=== PATIENT | male | born 1965 | race Two or more races ===

== ENCOUNTER 2020-06-10 21:41 | Inpatient (IN) | payer OTHER, SELFPAY ==
[2020-06-10 22:02] VITALS: BP 129/71; PULSE 99; RESP 18; TEMP 36.8; O2SAT 96; BMI 55.9
--- NOTE | 2020-06-10 22:12 | ECG_ITS ---
Test Reason : MEDICALLY CLEARED Blood Pressure : / mmHG Vent. Rate : 070 BPM Atrial Rate : 072 BPM P-R Int : 162 ms QRS Dur : 084 ms QT Int : 386 ms P-R-T Axes : 069 072 049 degrees QTc Int : 419 ms Normal sinus rhythm Normal ECG No previous ECGs available Referred By: Alexia Saez Electronically Signed By: SELWYN LARIOS MD MTDElizabeth
[2020-06-10] MEDS: LORazepam 0.5 MG TABLET PO (22:49)
--- NOTE | 2020-06-10 23:10 | PC.NURSE ---
[facility] faxed/pending confirmation, patient swabbed for Covid/sent to lab pending result. will continue to monitor.
[2020-06-10 23:37] VITALS: BP 111/72; PULSE 78; RESP 17; TEMP 37.1; O2SAT 97
--- NOTE | 2020-06-10 23:40 | MHC.MBSS ---
Patient compliant with lab draw order, N called/spoke with Dian/confirmed receipt of referral. Patient received Ativan 0.5 mg as ordered/with + effect. Patient reported he is currently not on any medication. Will continue to monitor.
[2020-06-11 00:04] LABS: Basophils Percent Auto 0.5 % (0-2); Eosinophils Absolute Auto 0.2 X10*3/uL (0.0-0.4); Eosinophils Percent Auto 2.9 % (0-4); Hematocrit 40.7 % (42-52); Hemoglobin 13.4 g/dl (14.0-18.0); Imm Gran Abs Auto 0.02 X10*3/uL (0.00-0.03); Imm Gran Pct Auto 0.3 % (0.0-0.4); Lymphocytes Absolute Auto 1.9 X10*3/uL (1.2-4.9); Lymphocytes Percent Auto 24.9 % (20-40); Mean Corpuscular HGB Conc 32.9 g/dl (31.0-36.0); Mean Corpuscular Hemoglobin 30.7 pg (27.0-33.0); Mean Corpuscular Volume 93.3 fL (80-98); Monocytes Absolute Auto 0.6 X10*3/uL (0.1-1.2); Monocytes Percent Auto 8.1 % (2-11); Neutrophils Absolute Auto 4.8 X10*3/uL (2.0-8.3); Neutrophils Percent Auto 63.3 % (45-73); Platelet Count 188 X10*3/uL (160-400); Red Blood Count 4.36 X10*6/uL (4.60-5.80); Red Cell Distribution Width 13.1 % (11.0-16.0); White Blood Count 7.6 X10*3/uL (4.8-10.8)
[2020-06-11 00:06] LABS: MANUAL DIFF FLAG NO
[2020-06-11 00:08] LABS: SARS COV2 PCR INHOUSE NEGATIVE (Negative)
[2020-06-11 00:10] LABS: INTERNATIONAL NORM RATIO 0.9 (0.9-1.1); Prothrombin Time 11.1 SEC (10.8-13.0)
[2020-06-11 00:32] LABS: Ethanol < 10 mg/dL
--- NOTE | 2020-06-11 00:33 | ED_ITS ---
HPI - Psych General Chief Complaint: Psychiatric Symptoms Stated Complaint: crisis Time Seen by Provider: 06/10/20 22:12 Source: patient and EMS Mode of arrival: EMS Limitations: no limitations History of Present Illness HPI Narrative: 55yoM c PMHx of substance dependent of heroin and ETOH presenting to the ED c c/o increased anxiety, depression c auditory hallucinations telling him to kill himself and SI plan to either hang himself, shot himself or jump from a building. Reports he last did heroin a few days ago and he sniffs the heroin. Reports he drank alcohol today a few hours ago drank a few beers. Repo rts he drinks daily approximately three 24 oz of beers. Reports he is currently homeless. Denies visual hallucinations. Denies any other injuries complaints or concerns at this time. Related Data Allergies Allergy/AdvReac Type Severity Reaction Status Date / Time No Known Allergies Allergy Unverified 04/21/20 15:03 [No Known Allergies*] Review of Systems Review of Systems: Constitutional : No Fever, No Chills ENT/Mouth : No Ear Pain, No Nasal Congestion, No sore throat Eyes: No Eye Pain, No Swelling, No Redness Cardiovascular : No Chest Pain, No SOB Respiratory : No Cough, No Sputum, No Dyspnea Gastrointestinal : No ingestions, No Nausea, No Vomiting, No Diarrhea, No Hematochezia, No Melena Genitourinary : No Dysuria, No Urinary Frequency, No Hematuria Musculoskeletal : No Myalgias Skin : No Skin Lesions, No rash Neuro : No Weakness, No Numbness, No Paresthesias, No Dizziness, No Headache Psych : + Anxiety, + Depression, + SI, + auditory hallucinations, No thoughts of self injury, No HI, No AVH, Heme/Lymph: No Lymphadenopathy Endocrine : No Polyuria, No Polydipsia Yes all other systems are reviewed and are negative FOR[facility]LY [facility], [facility] Past Medical History Attestation statement: The following information was validated with the patient. Social History Social History Advance Directives: No Advance Directives Information Provided: No Physical Exam Vital Signs: Vital Signs: Last Vital Signs Temp 98.8 F 06/10/20 23:37 Pulse 78 06/10/20 23:37 Resp 17 06/10/20 23:37 BP 111/72 06/10/20 23:37 Pulse Ox 97 06/10/20 23:37 Body Mass Index 55.9 vital signs have been reviewed as normal and appeared to be correct. Blood pressure normal. Heart rate normal. Respiration rate normal. Temperature normal. Oxygen saturation normal. Appearance: Alert. Oriented X3. No acute distress. Head: Normal external exam. Normocephalic. Atraumatic. No Sarah signs noted. No raccoon eyes noted Eyes: PERRLA. EOMI. Conjunctiva and sclera normal. Eyelids normal. ENT: EAC normal. TM's Normal. Pharynx normal. Uvula midline. Moist mucous membranes. Neck: Normal inspection. Neck supple. FROM. No adenopathy. Thyroid Normal. No meningeal signs. No neck mass noted. CVS: Normal heart rate and rhythm. Heart sound normal. No murmurs noted. Pulses normal throughout. Respiratory: No respiratory distress. Painless inspiration. Breath sounds normal. No wheezes/rales/rhonchi noted. Chest nontender. No accessory muscle usage noted or decreased air movement noted. Abdomen: Soft and nontender. Bowel sounds normal in all 4 quadrants. No distention noted. No organomegaly noted. No visible injury noted. Back: No CVA tenderness. Full range of motion noted. Skin: Skin warm and dry. Normal skin color. Normal skin turgor. No rashes/lesions/lacerations noted. Extremities: No lower extremity edema. Extremities exhibit normal range of motion. Extremities nontender. Neuro: Oriented X 3. No motor deficit. No sensory deficit. Reflexes normal. Psych: Appearance grossly normal, well-kept, mental status normal, speech and movement normal, speech clear, patient appears very sad and anxious along with depressed. Is cooperative. Does not have Normal thought process he has a plan to throw himself him a building, shot self or hang self. No good thought conten t. No good insight. No Judgment good. Course Course Course Narrative: 22:12PM - 55yoM c PMHx of substance dependent of heroin and ETOH presenting to the ED c c/o increased anxiety, depression c auditory hallucinations telling him to kill himself and SI plan to either hang himself, shot himself or jump from a building. - Plan: Labs, EKG, COVID swab, drug screen, etoh level and then once medically cleared [facility] evaluation. Reevaluation(s) Reevaluation #1: - BUN at 27. Otherwise all other labs WNL. COVID swab negative. Patient is able to tolerate p.o. fluids therefore will instruct patient to drink fluids. Pt + for opiates, cocaine. All other negative for drugs. ETOH negative. Patient medically cleared at this time. Being evaluated by N at this time. Time: 01:11 MDM - Psych Restraints Face to Face Assessment: Face to Face Assessment: Current Situation: After assessment of the patient, a review of the pertinent medical record and a discussion with nursing staff, I feel the patient requires a restrain intervention. Reaction To: [] Medical Condition: [] Behavioral State: [] Continued Need: [] Medical Records Attestation: I reviewed the patient's medical records. Lab Data Attestation: I reviewed the patient's lab results. Result diagrams: 06/10/20 23:56 06/10/20 23:56 Labs: Lab Results 06/10/20 06/10/20 06/10/20 Range/Units 22:57 23:56 23:56 WBC 7.6 (4.8-10.8) X10*3/uL RBC 4.36 L (4.60-5.80) X10*6/uL Hgb 13.4 L (14.0-18.0) g/dl Hct 40.7 L (42-52) % MCV 93.3 (80-98) fL MCH 30.7 (27.0-33.0) pg MCHC 32.9 (31.0-36.0) g/dl RDW 13.1 (11.0-16.0) % Plt Count 188 (160-400) X10*3/uL MPV 10.0 (9.4-12.4) fL Immature Gran % (Auto) 0.3 (0.0-0.4) % Neut % (Auto) 63.3 (45-73) % Lymph % (Auto) 24.9 (20-40) % [place] % (Auto) 8.1 (2-11) % Eos % (Auto) 2.9 (0-4) % Baso % (Auto) 0.5 (0-2) % Lymph # (Auto) 1.9 (1.2-4.9) X10*3/uL [place] # (Auto) 0.6 (0.1-1.2) X10*3/uL Eos # (Auto) 0.2 (0.0-0.4) X10*3/uL Baso # (Auto) 0.0 (0.0-0.2) X10*3/uL Abs Immat Gran (auto) 0.02 (0.00-0.03) X10*3/uL Absolute Neuts (auto) 4.8 (2.0-8.3) X10*3/uL Absolute Nucleated RBC 0.000 (0.0-0.012) X10*3/uL Nucleated RBC % (auto) 0.0 (0.0-0.2) /100WBC PT 11.1 (10.8-13.0) SEC INR 0.9 (0.9-1.1) Sodium (135-145) mmol/L Potassium (3.3-5.1) mmol/l Chloride (96-108) mmol/L Carbon Dioxide (22-29) mmol/L Anion Gap (12-20) BUN (9-16) mg/dL Creatinine (0.5-1.4) mg/dL Estim Creat Clear Calc Estimated GFR Random Glucose (60-115) mg/dL Calcium (8.4-10.2) mg/dL Magnesium (1.6-2.6) mg/dL Total Bilirubin (0.0-1.0) mg/dL Direct Bilirubin (0.0-0.5) mg/dL AST (5-37) U/L ALT (0-40) U/L Alkaline Phosphatase (39-117) U/L Total Protein (6.5-8.0) g/dL Albumin (3.5-5.0) g/dL Urine Opiates Screen (Not Detect) Ur Barbiturates Screen (Not Detect) Ur Phencyclidine Scrn (Not Detect) Ur Amphetamines Screen (Not Detect) U Benzodiazepines Scrn (Not Detect) Urine Cocaine Screen (Not Detect) U Marijuana (THC) Screen (Not Detect) Ethyl Alcohol mg/dL Coronavirus (PCR) NEGATIVE (Negative) 06/10/20 06/10/20 06/11/20 Range/Units 23:56 23:56 00:25 WBC (4.8-10.8) X10*3/uL RBC (4.60-5.80) X10*6/uL Hgb (14.0-18.0) g/dl Hct (42-52) % MCV (80-98) fL MCH (27.0-33.0) pg MCHC (31.0-36.0) g/dl RDW (11.0-16.0) % Plt Count (160-400) X10*3/uL MPV (9.4-12.4) fL Immature Gran % (Auto) (0.0-0.4) % Neut % (Auto) (45-73) % Lymph % (Auto) (20-40) % [place] % (Auto) (2-11) % Eos % (Auto) (0-4) % Baso % (Auto) (0-2) % Lymph # (Auto) (1.2-4.9) X10*3/uL [place] # (Auto) (0.1-1.2) X10*3/uL Eos # (Auto) (0.0-0.4) X10*3/uL Baso # (Auto) (0.0-0.2) X10*3/uL Abs Immat Gran (auto) (0.00-0.03) X10*3/uL Absolute Neuts (auto) (2.0-8.3) X10*3/uL Absolute Nucleated RBC (0.0-0.012) X10*3/uL Nucleated RBC % (auto) (0.0-0.2) /100WBC PT (10.8-13.0) SEC INR (0.9-1.1) Sodium 146 H (135-145) mmol/L Potassium 4.4 (3.3-5.1) mmol/l Chloride 109 H (96-108) mmol/L Carbon Dioxide 29 (22-29) mmol/L Anion Gap 12 (12-20) BUN 27 H (9-16) mg/dL Creatinine 1.23 (0.5-1.4) mg/dL Estim Creat Clear Calc 102.6 Estimated GFR > 60 Random Glucose 117 H (60-115) mg/dL Calcium 8.8 (8.4-10.2) mg/dL Magnesium 2.2 (1.6-2.6) mg/dL Total Bilirubin 0.3 (0.0-1.0) mg/dL Direct Bilirubin 0.2 (0.0-0.5) mg/dL AST 15 (5-37) U/L ALT 14 (0-40) U/L Alkaline Phosphatase 67 (39-117) U/L Total Protein 6.6 (6.5-8.0) g/dL Albumin 3.8 (3.5-5.0) g/dL Urine Opiates Screen POSITIVE H (Not Detect) Ur Barbiturates Screen Not Detected (Not Detect) Ur Phencyclidine Scrn Not Detected (Not Detect) Ur Amphetamines Screen Not Detected (Not Detect) U Benzodiazepines Scrn Not Detected (Not Detect) Urine Cocaine Screen POSITIVE H (Not Detect) U Marijuana (THC) Screen Not Detected (Not Detect) Ethyl Alcohol < 10 mg/dL Coronavirus (PCR) (Negative) Discharge Plan Discharge Clinical Impression: Acute anxiety, Suicidal ideations, Acute post-traumatic stress disorder Depression Qualifiers: Depression Type: unspecified Qualified Code(s): F32.9 - Major depressive disorder, single episode, unspecified
[2020-06-11 00:36] LABS: Alanine Aminotransferase 14 U/L (0-40); Albumin Level 3.8 g/dL (3.5-5.0); Alkaline Phosphatase 67 U/L (39-117); Anion Gap 12 (12-20); Aspartate Amino Transferase 15 U/L (5-37); Bilirubin Direct 0.2 mg/dL (0.0-0.5); Bilirubin Total 0.3 mg/dL (0.0-1.0); Blood Urea Nitrogen 27 mg/dL (9-16); Calcium 8.8 mg/dL (8.4-10.2); Carbon Dioxide 29 mmol/L (22-29); Chloride 109 mmol/L (96-108); Creatinine Clr Calc Pharmacy 102.6; Estimated Glomerular Filt Rate > 60; Glucose Random 117 mg/dL (60-115); Magnesium 2.2 mg/dL (1.6-2.6); Potassium 4.4 mmol/l (3.3-5.1); Sodium 146 mmol/L (135-145); Total Protein 6.6 g/dL (6.5-8.0)
[2020-06-11 01:02] LABS: Amphetamine Screen Urine Not Detected (Not Detect); Barbiturates, Urine Not Detected (Not Detect); Benzodiazepines Screen Urine Not Detected (Not Detect); Cannabinoid Screen Urine Not Detected (Not Detect); Cocaine Screen Urine POSITIVE (Not Detect); Opiate Screen Urine POSITIVE (Not Detect); Phencyclidine Screen Urine Not Detected (Not Detect)
[2020-06-11] MEDS: Ibuprofen 600 MG TABLET PO (01:20)
--- NOTE | 2020-06-11 01:24 | PC.NURSE ---
Patient complains of groin & leg pain 12/12, Ibuprofen 600 mg administered as ordered/pending effect/response. Compliant with EKG, will continue to monitor.
--- NOTE | 2020-06-11 02:35 | PC.NURSE ---
Patient in his room, speaking with [facility], seems enagaged, will continue to monitor.
--- NOTE | 2020-06-11 03:46 | PC.NURSE ---
MAYAN finished assessing the patient, disposition updated, patient is in patient bed search, patient currently in bed appears sleeping, no distress observed/reported, will continue to monitor.
--- NOTE | 2020-06-11 06:03 | PC.NURSE ---
Patient in bed appears sleeping comfortably, no distress observed/reported, respiration +/=/non-labored bilaterally, will continue to monitor.
--- NOTE | 2020-06-11 07:44 | PC.NURSE ---
Report received from ATIYA Castillo. Pt resting, resp unlabored.
[2020-06-11 12:00] VITALS: BP 143/78; PULSE 61; RESP 20; TEMP 37.1; O2SAT 98
[2020-06-11 16:22] VITALS: BP 156/85; PULSE 69; RESP 16; TEMP 37.2; O2SAT 97
--- NOTE | 2020-06-11 18:07 | PC.NURSE ---
Pt resting, resp unlabored. Pt awake earlier, went to bathroom- answers only briefly when asked questions. No concerns reported.
--- NOTE | 2020-06-11 19:20 | PC.NURSE ---
Patient in bed appears sleeping, per report patient has been mostly isolative in his room, eating and hydrating well, elimination intact, no distress reported, patient received no medication through out the day, will continue to monitor.
[2020-06-11 21:48] VITALS: BP 142/84; PULSE 67; RESP 18; TEMP 37.1; O2SAT 100
[2020-06-11] MEDS: LORazepam 0.5 MG TABLET PO (23:43)
--- NOTE | 2020-06-12 00:11 | PC.NURSE ---
Patient seems restless, prn Ativan 0.5 mg administered/pending effect, compliant with medication/Vital Signs assessment. No distress reported. Will continue to monitor.
[2020-06-12 00:24] VITALS: BP 158/79; PULSE 63; RESP 17; TEMP 36.9; O2SAT 99
[2020-06-12] MEDS: LORazepam 0.5 MG TABLET PO ×2 (04:15→21:12)
--- NOTE | 2020-06-12 04:22 | PC.NURSE ---
Patient tremulous while in bed lying, sneezed few times, appears restless, possible detoxing, provider notified/ordered Ativan 0.5 mg/administered as ordered/covered with warm blanket. Will continue to monitor.
--- NOTE | 2020-06-12 06:35 | PC.NURSE ---
Patient in bed appears sleeping restlessly, no distress observed/reported, respiration +/=/non-labored bilaterally, will continue to monitor.
--- NOTE | 2020-06-12 07:28 | PC.NURSE ---
Report received from ATIYA Castillo. Pt resting, resp unlabored.
[2020-06-12 10:51] VITALS: BP 141/89; PULSE 68; RESP 15; TEMP 36.9; O2SAT 99
[2020-06-12 16:06] VITALS: BP 166/93; PULSE 64; RESP 18; TEMP 37.2; O2SAT 99
--- NOTE | 2020-06-12 17:58 | PC.NURSE ---
Pt awake, vomiting, reports he is withdrawing, last used 2 days ago. Pt states he would like to start suboxone. N March aware.
[2020-06-12 18:00] VITALS: PULSE 64
--- NOTE | 2020-06-12 18:44 | PC.NURSE ---
no further vomiting at this time. pt offered ativan x2 but declined.
--- NOTE | 2020-06-12 20:36 | PC.NURSE ---
Patient observed sneezing few times, restless, over 50 hours last use heroin, patient was on Suboxone 03/06 film BID stopped taking it since 04/26/20, patient is going through mild detox at this time but refused to take Suboxone 11/03 at this time stating it will his feeling worse patient educated/continued refusing suboxone. Will continue to monitor and assess for COWS.
[2020-06-12 23:55] VITALS: RESP 17
[2020-06-13] VITALS (8 sets, daily range): BP systolic 109–161; BP diastolic 63–86; PULSE 60–102; RESP 17–18; TEMP 36.5–37.9; O2SAT 96–99
--- NOTE | 2020-06-13 00:52 | PC.NURSE ---
Patient in bed appears sleeping, no distress observed/reported, respiration +/=/non-labored bilaterally, will continue to monitor for withdrawal and provide comfort.
--- NOTE | 2020-06-13 02:57 | PC.NURSE ---
Patient in bed appears sleeping, no distress observed/reported, respiration +/=/non-labored bilaterally, will continue to monitor.
--- NOTE | 2020-06-13 03:24 | PC.NURSE ---
Patient got reevaluated by [facility] disposition unchanged inpatient bed search. Will continue to monitor.
--- NOTE | 2020-06-13 05:03 | PC.NURSE ---
Patient in bed appears sleeping, patient was up earlier briefly for bathroom use and back, no distress reported, respiration +/=/non-labored bilaterally, will continue to monitor.
[2020-06-13] MEDS: LORazepam 0.5 MG TABLET PO (06:15)
--- NOTE | 2020-06-13 06:22 | PC.NURSE ---
Patient in bed resting quietly, denied distress, temp was 100.2 patient not hydrating well, encouraged fluid intake, COWS assessed scored 3, PRN Atian 05 mg administered as ordered, provider notified/no new order this time, will monitor temperature.
--- NOTE | 2020-06-13 06:59 | PC.NURSE ---
Report recieved. Pt currently resting, in no apparent distress. Pt is inpatient bedsearch. Breakfast at bedside.
[2020-06-13] MEDS: Acetaminophen 325 MG TABLET 650 MG PO (09:36)
[2020-06-13] MEDS: Buprenorphine/Naloxone 4/1 mg FILM 1 FILM SUBLINGUAL ×2 (09:36→21:13)
--- NOTE | 2020-06-13 20:59 | PC.NURSE ---
Pt 3 day signed on 06/13, up on 06/16
[2020-06-13] MEDS: Divalproex Sodium ER 500 MG TAB.ER.24H PO (21:12)
[2020-06-13] MEDS: QUEtiapine Fumarate 100 MG TABLET PO (21:12)
[2020-06-13] MEDS: Prazosin HCL 1 MG CAPSULE PO (21:14)
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
[2020-06-14 06:20] VITALS: BP 117/58; PULSE 63; RESP 16; TEMP 36.5; O2SAT 100
[2020-06-14] MEDS: Nicotine 21 MG PATCH.TD24 TRANSDERMA (08:39)
[2020-06-14] MEDS: QUEtiapine Fumarate 100 MG TABLET PO ×2 (08:39→20:38)
[2020-06-14] MEDS: LORazepam 0.5 MG TABLET PO (08:41)
[2020-06-14 08:53] LABS: Alanine Aminotransferase 13 U/L (0-40); Albumin Level 3.9 g/dL (3.5-5.0); Alkaline Phosphatase 60 U/L (39-117); Anion Gap 12 (12-20); Aspartate Amino Transferase 11 U/L (5-37); Bilirubin Total 0.8 mg/dL (0.0-1.0); Blood Urea Nitrogen 28 mg/dL (9-16); Calcium 9.3 mg/dL (8.4-10.2); Carbon Dioxide 30 mmol/L (22-29); Chloride 100 mmol/L (96-108); Cholesterol 150 mg/dL; Creatinine Clr Calc Pharmacy 115.8; Estimated Glomerular Filt Rate > 60; Glucose Fasting 94 mg/dL (60-99); HDL Cholesterol 51 mg/dL; LDL Cholesterol Calculated 89 mg/dl; Potassium 4.6 mmol/l (3.3-5.1); Sodium 137 mmol/L (135-145); Triglycerides 53 mg/dL
[2020-06-14 09:14] LABS: Thyroid Stimulating Hormone 1.95 uIU/mL (0.32-4.0)
[2020-06-14 09:26] LABS: Folate 15.9 ng/mL (> or = 4.0); Vitamin B12 227 pg/mL (200-900)
[2020-06-14 10:44] VITALS: BP 117/58; PULSE 63; TEMP 36.5
[2020-06-14 18:00] VITALS: BP 112/63; PULSE 95; TEMP 36.2
[2020-06-14 20:39] VITALS: BP 112/63; PULSE 92
[2020-06-14] MEDS: Prazosin HCL 1 MG CAPSULE PO (20:39)
[2020-06-14] MEDS: Buprenorphine/Naloxone 4/1 mg FILM 1 FILM SUBLINGUAL (20:39)
[2020-06-14] MEDS: Divalproex Sodium ER 500 MG TAB.ER.24H PO (20:39)
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
[2020-06-15 06:00] VITALS: BP 115/72; PULSE 79; TEMP 36.5; O2SAT 100
[2020-06-15] MEDS: Nicotine 21 MG PATCH.TD24 TRANSDERMA (08:55)
[2020-06-15] MEDS: QUEtiapine Fumarate 100 MG TABLET PO ×2 (08:55→20:50)
[2020-06-15] MEDS: Buprenorphine/Naloxone 4/1 mg FILM 1 FILM SUBLINGUAL ×2 (08:56→14:59)
[2020-06-15 18:00] VITALS: BP 109/72; PULSE 82; TEMP 36.6
[2020-06-15 20:51] VITALS: BP 109/72; PULSE 82
[2020-06-15] MEDS: Divalproex Sodium ER 500 MG TAB.ER.24H PO (20:51)
[2020-06-15] MEDS: Prazosin HCL 1 MG CAPSULE PO (20:51)
--- NOTE | 2020-06-15 23:17 | HO.PSYCHPN ---
Subjective Subjective Reason For Visit: depression hallucinations si Subjective Notes: Conditional Voluntary and 3 Day Interim History: pt doing better with dep and seroquel no frankel future oriented Medication Compliance: Yes Mental Status Exam Mental Status Exam Patient Appearance: Appropriate Patient Orientation: Person, Place and Time Level of Consciousness: Awake Patient Behavior: Appropriate, Cooperative and Passive Mood Description: Calm and Appropriate Affect Description: Calm, Appropriate and Anxious Memory Description: Intact Hallucinations: None Delusions: Not Present Thought Process: Intact Thought Content: positive for Intact, negative for Suicidal Ideation and negative for Homicidal Ideation Diagnostics Vital Signs (24Hr): Vital Signs - 24 hr 06/15/20 06:00 06/15/20 18:00 06/15/20 20:51 Temperature 97.7 F 98 F Pulse Rate 79 82 82 Blood Pressure 115/72 109/72 109/72 Pulse Oximetry 100 Body Mass Index 55.9 Labs Results: 06/10/20 23:56 06/14/20 07:59 Labs: Laboratory Results - last 48 hr 06/14/20 06/14/20 07:59 07:59 Sodium 137 Potassium 4.6 Chloride 100 Carbon Dioxide 30 H Anion Gap 12 BUN 28 H Creatinine 1.09 Estim Creat Clear Calc 115.8 Estimated GFR > 60 Fasting Glucose 94 Calcium 9.3 Total Bilirubin 0.8 AST 11 ALT 13 Alkaline Phosphatase 60 Total Protein 7.0 Albumin 3.9 Triglycerides 53 Cholesterol 150 LDL Cholesterol, Calc 89 HDL Cholesterol 51 Vitamin B12 227 Folate 15.9 TSH 1.95 Medications Medications Current Medications Generic Name Dose Route Start Last Admin Trade Name Freq PRN Reason Stop Dose Admin Acetaminophen 650 mg 06/13/20 20:07 Acetaminophen 325 Mg Tablet PO Q6H PRN Headache/Pain Mild Scale (1-3) Al Hydroxide/Mg Hydroxide 30 ml 06/13/20 20:07 Magnesium Hydrox/Alum Hydrox 30 Ml Oral.Susp PO Q6H PRN Heartburn/Nausea Buprenorphine/Naloxone 1 tab 06/16/20 09:00 Buprenorphine/Naloxone 8/2 Mg Tab.Subl SUBLINGUAL DAILY RAS Divalproex Sodium 500 mg 06/13/20 21:00 06/15/20 20:51 Divalproex Sodium Er 500 Mg Tab.Er.24h PO 500 mg BEDTIME RAS Administration Hydroxyzine HCl 25 mg 06/13/20 20:07 Hydroxyzine Hcl 25 Mg Tablet PO BEDTIME PRN Anxiety Lorazepam 0.5 mg 06/15/20 22:22 Lorazepam 0.5 Mg Tablet PO Q6H PRN anxiety Magnesium Hydroxide 30 ml 06/13/20 20:07 Milk Of Magnesia 30 Ml Oral.Susp PO DAILY PRN Constipation Nicotine 21 mg 06/14/20 09:00 06/15/20 08:55 Nicotine 21 Mg Patch.Td24 TRANSDERMA 21 mg DAILY RAS Administration Nicotine Polacrilex 2 mg 06/13/20 20:07 Nicotine Polacrilex 2 Mg Gum BUCCAL Q2H PRN Nicotine Cravings Prazosin HCl 1 mg 06/13/20 21:00 06/15/20 20:51 Prazosin Hcl 1 Mg Capsule PO 1 mg BEDTIME RAS Administration Protocol Quetiapine Fumarate 50 mg 06/13/20 20:07 Quetiapine Fumarate 50 Mg Tablet PO Q4H PRN Anxiety Quetiapine Fumarate 100 mg 06/13/20 21:00 06/15/20 20:50 Quetiapine Fumarate 100 Mg Tablet PO 100 mg BID RAS Administration Trazodone HCl 50 mg 06/13/20 20:07 Trazodone Hcl 50 Mg Tablet PO BEDTIME PRN Insomnia Allergies Allergies Allergy/AdvReac Type Severity Reaction Status Date / Time No Known Allergies Allergy Unverified 06/14/20 08:31 [No Known Allergies*] Assessment & Plan Assessment & Plan (1) Suicidal ideations: Status: Acute Code(s): R45.851 - Suicidal ideations (2) Depression: Qualifiers: Depression Type: unspecified Qualified Code(s): F32.9 - Major depressive disorder, single episode, unspecified Status: Acute Code(s): F32.9 - Major depressive disorder, single episode, unspecified (3) Cocaine use disorder: Status: Acute Code(s): F14.10 - Cocaine abuse, uncomplicated (4) Chronic post-traumatic stress disorder (PTSD): Status: Acute Code(s): F43.12 - Post-traumatic stress disorder, chronic Assessment and Plan: restart Seroquel on Depakote patient much more stable continue Suboxone referral for outpatient treatment Greater than 50% of the session was spent on counseling and/or coordination of care Patient educated on: diagnosis, medication risk/benefits and substance abuse Reason for contiued inpatient stay Substantial Risk for: harm to self and rapid decompensation
[2020-06-16 06:12] VITALS: BP 123/73; PULSE 73; RESP 16; TEMP 36.7; O2SAT 99
[2020-06-16 07:00] VITALS: BMI 27.6
[2020-06-16] MEDS: Nicotine 21 MG PATCH.TD24 TRANSDERMA (09:22)
[2020-06-16] MEDS: QUEtiapine Fumarate 100 MG TABLET PO ×2 (09:22→21:17)
[2020-06-16] MEDS: Buprenorphine/Naloxone 8/2 mg TAB.SUBL 1 TAB SUBLINGUAL (09:23)
[2020-06-16 18:00] VITALS: BP 134/75; PULSE 87; TEMP 36.4
[2020-06-16 21:17] VITALS: BP 131/75; PULSE 87
[2020-06-16] MEDS: Divalproex Sodium ER 500 MG TAB.ER.24H PO (21:17)
[2020-06-16] MEDS: Prazosin HCL 1 MG CAPSULE PO (21:17)
--- NOTE | 2020-06-16 23:31 | HO.PSYCHPN ---
Subjective Subjective Reason For Visit: depression hallucinations si Diagnostics Vital Signs (24Hr): Vital Signs - 24 hr 06/16/20 06:12 06/16/20 18:00 06/16/20 21:17 Temperature 98.1 F 97.6 F Pulse Rate 73 87 87 Respiratory Rate 16 Blood Pressure 123/73 134/75 131/75 Pulse Oximetry 99 Body Mass Index 27.6 Labs Results: 06/10/20 23:56 06/14/20 07:59 Medications Medications Current Medications Generic Name Dose Route Start Last Admin Trade Name Freq PRN Reason Stop Dose Admin Acetaminophen 650 mg 06/13/20 20:07 Acetaminophen 325 Mg Tablet PO Q6H PRN Headache/Pain Mild Scale (1-3) Al Hydroxide/Mg Hydroxide 30 ml 06/13/20 20:07 Magnesium Hydrox/Alum Hydrox 30 Ml Oral.Susp PO Q6H PRN Heartburn/Nausea Buprenorphine/Naloxone 1 tab 06/16/20 09:00 06/16/20 09:23 Buprenorphine/Naloxone 8/2 Mg Tab.Subl SUBLINGUAL 1 tab DAILY RAS Administration Divalproex Sodium 500 mg 06/13/20 21:00 06/16/20 21:17 Divalproex Sodium Er 500 Mg Tab.Er.24h PO 500 mg BEDTIME RAS Administration Hydroxyzine HCl 25 mg 06/13/20 20:07 Hydroxyzine Hcl 25 Mg Tablet PO BEDTIME PRN Anxiety Lorazepam 0.5 mg 06/15/20 22:22 Lorazepam 0.5 Mg Tablet PO Q6H PRN anxiety Magnesium Hydroxide 30 ml 06/13/20 20:07 Milk Of Magnesia 30 Ml Oral.Susp PO DAILY PRN Constipation Nicotine 21 mg 06/14/20 09:00 06/16/20 09:22 Nicotine 21 Mg Patch.Td24 TRANSDERMA 21 mg DAILY RAS Administration Nicotine Polacrilex 2 mg 06/13/20 20:07 Nicotine Polacrilex 2 Mg Gum BUCCAL Q2H PRN Nicotine Cravings Prazosin HCl 1 mg 06/13/20 21:00 06/16/20 21:17 Prazosin Hcl 1 Mg Capsule PO 1 mg BEDTIME RAS Administration Protocol Quetiapine Fumarate 50 mg 06/13/20 20:07 Quetiapine Fumarate 50 Mg Tablet PO Q4H PRN Anxiety Quetiapine Fumarate 100 mg 06/13/20 21:00 06/16/20 21:17 Quetiapine Fumarate 100 Mg Tablet PO 100 mg BID RAS Administration Trazodone HCl 50 mg 06/13/20 20:07 Trazodone Hcl 50 Mg Tablet PO BEDTIME PRN Insomnia Allergies Allergies Allergy/AdvReac Type Severity Reaction Status Date / Time No Known Allergies Allergy Unverified 06/14/20 08:31 [No Known Allergies*] Assessment & Plan Assessment & Plan (1) Chronic post-traumatic stress disorder (PTSD): Status: Acute Code(s): F43.12 - Post-traumatic stress disorder, chronic (2) Atypical bipolar disorder: Status: Acute Code(s): F31.89 - Other bipolar disorder (3) Opioid use disorder, moderate, in early remission, on maintenance therapy, dependence: Status: Acute Code(s): F11.21 - Opioid dependence, in remission Greater than 50% of the session was spent on counseling and/or coordination of care
[2020-06-17 06:15] VITALS: BP 121/68; PULSE 80; RESP 18; TEMP 36.6; O2SAT 99
[2020-06-17] MEDS: Buprenorphine/Naloxone 8/2 mg TAB.SUBL 1 TAB SUBLINGUAL (09:19)
[2020-06-17] MEDS: QUEtiapine Fumarate 100 MG TABLET PO (09:19)
[2020-06-17] MEDS: Nicotine 21 MG PATCH.TD24 TRANSDERMA (09:20)
[2020-06-17] MEDS: Naloxone HCl Nasal TAKE HOME 4 MG SPRAY NOSTRILALT (11:51)
[2020-06-17] MEDS: Cyanocobalamin (Vitamin B-12) 1,000 MCG/ML VIAL 1000 MCG IM (12:01)
[2020-06-17 13:33] LABS: Valproate < 2.0 mcg/mL (50.0-100.0)
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
== END 2020-06-17 14:11 | disposition home or self-care (01) | DRG 753 ==
LOC: HO.ED 06-11 00:42 → HO.PM5 06-13 13:02
PROVIDERS: Physician Assistant Medical; Admitting Provider Psychiatry & Neurology Psychiatry; Emergency Provider Internal Medicine; Visit Provider Psychiatry & Neurology Psychiatry
DX: F31.89 Other bipolar disorder (principal); R45.851 Suicidal ideations; F11.20 Opioid dependence, uncomplicated; F43.10 Post-traumatic stress disorder, unspecified; F17.210 Nicotine dependence, cigarettes, uncomplicated; Z71.6 Tobacco abuse counseling; Z20.828 Contact with and (suspected) exposure to other viral communicable diseases; Z79.899 Other long term (current) drug therapy
CPT/HCPCS: 36415; 80048; 80053; 80061; 80076; 80164; 80307; 80320; 82607; 82746; 83735; 84443; 85025; 85610; 90792; 93005; 99232; 99239; 99285; J0573; J0574; U0003

== ENCOUNTER → 2020-06-20 14:08 | Outpatient (BNVA) | payer MEDICAID, SELFPAY | PROVIDERS: Visit Provider Internal Medicine | DX: F11.20 Opioid dependence, uncomplicated (principal); F14.10 Cocaine abuse, uncomplicated; F31.89 Other bipolar disorder | CPT/HCPCS: 80305; 99211; 99212 ==

== ENCOUNTER → 2020-07-18 11:06 | Outpatient (BNVA) | payer OTHER, SELFPAY | PROVIDERS: Visit Provider Internal Medicine | DX: Z76.89 Persons encountering health services in other specified circumstances (principal) ==

== ENCOUNTER → 2020-08-01 15:20 | Outpatient (BNVA) | payer OTHER, SELFPAY | PROVIDERS: Visit Provider Internal Medicine | DX: Z76.89 Persons encountering health services in other specified circumstances (principal) ==

== ENCOUNTER → 2020-08-15 09:11 | Outpatient (BNVA) | payer MEDICAID, OTHER, SELFPAY | PROVIDERS: Visit Provider Internal Medicine | DX: Z76.89 Persons encountering health services in other specified circumstances (principal) ==

== ENCOUNTER → 2020-08-22 13:25 | Outpatient (BNVA) | payer MEDICAID, OTHER, SELFPAY | PROVIDERS: PCP Internal Medicine; Visit Provider Internal Medicine ==

== ENCOUNTER → 2020-08-29 10:59 | Outpatient (BNVA) | payer MEDICAID, OTHER, SELFPAY | PROVIDERS: Visit Provider Internal Medicine ==

== ENCOUNTER → 2020-09-06 10:46 | Outpatient (BNVA) | payer MEDICAID, OTHER, SELFPAY | PROVIDERS: Visit Provider Internal Medicine ==

== ENCOUNTER → 2020-09-13 10:37 | Outpatient (BNVA) | payer MEDICAID, OTHER, SELFPAY | PROVIDERS: Visit Provider Internal Medicine ==

== ENCOUNTER 2020-09-14 08:31 | Emergency (ER) | payer MEDICAID, SELFPAY ==
[2020-09-14 09:03] VITALS: BP 151/93; PULSE 78; RESP 12; TEMP 36.8; O2SAT 100; BMI 26.3
[2020-09-14 10:13] LABS: MANUAL DIFF FLAG NO
--- NOTE | 2020-09-14 10:13 | ED.PSYCH ---
HPI - Psych General Chief Complaint: Psychiatric Symptoms Stated Complaint: CRISIS Source: patient Mode of arrival: ambulatory Limitations: no limitations History of Present Illness HPI Narrative: Patient presents to ED for suicide ideation with no plan. Patient states he lost medication, is homeless, and feels depressed. Once again patient has no actual plan on how to kill himself Related Data Home Medications Medication Instructions Recorded Confirmed prazosin 1 mg capsule 3 mg PO BEDTIME cap 07/15/20 09/06/20 quetiapine 100 mg tablet 100 mg PO BID PRN tab 07/15/20 09/06/20 quetiapine 50 mg tablet 400 mg PO BEDTIME tab 07/15/20 09/06/20 Previous Rx's Medication Instructions Recorded divalproex 750 mg PO BEDTIME 30 Days #90 tab 06/17/20 nicotine 21 mg TRANSDERMAL DAILY #21 ea 06/17/20 buprenorphine 8 mg-naloxone 2 mg 2 film SUBLINGUAL DAILY 7 Days #14 09/13/20 sublingual film ea Allergies Allergy/AdvReac Type Severity Reaction Status Date / Time No Known Allergies Allergy Verified 07/15/20 13:35 [No Known Allergies*] Review of Systems Review of Systems: Yes all other systems are reviewed and are negative Constitutional: Constitutional: Reports as per HPI and Reports no additional constitutional complaints Eyes: Eyes: Reports as per HPI and Reports no additional eye complaints ENT: Reports system reviewed and no additional complaints, except as documented and Reports as per HPI Cardiovascular: Cardiovascular: Reports as per HPI and Reports no additional cardiovascular complaints Respiratory: Respiratory: Reports as per HPI and Reports no additional respiratory complaints Gastrointestinal: Gastrointestinal: Reports as per HPI and Reports no additional gastrointestinal complaints Genitourinary: Genitourinary: Reports no additional male genitourinary complaints and Reports as per HPI Musculoskeletal: Musculoskeletal: Reports no additional musculoskeletal complaints and Reports as per HPI Integumentary/Breasts: Skin/Breast: Reports system reviewed and no additional complaints, except as docu and Reports as per HPI Neurologic: Reports system reviewed and no additional complaints, except as documented and Reports as per HPI Psychiatric: Psychiatric: Reports no additional psychiatric complaints, Reports as per HPI and Reports depression [facility] Past Medical History Medical History Atypical bipolar disorder Chronic post-traumatic stress disorder (PTSD) Cocaine use disorder Opioid use disorder, moderate, in early remission, on maintenance therapy, dependence Social History Social History (System 06/14/20 @ 08:31 by Briana Horton) Household Members: None Housing: Homeless Alcohol intake: unknown Smoking Status: Current every day smoker Tobacco Type: Cigarette Packs Per Day: 2 Cigarettes Per Day: 40.0 Years Smoked: 10 years Second Hand Smoke Exposure: No Substance Use Type: Crack/Cocaine Advance Directives: No Advance Directives Information Provided: No service: No Sexual orientation: Straight/Heterosexual Physical Exam Vital Signs: Vital Signs: Last Vital Signs Temp 98.2 F 09/14/20 09:03 Pulse 78 09/14/20 09:03 Resp 12 09/14/20 09:03 BP 151/93 H 09/14/20 09:03 Pulse Ox 100 09/14/20 09:03 Body Mass Index 26.3 Const: General: cooperative, healthy appearing, comfortable, no acute distress, well developed, alert, awake and Physically active Orientation/consciousness: patient oriented x3 HENMT: Head: Yes normal to inspection, Yes No palpable skull fracture present, Yes normocephalic and Yes atraumatic Eyes: General: appearance normal, both eyes and all related structures Neck: Neck: Yes normal visual inspection, Yes full ROM, Yes no lymphadenopathy, Yes no meningeal signs, Yes trachea midline and Yes supple Chest: Chest palpation & inspection: normal inspection of the chest and normal palpation of entire chest wall Resp: Effort & Inspection: normal respiratory effort and able to speak in complete sentences Auscultation: clear to auscultation bilaterally Cardio: Jugular venous distension: no JVD Heart sounds: S1 normal heart sound present and S2 normal heart sound present GI: Inspection: Yes normal to inspection and No abdominal wall ecchymosis Palpation (GI): Soft to palpation, not firm, nontender, no guarding and not rigid : General: No CVA tenderness and Yes no CVA tenderness Back/Spine/Pelvis: Back: no CVA tenderness and No CVA tenderness Skin: General skin exam: no rashes or lesions noted and elasticity normal Neuro: General: patient oriented x3, no meningeal signs and CN's II-XI intact bilaterally Cranial nerves: Yes CN's II-XII intact bilaterally Extrem: General: Yes normal to inspection and Yes full ROM Psych: Appearance: grossly normal, well kempt and not disheveled Mental Status: mental status grossly normal Speech and movement: Normal speech and movement present Affect: normal affect Attitude: cooperative Thought process: Normal thought process present Thought content: Suicidality present Insight: Good insight present (Psych) Course Course Course Narrative: Patient had basic labs and if medically cleared will have crisis evaluation. Patient not in distress Reevaluation(s) Reevaluation #1: Pataient is medically cleared and awating [facility] evaluation. Case signed out MIRIAM Wilson Time: 17:57 Discharge Plan Discharge Prescriptions: No Action buprenorphine-naloxone [Suboxone] 8-2 mg film 2 film sublingual DAILY 7 Days Qty: 14 RF: 0 nicotine 21 mg/24 hr Patch 24 Hour 21 mg transdermal DAILY Qty: 21 RF: 0 divalproex 250 mg tablet extended release 24 hr 750 mg PO BEDTIME 30 Days Qty: 90 RF: 0 prazosin 1 mg capsule 3 mg PO BEDTIME RF: 0 quetiapine 50 mg tablet 400 mg PO BEDTIME RF: 0 quetiapine 100 mg tablet 100 mg PO BID PRNRF: 0
[2020-09-14 10:27] LABS: Basophils Percent Auto 0.6 % (0-2); Eosinophils Absolute Auto 0.1 X10*3/uL (0.0-0.4); Eosinophils Percent Auto 1.9 % (0-4); Hematocrit 43.2 % (42-52); Hemoglobin 14.3 g/dl (14.0-18.0); Imm Gran Abs Auto 0.02 X10*3/uL (0.00-0.03); Imm Gran Pct Auto 0.3 % (0.0-0.4); Lymphocytes Absolute Auto 1.2 X10*3/uL (1.2-4.9); Lymphocytes Percent Auto 16.8 % (20-40); Mean Corpuscular HGB Conc 33.1 g/dl (31.0-36.0); Mean Corpuscular Hemoglobin 30.6 pg (27.0-33.0); Mean Corpuscular Volume 92.3 fL (80-98); Mean Platelet Volume 10.2 fL (9.4-12.4); Monocytes Absolute Auto 0.6 X10*3/uL (0.1-1.2); Monocytes Percent Auto 8.1 % (2-11); Neutrophils Percent Auto 72.3 % (45-73); Platelet Count 222 X10*3/uL (160-400); Red Blood Count 4.68 X10*6/uL (4.60-5.80); Red Cell Distribution Width 13.4 % (11.0-16.0); White Blood Count 6.9 X10*3/uL (4.8-10.8)
[2020-09-14 10:54] LABS: Ethanol < 10 mg/dL
[2020-09-14 10:56] LABS: Alanine Aminotransferase 22 U/L (0-40); Albumin Level 3.8 g/dL (3.5-5.0); Alkaline Phosphatase 61 U/L (39-117); Anion Gap 13 (12-20); Aspartate Amino Transferase 21 U/L (5-37); Bilirubin Direct 0.3 mg/dL (0.0-0.5); Bilirubin Total 0.7 mg/dL (0.0-1.0); Blood Urea Nitrogen 19 mg/dL (9-16); Calcium 8.8 mg/dL (8.4-10.2); Carbon Dioxide 26 mmol/L (22-29); Chloride 105 mmol/L (96-108); Creatinine Clr Calc Pharmacy 105.9; Estimated Glomerular Filt Rate > 60; Glucose Random 102 mg/dL (60-115); Potassium 3.7 mmol/L (3.3-5.1); Sodium 140 mmol/L (135-145); Total Protein 6.6 g/dL (6.5-8.0)
--- NOTE | 2020-09-14 11:40 | PC.NURSE ---
faxed and called to [facility]
[2020-09-14 16:55] LABS: Amphetamine Screen Urine Not Detected (Not Detect); Barbiturates, Urine Not Detected (Not Detect); Benzodiazepines Screen Urine Not Detected (Not Detect); Cannabinoid Screen Urine Not Detected (Not Detect); Cocaine Screen Urine POSITIVE (Not Detect); Opiate Screen Urine Not Detected (Not Detect); Phencyclidine Screen Urine Not Detected (Not Detect)
--- NOTE | 2020-09-14 20:17 | PC.NURSE ---
Patient in bed resting quietly, was up briefly for bathroom use and back, no distress reported at this time, will continue to monitor.
[2020-09-14 21:27] LABS: COVID-19 Test Negative (Negative); IDNOW Serial# 9DD0AD1C
[2020-09-14 21:52] VITALS: BP 171/58; PULSE 64; RESP 20; TEMP 36.8; O2SAT 98
[2020-09-14 21:54] VITALS: BP 155/95; PULSE 99; RESP 20; TEMP 36.6; O2SAT 98
[2020-09-15 06:00] VITALS: BP 146/77; PULSE 69; RESP 16; TEMP 37.1; O2SAT 96
--- NOTE | 2020-09-15 06:56 | PC.NURSE ---
Report received. Pt currently sleeping, respirations even and unlabored, in no apparent distress. Pt to be re-evaluated this morning.
[2020-09-15 09:04] VITALS: BP 132/64; PULSE 51; RESP 15; TEMP 37; O2SAT 96
--- NOTE | 2020-09-15 13:51 | PC.NURSE ---
PT heard moaning in his room, sounds to be in pain, pt heard sneezing frequently, pt states he is detoxing from heroin, reports nausea, body aches and chills, requesting medication, provider notified.
[2020-09-15 14:00] VITALS: PULSE 77
[2020-09-15 14:08] VITALS: BP 149/96; PULSE 77; RESP 19; TEMP 37.1; O2SAT 99
[2020-09-15] MEDS: Buprenorphine/Naloxone 8/2 mg FILM 1 FILM SUBLINGUAL (14:47)
--- NOTE | 2020-09-15 15:24 | MHC.RECOVRN ---
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 Pt subsequently seen by Eve and is currently voluntary inpatient bedsearch.? T/w saw pt in ED [facility] to discuss substance use. Pt is connected to the [facility] and is currently prescribed Suboxone 8mg/2mg, 2 films daily. Last fill was 09/13/20 for a 7 day supply. Pt reports I haven't had any since last weekend when I lost my backpack. Pt would like to continue with [facility] and receive Suboxone at this time.? Pt reports IN heroin use, 2 bags daily, last use 09/14/20 prior to presentation to ED.? Pt currently reports chills, restlessness, body aches, n/v, anxiety, irritability. No tremor observed, prominent piloerection.? Case was discussed with RN as well as DISPLAY ASSOCIATE who will order Suboxone 8mg/2mg, one film now. Will continue to monitor.?
--- NOTE | 2020-09-15 18:57 | PC.NURSE ---
Report received. PT is sleeping in bed. Respirations are even and unlabored. PT is inpatient bed search.
[2020-09-15 20:37] VITALS: BP 160/92; PULSE 67; RESP 18; TEMP 36.6; O2SAT 97
--- NOTE | 2020-09-16 06:55 | PC.NURSE ---
Report received. PT currently sleeping, respirations even and unlabored, in no apparent distress, pt is inpatient bedsearch.
[2020-09-16 06:59] VITALS: BP 119/65; PULSE 65; RESP 17; TEMP 37.3; O2SAT 98
[2020-09-16 10:00] VITALS: BP 132/75; PULSE 63; RESP 16; TEMP 36.7; O2SAT 98
[2020-09-16] MEDS: Buprenorphine/Naloxone 8/2 mg FILM 1 FILM SUBLINGUAL (12:29)
--- NOTE | 2020-09-16 12:31 | PC.NURSE ---
[facility] at bedside
--- NOTE | 2020-09-16 13:50 | MHC.RECOVRN ---
Recovery Support Note: T/w met with pt to discuss dc plans after being made aware pt would like to dc today. Pt would like to obtain Sublocade but is unable to today at the [facility]. Pt will receive bridge script of Suboxone from Alix Mckeon CNP, to get pt through until appointment at [facility] on Saturday. Pt instructed to follow up with [facility] to continue care.
== END 2020-09-16 14:21 | disposition home or self-care (01) ==
PROVIDERS: Physician Assistant; Emergency Provider Emergency Medicine; PCP Family Medicine
DX: F11.20 Opioid dependence, uncomplicated (principal); F14.10 Cocaine abuse, uncomplicated; F32.9 Major depressive disorder, single episode, unspecified; R45.851 Suicidal ideations; Z59.0 Homelessness; F17.210 Nicotine dependence, cigarettes, uncomplicated; F43.12 Post-traumatic stress disorder, chronic; Z20.822 Contact with and (suspected) exposure to COVID-19
CPT/HCPCS: 36415; 80053; 80076; 80307; 80320; 82248; 85025; 87635; 99285

== ENCOUNTER → 2020-09-20 15:47 | Outpatient (BNVA) | payer MEDICAID, SELFPAY | PROVIDERS: Visit Provider Internal Medicine | DX: Z51.81 Encounter for therapeutic drug level monitoring (principal) | CPT/HCPCS: 80305; 99211 ==

== ENCOUNTER → 2020-10-07 14:46 | Outpatient (BNVA) | payer MEDICAID, SELFPAY | PROVIDERS: Visit Provider Internal Medicine | DX: F11.99 Opioid use, unspecified with unspecified opioid-induced disorder (principal); Z79.899 Other long term (current) drug therapy | CPT/HCPCS: 80305; 99211 ==

== ENCOUNTER 2021-04-25 22:05 | Emergency (ER) | payer MEDICAID, SELFPAY ==
[2021-04-25 22:11] VITALS: BP 128/76; PULSE 97; RESP 16; TEMP 36.9; O2SAT 96; BMI 26.6
[2021-04-25] MEDS: LORazepam 1 MG TABLET 2 MG PO (23:00)
--- NOTE | 2021-04-25 23:03 | ED.PSYCH ---
HPI - Psych General Chief Complaint: Psychiatric Symptoms Stated Complaint: psych eval Time Seen by Provider: 04/25/21 22:55 Source: patient Mode of arrival: ambulatory Limitations: no limitations History of Present Illness HPI Narrative: Patient history of bipolar disorder history of heroin abuse which he been using for longtime not taking his medication for last 1 year having racing thoughts with suicidal ideation often asking for somehow wants to quit heroin. Related Data Home Medications Medication Instructions Recorded Confirmed prazosin 1 mg capsule 3 mg PO BEDTIME cap 07/15/20 10/07/20 quetiapine 100 mg tablet 100 mg PO BID PRN tab 07/15/20 10/07/20 quetiapine 50 mg tablet 400 mg PO BEDTIME tab 07/15/20 10/07/20 Previous Rx's Medication Instructions Recorded divalproex 250 mg tablet,extended 750 mg PO BEDTIME 30 Days #90 tab 06/17/20 release 24 hr nicotine 21 mg/24 hr daily 21 mg TRANSDERMAL DAILY #21 ea 06/17/20 transdermal patch buprenorphine 8 mg-naloxone 2 mg 2 film SUBLINGUAL DAILY 3 Days #6 10/07/20 sublingual film (Suboxone) ea Allergies Allergy/AdvReac Type Severity Reaction Status Date / Time No Known Allergies Allergy Verified 10/07/20 15:28 [No Known Allergies*] Review of Systems Review of Systems: Constitutional : No Fever, No Chills ENT/Mouth : No Ear Pain, No Nasal Congestion, No sore throat Eyes: No Eye Pain, No Swelling, No Redness Cardiovascular : No Chest Pain, No SOB Respiratory : No Cough, No Sputum, No Dyspnea Gastrointestinal : No Nausea, No Vomiting, No Diarrhea, No Hematochezia, No Melena Genitourinary : No Dysuria, No Urinary Frequency, No Hematuria Musculoskeletal : No Myalgias Skin : No Skin Lesions, No rash Neuro : No Weakness, No Numbness, No Paresthesias, No Dizziness, No Headache Psych : positive Anxiety, positive Depression, positive SI Heme/Lymph: No Lymphadenopathy Endocrine : No Polyuria, No Polydipsia PMFSH Past Medical History Medical History Atypical bipolar disorder Chronic post-traumatic stress disorder (PTSD) Cocaine use disorder Opioid use disorder, moderate, in early remission, on maintenance therapy, dependence Social History Social History Household Members: None Housing: Homeless Housing Other:: pt plans on living with his sister after D/C Do you presently have visiting nurse or other home services: No Alcohol intake: unknown Cigarette Packs Per Day: 2 Cigarettes Per Day: 40.0 Years Smoked: 10 years Second Hand Smoke Exposure: No Substance Use Type: Crack/Cocaine Advance Directives: No Advance Directives Information Provided: Yes service: No Sexual orientation: Straight/Heterosexual Physical Exam Vital Signs: Vital Signs: Last Vital Signs Temp 98.4 F 04/25/21 22:11 Pulse 72 04/26/21 01:10 Resp 16 04/26/21 01:10 BP 138/89 04/26/21 01:10 Pulse Ox 97 04/26/21 01:10 Body Mass Index 26.6 Appearance: Alert. Oriented X3. No acute distress. Eyes: PERRLA, No Nystagmus ENT: Pharynx normal. Oral Mucosa moist Neck: Normal inspection. Neck supple. CVS: Normal heart rate and rhythm. Pulses normal. Respiratory: No respiratory distress. Equal air entry bilateral, no wheezing/rales/rhonchi Abdomen: Soft and nontender. Bowel sounds are present, no mass palpable, no CVA tenderness Skin: Skin warm and dry. Normal skin color. Normal skin turgor. Extremities: No lower extremity edema. No calf tenderness Psych: Mood stable this time no hallucination or delusions thought process no there is any suicidal ideation or homicidal ideation Neuro: Oriented X 3. No motor deficit. No sensory deficit.No cerebellar signs , cranial nerves II-XII intact MDM - Psych MDM Narrative Medical decision making narrative: Patient's heroin abuse with bipolar disorder will be seen by crisis disposition according to their decision Differential Diagnosis Differential diagnosis: Likely bipolar disorder Medical Records Attestation: I reviewed the patient's medical records. Lab Data Result diagrams: 04/26/21 00:38 04/26/21 00:38 Labs: Lab Results 04/25/21 04/25/21 04/25/21 Range/Units 22:42 22:42 22:42 WBC (4.8-10.8) X10*3/uL RBC (4.60-5.80) X10*6/uL Hgb (14.0-18.0) g/dl Hct (42-52) % MCV (80-98) fL MCH (27.0-33.0) pg MCHC (31.0-36.0) g/dl RDW (11.0-16.0) % Plt Count (160-400) X10*3/uL MPV (9.4-12.4) fL Immature Gran % (Auto) (0.0-0.4) % Neut % (Auto) (45-73) % Lymph % (Auto) (20-40) % [place] % (Auto) (2-11) % Eos % (Auto) (0-4) % Baso % (Auto) (0-2) % Lymph # (Auto) (1.2-4.9) X10*3/uL [place] # (Auto) (0.1-1.2) X10*3/uL Eos # (Auto) (0.0-0.4) X10*3/uL Baso # (Auto) (0.0-0.2) X10*3/uL Abs Immat Gran (auto) (0.00-0.03) X10*3/uL Absolute Neuts (auto) (2.0-8.3) X10*3/uL Absolute Nucleated RBC (0.0-0.012) X10*3/uL Nucleated RBC % (auto) (0.0-0.2) /100WBC Sodium (135-145) mmol/L Potassium (3.3-5.1) mmol/L Chloride (96-108) mmol/L Carbon Dioxide (22-29) mmol/L Anion Gap (12-20) BUN (9-16) mg/dL Creatinine (0.5-1.4) mg/dL Estim Creat Clear Calc Estimated GFR Random Glucose (60-115) mg/dL Calcium (8.4-10.2) mg/dL Total Bilirubin (0.0-1.0) mg/dL Direct Bilirubin (0.0-0.5) mg/dL AST (5-37) U/L ALT (0-40) U/L Alkaline Phosphatase (39-117) U/L Total Protein (6.5-8.0) g/dL Albumin (3.5-5.0) g/dL Urine Color YELLOW Urine Appearance CLEAR Urine pH 6.0 (5.0-8.0) Ur Specific [place] >= 1.030 H (1.005-1.025) Urine Protein NEG (NEG-TRACE) MG/DL Urine Glucose (UA) NEG (NEG) MG/DL Urine Ketones 5 (NEG) MG/DL Urine Blood 2+ H (NEG) Urine Nitrite NEG (NEG) Ur Leukocyte Esterase NEG (NEG) Urine RBC 15-29 H (0) /HPF Urine WBC 1-4 (0-4) /HPF Ur Squamous Epith Cells 1+ /LPF Calcium Oxalate Crystal 1+ /LPF Urine Bacteria 1+ /LPF Urine Opiates Screen POSITIVE H (Not Detect) Urine Fentanyl Screen POSITIVE H (Not Detect) Ur Barbiturates Screen Not Detected (Not Detect) Valproic Acid (50.0-100.0) mcg/mL Ur Phencyclidine Scrn Not Detected (Not Detect) Ur Amphetamines Screen Not Detected (Not Detect) U Benzodiazepines Scrn Not Detected (Not Detect) Urine Cocaine Screen POSITIVE H (Not Detect) U Marijuana (THC) Screen Not Detected (Not Detect) Ethyl Alcohol mg/dL COVID-19 ([place]) Negative (Negative) COVID-19 Clin Com See Note 04/26/21 04/26/21 04/26/21 Range/Units 00:38 00:38 00:38 WBC (4.8-10.8) X10*3/uL RBC (4.60-5.80) X10*6/uL Hgb (14.0-18.0) g/dl Hct (42-52) % MCV (80-98) fL MCH (27.0-33.0) pg MCHC (31.0-36.0) g/dl RDW (11.0-16.0) % Plt Count (160-400) X10*3/uL MPV (9.4-12.4) fL Immature Gran % (Auto) (0.0-0.4) % Neut % (Auto) (45-73) % Lymph % (Auto) (20-40) % [place] % (Auto) (2-11) % Eos % (Auto) (0-4) % Baso % (Auto) (0-2) % Lymph # (Auto) (1.2-4.9) X10*3/uL [place] # (Auto) (0.1-1.2) X10*3/uL Eos # (Auto) (0.0-0.4) X10*3/uL Baso # (Auto) (0.0-0.2) X10*3/uL Abs Immat Gran (auto) (0.00-0.03) X10*3/uL Absolute Neuts (auto) (2.0-8.3) X10*3/uL Absolute Nucleated RBC (0.0-0.012) X10*3/uL Nucleated RBC % (auto) (0.0-0.2) /100WBC Sodium (135-145) mmol/L Potassium (3.3-5.1) mmol/L Chloride (96-108) mmol/L Carbon Dioxide (22-29) mmol/L Anion Gap (12-20) BUN (9-16) mg/dL Creatinine (0.5-1.4) mg/dL Estim Creat Clear Calc Estimated GFR Random Glucose (60-115) mg/dL Calcium (8.4-10.2) mg/dL Total Bilirubin (0.0-1.0) mg/dL Direct Bilirubin (0.0-0.5) mg/dL AST (5-37) U/L ALT (0-40) U/L Alkaline Phosphatase (39-117) U/L Total Protein (6.5-8.0) g/dL Albumin (3.5-5.0) g/dL Urine Color Urine Appearance Urine pH (5.0-8.0) Ur Specific [place] (1.005-1.025) Urine Protein (NEG-TRACE) MG/DL Urine Glucose (UA) (NEG) MG/DL Urine Ketones (NEG) MG/DL Urine Blood (NEG) Urine Nitrite (NEG) Ur Leukocyte Esterase (NEG) Urine RBC (0) /HPF Urine WBC (0-4) /HPF Ur Squamous Epith Cells /LPF Calcium Oxalate Crystal /LPF Urine Bacteria /LPF Urine Opiates Screen (Not Detect) Urine Fentanyl Screen (Not Detect) Ur Barbiturates Screen (Not Detect) Valproic Acid (50.0-100.0) mcg/mL Ur Phencyclidine Scrn (Not Detect) Ur Amphetamines Screen (Not Detect) U Benzodiazepines Scrn (Not Detect) Urine Cocaine Screen (Not Detect) U Marijuana (THC) Screen (Not Detect) Ethyl Alcohol mg/dL COVID-19 ([place]) (Negative) COVID-19 Clin Com 04/26/21 Range/Units 00:38 WBC (4.8-10.8) X10*3/uL RBC (4.60-5.80) X10*6/uL Hgb (14.0-18.0) g/dl Hct (42-52) % MCV (80-98) fL MCH (27.0-33.0) pg MCHC (31.0-36.0) g/dl RDW (11.0-16.0) % Plt Count (160-400) X10*3/uL MPV (9.4-12.4) fL Immature Gran % (Auto) (0.0-0.4) % Neut % (Auto) (45-73) % Lymph % (Auto) (20-40) % [place] % (Auto) (2-11) % Eos % (Auto) (0-4) % Baso % (Auto) (0-2) % Lymph # (Auto) (1.2-4.9) X10*3/uL [place] # (Auto) (0.1-1.2) X10*3/uL Eos # (Auto) (0.0-0.4) X10*3/uL Baso # (Auto) (0.0-0.2) X10*3/uL Abs Immat Gran (auto) (0.00-0.03) X10*3/uL Absolute Neuts (auto) (2.0-8.3) X10*3/uL Absolute Nucleated RBC (0.0-0.012) X10*3/uL Nucleated RBC % (auto) (0.0-0.2) /100WBC Sodium (135-145) mmol/L Potassium (3.3-5.1) mmol/L Chloride (96-108) mmol/L Carbon Dioxide (22-29) mmol/L Anion Gap (12-20) BUN (9-16) mg/dL Creatinine (0.5-1.4) mg/dL Estim Creat Clear Calc Estimated GFR Random Glucose (60-115) mg/dL Calcium (8.4-10.2) mg/dL Total Bilirubin (0.0-1.0) mg/dL Direct Bilirubin (0.0-0.5) mg/dL AST (5-37) U/L ALT (0-40) U/L Alkaline Phosphatase (39-117) U/L Total Protein (6.5-8.0) g/dL Albumin (3.5-5.0) g/dL Urine Color Urine Appearance Urine pH (5.0-8.0) Ur Specific [place] (1.005-1.025) Urine Protein (NEG-TRACE) MG/DL Urine Glucose (UA) (NEG) MG/DL Urine Ketones (NEG) MG/DL Urine Blood (NEG) Urine Nitrite (NEG) Ur Leukocyte Esterase (NEG) Urine RBC (0) /HPF Urine WBC (0-4) /HPF Ur Squamous Epith Cells /LPF Calcium Oxalate Crystal /LPF Urine Bacteria /LPF Urine Opiates Screen (Not Detect) Urine Fentanyl Screen (Not Detect) Ur Barbiturates Screen (Not Detect) Valproic Acid (50.0-100.0) mcg/mL Ur Phencyclidine Scrn (Not Detect) Ur Amphetamines Screen (Not Detect) U Benzodiazepines Scrn (Not Detect) Urine Cocaine Screen (Not Detect) U Marijuana (THC) Screen (Not Detect) Ethyl Alcohol mg/dL COVID-19 ([place]) (Negative) COVID-19 Clin Com Discharge Plan Discharge Clinical Impression: Opiate abuse, continuous Bipolar disorder Qualifiers: Active/Remission status: currently active Current bipolar episode type: manic Current episode severity: severe Psychotic features: without psychotic features Qualified Code(s): F31.13 - Bipolar disorder, current episode manic without psychotic features, severe Prescriptions: No Action buprenorphine-naloxone [Suboxone] 8-2 mg film 2 film sublingual DAILY 3 Days Qty: 6 RF: 0 nicotine 21 mg/24 hr Patch 24 Hour 21 mg transdermal DAILY Qty: 21 RF: 0 divalproex 250 mg tablet extended release 24 hr 750 mg PO BEDTIME 30 Days Qty: 90 RF: 0 prazosin 1 mg capsule 3 mg PO BEDTIME RF: 0 quetiapine 50 mg tablet 400 mg PO BEDTIME RF: 0 quetiapine 100 mg tablet 100 mg PO BID PRNRF: 0
[2021-04-25 23:17] LABS: Appearance Urine CLEAR; Color Urine YELLOW; Glucose Urine UA NEG (NEG); Leukocyte Esterase Urine NEG (NEG); Nitrite Urine NEG (NEG); Specific Gravity - Urine >= 1.030 (1.005-1.025); UACC Culture Trigger NO; Urine Blood 2+ (NEG); Urine Ketones 5 MG/DL (NEG); Urine Protein NEG (NEG-TRACE)
[2021-04-25 23:27] LABS: Bacteria Urine 1+ /LPF; Squamous Epithelial Cell Urine 1+ /LPF
[2021-04-25 23:28] LABS: Calcium Oxalate Crystals Urine 1+ /LPF
[2021-04-25 23:31] LABS: COVID-19 Test Negative (Negative)
[2021-04-25 23:43] LABS: Amphetamine Screen Urine Not Detected (Not Detect); Barbiturates, Urine Not Detected (Not Detect); Benzodiazepines Screen Urine Not Detected (Not Detect); Cannabinoid Screen Urine Not Detected (Not Detect); Cocaine Screen Urine POSITIVE (Not Detect); Fentanyl, urine POSITIVE (Not Detect); Opiate Screen Urine POSITIVE (Not Detect); Phencyclidine Screen Urine Not Detected (Not Detect)
[2021-04-26 01:10] VITALS: BP 138/89; PULSE 72; RESP 16; O2SAT 97
--- NOTE | 2021-04-26 06:10 | PC.NURSE ---
Patient slept through the night, no distress observed/reported, lab redraw unsuccessful patient not compliant, [facility] referral completed/confirmed patient will be evaluated in the morning, patient is not on any medication currently, behavior non concerning at this time, VSS, will continue to monitor
[2021-04-26 08:22] VITALS: RESP 20
[2021-04-26 14:00] VITALS: RESP 18; O2SAT 100
--- NOTE | 2021-04-26 14:35 | MHC.RECOVRN ---
T/w met with pt in [facility] after CARE Team spoke with pt and decided ATS was an appropriate level of care. Upon entering pts room, pt sitting up, eating lunch. Pt reports using heroin, IN, 2 bundles daily; cocaine, INH, not much, and alcohol, approx 12 beers, daily. Pt reports last use of all substances was last night. T/w will conduct ATS bedsearch. CARE Team aware.
[2021-04-26 15:04] LABS: Hematocrit 44.8 % (42-52); Hemoglobin 14.9 g/dl (14.0-18.0); Mean Corpuscular HGB Conc 33.3 g/dl (31.0-36.0); Mean Corpuscular Hemoglobin 29.7 pg (27.0-33.0); Mean Corpuscular Volume 89.2 fL (80-98); Platelet Count 229 X10*3/uL (160-400); Red Blood Count 5.02 X10*6/uL (4.60-5.80); Red Cell Distribution Width 12.2 % (11.0-16.0); White Blood Count 5.9 X10*3/uL (4.8-10.8)
[2021-04-26 15:18] LABS: Ethanol < 10 mg/dL
[2021-04-26 15:22] LABS: Alanine Aminotransferase 18 U/L (0-40); Albumin Level 3.8 g/dL (3.5-5.0); Alkaline Phosphatase 66 U/L (39-117); Anion Gap 10 (12-20); Aspartate Amino Transferase 14 U/L (5-37); Bilirubin Direct 0.3 mg/dL (0.0-0.5); Bilirubin Total 0.7 mg/dL (0.0-1.0); Blood Urea Nitrogen 16 mg/dL (9-16); Calcium 9.7 mg/dL (8.4-10.2); Carbon Dioxide 27 mmol/L (22-29); Chloride 106 mmol/L (96-108); Creatinine Clr Calc Pharmacy 91.8; Estimated Glomerular Filt Rate > 60; Glucose Fasting 119 mg/dL (60-99); Potassium 4.2 mmol/L (3.3-5.1); Sodium 139 mmol/L (135-145); Total Protein 6.6 g/dL (6.5-8.0)
[2021-04-26 15:25] LABS: Valproate < 2.0 mcg/mL (50.0-100.0)
--- NOTE | 2021-04-26 15:38 | MHC.RECOVRN ---
Bedsearch exhausted, unable to secure an ATS bed. CARE Team aware.
[2021-04-26 20:40] VITALS: PULSE 61
[2021-04-26] MEDS: LORazepam 1 MG TABLET 2 MG PO (20:51)
[2021-04-27 06:04] VITALS: BP 158/84; PULSE 61; RESP 18; TEMP 36.7; O2SAT 98
[2021-04-27 06:05] VITALS: PULSE 61
--- NOTE | 2021-04-27 06:38 | PC.NURSE ---
Patient is symptomatic of withdrawal, scored 10 on COW at this time, provider notified, pending order, patient's disposition section 12 EATS bed search per care team, behavior appropriate mostly isolate himself in his room, VSS, will continue to monitor.
[2021-04-27] MEDS: LORazepam 1 MG TABLET 2 MG PO (06:56)
--- NOTE | 2021-04-27 07:10 | PC.NURSE ---
patient appears to remain asleep at present, respirations even and unlabored, patient appears in no distress.
--- NOTE | 2021-04-27 09:47 | MHC.RECOVSUP ---
Recovery Support note: This conventional mortgage underwriter continued the [facility] bedsearch that was initiated on 04/26. A male bed was located at [facility] in [place]. Patient declined the bed, indicating that he does not want to go far for treatment. This conventional mortgage underwriter explained that a local bed may not be available and that he cannot remain in the emergency room waiting on one. Patient acknowledged. Patient information is currently being reviewed by [facility] staff for a possible admission to [facility] or [facility].
[2021-04-27] MEDS: Buprenorphine/Naloxone 2/0.5mg FILM 1 FILM SUBLINGUAL (13:46)
== END 2021-04-27 14:09 ==
PROVIDERS: Emergency Provider Internal Medicine
DX: F31.13 Bipolar disorder, current episode manic without psychotic features, severe (principal); F11.13 Opioid abuse with withdrawal; Z71.51 Drug abuse counseling and surveillance of drug abuser; Z20.822 Contact with and (suspected) exposure to COVID-19; F17.210 Nicotine dependence, cigarettes, uncomplicated; Z71.6 Tobacco abuse counseling; Z79.899 Other long term (current) drug therapy
CPT/HCPCS: 36415; 80048; 80076; 80164; 80307; 81001; 82077; 85025; 85027; 87635; 99284; 99285

== ENCOUNTER 2021-07-28 01:35 | Emergency (ER) | payer MEDICAID, SELFPAY ==
--- NOTE | ~2021-07-28 | XR_ITS ---
EXAMINATION: XR KNEE, RIGHT CLINICAL INFORMATION: Pain COMPARISON: None TECHNIQUE: Four views of the right knee. FINDINGS: No fracture or subluxation. Compartmental joint spaces are maintained. There is a small joint effusion. Small enthesophytes of the patella. The soft tissues are otherwise unremarkable. XR/XR knee RT 4V IMPRESSION: Small joint effusion. No significant arthritic change.
--- NOTE | ~2021-07-28 | XR_ITS ---
EXAMINATION: XR FOOT, LEFT CLINICAL INFORMATION: Pain and swelling COMPARISON: None TECHNIQUE: AP, lateral, and oblique views of the left foot. FINDINGS: No fracture or dislocation. Alignment is anatomic. Mild degenerative change of the first metatarsophalangeal joint with osteophyte formation. Mild soft tissue swelling of the forefoot. XR/XR foot LT min 3V IMPRESSION: Mild soft tissue swelling without acute osseous abnormality. Mild degenerative change of the first metatarsophalangeal joint.
[2021-07-28 01:49] VITALS: BP 129/75; BP 148/84; PULSE 89; PULSE 95; RESP 18; TEMP 37.2; O2SAT 98; BMI 25.7
[2021-07-28 03:45] VITALS: BP 144/79; PULSE 78; RESP 16; TEMP 36.7; O2SAT 100
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
[2021-07-28] MEDS: Ibuprofen 400 MG TABLET PO (05:42)
[2021-07-28] MEDS: Acetaminophen 325 MG TABLET 975 MG PO (05:42)
[2021-07-28 07:12] VITALS: RESP 12
== END 2021-07-28 08:12 | disposition home or self-care (01) ==
PROVIDERS: Emergency Provider Student in an Organized Health Care Education/Training Program
DX: M25.561 Pain in right knee (principal); M79.672 Pain in left foot; F11.21 Opioid dependence, in remission; F14.10 Cocaine abuse, uncomplicated; F43.12 Post-traumatic stress disorder, chronic
CPT/HCPCS: 73564; 73630; 99283; 99284

== ENCOUNTER 2021-08-27 00:43 | Inpatient (IN) | payer MEDICAID, SELFPAY ==
[2021-08-27] VITALS (8 sets, daily range): BP systolic 106–160; BP diastolic 70–95; PULSE 88–110; RESP 14–18; TEMP 36.7–37.1; O2SAT 96–99; BMI 26.1
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
[2021-08-27 02:38] LABS: COVID-19 Test Negative (Negative); IDNOW Serial# 9DD0AD1C
[2021-08-27] MEDS: LORazepam 1 MG TABLET 2 MG PO (02:46)
[2021-08-27 03:19] LABS: Amphetamine Screen Urine Not Detected (Not Detect); Barbiturates, Urine Not Detected (Not Detect); Benzodiazepines Screen Urine Not Detected (Not Detect); Cannabinoid Screen Urine Not Detected (Not Detect); Cocaine Screen Urine POSITIVE (Not Detect); Fentanyl, urine POSITIVE (Not Detect); Opiate Screen Urine POSITIVE (Not Detect); Phencyclidine Screen Urine Not Detected (Not Detect)
--- NOTE | 2021-08-27 08:58 | PC.NURSE ---
bhn at bedside, pt aware of plan of care.
--- NOTE | 2021-08-27 10:19 | PHA.MEDREC ---
Pharmacy Consult ? Medication Reconciliation Pharmacy has completed the medication reconciliation. Spoke with patient in ED. Pt has not taken his medications in a few days. Pt fills all medications at [facility]
--- NOTE | 2021-08-27 11:55 | MHC.CARE ---
Spoke with Gabbie Edwards LCSW. She reported that she sent the assessment over to [facility], and they felt that pt. needed a higher level of care. Gabbie stated that someone will be out to see patient for a 24 Hour Reevalaition
--- NOTE | 2021-08-27 19:15 | MHC.RECOVSUP ---
? Reason for consult Recovery Support.. o Current location: ED13 o Identified substance use concern: Heroin <del>-</del> <del>Overdose</del> <del>-</del> <del>Withdrawal</del> - Seeking ATS (detox) - Support ? Intervention: <del>o</del> <del>ATS</del> <del>bed</del> <del>search</del> <del>started/completed/in</del> <del>process</del> o <del>MAT</del> <del>started</del> <del>or</del> <del>to</del> <del>be</del> <del>started</del> o Community resources provided o Harm reduction discussion ? Plan: <del>o</del> <del>Referral</del> <del>to</del> <del>[facility]</del> <del>o</del> <del>Bed</del> <del>search</del> <del>in</del> <del>progress</del> <del>to</del> o Follow up tomorrow o Patient awaiting crisis evaluation o Patient to follow up with [facility] after discharge ? Additional information: Patient stated that he needs help for his mental and his using.. Patient stated that he would like to first get his mental right and then go to a long-term program outside of [facility]. Patient is waiting on a Crisis eval.
--- NOTE | 2021-08-28 | ECG_ITS ---
Test Reason : medclearance Blood Pressure : / mmHG Vent. Rate : 102 BPM Atrial Rate : 102 BPM P-R Int : 136 ms QRS Dur : 082 ms QT Int : 342 ms P-R-T Axes : 077 075 052 degrees QTc Int : 445 ms Sinus tachycardia Otherwise normal ECG When compared with ECG of 11-JUN-2020 01:09, No significant change was found Referred By: Rodrigo Thompson Electronically Signed By:MADELIEN GARCIA MD
--- NOTE | 2021-08-28 02:28 | PC.NURSE ---
Patient has slept all day got here at 3pm. Patient has eaten and has sitter at bedside for SI. Will continue to monitor.
[2021-08-28 02:29] VITALS: BP 130/88; PULSE 82; RESP 16; TEMP 36.6; O2SAT 98
[2021-08-28 08:02] VITALS: BP 124/66; PULSE 100; RESP 18; O2SAT 97
[2021-08-28] MEDS: Nicotine 21 MG PATCH.TD24 TRANSDERMA (08:06)
[2021-08-28] MEDS: Buprenorphine/Naloxone 8/2 mg FILM 1 FILM SUBLINGUAL (08:06)
--- NOTE | 2021-08-28 08:10 | PC.NURSE ---
pt alert and oriented, skin appropriate for ethnicity, respirations even and unlabored, pt reports right knee pain that is chronic pain 03/14. pt is calm and cooperative, states that he would hurt himself he had to go back out to the streets, that the drugs would kill him pt is awaiting [facility] re-evaluation
--- NOTE | 2021-08-28 10:37 | PC.NURSE ---
bhn at bedside
[2021-08-28 11:07] VITALS: BP 120/70; PULSE 97; RESP 18; TEMP 36.9; O2SAT 97
[2021-08-28] MEDS: Acetaminophen 325 MG TABLET 650 MG PO ×2 (11:46→22:23)
--- NOTE | 2021-08-28 11:47 | PC.NURSE ---
pt medicated with Tylenol for his knee pain plan for pt to go to [facility] at some point today sitter in place
[2021-08-28 14:34] VITALS: BP 121/81; PULSE 95; RESP 18; O2SAT 99
--- NOTE | 2021-08-28 14:35 | PC.NURSE ---
pt reports feeling a little better after the tylenol pain at 5/10
[2021-08-28] MEDS: Buprenorphine/Naloxone 2/0.5mg FILM 1 FILM SUBLINGUAL (17:25)
[2021-08-28 18:34] LABS: MANUAL DIFF FLAG NO
[2021-08-28 18:36] LABS: Basophils Percent Auto 0.3 % (0-2); Eosinophils Absolute Auto 0.3 X10*3/uL (0.0-0.4); Eosinophils Percent Auto 2.6 % (0-4); Hematocrit 42.7 % (42.0-52.0); Hemoglobin 13.8 g/dl (14.0-18.0); Imm Gran Abs Auto 0.03 X10*3/uL (0.00-0.03); Imm Gran Pct Auto 0.3 % (0.0-0.4); Lymphocytes Absolute Auto 1.9 X10*3/uL (1.2-4.9); Lymphocytes Percent Auto 19.6 % (20-40); Mean Corpuscular HGB Conc 32.3 g/dl (31.0-36.0); Mean Corpuscular Hemoglobin 29.9 pg (27.0-33.0); Mean Corpuscular Volume 92.4 fL (80.0-98.0); Mean Platelet Volume 9.6 fL (9.4-12.4); Monocytes Percent Auto 9.8 % (2-11); Neutrophils Absolute Auto 6.5 x10*3/uL (2.0-8.3); Neutrophils Percent Auto 67.4 % (45-73); Platelet Count 269 X10*3/uL (160-400); Red Blood Count 4.62 X10*6/uL (4.60-5.80); Red Cell Distribution Width 13.1 % (11.0-16.0); White Blood Count 9.7 X10*3/uL (4.8-10.8)
[2021-08-28 18:50] LABS: Alanine Aminotransferase 21 U/L (0-40); Albumin Level 3.6 g/dL (3.5-5.0); Alkaline Phosphatase 76 U/L (39-117); Anion Gap 13 (12-20); Aspartate Amino Transferase 14 U/L (5-37); Bilirubin Total 0.3 mg/dL (0.0-1.0); Blood Urea Nitrogen 23 mg/dL (9-16); Calcium 9.4 mg/dL (8.4-10.2); Carbon Dioxide 28 mmol/L (22-29); Chloride 105 mmol/L (96-108); Creatinine Clr Calc Pharmacy 73.6; Estimated Glomerular Filt Rate > 60; Glucose Random 118 mg/dL (60-115); Potassium 4.2 mmol/L (3.3-5.1); Sodium 142 mmol/L (135-145); Total Protein 6.8 g/dL (6.5-8.0)
[2021-08-28] MEDS: hydrOXYzine HCL 50 MG TABLET PO (22:23)
[2021-08-28] MEDS: OLANZapine 10 MG TABLET PO (22:23)
[2021-08-28] MEDS: traZODone HCL 50 MG TABLET PO (22:23)
[2021-08-28] MEDS: Prazosin HCL 1 MG CAPSULE 4 MG PO (22:24)
--- NOTE | 2021-08-29 01:33 | PC.NURSE ---
Cornell is a 56 year old male, being admitted for SI ideation, PTSD, and substance abuse. Pt is alert and oriented x4. Cornell is on CV and 15 min checks. Mood and affect appropriate for situation. Cornell states that he has not been taking his medications, and that he has been using recreational drugs, which has made him feel hopeless. Cornell has a history of childhood trauma which he will not talk about with this nurse. Cornell is hoping to find placement at a rehab center to combat his drug addiction which makes him feel helpless.
[2021-08-29 08:00] VITALS: BP 128/70; PULSE 90; RESP 16; TEMP 36.6; O2SAT 99
[2021-08-29 08:08] LABS: Cholesterol 166 mg/dL; HDL Cholesterol 48 mg/dL; LDL Cholesterol Calculated 107 mg/dl; Magnesium 2.1 mg/dL (1.6-2.6); Triglycerides 59 mg/dL
[2021-08-29 08:32] LABS: Free T4 (Free Thyroxine) 1.01 ng/dL (0.71-1.85)
[2021-08-29 08:45] LABS: Estimated Average Glucose 105 mg/dL; Hemoglobin A1c % 5.3 %
[2021-08-29] MEDS: Buprenorphine/Naloxone 8/2 mg FILM 1 FILM SUBLINGUAL (09:01)
[2021-08-29] MEDS: Nicotine 21 MG PATCH.TD24 TRANSDERMA (09:01)
[2021-08-29 09:10] LABS: Folate 17.3 ng/mL (> or = 4.0); Vitamin B12 180 pg/mL (200-900)
[2021-08-29] MEDS: Acetaminophen 325 MG TABLET 650 MG PO ×2 (10:55→17:28)
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
[2021-08-29] MEDS: LORazepam 1 MG TABLET PO (14:08)
[2021-08-29] MEDS: Folic Acid 1 MG TABLET PO (14:08)
[2021-08-29] MEDS: Cyanocobalamin (Vitamin B-12) 1,000 MCG TABLET 1000 MCG PO (14:08)
[2021-08-29] MEDS: Multivitamin TABLET 1 TAB PO (14:08)
[2021-08-29] MEDS: Buprenorphine/Naloxone 2/0.5mg FILM 1 FILM SUBLINGUAL ×2 (17:28→17:29)
[2021-08-29 18:00] VITALS: BP 116/76; PULSE 92; RESP 14; TEMP 36.7; O2SAT 97
[2021-08-29] MEDS: OLANZapine 10 MG TABLET PO (21:08)
[2021-08-29] MEDS: Prazosin HCL 1 MG CAPSULE 4 MG PO (21:08)
[2021-08-30] MEDS: Buprenorphine/Naloxone 8/2 mg FILM 1 FILM SUBLINGUAL (08:22)
[2021-08-30] MEDS: hydrOXYzine HCL 50 MG TABLET PO (08:22)
[2021-08-30] MEDS: Folic Acid 1 MG TABLET PO (08:22)
[2021-08-30] MEDS: Nicotine 21 MG PATCH.TD24 TRANSDERMA (08:22)
[2021-08-30] MEDS: Multivitamin TABLET 1 TAB PO (08:22)
[2021-08-30] MEDS: Cyanocobalamin (Vitamin B-12) 1,000 MCG TABLET 1000 MCG PO (08:22)
[2021-08-30] MEDS: Acetaminophen 325 MG TABLET 650 MG PO ×2 (08:25→21:50)
[2021-08-30 08:27] VITALS: BP 119/73; PULSE 84; RESP 16; TEMP 36.8; O2SAT 98
--- NOTE | 2021-08-30 13:31 | P.PNPSI_ITS ---
Subjective Subjective Date of Service: 08/30/21 Reason For Visit: Crisis Interim History: pt reports having cold sweats and not sleeping well. he believes he is in relative withdrawal due to his suboxone dosing's having been messed up at [facility]. he has only been getting 8 in the morning and 2 in the evening and states he had actually been prescribed 12 in the morning and 8 in the evening prior to entering the hospital. meds adjusted accordingly. states his mood is so-so and that the SI occurs here and there. agreeable to increase prazosin to 5 mg at bedtime for nightmares. per staff, received a cane from PT. pharmacy contacted later in the day ([facility] [address], last picked up week's supply 08/25) and informed MD pt is actually prescribed suboxone 8 mg in the morning and 4 mg in the evening. meds adjusted accordingly. per staff, c/o AH and SI yesterday. eves c/o AH, anxiety, denied SI. slept well. awaiting placement at [facility]. Mental Status Exam Mental Status Exam Narrative: dressed in hospital attire, adequately groomed. cooperative. general PMR. speech soft, decr amount. nml rate and latency. flattened prosody. thoughts linear and logical. affect constricted. mood so-so. SI here and there. no HI/AVH expressed. Diagnostics Vital Signs (24Hr): Vital Signs - 24 hr 08/29/21 18:00 08/30/21 08:27 Temperature 98.0 F 98.2 F Pulse Rate 92 84 Respiratory Rate 14 16 Blood Pressure 116/76 119/73 Pulse Oximetry 97 98 BMI result Verdana 4 Body Mass Index Verdana 4 26.1 Verdana 4 Verdana 4 Labs Results: 08/28/21 18:29 08/28/21 18:29 Labs: Laboratory Results - last 48 hr 08/28/21 08/28/21 08/29/21 18:29 18:29 07:30 WBC 9.7 RBC 4.62 Hgb 13.8 L Hct 42.7 MCV 92.4 MCH 29.9 MCHC 32.3 RDW 13.1 Plt Count 269 MPV 9.6 Immature Gran % (Auto) 0.3 Neut % (Auto) 67.4 Lymph % (Auto) 19.6 L [place] % (Auto) 9.8 Eos % (Auto) 2.6 Baso % (Auto) 0.3 Lymph # (Auto) 1.9 [place] # (Auto) 1.0 Eos # (Auto) 0.3 Baso # (Auto) 0.0 Abs Immat Gran (auto) 0.03 Absolute Neuts (auto) 6.5 Absolute Nucleated RBC 0.000 Nucleated RBC % (auto) 0.0 Sodium 142 Potassium 4.2 Chloride 105 Carbon Dioxide 28 Anion Gap 13 BUN 23 H Creatinine 1.11 Estim Creat Clear Calc 73.6 Estimated GFR > 60 Random Glucose 118 H Estimat Average Glucose 105 Hemoglobin A1c % 5.3 Calcium 9.4 Magnesium Total Bilirubin 0.3 AST 14 ALT 21 Alkaline Phosphatase 76 Total Protein 6.8 Albumin 3.6 Triglycerides Cholesterol LDL Cholesterol, Calc HDL Cholesterol Vitamin B12 Folate TSH Free T4 08/29/21 08/29/21 07:30 07:30 WBC RBC Hgb Hct MCV MCH MCHC RDW Plt Count MPV Immature Gran % (Auto) Neut % (Auto) Lymph % (Auto) [place] % (Auto) Eos % (Auto) Baso % (Auto) Lymph # (Auto) [place] # (Auto) Eos # (Auto) Baso # (Auto) Abs Immat Gran (auto) Absolute Neuts (auto) Absolute Nucleated RBC Nucleated RBC % (auto) Sodium Potassium Chloride Carbon Dioxide Anion Gap BUN Creatinine Estim Creat Clear Calc Estimated GFR Random Glucose Estimat Average Glucose Hemoglobin A1c % Calcium Magnesium 2.1 Total Bilirubin AST ALT Alkaline Phosphatase Total Protein Albumin Triglycerides 59 Cholesterol 166 LDL Cholesterol, Calc 107 HDL Cholesterol 48 Vitamin B12 180 L Folate 17.3 TSH 1.60 Free T4 1.01 Medications Medications Current Medications Acetaminophen (Acetaminophen 325 Mg Tablet) 650 mg PO Q6H PRN PRN Reason: Headache/Pain Mild Scale (1-3) Last Admin: 08/30/21 08:25 Dose: 650 mg Documented by: Al Hydroxide/Mg Hydroxide (Magnesium Hydrox/Alum Hydrox 30 Ml Oral.Susp) 30 ml PO Q6H PRN PRN Reason: Heartburn/Nausea Buprenorphine/Naloxone (Buprenorphine/Naloxone 8/2 Mg Film) 1 film SUBLINGUAL DAILY@1800 [facility] Buprenorphine/Naloxone (Buprenorphine/Naloxone 12/3 Mg Film) 1 film SUBLINGUAL DAILY@0800 [facility] Cyanocobalamin (Cyanocobalamin (Vitamin B-12) 1,000 Mcg Tablet) 1,000 mcg PO DAILY [facility] Stop: 02/01/22 13:29 Last Admin: 08/30/21 08:22 Dose: 1,000 mcg Documented by: Folic Acid (Folic Acid 1 Mg Tablet) 1 mg PO DAILY [facility] Last Admin: 08/30/21 08:22 Dose: 1 mg Documented by: Hydroxyzine HCl (Hydroxyzine Hcl 50 Mg Tablet) 50 mg PO TID PRN PRN Reason: anxiety Last Admin: 08/30/21 08:22 Dose: 50 mg Documented by: Hydroxyzine HCl (Hydroxyzine Hcl 25 Mg Tablet) 25 mg PO Q6H PRN PRN Reason: Anxiety Lorazepam (Lorazepam 1 Mg Tablet) 1 mg PO Q2H PRN PRN Reason: CIWA > 7 and less than 12 Lorazepam (Lorazepam 1 Mg Tablet) 2 mg PO Q2H PRN PRN Reason: CIWA > 11 and less than 16 Lorazepam (Lorazepam 1 Mg Tablet) 3 mg PO Q2H PRN PRN Reason: CIWA > 15; call MD Magnesium Hydroxide (Milk Of Magnesia 30 Ml Oral.Susp) 30 ml PO DAILY PRN PRN Reason: Constipation Multivitamins/Vitamin C (Multivitamin Tablet) 1 tab PO DAILY [facility] Last Admin: 08/30/21 08:22 Dose: 1 tab Documented by: Nicotine (Nicotine 21 Mg Patch.Td24) 21 mg TRANSDERMA DAILY [facility] Last Admin: 08/30/21 08:22 Dose: 21 mg Documented by: Nicotine Polacrilex (Nicotine Polacrilex 2 Mg Gum) 2 mg BUCCAL Q2H PRN PRN Reason: Nicotine Cravings Olanzapine (Olanzapine 10 Mg Tablet) 10 mg PO BEDTIME [facility] Last Admin: 08/29/21 21:08 Dose: 10 mg Documented by: Prazosin HCl (Prazosin Hcl 1 Mg Capsule) 5 mg PO BEDTIME [facility]; Protocol Trazodone HCl (Trazodone Hcl 50 Mg Tablet) 50 mg PO BEDTIME PRN PRN Reason: Insomnia Last Admin: 08/28/21 22:23 Dose: 50 mg Documented by: Allergies Allergies Allergy/AdvReac Type Severity Reaction Status Date / Time No Known Allergies Allergy Verified 08/27/21 00:53 [No Known Allergies*] Assessment & Plan Assessment & Plan (1) Opioid use disorder, moderate, in early remission, on maintenance therapy, dependence: Status: Acute Code(s): F11.21 - Opioid dependence, in remission Assessment and Plan: on suboxone maintenance; restarted at arrival in ED. referral to rehab. suboxone dosing verified from clinic at 8 mg in the morning and 4 mg after dinner ([facility] at [address] [place] [address]). pt picked up week's supply last 08/25. (2) Chronic post-traumatic stress disorder (PTSD): Status: Acute Code(s): F43.12 - Post-traumatic stress disorder, chronic Assessment and Plan: prazosin for nightmares and insomnia. dosing increased from 4 mg QHS to 5 mg QHS as of 08/30. (3) Cocaine use disorder: Status: Acute Code(s): F14.10 - Cocaine abuse, uncomplicated Assessment and Plan: abstinence. referral to rehab. (4) Alcohol use disorder, moderate, dependence: Status: Acute Code(s): F10.20 - Alcohol dependence, uncomplicated Assessment and Plan: ativan per CIWA. refer for rehab. T/C antabuse. (5) B12 deficiency: Status: Acute Code(s): E53.8 - Deficiency of other specified B group vitamins Assessment and Plan: supplementation Plan as above I spent minutes with the patient and/or on the patient floor today, greater than?50% of which was spent counseling/coordinating care. Reason for contiued inpatient stay Substantial Risk for: inability to function and rapid decompensation
--- NOTE | 2021-08-30 13:54 | MHC.CLN ---
NUTRITION CONSULT FOR ENSURE SUPPLEMENT SINCE PATIENT REQUESTING ENSURE. ADDING ENSURE TID TO PROVIDE 1050 KCAL, 60 G PROTEIN. LIKELY HX OF POOR NUTRITION DUE TO HOMELESSNESS AND SUBSTANCE USE.
[2021-08-30] MEDS: Buprenorphine/Naloxone 4/1 mg FILM 1 FILM SUBLINGUAL (18:27)
[2021-08-30 21:47] VITALS: BP 131/75; PULSE 95; TEMP 36.7; O2SAT 98
[2021-08-30] MEDS: OLANZapine 10 MG TABLET PO (21:49)
[2021-08-30] MEDS: Prazosin HCL 5 MG CAPSULE PO (22:01)
[2021-08-31 07:00] VITALS: BMI 28.8
[2021-08-31] MEDS: Buprenorphine/Naloxone 8/2 mg FILM 1 FILM SUBLINGUAL (08:58)
[2021-08-31] MEDS: Acetaminophen 325 MG TABLET 650 MG PO ×2 (08:58→22:36)
[2021-08-31] MEDS: hydrOXYzine HCL 50 MG TABLET PO (08:58)
[2021-08-31] MEDS: Folic Acid 1 MG TABLET PO (08:59)
[2021-08-31] MEDS: Multivitamin TABLET 1 TAB PO (08:59)
[2021-08-31] MEDS: Cyanocobalamin (Vitamin B-12) 1,000 MCG TABLET 1000 MCG PO (09:00)
[2021-08-31] MEDS: Nicotine 21 MG PATCH.TD24 TRANSDERMA (09:05)
[2021-08-31 09:07] VITALS: BP 149/82; PULSE 92; RESP 16; TEMP 36.8; O2SAT 99
[2021-08-31] MEDS: Buprenorphine/Naloxone 4/1 mg FILM 1 FILM SUBLINGUAL ×2 (11:52→18:46)
--- NOTE | 2021-08-31 14:55 | P.PNPSI_ITS ---
Subjective Subjective Date of Service: 08/31/21 Reason For Visit: Crisis Interim History: suboxone dosing discussed. pt reports he had been prescribed 12 and 8 by [facility] and then the regimen had been changed elsewhere and called into the pharmacy at [facility], so that is why that is the most recent dose the pharmacy there has. informed pt he would call [facility] and get info from clinic/prescriber. otherwise c/o knee pain, amenable to try capsaicin cream. states his mood is pretty good yet also endorses SI. states he's trying to make the best of it. reports cold sweats and cramps today. per staff, irritable edge. c/o suboxone dosing's being too low. tylenol not effective. diarrhea 1 yesterday. CIWA 1. 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 Mental Status Exam Mental Status Exam Narrative: dressed in mixed hospital attire, adequately groomed. cooperative. general PMR. speech soft, decr amount. nml rate and latency. flattened prosody. thoughts linear and logical. affect constricted. mood pretty good. SI sti ll there. no HI/AVH expressed. Diagnostics Vital Signs (24Hr): Vital Signs - 24 hr 08/30/21 21:47 08/31/21 09:07 Temperature 98.0 F 98.3 F Pulse Rate 95 92 Respiratory Rate 16 Blood Pressure 131/75 149/82 H Pulse Oximetry 98 99 BMI result Verdana 4 Body Mass Index Verd[place] 4 26.1 Verdana 4 Verdana 4 Labs Results: 08/28/21 18:29 08/28/21 18:29 Medications Medications Current Medications Acetaminophen (Acetaminophen 325 Mg Tablet) 650 mg PO Q6H PRN PRN Reason: Headache/Pain Mild Scale (1-3) Last Admin: 08/31/21 08:58 Dose: 650 mg Documented by: Al Hydroxide/Mg Hydroxide (Magnesium Hydrox/Alum Hydrox 30 Ml Oral.Susp) 30 ml PO Q6H PRN PRN Reason: Heartburn/Nausea Buprenorphine/Naloxone (Buprenorphine/Naloxone 8/2 Mg Film) 1 film SUBLINGUAL DAILY [facility] Last Admin: 08/31/21 08:58 Dose: 1 film Documented by: Buprenorphine/Naloxone (Buprenorphine/Naloxone 4/1 Mg Film) 1 film SUBLINGUAL DAILY@1800 [facility] Last Admin: 08/30/21 18:27 Dose: 1 film Documented by: Capsaicin (Capsaicin 0.025% Cream 60 Gm Tube) 1 appl TOPICAL QID PRN; Protocol PRN Reason: knee pain Cyanocobalamin (Cyanocobalamin (Vitamin B-12) 1,000 Mcg Tablet) 1,000 mcg PO DAILY [facility] Stop: 09/05/21 13:29 Last Admin: 08/31/21 09:00 Dose: 1,000 mcg Documented by: Folic Acid (Folic Acid 1 Mg Tablet) 1 mg PO DAILY [facility] Last Admin: 08/31/21 08:59 Dose: 1 mg Documented by: Hydroxyzine HCl (Hydroxyzine Hcl 50 Mg Tablet) 50 mg PO TID PRN PRN Reason: anxiety Last Admin: 08/31/21 08:58 Dose: 50 mg Documented by: Hydroxyzine HCl (Hydroxyzine Hcl 25 Mg Tablet) 25 mg PO Q6H PRN PRN Reason: Anxiety Lorazepam (Lorazepam 1 Mg Tablet) 1 mg PO Q2H PRN PRN Reason: CIWA > 7 and less than 12 Lorazepam (Lorazepam 1 Mg Tablet) 2 mg PO Q2H PRN PRN Reason: CIWA > 11 and less than 16 Lorazepam (Lorazepam 1 Mg Tablet) 3 mg PO Q2H PRN PRN Reason: CIWA > 15; call Magnesium Hydroxide (Milk Of Magnesia 30 Ml Oral.Susp) 30 ml PO DAILY PRN PRN Reason: Constipation Multivitamins/Vitamin C (Multivitamin Tablet) 1 tab PO DAILY [facility] Last Admin: 08/31/21 08:59 Dose: 1 tab Documented by: Nicotine (Nicotine 21 Mg Patch.Td24) 21 mg TRANSDERMA DAILY [facility] Last Admin: 08/31/21 09:05 Dose: 21 mg Documented by: Nicotine Polacrilex (Nicotine Polacrilex 2 Mg Gum) 2 mg BUCCAL Q2H PRN PRN Reason: Nicotine Cravings Olanzapine (Olanzapine 10 Mg Tablet) 10 mg PO BEDTIME [facility] Last Admin: 08/30/21 21:49 Dose: 10 mg Documented by: Prazosin HCl (Prazosin Hcl 5 Mg Capsule) 5 mg PO BEDTIME [facility]; Protocol Last Admin: 08/30/21 22:01 Dose: 5 mg Documented by: Trazodone HCl (Trazodone Hcl 50 Mg Tablet) 50 mg PO BEDTIME PRN PRN Reason: Insomnia Last Admin: 08/28/21 22:23 Dose: 50 mg Documented by: Allergies Allergies Allergy/AdvReac Type Severity Reaction Status Date / Time No Known Allergies Allergy Verified 08/27/21 00:53 [No Known Allergies*] Assessment & Plan Assessment & Plan (1) Opioid use disorder, moderate, in early remission, on maintenance therapy, dependence: Status: Acute Code(s): F11.21 - Opioid dependence, in remission Assessment and Plan: on suboxone maintenance; restarted at arrival in ED. referral to rehab. suboxone dosing verified from clinic at 8 mg in the morning and 4 mg after dinner ([facility] at [address] pt picked up week's supply last 08/25. (2) Chronic post-traumatic stress disorder (PTSD): Status: Acute Code(s): F43.12 - Post-traumatic stress disorder, chronic Assessment and Plan: prazosin for nightmares and insomnia. dosing increased from 4 mg QHS to 5 mg QHS as of 08/30. (3) Cocaine use disorder: Status: Acute Code(s): F14.10 - Cocaine abuse, uncomplicated Assessment and Plan: abstinence. referral to rehab. (4) Alcohol use disorder, moderate, dependence: Status: Acute Code(s): F10.20 - Alcohol dependence, uncomplicated Assessment and Plan: ativan per MILLYWA. refer for rehab. T/C antabuse. (5) B12 deficiency: Status: Acute Code(s): E53.8 - Deficiency of other specified B group vitamins Assessment and Plan: supplementation Plan as above I spent minutes with the patient and/or on the patient floor today, greater than?50% of which was spent counseling/coordinating care. Reason for contiued inpatient stay Substantial Risk for: inability to function and rapid decompensation
[2021-08-31 22:34] VITALS: BP 136/81; PULSE 99; TEMP 36.5; O2SAT 98
[2021-08-31] MEDS: Prazosin HCL 5 MG CAPSULE PO (22:36)
[2021-08-31] MEDS: OLANZapine 10 MG TABLET PO (22:36)
[2021-09-01 08:00] VITALS: BP 131/65; PULSE 84; RESP 16; TEMP 36.6; O2SAT 97
[2021-09-01] MEDS: Capsaicin 0.025% Cream 60 GM TUBE 1 APPL TOPICAL (08:32)
[2021-09-01] MEDS: Nicotine 21 MG PATCH.TD24 TRANSDERMA (08:36)
[2021-09-01] MEDS: Buprenorphine/Naloxone 8/2 mg FILM 1 FILM SUBLINGUAL ×2 (08:36→18:55)
[2021-09-01] MEDS: Folic Acid 1 MG TABLET PO (08:37)
[2021-09-01] MEDS: Multivitamin TABLET 1 TAB PO (08:37)
[2021-09-01] MEDS: Cyanocobalamin (Vitamin B-12) 1,000 MCG TABLET 1000 MCG PO (08:37)
[2021-09-01] MEDS: Buprenorphine/Naloxone 4/1 mg FILM 1 FILM SUBLINGUAL (11:25)
--- NOTE | 2021-09-01 12:44 | P.PNPSI_ITS ---
Subjective Subjective Date of Service: 09/01/21 Reason For Visit: Crisis Interim History: pt's only complaint today is awakening in the night in a cold sweat. agrees to increase prazosin to 6 mg at bedtime. informed a call had been placed by this technical publications writer to [facility] for verification of suboxone dosing Hx but no call-back had yet been received. MD prescribes an additional 4 mg suboxone once again today. per staff, c/o poor sleep. no AH. pleasant, visible. attending groups. DC to streets-dependent SI. capsaicin working well for him. appeared to have slept well. not in alcohol withdrawal per CIWA scores. Mental Status Exam Mental Status Exam Narrative: dressed in [facility] hospital attire, adequately groomed. cooperative. general PMR. speech soft, decr amount. nml rate and latency. flattened prosody. thoughts linear and logical. affect constricted. no SI/HI/AVH expressed. Diagnostics Vital Signs (24Hr): Vital Signs - 24 hr 08/31/21 22:34 09/01/21 08:00 Temperature 97.7 F 97.9 F Pulse Rate 99 84 Respiratory Rate 16 Blood Pressure 136/81 131/65 Pulse Oximetry 98 97 BMI result [place] 4 Body Mass Index [place] 4 28.8 Verdana 4 Verdana 4 Labs Results: 08/28/21 18:29 08/28/21 18:29 Medications Medications Current Medications Acetaminophen (Acetaminophen 325 Mg Tablet) 650 mg PO Q6H PRN PRN Reason: Headache/Pain Mild Scale (1-3) Last Admin: 08/31/21 22:36 Dose: 650 mg Documented by: Al Hydroxide/Mg Hydroxide (Magnesium Hydrox/Alum Hydrox 30 Ml Oral.Susp) 30 ml PO Q6H PRN PRN Reason: Heartburn/Nausea Buprenorphine/Naloxone (Buprenorphine/Naloxone 8/2 Mg Film) 1 film SUBLINGUAL DAILY [facility] Last Admin: 09/01/21 08:36 Dose: 1 film Documented by: Buprenorphine/Naloxone (Buprenorphine/Naloxone 4/1 Mg Film) 1 film SUBLINGUAL DAILY@1800 [facility] Last Admin: 08/31/21 18:46 Dose: 1 film Documented by: Capsaicin (Capsaicin 0.025% Cream 60 Gm Tube) 1 appl TOPICAL QID PRN; Protocol PRN Reason: knee pain Last Admin: 09/01/21 08:32 Dose: 1 appl Documented by: Cyanocobalamin (Cyanocobalamin (Vitamin B-12) 1,000 Mcg Tablet) 1,000 mcg PO DAILY [facility] Stop: 09/05/21 13:29 Last Admin: 09/01/21 08:37 Dose: 1,000 mcg Documented by: Folic Acid (Folic Acid 1 Mg Tablet) 1 mg PO DAILY [facility] Last Admin: 09/01/21 08:37 Dose: 1 mg Documented by: Hydroxyzine HCl (Hydroxyzine Hcl 50 Mg Tablet) 50 mg PO TID PRN PRN Reason: anxiety Last Admin: 08/31/21 08:58 Dose: 50 mg Documented by: Hydroxyzine HCl (Hydroxyzine Hcl 25 Mg Tablet) 25 mg PO Q6H PRN PRN Reason: Anxiety Magnesium Hydroxide (Milk Of Magnesia 30 Ml Oral.Susp) 30 ml PO DAILY PRN PRN Reason: Constipation Multivitamins/Vitamin C (Multivitamin Tablet) 1 tab PO DAILY [facility] Last Admin: 09/01/21 08:37 Dose: 1 tab Documented by: Nicotine (Nicotine 21 Mg Patch.Td24) 21 mg TRANSDERMA DAILY [facility] Last Admin: 09/01/21 08:36 Dose: 21 mg Documented by: Nicotine Polacrilex (Nicotine Polacrilex 2 Mg Gum) 2 mg BUCCAL Q2H PRN PRN Reason: Nicotine Cravings Olanzapine (Olanzapine 10 Mg Tablet) 10 mg PO BEDTIME [facility] Last Admin: 08/31/21 22:36 Dose: 10 mg Documented by: Prazosin HCl (Prazosin Hcl 1 Mg Capsule) 6 mg PO BEDTIME [facility]; Protocol Trazodone HCl (Trazodone Hcl 50 Mg Tablet) 50 mg PO BEDTIME PRN PRN Reason: Insomnia Last Admin: 08/28/21 22:23 Dose: 50 mg Documented by: Allergies Allergies Allergy/AdvReac Type Severity Reaction Status Date / Time No Known Allergies Allergy Verified 08/27/21 00:53 [No Known Allergies*] Assessment & Plan Assessment & Plan (1) Opioid use disorder, moderate, in early remission, on maintenance therapy, dependence: Status: Acute Code(s): F11.21 - Opioid dependence, in remission Assessment and Plan: on suboxone maintenance; restarted at arrival in ED. referral to rehab. sub oxone most recent dosing verified from pharmacy at 8 mg in the morning and 4 mg after dinner ([facility] at [address] [place] [address]). pt picked up week's supply last 08/25. attempting to get prescription Hx from clinic rather than pharmacy as pt claims that until recently he had been on a higher dose which worked better for him and his dose was changed not by his clinic but by [facility] staff. [facility] called x2, awaiting call-back. (2) Chronic post-traumatic stress disorder (PTSD): Status: Acute Code(s): F43.12 - Post-traumatic stress disorder, chronic Assessment and Plan: prazosin for nightmares and insomnia. dosing increased from 4 mg QHS to 5 mg QHS as of 08/30, to 6 mg QHS as of 09/01. (3) Cocaine use disorder: Status: Acute Code(s): F14.10 - Cocaine abuse, uncomplicated Assessment and Plan: abstinence. referral to rehab. (4) Alcohol use disorder, moderate, dependence: Status: Acute Code(s): F10.20 - Alcohol dependence, uncomplicated Assessment and Plan: DCed ativan per CIWA 08/12 as pt not scoring more than 1 or 2 on CIWA since a dmission. refer for rehab. T/C antabuse. (5) B12 deficiency: Status: Acute Code(s): E53.8 - Deficiency of other specified B group vitamins Assessment and Plan: supplementation Plan as above I spent minutes with the patient and/or on the patient floor today, greater than?50% of which was spent counseling/coordinating care. Reason for contiued inpatient stay Substantial Risk for: inability to function and rapid decompensation
--- NOTE | 2021-09-01 14:41 | PC.NURSE ---
Called [facility] Suboxone clinic ([phone]), spoke with a nurse who stated the last time this pt was at their facility he was taking Suboxone 16mg daily, but he never returned back to the program. Pt states the dosing should be 12mg AM and 8mg PM.
[2021-09-01] MEDS: hydrOXYzine HCL 50 MG TABLET PO (15:24)
[2021-09-01 21:41] VITALS: BP 138/72; PULSE 100; RESP 18; TEMP 36.7; O2SAT 98
[2021-09-01] MEDS: OLANZapine 10 MG TABLET PO (21:47)
[2021-09-01] MEDS: Prazosin HCL 1 MG CAPSULE 6 MG PO (21:47)
[2021-09-02] MEDS: Folic Acid 1 MG TABLET PO (09:24)
[2021-09-02] MEDS: Cyanocobalamin (Vitamin B-12) 1,000 MCG TABLET 1000 MCG PO (09:24)
[2021-09-02] MEDS: Buprenorphine/Naloxone 8/2 mg FILM 1 FILM SUBLINGUAL ×2 (09:24→18:20)
[2021-09-02] MEDS: Multivitamin TABLET 1 TAB PO (09:24)
[2021-09-02] MEDS: Nicotine 21 MG PATCH.TD24 TRANSDERMA (09:25)
[2021-09-02 09:30] VITALS: BP 128/68; PULSE 98; RESP 16; TEMP 36.7; O2SAT 96
[2021-09-02] MEDS: Capsaicin 0.025% Cream 60 GM TUBE 1 APPL TOPICAL ×2 (10:27→22:27)
--- NOTE | 2021-09-02 12:54 | HO.PSYCHPN ---
Subjective Subjective Date of Service: 09/02/21 Reason For Visit: Crisis Interim History: The nursing staff reported that he slept poorly, he has attended groups and he denies /, able to contract for safety. On interview, he reported feeling fine, new symptoms, able to contract for safety. Mental Status Exam Mental Status Exam Patient Appearance: Appropriate Patient Orientation: Person and Situation Level of Consciousness: Awake Patient Behavior: Cooperative Mood Description: Constricted Affect Description: Constricted Patient Cognition Impaired: No Ability to Follow Directions: Good Speech Pattern: Appropriate Hallucinations: None Delusions: Not Present Thought Process: Linear Thought Content: positive for Intact Judgement: Fair Diagnostics Vital Signs (24Hr): Vital Signs - 24 hr 09/01/21 21:41 09/02/21 09:30 Temperature 98.1 F 98.0 F Pulse Rate 100 98 Respiratory Rate 18 16 Blood Pressure 138/72 128/68 Pulse Oximetry 98 96 BMI result Body Mass Index 28.8 Labs Results: 08/28/21 18:29 08/28/21 18:29 Medications Medications Current Medications Acetaminophen (Acetaminophen 325 Mg Tablet) 650 mg PO Q6H PRN PRN Reason: Headache/Pain Mild Scale (1-3) Last Admin: 08/31/21 22:36 Dose: 650 mg Documented by: Al Hydroxide/Mg Hydroxide (Magnesium Hydrox/Alum Hydrox 30 Ml Oral.Susp) 30 ml PO Q6H PRN PRN Reason: Heartburn/Nausea Buprenorphine/Naloxone (Buprenorphine/Naloxone 8/2 Mg Film) 1 film SUBLINGUAL DAILY [facility] Last Admin: 09/02/21 09:24 Dose: 1 film Documented by: Buprenorphine/Naloxone (Buprenorphine/Naloxone 8/2 Mg Film) 1 film SUBLINGUAL DAILY@1800 [facility] Last Admin: 09/01/21 18:55 Dose: 1 film Documented by: Capsaicin (Capsaicin 0.025% Cream 60 Gm Tube) 1 appl TOPICAL QID PRN; Protocol PRN Reason: knee pain Last Admin: 09/02/21 10:27 Dose: 1 appl Documented by: Cyanocobalamin (Cyanocobalamin (Vitamin B-12) 1,000 Mcg Tablet) 1,000 mcg PO DAILY [facility] Stop: 09/05/21 13:29 Last Admin: 09/02/21 09:24 Dose: 1,000 mcg Documented by: Folic Acid (Folic Acid 1 Mg Tablet) 1 mg PO DAILY [facility] Last Admin: 09/02/21 09:24 Dose: 1 mg Documented by: Hydroxyzine HCl (Hydroxyzine Hcl 50 Mg Tablet) 50 mg PO TID PRN PRN Reason: anxiety Last Admin: 09/01/21 15:24 Dose: 50 mg Documented by: Hydroxyzine HCl (Hydroxyzine Hcl 25 Mg Tablet) 25 mg PO Q6H PRN PRN Reason: Anxiety Magnesium Hydroxide (Milk Of Magnesia 30 Ml Oral.Susp) 30 ml PO DAILY PRN PRN Reason: Constipation Multivitamins/Vitamin C (Multivitamin Tablet) 1 tab PO DAILY [facility] Last Admin: 09/02/21 09:24 Dose: 1 tab Documented by: Nicotine (Nicotine 21 Mg Patch.Td24) 21 mg TRANSDERMA DAILY [facility] Last Admin: 09/02/21 09:25 Dose: 21 mg Documented by: Nicotine Polacrilex (Nicotine Polacrilex 2 Mg Gum) 2 mg BUCCAL Q2H PRN PRN Reason: Nicotine Cravings Olanzapine (Olanzapine 10 Mg Tablet) 10 mg PO BEDTIME [facility] Last Admin: 09/01/21 21:47 Dose: 10 mg Documented by: Prazosin HCl (Prazosin Hcl 1 Mg Capsule) 6 mg PO BEDTIME [facility]; Protocol Last Admin: 09/01/21 21:47 Dose: 6 mg Documented by: Trazodone HCl (Trazodone Hcl 50 Mg Tablet) 50 mg PO BEDTIME PRN PRN Reason: Insomnia Last Admin: 08/28/21 22:23 Dose: 50 mg Documented by: Allergies Allergies Allergy/AdvReac Type Severity Reaction Status Date / Time No Known Allergies Allergy Verified 08/27/21 00:53 [No Known Allergies*] Assessment & Plan Assessment & Plan (1) Opioid use disorder, moderate, in early remission, on maintenance therapy, dependence: Status: Acute Code(s): F11.21 - Opioid dependence, in remission Assessment and Plan: on suboxone maintenance; restarted at arrival in ED. referral to rehab. suboxone most recent dosing verified from pharmacy at 8 mg in the morning and 4 mg after dinner ([facility] at [address] [place] [address]). pt picked up week's supply last 08/25. MD attempting to get prescription Hx from clinic rather than pharmacy as pt claims that until recently he had been on a higher dose which worked better for him and his dose was changed not by his clinic but by [facility] staff. [facility] called x2, awaiting call-back. Currently stable in the unit, compliant with treatment. (2) Chronic post-traumatic stress disorder (PTSD): Status: Acute Code(s): F43.12 - Post-traumatic stress disorder, chronic Assessment and Plan: prazosin for nightmares and insomnia. dosing increased from 4 mg QHS to 5 mg QHS as of 08/30, to 6 mg QHS as of 09/01. (3) Cocaine use disorder: Status: Acute Code(s): F14.10 - Cocaine abuse, uncomplicated Assessment and Plan: abstinence. referral to rehab. (4) Alcohol use disorder, moderate, dependence: Status: Acute Code(s): F10.20 - Alcohol dependence, uncomplicated Assessment and Plan: DCed ativan per CIWA 08/12 as pt not scoring more than 1 or 2 on CIWA since admission. refer for rehab. T/C antabuse. (5) B12 deficiency: Status: Acute Code(s): E53.8 - Deficiency of other specified B group vitamins Assessment and Plan: supplementation Plan as above I spent minutes with the patient and/or on the patient floor today, greater than?50% of which was spent counseling/coordinating care. Reason for contiued inpatient stay Substantial Risk for: inability to function, rapid decompensation and med/psych decompensation
[2021-09-02] MEDS: hydrOXYzine HCL 50 MG TABLET PO (18:20)
[2021-09-02] MEDS: Prazosin HCL 5 MG CAPSULE PO (22:26)
[2021-09-02] MEDS: OLANZapine 10 MG TABLET PO (22:26)
[2021-09-02] MEDS: Prazosin HCL 1 MG CAPSULE PO (22:26)
[2021-09-02 22:35] VITALS: BP 151/80; PULSE 95; RESP 16; TEMP 36.6; O2SAT 94
[2021-09-03] MEDS: Magnesium Hydrox/Alum Hydrox 30 ML ORAL.SUSP PO (06:19)
[2021-09-03 08:30] VITALS: BP 138/78; PULSE 92; RESP 18; TEMP 36.7; O2SAT 98
[2021-09-03] MEDS: Nicotine 21 MG PATCH.TD24 TRANSDERMA (09:37)
[2021-09-03] MEDS: Buprenorphine/Naloxone 8/2 mg FILM 1 FILM SUBLINGUAL ×2 (09:37→18:46)
[2021-09-03] MEDS: Folic Acid 1 MG TABLET PO (09:37)
[2021-09-03] MEDS: Multivitamin TABLET 1 TAB PO (09:37)
[2021-09-03] MEDS: Cyanocobalamin (Vitamin B-12) 1,000 MCG TABLET 1000 MCG PO (09:37)
--- NOTE | 2021-09-03 13:06 | P.PNPSI_ITS ---
Subjective Subjective Date of Service: 09/03/21 Reason For Visit: Crisis Interim History: The nursing staff reported that the patient complained of anxiety and depression. He had some withdrawal symptoms even thought that he is on Suboxone. On interview, he was able to contract for safety. He complained of leg pain. Mental Status Exam Mental Status Exam Patient Appearance: Well Grooomed Patient Orientation: Person Level of Consciousness: Awake Patient Behavior: Cooperative Mood Description: Depressed Affect Description: Constricted Patient Cognition Impaired: No Speech Pattern: Clear Memory Description: Intact Hallucinations: None Delusions: Not Present Thought Process: Linear Thought Content: positive for Circumstantial Judgement: Fair Diagnostics Vital Signs (24Hr): Vital Signs - 24 hr 09/02/21 22:35 09/03/21 08:30 Temperature 97.8 F 98.0 F Pulse Rate 95 92 Respiratory Rate 16 18 Blood Pressure 151/80 H 138/78 Pulse Oximetry 94 98 BMI result Verdana 4 Body Mass Index Verdana 4 28.8 Verdana 4 Verdana 4 Labs Results: 08/28/21 18:29 08/28/21 18:29 Medications Medications Current Medications Acetaminophen (Acetaminophen 325 Mg Tablet) 650 mg PO Q6H PRN PRN Reason: Headache/Pain Mild Scale (1-3) Last Admin: 08/31/21 22:36 Dose: 650 mg Documented by: Al Hydroxide/Mg Hydroxide (Magnesium Hydrox/Alum Hydrox 30 Ml Oral.Susp) 30 ml PO Q6H PRN PRN Reason: Heartburn/Nausea Last Admin: 09/03/21 06:19 Dose: 30 ml Documented by: Buprenorphine/Naloxone (Buprenorphine/Naloxone 8/2 Mg Film) 1 film SUBLINGUAL DAILY [facility] Last Admin: 09/03/21 09:37 Dose: 1 film Documented by: Buprenorphine/Naloxone (Buprenorphine/Naloxone 8/2 Mg Film) 1 film SUBLINGUAL DAILY@1800 [facility] Last Admin: 09/02/21 18:20 Dose: 1 film Documented by: Capsaicin (Capsaicin 0.025% Cream 60 Gm Tube) 1 appl TOPICAL QID PRN; Protocol PRN Reason: knee pain Last Admin: 09/02/21 22:27 Dose: 1 appl Documented by: Cyanocobalamin (Cyanocobalamin (Vitamin B-12) 1,000 Mcg Tablet) 1,000 mcg PO DAILY [facility] Stop: 09/05/21 13:29 Last Admin: 09/03/21 09:37 Dose: 1,000 mcg Documented by: Folic Acid (Folic Acid 1 Mg Tablet) 1 mg PO DAILY [facility] Last Admin: 09/03/21 09:37 Dose: 1 mg Documented by: Hydroxyzine HCl (Hydroxyzine Hcl 50 Mg Tablet) 50 mg PO TID PRN PRN Reason: anxiety Last Admin: 09/02/21 18:20 Dose: 50 mg Documented by: Hydroxyzine HCl (Hydroxyzine Hcl 25 Mg Tablet) 25 mg PO Q6H PRN PRN Reason: Anxiety Magnesium Hydroxide (Milk Of Magnesia 30 Ml Oral.Susp) 30 ml PO DAILY PRN PRN Reason: Constipation Multivitamins/Vitamin C (Multivitamin Tablet) 1 tab PO DAILY [facility] Last Admin: 09/03/21 09:37 Dose: 1 tab Documented by: Nicotine (Nicotine 21 Mg Patch.Td24) 21 mg TRANSDERMA DAILY [facility] Last Admin: 09/03/21 09:37 Dose: 21 mg Documented by: Nicotine Polacrilex (Nicotine Polacrilex 2 Mg Gum) 2 mg BUCCAL Q2H PRN PRN Reason: Nicotine Cravings Olanzapine (Olanzapine 10 Mg Tablet) 10 mg PO BEDTIME [facility] Last Admin: 09/02/21 22:26 Dose: 10 mg Documented by: Prazosin HCl (Prazosin Hcl 5 Mg Capsule) 5 mg PO BEDTIME [facility] Last Admin: 09/02/21 22:26 Dose: 5 mg Documented by: Prazosin HCl (Prazosin Hcl 1 Mg Capsule) 1 mg PO BEDTIME [facility] Last Admin: 09/02/21 22:26 Dose: 1 mg Documented by: Trazodone HCl (Trazodone Hcl 50 Mg Tablet) 50 mg PO BEDTIME PRN PRN Reason: Insomnia Last Admin: 08/28/21 22:23 Dose: 50 mg Documented by: Allergies Allergies Allergy/AdvReac Type Severity Reaction Status Date / Time No Known Allergies Allergy Verified 08/27/21 00:53 [No Known Allergies*] Assessment & Plan Assessment & Plan (1) Opioid use disorder, moderate, in early remission, on maintenance therapy, dependence: Status: Acute Code(s): F11.21 - Opioid dependence, in remission Assessment and Plan: on suboxone maintenance; restarted at arrival in ED. referral to rehab. suboxone most recent dosing verified from pharmacy at 8 mg in the morning and 4 mg after dinner ([facility] at [address] [place] [address]). pt picked up week's supply last 08/25. MD attempting to get prescription Hx from clinic rather than pharmacy as pt claims that until recently he had been on a higher dose which wor ked better for him and his dose was changed not by his clinic but by [facility] staff. [facility] called x2, awaiting call-back. Currently stable in the unit, compliant with treatment. Today we added Naproxen for pain. (2) Chronic post-traumatic stress disorder (PTSD): Status: Acute Code(s): F43.12 - Post-traumatic stress disorder, chronic Assessment and Plan: prazosin for nightmares and insomnia. dosing increased from 4 mg QHS to 5 mg QHS as of 08/30, to 6 mg QHS as of 09/01. (3) Cocaine use disorder: Status: Acute Code(s): F14.10 - Cocaine abuse, uncomplicated Assessment and Plan: abstinence. referral to rehab. (4) Alcohol use disorder, moderate, dependence: Status: Acute Code(s): F10.20 - Alcohol dependence, uncomplicated Assessment and Plan: DCed ativan per CIWA 08/12 as pt not scoring more than 1 or 2 on CIWA since admission. refer for rehab. T/C antabuse. (5) B12 deficiency: Status: Acute Code(s): E53.8 - Deficiency of other specified B group vitamins Assessment and Plan: supplementation Plan as above I spent minutes with the patient and/or on the patient floor today, greater than?50% of which was spent counseling/coordinating care. Reason for contiued inpatient stay Substantial Risk for: inability to function, rapid decompensation and med/psych decompensation
[2021-09-03] MEDS: NaPROXEN 500 MG TABLET PO ×2 (14:09→22:41)
[2021-09-03 22:37] VITALS: BP 133/82; PULSE 82; TEMP 36.2; O2SAT 97
[2021-09-03] MEDS: Prazosin HCL 1 MG CAPSULE PO (22:41)
[2021-09-03] MEDS: Prazosin HCL 5 MG CAPSULE PO (22:41)
[2021-09-03] MEDS: OLANZapine 10 MG TABLET PO (22:41)
[2021-09-03] MEDS: Capsaicin 0.025% Cream 60 GM TUBE 1 APPL TOPICAL (22:42)
[2021-09-04 06:00] VITALS: BP 118/71; PULSE 92; RESP 16; TEMP 36.7; O2SAT 98
[2021-09-04] MEDS: Nicotine 21 MG PATCH.TD24 TRANSDERMA (08:36)
[2021-09-04] MEDS: Folic Acid 1 MG TABLET PO (08:36)
[2021-09-04] MEDS: Multivitamin TABLET 1 TAB PO (08:36)
[2021-09-04] MEDS: Cyanocobalamin (Vitamin B-12) 1,000 MCG TABLET 1000 MCG PO (08:36)
[2021-09-04] MEDS: Buprenorphine/Naloxone 8/2 mg FILM 1 FILM SUBLINGUAL ×2 (08:41→18:15)
[2021-09-04] MEDS: NaPROXEN 500 MG TABLET PO ×2 (12:27→23:10)
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
[2021-09-04] MEDS: Prazosin HCL 5 MG CAPSULE PO (23:10)
[2021-09-04] MEDS: OLANZapine 10 MG TABLET PO (23:10)
[2021-09-04] MEDS: Prazosin HCL 1 MG CAPSULE 3 MG PO (23:10)
[2021-09-04 23:12] VITALS: BP 137/88; PULSE 94; TEMP 36.3; O2SAT 98
[2021-09-05] MEDS: Buprenorphine/Naloxone 8/2 mg FILM 1 FILM SUBLINGUAL ×2 (08:53→17:02)
[2021-09-05] MEDS: Cyanocobalamin (Vitamin B-12) 1,000 MCG TABLET 1000 MCG PO (08:53)
[2021-09-05] MEDS: Folic Acid 1 MG TABLET PO (08:53)
[2021-09-05] MEDS: Nicotine 21 MG PATCH.TD24 TRANSDERMA (08:54)
[2021-09-05] MEDS: Multivitamin TABLET 1 TAB PO (08:54)
[2021-09-05] MEDS: Capsaicin 0.025% Cream 60 GM TUBE 1 APPL TOPICAL (09:00)
[2021-09-05] MEDS: NaPROXEN 500 MG TABLET PO ×2 (12:10→21:31)
--- NOTE | 2021-09-05 12:56 | P.PNPSI_ITS ---
Subjective Subjective Date of Service: 09/05/21 Reason For Visit: Crisis Interim History: pt reports no change in his clinical state. very concerned about discharge to [facility], feeling there are too many drugs there and he will relapse and he doesn't want to go back to the start like that. says he's trying to get OFF of drugs, not restart. looking into options in [place]. c/o nightmares and difficulty sleeping, agreeable to increase prazosin to 10 mg QHS. contacted hospitalist re swollen knee. per staff, pt upset re plan to discharge him to long-term if a [facility] does not accept him in the near future. Mental Status Exam Mental Status Exam Narrative: dressed in street clothes, adequately groomed. cooperative. general PMR. speech nml amount, rate, loudness, latency. flattened prosody. thoughts linear and logical. affect constricted. no SI/HI/AVH expressed. Diagnostics Vital Signs (24Hr): Vital Signs - 24 hr 09/04/21 23:12 Temperature 97.3 F Pulse Rate 94 Blood Pressure 137/88 Pulse Oximetry 98 BMI result Verdana 4 Body Mass Index Verdana 4 28.8 Verdana 4 Verdana 4 Labs Results: 08/28/21 18:29 08/28/21 18:29 Medications Medications Current Medications Acetaminophen (Acetaminophen 325 Mg Tablet) 650 mg PO Q6H PRN PRN Reason: Headache/Pain Mild Scale (1-3) Last Admin: 08/31/21 22:36 Dose: 650 mg Documented by: Al Hydroxide/Mg Hydroxide (Magnesium Hydrox/Alum Hydrox 30 Ml Oral.Susp) 30 ml PO Q6H PRN PRN Reason: Heartburn/Nausea Last Admin: 09/03/21 06:19 Dose: 30 ml Documented by: Buprenorphine/Naloxone (Buprenorphine/Naloxone 8/2 Mg Film) 1 film SUBLINGUAL DAILY [facility] Last Admin: 09/05/21 08:53 Dose: 1 film Documented by: Buprenorphine/Naloxone (Buprenorphine/Naloxone 8/2 Mg Film) 1 film SUBLINGUAL DAILY@1800 [facility] Last Admin: 09/04/21 18:15 Dose: 1 film Documented by: Capsaicin (Capsaicin 0.025% Cream 60 Gm Tube) 1 appl TOPICAL QID PRN; Protocol PRN Reason: knee pain Last Admin: 09/05/21 09:00 Dose: 1 appl Documented by: Cyanocobalamin (Cyanocobalamin (Vitamin B-12) 1,000 Mcg Tablet) 1,000 mcg PO DAILY [facility] Stop: 09/05/21 13:29 Last Admin: 09/05/21 08:53 Dose: 1,000 mcg Documented by: Folic Acid (Folic Acid 1 Mg Tablet) 1 mg PO DAILY [facility] Last Admin: 09/05/21 08:53 Dose: 1 mg Documented by: Hydroxyzine HCl (Hydroxyzine Hcl 50 Mg Tablet) 50 mg PO TID PRN PRN Reason: anxiety Last Admin: 09/02/21 18:20 Dose: 50 mg Documented by: Hydroxyzine HCl (Hydroxyzine Hcl 25 Mg Tablet) 25 mg PO Q6H PRN PRN Reason: Anxiety Magnesium Hydroxide (Milk Of Magnesia 30 Ml Oral.Susp) 30 ml PO DAILY PRN PRN Reason: Constipation Multivitamins/Vitamin C (Multivitamin Tablet) 1 tab PO DAILY [facility] Last Admin: 09/05/21 08:54 Dose: 1 tab Documented by: Naproxen (Naproxen 500 Mg Tablet) 500 mg PO Q12H [facility] Last Admin: 09/05/21 12:10 Dose: 500 mg Documented by: Nicotine (Nicotine 21 Mg Patch.Td24) 21 mg TRANSDERMA DAILY [facility] Last Admin: 09/05/21 08:54 Dose: 21 mg Documented by: Nicotine Polacrilex (Nicotine Polacrilex 2 Mg Gum) 2 mg BUCCAL Q2H PRN PRN Reason: Nicotine Cravings Olanzapine (Olanzapine 10 Mg Tablet) 10 mg PO BEDTIME [facility] Last Admin: 09/04/21 23:10 Dose: 10 mg Documented by: Prazosin HCl (Prazosin Hcl 5 Mg Capsule) 10 mg PO BEDTIME [facility] Trazodone HCl (Trazodone Hcl 50 Mg Tablet) 50 mg PO BEDTIME PRN PRN Reason: Insomnia Last Admin: 08/28/21 22:23 Dose: 50 mg Documented by: Allergies Allergies Allergy/AdvReac Type Severity Reaction Status Date / Time No Known Allergies Allergy Verified 08/27/21 00:53 [No Known Allergies*] Assessment & Plan Assessment & Plan (1) Opioid use disorder, moderate, in early remission, on maintenance therapy, dependence: Status: Acute Code(s): F11.21 - Opioid dependence, in remission Assessment and Plan: on suboxone maintenance; restarted at arrival in ED. referral to rehab. suboxone most recent dosing verified from pharmacy at 8 mg in the morning and 4 mg after dinner ([facility] at [address] [place] [address]). pt picked up week's supply last 08/25. attempting to get prescription Hx from clinic rather than pharmacy as pt claims that until recently he had been on a higher dose which worked better for him and his dose was changed not by his clinic but by [facility] staff. per [facility], pt's previous suboxone dose was 8 mg BID, which he has been prescribed here. Currently stable in the unit, compliant with treatment. Naproxen for pain. referral to rehabs. (2) Chronic post-traumatic stress disorder (PTSD): Status: Acute Code(s): F43.12 - Post-traumatic stress disorder, chronic Assessment and Plan: prazosin for nightmares and insomnia. dosing increased from 4 mg QHS to 5 mg QHS as of 08/30, to 6 mg QHS as of 09/01, 8 mg as of 09/04, 10 mg as of 09/05. (3) Cocaine use disorder: Status: Acute Code(s): F14.10 - Cocaine abuse, uncomplicated Assessment and Plan: abstinence. referral to rehab. (4) Alcohol use disorder, moderate, dependence: Status: Acute Code(s): F10.20 - Alcohol dependence, uncomplicated Assessment and Plan: DCed ativan per CIWA 08/12 as pt not scoring more than 1 or 2 on CIWA since admission. refer for rehab. T/C antabuse. (5) B12 deficiency: Status: Acute Code(s): E53.8 - Deficiency of other specified B group vitamins Assessment and Plan: supplementation Plan as above I spent minutes with the patient and/or on the patient floor today, great er than?50% of which was spent counseling/coordinating care. Reason for contiued inpatient stay Substantial Risk for: inability to function and rapid decompensation
[2021-09-05 21:25] VITALS: BP 135/85; PULSE 100; RESP 18; TEMP 36.5; O2SAT 96
[2021-09-05] MEDS: Prazosin HCL 5 MG CAPSULE 10 MG PO (21:31)
[2021-09-05] MEDS: OLANZapine 10 MG TABLET PO (21:31)
[2021-09-06 07:47] VITALS: BP 118/61; PULSE 74; RESP 16; TEMP 36.7; O2SAT 99
[2021-09-06] MEDS: Nicotine 21 MG PATCH.TD24 TRANSDERMA (07:50)
[2021-09-06] MEDS: Folic Acid 1 MG TABLET PO (07:50)
[2021-09-06] MEDS: Buprenorphine/Naloxone 8/2 mg FILM 1 FILM SUBLINGUAL ×2 (07:50→18:09)
[2021-09-06] MEDS: Multivitamin TABLET 1 TAB PO (07:50)
[2021-09-06] MEDS: Capsaicin 0.025% Cream 60 GM TUBE 1 APPL TOPICAL (07:51)
[2021-09-06] MEDS: NaPROXEN 500 MG TABLET PO ×2 (11:10→21:29)
--- NOTE | 2021-09-06 15:10 | P.PNPSI_ITS ---
Subjective Subjective Date of Service: 09/06/21 Reason For Visit: Crisis Interim History: pt appears a bit downtrodden. states he is doing OK. options weighed, decides to opt for having his sister bring him to the [facility] to have him section 35'ed. will discharge tomorrow at 10. no other complaints or requests. per staff, anxious re being discharged to a long-term. c/o poor sleep. tends to sleep in his room for an hour and then be in the day room sleeping alternating with doing puzzles. went back into his own room at 0400. Mental Status Exam Mental Status Exam Narrative: dressed in street clothes, adequately groomed. cooperative. general PMR. speech nml amount, rate, loudness, latency. flattened prosody. thoughts linear and logical. affect constricted. no SI/HI/AVH expressed. Diagnostics Vital Signs (24Hr): Vital Signs - 24 hr 09/05/21 21:25 09/06/21 07:47 Temperature 97.7 F 98.1 F Pulse Rate 100 74 Respiratory Rate 18 16 Blood Pressure 135/85 118/61 Pulse Oximetry 96 99 BMI result Verdana 4 Body Mass Index Verdana 4 28.8 Verdana 4 Verdana 4 Labs Results: 08/28/21 18:29 08/28/21 18:29 Medications Medications Current Medications Acetaminophen (Acetaminophen 325 Mg Tablet) 650 mg PO Q6H PRN PRN Reason: Headache/Pain Mild Scale (1-3) Last Admin: 08/31/21 22:36 Dose: 650 mg Documented by: Al Hydroxide/Mg Hydroxide (Magnesium Hydrox/Alum Hydrox 30 Ml Oral.Susp) 30 ml PO Q6H PRN PRN Reason: Heartburn/Nausea Last Admin: 09/03/21 06:19 Dose: 30 ml Documented by: Buprenorphine/Naloxone (Buprenorphine/Naloxone 8/2 Mg Film) 1 film SUBLINGUAL DAILY RAS Last Admin: 09/06/21 07:50 Dose: 1 film Documented by: Buprenorphine/Naloxone (Buprenorphine/Naloxone 8/2 Mg Film) 1 film SUBLINGUAL DAILY@1800 RAS Last Admin: 09/05/21 17:02 Dose: 1 film Documented by: Capsaicin (Capsaicin 0.025% Cream 60 Gm Tube) 1 appl TOPICAL QID PRN; Protocol PRN Reason: knee pain Last Admin: 09/06/21 07:51 Dose: 1 appl Documented by: Folic Acid (Folic Acid 1 Mg Tablet) 1 mg PO DAILY [facility] Last Admin: 09/06/21 07:50 Dose: 1 mg Documented by: Hydroxyzine HCl (Hydroxyzine Hcl 50 Mg Tablet) 50 mg PO TID PRN PRN Reason: anxiety Last Admin: 09/02/21 18:20 Dose: 50 mg Documented by: Hydroxyzine HCl (Hydroxyzine Hcl 25 Mg Tablet) 25 mg PO Q6H PRN PRN Reason: Anxiety Magnesium Hydroxide (Milk Of Magnesia 30 Ml Oral.Susp) 30 ml PO DAILY PRN PRN Reason: Constipation Multivitamins/Vitamin C (Multivitamin Tablet) 1 tab PO DAILY [facility] Last Admin: 09/06/21 07:50 Dose: 1 tab Documented by: Naproxen (Naproxen 500 Mg Tablet) 500 mg PO Q12H [facility] Last Admin: 09/06/21 11:10 Dose: 500 mg Documented by: Nicotine (Nicotine 21 Mg Patch.Td24) 21 mg TRANSDERMA DAILY [facility] Last Admin: 09/06/21 07:50 Dose: 21 mg Documented by: Nicotine Polacrilex (Nicotine Polacrilex 2 Mg Gum) 2 mg BUCCAL Q2H PRN PRN Reason: Nicotine Cravings Olanzapine (Olanzapine 10 Mg Tablet) 10 mg PO BEDTIME [facility] Last Admin: 09/05/21 21:31 Dose: 10 mg Documented by: Prazosin HCl (Prazosin Hcl 1 Mg Capsule) 6 mg PO BEDTIME RAS Trazodone HCl (Trazodone Hcl 50 Mg Tablet) 50 mg PO BEDTIME PRN PRN Reason: Insomnia Last Admin: 08/28/21 22:23 Dose: 50 mg Documented by: Allergies Allergies Allergy/AdvReac Type Severity Reaction Status Date / Time No Known Allergies Allergy Verified 08/27/21 00:53 [No Known Allergies*] Assessment & Plan Assessment & Plan (1) Opioid use disorder, moderate, in early remission, on maintenance therapy, dependence: Status: Acute Code(s): F11.21 - Opioid dependence, in remission Assessment and Plan: on suboxone maintenance; restarted at arrival in ED. referral to rehab. suboxone most recent dosing verified from pharmacy at 8 mg in the morning and 4 mg after dinner ([facility] at [address] [place] [address]). pt picked up week's supply last 08/25. MD attempting to get prescription Hx from clinic rather than pharmacy as pt claims that until recently he had been on a higher dose which worked better for him and his dose was changed not by his clinic but by [facility] staff. per [facility], pt's previous suboxone dose was 8 mg BID, which he has been prescribed here. Currently stable in the unit, compliant with treatment. Naproxen for pain. discharge 09/07, family to section 35 pt. (2) Chronic post-traumatic stress disorder (PTSD): Status: Acute Code(s): F43.12 - Post-traumatic stress disorder, chronic Assessment and Plan: prazosin for nightmares and insomnia. dosing increased from 4 mg QHS to 5 mg QHS as of 08/30, to 6 mg QHS as of 09/01, 8 mg as of 09/04, 10 mg as of 09/05. due to substantial edema noted 09/06, prazosin dosing cut to 6 mg QHS as of 09/06. (3) Cocaine use disorder: Status: Acute Code(s): F14.10 - Cocaine abuse, uncomplicated Assessment and Plan: abstinence. referral to rehab. (4) Alcohol use disorder, moderate, dependence: Status: Acute Code(s): F10.20 - Alcohol dependence, uncomplicated Assessment and Plan: DCed ativan per CIWA 08/12 as pt not scoring more than 1 or 2 on CIWA since admission. refer for rehab. discharge 09/07, family to section 35 pt. (5) B12 deficiency: Status: Acute Code(s): E53.8 - Deficiency of other specified B group vitamins Assessment and Plan: supplementation Plan as above I spent minutes with the patient and/or on the patient floor today, greater than?50% of which was spent counseling/coordinating care. Reason for contiued inpatient stay Substantial Risk for: inability to function and rapid decompensation
[2021-09-06 21:15] VITALS: BP 130/80; PULSE 98; TEMP 36.6; O2SAT 96
[2021-09-06] MEDS: Prazosin HCL 1 MG CAPSULE 6 MG PO (21:29)
[2021-09-06] MEDS: OLANZapine 10 MG TABLET PO (21:30)
[2021-09-07 07:55] VITALS: BP 127/77; PULSE 89; RESP 17; TEMP 36.8; O2SAT 98
[2021-09-07] MEDS: Nicotine 21 MG PATCH.TD24 TRANSDERMA (08:06)
[2021-09-07] MEDS: Buprenorphine/Naloxone 8/2 mg FILM 1 FILM SUBLINGUAL (08:07)
[2021-09-07] MEDS: Multivitamin TABLET 1 TAB PO (08:07)
[2021-09-07] MEDS: Folic Acid 1 MG TABLET PO (08:07)
[2021-09-07] MEDS: Capsaicin 0.025% Cream 60 GM TUBE 1 APPL TOPICAL (08:07)
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
--- NOTE | 2021-09-07 11:20 | PC.NURSE ---
Patient is pleasant and cooperative upon approach. Patient reports that sleep and appetite are good. Patient reported feeling ready for discharge stating I am ready to get out of here. I feel good . Patient denies SI/HI/AH/VH. Patient denies complaints at this time.
== END 2021-09-07 11:15 | disposition home or self-care (01) | DRG 755 ==
LOC: HO.ED 08-28 16:08 → HO.PADLT16 08-28 20:42
PROVIDERS: Registered Nurse; Admitting Provider Psychiatry & Neurology Psychiatry; Emergency Provider Emergency Medicine Emergency Medical Services; Visit Provider Psychiatry & Neurology Psychiatry
DX: F43.12 Post-traumatic stress disorder, chronic (principal); R45.851 Suicidal ideations; E53.8 Deficiency of other specified B group vitamins; F10.20 Alcohol dependence, uncomplicated; F11.20 Opioid dependence, uncomplicated; Z59.02 Unsheltered homelessness; F14.10 Cocaine abuse, uncomplicated; F17.210 Nicotine dependence, cigarettes, uncomplicated; Z71.6 Tobacco abuse counseling; Z20.822 Contact with and (suspected) exposure to COVID-19; Z79.1 Long term (current) use of non-steroidal anti-inflammatories (NSAID); Z79.899 Other long term (current) drug therapy
CPT/HCPCS: 36415; 80053; 80061; 80307; 82607; 82746; 83036; 83735; 84439; 84443; 85025; 87635; 93005; 97161; 99285

== ENCOUNTER 2021-09-18 16:20 | Inpatient (IN) | payer OTHER, MEDICAID, SELFPAY ==
[2021-09-18 16:35] VITALS: BP 166/95; PULSE 92; RESP 18; TEMP 36.7; O2SAT 99; BMI 26.1
[2021-09-18 19:23] LABS: COVID-19 Test Negative (Negative)
[2021-09-18 19:52] LABS: Amphetamine Screen Urine Not Detected (Not Detect); Barbiturates, Urine Not Detected (Not Detect); Benzodiazepines Screen Urine Not Detected (Not Detect); Cannabinoid Screen Urine Not Detected (Not Detect); Cocaine Screen Urine POSITIVE (Not Detect); Fentanyl, urine POSITIVE (Not Detect); Opiate Screen Urine POSITIVE (Not Detect); Phencyclidine Screen Urine Not Detected (Not Detect)
--- NOTE | 2021-09-18 19:54 | ED.PSYCH ---
HPI - Psych General Chief Complaint: Psychiatric Symptoms Stated Complaint: suicidal Time Seen by Provider: 09/18/21 18:49 Source: patient and EMS Mode of arrival: EMS Limitations: no limitations History of Present Illness HPI Narrative: Patient comes to the emergency room complaining of suicidal ideation. Patient states that he is ?tired of living?. Patient states that he has access to a gun and would shoot himself. Patient accepts that he has issues with alcohol abuse. Patient was discharged on September 07 from with a diagnosis of PTSD, chronic opiate disorder, alcohol disorder Related Data Previous Rx's Medication Instructions Recorded buprenorphine 8 mg-naloxone 2 mg 1 film SUBLINGUAL BID 15 Days #30 09/07/21 sublingual film (Suboxone) ea capsaicin 0.025 % topical cream 1 appl TOPICAL QID PRN 30 Days #50 09/07/21 g cyanocobalamin (vitamin B-12) 1,000 mcg PO DAILY 30 Days #30 tab 09/07/21 1,000 mcg tablet (Vitamin B-12) folic acid 1 mg tablet 1 mg PO DAILY 30 Days #30 tab 09/07/21 hydroxyzine HCl 50 mg tablet 50 mg PO BID PRN 30 Days #60 tab 09/07/21 multivitamin (Daily-Ty) 1 tab PO DAILY 30 Days #30 tab 09/07/21 naproxen 500 mg tablet 500 mg PO Q12H 30 Days #60 tab 09/07/21 nicotine (polacrilex) 2 mg gum 2 mg BUCCAL Q2H PRN 30 Days #100 ea 09/07/21 nicotine 21 mg/24 hr daily 21 mg TRANSDERMAL DAILY 28 Days 09/07/21 transdermal patch #28 ea olanzapine 10 mg tablet 10 mg PO BEDTIME 30 Days #30 tab 09/07/21 prazosin 1 mg capsule 3 mg PO BEDTIME 30 Days #90 cap 09/07/21 Allergies Allergy/AdvReac Type Severity Reaction Status Date / Time No Known Allergies Allergy Verified 08/27/21 00:53 [No Known Allergies*] Review of Systems Review of Systems: Constitutional : No Weight loss, No Fever, No Chills, No Night Sweats, No Fatigue, No Malaise ENT/Mouth : No Hearing loss, No Ear Pain, No Nasal Congestion, No Sinus Pain, No Hoarseness, No sore throat, No Rhinorrhea, No Swallowing Difficulty Eyes: No Eye Pain, No Swelling, No Redness, No Foreign Body, No Discharge, No Vision Changes Cardiovascular : No Chest Pain, No SOB, No Dyspnea on Exertion, No Orthopnea, No Edema, No Palpitations Respiratory : No Cough, No Sputum, No Wheezing, No Smoke Exposure, No Dyspnea Gastrointestinal : No Nausea, No Vomiting, No Diarrhea, No Constipation, No abdominal Pain, No Hematochezia, No Melena Genitourinary : no irregular bleeding, No Dysuria, No Urinary Frequency, No Hematuria, No Urinary Incontinence, No Urgency, No Flank Pain, No Urinary Flow Changes, No Hesitancy Musculoskeletal : No joint pain, No Myalgias, No Joint Swelling Skin : No Skin Lesions, No rash Neuro : No Weakness, No Numbness, No Paresthesias, No Loss of Consciousness, No Dizziness, No Headache Psych : Depression, suicidal ideation Heme/Lymph: No Bruising, No Bleeding,No Lymphadenopathy Endocrine : No Polyuria, No Polydipsia, No Temperature Intolerance PMFSH Past Medical History Medical History Atypical bipolar disorder Chronic post-traumatic stress disorder (PTSD) Cocaine use disorder Heroin use Opioid use disorder, moderate, in early remission, on maintenance therapy, dependence Social History Social History Household Members: None Housing: Homeless Housing Other:: pt plans on living with his sister after D/C Do you presently have visiting nurse or other home services: No Alcohol intake: never Patient Tobacco Use Status: Current everyday Tobacco user Tobacco use type: Cigarette Cigarette Packs Per Day: 2 Cigarettes Per Day: 10 Years Smoked: 10 years e-Cigarette/Vaping Use: Never Used Second Hand Smoke Exposure: Yes Substance Use Type: Crack/Cocaine and Opiates Advance Directives: No Advance Directives Information Provided: Yes service: No Sexual orientation: Don't Know Physical Exam Vital Signs: Vital Signs: Last Vital Signs Temp 98.0 F 09/18/21 16:35 Pulse 92 09/18/21 16:35 Resp 18 09/18/21 16:35 BP 166/95 H 09/18/21 16:35 Pulse Ox 99 09/18/21 16:35 BMI result Body Mass Index 26.1 Const: Other: Appearance: Alert. Oriented X3. No acute distress. Eyes: Pupils equal, round and reactive to light. ENT: Pharynx normal. Neck: Normal inspection. Neck supple. No lymph nodes noted. No crepitus CVS: Normal heart rate and rhythm. Pulses normal. Normal S1 and S2 Respiratory: No respiratory distress. Breath sounds normal. No Wheezing. No rales Abdomen: Soft and nontender. No rigidity. No distention. good BS x4 Skin: Skin warm and dry. Normal skin color. Normal skin turgor. Extremities: No lower extremity edema. No Lacerations. No Rash Neuro: Oriented X 3. No motor deficit. No sensory deficit. Moving all extermities. No slurred speech. Cranial nerves 2-12 grossly intact Psych: Somnolent, easily arousable, answering in short sentences Course Course Course Narrative: Patient waiting cc by [facility]. Vital stable. Physician after patient started at 20:02 Patient's urinalysis test positive for opiates, fentanyl, cocaine MDM - Psych Lab Data Labs: Lab Results 09/18/21 09/18/21 Range/Units 19:00 19:29 Urine Opiates Screen POSITIVE H (Not Detect) Urine Fentanyl Screen POSITIVE H (Not Detect) Ur Barbiturates Screen Not Detected (Not Detect) Ur Phencyclidine Scrn Not Detected (Not Detect) Ur Amphetamines Screen Not Detected (Not Detect) U Benzodiazepines Scrn Not Detected (Not Detect) Urine Cocaine Screen POSITIVE H (Not Detect) U Marijuana (THC) Screen Not Detected (Not Detect) COVID-19 ([place]) Negative (Negative) COVID-19 Clin Com See Note Discharge Plan Discharge Clinical Impression: Suicidal ideation Patient Disposition: Still a Patient Prescriptions: No Action nicotine (polacrilex) 2 mg Gum 2 mg buccal Q2H PRN (Reason: Nicotine Cravings) 30 Days Qty: 100 0RF prazosin 1 mg Capsule 3 mg PO BEDTIME 30 Days Qty: 90 0RF olanzapine 10 mg Tablet 10 mg PO BEDTIME 30 Days Qty: 30 0RF nicotine 21 mg/24 hr Patch 24 Hour 21 mg transdermal DAILY 28 Days Qty: 28 0RF multivitamin [Daily-Ty] Tablet 1 tab PO DAILY 30 Days Qty: 30 0RF hydroxyzine HCl 50 mg Tablet 50 mg PO BID PRN (Reason: anxiety) 30 Days Qty: 60 0RF folic acid 1 mg Tablet 1 mg PO DAILY 30 Days Qty: 30 0RF capsaicin 0.025 % Cream 1 appl topical QID PRN (Reason: knee pain) 30 Days Qty: 50 0RF Protocol: Apply to: Apply to: right knee naproxen 500 mg Tablet 500 mg PO Q12H 30 Days Qty: 60 0RF buprenorphine-naloxone [Suboxone] 8-2 mg Film 1 film sublingual BID 15 Days Qty: 30 0RF cyanocobalamin (vitamin B-12) [Vitamin B-12] 1,000 mcg tablet 1,000 mcg PO DAILY 30 Days Qty: 30 0RF
[2021-09-19 05:10] VITALS: PULSE 67
[2021-09-19 05:12] VITALS: BP 157/83; PULSE 67; RESP 17; O2SAT 97
[2021-09-19] MEDS: LORazepam 1 MG TABLET 2 MG PO (06:21)
--- NOTE | 2021-09-19 06:23 | PC.NURSE ---
Patient scored 9 on COW provider notified/ordered ativan 2 mg PO, administered as ordered/pending effect, patient slept most part of the night, patient was assessed by care team, pending disposition, med rec completed/approved/MAR updated, behavior non concerning at this time, VSS, will continue to monitor.
--- NOTE | 2021-09-19 07:16 | PC.NURSE ---
patient appears to remain asleep at present respirations are even and unlabored patient appears in no distress
[2021-09-19] MEDS: hydrOXYzine HCL 50 MG TABLET PO (10:02)
[2021-09-19] MEDS: Buprenorphine/Naloxone 8/2 mg FILM 1 FILM SUBLINGUAL ×2 (10:02→20:48)
[2021-09-19 15:25] VITALS: BP 148/78; PULSE 91; RESP 18; TEMP 36.6; O2SAT 98
[2021-09-19 20:48] VITALS: BP 159/87; PULSE 79; RESP 18; TEMP 36.7; O2SAT 99
[2021-09-19] MEDS: OLANZapine 10 MG TABLET PO (20:48)
[2021-09-19] MEDS: Prazosin HCL 1 MG CAPSULE 3 MG PO (20:48)
[2021-09-19] MEDS: NaPROXEN 500 MG TABLET PO (20:50)
--- NOTE | 2021-09-20 | ECG_ITS ---
Test Reason : MED CLEARANCE Blood Pressure : / mmHG Vent. Rate : 065 BPM Atrial Rate : 065 BPM P-R Int : 158 ms QRS Dur : 084 ms QT Int : 396 ms P-R-T Axes : 056 054 023 degrees QTc Int : 411 ms Normal sinus rhythm Normal ECG When compared with ECG of 28-AUG-2021 16:38, Vent. rate has decreased BY 37 BPM Referred By: Rodrigo Thompson Electronically Signed By:MADELINE GARCIA MD
[2021-09-20 03:25] VITALS: BP 145/81; PULSE 67; RESP 17; TEMP 36.7; O2SAT 100
--- NOTE | 2021-09-20 06:32 | PC.NURSE ---
Patient slept through the night, patient was assessed by care team, pending disposition, patient will be revaluated by care team AM, medication compliant, behavior non concerning at this time, VSS, will continue to monitor.
--- NOTE | 2021-09-20 07:27 | PC.NURSE ---
patient appears to remain asleep at present respirations are even and unlabored, patient appears in no distress
[2021-09-20] MEDS: Multivitamin TABLET 1 TAB PO (08:22)
[2021-09-20] MEDS: Folic Acid 1 MG TABLET PO (08:22)
[2021-09-20] MEDS: Cyanocobalamin (Vitamin B-12) 1,000 MCG TABLET 1000 MCG PO (08:22)
[2021-09-20] MEDS: Nicotine 21 MG PATCH.TD24 TRANSDERMA (08:22)
[2021-09-20] MEDS: NaPROXEN 500 MG TABLET PO ×2 (08:23→20:08)
[2021-09-20] MEDS: Buprenorphine/Naloxone 8/2 mg FILM 1 FILM SUBLINGUAL ×2 (08:23→20:08)
[2021-09-20 15:43] VITALS: BP 105/53; PULSE 82; TEMP 37.1; O2SAT 96
[2021-09-20] MEDS: Nicotine Polacrilex 2 MG GUM BUCCAL (18:47)
[2021-09-20 20:08] VITALS: BP 146/91; PULSE 94; O2SAT 98
[2021-09-20] MEDS: Prazosin HCL 1 MG CAPSULE 3 MG PO (20:08)
[2021-09-20] MEDS: OLANZapine 10 MG TABLET PO (20:08)
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
[2021-09-21 06:00] VITALS: BP 155/84; PULSE 78; RESP 18; TEMP 36.6; O2SAT 98
[2021-09-21] MEDS: NaPROXEN 500 MG TABLET PO ×2 (08:06→21:26)
[2021-09-21] MEDS: Buprenorphine/Naloxone 8/2 mg FILM 1 FILM SUBLINGUAL ×2 (08:06→17:57)
[2021-09-21] MEDS: Nicotine 21 MG PATCH.TD24 TRANSDERMA (08:06)
[2021-09-21] MEDS: Multivitamin TABLET 1 TAB PO (08:06)
[2021-09-21] MEDS: Folic Acid 1 MG TABLET PO (08:06)
[2021-09-21] MEDS: Cyanocobalamin (Vitamin B-12) 1,000 MCG TABLET 1000 MCG PO (10:35)
[2021-09-21 10:36] VITALS: BMI 29.6
[2021-09-21 12:57] LABS: MANUAL DIFF FLAG NO
[2021-09-21 13:10] LABS: Basophils Percent Auto 0.5 % (0-2); Eosinophils Absolute Auto 0.2 X10*3/uL (0.0-0.4); Eosinophils Percent Auto 3.3 % (0-4); Hematocrit 39.4 % (42.0-52.0); Hemoglobin 12.7 g/dl (14.0-18.0); Imm Gran Abs Auto 0.01 X10*3/uL (0.00-0.03); Imm Gran Pct Auto 0.2 % (0.0-0.4); Lymphocytes Absolute Auto 2.1 X10*3/uL (1.2-4.9); Lymphocytes Percent Auto 37.2 % (20-40); Mean Corpuscular HGB Conc 32.2 g/dl (31.0-36.0); Mean Corpuscular Hemoglobin 29.3 pg (27.0-33.0); Mean Platelet Volume 9.8 fL (9.4-12.4); Monocytes Absolute Auto 0.6 X10*3/uL (0.1-1.2); Monocytes Percent Auto 11.2 % (2-11); Neutrophils Absolute Auto 2.7 x10*3/uL (2.0-8.3); Neutrophils Percent Auto 47.6 % (45-73); Platelet Count 213 X10*3/uL (160-400); Red Blood Count 4.33 X10*6/uL (4.60-5.80); White Blood Count 5.7 X10*3/uL (4.8-10.8)
[2021-09-21 13:26] LABS: Alanine Aminotransferase 10 U/L (0-40); Albumin Level 3.5 g/dL (3.5-5.0); Alkaline Phosphatase 59 U/L (39-117); Anion Gap 8 (12-20); Aspartate Amino Transferase 9 U/L (5-37); Bilirubin Direct < 0.2 mg/dL (0.0-0.5); Bilirubin Total 0.2 mg/dL (0.0-1.0); Blood Urea Nitrogen 19 mg/dL (9-16); Carbon Dioxide 33 mmol/L (22-29); Chloride 107 mmol/L (96-108); Creatinine Clr Calc Pharmacy 92.1; Estimated Glomerular Filt Rate > 60; Potassium 3.9 mmol/L (3.3-5.1); Sodium 144 mmol/L (135-145); Total Protein 6.4 g/dL (6.5-8.0)
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
[2021-09-21] MEDS: Prazosin HCL 1 MG CAPSULE 4 MG PO (21:26)
[2021-09-21] MEDS: OLANZapine 10 MG TABLET PO (21:26)
[2021-09-21 21:29] VITALS: BP 140/89; PULSE 83; RESP 18
[2021-09-22 06:00] VITALS: BP 159/89; PULSE 69; TEMP 36.5; O2SAT 99
[2021-09-22] MEDS: Nicotine 21 MG PATCH.TD24 TRANSDERMA (07:59)
[2021-09-22] MEDS: Folic Acid 1 MG TABLET PO (07:59)
[2021-09-22] MEDS: NaPROXEN 500 MG TABLET PO ×2 (07:59→19:45)
[2021-09-22] MEDS: Cyanocobalamin (Vitamin B-12) 1,000 MCG TABLET 1000 MCG PO (07:59)
[2021-09-22] MEDS: Multivitamin TABLET 1 TAB PO (07:59)
[2021-09-22] MEDS: Buprenorphine/Naloxone 8/2 mg FILM 1 FILM SUBLINGUAL ×2 (08:01→17:18)
[2021-09-22 18:00] VITALS: BP 132/76; PULSE 82; RESP 16; TEMP 36.2; O2SAT 98
--- NOTE | 2021-09-22 18:20 | HO.PSYCHPN ---
Subjective Subjective Date of Service: 09/22/21 Reason For Visit: SI Interim History: pt reports mood is better; no SI/HI and no AVH. Sleeping well. Pt says he'd like to try Prozac to see if it could help with ptsd symptoms. Sanitation Worker Cleaning Machinery reviewed risks/side-effects including risk of triggering manic episodes. Pt understands and would like trial. Sanitation Worker Cleaning Machinery reviewed hx and denies any manic type episodes or behaviors; he said he got dx years ago on inpt unit. While sitting in chair during day pt will someting rock w/ eyes closed; he says he's been doing this since childhood as way to self-soothe. Mental Status Exam Mental Status Exam Narrative: Pt is alert and oriented; behavior is cooperative, friendly and calm; patient is not in distress; dressed in casual t-shirt and pants with adequate hygiene; mood is described as ok and affect congruent; eye contact appropriate; Speech is normal rate, volume and prosody and not pressured; no psychomotor agitation/retardation present; thought process is organized and goal directed; Thought content is on tx; otherwise pertinent to relevant topics and without any delusional content, paranoid ideations or grandiosity; denies any SI/HI. There is no evidence of perceptual disturbance. Denies AVH which he says comes and goes. ?Patients insight and judgment appear intact. Diagnostics Vital Signs (24Hr): Vital Signs - 24 hr 09/21/21 21:29 09/22/21 06:00 Temperature 97.7 F Pulse Rate 83 69 Respiratory Rate 18 Blood Pressure 140/89 H 159/89 H Pulse Oximetry 99 BMI result Body Mass Index 29.6 Labs Results: 09/21/21 12:52 09/21/21 12:52 Labs: Laboratory Results - last 48 hr 09/21/21 09/21/21 12:52 12:52 WBC 5.7 RBC 4.33 L Hgb 12.7 L Hct 39.4 L MCV 91.0 MCH 29.3 MCHC 32.2 RDW 13.0 Plt Count 213 MPV 9.8 Immature Gran % (Auto) 0.2 Neut % (Auto) 47.6 Lymph % (Auto) 37.2 [place] % (Auto) 11.2 H Eos % (Auto) 3.3 Baso % (Auto) 0.5 Lymph # (Auto) 2.1 [place] # (Auto) 0.6 Eos # (Auto) 0.2 Baso # (Auto) 0.0 Abs Immat Gran (auto) 0.01 Absolute Neuts (auto) 2.7 Absolute Nucleated RBC 0.000 Nucleated RBC % (auto) 0.0 Sodium 144 Potassium 3.9 Chloride 107 Carbon Dioxide 33 H Anion Gap 8 L BUN 19 H Creatinine 0.99 Estim Creat Clear Calc 92.1 Estimated GFR > 60 Total Bilirubin 0.2 Direct Bilirubin < 0.2 AST 9 ALT 10 Alkaline Phosphatase 59 D Total Protein 6.4 L Albumin 3.5 Medications Medications Current Medications Acetaminophen (Acetaminophen 325 Mg Tablet) 650 mg PO Q6H PRN PRN Reason: Headache/Pain Mild Scale (1-3) Al Hydroxide/Mg Hydroxide (Magnesium Hydrox/Alum Hydrox 30 Ml Oral.Susp) 30 ml PO Q6H PRN PRN Reason: Heartburn/Nausea Buprenorphine/Naloxone (Buprenorphine/Naloxone 8/2 Mg Film) 1 film SUBLINGUAL BID@0800,1800 [facility] Last Admin: 09/22/21 08:01 Dose: 1 film Documented by: Capsaicin (Capsaicin 0.025% Cream 60 Gm Tube) 1 appl TOPICAL QID PRN; Protocol PRN Reason: knee pain Cyanocobalamin (Cyanocobalamin (Vitamin B-12) 1,000 Mcg Tablet) 1,000 mcg PO DAILY [facility] Last Admin: 09/22/21 07:59 Dose: 1,000 mcg Documented by: Folic Acid (Folic Acid 1 Mg Tablet) 1 mg PO DAILY [facility] Last Admin: 09/22/21 07:59 Dose: 1 mg Documented by: Hydroxyzine HCl (Hydroxyzine Hcl 50 Mg Tablet) 50 mg PO BID PRN PRN Reason: anxiety Last Admin: 09/19/21 10:02 Dose: 50 mg Documented by: Hydroxyzine HCl (Hydroxyzine Hcl 25 Mg Tablet) 25 mg PO BEDTIME PRN PRN Reason: Anxiety Magnesium Hydroxide (Milk Of Magnesia 30 Ml Oral.Susp) 30 ml PO DAILY PRN PRN Reason: Constipation Multivitamins/Vitamin C (Multivitamin Tablet) 1 tab PO DAILY [facility] Last Admin: 09/22/21 07:59 Dose: 1 tab Documented by: Naproxen (Naproxen 500 Mg Tablet) 500 mg PO Q12H [facility] Last Admin: 09/22/21 07:59 Dose: 500 mg Documented by: Nicotine (Nicotine 21 Mg Patch.Td24) 21 mg TRANSDERMA DAILY [facility] Last Admin: 09/22/21 07:59 Dose: 21 mg Documented by: Nicotine Polacrilex (Nicotine Polacrilex 2 Mg Gum) 2 mg BUCCAL Q2H PRN PRN Reason: Nicotine Cravings Last Admin: 09/20/21 18:47 Dose: 2 mg Documented by: Nicotine Polacrilex (Nicotine Polacrilex 2 Mg Gum) 4 mg BUCCAL Q2H PRN PRN Reason: Nicotine Cravings Olanzapine (Olanzapine 10 Mg Tablet) 10 mg PO BEDTIME [facility] Last Admin: 09/21/21 21:26 Dose: 10 mg Documented by: Prazosin HCl (Prazosin Hcl 1 Mg Capsule) 4 mg PO BEDTIME [facility]; Protocol Last Admin: 09/21/21 21:26 Dose: 4 mg Documented by: Trazodone HCl (Trazodone Hcl 50 Mg Tablet) 50 mg PO BEDTIME PRN PRN Reason: Insomnia Allergies Allergies Allergy/AdvReac Type Severity Reaction Status Date / Time No Known Allergies Allergy Verified 08/27/21 00:53 [No Known Allergies*] Assessment & Plan Assessment & Plan (1) Chronic post-traumatic stress disorder (PTSD): Status: Acute Code(s): F43.12 - Post-traumatic stress disorder, chronic (2) Opioid use disorder, moderate, in early remission, on maintenance therapy, dependence: Status: Acute Code(s): F11.21 - Opioid dependence, in remission (3) Depressive disorder: Status: Acute Code(s): F32.A - Depression, unspecified Plan Patient is a 56-year-old male with history of PTSD, depression and chronic substance abuse who presents about 2 weeks after recent discharge for resurgence of SI in the face of losing his medication. Patient self presented wanting to make sure his SI did not get out of control and turned into intention for self-harm. Patient restarted on his medication on admission. SI And AH now resolved. Patient to remain on the unit to further stabilize. As patient demonstrates continued stability and good behavioral and impulse control, will discuss dispo options -patient has significant trauma history And PTSD symptoms however is not on an SSRI; patient says he has never tried an SSRI or SNRI. There is some discussion in prior notes whether not patient has a bipolar disorder. However if Zyprexa is mood stabilizing enough, patient may benefit from a trial of SSRI/SNRI. Sanitation Worker Cleaning Machinery discussed this with patient who said he will consider /18 mood improved; no SI/HI or AVH. agrees to trial of prozac to see if can help with PTSD symptoms (understands and accepts risks/side-effexts). Denies hx of manic type behaviors or episodes Plan: CV Q 15 minute checks sTART Prozac 10mg daily for ptsd symptoms Continue Zyprexa 10 mg q.h.s. Continue Suboxone 8/2 mg b.i.d. Will increase prazosin to 4 mg for continued nightmares at patient's request if blood pressure can tolerate Continue other home medications Dispo planning with social Work I spent minutes with the patient and/or on the patient floor today, greater than?50% of which was spent counseling/coordinating care. Reason for contiued inpatient stay Substantial Risk for: med/psych decompensation
[2021-09-22] MEDS: OLANZapine 10 MG TABLET PO (19:45)
[2021-09-22] MEDS: Prazosin HCL 1 MG CAPSULE 4 MG PO (19:46)
[2021-09-22] MEDS: Mineral Oil/Petrolatum,White 106 GM Tube 1 APPL TOPICAL (22:41)
[2021-09-23 06:00] VITALS: BP 135/79; PULSE 77; RESP 18; TEMP 36.3; O2SAT 98
[2021-09-23] MEDS: Multivitamin TABLET 1 TAB PO (08:17)
[2021-09-23] MEDS: Cyanocobalamin (Vitamin B-12) 1,000 MCG TABLET 1000 MCG PO (08:18)
[2021-09-23] MEDS: NaPROXEN 500 MG TABLET PO ×2 (08:18→20:55)
[2021-09-23] MEDS: FLUoxetine HCl 10 MG CAPSULE PO (08:18)
[2021-09-23] MEDS: Buprenorphine/Naloxone 8/2 mg FILM 1 FILM SUBLINGUAL ×2 (08:18→17:03)
[2021-09-23] MEDS: Folic Acid 1 MG TABLET PO (08:18)
[2021-09-23] MEDS: Mineral Oil/Petrolatum,White 106 GM Tube 1 APPL TOPICAL ×2 (08:20→20:58)
[2021-09-23] MEDS: Nicotine 21 MG PATCH.TD24 TRANSDERMA (08:23)
[2021-09-23 08:25] VITALS: BP 147/80; PULSE 70
--- NOTE | 2021-09-23 17:12 | P.PNPSI_ITS ---
Subjective Subjective Date of Service: 09/23/21 Reason For Visit: SI Subjective Notes: Conditional Voluntary Medical Problems Affecting Mental Status: No Interim History: met with patient and discussed with Nursing. Non to assembly instructions writer from prior hospital stays. Reports he was feeling down and depressed and suicidal. Reported feeling ashamed around homelessness and his family finding out. Reports wanting to moved [place] to live with his daughter whom he reports is very supportive. Looks forward to seeing his new grandson. Thankful that he has started Prozac and hopes this will help with his depression and anxiety. 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 Denies current SI. No psychosis. No medication concerns. Feeling well cared for. Sleep okay. Medication Compliance: Yes Side effects from medications: No Attending Groups: Yes Review of Systems Acute medical concerns: No Mental Status Exam Mental Status Exam Narrative: Seen in day room. Rocking at times. Pleasant and engaged. Fair self-care. Endorses feeling anxious and depressed and affect consistent with same. Denies SI. No HI. No agitation. No psychosis. Insight judgment okay Diagnostics Vital Signs (24Hr): Vital Signs - 24 hr 09/22/21 18:00 09/23/21 06:00 09/23/21 08:25 Temperature 97.2 F 97.4 F Pulse Rate 82 77 70 Respiratory Rate 16 18 Blood Pressure 132/76 135/79 147/80 H Pulse Oximetry 98 98 BMI result Body Mass Index 29.6 Labs Results: 09/21/21 12:52 09/21/21 12:52 Medications Medications Current Medications Acetaminophen (Acetaminophen 325 Mg Tablet) 650 mg PO Q6H PRN PRN Reason: Headache/Pain Mild Scale (1-3) Al Hydroxide/Mg Hydroxide (Magnesium Hydrox/Alum Hydrox 30 Ml Oral.Susp) 30 ml PO Q6H PRN PRN Reason: Heartburn/Nausea Buprenorphine/Naloxone (Buprenorphine/Naloxone 8/2 Mg Film) 1 film SUBLINGUAL BID@0800,1800 [facility] Last Admin: 09/23/21 17:03 Dose: 1 film Documented by: Capsaicin (Capsaicin 0.025% Cream 60 Gm Tube) 1 appl TOPICAL QID PRN; Protocol PRN Reason: knee pain Cyanocobalamin (Cyanocobalamin (Vitamin B-12) 1,000 Mcg Tablet) 1,000 mcg PO DAILY [facility] Last Admin: 09/23/21 08:18 Dose: 1,000 mcg Documented by: Fluoxetine HCl (Fluoxetine Hcl 10 Mg Capsule) 10 mg PO DAILY [facility] Last Admin: 09/23/21 08:18 Dose: 10 mg Documented by: Folic Acid (Folic Acid 1 Mg Tablet) 1 mg PO DAILY [facility] Last Admin: 09/23/21 08:18 Dose: 1 mg Documented by: Hydroxyzine HCl (Hydroxyzine Hcl 50 Mg Tablet) 50 mg PO BID PRN PRN Reason: anxiety Last Admin: 09/19/21 10:02 Dose: 50 mg Documented by: Hydroxyzine HCl (Hydroxyzine Hcl 25 Mg Tablet) 25 mg PO BEDTIME PRN PRN Reason: Anxiety Magnesium Hydroxide (Milk Of Magnesia 30 Ml Oral.Susp) 30 ml PO DAILY PRN PRN Reason: Constipation Multi-Ingred Cream/Lotion/Oil/Oint (Mineral Oil/Petrolatum,White 106 Gm Tube) 1 appl TOPICAL BID [facility]; Protocol Last Admin: 09/23/21 08:20 Dose: 1 appl Documented by: Multivitamins/Vitamin C (Multivitamin Tablet) 1 tab PO DAILY [facility] Last Admin: 09/23/21 08:17 Dose: 1 tab Documented by: Naproxen (Naproxen 500 Mg Tablet) 500 mg PO Q12H [facility] Last Admin: 09/23/21 08:18 Dose: 500 mg Documented by: Nicotine (Nicotine 21 Mg Patch.Td24) 21 mg TRANSDERMA DAILY [facility] Last Admin: 09/23/21 08:23 Dose: 21 mg Documented by: Nicotine Polacrilex (Nicotine Polacrilex 2 Mg Gum) 2 mg BUCCAL Q2H PRN PRN Reason: Nicotine Cravings Last Admin: 09/20/21 18:47 Dose: 2 mg Documented by: Nicotine Polacrilex (Nicotine Polacrilex 2 Mg Gum) 4 mg BUCCAL Q2H PRN PRN Reason: Nicotine Cravings Olanzapine (Olanzapine 10 Mg Tablet) 10 mg PO BEDTIME [facility] Last Admin: 09/22/21 19:45 Dose: 10 mg Documented by: Prazosin HCl (Prazosin Hcl 1 Mg Capsule) 4 mg PO BEDTIME [facility]; Protocol Last Admin: 09/22/21 19:46 Dose: 4 mg Documented by: Trazodone HCl (Trazodone Hcl 50 Mg Tablet) 50 mg PO BEDTIME PRN PRN Reason: Insomnia Allergies Allergies Allergy/AdvReac Type Severity Reaction Status Date / Time No Known Allergies Allergy Verified 08/27/21 00:53 [No Known Allergies*] Assessment & Plan Assessment & Plan (1) Chronic post-traumatic stress disorder (PTSD): Status: Acute Code(s): F43.12 - Post-traumatic stress disorder, chronic (2) Opioid use disorder, moderate, in early remission, on maintenance therapy, dependence: Status: Acute Code(s): F11.21 - Opioid dependence, in remission (3) Depressive disorder: Status: Acute Code(s): F32.A - Depression, unspecified Plan Patient is a 56-year-old male with history of PTSD, depression and chronic substance abuse who presents about 2 weeks after recent discharge for resurgence of SI in the face of losing his medication. Patient self presented wanting to make sure his SI did not get out of control and turned into intention for self- harm. Patient restarted on his medication on admission. SI And AH now resolved. Patient to remain on the unit to further stabilize. As patient demonstrates continued stability and good behavioral and impulse control, will discuss dispo options -patient has significant trauma history And PTSD symptoms however is not on an SSRI; patient says he has never tried an SSRI or SNRI. There is some discussion in prior notes whether not patient has a bipolar disorder. However if Zyprexa is mood stabilizing enough, patient may benefit from a trial of SSRI/SNRI. Fulfillment Specialist discussed this with patient who said he will consider 09/22 mood improved; no SI/HI or AVH. agrees to trial of prozac to see if can help with PTSD symptoms (understands and accepts risks/side-effexts). Denies hx of manic type behaviors or episodes Plan: CV Q 15 minute checks sTART Prozac 10mg daily for ptsd symptoms Continue Zyprexa 10 mg q.h.s. Continue Suboxone 8/2 mg b.i.d. Will increase prazosin to 4 mg for continued nightmares at patient's request if blood pressure can tolerate Continue other home medications Dispo planning with social Work 09/23- no changes to primary team treatment plan. Just started Prozac I spent minutes with the patient and/or on the patient floor today, greater than?50% of which was spent counseling/coordinating care. Reason for contiued inpatient stay Substantial Risk for: harm to self
[2021-09-23 20:55] VITALS: BP 150/71; PULSE 87; TEMP 36.8
[2021-09-23] MEDS: Prazosin HCL 1 MG CAPSULE 4 MG PO (20:56)
[2021-09-23] MEDS: OLANZapine 10 MG TABLET PO (20:56)
[2021-09-24 05:06] VITALS: BP 128/70; PULSE 74; RESP 18; TEMP 36.6; O2SAT 97
[2021-09-24] MEDS: Folic Acid 1 MG TABLET PO (08:47)
[2021-09-24] MEDS: FLUoxetine HCl 10 MG CAPSULE PO (08:47)
[2021-09-24] MEDS: Multivitamin TABLET 1 TAB PO (08:47)
[2021-09-24] MEDS: Cyanocobalamin (Vitamin B-12) 1,000 MCG TABLET 1000 MCG PO (08:47)
[2021-09-24] MEDS: Buprenorphine/Naloxone 8/2 mg FILM 1 FILM SUBLINGUAL ×2 (08:47→17:05)
[2021-09-24] MEDS: NaPROXEN 500 MG TABLET PO ×2 (08:47→21:34)
[2021-09-24] MEDS: Nicotine 21 MG PATCH.TD24 TRANSDERMA (08:48)
[2021-09-24] MEDS: Mineral Oil/Petrolatum,White 106 GM Tube 1 APPL TOPICAL (08:49)
--- NOTE | 2021-09-24 12:36 | HO.PSYCHPN ---
Subjective Subjective Date of Service: 09/24/21 Reason For Visit: SI Subjective Notes: Conditional Voluntary Medical Problems Affecting Mental Status: No Interim History: Does report feeling less down and depressed. Still has anxiety. Denies side effects from Prozac we discussed dosing 20 mg. Discussed sleep and how he is symptoms of sleep apnea and should have this evaluated outside of the hospital. Reports feeling positive around same and brought up logistics of doing this in [place] versus [place]. Continues to feel supported by family and still plans on going to [place] to stay with his daughter and get his old job back at [employer]. Denies current SI. No psychosis. Feeling well cared for. Medication Compliance: Yes Side effects from medications: No Attending Groups: Yes Review of Systems Acute medical concerns: No Review of Systems Review of Systems ?Sleep apnea Mental Status Exam Mental Status Exam Narrative: Seen in treatment room. Rocking at times. Pleasant and engaged. Fair self-care. Endorses feeling anxious and depressed and affect consistent with same. Denies SI. No HI. No agitation. No psychosis. Insight judgment okay Diagnostics Vital Signs (24Hr): Vital Signs - 24 hr 09/23/21 20:55 09/24/21 05:06 Temperature 98.2 F 97.9 F Pulse Rate 87 74 Respiratory Rate 18 Blood Pressure 150/71 H 128/70 Pulse Oximetry 97 BMI result Body Mass Index 29.6 Labs Results: 09/21/21 12:52 09/21/21 12:52 Medications Medications Current Medications Acetaminophen (Acetaminophen 325 Mg Tablet) 650 mg PO Q6H PRN PRN Reason: Headache/Pain Mild Scale (1-3) Al Hydroxide/Mg Hydroxide (Magnesium Hydrox/Alum Hydrox 30 Ml Oral.Susp) 30 ml PO Q6H PRN PRN Reason: Heartburn/Nausea Buprenorphine/Naloxone (Buprenorphine/Naloxone 8/2 Mg Film) 1 film SUBLINGUAL BID@0800,1800 [facility] Last Admin: 09/24/21 08:47 Dose: 1 film Documented by: Capsaicin (Capsaicin 0.025% Cream 60 Gm Tube) 1 appl TOPICAL QID PRN; Protocol PRN Reason: knee pain Cyanocobalamin (Cyanocobalamin (Vitamin B-12) 1,000 Mcg Tablet) 1,000 mcg PO DAILY [facility] Last Admin: 09/24/21 08:47 Dose: 1,000 mcg Documented by: Fluoxetine HCl (Fluoxetine Hcl 10 Mg Capsule) 10 mg PO DAILY [facility] Last Admin: 09/24/21 08:47 Dose: 10 mg Documented by: Folic Acid (Folic Acid 1 Mg Tablet) 1 mg PO DAILY [facility] Last Admin: 09/24/21 08:47 Dose: 1 mg Documented by: Hydroxyzine HCl (Hydroxyzine Hcl 50 Mg Tablet) 50 mg PO BID PRN PRN Reason: anxiety Last Admin: 09/19/21 10:02 Dose: 50 mg Documented by: Hydroxyzine HCl (Hydroxyzine Hcl 25 Mg Tablet) 25 mg PO BEDTIME PRN PRN Reason: Anxiety Magnesium Hydroxide (Milk Of Magnesia 30 Ml Oral.Susp) 30 ml PO DAILY PRN PRN Reason: Constipation Multi-Ingred Cream/Lotion/Oil/Oint (Mineral Oil/Petrolatum,White 106 Gm Tube) 1 appl TOPICAL BID [facility]; Protocol Last Admin: 09/24/21 08:49 Dose: 1 appl Documented by: Multivitamins/Vitamin C (Multivitamin Tablet) 1 tab PO DAILY [facility] Last Admin: 09/24/21 08:47 Dose: 1 tab Documented by: Naproxen (Naproxen 500 Mg Tablet) 500 mg PO Q12H [facility] Last Admin: 09/24/21 08:47 Dose: 500 mg Documented by: Nicotine (Nicotine 21 Mg Patch.Td24) 21 mg TRANSDERMA DAILY [facility] Last Admin: 09/24/21 08:48 Dose: 21 mg Documented by: Nicotine Polacrilex (Nicotine Polacrilex 2 Mg Gum) 2 mg BUCCAL Q2H PRN PRN Reason: Nicotine Cravings Last Admin: 09/20/21 18:47 Dose: 2 mg Documented by: Nicotine Polacrilex (Nicotine Polacrilex 2 Mg Gum) 4 mg BUCCAL Q2H PRN PRN Reason: Nicotine Cravings Olanzapine (Olanzapine 10 Mg Tablet) 10 mg PO BEDTIME [facility] Last Admin: 09/23/21 20:56 Dose: 10 mg Documented by: Prazosin HCl (Prazosin Hcl 1 Mg Capsule) 4 mg PO BEDTIME [facility]; Protocol Last Admin: 09/23/21 20:56 Dose: 4 mg Documented by: Trazodone HCl (Trazodone Hcl 50 Mg Tablet) 50 mg PO BEDTIME PRN PRN Reason: Insomnia Allergies Allergies Allergy/AdvReac Type Severity Reaction Status Date / Time No Known Allergies Allergy Verified 08/27/21 00:53 [No Known Allergies*] Assessment & Plan Assessment & Plan (1) Chronic post-traumatic stress disorder (PTSD): Status: Acute Code(s): F43.12 - Post-traumatic stress disorder, chronic (2) Opioid use disorder, moderate, in early remission, on maintenance therapy, dependence: Status: Acute Code(s): F11.21 - Opioid dependence, in remission (3) Depressive disorder: Status: Acute Code(s): F32.A - Depression, unspecified Plan Patient is a 56-year-old male with history of PTSD, depression and chronic substance abuse who presents about 2 weeks after recent discharge for resurgence of SI in the face of losing his medication. Patient self presented wanting to make sure his SI did not get out of control and turned into intention for self-harm. Patient restarted on his medication on admission. SI And AH now resolved. Patient to remain on the unit to further stabilize. As patient demonstrates continued stability and good behavioral and impulse control, will discuss dispo options -patient has significant trauma history And PTSD symptoms however is not on an SSRI; patient says he has never tried an SSRI or SNRI. There is some discussion in prior notes whether not patient has a bipolar disorder. However if Zyprexa is mood stabilizing enough, patient may benefit from a trial of SSRI/SNRI. [employer] discussed this with patient who said he will consider 2/18 mood improved; no SI/HI or AVH. agrees to trial of prozac to see if can help with PTSD symptoms (understands and accepts risks/side-effexts). Denies hx of manic type behaviors or episodes Plan: CV Q 15 minute checks sTART Prozac 10mg daily for ptsd symptoms Continue Zyprexa 10 mg q.h.s. Continue Suboxone 8/2 mg b.i.d. Will increase prazosin to 4 mg for continued nightmares at patient's request if blood pressure can tolerate Continue other home medications Dispo planning with social Work 09/24/2021: Will adjust Prozac 20 mg. I spent minutes with the patient and/or on the patient floor today, greater than?50% of which was spent counseling/coordinating care. Patient educated on: medication risk/benefits Informed Consent: understands Reason for contiued inpatient stay Substantial Risk for: harm to self
[2021-09-24 20:35] VITALS: BP 140/65; PULSE 89; TEMP 36.1
[2021-09-24] MEDS: OLANZapine 10 MG TABLET PO (21:34)
[2021-09-24] MEDS: Prazosin HCL 1 MG CAPSULE 4 MG PO (21:35)
[2021-09-25 06:00] VITALS: BP 142/72; PULSE 78; RESP 18; TEMP 36.4; O2SAT 98
[2021-09-25] MEDS: NaPROXEN 500 MG TABLET PO ×2 (07:40→21:00)
[2021-09-25] MEDS: Folic Acid 1 MG TABLET PO (07:40)
[2021-09-25] MEDS: Cyanocobalamin (Vitamin B-12) 1,000 MCG TABLET 1000 MCG PO (07:40)
[2021-09-25] MEDS: FLUoxetine HCl 20 MG CAPSULE PO (07:41)
[2021-09-25] MEDS: Multivitamin TABLET 1 TAB PO (07:41)
[2021-09-25] MEDS: Buprenorphine/Naloxone 8/2 mg FILM 1 FILM SUBLINGUAL ×2 (07:41→17:16)
[2021-09-25] MEDS: Nicotine 21 MG PATCH.TD24 TRANSDERMA (07:42)
[2021-09-25] MEDS: Mineral Oil/Petrolatum,White 106 GM Tube 1 APPL TOPICAL (07:42)
--- NOTE | 2021-09-25 09:29 | HO.PSYCHPN ---
Subjective Subjective Date of Service: 09/25/21 Reason For Visit: SI Subjective Notes: Conditional Voluntary Interim History: Patient was seen and discussed in rounds today. Records were reviewed. He states that he is feeling better, less depressed and anxious. He is visible. He does report some auditory hallucinations which are at times command in nature. He denies any active suicidal ideations or plans. No complaints or side effects. Medications were reviewed. No changes were made today Medication Compliance: Yes Side effects from medications: No Review of Systems Review of Systems Possible sleep apnea Yes all other systems are reviewed and are negative Mental Status Exam Mental Status Exam Narrative: In today's visit he is alert, oriented and pleasant. Normal speech. Good eye contact. Affect is appropriate and subdued. No SI. Some reports of auditory hallucinations, command in nature at times. No overt delusions. Cognitively intact. Judgment and Diagnostics Vital Signs (24Hr): Vital Signs - 24 hr 09/24/21 20:35 09/25/21 06:00 Temperature 97.0 F 97.6 F Pulse Rate 89 78 Respiratory Rate 18 Blood Pressure 140/65 H 142/72 H Pulse Oximetry 98 BMI result Body Mass Index 29.6 Labs Results: 09/21/21 12:52 09/21/21 12:52 Medications Medications Current Medications Acetaminophen (Acetaminophen 325 Mg Tablet) 650 mg PO Q6H PRN PRN Reason: Headache/Pain Mild Scale (1-3) Al Hydroxide/Mg Hydroxide (Magnesium Hydrox/Alum Hydrox 30 Ml Oral.Susp) 30 ml PO Q6H PRN PRN Reason: Heartburn/Nausea Buprenorphine/Naloxone (Buprenorphine/Naloxone 8/2 Mg Film) 1 film SUBLINGUAL BID@0800,1800 [facility] Last Admin: 09/25/21 07:41 Dose: 1 film Documented by: Capsaicin (Capsaicin 0.025% Cream 60 Gm Tube) 1 appl TOPICAL QID PRN; Protocol PRN Reason: knee pain Cyanocobalamin (Cyanocobalamin (Vitamin B-12) 1,000 Mcg Tablet) 1,000 mcg PO DAILY [facility] Last Admin: 09/25/21 07:40 Dose: 1,000 mcg Documented by: Fluoxetine HCl (Fluoxetine Hcl 20 Mg Capsule) 20 mg PO DAILY [facility] Last Admin: 09/25/21 07:41 Dose: 20 mg Documented by: Folic Acid (Folic Acid 1 Mg Tablet) 1 mg PO DAILY [facility] Last Admin: 09/25/21 07:40 Dose: 1 mg Documented by: Hydroxyzine HCl (Hydroxyzine Hcl 50 Mg Tablet) 50 mg PO BID PRN PRN Reason: anxiety Last Admin: 09/19/21 10:02 Dose: 50 mg Documented by: Hydroxyzine HCl (Hydroxyzine Hcl 25 Mg Tablet) 25 mg PO BEDTIME PRN PRN Reason: Anxiety Magnesium Hydroxide (Milk Of Magnesia 30 Ml Oral.Susp) 30 ml PO DAILY PRN PRN Reason: Constipation Multi-Ingred Cream/Lotion/Oil/Oint (Mineral Oil/Petrolatum,White 106 Gm Tube) 1 appl TOPICAL BID [facility]; Protocol Last Admin: 09/25/21 07:42 Dose: 1 appl Documented by: Multivitamins/Vitamin C (Multivitamin Tablet) 1 tab PO DAILY [facility] Last Admin: 09/25/21 07:41 Dose: 1 tab Documented by: Naproxen (Naproxen 500 Mg Tablet) 500 mg PO Q12H [facility] Last Admin: 09/25/21 07:40 Dose: 500 mg Documented by: Nicotine (Nicotine 21 Mg Patch.Td24) 21 mg TRANSDERMA DAILY [facility] Last Admin: 09/25/21 07:42 Dose: 21 mg Documented by: Nicotine Polacrilex (Nicotine Polacrilex 2 Mg Gum) 2 mg BUCCAL Q2H PRN PRN Reason: Nicotine Cravings Last Admin: 09/20/21 18:47 Dose: 2 mg Documented by: Nicotine Polacrilex (Nicotine Polacrilex 2 Mg Gum) 4 mg BUCCAL Q2H PRN PRN Reason: Nicotine Cravings Olanzapine (Olanzapine 10 Mg Tablet) 10 mg PO BEDTIME [facility] Last Admin: 09/24/21 21:34 Dose: 10 mg Documented by: Prazosin HCl (Prazosin Hcl 1 Mg Capsule) 4 mg PO BEDTIME [facility]; Protocol Last Admin: 09/24/21 21:35 Dose: 4 mg Documented by: Trazodone HCl (Trazodone Hcl 50 Mg Tablet) 50 mg PO BEDTIME PRN PRN Reason: Insomnia Allergies Allergies Allergy/AdvReac Type Severity Reaction Status Date / Time No Known Allergies Allergy Verified 08/27/21 00:53 [No Known Allergies*] Assessment & Plan Assessment & Plan (1) Chronic post-traumatic stress disorder (PTSD): Status: Acute Code(s): F43.12 - Post-traumatic stress disorder, chronic (2) Opioid use disorder, moderate, in early remission, on maintenance therapy, dependence: Status: Acute Code(s): F11.21 - Opioid dependence, in remission (3) Depressive disorder: Status: Acute Code(s): F32.A - Depression, unspecified Plan 09/25/2021: Continue current regimen and plans with no changes today I spent minutes with the patient and/or on the patient floor today, greater than?50% of which was spent counseling/coordinating care. Reason for contiued inpatient stay Substantial Risk for: other
[2021-09-25 16:35] VITALS: BP 137/72; PULSE 91; TEMP 36.4; O2SAT 97
[2021-09-25] MEDS: OLANZapine 10 MG TABLET PO (21:00)
[2021-09-25] MEDS: Prazosin HCL 1 MG CAPSULE 4 MG PO (21:01)
[2021-09-26 06:00] VITALS: BP 125/74; PULSE 67; RESP 18; TEMP 36.7; O2SAT 99
[2021-09-26] MEDS: Nicotine 21 MG PATCH.TD24 TRANSDERMA (08:37)
[2021-09-26] MEDS: NaPROXEN 500 MG TABLET PO ×2 (08:38→21:01)
[2021-09-26] MEDS: Buprenorphine/Naloxone 8/2 mg FILM 1 FILM SUBLINGUAL ×2 (08:38→17:16)
[2021-09-26] MEDS: Multivitamin TABLET 1 TAB PO (08:39)
[2021-09-26] MEDS: Folic Acid 1 MG TABLET PO (08:39)
[2021-09-26] MEDS: FLUoxetine HCl 20 MG CAPSULE PO (08:39)
[2021-09-26] MEDS: Cyanocobalamin (Vitamin B-12) 1,000 MCG TABLET 1000 MCG PO (08:39)
[2021-09-26] MEDS: Mineral Oil/Petrolatum,White 106 GM Tube 1 APPL TOPICAL ×2 (08:41→21:03)
--- NOTE | 2021-09-26 17:36 | HO.PSYCHPN ---
Subjective Subjective Date of Service: 09/26/21 Reason For Visit: SI Interim History: Patient reports that his mood is good he denies any SI. He said that some auditory hallucinations did intermittently come back over the weekend but he says they were at a very low level and not bothersome; they have not returned since weekend. He also had a few flashbacks which chronically come and go, but again said that they are less frequent/intense. Patient has had trouble sleeping however designer/writer reviewed medications and patient does not want any medication change. He overall feels stable but would like to get into a aftercare program for substance abuse. Mental Status Exam Mental Status Exam Narrative: Pt is alert and oriented; behavior is cooperative, friendly and calm; patient is not in distress; dressed in casual t-shirt and pants with adequate hygiene; mood is described as good and affect congruent; eye contact appropriate; Speech is normal rate, volume and prosody and not pressured; no psychomotor agitation/retardation present; thought process is organized and goal directed; Thought content is on tx; otherwise pertinent to relevant topics and without any delusional content, paranoid ideations or grandiosity; denies any SI/HI. There is no evidence of perceptual disturbance. Denies AVH ?Patients insight and judgment appear intact. Diagnostics Vital Signs (24Hr): Vital Signs - 24 hr 09/26/21 06:00 Temperature 98.0 F Pulse Rate 67 Respiratory Rate 18 Blood Pressure 125/74 Pulse Oximetry 99 BMI result Body Mass Index 29.6 Labs Results: 09/21/21 12:52 09/21/21 12:52 Medications Medications Current Medications Acetaminophen (Acetaminophen 325 Mg Tablet) 650 mg PO Q6H PRN PRN Reason: Headache/Pain Mild Scale (1-3) Al Hydroxide/Mg Hydroxide (Magnesium Hydrox/Alum Hydrox 30 Ml Oral.Susp) 30 ml PO Q6H PRN PRN Reason: Heartburn/Nausea Buprenorphine/Naloxone (Buprenorphine/Naloxone 8/2 Mg Film) 1 film SUBLINGUAL BID@0800,1800 [facility] Last Admin: 09/26/21 17:16 Dose: 1 film Documented by: Capsaicin (Capsaicin 0.025% Cream 60 Gm Tube) 1 appl TOPICAL QID PRN; Protocol PRN Reason: knee pain Cyanocobalamin (Cyanocobalamin (Vitamin B-12) 1,000 Mcg Tablet) 1,000 mcg PO DAILY [facility] Last Admin: 09/26/21 08:39 Dose: 1,000 mcg Documented by: Fluoxetine HCl (Fluoxetine Hcl 20 Mg Capsule) 20 mg PO DAILY [facility] Last Admin: 09/26/21 08:39 Dose: 20 mg Documented by: Folic Acid (Folic Acid 1 Mg Tablet) 1 mg PO DAILY [facility] Last Admin: 09/26/21 08:39 Dose: 1 mg Documented by: Hydroxyzine HCl (Hydroxyzine Hcl 50 Mg Tablet) 50 mg PO BID PRN PRN Reason: anxiety Last Admin: 09/19/21 10:02 Dose: 50 mg Documented by: Hydroxyzine HCl (Hydroxyzine Hcl 25 Mg Tablet) 25 mg PO BEDTIME PRN PRN Reason: Anxiety Magnesium Hydroxide (Milk Of Magnesia 30 Ml Oral.Susp) 30 ml PO DAILY PRN PRN Reason: Constipation Multi-Ingred Cream/Lotion/Oil/Oint (Mineral Oil/Petrolatum,White 106 Gm Tube) 1 appl TOPICAL BID [facility]; Protocol Last Admin: 09/26/21 08:41 Dose: 1 appl Documented by: Multivitamins/Vitamin C (Multivitamin Tablet) 1 tab PO DAILY [facility] Last Admin: 09/26/21 08:39 Dose: 1 tab Documented by: Naproxen (Naproxen 500 Mg Tablet) 500 mg PO Q12H [facility] Last Admin: 09/26/21 08:38 Dose: 500 mg Documented by: Nicotine (Nicotine 21 Mg Patch.Td24) 21 mg TRANSDERMA DAILY [facility] Last Admin: 09/26/21 08:37 Dose: 21 mg Documented by: Nicotine Polacrilex (Nicotine Polacrilex 2 Mg Gum) 2 mg BUCCAL Q2H PRN PRN Reason: Nicotine Cravings Last Admin: 09/20/21 18:47 Dose: 2 mg Documented by: Nicotine Polacrilex (Nicotine Polacrilex 2 Mg Gum) 4 mg BUCCAL Q2H PRN PRN Reason: Nicotine Cravings Olanzapine (Olanzapine 10 Mg Tablet) 10 mg PO BEDTIME [facility] Last Admin: 09/25/21 21:00 Dose: 10 mg Documented by: Prazosin HCl (Prazosin Hcl 1 Mg Capsule) 4 mg PO BEDTIME [facility]; Protocol Last Admin: 09/25/21 21:01 Dose: 4 mg Documented by: Trazodone HCl (Trazodone Hcl 50 Mg Tablet) 50 mg PO BEDTIME PRN PRN Reason: Insomnia Allergies Allergies Allergy/AdvReac Type Severity Reaction Status Date / Time No Known Allergies Allergy Verified 08/27/21 00:53 [No Known Allergies*] Assessment & Plan Assessment & Plan (1) Chronic post-traumatic stress disorder (PTSD): Status: Acute Code(s): F43.12 - Post-traumatic stress disorder, chronic (2) Opioid use disorder, moderate, in early remission, on maintenance therapy, dependence: Status: Acute Code(s): F11.21 - Opioid dependence, in remission (3) Depressive disorder: Status: Acute Code(s): F32.A - Depression, unspecified Plan Patient is a 56-year-old male with history of PTSD, depression and chronic substance abuse who presents about 2 weeks after recent discharge for resurgence of SI in the face of losing his medication. Patient self presented wanting to make sure his SI did not get out of control and turned into intention for self-harm.? Patient restarted on his medication on admission.? SI And AH now resolved. Patient to remain on the unit to further stabilize.? As patient demonstrates continued stability and good behavioral and impulse control, will discuss dispo options -patient has significant trauma history And PTSD symptoms however is not on an SSRI; patient says he has never tried an SSRI or SNRI.? There is some discussion in prior notes whether not patient has a bipolar disorder.? However if Zyprexa is mood stabilizing enough, patient may benefit from a trial of SSRI/SNRI.? Parts Consultant discussed this with patient who said he will consider 09/22 mood improved; no SI/HI or AVH. agrees to trial of prozac to see if can help with PTSD symptoms (understands and accepts risks/side-effexts). Denies hx of manic type behaviors or episodes 09/24/2021: Will adjust Prozac 20 mg. 09/26 patient reports mood is overall good and denies any SI; patient had some auditory hallucinations over the weekend but says they have since resolved and they have not been at a bothersome level. He overall feels stable but would like to discharge to a substance abuse program. Patient does not feel the need to have any medications changed at this time Plan: CV? Q 15 minute checks continue Prozac 20mg daily for ptsd symptoms Continue Zyprexa 10 mg q.h.s. Continue Suboxone 2 mg b.i.d. Will increase prazosin to 4 mg for continued nightmares at patient's request if blood pressure can tolerate Continue other home medications Dispo planning with social Work I spent minutes with the patient and/or on the patient floor today, greater than?50% of which was spent counseling/coordinating care. Reason for contiued inpatient stay Substantial Risk for: stable for discharge
[2021-09-26 18:00] VITALS: BP 132/81; PULSE 98; RESP 18; TEMP 37; O2SAT 97
[2021-09-26] MEDS: Magnesium Hydrox/Alum Hydrox 30 ML ORAL.SUSP PO (19:24)
[2021-09-26] MEDS: Prazosin HCL 1 MG CAPSULE 4 MG PO (21:01)
[2021-09-26] MEDS: OLANZapine 10 MG TABLET PO (21:01)
[2021-09-26] MEDS: Capsaicin 0.025% Cream 60 GM TUBE 1 APPL TOPICAL (21:03)
[2021-09-27 06:00] VITALS: BP 146/74; PULSE 69; RESP 16; TEMP 36.1; O2SAT 99
[2021-09-27] MEDS: Buprenorphine/Naloxone 8/2 mg FILM 1 FILM SUBLINGUAL ×2 (07:46→19:06)
[2021-09-27] MEDS: FLUoxetine HCl 20 MG CAPSULE PO (08:48)
[2021-09-27] MEDS: Nicotine 21 MG PATCH.TD24 TRANSDERMA (08:48)
[2021-09-27] MEDS: Folic Acid 1 MG TABLET PO (08:48)
[2021-09-27] MEDS: NaPROXEN 500 MG TABLET PO ×2 (08:48→22:09)
[2021-09-27] MEDS: Multivitamin TABLET 1 TAB PO (08:48)
[2021-09-27] MEDS: Cyanocobalamin (Vitamin B-12) 1,000 MCG TABLET 1000 MCG PO (08:48)
[2021-09-27] MEDS: Mineral Oil/Petrolatum,White 106 GM Tube 1 APPL TOPICAL (08:49)
[2021-09-27] MEDS: Buprenorphine/Naloxone 4/1 mg FILM 1 FILM SUBLINGUAL (17:08)
[2021-09-27 22:00] VITALS: BP 135/73; PULSE 85; TEMP 35.8
[2021-09-27] MEDS: Prazosin HCL 1 MG CAPSULE 4 MG PO (22:08)
[2021-09-27] MEDS: OLANZapine 10 MG TABLET PO (22:09)
[2021-09-27] MEDS: Capsaicin 0.025% Cream 60 GM TUBE 1 APPL TOPICAL (22:15)
--- NOTE | 2021-09-27 23:09 | HO.PSYCHPN ---
Subjective Subjective Date of Service: 09/27/21 Reason For Visit: SI Interim History: Patient reports that his mood is overall good and denies any SI. He still has intermittent AH but says it is tolerable and Able to be ignored. Patient does say that he has continued cravings to use and that he has had some dreams about using. He asked if there is a chance he could get more Suboxone during the day to mitigate this craving and says he has been on higher dose in the past. Enamel Applier discussed medication risks/side effects and patient said if it helps him be sober it is worth the increased dosing. He feels that increasing his morning dose above 8 mg is too much for him and prefers it broken up throughout the day. Patient agrees to getting 8/2 mg in the morning, 4/1 mg after lunch and then another 8/2 mg at bedtime. Enamel Applier also agrees that the benefit of reducing cravings and potentially improving patient's chance to remain sober far outweigh risks of increased dose. Otherwise patient says he feels medications are working and he is ready to discharge to an aftercare program. Mental Status Exam Mental Status Exam Narrative: Pt is alert and oriented; behavior is cooperative, friendly and calm; patient is not in distress; dressed in casual t-shirt and pants with adequate hygiene; mood is described as good and affect congruent; eye contact appropriate; Speech is normal rate, volume and prosody and not pressured; no psychomotor agitation/retardation present; thought process is organized and goal directed; Thought content is on tx; otherwise pertinent to relevant topics and without any delusional content, paranoid ideations or grandiosity; denies any SI/HI. There is no evidence of perceptual disturbance. Intermittent but tolerable AH which patient says is chronic. ?Patients insight and judgment appear intact. Diagnostics Vital Signs (24Hr): Vital Signs - 24 hr 09/27/21 06:00 09/27/21 22:00 Temperature 96.9 F 96.5 F L Pulse Rate 69 85 Respiratory Rate 16 Blood Pressure 146/74 H 135/73 Pulse Oximetry 99 BMI result Body Mass Index 29.6 Labs Results: 09/21/21 12:52 09/21/21 12:52 Medications Medications Current Medications Acetaminophen (Acetaminophen 325 Mg Tablet) 650 mg PO Q6H PRN PRN Reason: Headache/Pain Mild Scale (1-3) Al Hydroxide/Mg Hydroxide (Magnesium Hydrox/Alum Hydrox 30 Ml Oral.Susp) 30 ml PO Q6H PRN PRN Reason: Heartburn/Nausea Last Admin: 09/26/21 19:24 Dose: 30 ml Documented by: Buprenorphine/Naloxone (Buprenorphine/Naloxone 4/1 Mg Film) 1 film SUBLINGUAL DAILY@1300 [facility] Buprenorphine/Naloxone (Buprenorphine/Naloxone 8/2 Mg Film) 1 film SUBLINGUAL BID@0800,1700 [facility] Last Admin: 09/27/21 19:06 Dose: 1 film Documented by: Capsaicin (Capsaicin 0.025% Cream 60 Gm Tube) 1 appl TOPICAL QID PRN; Protocol PRN Reason: knee pain Last Admin: 09/27/21 22:15 Dose: 1 appl Documented by: Cyanocobalamin (Cyanocobalamin (Vitamin B-12) 1,000 Mcg Tablet) 1,000 mcg PO DAILY [facility] Last Admin: 09/27/21 08:48 Dose: 1,000 mcg Documented by: Fluoxetine HCl (Fluoxetine Hcl 20 Mg Capsule) 20 mg PO DAILY [facility] Last Admin: 09/27/21 08:48 Dose: 20 mg Documented by: Folic Acid (Folic Acid 1 Mg Tablet) 1 mg PO DAILY [facility] Last Admin: 09/27/21 08:48 Dose: 1 mg Documented by: Hydroxyzine HCl (Hydroxyzine Hcl 50 Mg Tablet) 50 mg PO BID PRN PRN Reason: anxiety Last Admin: 09/19/21 10:02 Dose: 50 mg Documented by: Hydroxyzine HCl (Hydroxyzine Hcl 25 Mg Tablet) 25 mg PO BEDTIME PRN PRN Reason: Anxiety Magnesium Hydroxide (Milk Of Magnesia 30 Ml Oral.Susp) 30 ml PO DAILY PRN PRN Reason: Constipation Multi-Ingred Cream/Lotion/Oil/Oint (Mineral Oil/Petrolatum,White 106 Gm Tube) 1 appl TOPICAL BID [facility]; Protocol Last Admin: 09/27/21 22:14 Dose: Not Given Documented by: Multivitamins/Vitamin C (Multivitamin Tablet) 1 tab PO DAILY [facility] Last Admin: 09/27/21 08:48 Dose: 1 tab Documented by: Naproxen (Naproxen 500 Mg Tablet) 500 mg PO Q12H [facility] Last Admin: 09/27/21 22:09 Dose: 500 mg Documented by: Nicotine (Nicotine 21 Mg Patch.Td24) 21 mg TRANSDERMA DAILY [facility] Last Admin: 09/27/21 08:48 Dose: 21 mg Documented by: Nicotine Polacrilex (Nicotine Polacrilex 2 Mg Gum) 2 mg BUCCAL Q2H PRN PRN Reason: Nicotine Cravings Last Admin: 09/20/21 18:47 Dose: 2 mg Documented by: Nicotine Polacrilex (Nicotine Polacrilex 2 Mg Gum) 4 mg BUCCAL Q2H PRN PRN Reason: Nicotine Cravings Olanzapine (Olanzapine 10 Mg Tablet) 10 mg PO BEDTIME [facility] Last Admin: 09/27/21 22:09 Dose: 10 mg Documented by: Prazosin HCl (Prazosin Hcl 1 Mg Capsule) 4 mg PO BEDTIME [facility]; Protocol Last Admin: 09/27/21 22:08 Dose: 4 mg Documented by: Trazodone HCl (Trazodone Hcl 50 Mg Tablet) 50 mg PO BEDTIME PRN PRN Reason: Insomnia Allergies Allergies Allergy/AdvReac Type Severity Reaction Status Date / Time No Known Allergies Allergy Verified 08/27/21 00:53 [No Known Allergies*] Assessment & Plan Assessment & Plan (1) Chronic post-traumatic stress disorder (PTSD): Status: Acute Code(s): F43.12 - Post-traumatic stress disorder, chronic (2) Opioid use disorder, moderate, in early remission, on maintenance therapy, dependence: Status: Acute Code(s): F11.21 - Opioid dependence, in remission (3) Depressive disorder: Status: Acute Code(s): F32.A - Depression, unspecified Plan Patient is a 56-year-old male with history of PTSD, depression and chronic substance abuse who presents about 2 weeks after recent discharge for resurgence of SI in the face of losing his medication. Patient self presented wanting to make sure his SI did not get out of control and turned into intention for self-harm.? Patient restarted on his medication on admission.? SI And AH now resolved. Patient to remain on the unit to further stabilize.? As patient demonstrates continued stability and good behavioral and impulse control, will discuss dispo options -patient has significant trauma history And PTSD symptoms however is not on an SSRI; patient says he has never tried an SSRI or SNRI.? There is some discussion in prior notes whether not patient has a bipolar disorder.? However if Zyprexa is mood stabilizing enough, patient may benefit from a trial of SSRI/SNRI.? Enamel Applier discussed this with patient who said he will consider 09/22 mood improved; no SI/HI or AVH. agrees to trial of prozac to see if can help with PTSD symptoms (understands and accepts risks/side-effexts). Denies hx of manic type behaviors or episodes 09/24/2021: Will adjust Prozac 20 mg. 09/26 patient reports mood is overall good and denies any SI; patient had some auditory hallucinations over the weekend but says they have since resolved and they have not been at a bothersome level. He overall feels stable but would like to discharge to a substance abuse program. Patient does not feel the need to have any medications changed at this time 09/27 Patient remains stable, good mood, no SI and low level auditory hallucinations that he says he can ignore and are not bothersome. Patient does say that he has continued cravings to use and that he has had some dreams about using. He asked if there is a chance he could get more Suboxone during the day to mitigate this craving and says he has been on higher dose in the past. Enamel Applier discussed medication risks/side effects and patient said if it helps him be sober it is worth the increased dosing. He feels that increasing his morning dose above 8 mg is too much for him and prefers it broken up throughout the day. Patient agrees to getting 8/2 mg in the morning, 4/1 mg after lunch and then another 8/2 mg at bedtime. Enamel Applier also agrees that the benefit of reducing cravings and potentially improving patient's chance to remain sober far outweigh risks of increased dose -patient remains stable. He is not in imminent risk for harm to self or others and is appropriate for discharge. Given patient's history of substance abuse and risk of relapse junior technical writer agrees that it is in patient's best interest to remain on the unit to see if he can get into a substance abuse program post discharge. Plan: CV? Q 15 minute checks continue Prozac 20mg daily for ptsd symptoms Continue Zyprexa 10 mg q.h.s. Suboxone 8/2 mg b.i.d.\ ADDING Suboxone 4/1mg afternoon for cravings (is junior technical writer's opinion that potential benefit far outweighs risk of increased dosing; patient fully agrees) Will increase prazosin to 4 mg for continued nightmares at patient's request if blood pressure can tolerate Continue other home medications Dispo planning with social Work I spent minutes with the patient and/or on the patient floor today, greater than?50% of which was spent counseling/coordinating care. Reason for contiued inpatient stay Substantial Risk for: stable for discharge
[2021-09-28 07:50] VITALS: BP 137/75; PULSE 83; RESP 16; TEMP 36.7; O2SAT 97
[2021-09-28] MEDS: FLUoxetine HCl 20 MG CAPSULE PO (08:27)
[2021-09-28] MEDS: Cyanocobalamin (Vitamin B-12) 1,000 MCG TABLET 1000 MCG PO (08:27)
[2021-09-28] MEDS: Folic Acid 1 MG TABLET PO (08:27)
[2021-09-28] MEDS: Multivitamin TABLET 1 TAB PO (08:27)
[2021-09-28] MEDS: Buprenorphine/Naloxone 8/2 mg FILM 1 FILM SUBLINGUAL ×2 (08:27→18:33)
[2021-09-28] MEDS: NaPROXEN 500 MG TABLET PO ×2 (08:27→20:37)
[2021-09-28] MEDS: Nicotine 21 MG PATCH.TD24 TRANSDERMA (08:28)
[2021-09-28 09:49] VITALS: BMI 29.0
[2021-09-28] MEDS: Buprenorphine/Naloxone 4/1 mg FILM 1 FILM SUBLINGUAL (13:31)
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
[2021-09-28 18:00] VITALS: BP 125/73; PULSE 82
[2021-09-28] MEDS: Prazosin HCL 1 MG CAPSULE 4 MG PO (20:37)
[2021-09-28] MEDS: OLANZapine 10 MG TABLET PO (20:37)
[2021-09-28] MEDS: Nicotine Polacrilex 2 MG GUM 4 MG BUCCAL (20:41)
[2021-09-28 20:42] VITALS: BP 137/82; PULSE 94
[2021-09-29 06:00] VITALS: BP 141/84; PULSE 94; TEMP 36.6; O2SAT 99
[2021-09-29] MEDS: Buprenorphine/Naloxone 8/2 mg FILM 1 FILM SUBLINGUAL ×2 (08:48→18:20)
[2021-09-29] MEDS: Multivitamin TABLET 1 TAB PO (08:48)
[2021-09-29] MEDS: Cyanocobalamin (Vitamin B-12) 1,000 MCG TABLET 1000 MCG PO (08:48)
[2021-09-29] MEDS: Folic Acid 1 MG TABLET PO (08:48)
[2021-09-29] MEDS: NaPROXEN 500 MG TABLET PO ×2 (08:48→21:52)
[2021-09-29] MEDS: FLUoxetine HCl 20 MG CAPSULE PO (08:48)
[2021-09-29] MEDS: Nicotine 21 MG PATCH.TD24 TRANSDERMA (08:50)
[2021-09-29] MEDS: Mineral Oil/Petrolatum,White 106 GM Tube 1 APPL TOPICAL (08:55)
--- NOTE | 2021-09-29 10:26 | HO.PSYCHPN ---
Subjective Subjective Date of Service: 09/29/21 Reason For Visit: SI Interim History: pt appreciates increased Prozac; feels good. no complaints, no requests. Feels ready to discharge saturday. No SI/HI; minimal AH Mental Status Exam Mental Status Exam Narrative: Pt is alert and oriented; behavior is cooperative, friendly and calm; patient is not in distress; dressed in casual t-shirt and pants with adequate hygiene; mood is described as good and affect congruent; eye contact appropriate; Speech is normal rate, volume and prosody and not pressured; no psychomotor agitation/retardation present; thought process is organized and goal directed; Thought content is on tx; otherwise pertinent to relevant topics and without any delusional content, paranoid ideations or grandiosity; denies any SI/HI. There is no evidence of perceptual disturbance. Intermittent but tolerable AH which patient says is chronic. ?Patients insight and judgment appear intact. Diagnostics Vital Signs (24Hr): Vital Signs - 24 hr 09/28/21 18:00 09/28/21 20:42 09/29/21 06:00 Temperature 97.9 F Pulse Rate 82 94 94 Blood Pressure 125/73 137/82 141/84 H Pulse Oximetry 99 BMI result Body Mass Index 29.0 Labs Results: 09/21/21 12:52 09/21/21 12:52 Medications Medications Current Medications Acetaminophen (Acetaminophen 325 Mg Tablet) 650 mg PO Q6H PRN PRN Reason: Headache/Pain Mild Scale (1-3) Al Hydroxide/Mg Hydroxide (Magnesium Hydrox/Alum Hydrox 30 Ml Oral.Susp) 30 ml PO Q6H PRN PRN Reason: Heartburn/Nausea Last Admin: 09/26/21 19:24 Dose: 30 ml Documented by: Buprenorphine/Naloxone (Buprenorphine/Naloxone 4/1 Mg Film) 1 film SUBLINGUAL DAILY@1300 RAS Last Admin: 09/28/21 13:31 Dose: 1 film Documented by: Buprenorphine/Naloxone (Buprenorphine/Naloxone 8/2 Mg Film) 1 film SUBLINGUAL BID@0800,1700 RAS Last Admin: 09/29/21 08:48 Dose: 1 film Documented by: Capsaicin (Capsaicin 0.025% Cream 60 Gm Tube) 1 appl TOPICAL QID PRN; Protocol PRN Reason: knee pain Last Admin: 09/27/21 22:15 Dose: 1 appl Documented by: Cyanocobalamin (Cyanocobalamin (Vitamin B-12) 1,000 Mcg Tablet) 1,000 mcg PO DAILY [facility] Last Admin: 09/29/21 08:48 Dose: 1,000 mcg Documented by: Fluoxetine HCl (Fluoxetine Hcl 10 Mg Capsule) 30 mg PO DAILY [facility] Folic Acid (Folic Acid 1 Mg Tablet) 1 mg PO DAILY [facility] Last Admin: 09/29/21 08:48 Dose: 1 mg Documented by: Hydroxyzine HCl (Hydroxyzine Hcl 50 Mg Tablet) 50 mg PO BID PRN PRN Reason: anxiety Last Admin: 09/19/21 10:02 Dose: 50 mg Documented by: Hydroxyzine HCl (Hydroxyzine Hcl 25 Mg Tablet) 25 mg PO BEDTIME PRN PRN Reason: Anxiety Magnesium Hydroxide (Milk Of Magnesia 30 Ml Oral.Susp) 30 ml PO DAILY PRN PRN Reason: Constipation Multi-Ingred Cream/Lotion/Oil/Oint (Mineral Oil/Petrolatum,White 106 Gm Tube) 1 appl TOPICAL BID [facility]; Protocol Last Admin: 09/29/21 08:55 Dose: 1 appl Documented by: Multivitamins/Vitamin C (Multivitamin Tablet) 1 tab PO DAILY [facility] Last Admin: 09/29/21 08:48 Dose: 1 tab Documented by: Naproxen (Naproxen 500 Mg Tablet) 500 mg PO Q12H [facility] Last Admin: 09/29/21 08:48 Dose: 500 mg Documented by: Nicotine (Nicotine 21 Mg Patch.Td24) 21 mg TRANSDERMA DAILY [facility] Last Admin: 09/29/21 08:50 Dose: 21 mg Documented by: Nicotine Polacrilex (Nicotine Polacrilex 2 Mg Gum) 2 mg BUCCAL Q2H PRN PRN Reason: Nicotine Cravings Last Admin: 09/20/21 18:47 Dose: 2 mg Documented by: Nicotine Polacrilex (Nicotine Polacrilex 2 Mg Gum) 4 mg BUCCAL Q2H PRN PRN Reason: Nicotine Cravings Last Admin: 09/28/21 20:41 Dose: 4 mg Documented by: Olanzapine (Olanzapine 10 Mg Tablet) 10 mg PO BEDTIME [facility] Last Admin: 09/28/21 20:37 Dose: 10 mg Documented by: Prazosin HCl (Prazosin Hcl 1 Mg Capsule) 4 mg PO BEDTIME [facility]; Protocol Last Admin: 09/28/21 20:37 Dose: 4 mg Documented by: Trazodone HCl (Trazodone Hcl 50 Mg Tablet) 50 mg PO BEDTIME PRN PRN Reason: Insomnia Allergies Allergies Allergy/AdvReac Type Severity Reaction Status Date / Time No Known Allergies Allergy Verified 08/27/21 00:53 [No Known Allergies*] Assessment & Plan Assessment & Plan (1) Chronic post-traumatic stress disorder (PTSD): Status: Acute Code(s): F43.12 - Post-traumatic stress disorder, chronic (2) Opioid use disorder, moderate, in early remission, on maintenance therapy, dependence: Status: Acute Code(s): F11.21 - Opioid dependence, in remission (3) Depressive disorder: Status: Acute Code(s): F32.A - Depression, unspecified Plan Patient is a 56-year-old male with history of PTSD, depression and chronic substance abuse who presents about 2 weeks after recent discharge for resurgence of SI in the face of losing his medication. Patient self presented wanting to make sure his SI did not get out of control and turned into intention for self-harm.? Patient restarted on his medication on admission.? SI And AH now resolved. Patient to remain on the unit to further stabilize.? As patient demonstrates continued stability and good behavioral and impulse control, will discuss dispo options -patient has significant trauma history And PTSD symptoms however is not on an SSRI; patient says he has never tried an SSRI or SNRI.? There is some discussion in prior notes whether not patient has a bipolar disorder.? However if Zyprexa is mood stabilizing enough, patient may benefit from a trial of SSRI/SNRI.? Senior Pricing Analyst discussed this with patient who said he will consider 09/22 mood improved; no SI/HI or AVH. agrees to trial of prozac to see if can help with PTSD symptoms (understands and accepts risks/side-effexts). Denies hx of manic type behaviors or episodes 09/24/2021: Will adjust Prozac 20 mg. 09/26 patient reports mood is overall good and denies any SI; patient had some auditory hallucinations over the weekend but says they have since resolved and they have not been at a bothersome level. He overall feels stable but would like to discharge to a substance abuse program. Patient does not feel the need to have any medications changed at this time 09/27 Patient remains stable, good mood, no SI and low level auditory hallucinations that he says he can ignore and are not bothersome. Patient does say that he has continued cravings to use and that he has had some dreams about using. He asked if there is a chance he could get more Suboxone during the day to mitigate this craving and says he has been on higher dose in the past. Senior Pricing Analyst discussed medication risks/side effects and patient said if it helps him be sober it is worth the increased dosing. He feels that increasing his morning dose above 8 mg is too much for him and prefers it broken up throughout the day. Patient agrees to getting 8/2 mg in the morning, 4/1 mg after lunch and then another 8/2 mg at bedtime. Senior Pricing Analyst also agrees that the benefit of reducing cravings and potentially improving patient's chance to remain sober far outweigh risks of increased dose -patient remains stable. He is not in imminent risk for harm to self or others and is appropriate for discharge. Given patient's history of substance abuse and risk of relapse insurance underwriter sales agrees that it is in patient's best interest to remain on the unit to see if he can get into a substance abuse program post discharge. Plan: CV? Q 15 minute checks INCREASEd to Prozac 30mg daily for ptsd symptoms Continue Zyprexa 10 mg q.h.s. Suboxone 8/2 mg b.i.d.\ Suboxone 4/1mg afternoon for cravings (is insurance underwriter sales's opinion that potential benefit far outweighs risk of increased dosing; patient fully agrees) prazosin to 4 mg for continued nightmares at patient's request if blood pressure can tolerate Continue other home medications Dispo planning with social Work I spent minutes with the patient and/or on the patient floor today, greater than?50% of which was spent counseling/coordinating care. Patient educated on: medication risk/benefits Informed Consent: understands Reason for contiued inpatient stay Substantial Risk for: stable for discharge
[2021-09-29] MEDS: FLUoxetine HCl 10 MG CAPSULE PO (11:14)
[2021-09-29] MEDS: Buprenorphine/Naloxone 4/1 mg FILM 1 FILM SUBLINGUAL (13:41)
[2021-09-29 21:40] VITALS: BP 113/59; PULSE 82; TEMP 36.7
[2021-09-29] MEDS: Prazosin HCL 1 MG CAPSULE 4 MG PO (21:52)
[2021-09-29] MEDS: OLANZapine 10 MG TABLET PO (21:52)
[2021-09-30 06:00] VITALS: BP 119/77; PULSE 75; RESP 18; TEMP 36.3; O2SAT 99
[2021-09-30] MEDS: Multivitamin TABLET 1 TAB PO (08:22)
[2021-09-30] MEDS: FLUoxetine HCl 10 MG CAPSULE 30 MG PO (08:22)
[2021-09-30] MEDS: Cyanocobalamin (Vitamin B-12) 1,000 MCG TABLET 1000 MCG PO (08:22)
[2021-09-30] MEDS: NaPROXEN 500 MG TABLET PO ×2 (08:22→21:44)
[2021-09-30] MEDS: Buprenorphine/Naloxone 8/2 mg FILM 1 FILM SUBLINGUAL ×2 (08:23→18:40)
[2021-09-30] MEDS: Nicotine 21 MG PATCH.TD24 TRANSDERMA (08:23)
[2021-09-30] MEDS: Folic Acid 1 MG TABLET PO (08:23)
[2021-09-30] MEDS: Mineral Oil/Petrolatum,White 106 GM Tube 1 APPL TOPICAL (08:27)
--- NOTE | 2021-09-30 11:41 | HO.PSYCHPN ---
Subjective Subjective Date of Service: 09/30/21 Reason For Visit: SI Subjective Notes: Conditional Voluntary Interim History: Patient states he is feeling better his somewhat flat dysphoric mildly irritable has been social on the unit her feel safe for discharge to his daughters in a couple of days feels Suboxone is helpful Mental Status Exam Mental Status Exam Narrative: Pt is alert and oriented; behavior is cooperative, friendly and calm; patient is not in distress; dressed in casual t-shirt and pants with adequate hygiene; mood is described as good and affect congruent; eye contact appropriate; Speech is normal rate, volume and prosody and not pressured; no psychomotor agitation/retardation present; thought process is organized and goal directed; Thought content is on tx; otherwise pertinent to relevant topics and without any delusional content, paranoid ideations or grandiosity; denies any SI/HI. There is no evidence of perceptual disturbance. Intermittent but tolerable AH which patient says is chronic. ?Patients insight and judgment appear intact. Diagnostics Vital Signs (24Hr): Vital Signs - 24 hr 09/29/21 21:40 09/30/21 06:00 Temperature 98.0 F 97.4 F Pulse Rate 82 75 Respiratory Rate 18 Blood Pressure 113/59 L 119/77 Pulse Oximetry 99 BMI result Body Mass Index 29.0 Labs Results: 09/21/21 12:52 09/21/21 12:52 Medications Medications Current Medications Acetaminophen (Acetaminophen 325 Mg Tablet) 650 mg PO Q6H PRN PRN Reason: Headache/Pain Mild Scale (1-3) Al Hydroxide/Mg Hydroxide (Magnesium Hydrox/Alum Hydrox 30 Ml Oral.Susp) 30 ml PO Q6H PRN PRN Reason: Heartburn/Nausea Last Admin: 09/26/21 19:24 Dose: 30 ml Documented by: Buprenorphine/Naloxone (Buprenorphine/Naloxone 4/1 Mg Film) 1 film SUBLINGUAL DAILY@1300 RAS Last Admin: 09/29/21 13:41 Dose: 1 film Documented by: Buprenorphine/Naloxone (Buprenorphine/Naloxone 8/2 Mg Film) 1 film SUBLINGUAL BID@0800,1700 RAS Last Admin: 09/30/21 08:23 Dose: 1 film Documented by: Capsaicin (Capsaicin 0.025% Cream 60 Gm Tube) 1 appl TOPICAL QID PRN; Protocol PRN Reason: knee pain Last Admin: 09/27/21 22:15 Dose: 1 appl Documented by: Cyanocobalamin (Cyanocobalamin (Vitamin B-12) 1,000 Mcg Tablet) 1,000 mcg PO DAILY [facility] Last Admin: 09/30/21 08:22 Dose: 1,000 mcg Documented by: Fluoxetine HCl (Fluoxetine Hcl 10 Mg Capsule) 30 mg PO DAILY [facility] Last Admin: 09/30/21 08:22 Dose: 30 mg Documented by: Folic Acid (Folic Acid 1 Mg Tablet) 1 mg PO DAILY [facility] Last Admin: 09/30/21 08:23 Dose: 1 mg Documented by: Hydroxyzine HCl (Hydroxyzine Hcl 50 Mg Tablet) 50 mg PO BID PRN PRN Reason: anxiety Last Admin: 09/19/21 10:02 Dose: 50 mg Documented by: Hydroxyzine HCl (Hydroxyzine Hcl 25 Mg Tablet) 25 mg PO BEDTIME PRN PRN Reason: Anxiety Magnesium Hydroxide (Milk Of Magnesia 30 Ml Oral.Susp) 30 ml PO DAILY PRN PRN Reason: Constipation Multi-Ingred Cream/Lotion/Oil/Oint (Mineral Oil/Petrolatum,White 106 Gm Tube) 1 appl TOPICAL BID [facility]; Protocol Last Admin: 09/30/21 08:27 Dose: 1 appl Documented by: Multivitamins/Vitamin C (Multivitamin Tablet) 1 tab PO DAILY [facility] Last Admin: 09/30/21 08:22 Dose: 1 tab Documented by: Naproxen (Naproxen 500 Mg Tablet) 500 mg PO Q12H [facility] Last Admin: 09/30/21 08:22 Dose: 500 mg Documented by: Nicotine (Nicotine 21 Mg Patch.Td24) 21 mg TRANSDERMA DAILY [facility] Last Admin: 09/30/21 08:23 Dose: 21 mg Documented by: Nicotine Polacrilex (Nicotine Polacrilex 2 Mg Gum) 2 mg BUCCAL Q2H PRN PRN Reason: Nicotine Cravings Last Admin: 09/20/21 18:47 Dose: 2 mg Documented by: Nicotine Polacrilex (Nicotine Polacrilex 2 Mg Gum) 4 mg BUCCAL Q2H PRN PRN Reason: Nicotine Cravings Last Admin: 09/28/21 20:41 Dose: 4 mg Documented by: Olanzapine (Olanzapine 10 Mg Tablet) 10 mg PO BEDTIME [facility] Last Admin: 09/29/21 21:52 Dose: 10 mg Documented by: Prazosin HCl (Prazosin Hcl 1 Mg Capsule) 4 mg PO BEDTIME [facility]; Protocol Last Admin: 09/29/21 21:52 Dose: 4 mg Documented by: Trazodone HCl (Trazodone Hcl 50 Mg Tablet) 50 mg PO BEDTIME PRN PRN Reason: Insomnia Allergies Allergies Allergy/AdvReac Type Severity Reaction Status Date / Time No Known Allergies Allergy Verified 08/27/21 00:53 [No Known Allergies*] Assessment & Plan Assessment & Plan (1) Chronic post-traumatic stress disorder (PTSD): Status: Acute Code(s): F43.12 - Post-traumatic stress disorder, chronic (2) Opioid use disorder, moderate, in early remission, on maintenance therapy, dependence: Status: Acute Code(s): F11.21 - Opioid dependence, in remission (3) Depressive disorder: Status: Acute Code(s): F32.A - Depression, unspecified Plan Patient is a 56-year-old male with history of PTSD, depression and chronic substance abuse who presents about 2 weeks after recent discharge for resurgence of SI in the face of losing his medication. Patient self presented wanting to make sure his SI did not get out of control and turned into intention for self-harm.? Patient restarted on his medication on admission.? SI And AH now resolved. Patient to remain on the unit to further stabilize.? As patient demonstrates continued stability and good behavioral and impulse control, will discuss dispo options -patient has significant trauma history And PTSD symptoms however is not on an SSRI; patient says he has never tried an SSRI or SNRI.? There is some discussion in prior notes whether not patient has a bipolar disorder.? However if Zyprexa is mood stabilizing enough, patient may benefit from a trial of SSRI/SNRI.? Kosher Dietary Service Manager discussed this with patient who said he will consider 09/22 mood improved; no SI/HI or AVH. agrees to trial of prozac to see if can help with PTSD symptoms (understands and accepts risks/side-effexts). Denies hx of manic type behaviors or episodes 09/24/2021: Will adjust Prozac 20 mg. 09/26 patient reports mood is overall good and denies any SI; patient had some auditory hallucinations over the weekend but says they have since resolved and they have not been at a bothersome level. He overall feels stable but would like to discharge to a substance abuse program. Patient does not feel the need to have any medications changed at this time 09/27 Patient remains stable, good mood, no SI and low level auditory hallucinations that he says he can ignore and are not bothersome. Patient does say that he has continued cravings to use and that he has had some dreams about using. He asked if there is a chance he could get more Suboxone during the day to mitigate this craving and says he has been on higher dose in the past. Kosher Dietary Service Manager discussed medication risks/side effects and patient said if it helps him be sober it is worth the increased dosing. He feels that increasing his morning dose above 8 mg is too much for him and prefers it broken up throughout the day. Patient agrees to getting 8/2 mg in the morning, 4/1 mg after lunch and then another 8/2 mg at bedtime. Kosher Dietary Service Manager also agrees that the benefit of reducing cravings and potentially improving patient's chance to remain sober far outweigh risks of increased dose -patient remains stable. He is not in imminent risk for harm to self or others and is appropriate for discharge. Given patient's history of substance abuse and risk of relapse job specification writer agrees that it is in patient's best interest to remain on the unit to see if he can get into a substance abuse program post discharge. Plan: CV? Q 15 minute checks INCREASEd to Prozac 30mg daily for ptsd symptoms Continue Zyprexa 10 mg q.h.s. Suboxone 8/2 mg b.i.d.\ Suboxone 4/1mg afternoon for cravings (is job specification writer's opinion that potential benefit far outweighs risk of increased dosing; patient fully agrees) prazosin to 4 mg for continued nightmares at patient's request if blood pressure can tolerate Continue other home medications Dispo planning with social Work Assessment and plan to 01/22/2022 Patient seen chart reviewed case reviewed with nursing staff patient mildly irritable future oriented states he feels more stable and looking forward to potential discharge to his daughter's [facility]. Feels Suboxone is helpful I spent minutes with the patient and/or on the patient floor today, greater than?50% of which was spent counseling/coordinating care. Reason for contiued inpatient stay Substantial Risk for: harm to self and rapid decompensation
[2021-09-30] MEDS: Buprenorphine/Naloxone 4/1 mg FILM 1 FILM SUBLINGUAL (13:17)
[2021-09-30 18:00] VITALS: BP 124/75; PULSE 75; RESP 16; TEMP 36.2
[2021-09-30] MEDS: OLANZapine 10 MG TABLET PO (21:44)
[2021-09-30] MEDS: Prazosin HCL 1 MG CAPSULE 4 MG PO (21:44)
[2021-10-01 06:10] VITALS: BP 112/64; PULSE 87; RESP 16; TEMP 36.9; O2SAT 97
[2021-10-01] MEDS: NaPROXEN 500 MG TABLET PO ×2 (09:28→22:49)
[2021-10-01] MEDS: Mineral Oil/Petrolatum,White 106 GM Tube 1 APPL TOPICAL ×2 (09:28→22:53)
[2021-10-01] MEDS: Cyanocobalamin (Vitamin B-12) 1,000 MCG TABLET 1000 MCG PO (09:28)
[2021-10-01] MEDS: Nicotine 21 MG PATCH.TD24 TRANSDERMA (09:28)
[2021-10-01] MEDS: Buprenorphine/Naloxone 8/2 mg FILM 1 FILM SUBLINGUAL ×2 (09:28→18:22)
[2021-10-01] MEDS: FLUoxetine HCl 10 MG CAPSULE 30 MG PO (09:28)
[2021-10-01] MEDS: Multivitamin TABLET 1 TAB PO (09:29)
[2021-10-01] MEDS: Folic Acid 1 MG TABLET PO (09:29)
[2021-10-01] MEDS: Capsaicin 0.025% Cream 60 GM TUBE 1 APPL TOPICAL (09:34)
--- NOTE | 2021-10-01 13:12 | P.PNPSI_ITS ---
Subjective Subjective Date of Service: 10/01/21 Reason For Visit: SI Subjective Notes: Conditional Voluntary Guardianship: No Interim History: Patient come social in the milieu not overly agitated or combative. He is future oriented looking forward to spending time with his daughter he feels Suboxone quite helpful Mental Status Exam Mental Status Exam Narrative: Pt is alert and oriented; behavior is cooperative, friendly and calm; patient is not in distress; dressed in hospital garb mood is described as good and affect congruent; eye contact appropriate; Speech is normal rate, volume and prosody and not pressured; no psychomotor agitation/retardation present; thought process is organized and goal directed; Thought content is on tx; otherwise pertinent to relevant topics and without any delusional content, paranoid ideations or grandiosity; denies any SI/HI. There is no evidence of perceptual disturbance. Intermittent but tolerable AH which patient says is chronic. ?Patients insight and judgment appear intact. Diagnostics Vital Signs (24Hr): Vital Signs - 24 hr 09/30/21 18:00 10/01/21 06:10 Temperature 97.2 F 98.4 F Pulse Rate 75 87 Respiratory Rate 16 16 Blood Pressure 124/75 112/64 Pulse Oximetry 97 BMI result Body Mass Index 29.0 Labs Results: 09/21/21 12:52 09/21/21 12:52 Medications Medications Current Medications Acetaminophen (Acetaminophen 325 Mg Tablet) 650 mg PO Q6H PRN PRN Reason: Headache/Pain Mild Scale (1-3) Al Hydroxide/Mg Hydroxide (Magnesium Hydrox/Alum Hydrox 30 Ml Oral.Susp) 30 ml PO Q6H PRN PRN Reason: Heartburn/Nausea Last Admin: 09/26/21 19:24 Dose: 30 ml Documented by: Buprenorphine/Naloxone (Buprenorphine/Naloxone 4/1 Mg Film) 1 film SUBLINGUAL DAILY@1300 RAS Last Admin: 09/30/21 13:17 Dose: 1 film Documented by: Buprenorphine/Naloxone (Buprenorphine/Naloxone 8/2 Mg Film) 1 film SUBLINGUAL BID@0800,1700 RAS Last Admin: 10/01/21 09:28 Dose: 1 film Documented by: Capsaicin (Capsaicin 0.025% Cream 60 Gm Tube) 1 appl TOPICAL QID PRN; Protocol PRN Reason: knee pain Last Admin: 10/01/21 09:34 Dose: 1 appl Documented by: Cyanocobalamin (Cyanocobalamin (Vitamin B-12) 1,000 Mcg Tablet) 1,000 mcg PO DAILY [facility] Last Admin: 10/01/21 09:28 Dose: 1,000 mcg Documented by: Fluoxetine HCl (Fluoxetine Hcl 10 Mg Capsule) 30 mg PO DAILY [facility] Last Admin: 10/01/21 09:28 Dose: 30 mg Documented by: Folic Acid (Folic Acid 1 Mg Tablet) 1 mg PO DAILY [facility] Last Admin: 10/01/21 09:29 Dose: 1 mg Documented by: Hydroxyzine HCl (Hydroxyzine Hcl 50 Mg Tablet) 50 mg PO BID PRN PRN Reason: anxiety Last Admin: 09/19/21 10:02 Dose: 50 mg Documented by: Hydroxyzine HCl (Hydroxyzine Hcl 25 Mg Tablet) 25 mg PO BEDTIME PRN PRN Reason: Anxiety Magnesium Hydroxide (Milk Of Magnesia 30 Ml Oral.Susp) 30 ml PO DAILY PRN PRN Reason: Constipation Multi-Ingred Cream/Lotion/Oil/Oint (Mineral Oil/Petrolatum,White 106 Gm Tube) 1 appl TOPICAL BID [facility]; Protocol Last Admin: 10/01/21 09:28 Dose: 1 appl Documented by: Multivitamins/Vitamin C (Multivitamin Tablet) 1 tab PO DAILY [facility] Last Admin: 10/01/21 09:29 Dose: 1 tab Documented by: Naproxen (Naproxen 500 Mg Tablet) 500 mg PO Q12H [facility] Last Admin: 10/01/21 09:28 Dose: 500 mg Documented by: Nicotine (Nicotine 21 Mg Patch.Td24) 21 mg TRANSDERMA DAILY [facility] Last Admin: 10/01/21 09:28 Dose: 21 mg Documented by: Nicotine Polacrilex (Nicotine Polacrilex 2 Mg Gum) 2 mg BUCCAL Q2H PRN PRN Reason: Nicotine Cravings Last Admin: 09/20/21 18:47 Dose: 2 mg Documented by: Nicotine Polacrilex (Nicotine Polacrilex 2 Mg Gum) 4 mg BUCCAL Q2H PRN PRN Reason: Nicotine Cravings Last Admin: 09/28/21 20:41 Dose: 4 mg Documented by: Olanzapine (Olanzapine 10 Mg Tablet) 10 mg PO BEDTIME [facility] Last Admin: 09/30/21 21:44 Dose: 10 mg Documented by: Prazosin HCl (Prazosin Hcl 1 Mg Capsule) 4 mg PO BEDTIME [facility]; Protocol Last Admin: 09/30/21 21:44 Dose: 4 mg Documented by: Trazodone HCl (Trazodone Hcl 50 Mg Tablet) 50 mg PO BEDTIME PRN PRN Reason: Insomnia Allergies Allergies Allergy/AdvReac Type Severity Reaction Status Date / Time No Known Allergies Allergy Verified 08/27/21 00:53 [No Known Allergies*] Assessment & Plan Assessment & Plan (1) Chronic post-traumatic stress disorder (PTSD): Status: Acute Code(s): F43.12 - Post-traumatic stress disorder, chronic (2) Opioid use disorder, moderate, in early remission, on maintenance therapy, dependence: Status: Acute Code(s): F11.21 - Opioid dependence, in remission (3) Depressive disorder: Status: Acute Code(s): F32.A - Depression, unspecified Plan Patient is a 56-year-old male with history of PTSD, depression and chronic substance abuse who presents about 2 weeks after recent discharge for resurgence of SI in the face of losing his medication. Patient self presented wanting to make sure his SI did not get out of control and turned into intention for self- harm.? Patient restarted on his medication on admission.? SI And AH now resolved. Patient to remain on the unit to further stabilize.? As patient demonstrates continued stability and good behavioral and impulse control, will discuss dispo options -patient has significant trauma history And PTSD symptoms however is not on an SSRI; patient says he has never tried an SSRI or SNRI.? There is some discussion in prior notes whether not patient has a bipolar disorder.? However if Zyprexa is mood stabilizing enough, patient may benefit from a trial of SSRI/SNRI.? Foundry Patternmaker discussed this with patient who said he will consider 09/22 mood improved; no SI/HI or AVH. agrees to trial of prozac to see if can help with PTSD symptoms (understands and accepts risks/side-effexts). Denies hx of manic type behaviors or episodes 09/24/2021: Will adjust Prozac 20 mg. 09/26 patient reports mood is overall good and denies any SI; patient had some auditory hallucinations over the weekend but says they have since resolved and they have not been at a bothersome level. He overall feels stable but would like to discharge to a substance abuse program. Patient does not feel the need to have any medications changed at this time 09/27 Patient remains stable, good mood, no SI and low level auditory hallucinations that he says he can ignore and are not bothersome. Patient does say that he has continued cravings to use and that he has had some dreams about using. He asked if there is a chance he could get more Suboxone during the day to mitigate this craving and says he has been on higher dose in the past. Foundry Patternmaker discussed medication risks/side effects and patient said if it helps him be sober it is worth the increased dosing. He feels that increasing his morning dose above 8 mg is too much for him and prefers it broken up throughout the day. Patient agrees to getting 8/2 mg in the morning, 4/1 mg after lunch and then another 8/2 mg at bedtime. Foundry Patternmaker also agrees that the benefit of reducing cravings and potentially improving patient's chance to remain sober far outweigh risks of increased dose -patient remains stable. He is not in imminent risk for harm to self or others and is appropriate for discharge. Given patient's history of substance abuse and risk of relapse telegraphic typewriter mechanic agrees that it is in patient's best interest to remain on the unit to see if he can get into a substance abuse program post discharge. Plan: CV? Q 15 minute checks INCREASEd to Prozac 30mg daily for ptsd symptoms Continue Zyprexa 10 mg q.h.s. Suboxone 8/2 mg b.i.d.\ Suboxone 4/1mg afternoon for cravings (is telegraphic typewriter mechanic's opinion that potential benefit far outweighs risk of increased dosing; patient fully agrees) prazosin to 4 mg for continued nightmares at patient's request if blood pressure can tolerate Continue other home medications Dispo planning with social Work Assessment and plan to 09/30/2021 Patient seen chart reviewed case reviewed with nursing staff patient mildly irritable future oriented states he feels more stable and looking forward to potential discharge to his daughter's [facility]. Feels Suboxone is helpful 10/01/21 Patient remains essentially stable somewhat flat he feels safe for discharge and again will be living with his daughter feels current treatment helpful no SI I spent minutes with the patient and/or on the patient floor today, greater than?50% of which was spent counseling/coordinating care. Patient educated on: substance abuse Informed Consent: understands Reason for contiued inpatient stay Substantial Risk for: rapid decompensation
[2021-10-01] MEDS: Buprenorphine/Naloxone 4/1 mg FILM 1 FILM SUBLINGUAL (14:07)
[2021-10-01 18:00] VITALS: BP 123/65; PULSE 81; TEMP 36.7; O2SAT 96
[2021-10-01] MEDS: OLANZapine 10 MG TABLET PO (22:49)
[2021-10-01] MEDS: Prazosin HCL 1 MG CAPSULE 4 MG PO (22:49)
[2021-10-02 06:00] VITALS: BP 116/72; PULSE 86; RESP 18; TEMP 36.6; O2SAT 98
[2021-10-02] MEDS: FLUoxetine HCl 10 MG CAPSULE 30 MG PO (08:52)
[2021-10-02] MEDS: Folic Acid 1 MG TABLET PO (08:52)
[2021-10-02] MEDS: Multivitamin TABLET 1 TAB PO (08:52)
[2021-10-02] MEDS: Nicotine 21 MG PATCH.TD24 TRANSDERMA (08:52)
[2021-10-02] MEDS: NaPROXEN 500 MG TABLET PO (08:52)
[2021-10-02] MEDS: Cyanocobalamin (Vitamin B-12) 1,000 MCG TABLET 1000 MCG PO (08:52)
[2021-10-02] MEDS: Buprenorphine/Naloxone 8/2 mg FILM 1 FILM SUBLINGUAL (08:52)
--- NOTE | 2021-10-02 09:43 | PM.PSYDC ---
DS: Providers Provider Date of Service: 10/02/21 Date of admission: 09/20/21 22:53 Date of discharge: 10/02/21 Primary care physician: [facility] Attending physician on admission: Lito Haile Attending physician on discharge: Lito Haile DS: Diagnosis Discharge Diagnosis (1) Chronic post-traumatic stress disorder (PTSD): Status: Acute (2) Opioid use disorder, moderate, in early remission, on maintenance therapy, dependence: Status: Acute (3) Depressive disorder: Status: Acute DS: Medications Discharge Medications Home Medications: Previous Rx's Medication Instructions Recorded buprenorphine 4 mg-naloxone 1 mg 1 film SUBLINGUAL DAILY@1300 19 10/02/21 sublingual film (Suboxone) Days #19 ea buprenorphine 8 mg-naloxone 2 mg 1 film SUBLINGUAL BID 19 Days #28 10/02/21 sublingual film (Suboxone) ea capsaicin 0.025 % topical cream 1 appl TOPICAL QID PRN 30 Days #50 10/02/21 g cyanocobalamin (vitamin B-12) 1,000 mcg PO DAILY 30 Days #30 tab 10/02/21 1,000 mcg tablet (Vitamin B-12) fluoxetine 10 mg capsule 30 mg PO DAILY 30 Days #90 cap 10/02/21 folic acid 1 mg tablet 1 mg PO DAILY 30 Days #30 tab 10/02/21 multivitamin (Daily-Ty) 1 tab PO DAILY 30 Days #30 tab 10/02/21 naproxen 500 mg tablet 500 mg PO Q12H PRN 30 Days #60 tab 10/02/21 nicotine (polacrilex) 2 mg gum 2 mg BUCCAL Q2H PRN 30 Days #100 ea 10/02/21 nicotine 21 mg/24 hr daily 21 mg TRANSDERMAL DAILY 28 Days 10/02/21 transdermal patch #28 ea olanzapine 10 mg tablet 10 mg PO BEDTIME 30 Days #30 tab 10/02/21 prazosin 2 mg capsule 4 mg PO BEDTIME 30 Days #60 cap 10/02/21 Mental Status Exam Mental Status Exam Narrative: Pt is alert and oriented; behavior is cooperative, friendly and calm; patient is not in distress; dressed in casual cloths, adequately groomed; mood is described as good and affect congruent; eye contact appropriate; Speech is normal rate, volume and prosody and not pressured; no psychomotor agitation/retardation present; thought process is organized and goal directed; Thought content is on tx and discharge; otherwise pertinent to relevant topics and without any delusional content, paranoid ideations or grandiosity; denies any SI/HI. There is no evidence of perceptual disturbance. Intermittent but tolerable AH which patient says is chronic. ?Patients insight and judgment are intact. DS: Summary Hospital Course Hospital Course: Patient is a 56-year-old male with history of PTSD, depression and chronic substance abuse who presents about 2 weeks after recent discharge for resurgence of SI in the face of losing his medication. Patient self presented wanting to make sure his SI did not get out of control and turned into intention for self-harm.? Patient restarted on his medication on admission.? SI And AH now resolved. Patient to remain on the unit to further stabilize.? As patient demonstrates continued stability and good behavioral and impulse control, will discuss dispo options -patient has significant trauma history And PTSD symptoms however is not on an SSRI; patient says he has never tried an SSRI or SNRI.? There is some discussion in prior notes whether not patient has a bipolar disorder.? However if Zyprexa is mood stabilizing enough, patient may benefit from a trial of SSRI/SNRI.? Specialty Development Consultant discussed this with patient who said he will consider On admission and with med adjustments, his mood significantly improved and all active SI full resolved. Pt had agreed to trial of prozac to see if can help with PTSD symptoms (understands and accepts risks/side-effexts). Denies hx of manic type behaviors or episodes; Prozac titrated to good effect. And patient continued to report that his mood is overall good; patient denied SI which would intermittently pop up in a passive way but was ephemoral and able to be ignored. Auditory hallucinations also mostly resolved; though they to would intermittently pop up when stressed they became short-lived and not bothersome. Patient was engaged in treatment, attending groups and forthcoming during sessions. He was appropriate with peers and staff demonstrated good behavioral impulse control throughout his stay on the unit. Patient intermittently had cravings and some dreams about using and asked if he can get increase of Suboxone as he had been on a higher dose in the past. Specialty Development Consultant discussed medication risks/side effects and patient said if it helps him be sober it is worth the increased dosing.? He feels that increasing his morning dose above 8 mg is too much for him and prefers it broken up throughout the day.? Patient agrees to getting 8/2 mg in the morning, 4/1 mg after lunch and then another 8/2 mg at bedtime. Specialty Development Consultant also agrees that the benefit of reducing cravings and potentially improving patient's chance to remain sober far outweigh risks of increased dose. Patient felt stable and safe for discharge wanting to go to either a substance abuse program or to his daughters house in [place].? He was tolerating his medications well, was in overall good mood, without SI and was not in imminent risk for harm to self or others. Patient's request for discharge was honored Time spent discussing smoking cessation with patient: 3 to 10 minutes Status at Discharge Functional status at discharge: independent ambulation Overall status at discharge: patient is back to baseline Time Spent with Patient Time attestation: Total time spent providing and/or coordinating discharge services: Time spent: Greater than 30 minutes Discharge Plan Discharge Patient Disposition: Xfer Other Discharge Diagnosis: MDD, recurrent, severe with psychotic features (r/o schizoaffective) Referrals: Suboxone: Chayo Alex ([facility]) [Other] - 10/20/21 11:30 am Therapy Intake: Odalys Carter ([facility]) [Other] - 10/02/21 2:30 pm (*Telehealth*) Psych Prescriber: Chayo Zhang ([facility]) [Other] - 10/27/21 11:30 am (*Telehealth- you will be emailed instructions to download an chago they use for sessions. You will then get an email with a link to join your appointment. ) Psych Prescriber: Chayo Zhang ([facility]) [Other] - 11/24/21 10:30 am (*Telehealth- you will be emailed a link to join the appointment ) Marie Celaya MD [Physician] - 10/09/21 9:00 am (IN OFFICE) Discharge Medications: New prazosin 2 mg capsule 4 mg PO BEDTIME 30 Days Qty: 60 0RF buprenorphine-naloxone [Suboxone] 4-1 mg Film 1 film sublingual DAILY@1300 19 Days Qty: 19 0RF fluoxetine 10 mg Capsule 30 mg PO DAILY 30 Days Qty: 90 0RF Continued multivitamin [Daily-Ty] Tablet 1 tab PO DAILY 30 Days Qty: 30 0RF nicotine (polacrilex) 2 mg Gum 2 mg buccal Q2H PRN (Reason: Nicotine Cravings) 30 Days Qty: 100 0RF cyanocobalamin (vitamin B-12) [Vitamin B-12] 1,000 mcg tablet 1,000 mcg PO DAILY 30 Days Qty: 30 0RF olanzapine 10 mg Tablet 10 mg PO BEDTIME 30 Days Qty: 30 0RF nicotine 21 mg/24 hr Patch 24 Hour 21 mg transdermal DAILY 28 Days Qty: 28 0RF folic acid 1 mg Tablet 1 mg PO DAILY 30 Days Qty: 30 0RF capsaicin 0.025 % Cream 1 appl topical QID PRN (Reason: knee pain) 30 Days Qty: 50 0RF Protocol: Apply to: Apply to: right knee buprenorphine-naloxone [Suboxone] 8-2 mg Film 1 film sublingual BID 19 Days Qty: 28 0RF Changed naproxen 500 mg Tablet 500 mg PO Q12H PRN (Reason: pain) 30 Days Qty: 60 0RF Discontinued prazosin 1 mg Capsule 3 mg PO BEDTIME 30 Days Qty: 90 0RF hydroxyzine HCl 50 mg Tablet 50 mg PO BID PRN (Reason: anxiety) 30 Days Qty: 60 0RF Discharge Orders: Discharge Order (Routine); Ordered 10/02/21 Ordered By: Lito Haile Diet: regular diet Activity on Discharge: As tolerated Stand Alone Forms: Patient Portal Discharge page Care Plan Goals: Maintain mood and safe behaviors Take medications as prescribed Continue to pursue sobriety Practice coping skills Continue with outpatient providers and reach out to them as needed Health Concerns: Maintain mood and safe behaviors sobriety Chronic Right leg pain Plan of Treatment: Follow up with your PCP, psychiatric provider and other outpatient providers regarding above concerns Take medications as prescribed Assessment: Risk assessment at time of discharge:? Patient was interviewed prior to discharge and found to be fully oriented and without any SI or HI. Patient has insight and demonstrates good judgment in terms of wanting to pursue treatment. Patient is not in imminent risk of harm to self or others and has a safety plan that includes presenting to the closest ER or calling 911 if feeling unsafe.? Patient has been observed closely by nursing and unit staff throughout admission; patient has not engaged in any behaviors that suggest dangerousness to self or others and has demonstrated appropriate behaviors and impulse control Discharge Date/Time: 10/02/21 13:50
[2021-10-02] MEDS: Buprenorphine/Naloxone 4/1 mg FILM 1 FILM SUBLINGUAL (13:44)
== END 2021-10-02 13:50 | disposition other institution (70) | DRG 754 ==
LOC: HO.ED 09-20 14:49 → HO.PM5 09-20 23:01
PROVIDERS: Admitting Provider Psychiatry & Neurology Psychiatry; Emergency Provider Emergency Medicine; Visit Provider Psychiatry & Neurology Psychiatry
DX: F32.A Depression, unspecified (principal); R45.851 Suicidal ideations; F11.20 Opioid dependence, uncomplicated; F43.12 Post-traumatic stress disorder, chronic; Z20.822 Contact with and (suspected) exposure to COVID-19; Z79.899 Other long term (current) drug therapy
CPT/HCPCS: 36415; 80051; 80076; 80307; 82565; 84520; 85025; 87635; 93005; 99285

== ENCOUNTER 2021-10-22 16:03 | Emergency (ER) | payer MEDICAID, SELFPAY ==
--- NOTE | ~2021-10-22 | CT_ITS ---
EXAMINATION: HEAD CT WITHOUT CONTRAST CERVICAL SPINE CT WITHOUT CONTRAST CLINICAL INFORMATION: Fall COMPARISON: None. TECHNIQUE: Contiguous axial imaging of the head was performed without the administration of IV contrast. Axial multidetector volumetric images were also performed through the cervical spine without contrast. Multiplanar reconstructed images in coronal and sagittal orientations were submitted. DOSE: 1452 mGy-cm FINDINGS: HEAD: There is no evidence of acute intracranial hemorrhage or territorial infarction. No abnormal mass-effect or midline shift. No extra-axial fluid collections. Fernandes to white matter differentiation is well preserved. The ventricles are normal in size and configuration. . The soft tissues and osseous structures are normal. Partial opacification left sphenoid sinus. The other sinuses and mastoid air cells are clear. CERVICAL SPINE: Straightening of cervical curvature. Posterior alignment is maintained. Craniocervical and atlantoaxial articulation is maintained.. Moderate C5-C6 disc degeneration. Curvilinear calcification posterior to the C5-C6 disc space, suspected to be chronic. Bony spurring anteriorly, disc height loss, endplate irregularity. There is spondylosis otherwise in the cervical spine. Developmental unfused posterior arch of C1. No visible acute fracture. There is ankylosis of the right C2-C3 facet joint, partial ankylosis on the left side. No significant paravertebral soft tissue swelling. No suspicious thyroid findings. Patchy pleural-based opacities in bilateral lung apices, could reflect atelectasis. CT/CT cervical spine wo con IMPRESSION: 1. No CT evidence of acute intracranial pathology. 2. No CT evidence acute fracture or malalignment in the cervical spine. 3. Cervical spondylosis. Moderate C5-C6 disc degeneration. Additional findings and details as above.
--- NOTE | ~2021-10-22 | CT_ITS ---
EXAMINATION: HEAD CT WITHOUT CONTRAST CERVICAL SPINE CT WITHOUT CONTRAST CLINICAL INFORMATION: Fall COMPARISON: None. TECHNIQUE: Contiguous axial imaging of the head was performed without the administration of IV contrast. Axial multidetector volumetric images were also performed through the cervical spine without contrast. Multiplanar reconstructed images in coronal and sagittal orientations were submitted. DOSE: 1452 mGy-cm FINDINGS: HEAD: There is no evidence of acute intracranial hemorrhage or territorial infarction. No abnormal mass-effect or midline shift. No extra-axial fluid collections. Fernandes to white matter differentiation is well preserved. The ventricles are normal in size and configuration. . The soft tissues and osseous structures are normal. Partial opacification left sphenoid sinus. The other sinuses and mastoid air cells are clear. CERVICAL SPINE: Straightening of cervical curvature. Posterior alignment is maintained. Craniocervical and atlantoaxial articulation is maintained.. Moderate C5-C6 disc degeneration. Curvilinear calcification posterior to the C5-C6 disc space, suspected to be chronic. Bony spurring anteriorly, disc height loss, endplate irregularity. There is spondylosis otherwise in the cervical spine. Developmental unfused posterior arch of C1. No visible acute fracture. There is ankylosis of the right C2-C3 facet joint, partial ankylosis on the left side. No significant paravertebral soft tissue swelling. No suspicious thyroid findings. Patchy pleural-based opacities in bilateral lung apices, could reflect atelectasis. CT/CT head/brain wo con IMPRESSION: 1. No CT evidence of acute intracranial pathology. 2. No CT evidence acute fracture or malalignment in the cervical spine. 3. Cervical spondylosis. Moderate C5-C6 disc degeneration. Additional findings and details as above.
[2021-10-22 16:10] VITALS: BP 150/87; PULSE 88; RESP 12; TEMP 36.5; O2SAT 97; BMI 28.8
--- NOTE | 2021-10-22 16:11 | ED_ITS ---
HPI - Overdose General Chief Complaint: Overdose Stated Complaint: OVERDOSE Time Seen by Provider: 10/22/21 16:09 Source: patient Mode of arrival: EMS Limitations: no limitations History of Present Illness HPI Narrative: snorted 1 bag of heroin after the parade fell while walking and overdosed with apnea - bystanders administered 8mg IN narcan put in recovery position patient awake with EMS and did well, has abrasion to R forehead. Awake on arrival to ED, denies SI, agrees with SUDE evaluation. complaint: accidental overdose Onset (ago): minute(s) Timing confirmed by: family member Context: Accidental Overdose: wanted to get high Associated symptoms: nausea/vomiting Treatments Prior to Arrival: narcan (8mg IN narcan by bystanders, c collar by EMS) Related Data Previous Rx's Medication Instructions Recorded buprenorphine 4 mg-naloxone 1 mg 1 film SUBLINGUAL DAILY@1300 19 10/02/21 sublingual film (Suboxone) Days #19 ea buprenorphine 8 mg-naloxone 2 mg 1 film SUBLINGUAL BID 19 Days #28 10/02/21 sublingual film (Suboxone) ea capsaicin 0.025 % topical cream 1 appl TOPICAL QID PRN 30 Days #50 10/02/21 g cyanocobalamin (vitamin B-12) 1,000 mcg PO DAILY 30 Days #30 tab 10/02/21 1,000 mcg tablet (Vitamin B-12) fluoxetine 10 mg capsule 30 mg PO DAILY 30 Days #90 cap 10/02/21 folic acid 1 mg tablet 1 mg PO DAILY 30 Days #30 tab 10/02/21 multivitamin (Daily-Ty) 1 tab PO DAILY 30 Days #30 tab 10/02/21 naproxen 500 mg tablet 500 mg PO Q12H PRN 30 Days #60 tab 10/02/21 nicotine (polacrilex) 2 mg gum 2 mg BUCCAL Q2H PRN 30 Days #100 ea 10/02/21 nicotine 21 mg/24 hr daily 21 mg TRANSDERMAL DAILY 28 Days 10/02/21 transdermal patch #28 ea olanzapine 10 mg tablet 10 mg PO BEDTIME 30 Days #30 tab 10/02/21 prazosin 2 mg capsule 4 mg PO BEDTIME 30 Days #60 cap 10/02/21 Allergies Allergy/AdvReac Type Severity Reaction Status Date / Time No Known Allergies Allergy Verified 08/27/21 00:53 [No Known Allergies*] Review of Systems Review of Systems: Constitutional : No Fever, No Chills ENT/Mouth : No Ear Pain, No Nasal Congestion, No sore throat Eyes: No Eye Pain, No Swelling, No Redness Cardiovascular : No Chest Pain, No SOB Respiratory : No Cough, No Sputum, No Dyspnea Gastrointestinal : No Nausea, No Vomiting, No Diarrhea, No Hematochezia, No Melena Genitourinary : No Dysuria, No Urinary Frequency, No Hematuria Musculoskeletal : No Myalgias Skin : No Skin Lesions, No rash, pos abrasion Neuro : No Weakness, No Numbness, No Paresthesias, No Dizziness, No Headache Psych : no Anxiety, no Depression, no SI/HI Heme/Lymph: No Lymphadenopathy Endocrine : No Polyuria, No Polydipsia All other systems reviewed and are negative COUNTS INCLUDE 234 BEDS AT THE [facility] Past Medical History Attestation statement: The following information was validated with the patient. Medical History Atypical bipolar disorder Chronic post-traumatic stress disorder (PTSD) Cocaine use disorder Heroin use Opioid use disorder, moderate, in early remission, on maintenance therapy, dependence Social History Social History Household Members: Friend(s) Housing: Apartment Housing Other:: pt plans on living with his sister after D/C Do you presently have visiting nurse or other home services: No Alcohol intake: never Patient Tobacco Use Status: Current everyday Tobacco user Tobacco use type: Cigarette Cigarette Packs Per Day: 2 Cigarettes Per Day: 10 Years Smoked: 10 years e-Cigarette/Vaping Use: Never Used Second Hand Smoke Exposure: No Substance Use Type: Crack/Cocaine and Heroin Advance Directives: No Advance Directives Information Provided: No service: No Sexual orientation: Did not discuss Physical Exam Vital Signs: Vital Signs: Last Vital Signs Temp 98.3 F 10/22/21 17:01 Pulse 87 10/22/21 18:14 Resp 16 10/22/21 18:14 BP 138/80 10/22/21 17:01 Pulse Ox 97 10/22/21 18:14 BMI result Body Mass Index 28.8 Appearance: Alert. Oriented X3. No acute distress. Eyes: Pupils equal, round and reactive to light. 3mm ENT: Pharynx normal. Abrasions on top of R parietal scalp Neck: Normal inspection. Neck supple. in cervical collar CVS: Normal heart rate and rhythm. Pulses normal. Respiratory: No respiratory distress. Breath sounds normal. Abdomen: Soft and non-tender. Skin: Skin warm and dry. Normal skin color. Normal skin turgor. Extremities: No lower extremity edema. Neuro: Oriented X 3. No motor deficit. No sensory deficit. Course Course Course Narrative: looking for detox bed aware that we might not be able to get into one - told the customer care team coach and RN witnessed if I don't get a bed, I will do something to get myself committed here. He has denied SI to us and this now seems very manipulative and dishonest from his presentation. no beds available tonight per recovery team Physician observation started at 583pm Patient placed in physician observation because the patient needed more time for recovery coaches to assist in detox placement. At the time observation was started the patient's vitals were stable, patient is alert and oriented, Neuro: nonfocal, CV RRR, Lungs clear MDM - Overdose MDM Narrative Medical decision making narrative: 56 yo male with hx of ETOH abuse, opiate use disorder, bipolar disorder who went to the parade today and snorted 1 bag of heroin he then overdosed and fell to the ground in front of family - bystanders gave him 8mg IN narcan with good effect. At this time he is awake and doing well denies SI. I offered SUDE evaluation CARE team consult placed. CT head/cspine for trauma. narcan to take home ordered. Lab Data Result diagrams: 10/22/21 19:03 10/22/21 19:03 Labs: Lab Results 10/22/21 10/22/21 10/22/21 Range/Units 19:03 19:03 19:03 WBC 6.4 (4.8-10.8) X10*3/uL RBC 4.78 (4.60-5.80) X10*6/uL Hgb 14.1 (14.0-18.0) g/dl Hct 42.1 (42.0-52.0) % MCV 88.1 (80.0-98.0) fL MCH 29.5 (27.0-33.0) pg MCHC 33.5 (31.0-36.0) g/dl RDW 13.0 (11.0-16.0) % Plt Count 220 (160-400) X10*3/uL MPV 10.2 (9.4-12.4) fL Absolute Nucleated RBC 0.000 (0.0-0.012) X10*3/uL Nucleated RBC % (auto) 0.0 (0.0-0.2) /100WBC Sodium 147 H (135-145) mmol/L Potassium 3.8 (3.3-5.1) mmol/L Chloride 112 H (96-108) mmol/L Carbon Dioxide 24 (22-29) mmol/L Anion Gap 15 (12-20) BUN 15 (9-16) mg/dL Creatinine 0.98 (0.5-1.4) mg/dL Estim Creat Clear Calc 92.0 Estimated GFR > 60 Random Glucose 107 (60-115) mg/dL Calcium 9.8 (8.4-10.2) mg/dL Total Bilirubin 0.6 (0.0-1.0) mg/dL Direct Bilirubin 0.2 (0.0-0.5) mg/dL AST 15 D (5-37) U/L ALT 14 (0-40) U/L Alkaline Phosphatase 59 (39-117) U/L Total Protein 7.2 (6.5-8.0) g/dL Albumin 4.0 (3.5-5.0) g/dL Ethyl Alcohol mg/dL COVID-19 ([facility]) Negative (Negative) COVID-19 Clin Com See Note 10/22/21 Range/Units 19:03 WBC (4.8-10.8) X10*3/uL RBC (4.60-5.80) X10*6/uL Hgb (14.0-18.0) g/dl Hct (42.0-52.0) % MCV (80.0-98.0) fL MCH (27.0-33.0) pg MCHC (31.0-36.0) g/dl RDW (11.0-16.0) % Plt Count (160-400) X10*3/uL MPV (9.4-12.4) fL Absolute Nucleated RBC (0.0-0.012) X10*3/uL Nucleated RBC % (auto) (0.0-0.2) /100WBC Sodium (135-145) mmol/L Potassium (3.3-5.1) mmol/L Chloride (96-108) mmol/L Carbon Dioxide (22-29) mmol/L Anion Gap (12-20) BUN (9-16) mg/dL Creatinine (0.5-1.4) mg/dL Estim Creat Clear Calc Estimated GFR Random Glucose (60-115) mg/dL Calcium (8.4-10.2) mg/dL Total Bilirubin (0.0-1.0) mg/dL Direct Bilirubin (0.0-0.5) mg/dL AST (5-37) U/L ALT (0-40) U/L Alkaline Phosphatase (39-117) U/L Total Protein (6.5-8.0) g/dL Albumin (3.5-5.0) g/dL Ethyl Alcohol 66 mg/dL COVID-19 ([facility]) (Negative) COVID-19 Clin Com Discharge Plan Discharge Clinical Impression: Accidental heroin overdose, Abrasion of scalp Patient Disposition: Still a Patient Instructions: Abrasion (ED), Opioid Use Disorder (ED) Additional Instructions: return to ED for any worsening symptoms or concerns Prescriptions: No Action prazosin 2 mg capsule 4 mg PO BEDTIME 30 Days Qty: 60 0RF buprenorphine-naloxone [Suboxone] 4-1 mg Film 1 film sublingual DAILY@1300 19 Days Qty: 19 0RF fluoxetine 10 mg Capsule 30 mg PO DAILY 30 Days Qty: 90 0RF multivitamin [Daily-Ty] Tablet 1 tab PO DAILY 30 Days Qty: 30 0RF nicotine (polacrilex) 2 mg Gum 2 mg buccal Q2H PRN (Reason: Nicotine Cravings) 30 Days Qty: 100 0RF cyanocobalamin (vitamin B-12) [Vitamin B-12] 1,000 mcg tablet 1,000 mcg PO DAILY 30 Days Qty: 30 0RF olanzapine 10 mg Tablet 10 mg PO BEDTIME 30 Days Qty: 30 0RF nicotine 21 mg/24 hr Patch 24 Hour 21 mg transdermal DAILY 28 Days Qty: 28 0RF folic acid 1 mg Tablet 1 mg PO DAILY 30 Days Qty: 30 0RF capsaicin 0.025 % Cream 1 appl topical QID PRN (Reason: knee pain) 30 Days Qty: 50 0RF Protocol: Apply to: Apply to: right knee naproxen 500 mg Tablet 500 mg PO Q12H PRN (Reason: pain) 30 Days Qty: 60 0RF buprenorphine-naloxone [Suboxone] 8-2 mg Film 1 film sublingual BID 19 Days Qty: 28 0RF
[2021-10-22 17:01] VITALS: BP 138/80; PULSE 74; RESP 18; TEMP 36.8; O2SAT 94
--- NOTE | 2021-10-22 17:04 | HO.SUDE ---
SUDE Patient is a 56 year old Azerbaijani speaking male who presented to [facility] via EMS after an accidental overdose in the community. Patient reports this is the second time he has overdosed, with the first occurring two years ago. Patient reported to this lyric writer that he had been sober for two months and relapsed today. Discussed hard reduction and provided education on tolerance and risk of overdose after periods of sobriety. A review of the medical record shows that patient tested positive for opiates, fentanyl and cocaine on 08/27/21 and 09/18/21. Patient reports he uses intranasally. Patient is currently on Suboxone, however states he ran out of films due to a misunderstanding with the Suboxone clinic. Patient reports he had papers indicating his appointment was on 10/20 however when he showed up they told him it was on 10/17 and that they couldn't see him until Saturday. Patient currently has an appointment at the [facility] for 10/23. Discussed restarting Suboxone and precipitated withdrawal. Discussed presenting to the emergency room for Suboxone if he is ever in a similar situation. Patient reports he has never been to detox however reports he has been psychiatrically admitted multiple times with the most recent admission occurring in September. Patient reports he has been diagnosed with depression and PTSD. Patient reports he first started using heroin at age 30. Patient initially declined SI to this lyric writer when discussing mental health diagnoses, however after SUDE patient stated I wanna go to the 5th floor, I'm suicidal. RN and ED physician aware. Discussed case with CARE Team.
--- NOTE | 2021-10-22 18:11 | PC.NURSE ---
pt resting comfortably in bed, requesting food, and requesting for the collar to be removed. pt denies SI/HI at this time. awake and alert
[2021-10-22 18:14] VITALS: PULSE 87; RESP 16; O2SAT 97
--- NOTE | 2021-10-22 18:49 | PC.NURSE ---
pt reported thoughts of SI to sustainability coach, denies to t/w and MD Preciado previously. pt reported if he does not get a detox bed he will do something to get himself commited . pt then reported to t/w that he already tried to harm himself today . pt was unwilling to elaborate when or how. pt then changed over into behavioral thorne and moved to [facility] with security.
[2021-10-22 19:23] LABS: Ethanol 66 mg/dL; Hematocrit 42.1 % (42.0-52.0); Hemoglobin 14.1 g/dl (14.0-18.0); Mean Corpuscular HGB Conc 33.5 g/dl (31.0-36.0); Mean Corpuscular Hemoglobin 29.5 pg (27.0-33.0); Mean Corpuscular Volume 88.1 fL (80.0-98.0); Mean Platelet Volume 10.2 fL (9.4-12.4); Platelet Count 220 X10*3/uL (160-400); Red Blood Count 4.78 X10*6/uL (4.60-5.80); White Blood Count 6.4 X10*3/uL (4.8-10.8)
[2021-10-22 19:26] LABS: COVID-19 Test Negative (Negative); IDNOW Serial# 16C4AD1C
[2021-10-22 19:27] LABS: Alanine Aminotransferase 14 U/L (0-40); Alkaline Phosphatase 59 U/L (39-117); Anion Gap 15 (12-20); Aspartate Amino Transferase 15 U/L (5-37); Bilirubin Direct 0.2 mg/dL (0.0-0.5); Bilirubin Total 0.6 mg/dL (0.0-1.0); Blood Urea Nitrogen 15 mg/dL (9-16); Calcium 9.8 mg/dL (8.4-10.2); Carbon Dioxide 24 mmol/L (22-29); Chloride 112 mmol/L (96-108); Estimated Glomerular Filt Rate > 60; Glucose Random 107 mg/dL (60-115); Potassium 3.8 mmol/L (3.3-5.1); Sodium 147 mmol/L (135-145); Total Protein 7.2 g/dL (6.5-8.0)
--- NOTE | 2021-10-22 19:40 | MHC.RECOVSUP ---
? Reason for consult Recovery Support o Current location: [facility] o Identified substance use concern: Heroin - Overdose - Withdrawal - Seeking ATS (detox) - Support ? Intervention: o ATS bed search started 5pm/[id number] o Community resources provided o Harm reduction discussion ? Plan: <del>o</del> <del>Referral</del> <del>to</del> <del>[facility]</del> <del>o</del> <del>Bed</del> <del>search</del> <del>in</del> <del>progress</del> <del>to</del> <del>o</del> <del>Follow</del> <del>up</del> <del>tomorrow</del> <del>o</del> <del>Patient</del> <del>awaiting</del> <del>crisis</del> <del>evaluation</del> o Patient to follow up with HF after discharge ? Additional information: Patient is seeking detox.. No Bed at the moment.. Could not do an intake at [facility] computer was down... Patient was sent to the pod for future assistance in the morning..
[2021-10-22 23:25] LABS: Amphetamine Screen Urine Not Detected (Not Detect); Barbiturates, Urine Not Detected (Not Detect); Benzodiazepines Screen Urine Not Detected (Not Detect); Cannabinoid Screen Urine Not Detected (Not Detect); Cocaine Screen Urine POSITIVE (Not Detect); Fentanyl, urine POSITIVE (Not Detect); Opiate Screen Urine POSITIVE (Not Detect); Phencyclidine Screen Urine Not Detected (Not Detect)
[2021-10-23 01:28] VITALS: BP 127/72; PULSE 86; RESP 17; TEMP 36.9; O2SAT 95
--- NOTE | 2021-10-23 05:24 | PC.NURSE ---
Patient slept intermittently, no distress observed/reported, snacking intermittently, behavior non concerning, currently not on any medication, care team and transition coach coordinating detox bed search, will continue to monitor.
--- NOTE | 2021-10-23 07:13 | PC.NURSE ---
patient appears to remain asleep at present respirations are even and unlabored patient appears in no distress
[2021-10-23 08:29] VITALS: BP 153/85; PULSE 70; RESP 13; O2SAT 100
[2021-10-23] MEDS: Buprenorphine/Naloxone 2/0.5mg FILM 1 FILM SUBLINGUAL (08:59)
[2021-10-23 09:00] VITALS: BP 155/73; PULSE 80; RESP 16; O2SAT 98
--- NOTE | 2021-10-23 09:01 | PC.NURSE ---
Andry, recovery advocate to bedside with pt explaining [facility] accepts pt, will do intake over phone
--- NOTE | 2021-10-23 09:43 | MHC.RECOVSUP ---
Recovery Support note: Patient referred to [facility] and accepted for admission. Phone intake complete. ED aware. Patient to be transported via [facility] or [facility].
== END 2021-10-23 10:15 | disposition other institution (70) ==
PROVIDERS: Emergency Provider Emergency Medicine
DX: T40.1X1A Poisoning by heroin, accidental (unintentional), initial encounter (principal); F10.129 Alcohol abuse with intoxication, unspecified; Y90.3 Blood alcohol level of 60-79 mg/100 ml; S00.01XA Abrasion of scalp, initial encounter; F14.10 Cocaine abuse, uncomplicated; M54.2 Cervicalgia; W01.0XXA Fall on same level from slipping, tripping and stumbling without subsequent striking against object, initial encounter; Y93.9 Activity, unspecified; Y92.9 Unspecified place or not applicable; Y99.9 Unspecified external cause status; F17.210 Nicotine dependence, cigarettes, uncomplicated; Z71.6 Tobacco abuse counseling; Z20.822 Contact with and (suspected) exposure to COVID-19; Z79.899 Other long term (current) drug therapy
CPT/HCPCS: 70450; 72125; 80048; 80076; 80307; 82077; 85027; 87635; 99285

== ENCOUNTER 2021-11-30 03:03 | Inpatient (IN) | payer OTHER, SELFPAY ==
--- NOTE | ~2021-11-30 | US_ITS ---
EXAMINATION: US VENOUS ULTRASOUND WITH DOPPLER LOWER EXTREMITY, BILATERAL CLINICAL INFORMATION: Swelling lower extremity COMPARISON: None TECHNIQUE: Ultrasound of the deep veins is performed from the hip to the calf with compression sonography and color and pulse Doppler assessment. Spectral analysis with color-flow imaging is performed. FINDINGS: RIGHT: There is normal venous compression and respiratory variation and augmented flow. The visualized common femoral vein, superficial femoral vein, profunda femoral vein, popliteal vein, and the trifurcation region shows no evidence of deep venous thrombosis. There is no significant popliteal fossa cyst. Visualized calf veins appear patent. LEFT: There is normal venous compression and respiratory variation and augmented flow. The visualized common femoral vein, superficial femoral vein, profunda femoral vein, popliteal vein, and the trifurcation region shows no evidence of deep venous thrombosis. There is no significant popliteal fossa cyst. Visualized calf veins appear patent. If the patient's symptoms persist, followup ultrasound in 5 days 7 days might be of value to exclude proximal propagation from a non-visualized calf vein. US/US venous duplex LE BI IMPRESSION: No DVT demonstrated in the bilateral lower extremity.
[2021-11-30 03:09] VITALS: BP 130/88; PULSE 96; RESP 20; TEMP 36.4; O2SAT 98; BMI 30.7
[2021-11-30 03:36] LABS: COVID-19 Test Negative (Negative)
--- NOTE | 2021-11-30 03:44 | ED_ITS ---
HPI - Psych General Chief Complaint: Psychiatric Symptoms Stated Complaint: med refill, crisis Time Seen by Provider: 11/30/21 03:43 Source: patient Mode of arrival: ambulatory Limitations: no limitations History of Present Illness HPI Narrative: Patient history of depression, schizophrenic feels suicidal and depressed no plan patient noncompliant to his medication has not taken his medicine for last 2 weeks coherent as such Related Data Home Medications Medication Instructions Recorded Confirmed buprenorphine 8 mg-naloxone 2 mg 2 strip SUBLINGUAL DAILY 11/30/21 11/30/21 sublingual film (Suboxone) Previous Rx's Medication Instructions Recorded fluoxetine 10 mg capsule 30 mg PO DAILY 30 Days #90 cap 10/02/21 folic acid 1 mg tablet 1 mg PO DAILY 30 Days #30 tab 10/02/21 naproxen 500 mg tablet 500 mg PO Q12H PRN 30 Days #60 tab 10/02/21 nicotine (polacrilex) 2 mg gum 2 mg BUCCAL Q2H PRN 30 Days #100 ea 10/02/21 nicotine 21 mg/24 hr daily 21 mg TRANSDERMAL DAILY 28 Days 10/02/21 transdermal patch #28 ea olanzapine 10 mg tablet 10 mg PO BEDTIME 30 Days #30 tab 10/02/21 prazosin 2 mg capsule 4 mg PO BEDTIME 30 Days #60 cap 10/02/21 Allergies Allergy/AdvReac Type Severity Reaction Status Date / Time No Known Allergies Allergy Verified 08/27/21 00:53 [No Known Allergies*] Review of Systems Review of Systems: Yes all other systems are reviewed and are negative PMFSH Past Medical History Medical History Atypical bipolar disorder Chronic post-traumatic stress disorder (PTSD) Cocaine use disorder Heroin use Opioid use disorder, moderate, in early remission, on maintenance therapy, dependence Social History Social History Household Members: Friend(s) Housing: Apartment Housing Other:: pt plans on living with his sister after D/C Do you presently have visiting nurse or other home services: No Alcohol intake: current Alcohol intake frequency: a few times a week Patient Tobacco Use Status: Current everyday Tobacco user Tobacco use type: Cigarette Cigarette Packs Per Day: 2 Cigarettes Per Day: 10 Years Smoked: 10 years e-Cigarette/Vaping Use: Never Used Second Hand Smoke Exposure: No Substance Use Type: Crack/Cocaine and Heroin Advance Directives: No Advance Directives Information Provided: Yes service: No Sexual orientation: Did not discuss Physical Exam Vital Signs: Vital Signs: Last Vital Signs Temp 97.5 F 11/30/21 03:09 Pulse 96 11/30/21 03:09 Resp 20 11/30/21 03:09 BP 130/88 11/30/21 03:09 Pulse Ox 98 11/30/21 03:09 BMI result Body Mass Index 30.7 Appearance: Alert. Oriented X3. No acute distress. Eyes: PERRLA, No Nystagmus ENT: Pharynx normal. Oral Mucosa moist Neck: Normal inspection. Neck supple. CVS: Normal heart rate and rhythm. Pulses normal. Respiratory: No respiratory distress. Equal air entry bilateral, no wheezing/rales/rhonchi Abdomen: Soft and nontender. Bowel sounds are present, no mass palpable, no CVA tenderness Skin: Skin warm and dry. Normal skin color. Normal skin turgor. Extremities: No lower extremity edema. No calf tenderness psych: Feel depressed no hallucination delusion at this time no suicidal plan Neuro: Oriented X 3. No motor deficit. No sensory deficit.No cerebellar signs , cranial nerves II-XII intact MDM - Psych MDM Narrative Medical decision making narrative: Will get N consult for further evaluation Lab Data Attestation: I reviewed the patient's lab results. Labs: Lab Results 11/30/21 11/30/21 11/30/21 Range/Units 03:15 03:35 06:01 Urine Color Urine Appearance Urine pH (5.0-8.0) Ur Specific Castine (1.005-1.025) Urine Protein (NEG-TRACE) MG/DL Urine Glucose (UA) (NEG) MG/DL Urine Ketones (NEG) MG/DL Urine Blood (NEG) Urine Nitrite (NEG) Ur Leukocyte Esterase (NEG) Urine Opiates Screen POSITIVE H (Not Detect) Urine Fentanyl Screen POSITIVE H (Not Detect) Ur Barbiturates Screen Not Detected (Not Detect) Ur Phencyclidine Scrn Not Detected (Not Detect) Ur Amphetamines Screen Not Detected (Not Detect) U Benzodiazepines Scrn Not Detected (Not Detect) Urine Cocaine Screen POSITIVE H (Not Detect) U Marijuana (THC) Screen Not Detected (Not Detect) Ethyl Alcohol < 10 mg/dL COVID-19 ([place]) Negative (Negative) COVID-19 Clin Com See Note 11/30/21 Range/Units 06:01 Urine Color YELLOW Urine Appearance HAZY Urine pH 6.0 (5.0-8.0) Ur Specific Castine >= 1.030 H (1.005-1.025) Urine Protein NEG (NEG-TRACE) MG/DL Urine Glucose (UA) NEG (NEG) MG/DL Urine Ketones 15 (NEG) MG/DL Urine Blood NEG (NEG) Urine Nitrite NEG (NEG) Ur Leukocyte Esterase NEG (NEG) Urine Opiates Screen (Not Detect) Urine Fentanyl Screen (Not Detect) Ur Barbiturates Screen (Not Detect) Ur Phencyclidine Scrn (Not Detect) Ur Amphetamines Screen (Not Detect) U Benzodiazepines Scrn (Not Detect) Urine Cocaine Screen (Not Detect) U Marijuana (THC) Screen (Not Detect) Ethyl Alcohol mg/dL COVID-19 ([place]) (Negative) COVID-19 Clin Com Discharge Plan Discharge Clinical Impression: Chronic schizophrenia, Depressive disorder, Suicidal ideation Patient Disposition: Still a Patient Prescriptions: No Action prazosin 2 mg capsule 4 mg PO BEDTIME 30 Days Qty: 60 0RF fluoxetine 10 mg Capsule 30 mg PO DAILY 30 Days Qty: 90 0RF nicotine (polacrilex) 2 mg Gum 2 mg buccal Q2H PRN (Reason: Nicotine Cravings) 30 Days Qty: 100 0RF olanzapine 10 mg Tablet 10 mg PO BEDTIME 30 Days Qty: 30 0RF nicotine 21 mg/24 hr Patch 24 Hour 21 mg transdermal DAILY 28 Days Qty: 28 0RF folic acid 1 mg Tablet 1 mg PO DAILY 30 Days Qty: 30 0RF naproxen 500 mg Tablet 500 mg PO Q12H PRN (Reason: pain) 30 Days Qty: 60 0RF buprenorphine-naloxone [Suboxone] 8-2 mg film 2 strip sublingual DAILY 0RF
[2021-11-30 03:57] LABS: Ethanol < 10 mg/dL
--- NOTE | 2021-11-30 05:43 | PC.NURSE ---
Patient slept through the night, behavior non concerning at this time, med rec completed/MAR updated, [facility] referral completed/confirmed/pending ETA, urine pending for Utox screen, VSS, will continue to monitor.
[2021-11-30 06:08] LABS: Appearance Urine HAZY; Color Urine YELLOW; Glucose Urine UA NEG (NEG); Leukocyte Esterase Urine NEG (NEG); Nitrite Urine NEG (NEG); Specific Gravity - Urine >= 1.030 (1.005-1.025); Urine Blood NEG (NEG); Urine Ketones 15 MG/DL (NEG); Urine Protein NEG (NEG-TRACE)
[2021-11-30 06:21] LABS: Amphetamine Screen Urine Not Detected (Not Detect); Barbiturates, Urine Not Detected (Not Detect); Benzodiazepines Screen Urine Not Detected (Not Detect); Cannabinoid Screen Urine Not Detected (Not Detect); Cocaine Screen Urine POSITIVE (Not Detect); Fentanyl, urine POSITIVE (Not Detect); Opiate Screen Urine POSITIVE (Not Detect); Phencyclidine Screen Urine Not Detected (Not Detect)
[2021-11-30] MEDS: Buprenorphine/Naloxone 8/2 mg FILM 2 FILM SUBLINGUAL (09:07)
[2021-11-30] MEDS: FLUoxetine HCl 10 MG CAPSULE 30 MG PO (09:07)
[2021-11-30] MEDS: Folic Acid 1 MG TABLET PO (09:07)
--- NOTE | 2021-11-30 09:40 | PC.NURSE ---
pt seen by VIVIAN. pleasant, accepted breakfast, med compliant. denies SI/HI. no behavioral issues reported/observed. will continue to monitor.
--- NOTE | 2021-11-30 10:21 | ECG_ITS ---
Test Reason : med clearance Blood Pressure : / mmHG Vent. Rate : 061 BPM Atrial Rate : 061 BPM P-R Int : 158 ms QRS Dur : 088 ms QT Int : 430 ms P-R-T Axes : 058 070 048 degrees QTc Int : 432 ms Normal sinus rhythm Normal ECG When compared with ECG of 20-SEP-2021 22:12, No significant changes seen Referred By: Dayday Taylor Electronically Signed By:YOVANI PICKERING
--- NOTE | 2021-11-30 15:50 | PHA.MEDREC ---
Pharmacy Consult ? Medication Reconciliation Pharmacy has completed the medication reconciliation.
[2021-11-30 15:59] VITALS: BP 152/78; PULSE 57; RESP 16; TEMP 36.8; O2SAT 95
[2021-11-30 16:54] LABS: MANUAL DIFF FLAG NO
[2021-11-30 17:01] LABS: Basophils Percent Auto 0.5 % (0-2); Eosinophils Absolute Auto 0.2 X10*3/uL (0.0-0.4); Eosinophils Percent Auto 3.1 % (0-4); Hematocrit 40.1 % (42.0-52.0); Hemoglobin 13.8 g/dl (14.0-18.0); Imm Gran Abs Auto 0.01 X10*3/uL (0.00-0.03); Imm Gran Pct Auto 0.1 % (0.0-0.4); Lymphocytes Absolute Auto 2.4 X10*3/uL (1.2-4.9); Lymphocytes Percent Auto 31.6 % (20-40); Mean Corpuscular HGB Conc 34.4 g/dl (31.0-36.0); Mean Corpuscular Hemoglobin 29.6 pg (27.0-33.0); Mean Corpuscular Volume 86.1 fL (80.0-98.0); Monocytes Absolute Auto 0.8 X10*3/uL (0.1-1.2); Neutrophils Absolute Auto 4.1 x10*3/uL (2.0-8.3); Neutrophils Percent Auto 53.7 % (45-73); Platelet Count 202 X10*3/uL (160-400); Red Blood Count 4.66 X10*6/uL (4.60-5.80); Red Cell Distribution Width 13.2 % (11.0-16.0); White Blood Count 7.7 X10*3/uL (4.8-10.8)
[2021-11-30 17:29] LABS: Alanine Aminotransferase 27 U/L (0-40); Albumin Level 3.8 g/dL (3.5-5.0); Alkaline Phosphatase 74 U/L (39-117); Anion Gap 10 (12-20); Aspartate Amino Transferase 27 U/L (5-37); Bilirubin Total 1.2 mg/dL (0.0-1.0); Blood Urea Nitrogen 35 mg/dL (9-16); Calcium 9.7 mg/dL (8.4-10.2); Carbon Dioxide 29 mmol/L (22-29); Chloride 105 mmol/L (96-108); Creatinine Clr Calc Pharmacy 65.3; Estimated Glomerular Filt Rate 52; Glucose Random 116 mg/dL (60-115); Potassium 4.1 mmol/L (3.3-5.1); Sodium 140 mmol/L (135-145); Total Protein 6.7 g/dL (6.5-8.0)
[2021-11-30] MEDS: 0.9 % Sodium Chloride 1,000 ML 999 ML IVCONT ×2 (18:58→19:09)
[2021-11-30] MEDS: OLANZapine 10 MG TABLET PO (21:27)
[2021-11-30] MEDS: Prazosin HCL 1 MG CAPSULE 4 MG PO (21:28)
[2021-11-30] MEDS: Buprenorphine/Naloxone 8/2 mg FILM 1 FILM SUBLINGUAL (21:28)
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
[2021-11-30 21:39] VITALS: BP 119/74; PULSE 63; RESP 18; O2SAT 97
[2021-11-30 21:51] LABS: Anion Gap 7 (12-20); Blood Urea Nitrogen 34 mg/dL (9-16); Calcium 9.1 mg/dL (8.4-10.2); Carbon Dioxide 32 mmol/L (22-29); Chloride 106 mmol/L (96-108); Creatinine Clr Calc Pharmacy 65.3; Estimated Glomerular Filt Rate 52; Glucose Random 83 mg/dL (60-115); Potassium 4.3 mmol/L (3.3-5.1); Sodium 141 mmol/L (135-145)
--- NOTE | 2021-11-30 23:06 | PC.NURSE ---
patient calm and quiet, complaint with medication, elimination intact, snacking anf hydrating adequately, pending admission to , VSS, will continue yo monitor.
[2021-11-30 23:20] VITALS: BP 117/64; PULSE 62; RESP 20; TEMP 36.3; O2SAT 95
[2021-12-01 00:05] VITALS: BMI 30.3
--- NOTE | 2021-12-01 00:35 | PC.ADMIT ---
56 Year old male admitted from ER Pod 11/30 @ 2317. Conditional Voluntary signed and filed in chart. Referred to [facility] from [facility] Crisis d/t increase SI and CAH telling patient to hang himself. Patient reports being off his meds for a week or two, lost my meds when I moved...and this is what happens when I don't have my meds. Upon admission onto the unit, patient calm, guarded, poor eye contact, soft mumbled speech. Patient is known to the unit, recently admitted to [facility] August 2021, with prior hx several inpatient psychiatric and substance abuse treatment admissions. Patient reports having a psychiatrist at [facility], and works with a therapist, Phani, at [facility]. Legals signed. Upon admission, patient denies SI/HI/AVH, does not appear to be responding to any internal stimuli. Tox Screen (+) for opiates, fentanyl, cocaine. Placed on 15 minute safety checks.
[2021-12-01] MEDS: FLUoxetine HCl 10 MG CAPSULE 30 MG PO (09:05)
[2021-12-01] MEDS: Folic Acid 1 MG TABLET PO (09:05)
[2021-12-01] MEDS: Buprenorphine/Naloxone 8/2 mg FILM 1 FILM SUBLINGUAL ×2 (09:05→18:12)
[2021-12-01 09:07] VITALS: BP 107/62; PULSE 51; RESP 17; TEMP 36.6; O2SAT 97
[2021-12-01 09:36] LABS: Estimated Average Glucose 103 mg/dL; Hemoglobin A1c % 5.2 %
[2021-12-01 09:38] LABS: Alanine Aminotransferase 22 U/L (0-40); Albumin Level 3.5 g/dL (3.5-5.0); Alkaline Phosphatase 67 U/L (39-117); Anion Gap 6 (12-20); Aspartate Amino Transferase 19 U/L (5-37); Bilirubin Total 0.3 mg/dL (0.0-1.0); Blood Urea Nitrogen 31 mg/dL (9-16); Calcium 9.3 mg/dL (8.4-10.2); Carbon Dioxide 29 mmol/L (22-29); Chloride 109 mmol/L (96-108); Cholesterol 136 mg/dL; Estimated Glomerular Filt Rate > 60; Glucose Fasting 94 mg/dL (60-99); HDL Cholesterol 40 mg/dL; LDL Cholesterol Calculated 69 mg/dl; Magnesium 1.9 mg/dL (1.6-2.6); Potassium 4.4 mmol/L (3.3-5.1); Sodium 140 mmol/L (135-145); Total Protein 6.1 g/dL (6.5-8.0); Triglycerides 136 mg/dL
[2021-12-01 09:41] LABS: Free T4 (Free Thyroxine) 1.01 ng/dL (0.71-1.85); Thyroid Stimulating Hormone 1.03 uIU/mL (0.32-4.0)
[2021-12-01 09:58] LABS: Vitamin B12 548 pg/mL (200-900)
[2021-12-01] MEDS: Buprenorphine/Naloxone 4/1 mg FILM 1 FILM SUBLINGUAL (12:48)
--- NOTE | 2021-12-01 14:07 | P.PNPSI_ITS ---
Subjective Subjective Date of Service: 12/01/21 Reason For Visit: Depression, SI, Substance Abuse Interim History: found lying in bed resting late morning. easily rousable, receptive but d eclines to get out of bed. seen with SW. pt reports leg pain. denies SI, denies CAH. mood here and there. not very talkative, no requests. happy to have meds as they are, detox, and meet with MD on saturday. per staff, utox fentanyl, cocaine, opiates positive. no notable events since admission. not been taking meds past two weeks, meds restarted last night. Mental Status Exam Mental Status Exam Narrative: A&O. Laying down under blanket, adequate grooming. fair eye contact, attentive. No Tics or Tremors. No abnormal involuntary movements. Calm, mostly guarded and did not want to engage in long conversation. Non-pressured speech, spontaneous with regular rate and rhythm, normal volume and prosody. No prolonged speech latency or dysarthria. Mood is ?here and there,? affect is blunted. Denies SI upon inquiry. Denies A/VH or delusional thought content. Thoughts are concrete, goal oriented. No known cognitive or memory impairment. Insight/ Judgment limited due to chronic substance use. Diagnostics Vital Signs (24Hr): Vital Signs - 24 hr 11/30/21 15:59 11/30/21 21:39 11/30/21 23:20 Temperature 98.3 F 97.4 F Pulse Rate 57 63 62 Respiratory Rate 16 18 20 Blood Pressure 152/78 H 119/74 117/64 Pulse Oximetry 95 97 95 12/01/21 09:07 Temperature 97.8 F Pulse Rate 51 Respiratory Rate 17 Blood Pressure 107/62 Pulse Oximetry 97 BMI result Body Mass Index 30.3 Labs Results: 11/30/21 16:48 12/01/21 08:35 Labs: Laboratory Results - last 48 hr 11/30/21 11/30/21 11/30/21 03:15 03:35 06:01 WBC RBC Hgb Hct MCV MCH MCHC RDW Plt Count MPV Immature Gran % (Auto) Neut % (Auto) Lymph % (Auto) [place] % (Auto) Eos % (Auto) Baso % (Auto) Lymph # (Auto) [place] # (Auto) Eos # (Auto) Baso # (Auto) Abs Immat Gran (auto) Absolute Neuts (auto) Absolute Nucleated RBC Nucleated RBC % (auto) Sodium Potassium Chloride Carbon Dioxide Anion Gap BUN Creatinine Estim Creat Clear Calc Estimated GFR Random Glucose Fasting Glucose Estimat Average Glucose Hemoglobin A1c % Calcium Magnesium Total Bilirubin AST ALT Alkaline Phosphatase Total Protein Albumin Triglycerides Cholesterol LDL Cholesterol, Calc HDL Cholesterol Vitamin B12 Folate TSH Free T4 Urine Color Urine Appearance Urine pH Ur Specific [place] Urine Protein Urine Glucose (UA) Urine Ketones Urine Blood Urine Nitrite Ur Leukocyte Esterase Urine Opiates Screen POSITIVE H Urine Fentanyl Screen POSITIVE H Ur Barbiturates Screen Not Detected Ur Phencyclidine Scrn Not Detected Ur Amphetamines Screen Not Detected U Benzodiazepines Scrn Not Detected Urine Cocaine Screen POSITIVE H U Marijuana (THC) Screen Not Detected Ethyl Alcohol < 10 COVID-19 ([place]) Negative COVID-19 Clin Com See Note 11/30/21 11/30/21 11/30/21 06:01 16:48 16:48 WBC 7.7 RBC 4.66 Hgb 13.8 L Hct 40.1 L MCV 86.1 MCH 29.6 MCHC 34.4 RDW 13.2 Plt Count 202 MPV 10.0 Immature Gran % (Auto) 0.1 Neut % (Auto) 53.7 Lymph % (Auto) 31.6 [place] % (Auto) 11.0 Eos % (Auto) 3.1 Baso % (Auto) 0.5 Lymph # (Auto) 2.4 [place] # (Auto) 0.8 Eos # (Auto) 0.2 Baso # (Auto) 0.0 Abs Immat Gran (auto) 0.01 Absolute Neuts (auto) 4.1 Absolute Nucleated RBC 0.000 Nucleated RBC % (auto) 0.0 Sodium 140 Potassium 4.1 Chloride 105 Carbon Dioxide 29 Anion Gap 10 L BUN 35 H D Creatinine 1.42 H Estim Creat Clear Calc 65.3 Estimated GFR 52 Random Glucose 116 H Fasting Glucose Estimat Average Glucose Hemoglobin A1c % Calcium 9.7 Magnesium Total Bilirubin 1.2 H AST 27 D ALT 27 Alkaline Phosphatase 74 D Total Protein 6.7 Albumin 3.8 Triglycerides Cholesterol LDL Cholesterol, Calc HDL Cholesterol Vitamin B12 Folate TSH Free T4 Urine Color YELLOW Urine Appearance HAZY Urine pH 6.0 Ur Specific [place] >= 1.030 H Urine Protein NEG Urine Glucose (UA) NEG Urine Ketones 15 Urine Blood NEG Urine Nitrite NEG Ur Leukocyte Esterase NEG Urine Opiates Screen Urine Fentanyl Screen Ur Barbiturates Screen Ur Phencyclidine Scrn Ur Amphetamines Screen U Benzodiazepines Scrn Urine Cocaine Screen U Marijuana (THC) Screen Ethyl Alcohol COVID-19 ([place]) COVID-19 [employer] Com 11/30/21 12/01/21 12/01/21 21:29 08:35 08:35 WBC RBC Hgb Hct MCV MCH MCHC RDW Plt Count MPV Immature Gran % (Auto) Neut % (Auto) Lymph % (Auto) [place] % (Auto) Eos % (Auto) Baso % (Auto) Lymph # (Auto) [place] # (Auto) Eos # (Auto) Baso # (Auto) Abs Immat Gran (auto) Absolute Neuts (auto) Absolute Nucleated RBC Nucleated RBC % (auto) Sodium 141 140 Potassium 4.3 4.4 Chloride 106 109 H Carbon Dioxide 32 H 29 Anion Gap 7 L 6 L BUN 34 H 31 H Creatinine 1.42 H 1.06 Estim Creat Clear Calc 65.3 87.0 Estimated GFR 52 > 60 Random Glucose 83 Fasting Glucose 94 Estimat Average Glucose 103 Hemoglobin A1c % 5.2 Calcium 9.1 D 9.3 Magnesium 1.9 Total Bilirubin 0.3 AST 19 ALT 22 Alkaline Phosphatase 67 Total Protein 6.1 L Albumin 3.5 Triglycerides 136 Cholesterol 136 LDL Cholesterol, Calc 69 HDL Cholesterol 40 Vitamin B12 Folate TSH 1.03 Free T4 1.01 Urine Color Urine Appearance Urine pH Ur Specific [place] Urine Protein Urine Glucose (UA) Urine Ketones Urine Blood Urine Nitrite Ur Leukocyte Esterase Urine Opiates Screen Urine Fentanyl Screen Ur Barbiturates Screen Ur Phencyclidine Scrn Ur Amphetamines Screen U Benzodiazepines Scrn Urine Cocaine Screen U Marijuana (THC) Screen Ethyl Alcohol COVID-19 ([place]) COVID-19 [employer] Com 12/01/21 08:35 WBC RBC Hgb Hct MCV MCH MCHC RDW Plt Count MPV Immature Gran % (Auto) Neut % (Auto) Lymph % (Auto) [place] % (Auto) Eos % (Auto) Baso % (Auto) Lymph # (Auto) [place] # (Auto) Eos # (Auto) Baso # (Auto) Abs Immat Gran (auto) Absolute Neuts (auto) Absolute Nucleated RBC Nucleated RBC % (auto) Sodium Potassium Chloride Carbon Dioxide Anion Gap BUN Creatinine Estim Creat Clear Calc Estimated GFR Random Glucose Fasting Glucose Estimat Average Glucose Hemoglobin A1c % Calcium Magnesium Total Bilirubin AST ALT Alkaline Phosphatase Total Protein Albumin Triglycerides Cholesterol LDL Cholesterol, Calc HDL Cholesterol Vitamin B12 548 Folate 16.0 TSH Free T4 Urine Color Urine Appearance Urine pH Ur Specific [place] Urine Protein Urine Glucose (UA) Urine Ketones Urine Blood Urine Nitrite Ur Leukocyte Esterase Urine Opiates Screen Urine Fentanyl Screen Ur Barbiturates Screen Ur Phencyclidine Scrn Ur Amphetamines Screen U Benzodiazepines Scrn Urine Cocaine Screen U Marijuana (THC) Screen Ethyl Alcohol COVID-19 ([place]) COVID-19 Clin Com Medications Medications Current Medications Acetaminophen (Acetaminophen 325 Mg Tablet) 650 mg PO Q6H PRN PRN Reason: Headache/Pain Mild Scale (1-3) Al Hydroxide/Mg Hydroxide (Magnesium Hydrox/Alum Hydrox 30 Ml Oral.Susp) 30 ml PO Q6H PRN PRN Reason: Heartburn/Nausea Buprenorphine/Naloxone (Buprenorphine/Naloxone 8/2 Mg Film) 1 film SUBLINGUAL BID@0800,1800 [facility] Last Admin: 12/01/21 09:05 Dose: 1 film Documented by: Buprenorphine/Naloxone (Buprenorphine/Naloxone 4/1 Mg Film) 1 film SUBLINGUAL DAILY@1200 [facility] Last Admin: 12/01/21 12:48 Dose: 1 film Documented by: Fluoxetine HCl (Fluoxetine Hcl 10 Mg Capsule) 30 mg PO DAILY [facility] Last Admin: 12/01/21 09:05 Dose: 30 mg Documented by: Folic Acid (Folic Acid 1 Mg Tablet) 1 mg PO DAILY [facility] Last Admin: 12/01/21 09:05 Dose: 1 mg Documented by: Hydroxyzine HCl (Hydroxyzine Hcl 25 Mg Tablet) 25 mg PO Q6H PRN PRN Reason: Anxiety Magnesium Hydroxide (Milk Of Magnesia 30 Ml Oral.Susp) 30 ml PO DAILY PRN PRN Reason: Constipation Naproxen (Naproxen 500 Mg Tablet) 500 mg PO Q12H PRN PRN Reason: mod-severe pain Nicotine (Nicotine 21 Mg Patch.Td24) 21 mg TRANSDERMA DAILY PRN PRN Reason: nicotine withdrawal Nicotine Polacrilex (Nicotine Polacrilex 2 Mg Gum) 2 mg BUCCAL Q2H PRN PRN Reason: Nicotine Cravings Nicotine Polacrilex (Nicotine Polacrilex 2 Mg Gum) 4 mg BUCCAL Q2H PRN PRN Reason: nicotine withdrawal Olanzapine (Olanzapine 10 Mg Tablet) 10 mg PO BEDTIME [facility] Last Admin: 11/30/21 21:27 Dose: 10 mg Documented by: Prazosin HCl (Prazosin Hcl 1 Mg Capsule) 4 mg PO BEDTIME RAS; Protocol Last Admin: 11/30/21 21:28 Dose: 4 mg Documented by: Trazodone HCl (Trazodone Hcl 50 Mg Tablet) 50 mg PO BEDTIME PRN PRN Reason: Insomnia Allergies Allergies Allergy/AdvReac Type Severity Reaction Status Date / Time No Known Allergies Allergy Verified 08/27/21 00:53 [No Known Allergies*] Assessment & Plan Assessment & Plan (1) Alcohol use disorder, moderate, dependence: Status: Acute Code(s): F10.20 - Alcohol dependence, uncomplicated (2) Opioid use disorder, moderate, in early remission, on maintenance therapy, dependence: Status: Acute Code(s): F11.21 - Opioid dependence, in remission (3) Chronic post-traumatic stress disorder (PTSD): Status: Acute Code(s): F43.12 - Post-traumatic stress disorder, chronic Plan Plan: Pt does not want medication changes at this time, says he has been non- adherent with medication for a couple days prior to admission. Utox positive for opioids, fentanyl, and cocaine. Last used half a bag of heroin on 11/29/21, re- started on suboxone in the ED. allow several days for detox and then reassess mood and meds. I spent ___25___ minutes with the patient and/or on the patient floor today, g reater than?50% of which was spent counseling/coordinating care. Reason for contiued inpatient stay Substantial Risk for: harm to self, inability to function and rapid decompensation
[2021-12-01 22:02] VITALS: BP 129/77; PULSE 79; RESP 18; TEMP 36.5
[2021-12-01] MEDS: Prazosin HCL 1 MG CAPSULE 4 MG PO (22:05)
[2021-12-01] MEDS: NaPROXEN 500 MG TABLET PO (22:05)
[2021-12-01] MEDS: OLANZapine 10 MG TABLET PO (22:05)
[2021-12-02 06:00] VITALS: BP 133/64; PULSE 62; RESP 16; TEMP 36.6; O2SAT 96
[2021-12-02] MEDS: Folic Acid 1 MG TABLET PO (09:43)
[2021-12-02] MEDS: FLUoxetine HCl 10 MG CAPSULE 30 MG PO (09:43)
[2021-12-02] MEDS: Buprenorphine/Naloxone 8/2 mg FILM 1 FILM SUBLINGUAL ×2 (09:43→18:19)
[2021-12-02] MEDS: Buprenorphine/Naloxone 4/1 mg FILM 1 FILM SUBLINGUAL (13:19)
--- NOTE | 2021-12-02 15:03 | HO.PSYCHPN ---
Subjective Subjective Date of Service: 12/02/21 Reason For Visit: Depression, SI, Substance Abuse Subjective Notes: Conditional Voluntary Interim History: met with patient. Discussed with Nursing. 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 Reports feeling safe and supported on the unit. Does endorse feeling depressed with intermittent suicidal thoughts. No plans or intent. No aggression. Still having command hallucinations but reports they are slightly less intense with more time off cocaine and restarting medications such as Zyprexa. Sleep has been poor but has also been reluctant to take p.r.n. medications. Intermittent group attendance. Appetite okay. Asking for Ensure. Medication Compliance: Yes Side effects from medications: No Attending Groups: Intermittent Review of Systems Acute medical concerns: No Review of Systems Review of Systems Unremarkable Mental Status Exam Mental Status Exam Narrative: hospital clothing. Engaged. Fair hygiene. Organized. Depressed. Intermittent SI but no plans or intent. No HI. No agitation. Endorses auditory hallucinations that he should kill himself. No overt delusions. Insight and judgment okay Diagnostics Vital Signs (24Hr): Vital Signs - 24 hr 12/01/21 22:02 12/02/21 06:00 Temperature 97.7 F 97.9 F Pulse Rate 79 62 Respiratory Rate 18 16 Blood Pressure 129/77 133/64 Pulse Oximetry 96 BMI result Body Mass Index 30.3 Labs Results: 11/30/21 16:48 12/01/21 08:35 Labs: Laboratory Results - last 48 hr 11/30/21 11/30/21 11/30/21 16:48 16:48 21:29 WBC 7.7 RBC 4.66 Hgb 13.8 L Hct 40.1 L MCV 86.1 MCH 29.6 MCHC 34.4 RDW 13.2 Plt Count 202 MPV 10.0 Immature Gran % (Auto) 0.1 Neut % (Auto) 53.7 Lymph % (Auto) 31.6 [place] % (Auto) 11.0 Eos % (Auto) 3.1 Baso % (Auto) 0.5 Lymph # (Auto) 2.4 [place] # (Auto) 0.8 Eos # (Auto) 0.2 Baso # (Auto) 0.0 Abs Immat Gran (auto) 0.01 Absolute Neuts (auto) 4.1 Absolute Nucleated RBC 0.000 Nucleated RBC % (auto) 0.0 Sodium 140 141 Potassium 4.1 4.3 Chloride 105 106 Carbon Dioxide 29 32 H Anion Gap 10 L 7 L BUN 35 H D 34 H Creatinine 1.42 H 1.42 H Estim Creat Clear Calc 65.3 65.3 Estimated GFR 52 52 Random Glucose 116 H 83 Fasting Glucose Estimat Average Glucose Hemoglobin A1c % Calcium 9.7 9.1 D Magnesium Total Bilirubin 1.2 H AST 27 D ALT 27 Alkaline Phosphatase 74 D Total Protein 6.7 Albumin 3.8 Triglycerides Cholesterol LDL Cholesterol, Calc HDL Cholesterol Vitamin B12 Folate TSH Free T4 12/01/21 12/01/21 12/01/21 08:35 08:35 08:35 WBC RBC Hgb Hct MCV MCH MCHC RDW Plt Count MPV Immature Gran % (Auto) Neut % (Auto) Lymph % (Auto) [place] % (Auto) Eos % (Auto) Baso % (Auto) Lymph # (Auto) [place] # (Auto) Eos # (Auto) Baso # (Auto) Abs Immat Gran (auto) Absolute Neuts (auto) Absolute Nucleated RBC Nucleated RBC % (auto) Sodium 140 Potassium 4.4 Chloride 109 H Carbon Dioxide 29 Anion Gap 6 L BUN 31 H Creatinine 1.06 Estim Creat Clear Calc 87.0 Estimated GFR > 60 Random Glucose Fasting Glucose 94 Estimat Average Glucose 103 Hemoglobin A1c % 5.2 Calcium 9.3 Magnesium 1.9 Total Bilirubin 0.3 AST 19 ALT 22 Alkaline Phosphatase 67 Total Protein 6.1 L Albumin 3.5 Triglycerides 136 Cholesterol 136 LDL Cholesterol, Calc 69 HDL Cholesterol 40 Vitamin B12 548 Folate 16.0 TSH 1.03 Free T4 1.01 Medications Medications Current Medications Acetaminophen (Acetaminophen 325 Mg Tablet) 650 mg PO Q6H PRN PRN Reason: Headache/Pain Mild Scale (1-3) Al Hydroxide/Mg Hydroxide (Magnesium Hydrox/Alum Hydrox 30 Ml Oral.Susp) 30 ml PO Q6H PRN PRN Reason: Heartburn/Nausea Buprenorphine/Naloxone (Buprenorphine/Naloxone 8/2 Mg Film) 1 film SUBLINGUAL BID@0800,1800 [facility] Last Admin: 12/02/21 09:43 Dose: 1 film Documented by: Buprenorphine/Naloxone (Buprenorphine/Naloxone 4/1 Mg Film) 1 film SUBLINGUAL DAILY@1200 [facility] Last Admin: 12/02/21 13:19 Dose: 1 film Documented by: Fluoxetine HCl (Fluoxetine Hcl 10 Mg Capsule) 30 mg PO DAILY [facility] Last Admin: 12/02/21 09:43 Dose: 30 mg Documented by: Folic Acid (Folic Acid 1 Mg Tablet) 1 mg PO DAILY [facility] Last Admin: 12/02/21 09:43 Dose: 1 mg Documented by: Hydroxyzine HCl (Hydroxyzine Hcl 25 Mg Tablet) 25 mg PO Q6H PRN PRN Reason: Anxiety Magnesium Hydroxide (Milk Of Magnesia 30 Ml Oral.Susp) 30 ml PO DAILY PRN PRN Reason: Constipation Naproxen (Naproxen 500 Mg Tablet) 500 mg PO Q12H PRN PRN Reason: mod-severe pain Last Admin: 12/01/21 22:05 Dose: 500 mg Documented by: Nicotine (Nicotine 21 Mg Patch.Td24) 21 mg TRANSDERMA DAILY PRN PRN Reason: nicotine withdrawal Nicotine Polacrilex (Nicotine Polacrilex 2 Mg Gum) 2 mg BUCCAL Q2H PRN PRN Reason: Nicotine Cravings Nicotine Polacrilex (Nicotine Polacrilex 2 Mg Gum) 4 mg BUCCAL Q2H PRN PRN Reason: nicotine withdrawal Olanzapine (Olanzapine 10 Mg Tablet) 10 mg PO BEDTIME [facility] Last Admin: 12/01/21 22:05 Dose: 10 mg Documented by: Prazosin HCl (Prazosin Hcl 1 Mg Capsule) 4 mg PO BEDTIME [facility]; Protocol Last Admin: 12/01/21 22:05 Dose: 4 mg Documented by: Trazodone HCl (Trazodone Hcl 50 Mg Tablet) 50 mg PO BEDTIME PRN PRN Reason: Insomnia Allergies Allergies Allergy/AdvReac Type Severity Reaction Status Date / Time No Known Allergies Allergy Verified 08/27/21 00:53 [No Known Allergies*] Assessment & Plan Assessment & Plan (1) Alcohol use disorder, moderate, dependence: Status: Acute Code(s): F10.20 - Alcohol dependence, uncomplicated (2) Opioid use disorder, moderate, in early remission, on maintenance therapy, dependence: Status: Acute Code(s): F11.21 - Opioid dependence, in remission (3) Chronic post-traumatic stress disorder (PTSD): Status: Acute Code(s): F43.12 - Post-traumatic stress disorder, chronic Plan Cornell is a 56 y.o. male who carries a dx of PTSD, depression and chronic substance abuse. Hx of previous admissions to [facility] for depression, SI.?Pt presented to [facility] on 11/30/21 reporting SI without plan or intent, depression. Pt reports poor adherence with medication, has not taken meds x 1 week. Plan: Pt does not want medication changes at this time, says he has been non-adherent with medication for a couple days prior to admission. Utox positive for opioids, fentanyl, and cocaine. Last used half a bag of heroin on 11/29/21, re-started on suboxone and home meds in the ED setting. Denies withdrawal sx. Q15 min safety checks, CV Monitor response to medications. Monitor for safety in the milieu. Discharge on stabilization. Patient seen. Chart reviewed. Discussed with team. Obtain collateral contact info?as needed 12/02/2021: No changes to current treatment plan as just restarted medications 2 days ago. Will continue to review if there are ongoing issues especially around sleep. I spent minutes with the patient and/or on the patient floor today, greater than?50% of which was spent counseling/coordinating care. Reason for contiued inpatient stay Substantial Risk for: harm to self
[2021-12-02 21:18] VITALS: BP 127/75; PULSE 68; RESP 18; TEMP 37; O2SAT 95
[2021-12-02] MEDS: OLANZapine 10 MG TABLET PO (21:20)
[2021-12-02] MEDS: NaPROXEN 500 MG TABLET PO (21:20)
[2021-12-02] MEDS: Prazosin HCL 1 MG CAPSULE 4 MG PO (21:20)
[2021-12-03 06:00] VITALS: BP 138/80; PULSE 70; RESP 18; TEMP 37.1; O2SAT 96
[2021-12-03] MEDS: Folic Acid 1 MG TABLET PO (10:13)
[2021-12-03] MEDS: Buprenorphine/Naloxone 8/2 mg FILM 1 FILM SUBLINGUAL ×2 (10:13→18:44)
[2021-12-03] MEDS: FLUoxetine HCl 10 MG CAPSULE 30 MG PO (10:13)
[2021-12-03] MEDS: NaPROXEN 500 MG TABLET PO (10:16)
[2021-12-03] MEDS: Buprenorphine/Naloxone 4/1 mg FILM 1 FILM SUBLINGUAL (12:30)
--- NOTE | 2021-12-03 12:36 | P.PNPSI_ITS ---
Subjective Subjective Date of Service: 12/03/21 Reason For Visit: Depression, SI, Substance Abuse Subjective Notes: Conditional Voluntary Interim History: met with patient. Discussed with Nursing. Sleep poor- attributes same to environment and AH. Reports feeling safe and supported on the unit. Does endorse feeling depressed with intermittent suicidal thoughts. No plans or intent. No aggression. Intermittent group attendance. Appetite okay. Agrees to higher olanzapine dose. Medication Compliance: Yes Side effects from medications: No Attending Groups: No Review of Systems Review of Systems Unremarkable Mental Status Exam Mental Status Exam Narrative: hospital clothing. Engaged. Fair hygiene. Organized. Depressed. Intermittent SI but no plans or intent. No HI. No agitation. Endorses andrews tory hallucinations that he should kill himself. No overt delusions. Insight and judgment okay Diagnostics Vital Signs (24Hr): Vital Signs - 24 hr 12/02/21 21:18 Temperature 98.6 F Pulse Rate 68 Respiratory Rate 18 Blood Pressure 127/75 Pulse Oximetry 95 BMI result Body Mass Index 30.3 Labs Results: 11/30/21 16:48 12/01/21 08:35 Medications Medications Current Medications Acetaminophen (Acetaminophen 325 Mg Tablet) 650 mg PO Q6H PRN PRN Reason: Headache/Pain Mild Scale (1-3) Al Hydroxide/Mg Hydroxide (Magnesium Hydrox/Alum Hydrox 30 Ml Oral.Susp) 30 ml PO Q6H PRN PRN Reason: Heartburn/Nausea Buprenorphine/Naloxone (Buprenorphine/Naloxone 8/2 Mg Film) 1 film SUBLINGUAL BID@0800,1800 [facility] Last Admin: 12/03/21 10:13 Dose: 1 film Documented by: Buprenorphine/Naloxone (Buprenorphine/Naloxone 4/1 Mg Film) 1 film SUBLINGUAL DAILY@1200 [facility] Last Admin: 12/03/21 12:30 Dose: 1 film Documented by: Fluoxetine HCl (Fluoxetine Hcl 10 Mg Capsule) 30 mg PO DAILY [facility] Last Admin: 12/03/21 10:13 Dose: 30 mg Documented by: Folic Acid (Folic Acid 1 Mg Tablet) 1 mg PO DAILY [facility] Last Admin: 12/03/21 10:13 Dose: 1 mg Documented by: Hydroxyzine HCl (Hydroxyzine Hcl 25 Mg Tablet) 25 mg PO Q6H PRN PRN Reason: Anxiety Magnesium Hydroxide (Milk Of Magnesia 30 Ml Oral.Susp) 30 ml PO DAILY PRN PRN Reason: Constipation Naproxen (Naproxen 500 Mg Tablet) 500 mg PO Q12H PRN PRN Reason: mod-severe pain Last Admin: 12/03/21 10:16 Dose: 500 mg Documented by: Nicotine (Nicotine 21 Mg Patch.Td24) 21 mg TRANSDERMA DAILY PRN PRN Reason: nicotine withdrawal Nicotine Polacrilex (Nicotine Polacrilex 2 Mg Gum) 2 mg BUCCAL Q2H PRN PRN Reason: Nicotine Cravings Nicotine Polacrilex (Nicotine Polacrilex 2 Mg Gum) 4 mg BUCCAL Q2H PRN PRN Reason: nicotine withdrawal Olanzapine (Olanzapine 10 Mg Tablet) 10 mg PO BEDTIME [facility] Last Admin: 12/02/21 21:20 Dose: 10 mg Documented by: Prazosin HCl (Prazosin Hcl 1 Mg Capsule) 4 mg PO BEDTIME [facility]; Protocol Last Admin: 12/02/21 21:20 Dose: 4 mg Documented by: Trazodone HCl (Trazodone Hcl 50 Mg Tablet) 50 mg PO BEDTIME PRN PRN Reason: Insomnia Allergies Allergies Allergy/AdvReac Type Severity Reaction Status Date / Time No Known Allergies Allergy Verified 08/27/21 00:53 [No Known Allergies*] Assessment & Plan Assessment & Plan (1) Alcohol use disorder, moderate, dependence: Status: Acute Code(s): F10.20 - Alcohol dependence, uncomplicated (2) Opioid use disorder, moderate, in early remission, on maintenance therapy, dependence: Status: Acute Code(s): F11.21 - Opioid dependence, in remission (3) Chronic post-traumatic stress disorder (PTSD): Status: Acute Code(s): F43.12 - Post-traumatic stress disorder, chronic Plan Cornell is a 56 y.o. male who carries a dx of PTSD, depression and chronic substance abuse. Hx of previous admissions to [facility] for [place], SI.?Pt presented to [facility] on 11/30/21 reporting SI without plan or intent, depression. Pt reports poor adherence with medication, has not taken meds x 1 week. Plan: Pt does not want medication changes at this time, says he has been non- adherent with medication for a couple days prior to admission. Utox positive for opioids, fentanyl, and cocaine. Last used half a bag of heroin on 11/29/21, re- started on suboxone and home meds in the ED setting. Denies withdrawal sx. Q15 min safety checks, CV Monitor response to medications. Monitor for safety in the milieu. Discharge on stabilization. Patient seen. Chart reviewed. Discussed with team. Obtain collateral contact info?as needed 12/03/2021: Increase olanzapine to 15mg at bedtime I spent minutes with the patient and/or on the patient floor today, greater than?50% of which was spent counseling/coordinating care. Reason for contiued inpatient stay Substantial Risk for: harm to self
[2021-12-03 22:05] VITALS: BP 131/68; PULSE 81; RESP 18; TEMP 36.4; O2SAT 95
[2021-12-03] MEDS: OLANZapine 7.5 MG TABLET 15 MG PO (22:07)
[2021-12-03] MEDS: Prazosin HCL 1 MG CAPSULE 4 MG PO (22:08)
[2021-12-04] MEDS: Folic Acid 1 MG TABLET PO (09:36)
[2021-12-04] MEDS: Buprenorphine/Naloxone 8/2 mg FILM 1 FILM SUBLINGUAL ×2 (09:36→18:43)
[2021-12-04] MEDS: FLUoxetine HCl 10 MG CAPSULE 30 MG PO (09:36)
[2021-12-04 09:43] VITALS: BP 128/66; PULSE 68; RESP 17; TEMP 36.8; O2SAT 95
[2021-12-04] MEDS: Buprenorphine/Naloxone 4/1 mg FILM 1 FILM SUBLINGUAL (12:24)
--- NOTE | 2021-12-04 13:24 | P.PNPSI_ITS ---
Subjective Subjective Date of Service: 12/04/21 Reason For Visit: Depression, SI, Substance Abuse Interim History: pt reports he continues to hear CAH to harm himself. he describes his mood as here and there. nervous. he reports he slept, but not great. agreeable to apercreme and capsaicin Rx for his knee pain. VS reviewed, WNL/elevated. agreeable to increase prazosin at HS to 5 mg. per staff, poor sleep saturday. c/o CAH to harm self. denied SI/HI. 03/14 dep and 12/12 anx. isolative, med- compliant. eating well. HS zyprexa increased. c/o right knee pain. Mental Status Exam Mental Status Exam Narrative: A&O. seated at table in milieu, adequate grooming. fair eye contact, attentive. No Tics or Tremors. No abnormal involuntary movements. Calm, cooperative. Non-pressured speech, spontaneous with regular rate and rhythm, normal volume and prosody. No prolonged speech latency or dysarthria. Mood is ?here and there. nervous. affect is constricted. no SI/HI expressed. endorses CAH. Thoughts are concrete, goal oriented. No known cognitive or memory impairment. Insight/ Judgment limited due to chronic substance use. Diagnostics Vital Signs (24Hr): Vital Signs - 24 hr 12/03/21 22:05 12/04/21 09:43 Temperature 97.5 F 98.3 F Pulse Rate 81 68 Respiratory Rate 18 17 Blood Pressure 131/68 128/66 Pulse Oximetry 95 95 BMI result Body Mass Index 30.3 Labs Results: 11/30/21 16:48 12/01/21 08:35 Medications Medications Current Medications Acetaminophen (Acetaminophen 325 Mg Tablet) 650 mg PO Q6H PRN PRN Reason: Headache/Pain Mild Scale (1-3) Al Hydroxide/Mg Hydroxide (Magnesium Hydrox/Alum Hydrox 30 Ml Oral.Susp) 30 ml PO Q6H PRN PRN Reason: Heartburn/Nausea Buprenorphine/Naloxone (Buprenorphine/Naloxone 8/2 Mg Film) 1 film SUBLINGUAL BID@0800,1800 [facility] Last Admin: 12/04/21 09:36 Dose: 1 film Documented by: Buprenorphine/Naloxone (Buprenorphine/Naloxone 4/1 Mg Film) 1 film SUBLINGUAL DAILY@1200 [facility] Last Admin: 12/04/21 12:24 Dose: 1 film Documented by: Capsaicin (Capsaicin 0.025% Cream 60 Gm Tube) 1 appl TOPICAL QID PRN; Protocol PRN Reason: knee pain Fluoxetine HCl (Fluoxetine Hcl 10 Mg Capsule) 30 mg PO DAILY [facility] Last Admin: 12/04/21 09:36 Dose: 30 mg Documented by: Folic Acid (Folic Acid 1 Mg Tablet) 1 mg PO DAILY [facility] Last Admin: 12/04/21 09:36 Dose: 1 mg Documented by: Hydroxyzine HCl (Hydroxyzine Hcl 25 Mg Tablet) 25 mg PO Q6H PRN PRN Reason: Anxiety Magnesium Hydroxide (Milk Of Magnesia 30 Ml Oral.Susp) 30 ml PO DAILY PRN PRN Reason: Constipation Naproxen (Naproxen 500 Mg Tablet) 500 mg PO Q12H PRN PRN Reason: mod-severe pain Last Admin: 12/03/21 10:16 Dose: 500 mg Documented by: Nicotine (Nicotine 21 Mg Patch.Td24) 21 mg TRANSDERMA DAILY PRN PRN Reason: nicotine withdrawal Nicotine Polacrilex (Nicotine Polacrilex 2 Mg Gum) 2 mg BUCCAL Q2H PRN PRN Reason: Nicotine Cravings Nicotine Polacrilex (Nicotine Polacrilex 2 Mg Gum) 4 mg BUCCAL Q2H PRN PRN Reason: nicotine withdrawal Olanzapine (Olanzapine 7.5 Mg Tablet) 15 mg PO BEDTIME [facility] Last Admin: 12/03/21 22:07 Dose: 15 mg Documented by: Prazosin HCl (Prazosin Hcl 5 Mg Capsule) 5 mg PO BEDTIME [facility]; Protocol Trazodone HCl (Trazodone Hcl 50 Mg Tablet) 50 mg PO BEDTIME PRN PRN Reason: Insomnia Trolamine Salicylate/Aloe Vera (Trolamine Salicylate 10%/Aloe Cream 35.4 Gm) 1 appl TOPICAL QID PRN PRN Reason: knee pain Allergies Allergies Allergy/AdvReac Type Severity Reaction Status Date / Time No Known Allergies Allergy Verified 08/27/21 00:53 [No Known Allergies*] Assessment & Plan Assessment & Plan (1) Alcohol use disorder, moderate, dependence: Status: Acute Code(s): F10.20 - Alcohol dependence, uncomplicated (2) Opioid use disorder, moderate, in early remission, on maintenance therapy, dependence: Status: Acute Code(s): F11.21 - Opioid dependence, in remission (3) Chronic post-traumatic stress disorder (PTSD): Status: Acute Code(s): F43.12 - Post-traumatic stress disorder, chronic Plan Cornell is a 56 y.o. male who carries a dx of PTSD, depression and chronic substance abuse. Hx of previous admissions to [facility] for [place], SI.?Pt presented to [facility] on 11/30/21 reporting SI without plan or intent, depression. Pt reports poor adherence with medication, has not taken meds x 1 week. Plan: Pt does not want medication changes at this time, says he has been non- adherent with medication for a couple days prior to admission. Utox positive for opioids, fentanyl, and cocaine. Last used half a bag of heroin on 11/29/21, re- started on suboxone and home meds in the ED setting. Denies withdrawal sx. Q15 min safety checks, CV Monitor response to medications. Monitor for safety in the milieu. Discharge on stabilization. Patient seen. Chart reviewed. Discussed with team. Obtain collateral contact info?as needed 12/03/2021: Increased olanzapine to 15mg at bedtime 12/04: increased prazosin to 5 mg QHS. I spent __20____ minutes with the patient and/or on the patient floor today, greater than?50% of which was spent counseling/coordinating care. Reason for contiued inpatient stay Substantial Risk for: harm to self, inability to function and rapid decompensation
[2021-12-04 22:10] VITALS: BP 135/74; PULSE 90; RESP 18; TEMP 36.8; O2SAT 96
[2021-12-04] MEDS: OLANZapine 7.5 MG TABLET 15 MG PO (22:10)
[2021-12-04] MEDS: Prazosin HCL 5 MG CAPSULE PO (22:10)
[2021-12-04] MEDS: NaPROXEN 500 MG TABLET PO (22:10)
[2021-12-05 08:45] VITALS: BP 129/77; PULSE 66; RESP 18; TEMP 36.6; O2SAT 95
[2021-12-05] MEDS: Buprenorphine/Naloxone 8/2 mg FILM 1 FILM SUBLINGUAL ×2 (09:19→18:34)
[2021-12-05] MEDS: Folic Acid 1 MG TABLET PO (09:19)
[2021-12-05] MEDS: FLUoxetine HCl 10 MG CAPSULE 30 MG PO (09:19)
[2021-12-05] MEDS: Acetaminophen 325 MG TABLET 650 MG PO (09:19)
[2021-12-05] MEDS: Capsaicin 0.025% Cream 60 GM TUBE 1 APPL TOPICAL (09:20)
[2021-12-05] MEDS: NaPROXEN 500 MG TABLET PO ×2 (12:17→21:15)
[2021-12-05] MEDS: Buprenorphine/Naloxone 4/1 mg FILM 1 FILM SUBLINGUAL (12:17)
--- NOTE | 2021-12-05 14:25 | P.PNPSI_ITS ---
Subjective Subjective Date of Service: 12/05/21 Reason For Visit: Depression, SI, Substance Abuse Interim History: pt calm ands cooperative, subdued, constricted. states he continues improved from previous. CAH continue but he has no intent or plan to harm himself. agreeable to increase prozac to 40 mg daily. c/o MNA and agrees to increase prazosin to 6 mg at bedtime. asking for ensure, which he states he was taking outside that hospital as at last admission it had been recommended for him by dietary; consult placed for dietitian consult. pt met with SW today and discussed aftercare planning. thinking of DC late this week or early next week. per staff, CAH to harm self continue, no intent. isolative, taking meds, eating meals. visible in the milieu, social. slept well overnight. Mental Status Exam Mental Status Exam Narrative: A&O. seated at table in milieu, adequate grooming. fair eye contact, attentive. No Tics or Tremors. No abnormal involuntary movements. Calm, cooperative. Non- pressured speech, spontaneous with regular rate and rhythm, normal volume and prosody. No prolonged speech latency or dysarthria. affect is constricted. no SI/HI expressed. endorses CAH. Thoughts are concrete, goal oriented. No known cognitive or memory impairment. Insight/ Judgment limited due to chronic substance use. Diagnostics Vital Signs (24Hr): Vital Signs - 24 hr 12/04/21 22:10 12/05/21 08:45 Temperature 98.2 F 97.9 F Pulse Rate 90 66 Respiratory Rate 18 18 Blood Pressure 135/74 129/77 Pulse Oximetry 96 95 BMI result Body Mass Index 30.3 Labs Results: 11/30/21 16:48 12/01/21 08:35 Medications Medications Current Medications Acetaminophen (Acetaminophen 325 Mg Tablet) 650 mg PO Q6H PRN PRN Reason: Headache/Pain Mild Scale (1-3) Last Admin: 12/05/21 09:19 Dose: 650 mg Documented by: Al Hydroxide/Mg Hydroxide (Magnesium Hydrox/Alum Hydrox 30 Ml Oral.Susp) 30 ml PO Q6H PRN PRN Reason: Heartburn/Nausea Buprenorphine/Naloxone (Buprenorphine/Naloxone 8/2 Mg Film) 1 film SUBLINGUAL BID@0800,1800 [facility] Last Admin: 12/05/21 09:19 Dose: 1 film Documented by: Buprenorphine/Naloxone (Buprenorphine/Naloxone 4/1 Mg Film) 1 film SUBLINGUAL DAILY@1200 [facility] Last Admin: 12/05/21 12:17 Dose: 1 film Documented by: Capsaicin (Capsaicin 0.025% Cream 60 Gm Tube) 1 appl TOPICAL QID PRN; Protocol PRN Reason: knee pain Last Admin: 12/05/21 09:20 Dose: 1 appl Documented by: Cyanocobalamin (Cyanocobalamin (Vitamin B-12) 100 Mcg Tablet) 100 mcg PO DAILY [facility] Fluoxetine HCl (Fluoxetine Hcl 20 Mg Capsule) 40 mg PO DAILY [facility] Folic Acid (Folic Acid 1 Mg Tablet) 1 mg PO DAILY [facility] Last Admin: 12/05/21 09:19 Dose: 1 mg Documented by: Hydroxyzine HCl (Hydroxyzine Hcl 25 Mg Tablet) 25 mg PO Q6H PRN PRN Reason: Anxiety Magnesium Hydroxide (Milk Of Magnesia 30 Ml Oral.Susp) 30 ml PO DAILY PRN PRN Reason: Constipation Multivitamins/Vitamin C (Multivitamin Tablet) 1 tab PO DAILY [facility] Naproxen (Naproxen 500 Mg Tablet) 500 mg PO Q12H PRN PRN Reason: mod-severe pain Last Admin: 12/05/21 12:17 Dose: 500 mg Documented by: Nicotine (Nicotine 21 Mg Patch.Td24) 21 mg TRANSDERMA DAILY PRN PRN Reason: nicotine withdrawal Nicotine Polacrilex (Nicotine Polacrilex 2 Mg Gum) 2 mg BUCCAL Q2H PRN PRN Reason: Nicotine Cravings Nicotine Polacrilex (Nicotine Polacrilex 2 Mg Gum) 4 mg BUCCAL Q2H PRN PRN Reason: nicotine withdrawal Olanzapine (Olanzapine 7.5 Mg Tablet) 15 mg PO BEDTIME [facility] Last Admin: 12/04/21 22:10 Dose: 15 mg Documented by: Prazosin HCl (Prazosin Hcl 1 Mg Capsule) 6 mg PO BEDTIME [facility]; Protocol Trazodone HCl (Trazodone Hcl 50 Mg Tablet) 50 mg PO BEDTIME PRN PRN Reason: Insomnia Trolamine Salicylate/Aloe Vera (Trolamine Salicylate 10%/Aloe Cream 35.4 Gm) 1 appl TOPICAL QID PRN PRN Reason: knee pain Last Admin: 12/05/21 09:21 Dose: 1 appl Documented by: Allergies Allergies Allergy/AdvReac Type Severity Reaction Status Date / Time No Known Allergies Allergy Verified 08/27/21 00:53 [No Known Allergies*] Assessment & Plan Assessment & Plan (1) Alcohol use disorder, moderate, dependence: Status: Acute Code(s): F10.20 - Alcohol dependence, uncomplicated (2) Opioid use disorder, moderate, in early remission, on maintenance therapy, dependence: Status: Acute Code(s): F11.21 - Opioid dependence, in remission (3) Chronic post-traumatic stress disorder (PTSD): Status: Acute Code(s): F43.12 - Post-traumatic stress disorder, chronic Plan Cornell is a 56 y.o. male who carries a dx of PTSD, depression and chronic substance abuse. Hx of previous admissions to [facility] [place] for depression, SI.?Pt presented to [facility] on 11/30/21 reporting SI without plan or intent, depression. Pt reports poor adherence with medication, has not taken meds x 1 week. Plan: Pt does not want medication changes at this time, says he has been non- adherent with medication for a couple days prior to admission. Utox positive for opioids, fentanyl, and cocaine. Last used half a bag of heroin on 11/29/21, re- started on suboxone and home meds in the ED setting. Denies withdrawal sx. Q15 min safety checks, CV Monitor response to medications. Monitor for safety in the milieu. Discharge on stabilization. Patient seen. Chart reviewed. Discussed with team. Obtain collateral contact info?as needed 12/03/2021: Increased olanzapine to 15mg at bedtime 12/04: increased prazosin to 5 mg QHS. 12/05: increased prazosin to 6 mg QHS. increased prozac to 40 mg daily. I spent ___25___ minutes with the patient and/or on the patient floor today, greater than?50% of which was spent counseling/coordinating care. Reason for contiued inpatient stay Substantial Risk for: harm to self, inability to function and rapid decompensation
[2021-12-05] MEDS: Cyanocobalamin (Vitamin B-12) 100 MCG TABLET PO (15:18)
[2021-12-05] MEDS: Multivitamin TABLET 1 TAB PO (15:18)
[2021-12-05 21:02] VITALS: BP 129/66; PULSE 81; TEMP 36.2; O2SAT 95
[2021-12-05] MEDS: Prazosin HCL 1 MG CAPSULE 6 MG PO (21:14)
[2021-12-05] MEDS: OLANZapine 7.5 MG TABLET 15 MG PO (21:15)
[2021-12-06] MEDS: Cyanocobalamin (Vitamin B-12) 100 MCG TABLET PO (08:21)
[2021-12-06] MEDS: Acetaminophen 325 MG TABLET 650 MG PO (08:21)
[2021-12-06] MEDS: FLUoxetine HCl 20 MG CAPSULE 40 MG PO (08:21)
[2021-12-06] MEDS: Buprenorphine/Naloxone 8/2 mg FILM 1 FILM SUBLINGUAL ×2 (08:21→18:44)
[2021-12-06] MEDS: Multivitamin TABLET 1 TAB PO (08:21)
[2021-12-06] MEDS: Folic Acid 1 MG TABLET PO (08:21)
[2021-12-06 08:57] VITALS: BP 119/69; PULSE 80; RESP 20; TEMP 36.5; O2SAT 96
--- NOTE | 2021-12-06 10:26 | MHC.CLN ---
NUTRITION CONSULT FOR ENSURE SUPPLEMENT, PATIENT REQUESTING ENSURE SUPPLEMENT. ASKED PATIENT ABOUT SUPPLEMENT AND WOULD LIKE TID. ADDED TO ORDERS. DIET=REGULAR, ENSURE TID (1050 KCALS, 60 G PROTEIN).
[2021-12-06] MEDS: Buprenorphine/Naloxone 4/1 mg FILM 1 FILM SUBLINGUAL (12:39)
--- NOTE | 2021-12-06 13:40 | P.PNPSI_ITS ---
Subjective Subjective Date of Service: 12/06/21 Reason For Visit: Depression, SI, Substance Abuse Interim History: pt found seated in milieu. limping to interview room. states he is doing OK. discussing aftercare with SW: going home, taking meds, doing AA. does endorse nightmare last night for unknown reason. amenable to increase prazosin to 7 mg at HS. per staff, c/o anxiety 7.5/10. nightmares terrible last night. safe, c/o insomnia. dep 5/10. denies SI/HI. 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 Mental Status Exam Mental Status Exam Narrative: A&O. seated at table in milieu, adequate grooming. fair eye contact, attentive. No Tics or Tremors. No abnormal involuntary movements. Calm, cooperative. Non- pressured speech, spontaneous with regular rate and rhythm, normal volume and prosody. No prolonged speech latency or dysarthria. affect is constricted. no SI/HI expressed. no CAH expressed. Thoughts are concrete, goal oriented. No known cognitive or memory impairment. Insight/ Judgment limited due to chronic substance use. Diagnostics Vital Signs (24Hr): Vital Signs - 24 hr 12/05/21 21:02 12/06/21 08:57 Temperature 97.1 F 97.7 F Pulse Rate 81 80 Respiratory Rate 20 Blood Pressure 129/66 119/69 Pulse Oximetry 95 96 BMI result Body Mass Index 30.3 Labs Results: 11/30/21 16:48 12/01/21 08:35 Medications Medications Current Medications Acetaminophen (Acetaminophen 325 Mg Tablet) 650 mg PO Q6H PRN PRN Reason: Headache/Pain Mild Scale (1-3) Last Admin: 12/06/21 08:21 Dose: 650 mg Documented by: Al Hydroxide/Mg Hydroxide (Magnesium Hydrox/Alum Hydrox 30 Ml Oral.Susp) 30 ml PO Q6H PRN PRN Reason: Heartburn/Nausea Buprenorphine/Naloxone (Buprenorphine/Naloxone 8/2 Mg Film) 1 film SUBLINGUAL BID@0800,1800 RAS Last Admin: 12/06/21 08:21 Dose: 1 film Documented by: Buprenorphine/Naloxone (Buprenorphine/Naloxone 4/1 Mg Film) 1 film SUBLINGUAL DAILY@1200 RAS Last Admin: 12/06/21 12:39 Dose: 1 film Documented by: Capsaicin (Capsaicin 0.025% Cream 60 Gm Tube) 1 appl TOPICAL QID PRN; Protocol PRN Reason: knee pain Last Admin: 12/05/21 09:20 Dose: 1 appl Documented by: Cyanocobalamin (Cyanocobalamin (Vitamin B-12) 100 Mcg Tablet) 100 mcg PO DAILY [facility] Last Admin: 12/06/21 08:21 Dose: 100 mcg Documented by: Fluoxetine HCl (Fluoxetine Hcl 20 Mg Capsule) 40 mg PO DAILY [facility] Last Admin: 12/06/21 08:21 Dose: 40 mg Documented by: Folic Acid (Folic Acid 1 Mg Tablet) 1 mg PO DAILY [facility] Last Admin: 12/06/21 08:21 Dose: 1 mg Documented by: Hydroxyzine HCl (Hydroxyzine Hcl 25 Mg Tablet) 25 mg PO Q6H PRN PRN Reason: Anxiety Magnesium Hydroxide (Milk Of Magnesia 30 Ml Oral.Susp) 30 ml PO DAILY PRN PRN Reason: Constipation Multivitamins/Vitamin C (Multivitamin Tablet) 1 tab PO DAILY [facility] Last Admin: 12/06/21 08:21 Dose: 1 tab Documented by: Naproxen (Naproxen 500 Mg Tablet) 500 mg PO Q12H PRN PRN Reason: mod-severe pain Last Admin: 12/05/21 21:15 Dose: 500 mg Documented by: Nicotine (Nicotine 21 Mg Patch.Td24) 21 mg TRANSDERMA DAILY PRN PRN Reason: nicotine withdrawal Nicotine Polacrilex (Nicotine Polacrilex 2 Mg Gum) 2 mg BUCCAL Q2H PRN PRN Reason: Nicotine Cravings Nicotine Polacrilex (Nicotine Polacrilex 2 Mg Gum) 4 mg BUCCAL Q2H PRN PRN Reason: nicotine withdrawal Olanzapine (Olanzapine 7.5 Mg Tablet) 15 mg PO BEDTIME [facility] Last Admin: 12/05/21 21:15 Dose: 15 mg Documented by: Prazosin HCl (Prazosin Hcl 1 Mg Capsule) 7 mg PO BEDTIME [facility]; Protocol Trazodone HCl (Trazodone Hcl 50 Mg Tablet) 50 mg PO BEDTIME PRN PRN Reason: Insomnia Trolamine Salicylate/Aloe Vera (Trolamine Salicylate 10%/Aloe Cream 35.4 Gm) 1 appl TOPICAL QID PRN PRN Reason: knee pain Last Admin: 12/05/21 09:21 Dose: 1 appl Documented by: Allergies Allergies Allergy/AdvReac Type Severity Reaction Status Date / Time No Known Allergies Allergy Verified 08/27/21 00:53 [No Known Allergies*] Assessment & Plan Assessment & Plan (1) Alcohol use disorder, moderate, dependence: Status: Acute Code(s): F10.20 - Alcohol dependence, uncomplicated (2) Opioid use disorder, moderate, in early remission, on maintenance therapy, dependence: Status: Acute Code(s): F11.21 - Opioid dependence, in remission (3) Chronic post-traumatic stress disorder (PTSD): Status: Acute Code(s): F43.12 - Post-traumatic stress disorder, chronic Plan Cornell is a 56 y.o. male who carries a dx of PTSD, depression and chronic substance abuse. Hx of previous admissions to [facility] [place] for depression, SI.?Pt presented to [facility] [place] on 11/30/21 reporting SI without plan or intent, depression. Pt reports poor adherence with medication, has not taken meds x 1 week. Plan: Pt does not want medication changes at this time, says he has been non- adherent with medication for a couple days prior to admission. Utox positive for opioids, fentanyl, and cocaine. Last used half a bag of heroin on 11/29/21, re- started on suboxone and home meds in the ED setting. Denies withdrawal sx. Q15 min safety checks, CV Monitor response to medications. Monitor for safety in the milieu. Discharge on stabilization. Patient seen. Chart reviewed. Discussed with team. Obtain collateral contact info?as needed 12/03/2021: Increased olanzapine to 15mg at bedtime 12/04: increased prazosin to 5 mg QHS. 12/05: increased prazosin to 6 mg QHS. increased prozac to 40 mg daily. 12/06: increased prazosin to 7 mg QHS. nightmare last night, poor sleep. I spent ___25___ minutes with the patient and/or on the patient floor today, greater than?50% of which was spent counseling/coordinating care. Reason for contiued inpatient stay Substantial Risk for: harm to self, inability to function and rapid decompensation
[2021-12-06 22:30] VITALS: BP 122/86; PULSE 95; RESP 18; TEMP 36.8; O2SAT 94
[2021-12-06] MEDS: OLANZapine 7.5 MG TABLET 15 MG PO (22:56)
[2021-12-06] MEDS: Prazosin HCL 1 MG CAPSULE 7 MG PO (22:57)
[2021-12-07 07:00] VITALS: BMI 32.4
[2021-12-07 09:00] VITALS: BP 129/86; PULSE 73; RESP 20; TEMP 36.3; O2SAT 95
[2021-12-07] MEDS: FLUoxetine HCl 20 MG CAPSULE 40 MG PO (09:07)
[2021-12-07] MEDS: Cyanocobalamin (Vitamin B-12) 100 MCG TABLET PO (09:08)
[2021-12-07] MEDS: Folic Acid 1 MG TABLET PO (09:08)
[2021-12-07] MEDS: Multivitamin TABLET 1 TAB PO (09:08)
[2021-12-07] MEDS: Buprenorphine/Naloxone 8/2 mg FILM 1 FILM SUBLINGUAL ×2 (09:09→17:20)
[2021-12-07] MEDS: NaPROXEN 500 MG TABLET PO (09:47)
[2021-12-07] MEDS: Capsaicin 0.025% Cream 60 GM TUBE 1 APPL TOPICAL (09:47)
[2021-12-07] MEDS: Buprenorphine/Naloxone 4/1 mg FILM 1 FILM SUBLINGUAL (12:40)
--- NOTE | 2021-12-07 13:53 | P.PNPSI_ITS ---
Subjective Subjective Date of Service: 12/07/21 Reason For Visit: Depression, SI, Substance Abuse Interim History: pt found sleeping in his chair in group. he informs he was demonstrating meditation technique to a peer. states he is feeling OK, does c/o poor sleep and agrees to increase prazosin once again. discharge activities discussed, including pt's plan to go back to [place] for two weeks and then have his position at [employer] transferred back to [place]. planning for saturday discharge. per staff, attending groups. c/o poor sleep. sleeping in shifts btwn his room and the milieu. dep 01/12. spending time working on [employer]. Mental Status Exam Mental Status Exam Narrative: seated at table in group room, asleep, easily roused. adequate grooming. fair eye contact, attentive. No Tics or Tremors. No abnormal involuntary movements. Calm, cooperative. Non-pressured speech, spontaneous with regular rate and rhythm, normal volume and prosody. No prolonged speech latency or dysarthria. affect is constricted. no SI/HI expressed. no CAH expressed. Thoughts are concrete, goal oriented. No known cognitive or memory impairment. Insight/ Judgment limited due to chronic substance use. Diagnostics Vital Signs (24Hr): Vital Signs - 24 hr 12/06/21 22:30 12/07/21 09:00 Temperature 98.3 F 97.3 F Pulse Rate 95 73 Respiratory Rate 18 20 Blood Pressure 122/86 129/86 Pulse Oximetry 94 95 BMI result Body Mass Index 30.3 Labs Results: 11/30/21 16:48 12/01/21 08:35 Medications Medications Current Medications Acetaminophen (Acetaminophen 325 Mg Tablet) 650 mg PO Q6H PRN PRN Reason: Headache/Pain Mild Scale (1-3) Last Admin: 12/06/21 08:21 Dose: 650 mg Documented by: Al Hydroxide/Mg Hydroxide (Magnesium Hydrox/Alum Hydrox 30 Ml Oral.Susp) 30 ml PO Q6H PRN PRN Reason: Heartburn/Nausea Buprenorphine/Naloxone (Buprenorphine/Naloxone 8/2 Mg Film) 1 film SUBLINGUAL BID@0800,1800 RAS Last Admin: 12/07/21 09:09 Dose: 1 film Documented by: Buprenorphine/Naloxone (Buprenorphine/Naloxone 4/1 Mg Film) 1 film SUBLINGUAL DAILY@1200 RAS Last Admin: 12/07/21 12:40 Dose: 1 film Documented by: Capsaicin (Capsaicin 0.025% Cream 60 Gm Tube) 1 appl TOPICAL QID PRN; Protocol PRN Reason: knee pain Last Admin: 12/07/21 09:47 Dose: 1 appl Documented by: Cyanocobalamin (Cyanocobalamin (Vitamin B-12) 100 Mcg Tablet) 100 mcg PO DAILY [facility] Last Admin: 12/07/21 09:08 Dose: 100 mcg Documented by: Fluoxetine HCl (Fluoxetine Hcl 20 Mg Capsule) 40 mg PO DAILY [facility] Last Admin: 12/07/21 09:07 Dose: 40 mg Documented by: Folic Acid (Folic Acid 1 Mg Tablet) 1 mg PO DAILY [facility] Last Admin: 12/07/21 09:08 Dose: 1 mg Documented by: Hydroxyzine HCl (Hydroxyzine Hcl 25 Mg Tablet) 25 mg PO Q6H PRN PRN Reason: Anxiety Magnesium Hydroxide (Milk Of Magnesia 30 Ml Oral.Susp) 30 ml PO DAILY PRN PRN Reason: Constipation Multivitamins/Vitamin C (Multivitamin Tablet) 1 tab PO DAILY [facility] Last Admin: 12/07/21 09:08 Dose: 1 tab Documented by: Naproxen (Naproxen 500 Mg Tablet) 500 mg PO Q12H PRN PRN Reason: mod-severe pain Last Admin: 12/07/21 09:47 Dose: 500 mg Documented by: Nicotine (Nicotine 21 Mg Patch.Td24) 21 mg TRANSDERMA DAILY PRN PRN Reason: nicotine withdrawal Nicotine Polacrilex (Nicotine Polacrilex 2 Mg Gum) 2 mg BUCCAL Q2H PRN PRN Reason: Nicotine Cravings Nicotine Polacrilex (Nicotine Polacrilex 2 Mg Gum) 4 mg BUCCAL Q2H PRN PRN Reason: nicotine withdrawal Olanzapine (Olanzapine 7.5 Mg Tablet) 15 mg PO BEDTIME [facility] Last Admin: 12/06/21 22:56 Dose: 15 mg Documented by: Prazosin HCl (Prazosin Hcl 1 Mg Capsule) 8 mg PO BEDTIME [facility]; Protocol Trazodone HCl (Trazodone Hcl 50 Mg Tablet) 50 mg PO BEDTIME PRN PRN Reason: Insomnia Trolamine Salicylate/Aloe Vera (Trolamine Salicylate 10%/Aloe Cream 35.4 Gm) 1 appl TOPICAL QID PRN PRN Reason: knee pain Last Admin: 12/05/21 09:21 Dose: 1 appl Documented by: Allergies Allergies Allergy/AdvReac Type Severity Reaction Status Date / Time No Known Allergies Allergy Verified 08/27/21 00:53 [No Known Allergies*] Assessment & Plan Assessment & Plan (1) Alcohol use disorder, moderate, dependence: Status: Acute Code(s): F10.20 - Alcohol dependence, uncomplicated (2) Opioid use disorder, moderate, in early remission, on maintenance therapy, dependence: Status: Acute Code(s): F11.21 - Opioid dependence, in remission (3) Chronic post-traumatic stress disorder (PTSD): Status: Acute Code(s): F43.12 - Post-traumatic stress disorder, chronic Plan Cornell is a 56 y.o. male who carries a dx of PTSD, depression and chronic substance abuse. Hx of previous admissions to [facility] [place] [place] for depression, SI.?Pt present ed to [facility] [place] [place] on 11/30/21 reporting SI without plan or intent, depression. Pt reports poor adherence with medication, has not taken meds x 1 week. Plan: Pt does not want medication changes at this time, says he has been non- adherent with medication for a couple days prior to admission. Utox positive for opioids, fentanyl, and cocaine. Last used half a bag of heroin on 11/29/21, re- started on suboxone and home meds in the ED setting. Denies withdrawal sx. Q15 min safety checks, CV Monitor response to medications. Monitor for safety in the milieu. Discharge on stabilization. Patient seen. Chart reviewed. Discussed with team. Obtain collateral contact info?as needed 12/03/2021: Increased olanzapine to 15mg at bedtime 12/04: increased prazosin to 5 mg QHS. 12/05: increased prazosin to 6 mg QHS. increased prozac to 40 mg daily. 12/06: increased prazosin to 7 mg QHS. nightmare last night, poor sleep. 12/07: increased prazosin to 8 mg QHS. fractured, poor sleep last NOC. I spent __25____ minutes with the patient and/or on the patient floor today, greater than?50% of which was spent counseling/coordinating care. Reason for contiued inpatient stay Substantial Risk for: inability to function and rapid decompensation
[2021-12-07 22:12] VITALS: BP 157/85; PULSE 90; RESP 16; TEMP 36.3; O2SAT 98
[2021-12-07] MEDS: OLANZapine 7.5 MG TABLET 15 MG PO (22:16)
[2021-12-07] MEDS: Prazosin HCL 1 MG CAPSULE 3 MG PO (22:17)
[2021-12-07] MEDS: Prazosin HCL 5 MG CAPSULE PO (22:17)
[2021-12-08] MEDS: Folic Acid 1 MG TABLET PO (08:23)
[2021-12-08] MEDS: FLUoxetine HCl 20 MG CAPSULE 40 MG PO (08:23)
[2021-12-08] MEDS: Cyanocobalamin (Vitamin B-12) 100 MCG TABLET PO (08:23)
[2021-12-08] MEDS: Multivitamin TABLET 1 TAB PO (08:24)
[2021-12-08] MEDS: Buprenorphine/Naloxone 8/2 mg FILM 1 FILM SUBLINGUAL ×2 (08:25→17:03)
[2021-12-08 09:31] VITALS: BP 131/76; PULSE 92; RESP 20; TEMP 36.4; O2SAT 96
--- NOTE | 2021-12-08 11:56 | P.PNPSI_ITS ---
Subjective Subjective Date of Service: 12/08/21 Reason For Visit: Depression, SI, Substance Abuse Interim History: pt reports he is feeling OK, planning for saturday discharge. states he called suboxone clinic and got appointment. sleeping remains somewhat difficult, but improved. agrees to increae prazosin to 9 mg tonight and 10 mg tomorrow. no other complaints or requests. per staff, visible, attending groups. eating well. says not sleeping but observed by staff to be snoring much of the night. Mental Status Exam Mental Status Exam Narrative: seated at table in milieu. adequate grooming. fair eye contact, attentive. No Tics or Tremors. No abnormal involuntary movements. Calm, cooperative. Non- pressured speech, spontaneous with regular rate and rhythm, normal volume and p rosody. No prolonged speech latency or dysarthria. affect is constricted. no SI/HI expressed. no CAH expressed. Thoughts are concrete, goal oriented. No known cognitive or memory impairment. Insight/ Judgment limited due to chronic substance use. Diagnostics Vital Signs (24Hr): Vital Signs - 24 hr 12/07/21 22:12 12/08/21 09:31 Temperature 97.3 F 97.6 F Pulse Rate 90 92 Respiratory Rate 16 20 Blood Pressure 157/85 H 131/76 Pulse Oximetry 98 96 BMI result Body Mass Index 32.4 Labs Results: 11/30/21 16:48 12/01/21 08:35 Medications Medications Current Medications Acetaminophen (Acetaminophen 325 Mg Tablet) 650 mg PO Q6H PRN PRN Reason: Headache/Pain Mild Scale (1-3) Last Admin: 12/06/21 08:21 Dose: 650 mg Documented by: Al Hydroxide/Mg Hydroxide (Magnesium Hydrox/Alum Hydrox 30 Ml Oral.Susp) 30 ml PO Q6H PRN PRN Reason: Heartburn/Nausea Buprenorphine/Naloxone (Buprenorphine/Naloxone 8/2 Mg Film) 1 film SUBLINGUAL BID@0800,1800 RAS Last Admin: 12/08/21 08:25 Dose: 1 film Documented by: Buprenorphine/Naloxone (Buprenorphine/Naloxone 4/1 Mg Film) 1 film SUBLINGUAL DAILY@1200 RAS Last Admin: 12/07/21 12:40 Dose: 1 film Documented by: Capsaicin (Capsaicin 0.025% Cream 60 Gm Tube) 1 appl TOPICAL QID PRN; Protocol PRN Reason: knee pain Last Admin: 12/07/21 09:47 Dose: 1 appl Documented by: Cyanocobalamin (Cyanocobalamin (Vitamin B-12) 100 Mcg Tablet) 100 mcg PO DAILY [facility] Last Admin: 12/08/21 08:23 Dose: 100 mcg Documented by: Fluoxetine HCl (Fluoxetine Hcl 20 Mg Capsule) 40 mg PO DAILY [facility] Last Admin: 12/08/21 08:23 Dose: 40 mg Documented by: Folic Acid (Folic Acid 1 Mg Tablet) 1 mg PO DAILY [facility] Last Admin: 12/08/21 08:23 Dose: 1 mg Documented by: Hydroxyzine HCl (Hydroxyzine Hcl 25 Mg Tablet) 25 mg PO Q6H PRN PRN Reason: Anxiety Magnesium Hydroxide (Milk Of Magnesia 30 Ml Oral.Susp) 30 ml PO DAILY PRN PRN Reason: Constipation Multivitamins/Vitamin C (Multivitamin Tablet) 1 tab PO DAILY [facility] Last Admin: 12/08/21 08:24 Dose: 1 tab Documented by: Naproxen (Naproxen 500 Mg Tablet) 500 mg PO Q12H PRN PRN Reason: mod-severe pain Last Admin: 12/07/21 09:47 Dose: 500 mg Documented by: Nicotine (Nicotine 21 Mg Patch.Td24) 21 mg TRANSDERMA DAILY PRN PRN Reason: nicotine withdrawal Nicotine Polacrilex (Nicotine Polacrilex 2 Mg Gum) 2 mg BUCCAL Q2H PRN PRN Reason: Nicotine Cravings Nicotine Polacrilex (Nicotine Polacrilex 2 Mg Gum) 4 mg BUCCAL Q2H PRN PRN Reason: nicotine withdrawal Olanzapine (Olanzapine 7.5 Mg Tablet) 15 mg PO BEDTIME [facility] Last Admin: 12/07/21 22:16 Dose: 15 mg Documented by: Prazosin HCl (Prazosin Hcl 5 Mg Capsule) 5 mg PO BEDTIME [facility] Stop: 12/09/21 09:00 Last Admin: 12/07/21 22:17 Dose: 5 mg Documented by: Prazosin HCl (Prazosin Hcl 1 Mg Capsule) 4 mg PO BEDTIME [facility] Stop: 12/09/21 09:00 Prazosin HCl (Prazosin Hcl 5 Mg Capsule) 10 mg PO BEDTIME [facility]; Protocol Trazodone HCl (Trazodone Hcl 50 Mg Tablet) 50 mg PO BEDTIME PRN PRN Reason: Insomnia Trolamine Salicylate/Aloe Vera (Trolamine Salicylate 10%/Aloe Cream 35.4 Gm) 1 appl TOPICAL QID PRN PRN Reason: knee pain Last Admin: 12/05/21 09:21 Dose: 1 appl Documented by: Allergies Allergies Allergy/AdvReac Type Severity Reaction Status Date / Time No Known Allergies Allergy Verified 08/27/21 00:53 [No Known Allergies*] Assessment & Plan Assessment & Plan (1) Alcohol use disorder, moderate, dependence: Status: Acute Code(s): F10.20 - Alcohol dependence, uncomplicated (2) Opioid use disorder, moderate, in early remission, on maintenance therapy, dependence: Status: Acute Code(s): F11.21 - Opioid dependence, in remission (3) Chronic post-traumatic stress disorder (PTSD): Status: Acute Code(s): F43.12 - Post-traumatic stress disorder, chronic Plan Cornell is a 56 y.o. male who carries a dx of PTSD, depression and chronic substance abuse. [place] [facility] [place] [facility] [place], [place]Pt [place] [facility] [place] reporting SI without plan or intent, depression. Pt reports poor adherence with medication, has not taken meds x 1 week. Plan: Pt does not want medication changes at this time, says he has been non- adherent with medication for a couple days prior to admission. Utox positive for opioids, fentanyl, and cocaine. Last used half a bag of heroin on 11/29/21, re- started on suboxone and home meds in the ED setting. Denies withdrawal sx. Q15 min safety checks, CV Monitor response to medications. Monitor for safety in the milieu. Discharge on stabilization. Patient seen. Chart reviewed. Discussed with team. Obtain collateral contact info?as needed 12/03/2021: Increased olanzapine to 15mg at bedtime 12/04: increased prazosin to 5 mg QHS. 12/05: increased prazosin to 6 mg QHS. increased prozac to 40 mg daily. 12/06: increased prazosin to 7 mg QHS. nightmare last night, poor sleep. 12/07: increased prazosin to 8 mg QHS. fractured, poor sleep last NOC. 12/08: increased prazosin to 9 mg QHS for tonight and to 10 mg QHS for tomorrow. sleep gradually improving. DC saturday. I spent ___25___ minutes with the patient and/or on the patient floor today, greater than?50% of which was spent counseling/coordinating care. Reason for contiued inpatient stay Substantial Risk for: inability to function and rapid decompensation
[2021-12-08] MEDS: Buprenorphine/Naloxone 4/1 mg FILM 1 FILM SUBLINGUAL (13:12)
[2021-12-08 22:10] VITALS: BP 153/81; PULSE 87; RESP 18; TEMP 36.8; O2SAT 94
[2021-12-08] MEDS: Prazosin HCL 5 MG CAPSULE PO (22:16)
[2021-12-08] MEDS: Prazosin HCL 1 MG CAPSULE 4 MG PO (22:16)
[2021-12-08] MEDS: OLANZapine 7.5 MG TABLET 15 MG PO (22:16)
[2021-12-09] MEDS: FLUoxetine HCl 20 MG CAPSULE 40 MG PO (09:21)
[2021-12-09] MEDS: Buprenorphine/Naloxone 8/2 mg FILM 1 FILM SUBLINGUAL ×2 (09:21→18:43)
[2021-12-09] MEDS: Folic Acid 1 MG TABLET PO (09:22)
[2021-12-09] MEDS: Multivitamin TABLET 1 TAB PO (09:22)
[2021-12-09] MEDS: Cyanocobalamin (Vitamin B-12) 100 MCG TABLET PO (09:22)
[2021-12-09 09:25] VITALS: BP 148/79; PULSE 99; RESP 16; TEMP 36.7; O2SAT 96
[2021-12-09] MEDS: Buprenorphine/Naloxone 4/1 mg FILM 1 FILM SUBLINGUAL (11:58)
[2021-12-09 18:00] VITALS: BP 158/78; PULSE 95; RESP 16; TEMP 36.6; O2SAT 97
--- NOTE | 2021-12-09 20:42 | HO.PSYCHPN ---
Subjective Subjective Date of Service: 12/09/21 Reason For Visit: Depression, SI, Substance Abuse Interim History: Patient complaining his feet have swollen since he was given higher dose of Prazosin. He says he didn't have this before. He denies pain. He has no calf pain or tenderness. No redness. He continues to look forward to [place]. 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 He reports he has improved since being here. He is requesting Prazosin be decreased to previous levels. No other complaints or requests. per staff, visible, attending groups. eating well. Review of Systems Review of Systems Unremarkable Yes all other systems are reviewed and are negative Mental Status Exam Mental Status Exam Narrative: seated at table in milieu. adequate grooming. fair eye contact, attentive. No Tics or Tremors. No abnormal involuntary movements. Calm, cooperative. Non-pressured speech, spontaneous with regular rate and rhythm, normal volume and prosody. No prolonged speech latency or dysarthria. affect is constricted. no SI/HI expressed. no CAH expressed. Thoughts are concrete, goal oriented. No known cognitive or memory impairment. Insight/ Judgment limited due to chronic substance use. Diagnostics Vital Signs (24Hr): Vital Signs - 24 hr 12/08/21 22:10 12/09/21 09:25 Temperature 98.3 F 98.1 F Pulse Rate 87 99 Respiratory Rate 18 16 Blood Pressure 153/81 H 148/79 H Pulse Oximetry 94 96 BMI result Body Mass Index 32.4 Labs Results: 11/30/21 16:48 12/01/21 08:35 Medications Medications Current Medications Acetaminophen (Acetaminophen 325 Mg Tablet) 650 mg PO Q6H PRN PRN Reason: Headache/Pain Mild Scale (1-3) Last Admin: 12/06/21 08:21 Dose: 650 mg Documented by: Al Hydroxide/Mg Hydroxide (Magnesium Hydrox/Alum Hydrox 30 Ml Oral.Susp) 30 ml PO Q6H PRN PRN Reason: Heartburn/Nausea Buprenorphine/Naloxone (Buprenorphine/Naloxone 8/2 Mg Film) 1 film SUBLINGUAL BID@0800,1800 RAS Last Admin: 12/09/21 18:43 Dose: 1 film Documented by: Buprenorphine/Naloxone (Buprenorphine/Naloxone 4/1 Mg Film) 1 film SUBLINGUAL DAILY@1200 RAS Last Admin: 12/09/21 11:58 Dose: 1 film Documented by: Capsaicin (Capsaicin 0.025% Cream 60 Gm Tube) 1 appl TOPICAL QID PRN; Protocol PRN Reason: knee pain Last Admin: 12/07/21 09:47 Dose: 1 appl Documented by: Cyanocobalamin (Cyanocobalamin (Vitamin B-12) 100 Mcg Tablet) 100 mcg PO DAILY [facility] Last Admin: 12/09/21 09:22 Dose: 100 mcg Documented by: Fluoxetine HCl (Fluoxetine Hcl 20 Mg Capsule) 40 mg PO DAILY [facility] Last Admin: 12/09/21 09:21 Dose: 40 mg Documented by: Folic Acid (Folic Acid 1 Mg Tablet) 1 mg PO DAILY [facility] Last Admin: 12/09/21 09:22 Dose: 1 mg Documented by: Hydroxyzine HCl (Hydroxyzine Hcl 25 Mg Tablet) 25 mg PO Q6H PRN PRN Reason: Anxiety Magnesium Hydroxide (Milk Of Magnesia 30 Ml Oral.Susp) 30 ml PO DAILY PRN PRN Reason: Constipation Multivitamins/Vitamin C (Multivitamin Tablet) 1 tab PO DAILY [facility] Last Admin: 12/09/21 09:22 Dose: 1 tab Documented by: Naproxen (Naproxen 500 Mg Tablet) 500 mg PO Q12H PRN PRN Reason: mod-severe pain Last Admin: 12/07/21 09:47 Dose: 500 mg Documented by: Nicotine (Nicotine 21 Mg Patch.Td24) 21 mg TRANSDERMA DAILY PRN PRN Reason: nicotine withdrawal Nicotine Polacrilex (Nicotine Polacrilex 2 Mg Gum) 2 mg BUCCAL Q2H PRN PRN Reason: Nicotine Cravings Nicotine Polacrilex (Nicotine Polacrilex 2 Mg Gum) 4 mg BUCCAL Q2H PRN PRN Reason: nicotine withdrawal Olanzapine (Olanzapine 7.5 Mg Tablet) 15 mg PO BEDTIME [facility] Last Admin: 12/08/21 22:16 Dose: 15 mg Documented by: Prazosin HCl (Prazosin Hcl 1 Mg Capsule) 4 mg PO BEDTIME [facility]; Protocol Trazodone HCl (Trazodone Hcl 50 Mg Tablet) 50 mg PO BEDTIME PRN PRN Reason: Insomnia Trolamine Salicylate/Aloe Vera (Trolamine Salicylate 10%/Aloe Cream 35.4 Gm) 1 appl TOPICAL QID PRN PRN Reason: knee pain Last Admin: 12/05/21 09:21 Dose: 1 appl Documented by: Allergies Allergies Allergy/AdvReac Type Severity Reaction Status Date / Time No Known Allergies Allergy Verified 08/27/21 00:53 [No Known Allergies*] Assessment & Plan Assessment & Plan (1) Alcohol use disorder, moderate, dependence: Status: Acute Code(s): F10.20 - Alcohol dependence, uncomplicated (2) Opioid use disorder, moderate, in early remission, on maintenance therapy, dependence: Status: Acute Code(s): F11.21 - Opioid dependence, in remission (3) Chronic post-traumatic stress disorder (PTSD): Status: Acute Code(s): F43.12 - Post-traumatic stress disorder, chronic Plan Cornell is a 56 y.o. male who carries a dx of PTSD, depression and chronic substance abuse. [place] [facility] [place].?[place] [facility] [place] reporting SI without plan or intent, depression. Pt reports poor adherence with medication, has not taken meds x 1 week. Plan: Pt does not want medication changes at this time, says he has been non-adherent with medication for a couple days prior to admission. Utox positive for opioids, fentanyl, and cocaine. Last used half a bag of heroin on 11/29/21, re-started on suboxone and home meds in the ED setting. Denies withdrawal sx. Q15 min safety checks, CV Monitor response to medications. Monitor for safety in the milieu. Discharge on stabilization. Patient seen. Chart reviewed. Discussed with team. Obtain collateral contact info?as needed 12/03/2021: Increased olanzapine to 15mg at bedtime 12/04: increased prazosin to 5 mg QHS. 12/05: increased prazosin to 6 mg QHS. increased prozac to 40 mg daily. 12/06: increased prazosin to 7 mg QHS. nightmare last night, poor sleep. 12/07: increased prazosin to 8 mg QHS. fractured, poor sleep last NOC. 12/08: increased prazosin to 9 mg QHS for tonight and to 10 mg QHS for tomorrow. sleep gradually improving. DC saturday. 12/09 Lower Prazosin back to 4 mg. He reports he had no RICARDO prior to increasing Prazosin and requests decrease to previous dosing. I spent minutes with the patient and/or on the patient floor today, greater than?50% of which was spent counseling/coordinating care. Reason for contiued inpatient stay Substantial Risk for: harm to self and rapid decompensation
[2021-12-09] MEDS: OLANZapine 7.5 MG TABLET 15 MG PO (22:26)
[2021-12-09] MEDS: Prazosin HCL 1 MG CAPSULE 4 MG PO (22:26)
[2021-12-09] MEDS: guaiFENesin DM 100/10/5 ML 5 ML SYRUP PO (22:26)
[2021-12-10] MEDS: guaiFENesin DM 100/10/5 ML 5 ML SYRUP PO ×3 (06:01→18:51)
[2021-12-10] MEDS: Buprenorphine/Naloxone 8/2 mg FILM 1 FILM SUBLINGUAL ×2 (08:48→18:14)
[2021-12-10] MEDS: FLUoxetine HCl 20 MG CAPSULE 40 MG PO (08:48)
[2021-12-10] MEDS: Folic Acid 1 MG TABLET PO (08:49)
[2021-12-10] MEDS: Cyanocobalamin (Vitamin B-12) 100 MCG TABLET PO (08:49)
[2021-12-10] MEDS: Multivitamin TABLET 1 TAB PO (08:49)
[2021-12-10] MEDS: NaPROXEN 500 MG TABLET PO ×2 (08:53→22:36)
[2021-12-10 09:00] VITALS: BP 129/70; PULSE 78; RESP 16; TEMP 36.6; O2SAT 96
[2021-12-10] MEDS: Buprenorphine/Naloxone 4/1 mg FILM 1 FILM SUBLINGUAL (12:34)
--- NOTE | 2021-12-10 18:43 | HO.PSYCHPN ---
Subjective Subjective Date of Service: 12/10/21 Reason For Visit: Depression, SI, Substance Abuse Interim History: LE US negative for DVT. He is thankful for decrease in Prazosin. He slept well. He say she feels well. Denies any pain. He continues to look forward to [place]. 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 He reports he has improved since being here. No other complaints or requests. per staff, visible, attending groups. eating well. Review of Systems Review of Systems Unremarkable Yes all other systems are reviewed and are negative Mental Status Exam Mental Status Exam Narrative: seated at table in milieu. adequate grooming. fair eye contact, attentive. No Tics or Tremors. No abnormal involuntary movements. Calm, cooperative. Non-pressured speech, spontaneous with regular rate and rhythm, normal volume and prosody. No prolonged speech latency or dysarthria. affect is constricted. no SI/HI expressed. no CAH expressed. Thoughts are concrete, goal oriented. No known cognitive or memory impairment. Insight/ Judgment limited due to chronic substance use. Diagnostics Vital Signs (24Hr): Vital Signs - 24 hr 12/10/21 09:00 Temperature 97.9 F Pulse Rate 78 Respiratory Rate 16 Blood Pressure 129/70 Pulse Oximetry 96 BMI result Body Mass Index 32.4 Labs Results: 11/30/21 16:48 12/01/21 08:35 Imaging Radiology Impressions: ITS Impressions Venous Duplex 12/10/21 08:27 IMPRESSION: No DVT demonstrated in the bilateral lower extremity. Medications Medications Current Medications Acetaminophen (Acetaminophen 325 Mg Tablet) 650 mg PO Q6H PRN PRN Reason: Headache/Pain Mild Scale (1-3) Last Admin: 12/06/21 08:21 Dose: 650 mg Documented by: Al Hydroxide/Mg Hydroxide (Magnesium Hydrox/Alum Hydrox 30 Ml Oral.Susp) 30 ml PO Q6H PRN PRN Reason: Heartburn/Nausea Buprenorphine/Naloxone (Buprenorphine/Naloxone 8/2 Mg Film) 1 film SUBLINGUAL BID@0800,1800 RAS Last Admin: 12/10/21 18:14 Dose: 1 film Documented by: Buprenorphine/Naloxone (Buprenorphine/Naloxone 4/1 Mg Film) 1 film SUBLINGUAL DAILY@1200 RAS Last Admin: 12/10/21 12:34 Dose: 1 film Documented by: Capsaicin (Capsaicin 0.025% Cream 60 Gm Tube) 1 appl TOPICAL QID PRN; Protocol PRN Reason: knee pain Last Admin: 12/07/21 09:47 Dose: 1 appl Documented by: Cyanocobalamin (Cyanocobalamin (Vitamin B-12) 100 Mcg Tablet) 100 mcg PO DAILY [facility] Last Admin: 12/10/21 08:49 Dose: 100 mcg Documented by: Fluoxetine HCl (Fluoxetine Hcl 20 Mg Capsule) 40 mg PO DAILY [facility] Last Admin: 12/10/21 08:48 Dose: 40 mg Documented by: Folic Acid (Folic Acid 1 Mg Tablet) 1 mg PO DAILY [facility] Last Admin: 12/10/21 08:49 Dose: 1 mg Documented by: Guaifenesin/Dextromethorphan (Guaifenesin Dm 100/10/5 Ml 5 Ml Syrup) 5 ml PO Q6H PRN PRN Reason: cough Last Admin: 12/10/21 12:34 Dose: 5 ml Documented by: Hydroxyzine HCl (Hydroxyzine Hcl 25 Mg Tablet) 25 mg PO Q6H PRN PRN Reason: Anxiety Magnesium Hydroxide (Milk Of Magnesia 30 Ml Oral.Susp) 30 ml PO DAILY PRN PRN Reason: Constipation Multivitamins/Vitamin C (Multivitamin Tablet) 1 tab PO DAILY [facility] Last Admin: 12/10/21 08:49 Dose: 1 tab Documented by: Naproxen (Naproxen 500 Mg Tablet) 500 mg PO Q12H PRN PRN Reason: mod-severe pain Last Admin: 12/10/21 08:53 Dose: 500 mg Documented by: Nicotine (Nicotine 21 Mg Patch.Td24) 21 mg TRANSDERMA DAILY PRN PRN Reason: nicotine withdrawal Nicotine Polacrilex (Nicotine Polacrilex 2 Mg Gum) 2 mg BUCCAL Q2H PRN PRN Reason: Nicotine Cravings Nicotine Polacrilex (Nicotine Polacrilex 2 Mg Gum) 4 mg BUCCAL Q2H PRN PRN Reason: nicotine withdrawal Olanzapine (Olanzapine 7.5 Mg Tablet) 15 mg PO BEDTIME [facility] Last Admin: 12/09/21 22:26 Dose: 15 mg Documented by: Prazosin HCl (Prazosin Hcl 1 Mg Capsule) 4 mg PO BEDTIME [facility]; Protocol Last Admin: 12/09/21 22:26 Dose: 4 mg Documented by: Trazodone HCl (Trazodone Hcl 50 Mg Tablet) 50 mg PO BEDTIME PRN PRN Reason: Insomnia Trolamine Salicylate/Aloe Vera (Trolamine Salicylate 10%/Aloe Cream 35.4 Gm) 1 appl TOPICAL QID PRN PRN Reason: knee pain Last Admin: 12/05/21 09:21 Dose: 1 appl Documented by: Allergies Allergies Allergy/AdvReac Type Severity Reaction Status Date / Time No Known Allergies Allergy Verified 08/27/21 00:53 [No Known Allergies*] Assessment & Plan Assessment & Plan (1) Alcohol use disorder, moderate, dependence: Status: Acute Code(s): F10.20 - Alcohol dependence, uncomplicated (2) Opioid use disorder, moderate, in early remission, on maintenance therapy, dependence: Status: Acute Code(s): F11.21 - Opioid dependence, in remission (3) Chronic post-traumatic stress disorder (PTSD): Status: Acute Code(s): F43.12 - Post-traumatic stress disorder, chronic Plan Cornell is a 56 y.o. male who carries a dx of PTSD, depression and chronic substance abuse. [place] [facility] [place] [facility] [place] reporting SI without plan or intent, depression. Pt reports poor adherence with medication, has not taken meds x 1 week. Plan: Pt does not want medication changes at this time, says he has been non-adherent with medication for a couple days prior to admission. Utox positive for opioids, fentanyl, and cocaine. Last used half a bag of heroin on 11/29/21, re-started on suboxone and home meds in the ED setting. Denies withdrawal sx. Q15 min safety checks, CV Monitor response to medications. Monitor for safety in the milieu. Discharge on stabilization. Patient seen. Chart reviewed. Discussed with team. Obtain collateral contact info?as needed 12/03/2021: Increased olanzapine to 15mg at bedtime 12/04: increased prazosin to 5 mg QHS. 12/05: increased prazosin to 6 mg QHS. increased prozac to 40 mg daily. 12/06: increased prazosin to 7 mg QHS. nightmare last night, poor sleep. 12/07: increased prazosin to 8 mg QHS. fractured, poor sleep last NOC. 12/08: increased prazosin to 9 mg QHS for tonight and to 10 mg QHS for tomorrow. sleep gradually improving. DC saturday. 12/09 Lower Prazosin back to 4 mg. He reports he had no RICARDO prior to increasing Prazosin and requests decrease to previous dosing. 12/10 Continue tx plan. I spent minutes with the patient and/or on the patient floor today, greater than?50% of which was spent counseling/coordinating care. Reason for contiued inpatient stay Substantial Risk for: harm to self and inability to function
[2021-12-10 22:33] VITALS: BP 138/90; PULSE 92; RESP 16; TEMP 36.5; O2SAT 96
[2021-12-10] MEDS: OLANZapine 7.5 MG TABLET 15 MG PO (22:36)
[2021-12-10] MEDS: Prazosin HCL 1 MG CAPSULE 4 MG PO (22:36)
[2021-12-11] MEDS: guaiFENesin DM 100/10/5 ML 5 ML SYRUP PO ×2 (01:15→08:44)
[2021-12-11] MEDS: Folic Acid 1 MG TABLET PO (08:43)
[2021-12-11] MEDS: Cyanocobalamin (Vitamin B-12) 100 MCG TABLET PO (08:43)
[2021-12-11] MEDS: NaPROXEN 500 MG TABLET PO (08:43)
[2021-12-11] MEDS: FLUoxetine HCl 20 MG CAPSULE 40 MG PO (08:43)
[2021-12-11] MEDS: Multivitamin TABLET 1 TAB PO (08:43)
[2021-12-11] MEDS: Buprenorphine/Naloxone 8/2 mg FILM 1 FILM SUBLINGUAL (08:44)
[2021-12-11 09:36] VITALS: BP 126/67; PULSE 70; RESP 20; O2SAT 97
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
[2021-12-11] MEDS: Buprenorphine/Naloxone 4/1 mg FILM 1 FILM SUBLINGUAL (12:04)
--- NOTE | 2021-12-11 12:14 | PC.NURSE ---
Patient alert, oriented x3. States he is looking forward to discharge, hopeful that he will be able to resume work at his previous place of employment. Denies SI/HI. Denies AH/VH. Reports chronic right knee pain is alleviated with naproxen. Reviewed discharge instructions, reviewed belongings with patient- verbalized understanding, no concerns reported, questions answered as asked. Gait steady, affect bright.
== END 2021-12-11 13:28 | disposition home or self-care (01) | DRG 755 ==
LOC: HO.ED 04:55 → HO.PADLT16 23:02
PROVIDERS: Physician Assistant Medical; Registered Nurse; Admitting Provider Psychiatry & Neurology Psychiatry; Emergency Provider Internal Medicine; Visit Provider Psychiatry & Neurology Psychiatry
DX: F43.12 Post-traumatic stress disorder, chronic (principal); R45.851 Suicidal ideations; F10.20 Alcohol dependence, uncomplicated; F11.20 Opioid dependence, uncomplicated; F17.210 Nicotine dependence, cigarettes, uncomplicated; Z20.822 Contact with and (suspected) exposure to COVID-19; Z71.6 Tobacco abuse counseling; Z79.899 Other long term (current) drug therapy
CPT/HCPCS: 36415; 80048; 80053; 80061; 80307; 81003; 82077; 82607; 82746; 83036; 83735; 84439; 84443; 85025; 87635; 93005; 93970; 96360; 99285

== ENCOUNTER 2022-01-16 22:03 | Inpatient (IN) | payer OTHER, MEDICAID, SELFPAY ==
--- NOTE | ~2022-01-16 | XR_ITS ---
EXAMINATION: XR CHEST CLINICAL INFORMATION: Shortness of breath COMPARISON: None TECHNIQUE: 2 views of the chest were obtained. FINDINGS: The cardiac and mediastinal contours are normal. There is question of retrosternal bullous disease or blebs on the lateral view. The lungs are otherwise clear. There is no pleural effusion or pneumothorax. There are degenerative changes of the spine. XR/XR chest 2V IMPRESSION: Question retrosternal bullous disease or blebs. Otherwise unremarkable exam.
[2022-01-16 22:10] VITALS: BP 116/82; PULSE 92; RESP 18; TEMP 36.6; O2SAT 95; BMI 31.1
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
[2022-01-16 23:04] LABS: COVID-19 Test Negative (Negative)
--- NOTE | 2022-01-17 | ECG_ITS ---
Test Reason : med clearance Blood Pressure : / mmHG Vent. Rate : 061 BPM Atrial Rate : 061 BPM P-R Int : 170 ms QRS Dur : 096 ms QT Int : 454 ms P-R-T Axes : 065 066 049 degrees QTc Int : 457 ms Poor data quality Normal sinus rhythm Normal ECG When compared with ECG of 30-NOV-2021 14:40, No significant change was found Referred By: Katie Segovia Electronically Signed By:MADELINE GARCIA MD
[2022-01-17 00:33] LABS: Appearance Urine CLEAR; Color Urine YELLOW; Glucose Urine UA NEG (NEG); Leukocyte Esterase Urine NEG (NEG); Nitrite Urine NEG (NEG); Specific Gravity - Urine >= 1.030 (1.005-1.025); Urine Blood TRACE (NEG); Urine Ketones 15 MG/DL (NEG); Urine Protein TRACE MG/DL (NEG-TRACE)
[2022-01-17 00:41] LABS: Bacteria Urine 1+ /LPF; Mucus Urine 2+ /LPF; Squamous Epithelial Cell Urine 1+ /LPF
[2022-01-17 00:46] LABS: Amphetamine Screen Urine Not Detected (Not Detect); Barbiturates, Urine Not Detected (Not Detect); Benzodiazepines Screen Urine Not Detected (Not Detect); Cannabinoid Screen Urine Not Detected (Not Detect); Cocaine Screen Urine POSITIVE (Not Detect); Fentanyl, urine POSITIVE (Not Detect); Opiate Screen Urine Not Detected (Not Detect); Phencyclidine Screen Urine Not Detected (Not Detect)
[2022-01-17 01:10] LABS: Hematocrit 44.3 % (42.0-52.0); Hemoglobin 15.2 g/dl (14.0-18.0); Mean Corpuscular HGB Conc 34.3 g/dl (31.0-36.0); Mean Corpuscular Volume 87.4 fL (80.0-98.0); Mean Platelet Volume 9.8 fL (9.4-12.4); Platelet Count 225 X10*3/uL (160-400); Red Blood Count 5.07 X10*6/uL (4.60-5.80); Red Cell Distribution Width 13.1 % (11.0-16.0); White Blood Count 9.5 X10*3/uL (4.8-10.8)
[2022-01-17 01:14] VITALS: BP 111/64; PULSE 71; RESP 16; TEMP 36.6; O2SAT 96
[2022-01-17 01:37] LABS: Ethanol < 10 mg/dL
[2022-01-17 01:43] LABS: Anion Gap 13 (12-20); Blood Urea Nitrogen 25 mg/dL (9-16); Calcium 9.9 mg/dL (8.4-10.2); Carbon Dioxide 28 mmol/L (22-29); Chloride 105 mmol/L (96-108); Creatinine Clr Calc Pharmacy 78.5; Estimated Glomerular Filt Rate > 60; Glucose Random 126 mg/dL (60-115); Potassium 3.7 mmol/L (3.3-5.1); Sodium 142 mmol/L (135-145)
--- NOTE | 2022-01-17 02:07 | PC.NURSE ---
Patient in bed watching TV, patient engaged well with BHN, disposition section 12 inpatient bed search, no distress observed/reported, med rec completed/pending provider's approval, behavior appropriate, VSS, will continue to monitor
[2022-01-17 02:59] LABS: Acetaminophen LAB < 1 mcg/mL (<30); Salicylate < 5.0 mg/dL (15-30)
--- NOTE | 2022-01-17 04:52 | PC.NURSE ---
Patient is restless, reporting racing thought, provider notified/ordered Ativan 2 mg PO/administered as ordered/pending effect, patient does intermittent screaming as a coping to counter his racing thought, patient i currently being closely observed for behavior escalation, med rec completed/pending provider's approval, patient is apparently under ETOH influence, thought process coherent, patient reported he stopped taking his medication for his bipolar, Sertraline and Serequel for over 2 years, care team consult ordered/pending evaluation in the morning, will continue to monitor.
--- NOTE | 2022-01-17 07:13 | PC.NURSE ---
patient appears to remain asleep at present respirations are even and unlabored patient appears in no distress
--- NOTE | 2022-01-17 20:05 | PC.ADMIT ---
A , male aged 56 years was [facility] at 1500 following referral from [facility] and [facility]. Pt has previous IPLOC here on M5 and M3. Pt has history of hospitalization for substances also. Pt presented to [facility] on 01/16/22 after pt's sister drove him there after he had told her of his feeling suicidal with a plan to inject himself with rat poison. In [facility] assessment pt stated that he had been feeling suicidal for the past month. Pt stated also that on 01/16/22 pt relapsed on cocaine, also having a beer and a nip. Pt reported he has been taking medications consistently. Pt reports a trauma history from childhood. Pt says he at times has AH in form of voices, that the voices pop up . Pt said at times the voices are commanding self harm / SI. Pt reports a distant history of self harm. Pt was quiet and calm through assessment, rocking back in forth in his chair and tapping his feet. 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 Pt said he does have SI at this time without a plan. Pt said he is tired and want to . Pt says he can seek out help from staff. Pt reports anxiety and depression he rates at 9/10. Pt denies medical issues at this time. Pt reports he gets suboxone IM every 28 days through [facility] [place] at [phone]. Pt is hoping for medication management at this time. This insurance underwriter sales was unable to verify pt's suboxone b/c after hours. Wrirv-wr-Hunqs done, admission orders obtained and treatment plan done. Pt is on 15 minute checks and sitting in the kitchen at this time.
[2022-01-17 20:45] VITALS: BP 95/63; PULSE 64; TEMP 36.2
[2022-01-17] MEDS: Prazosin HCL 1 MG CAPSULE 4 MG PO (20:47)
[2022-01-17] MEDS: LORazepam 1 MG TABLET PO (20:47)
[2022-01-17] MEDS: OLANZapine 10 MG TABLET PO (20:47)
[2022-01-17] MEDS: OLANZapine 2.5 MG TABLET PO (20:47)
[2022-01-18 06:00] VITALS: BP 138/88; PULSE 89; RESP 16; TEMP 36.6; O2SAT 96
[2022-01-18] MEDS: FLUoxetine HCl 20 MG CAPSULE 40 MG PO (08:40)
[2022-01-18] MEDS: Cyanocobalamin (Vitamin B-12) 100 MCG TABLET PO (08:40)
[2022-01-18] MEDS: Folic Acid 1 MG TABLET PO (08:40)
[2022-01-18 08:55] LABS: Estimated Average Glucose 100 mg/dL; Hemoglobin A1c % 5.1 %
[2022-01-18 09:17] LABS: Alanine Aminotransferase 13 U/L (0-40); Albumin Level 4.1 g/dL (3.5-5.0); Alkaline Phosphatase 80 U/L (39-117); Aspartate Amino Transferase 14 U/L (5-37); Bilirubin Total 0.5 mg/dL (0.0-1.0); Blood Urea Nitrogen 31 mg/dL (9-16); Calcium 9.8 mg/dL (8.4-10.2); Cholesterol 142 mg/dL; Creatinine Clr Calc Pharmacy 79.1; Estimated Glomerular Filt Rate > 60; Glucose Fasting 109 mg/dL (60-99); HDL Cholesterol 43 mg/dL; LDL Cholesterol Calculated 71 mg/dl; Magnesium 2.1 mg/dL (1.6-2.6); Thyroid Stimulating Hormone 1.67 uIU/mL (0.32-4.0); Total Protein 7.2 g/dL (6.5-8.0); Triglycerides 144 mg/dL
[2022-01-18 09:49] LABS: Anion Gap 13 (12-20); Carbon Dioxide 28 mmol/L (22-29); Chloride 103 mmol/L (96-108); Potassium 4.5 mmol/L (3.3-5.1); Sodium 139 mmol/L (135-145)
[2022-01-18 10:20] LABS: Folate 13.9 ng/mL (> or = 4.0); Vitamin B12 380 pg/mL (200-900)
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
[2022-01-18 22:57] VITALS: BP 113/65; PULSE 63
[2022-01-18] MEDS: OLANZapine 10 MG TABLET PO (22:59)
[2022-01-18] MEDS: OLANZapine 2.5 MG TABLET PO (22:59)
[2022-01-18] MEDS: risperiDONE 0.5 MG TABLET PO (23:00)
[2022-01-18] MEDS: Prazosin HCL 1 MG CAPSULE 4 MG PO (23:00)
[2022-01-19 06:00] VITALS: BP 123/64; PULSE 54; RESP 14; TEMP 36.6; O2SAT 96
[2022-01-19] MEDS: FLUoxetine HCl 20 MG CAPSULE 40 MG PO (08:37)
[2022-01-19] MEDS: Nicotine 21 MG PATCH.TD24 TRANSDERMA (08:37)
[2022-01-19] MEDS: Folic Acid 1 MG TABLET PO (08:37)
[2022-01-19] MEDS: Cyanocobalamin (Vitamin B-12) 100 MCG TABLET PO (09:00)
--- NOTE | 2022-01-19 16:26 | P.PNPSI_ITS ---
Subjective Subjective Date of Service: 01/19/22 Reason For Visit: PTSD, depression, SI, opiate/cocaine use Subjective Notes: Conditional Voluntary Healthcare Proxy: No Guardianship: No Medical Problems Affecting Mental Status: No Interim History: [facility] reports sleeping has improved. He reports feeling better. Continues with SI but is attempting to connect to milieu, peers, team-Visable on the unit. Asks for no medicine changes at this [id number] doses, levels although he reports compliance [employer]. Medication Compliance: Yes Side effects from medications: No Attending Groups: Intermittent Review of Systems Acute medical concerns: No Medical Review of Systems: unchanged Review of Systems Reports behavioral changes Psychiatric: Reports anxiety, Reports behavioral changes, Reports mood swings, Reports paranoia and Reports suicidal ideation Mental Status Exam Mental Status Exam Patient Appearance: Fatigued Patient Orientation: Person, Place, Time and Situation Level of Consciousness: Alert Patient Behavior: Talkative, Suspicious and Good Eye Contact Mood Description: Suspicious and Withdrawn Affect Description: Flat Patient Cognition Impaired: No Ability to Follow Directions: Good Speech Pattern: Spontaneous Speech Memory Description: Episodic Impaired Hallucinations: None Delusions: Paranoid Ideation Thought Process: Distracted Thought Content: positive for Circumstantial and positive for Suicidal Ideation Depressive Symptoms: Diff. Making Decisions, Unhappiness and Thoughts of /Suicide Abnormal Motor Activity Signs and Symptoms: Restlessness Judgement: Fair Diagnostics Vital Signs (24Hr): Vital Signs - 24 hr 01/18/22 22:57 01/19/22 06:00 Temperature 98 F Pulse Rate 63 54 Respiratory Rate 14 Blood Pressure 113/65 123/64 Pulse Oximetry 96 Oxygen Delivery Method Room Air BMI result Body Mass Index 31.1 Labs Results: 01/17/22 01:01 01/18/22 08:10 Labs: Laboratory Results - last 48 hr 01/18/22 01/18/22 01/18/22 08:10 08:10 08:10 Sodium 139 Potassium 4.5 D Chloride 103 Carbon Dioxide 28 Anion Gap 13 BUN 31 H Creatinine 1.18 Estim Creat Clear Calc 79.1 Estimated GFR > 60 Fasting Glucose 109 H Estimat Average Glucose 100 Hemoglobin A1c % 5.1 Calcium 9.8 Magnesium 2.1 Total Bilirubin 0.5 AST 14 ALT 13 Alkaline Phosphatase 80 Total Protein 7.2 Albumin 4.1 Triglycerides 144 Cholesterol 142 LDL Cholesterol, Calc 71 HDL Cholesterol 43 Vitamin B12 380 Folate 13.9 TSH 1.67 Free T4 1.10 Medications Medications Current Medications Acetaminophen (Acetaminophen 325 Mg Tablet) 650 mg PO Q6H PRN PRN Reason: Headache/Pain Mild Scale (1-3) Al Hydroxide/Mg Hydroxide (Magnesium Hydrox/Alum Hydrox 30 Ml Oral.Susp) 30 ml PO Q6H PRN PRN Reason: Heartburn/Nausea Cyanocobalamin (Cyanocobalamin (Vitamin B-12) 100 Mcg Tablet) 100 mcg PO DAILY RAS Last Admin: 01/19/22 09:00 Dose: 100 mcg Fluoxetine HCl (Fluoxetine Hcl 20 Mg Capsule) 40 mg PO DAILY RAS Last Admin: 01/19/22 08:37 Dose: 40 mg Folic Acid (Folic Acid 1 Mg Tablet) 1 mg PO DAILY RAS Last Admin: 01/19/22 08:37 Dose: 1 mg Hydroxyzine HCl (Hydroxyzine Hcl 25 Mg Tablet) 25 mg PO BEDTIME PRN PRN Reason: Anxiety Lorazepam (Lorazepam 1 Mg Tablet) 1 mg PO Q4H PRN PRN Reason: withdrawal sx, anxiety Last Admin: 01/17/22 20:47 Dose: 1 mg Magnesium Hydroxide (Milk Of Magnesia 30 Ml Oral.Susp) 30 ml PO DAILY PRN PRN Reason: Constipation Nicotine (Nicotine 21 Mg Patch.Td24) 21 mg TRANSDERMA DAILY RAS Last Admin: 01/19/22 08:37 Dose: 21 mg Olanzapine (Olanzapine 10 Mg Tablet) 10 mg PO BEDTIME RAS Last Admin: 01/18/22 22:59 Dose: 10 mg Olanzapine (Olanzapine 2.5 Mg Tablet) 2.5 mg PO BEDTIME RAS Last Admin: 01/18/22 22:59 Dose: 2.5 mg Prazosin HCl (Prazosin Hcl 1 Mg Capsule) 4 mg PO BEDTIME RAS; Protocol Last Admin: 01/18/22 23:00 Dose: 4 mg Risperidone (Risperidone 0.5 Mg Tablet) 0.5 mg PO BEDTIME RAS Last Admin: 01/18/22 23:00 Dose: 0.5 mg Allergies Allergies Allergy/AdvReac Type Severity Reaction Status Date / Time No Known Allergies Allergy Verified 01/16/22 22:10 [No Known Allergies*] Assessment & Plan I spent minutes with the patient and/or on the patient floor today, greater than?50% of which was spent counseling/coordinating care. Patient educated on: therapeutic strategies Informed Consent: further education needed Reason for contiued inpatient stay Substantial Risk for: harm to self, inability to function and rapid decompensation
[2022-01-19 21:15] VITALS: BP 115/72; PULSE 75
[2022-01-19] MEDS: OLANZapine 2.5 MG TABLET PO (21:31)
[2022-01-19] MEDS: Prazosin HCL 1 MG CAPSULE 4 MG PO (21:31)
[2022-01-19] MEDS: risperiDONE 0.5 MG TABLET PO (21:31)
[2022-01-19] MEDS: OLANZapine 10 MG TABLET PO (21:32)
[2022-01-20 06:41] VITALS: BP 119/63; PULSE 62; RESP 16; TEMP 36.6; O2SAT 94
[2022-01-20] MEDS: FLUoxetine HCl 20 MG CAPSULE 40 MG PO (08:53)
[2022-01-20] MEDS: Nicotine 21 MG PATCH.TD24 TRANSDERMA (08:53)
[2022-01-20] MEDS: Cyanocobalamin (Vitamin B-12) 100 MCG TABLET PO (08:54)
[2022-01-20] MEDS: Folic Acid 1 MG TABLET PO (08:54)
--- NOTE | 2022-01-20 17:21 | P.PNPSI_ITS ---
Subjective Subjective Date of Service: 01/20/22 Reason For Visit: PTSD, depression, SI, opiate/cocaine use Interim History: Patient reports that he remains quite depressed. Also continues to have intermittent SI and auditory hallucinations. He says that he missed his last Subutex dose which was a few days before this admission, because he had become disorganized in his thinking. He said he is going through Suboxone withdrawal. Outbound Sales Consultant discussed with pharmacist and it was impossible to verify; Subutex was filled on 01/11, however patient says he gets this medication at [facility] who may have picked up the field medication at the pharmacy to administer it. Outbound Sales Consultant decided to go ahead and give patient Suboxone 4/1 mg b.i.d. for now Mental Status Exam Mental Status Exam Narrative: Pt is alert and oriented; behavior is cooperative; sitting by self, with eyes closed, rocking; dressed in casual unkempt attire with adequate hygiene; mood is described as depressed and affect congruent, blunted; eye contact appropriate minimal; Speech is quiet; psychomotor retardation present; thought process is goal directed; Thought content is on struggling through symptoms; otherwise pertinent to relevant topics and without any delusional content, paranoid ideations or grandiosity; +passive SI; no HI. Positive for AH; Patients insight and judgment are impaired Diagnostics Vital Signs (24Hr): Vital Signs - 24 hr 01/19/22 21:15 01/20/22 06:41 Temperature 97.9 F Pulse Rate 75 62 Respiratory Rate 16 Blood Pressure 115/72 119/63 Pulse Oximetry 94 Oxygen Delivery Method Room Air BMI result Body Mass Index 31.1 Labs Results: 01/17/22 01:01 01/18/22 08:10 Medications Medications Current Medications Acetaminophen (Acetaminophen 325 Mg Tablet) 650 mg PO Q6H PRN PRN Reason: Headache/Pain Mild Scale (1-3) Al Hydroxide/Mg Hydroxide (Magnesium Hydrox/Alum Hydrox 30 Ml Oral.Susp) 30 ml PO Q6H PRN PRN Reason: Heartburn/Nausea Cyanocobalamin (Cyanocobalamin (Vitamin B-12) 100 Mcg Tablet) 100 mcg PO DAILY [facility] Last Admin: 01/20/22 08:54 Dose: 100 mcg Fluoxetine HCl (Fluoxetine Hcl 20 Mg Capsule) 40 mg PO DAILY [facility] Last Admin: 01/20/22 08:53 Dose: 40 mg Folic Acid (Folic Acid 1 Mg Tablet) 1 mg PO DAILY [facility] Last Admin: 01/20/22 08:54 Dose: 1 mg Hydroxyzine HCl (Hydroxyzine Hcl 25 Mg Tablet) 25 mg PO BEDTIME PRN PRN Reason: Anxiety Lorazepam (Lorazepam 1 Mg Tablet) 1 mg PO Q4H PRN PRN Reason: withdrawal sx, anxiety Last Admin: 01/17/22 20:47 Dose: 1 mg Magnesium Hydroxide (Milk Of Magnesia 30 Ml Oral.Susp) 30 ml PO DAILY PRN PRN Reason: Constipation Nicotine (Nicotine 21 Mg Patch.Td24) 21 mg TRANSDERMA DAILY [facility] Last Admin: 01/20/22 08:53 Dose: 21 mg Olanzapine (Olanzapine 10 Mg Tablet) 10 mg PO BEDTIME [facility] Last Admin: 01/19/22 21:32 Dose: 10 mg Olanzapine (Olanzapine 2.5 Mg Tablet) 2.5 mg PO BEDTIME [facility] Last Admin: 01/19/22 21:31 Dose: 2.5 mg Prazosin HCl (Prazosin Hcl 1 Mg Capsule) 4 mg PO BEDTIME [facility]; Protocol Last Admin: 01/19/22 21:31 Dose: 4 mg Risperidone (Risperidone 0.5 Mg Tablet) 0.5 mg PO BEDTIME [facility] Last Admin: 01/19/22 21:31 Dose: 0.5 mg Allergies Allergies Allergy/AdvReac Type Severity Reaction Status Date / Time No Known Allergies Allergy Verified 01/16/22 22:10 [No Known Allergies*] Assessment & Plan Assessment & Plan (1) Schizoaffective disorder, bipolar type: Status: Acute Code(s): F25.0 - Schizoaffective disorder, bipolar type (2) Chronic post-traumatic stress disorder (PTSD): Status: Acute Code(s): F43.12 - Post-traumatic stress disorder, chronic (3) Opioid use disorder, moderate, in early remission, on maintenance therapy, dependence: Status: Acute Code(s): F11.21 - Opioid dependence, in remission (4) Suicidal ideation: Status: Acute Code(s): R45.851 - Suicidal ideations Plan 56 yo male, history of schizoaffective disorder, bipolar type, PTSD, opiate, cocaine, alcohol use disorder with reports of SI of the past several weeks, break in sobriety. Identifies precipitants as issues with DTA and feeling benefits will be terminated. Pt reports medicine compliance however, it appears he is inconsistent with treatment. He has stopped Suboxone and does not want to re-start at this time-he was informed he may change his mind at any time and we can reconnect him to services. Meds reviewed with pt, DTA paperwork reviewed with pt, completed and sent to DTA and treatment discussed. Discussed GARCIA which pt declines at this time. Plan: Re-establish current regime Education about treatment options for pt. 01/20 patient has become stable on similar medication regimen in the past so will continue for now. Reports missed subluxated dosing on 01/11 and feeling withdrawal; Outbound Sales Consultant discussed with pharmacist and it was impossible to verify; Subutex was filled on 01/11, however patient says he gets this medication at [facility] who may have picked up the field medication at the pharmacy to administer it. -Outbound Sales Consultant decided to go ahead and give patient Suboxone 4/1 mg b.i.d. for now I spent minutes with the patient and/or on the patient floor today, greater than?50% of which was spent counseling/coordinating care. Patient educated on: diagnosis, medication risk/benefits and substance abuse Informed Consent: understands Reason for contiued inpatient stay Substantial Risk for: rapid decompensation
[2022-01-20 17:57] VITALS: BP 126/55; PULSE 76; RESP 18; TEMP 37.1; O2SAT 96
[2022-01-20] MEDS: Buprenorphine/Naloxone 4/1 mg FILM 1 FILM SUBLINGUAL ×2 (19:16→21:45)
[2022-01-20] MEDS: OLANZapine 2.5 MG TABLET PO (21:44)
[2022-01-20] MEDS: OLANZapine 10 MG TABLET PO (21:44)
[2022-01-20] MEDS: Prazosin HCL 1 MG CAPSULE 4 MG PO (21:44)
[2022-01-20] MEDS: risperiDONE 0.5 MG TABLET PO (21:45)
[2022-01-21 06:00] VITALS: BP 149/79; PULSE 69; RESP 16; TEMP 36.7; O2SAT 95
[2022-01-21] MEDS: Nicotine 21 MG PATCH.TD24 TRANSDERMA (08:12)
[2022-01-21] MEDS: Buprenorphine/Naloxone 4/1 mg FILM 1 FILM SUBLINGUAL ×2 (08:12→16:07)
[2022-01-21] MEDS: FLUoxetine HCl 20 MG CAPSULE 40 MG PO (08:12)
[2022-01-21] MEDS: Cyanocobalamin (Vitamin B-12) 100 MCG TABLET PO (08:12)
[2022-01-21] MEDS: Folic Acid 1 MG TABLET PO (08:12)
--- NOTE | 2022-01-21 15:13 | P.PNPSI_ITS ---
Subjective Subjective Date of Service: 01/21/22 Reason For Visit: PTSD, depression, SI, opiate/cocaine use Interim History: Patient lying in bed, awake. He says auditory hallucinations remain but denies any SI. He says that Suboxone 4 mg helped a little bit but he remains feeling in withdrawal. Like the dose increased to past home dose of 8 mg b.i.d. and 4 mg in the afternoon Mental Status Exam Mental Status Exam Narrative: Pt is alert and oriented; behavior is cooperative; sitting by self, with eyes closed, rocking; dressed in casual unkempt attire with adequate hygiene; mood is described as depressed and affect congruent, blunted; eye contact appropriate minimal; Speech is quiet; psychomotor retardation present; thought process is goal directed; Thought content is on struggling through symptoms; otherwise pertinent to relevant topics and without any delusional content, paranoid ideations or grandiosity; no SI; no HI. Positive for AH; Patients insight and judgment are impaired Diagnostics Vital Signs (24Hr): Vital Signs - 24 hr 01/20/22 17:57 01/21/22 06:00 Temperature 98.8 F 98.0 F Pulse Rate 76 69 Respiratory Rate 18 16 Blood Pressure 126/55 L 149/79 H Pulse Oximetry 96 95 Oxygen Delivery Method Room Air Room Air BMI result Body Mass Index 31.1 Labs Results: 01/17/22 01:01 01/18/22 08:10 Medications Medications Current Medications Acetaminophen (Acetaminophen 325 Mg Tablet) 650 mg PO Q6H PRN PRN Reason: Headache/Pain Mild Scale (1-3) Al Hydroxide/Mg Hydroxide (Magnesium Hydrox/Alum Hydrox 30 Ml Oral.Susp) 30 ml PO Q6H PRN PRN Reason: Heartburn/Nausea Buprenorphine/Naloxone (Buprenorphine/Naloxone 4/1 Mg Film) 1 film SUBLINGUAL NOW STA Stop: 01/21/22 15:12 Cyanocobalamin (Cyanocobalamin (Vitamin B-12) 100 Mcg Tablet) 100 mcg PO DAILY [facility] Last Admin: 01/21/22 08:12 Dose: 100 mcg Fluoxetine HCl (Fluoxetine Hcl 20 Mg Capsule) 40 mg PO DAILY [facility] Last Admin: 01/21/22 08:12 Dose: 40 mg Folic Acid (Folic Acid 1 Mg Tablet) 1 mg PO DAILY [facility] Last Admin: 01/21/22 08:12 Dose: 1 mg Hydroxyzine HCl (Hydroxyzine Hcl 25 Mg Tablet) 25 mg PO BEDTIME PRN PRN Reason: Anxiety Lorazepam (Lorazepam 1 Mg Tablet) 1 mg PO Q4H PRN PRN Reason: withdrawal sx, anxiety Last Admin: 01/17/22 20:47 Dose: 1 mg Magnesium Hydroxide (Milk Of Magnesia 30 Ml Oral.Susp) 30 ml PO DAILY PRN PRN Reason: Constipation Nicotine (Nicotine 21 Mg Patch.Td24) 21 mg TRANSDERMA DAILY [facility] Last Admin: 01/21/22 08:12 Dose: 21 mg Olanzapine (Olanzapine 10 Mg Tablet) 10 mg PO BEDTIME [facility] Last Admin: 01/20/22 21:44 Dose: 10 mg Olanzapine (Olanzapine 2.5 Mg Tablet) 2.5 mg PO BEDTIME [facility] Last Admin: 01/20/22 21:44 Dose: 2.5 mg Prazosin HCl (Prazosin Hcl 1 Mg Capsule) 4 mg PO BEDTIME [facility]; Protocol Last Admin: 01/20/22 21:44 Dose: 4 mg Risperidone (Risperidone 0.5 Mg Tablet) 0.5 mg PO BEDTIME [facility] Last Admin: 01/20/22 21:45 Dose: 0.5 mg Allergies Allergies Allergy/AdvReac Type Severity Reaction Status Date / Time No Known Allergies Allergy Verified 01/16/22 22:10 [No Known Allergies*] Assessment & Plan Assessment & Plan (1) Schizoaffective disorder, bipolar type: Status: Acute Code(s): F25.0 - Schizoaffective disorder, bipolar type (2) Chronic post-traumatic stress disorder (PTSD): Status: Acute Code(s): F43.12 - Post-traumatic stress disorder, chronic (3) Opioid use disorder, moderate, in early remission, on maintenance therapy, dependence: Status: Acute Code(s): F11.21 - Opioid dependence, in remission (4) Suicidal ideation: Status: Acute Code(s): R45.851 - Suicidal ideations Plan 56 yo male, history of schizoaffective disorder, bipolar type, PTSD, opiate, cocaine, alcohol use disorder with reports of SI of the past several weeks, break in sobriety. Identifies precipitants as issues with DTA and feeling benefits will be terminated. Pt reports medicine compliance however, it appears he is inconsistent with treatment. He has stopped Suboxone and does not want to re-start at this time-he was informed he may change his mind at any time and we can reconnect him to services. Meds reviewed with pt, DTA paperwork reviewed with pt, completed and sent to DTA and treatment discussed. Discussed GARCIA which pt declines at this time. Plan: Re-establish current regime Education about treatment options for pt. 01/20 patient has become stable on similar medication regimen in the past so will continue for now.? Reports missed subluxated dosing on 01/11 and feeling withd alex; Entry Level Receptionist discussed with pharmacist and it was impossible to verify; Subutex was filled on 01/11, however patient says he gets this medication at [facility] who may have picked up the field medication at the pharmacy to administer it.? -Entry Level Receptionist decided to go ahead and give patient Suboxone 4/1 mg b.i.d. for now 01/21 change to home dose of Suboxone 8/2 mg b.i.d. and 4/1 mg in the afternoon I spent minutes with the patient and/or on the patient floor today, greater than?50% of which was spent counseling/coordinating care. Patient educated on: diagnosis, medication risk/benefits and substance abuse Informed Consent: understands Reason for contiued inpatient stay Substantial Risk for: rapid decompensation
[2022-01-21 16:00] VITALS: BP 148/71; PULSE 79; TEMP 36.7; O2SAT 95
[2022-01-21] MEDS: Buprenorphine/Naloxone 8/2 mg FILM 1 FILM SUBLINGUAL (18:50)
[2022-01-21] MEDS: OLANZapine 2.5 MG TABLET PO (22:02)
[2022-01-21] MEDS: OLANZapine 10 MG TABLET PO (22:02)
[2022-01-21] MEDS: Prazosin HCL 1 MG CAPSULE 4 MG PO (22:02)
[2022-01-21] MEDS: risperiDONE 0.5 MG TABLET PO (22:02)
[2022-01-22 06:00] VITALS: BP 127/75; PULSE 80; RESP 18; TEMP 36.7; O2SAT 96
[2022-01-22] MEDS: Cyanocobalamin (Vitamin B-12) 100 MCG TABLET PO (08:05)
[2022-01-22] MEDS: Folic Acid 1 MG TABLET PO (08:05)
[2022-01-22] MEDS: FLUoxetine HCl 20 MG CAPSULE 40 MG PO (08:05)
[2022-01-22] MEDS: Nicotine 21 MG PATCH.TD24 TRANSDERMA (08:06)
[2022-01-22] MEDS: Buprenorphine/Naloxone 8/2 mg FILM 1 FILM SUBLINGUAL ×2 (08:06→20:23)
[2022-01-22] MEDS: Acetaminophen 325 MG TABLET 650 MG PO ×2 (08:11→22:42)
[2022-01-22] MEDS: Buprenorphine/Naloxone 4/1 mg FILM 1 FILM SUBLINGUAL (13:06)
--- NOTE | 2022-01-22 17:09 | HO.PSYCHPN ---
Subjective Subjective Date of Service: 01/22/22 Reason For Visit: PTSD, depression, SI, opiate/cocaine use Subjective Notes: Conditional Voluntary Interim History: Cornell reports sleep disturbance, flashbacks, voices. Review of medications, dosages and strategies to manage current reported symptoms. Medication Compliance: Yes Side effects from medications: No Attending Groups: Intermittent Review of Systems Acute medical concerns: No Medical Review of Systems: unchanged Review of Systems Psychiatric: Reports abnormal sleep pattern, Reports anxiety, Reports depression, Reports difficulty concentrating, Reports auditory hallucinations, Reports hopelessness, Reports irritability and Reports other (flashbacks) Mental Status Exam Mental Status Exam Patient Appearance: Appropriate Patient Orientation: Person, Place, Time and Situation Level of Consciousness: Alert Patient Behavior: Talkative and Good Eye Contact Mood Description: Depressed and Anxious Affect Description: Constricted Ability to Follow Directions: Good Speech Pattern: Spontaneous Speech Memory Description: Intact Hallucinations: Auditory Delusions: Paranoid Ideation Perceptual Disturbances: Depersonalization and Derealization Thought Process: Rumination Thought Content: positive for Circumstantial Depressive Symptoms: Increased Anxiety (flashbacks) and Difficulty Sleeping Abnormal Motor Activity Signs and Symptoms: Restlessness Judgement: Fair Diagnostics Vital Signs (24Hr): Vital Signs - 24 hr 01/22/22 06:00 Temperature 98.0 F Pulse Rate 80 Respiratory Rate 18 Blood Pressure 127/75 Pulse Oximetry 96 BMI result Body Mass Index 31.1 Labs Results: 01/17/22 01:01 01/18/22 08:10 Medications Medications Current Medications Acetaminophen (Acetaminophen 325 Mg Tablet) 650 mg PO Q6H PRN PRN Reason: Headache/Pain Mild Scale (1-3) Last Admin: 01/22/22 08:11 Dose: 650 mg Al Hydroxide/Mg Hydroxide (Magnesium Hydrox/Alum Hydrox 30 Ml Oral.Susp) 30 ml PO Q6H PRN PRN Reason: Heartburn/Nausea Buprenorphine/Naloxone (Buprenorphine/Naloxone 4/1 Mg Film) 1 film SUBLINGUAL DAILY@1300 [facility] Last Admin: 01/22/22 13:06 Dose: 1 film Buprenorphine/Naloxone (Buprenorphine/Naloxone 8/2 Mg Film) 1 film SUBLINGUAL BID [facility] Last Admin: 01/22/22 08:06 Dose: 1 film Cyanocobalamin (Cyanocobalamin (Vitamin B-12) 100 Mcg Tablet) 100 mcg PO DAILY [facility] Last Admin: 01/22/22 08:05 Dose: 100 mcg Fluoxetine HCl (Fluoxetine Hcl 20 Mg Capsule) 40 mg PO DAILY [facility] Last Admin: 01/22/22 08:05 Dose: 40 mg Folic Acid (Folic Acid 1 Mg Tablet) 1 mg PO DAILY [facility] Last Admin: 01/22/22 08:05 Dose: 1 mg Hydroxyzine HCl (Hydroxyzine Hcl 25 Mg Tablet) 25 mg PO BEDTIME PRN PRN Reason: Anxiety Lorazepam (Lorazepam 1 Mg Tablet) 1 mg PO Q4H PRN PRN Reason: withdrawal sx, anxiety Last Admin: 01/17/22 20:47 Dose: 1 mg Magnesium Hydroxide (Milk Of Magnesia 30 Ml Oral.Susp) 30 ml PO DAILY PRN PRN Reason: Constipation Nicotine (Nicotine 21 Mg Patch.Td24) 21 mg TRANSDERMA DAILY [facility] Last Admin: 01/22/22 08:06 Dose: 21 mg Olanzapine (Olanzapine 10 Mg Tablet) 10 mg PO BEDTIME [facility] Last Admin: 01/21/22 22:02 Dose: 10 mg Olanzapine (Olanzapine 2.5 Mg Tablet) 2.5 mg PO BEDTIME [facility] Last Admin: 01/21/22 22:02 Dose: 2.5 mg Prazosin HCl (Prazosin Hcl 1 Mg Capsule) 4 mg PO BEDTIME [facility]; Protocol Last Admin: 01/21/22 22:02 Dose: 4 mg Risperidone (Risperidone 0.5 Mg Tablet) 0.5 mg PO BEDTIME [facility] Last Admin: 01/21/22 22:02 Dose: 0.5 mg Allergies Allergies Allergy/AdvReac Type Severity Reaction Status Date / Time No Known Allergies Allergy Verified 01/16/22 22:10 [No Known Allergies*] Assessment & Plan Assessment & Plan (1) Schizoaffective disorder, bipolar type: Status: Acute Code(s): F25.0 - Schizoaffective disorder, bipolar type (2) Chronic post-traumatic stress disorder (PTSD): Status: Acute Code(s): F43.12 - Post-traumatic stress disorder, chronic (3) Opioid use disorder, moderate, in early remission, on maintenance therapy, dependence: Status: Acute Code(s): F11.21 - Opioid dependence, in remission (4) Suicidal ideation: Status: Acute Code(s): R45.851 - Suicidal ideations Plan 56 yo male, history of schizoaffective disorder, bipolar type, PTSD, opiate, cocaine, alcohol use disorder with reports of SI of the past several weeks, break in sobriety. Identifies precipitants as issues with DTA and feeling benefits will be terminated. Pt reports medicine compliance however, it appears he is inconsistent with treatment. He has stopped Suboxone and does not want to re-start at this time-he was informed he may change his mind at any time and we can reconnect him to services. Meds reviewed with pt, DTA paperwork reviewed with pt, completed and sent to DTA and treatment discussed. Discussed GARCIA which pt declines at this time. Plan: Re-establish current regime Education about treatment options for pt. 01/20 patient has become stable on similar medication regimen in the past so will continue for now.? Reports missed subluxated dosing on 01/11 and feeling withdrawal; Quality Improvement Coordinator discussed with pharmacist and it was impossible to verify; Subutex was filled on 01/11, however patient says he gets this medication at [facility] who may have picked up the field medication at the pharmacy to administer it.? -Quality Improvement Coordinator decided to go ahead and give patient Suboxone 4/1 mg b.i.d. for now 01/21 change to home dose of Suboxone 8/2 mg b.i.d. and 4/1 mg in the afternoon 01/22/22- Reports difficulty with sleep, flashbacks, voices. -Discontinue Risperdal -Increase Olanzapine to 15 mg HS -Prazosin 1 mg hs I spent minutes with the patient and/or on the patient floor today, greater than?50% of which was spent counseling/coordinating care. Patient educated on: medication risk/benefits and therapeutic strategies Informed Consent: understands and further education needed Reason for contiued inpatient stay Substantial Risk for: rapid decompensation
[2022-01-22 20:10] VITALS: BP 118/69; PULSE 78; TEMP 36.5
[2022-01-22] MEDS: Prazosin HCL 1 MG CAPSULE 4 MG PO (22:29)
[2022-01-22] MEDS: Prazosin HCL 1 MG CAPSULE PO (22:31)
[2022-01-22] MEDS: OLANZapine 7.5 MG TABLET 15 MG PO (22:33)
[2022-01-23 06:26] VITALS: BP 131/63; PULSE 78; RESP 16; TEMP 36.3; O2SAT 95
[2022-01-23] MEDS: Nicotine 21 MG PATCH.TD24 TRANSDERMA (07:58)
[2022-01-23] MEDS: Buprenorphine/Naloxone 8/2 mg FILM 1 FILM SUBLINGUAL ×2 (07:58→21:40)
[2022-01-23] MEDS: Cyanocobalamin (Vitamin B-12) 100 MCG TABLET PO (07:59)
[2022-01-23] MEDS: FLUoxetine HCl 20 MG CAPSULE 40 MG PO (07:59)
[2022-01-23] MEDS: Folic Acid 1 MG TABLET PO (07:59)
[2022-01-23] MEDS: Buprenorphine/Naloxone 4/1 mg FILM 1 FILM SUBLINGUAL (12:54)
[2022-01-23 16:48] VITALS: BP 120/78; PULSE 80; RESP 18; TEMP 36.4; O2SAT 96
--- NOTE | 2022-01-23 19:23 | HO.PSYCHPN ---
Subjective Subjective Date of Service: 01/23/22 Reason For Visit: PTSD, depression, SI, opiate/cocaine use Subjective Notes: Conditional Voluntary Interim History: Reports some improvement in sleep, decrease in flashbacks, voices. Discussed Suboxone-reviewed SE he experienced from injectable. Asked appropriate questions regarding remaining on strips. Reports work opportunities with son in law. Considering a move to [place] with daughter. Discussed opportunities for his future and wanting to take advantage of offers presented to him. Planning for the future. Medication Compliance: Yes Side effects from medications: No Attending Groups: Intermittent Review of Systems Acute medical concerns: No Medical Review of Systems: unchanged Review of Systems Psychiatric: Reports no additional psychiatric complaints Mental Status Exam Mental Status Exam Patient Appearance: Appropriate Patient Orientation: Person, Place, Time and Situation Level of Consciousness: Alert Patient Behavior: Talkative and Good Eye Contact Mood Description: Calm Affect Description: Flat Ability to Follow Directions: Good Speech Pattern: Spontaneous Speech Memory Description: Intact Hallucinations: None Delusions: Not Present Thought Process: Intact Thought Content: positive for Intact and positive for Suicidal Ideation (denies) Judgement: Good Diagnostics Vital Signs (24Hr): Vital Signs - 24 hr 01/22/22 20:10 01/23/22 06:26 01/23/22 16:48 Temperature 97.7 F 97.4 F 97.6 F Pulse Rate 78 78 80 Respiratory Rate 16 18 Blood Pressure 118/69 131/63 120/78 Pulse Oximetry 95 96 Oxygen Delivery Method Room Air Room Air BMI result Body Mass Index 31.1 Labs Results: 01/17/22 01:01 01/18/22 08:10 Medications Medications Current Medications Acetaminophen (Acetaminophen 325 Mg Tablet) 650 mg PO Q6H PRN PRN Reason: Headache/Pain Mild Scale (1-3) Last Admin: 01/22/22 22:42 Dose: 650 mg Al Hydroxide/Mg Hydroxide (Magnesium Hydrox/Alum Hydrox 30 Ml Oral.Susp) 30 ml PO Q6H PRN PRN Reason: Heartburn/Nausea Buprenorphine/Naloxone (Buprenorphine/Naloxone 4/1 Mg Film) 1 film SUBLINGUAL DAILY@1300 [facility] Last Admin: 01/23/22 12:54 Dose: 1 film Buprenorphine/Naloxone (Buprenorphine/Naloxone 8/2 Mg Film) 1 film SUBLINGUAL BID [facility] Last Admin: 01/23/22 07:58 Dose: 1 film Cyanocobalamin (Cyanocobalamin (Vitamin B-12) 100 Mcg Tablet) 100 mcg PO DAILY [facility] Last Admin: 01/23/22 07:59 Dose: 100 mcg Fluoxetine HCl (Fluoxetine Hcl 20 Mg Capsule) 40 mg PO DAILY [facility] Last Admin: 01/23/22 07:59 Dose: 40 mg Folic Acid (Folic Acid 1 Mg Tablet) 1 mg PO DAILY [facility] Last Admin: 01/23/22 07:59 Dose: 1 mg Hydroxyzine HCl (Hydroxyzine Hcl 25 Mg Tablet) 25 mg PO BEDTIME PRN PRN Reason: Anxiety Lorazepam (Lorazepam 1 Mg Tablet) 1 mg PO Q4H PRN PRN Reason: withdrawal sx, anxiety Last Admin: 01/17/22 20:47 Dose: 1 mg Magnesium Hydroxide (Milk Of Magnesia 30 Ml Oral.Susp) 30 ml PO DAILY PRN PRN Reason: Constipation Multivitamins/Vitamin C (Multivitamin Tablet) 1 tab PO DAILY [facility] Nicotine (Nicotine 21 Mg Patch.Td24) 21 mg TRANSDERMA DAILY [facility] Last Admin: 01/23/22 07:58 Dose: 21 mg Olanzapine (Olanzapine 7.5 Mg Tablet) 15 mg PO BEDTIME [facility] Last Admin: 01/22/22 22:33 Dose: 15 mg Prazosin HCl (Prazosin Hcl 1 Mg Capsule) 4 mg PO BEDTIME [facility]; Protocol Last Admin: 01/22/22 22:29 Dose: 4 mg Prazosin HCl (Prazosin Hcl 1 Mg Capsule) 1 mg PO BEDTIME [facility]; Protocol Last Admin: 01/22/22 22:31 Dose: 1 mg Vitamin D (Cholecalciferol (Vitamin D3) 10 Mcg Tablet) 10 mcg PO DAILY [facility] Allergies Allergies Allergy/AdvReac Type Severity Reaction Status Date / Time No Known Allergies Allergy Verified 01/16/22 22:10 [No Known Allergies*] Assessment & Plan Assessment & Plan (1) Schizoaffective disorder, bipolar type: Status: Acute Code(s): F25.0 - Schizoaffective disorder, bipolar type (2) Chronic post-traumatic stress disorder (PTSD): Status: Acute Code(s): F43.12 - Post-traumatic stress disorder, chronic (3) Opioid use disorder, moderate, in early remission, on maintenance therapy, dependence: Status: Acute Code(s): F11.21 - Opioid dependence, in remission (4) Suicidal ideation: Status: Acute Code(s): R45.851 - Suicidal ideations Plan 56 yo male, history of schizoaffective disorder, bipolar type, PTSD, opiate, cocaine, alcohol use disorder with reports of SI of the past several weeks, break in sobriety. Identifies precipitants as issues with DTA and feeling benefits will be terminated. Pt reports medicine compliance however, it appears he is inconsistent with treatment. He has stopped Suboxone and does not want to re-start at this time-he was informed he may change his mind at any time and we can reconnect him to services. Meds reviewed with pt, DTA paperwork reviewed with pt, completed and sent to DTA and treatment discussed. Discussed GARCIA which pt declines at this time. Plan: Re-establish current regime Education about treatment options for pt. 01/20 patient has become stable on similar medication regimen in the past so will continue for now.? Reports missed subluxated dosing on 01/11 and feeling withdrawal; Legal Paraprofessional discussed with pharmacist and it was impossible to verify; Subutex was filled on 01/11, however patient says he gets this medication at [facility] who may have picked up the field medication at the pharmacy to administer it.? -Legal Paraprofessional decided to go ahead and give patient Suboxone 4/1 mg b.i.d. for now 01/21 change to home dose of Suboxone 8/2 mg b.i.d. and 4/1 mg in the afternoon 01/23/22 No medication changes today. Discharge planning. I spent minutes with the patient and/or on the patient floor today, greater than?50% of which was spent counseling/coordinating care. Patient educated on: medication risk/benefits and therapeutic strategies Informed Consent: understands and further education needed Reason for contiued inpatient stay Substantial Risk for: rapid decompensation
[2022-01-23] MEDS: OLANZapine 7.5 MG TABLET 15 MG PO (20:30)
[2022-01-23] MEDS: Prazosin HCL 1 MG CAPSULE PO (20:30)
[2022-01-23] MEDS: Prazosin HCL 1 MG CAPSULE 4 MG PO (20:30)
[2022-01-24 06:32] VITALS: BP 129/63; PULSE 73; RESP 17; TEMP 36.5; O2SAT 96
[2022-01-24] MEDS: Cholecalciferol (Vitamin D3) 10 MCG TABLET PO (08:07)
[2022-01-24] MEDS: Buprenorphine/Naloxone 8/2 mg FILM 1 FILM SUBLINGUAL ×2 (08:07→19:50)
[2022-01-24] MEDS: Folic Acid 1 MG TABLET PO (08:07)
[2022-01-24] MEDS: FLUoxetine HCl 20 MG CAPSULE 40 MG PO (08:07)
[2022-01-24] MEDS: Multivitamin TABLET 1 TAB PO (08:07)
[2022-01-24] MEDS: Nicotine 21 MG PATCH.TD24 TRANSDERMA (08:07)
[2022-01-24] MEDS: Cyanocobalamin (Vitamin B-12) 100 MCG TABLET PO (08:07)
[2022-01-24] MEDS: Buprenorphine/Naloxone 4/1 mg FILM 1 FILM SUBLINGUAL (13:13)
[2022-01-24 17:27] VITALS: BP 128/69; PULSE 85; RESP 16; TEMP 36.6; O2SAT 98
--- NOTE | 2022-01-24 18:02 | HO.PSYCHPN ---
Subjective Subjective Date of Service: 01/24/22 Reason For Visit: PTSD, depression, SI, opiate/cocaine use Subjective Notes: Conditional Voluntary Healthcare Proxy: No Guardianship: No Medical Problems Affecting Mental Status: No Interim History: Pt reports last evening he experienced shortness of breath when in bed. CXR completed with question of blebs or retrosternal bullous disease. Discussed with pt. Discussed referral to pulmonology for OP consult. Pt declines, states he has been told in the past he has blebs and there is no active treatment for this. Reviewed consultation referral process should he change his mind. Pt denies any symptoms since last night and believes this is a normal finding from his experience. Discussed discharge planning. Pt and partner he reports have decided to take a break from each other. Pt states he will go to [place] to live with his daughter and work with his son-in-law, re-establish his sobriety and move forward when he has some sobriety time in the bank Medication Compliance: Yes Side effects from medications: No Attending Groups: Yes Review of Systems Acute medical concerns: No Medical Review of Systems: unchanged Review of Systems Psychiatric: Reports no additional psychiatric complaints Mental Status Exam Mental Status Exam Patient Appearance: Appropriate Patient Orientation: Person, Place, Time and Situation Level of Consciousness: Alert Patient Behavior: Appropriate, Talkative, Cooperative and Good Eye Contact Mood Description: Appropriate Affect Description: Appropriate Patient Cognition Impaired: No Ability to Follow Directions: Good Speech Pattern: Spontaneous Speech Memory Description: Intact Hallucinations: None Delusions: Not Present Thought Process: Intact Thought Content: positive for Intact Judgement: Good Diagnostics Vital Signs (24Hr): Vital Signs - 24 hr 01/24/22 06:32 01/24/22 17:27 Temperature 97.7 F 97.9 F Pulse Rate 73 85 Respiratory Rate 17 16 Blood Pressure 129/63 128/69 Pulse Oximetry 96 98 Oxygen Delivery Method Room Air Room Air BMI result Body Mass Index 31.1 Labs Results: 01/17/22 01:01 01/18/22 08:10 Imaging Radiology Impressions: ITS Impressions Chest X-Ray 01/24/22 16:00 IMPRESSION: Question retrosternal bullous disease or blebs. Otherwise unremarkable exam. Medications Medications Current Medications Acetaminophen (Acetaminophen 325 Mg Tablet) 650 mg PO Q6H PRN PRN Reason: Headache/Pain Mild Scale (1-3) Last Admin: 01/22/22 22:42 Dose: 650 mg Al Hydroxide/Mg Hydroxide (Magnesium Hydrox/Alum Hydrox 30 Ml Oral.Susp) 30 ml PO Q6H PRN PRN Reason: Heartburn/Nausea Buprenorphine/Naloxone (Buprenorphine/Naloxone 4/1 Mg Film) 1 film SUBLINGUAL DAILY@1300 [facility] Last Admin: 01/24/22 13:13 Dose: 1 film Buprenorphine/Naloxone (Buprenorphine/Naloxone 8/2 Mg Film) 1 film SUBLINGUAL BID [facility] Last Admin: 01/24/22 08:07 Dose: 1 film Cyanocobalamin (Cyanocobalamin (Vitamin B-12) 100 Mcg Tablet) 100 mcg PO DAILY [facility] Last Admin: 01/24/22 08:07 Dose: 100 mcg Fluoxetine HCl (Fluoxetine Hcl 20 Mg Capsule) 40 mg PO DAILY [facility] Last Admin: 01/24/22 08:07 Dose: 40 mg Folic Acid (Folic Acid 1 Mg Tablet) 1 mg PO DAILY [facility] Last Admin: 01/24/22 08:07 Dose: 1 mg Hydroxyzine HCl (Hydroxyzine Hcl 25 Mg Tablet) 25 mg PO BEDTIME PRN PRN Reason: Anxiety Lorazepam (Lorazepam 1 Mg Tablet) 1 mg PO Q4H PRN PRN Reason: withdrawal sx, anxiety Last Admin: 01/17/22 20:47 Dose: 1 mg Magnesium Hydroxide (Milk Of Magnesia 30 Ml Oral.Susp) 30 ml PO DAILY PRN PRN Reason: Constipation Multivitamins/Vitamin C (Multivitamin Tablet) 1 tab PO DAILY [facility] Last Admin: 01/24/22 08:07 Dose: 1 tab Nicotine (Nicotine 21 Mg Patch.Td24) 21 mg TRANSDERMA DAILY [facility] Last Admin: 01/24/22 08:07 Dose: 21 mg Olanzapine (Olanzapine 7.5 Mg Tablet) 15 mg PO BEDTIME [facility] Last Admin: 01/23/22 20:30 Dose: 15 mg Prazosin HCl (Prazosin Hcl 1 Mg Capsule) 4 mg PO BEDTIME [facility]; Protocol Last Admin: 01/23/22 20:30 Dose: 4 mg Prazosin HCl (Prazosin Hcl 1 Mg Capsule) 1 mg PO BEDTIME [facility]; Protocol Last Admin: 01/23/22 20:30 Dose: 1 mg Vitamin D (Cholecalciferol (Vitamin D3) 10 Mcg Tablet) 10 mcg PO DAILY [facility] Last Admin: 01/24/22 08:07 Dose: 10 mcg Allergies Allergies Allergy/AdvReac Type Severity Reaction Status Date / Time No Known Allergies Allergy Verified 01/16/22 22:10 [No Known Allergies*] Assessment & Plan Assessment & Plan (1) Schizoaffective disorder, bipolar type: Status: Acute Code(s): F25.0 - Schizoaffective disorder, bipolar type (2) Chronic post-traumatic stress disorder (PTSD): Status: Acute Code(s): F43.12 - Post-traumatic stress disorder, chronic (3) Opioid use disorder, moderate, in early remission, on maintenance therapy, dependence: Status: Acute Code(s): F11.21 - Opioid dependence, in remission (4) Suicidal ideation: Status: Acute Code(s): R45.851 - Suicidal ideations Plan 56 yo male, history of schizoaffective disorder, bipolar type, PTSD, opiate, cocaine, alcohol use disorder with reports of SI of the past several weeks, break in sobriety. Identifies precipitants as issues with DTA and feeling benefits will be terminated. Pt reports medicine compliance however, it appears he is inconsistent with treatment. He has stopped Suboxone and does not want to re-start at this time-he was informed he may change his mind at any time and we can reconnect him to services. Meds reviewed with pt, DTA paperwork reviewed with pt, completed and sent to DTA and treatment discussed. Discussed GARCIA which pt declines at this time. Plan: Re-establish current regime Education about treatment options for pt. 01/20 patient has become stable on similar medication regimen in the past so will continue for now.? Reports missed subluxated dosing on 01/11 and feeling withdrawal; Manager Spa discussed with pharmacist and it was impossible to verify; Subutex was filled on 01/11, however patient says he gets this medication at [facility] who may have picked up the field medication at the pharmacy to administer it.? -Manager Spa decided to go ahead and give patient Suboxone 4/1 mg b.i.d. for now 01/21 change to home dose of Suboxone 8/2 mg b.i.d. and 4/1 mg in the afternoon 01/23/22 No medication changes today. Discharge planning. 01/24/22 Discharge 01/25/22. I spent minutes with the patient and/or on the patient floor today, greater than?50% of which was spent counseling/coordinating care. Patient educated on: medication risk/benefits, therapeutic strategies and medical condition Informed Consent: understands Reason for contiued inpatient stay Substantial Risk for: stable for discharge
[2022-01-24] MEDS: Prazosin HCL 1 MG CAPSULE PO (19:49)
[2022-01-24] MEDS: Prazosin HCL 1 MG CAPSULE 4 MG PO (19:49)
[2022-01-24] MEDS: OLANZapine 7.5 MG TABLET 15 MG PO (19:50)
[2022-01-25 06:45] VITALS: BP 139/69; PULSE 63; RESP 17; TEMP 35.9; O2SAT 95
[2022-01-25] MEDS: Cholecalciferol (Vitamin D3) 10 MCG TABLET PO (08:17)
[2022-01-25] MEDS: Folic Acid 1 MG TABLET PO (08:17)
[2022-01-25] MEDS: FLUoxetine HCl 20 MG CAPSULE 40 MG PO (08:17)
[2022-01-25] MEDS: Nicotine 21 MG PATCH.TD24 TRANSDERMA (08:17)
[2022-01-25] MEDS: Buprenorphine/Naloxone 8/2 mg FILM 1 FILM SUBLINGUAL (08:17)
[2022-01-25] MEDS: Cyanocobalamin (Vitamin B-12) 100 MCG TABLET PO (08:18)
[2022-01-25] MEDS: Multivitamin TABLET 1 TAB PO (08:18)
[2022-01-25] MEDS: Buprenorphine/Naloxone 4/1 mg FILM 1 FILM SUBLINGUAL (13:37)
--- NOTE | 2022-01-25 15:46 | PM.PSYDC ---
DS: Providers Provider Date of Service: 01/25/22 Date of admission: 01/17/22 14:20 Date of discharge: 01/25/22 Primary care physician: Unknown Physician Admitting clinician: Gabriela Breaux Attending physician on admission: Zoran Rice Attending physician on discharge: Zoran Rice Discharging clinician: Gabriela Breaux DS: Diagnosis Discharge Diagnosis (1) Schizoaffective disorder, bipolar type: Status: Acute (2) Chronic post-traumatic stress disorder (PTSD): Status: Acute (3) Opioid use disorder, moderate, in early remission, on maintenance therapy, dependence: Status: Acute (4) Suicidal ideation: Status: Resolved DS: Medications Discharge Medications Home Medications: Previous Rx's Medication Instructions Recorded buprenorphine 4 mg-naloxone 1 mg 1 film sublingual DAILY@1300 #0 ea 01/25/22 sublingual film (Suboxone) buprenorphine 8 mg-naloxone 2 mg 1 film buccal DAILY 1 day #1 ea 01/25/22 sublingual film (Suboxone) buprenorphine 8 mg-naloxone 2 mg 1 film sublingual BID #0 ea 01/25/22 sublingual film (Suboxone) cholecalciferol (vitamin D3) 10 10 mcg PO DAILY #30 tabs 01/25/22 mcg (400 unit) tablet (Vitamin D3) cyanocobalamin (vitamin B-12) 100 100 mcg PO DAILY 30 days #30 tabs 01/25/22 mcg tablet (Vitamin B-12) fluoxetine 20 mg capsule 40 mg PO DAILY 30 days #60 caps 01/25/22 folic acid 1 mg tablet 1 tab PO DAILY #30 tabs 01/25/22 multivitamin (Daily-Ty) 1 tab PO DAILY #30 tabs 01/25/22 naloxone 4 mg/actuation nasal 4 mg intranasal Q2M PRN opioid 01/25/22 spray (Narcan) overdose #2 ea nicotine 21 mg/24 hr daily 21 mg transdermal DAILY #30 ea 01/25/22 transdermal patch olanzapine 7.5 mg tablet 15 mg PO BEDTIME #60 tabs 01/25/22 prazosin 5 mg capsule 5 mg PO BEDTIME #30 caps 01/25/22 Mental Status Exam Mental Status Exam Patient Appearance: Appropriate Patient Orientation: Person, Place, Time and Situation Level of Consciousness: Alert Patient Behavior: Appropriate, Talkative, Cooperative and Good Eye Contact Mood Description: Appropriate Affect Description: Appropriate Patient Cognition Impaired: No Ability to Follow Directions: Good Speech Pattern: Spontaneous Speech Memory Description: Intact Hallucinations: None Delusions: Not Present Thought Process: Intact Thought Content: positive for Intact Judgement: Good Data Imaging Diagnostic Imaging Impressions Chest X-Ray 01/24/22 16:00 IMPRESSION: Question retrosternal bullous disease or blebs. Otherwise unremarkable exam. DS: Summary Hospital Course Hospital Course: Admission to adult psychiatry to address exacerbation of symptoms of schizoaffective disorder, bipolar typre, PTSD and opiate use disorder. Olanzapine and Prazosin were increased during pt's admission. Cornell identified conflict with his partner as a main issue precipitating crisis. During this hospitalization he made arrangements to move to [place] to stay with his daughter and to work with his son in law. He cited the relationship as being destructive and causing several crises in his life that were destabilizing for his health and sobriety. He reports being confronted by his daughter about making a choice between family or his partner. He reports thinking about this and as a result making his decision to move to be with family at this time. Time spent discussing smoking cessation with patient: 3 to 10 minutes Status at Discharge Functional status at discharge: independent ambulation Overall status at discharge: patient is back to baseline Time Spent with Patient Time attestation: Total time spent providing and/or coordinating discharge services: 35 Time spent: Greater than 30 minutes Discharge Plan Discharge Patient Disposition: Home, Self-Care Discharge Diagnosis: Schizoaffective Disorder, bipolar type PTSD Opiate Use Disorder, Maintenance therapy-suboxone Referrals: Suboxone: [facility] [Other] - 01/26/22 11:00 am Psych Prescriber: Chayo Zhang ([facility]) [Other] - 02/07/22 8:40 am (Telehealth ) Psych Prescriber: Chayo Zhang ([facility]) [Other] - 02/28/22 11:40 am (Telehealth ) Therapist: Odalys Carter ([facility]) [Other] - 01/31/22 10:00 am (*Call [facility] transport tomorrow to set up ride for appointment on Saturday to see her in the office) [facility] [Provider Group] - 02/02/22 9:00 am (Dr Gomez fax [phone]) Physician,Unknown J [Primary Care Provider] - 1 Week Discharge Medications: New multivitamin [Daily-Ty] Tablet 1 tab PO DAILY Qty: 30 0RF olanzapine 7.5 mg Tablet 15 mg PO BEDTIME Qty: 60 0RF cholecalciferol (vitamin D3) [Vitamin D3] 10 mcg (400 unit) Tablet 10 mcg PO DAILY Qty: 30 0RF buprenorphine-naloxone [Suboxone] 8-2 mg Film 1 film sublingual BID Qty: 0 0RF buprenorphine-naloxone [Suboxone] 4-1 mg Film 1 film sublingual DAILY@1300 Qty: 0 0RF prazosin 5 mg capsule 5 mg PO BEDTIME Qty: 30 0RF nicotine 21 mg/24 hr Patch 24 Hour 21 mg transdermal DAILY Qty: 30 0RF Continued cyanocobalamin (vitamin B-12) [Vitamin B-12] 100 mcg Tablet 100 mcg PO DAILY 30 Days Qty: 30 0RF folic acid 1 mg tablet 1 tab PO DAILY Qty: 30 0RF fluoxetine 20 mg Capsule 40 mg PO DAILY 30 Days Qty: 60 0RF Discontinued trazodone 50 mg tablet 1 tab PO BEDTIME PRN (Reason: insomnia) prazosin 1 mg capsule 4 cap PO BEDTIME olanzapine 10 mg tablet 1 tab PO BEDTIME olanzapine 2.5 mg tablet 1 tab PO BEDTIME Discharge Orders: Discharge Order (Routine); Ordered 01/25/22 Ordered By: Gabriela Breaux Activity on Discharge: As tolerated Stand Alone Forms: Patient Portal Discharge page, Community Support Care Plan Goals: Maintain mood and safe behaviors Take medications as directed Continue to work on sobriety Practice coping skills Health Concerns: Schizoaffective Disorder, Bipolar Type PTSD Opiate Use Disorder, Maintenance Therapy Plan of Treatment: Take medications as directed Attend follow up appointments Assessment: non-psychotic, non-suicidal Discharge Date/Time: 01/25/22 14:04
== END 2022-01-25 14:04 | disposition home or self-care (01) | DRG 750 ==
LOC: HO.ED 22:58 → HO.PM5 01-17 14:22
PROVIDERS: Admitting Provider Psychiatry & Neurology Psychiatry; Emergency Provider Emergency Medicine; Visit Provider Clinical Nurse Specialist Psychiatric/Mental Health, Adult
DX: F25.0 Schizoaffective disorder, bipolar type (principal); R45.851 Suicidal ideations; F11.20 Opioid dependence, uncomplicated; F17.210 Nicotine dependence, cigarettes, uncomplicated; F43.12 Post-traumatic stress disorder, chronic; Z20.822 Contact with and (suspected) exposure to COVID-19; Z71.6 Tobacco abuse counseling; Z79.899 Other long term (current) drug therapy
CPT/HCPCS: 36415; 71046; 80048; 80053; 80061; 80143; 80179; 80307; 81001; 82077; 82607; 82746; 83036; 83735; 84439; 84443; 85027; 87635; 93005; 99285

== ENCOUNTER 2022-01-31 00:16 | Inpatient (IN) | payer OTHER, MEDICAID, SELFPAY ==
--- NOTE | 2022-01-31 | ECG_ITS ---
Test Reason : cp Blood Pressure : / mmHG Vent. Rate : 061 BPM Atrial Rate : 061 BPM P-R Int : 178 ms QRS Dur : 088 ms QT Int : 412 ms P-R-T Axes : 052 060 044 degrees QTc Int : 414 ms Normal sinus rhythm Normal ECG When compared with ECG of 17-JAN-2022 09:36, No significant change was found Referred By: Kendra Mclaughlin Electronically Signed By:YOVANI PICKERING
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
--- NOTE | 2022-01-31 00:23 | ED.PSYCH ---
HPI - Psych General Chief Complaint: Psychiatric Symptoms <JOSE MARTIN Valle Last Filed: 01/31/22 00:54> Stated Complaint: crisis <JOSE MARTIN Valle Last Filed: 01/31/22 00:54> Time Seen by Provider: 01/31/22 08:13 <JOSE MARTIN Valle Last Filed: 01/31/22 00:54> Source: patient <JOSE MARTIN Valle Last Filed: 01/31/22 00:54> Mode of arrival: ambulatory <JOSE MARTIN Valle Last Filed: 01/31/22 00:54> Limitations: no limitations <Liv Singh NP - Last Filed: 01/31/22 00:54> History of Present Illness HPI Narrative: 56-year-old male presents for crisis evaluation. States that he feels suicidal and he is triggered by the of his cousin. He will not elaborate if he has a plan, but states that he is not right in the head. <Liv Singh NP - Last Filed: 01/31/22 00:54> MD complaint: suicidal ideation and feels depressed <JOSE MARTIN Valle Last Filed: 01/31/22 00:54> Duration: constant <JOSE MARTIN Valle Last Filed: 01/31/22 00:54> History of same: Yes <JOSE MARTIN Valle Last Filed: 01/31/22 00:54> Relieving factors: none <JOSE MARTIN Valle Last Filed: 01/31/22 00:54> Exacerbating factors: none <JOSE MARTIN Valle Last Filed: 01/31/22 00:54> Context: recent alcohol abuse, recent drug abuse and significant life stressor <JOSE MARTIN Valle Last Filed: 01/31/22 00:54> Associated psychiatric symptoms: depression and suicidal ideation <JOSE MARTIN Valle Last Filed: 01/31/22 00:54> Associated symptoms: denies other symptoms <JOSE MARTIN Valle Last Filed: 01/31/22 00:54> Treatments prior to arrival: none <JOSE MARTIN Valle Last Filed: 01/31/22 00:54> If self harm: admits thoughts of self harm <Liv Singh NP - Last Filed: 01/31/22 00:54> Related Data Home Medications: Previous Rx's Medication Instructions Recorded buprenorphine 4 mg-naloxone 1 mg 1 film sublingual DAILY@1300 #0 ea 01/25/22 sublingual film (Suboxone) buprenorphine 8 mg-naloxone 2 mg 1 film sublingual BID #0 ea 01/25/22 sublingual film (Suboxone) cholecalciferol (vitamin D3) 10 10 mcg PO DAILY #30 tabs 01/25/22 mcg (400 unit) tablet (Vitamin D3) cyanocobalamin (vitamin B-12) 100 100 mcg PO DAILY 30 days #30 tabs 01/25/22 mcg tablet (Vitamin B-12) fluoxetine 20 mg capsule 40 mg PO DAILY 30 days #60 caps 01/25/22 folic acid 1 mg tablet 1 tab PO DAILY #30 tabs 01/25/22 multivitamin (Daily-Ty) 1 tab PO DAILY #30 tabs 01/25/22 nicotine 21 mg/24 hr daily 21 mg transdermal DAILY #30 ea 01/25/22 transdermal patch olanzapine 7.5 mg tablet 15 mg PO BEDTIME #60 tabs 01/25/22 prazosin 5 mg capsule 5 mg PO BEDTIME #30 caps 01/25/22 <JOSE MARTIN Valle Last Filed: 01/31/22 00:54> Allergies/Adverse Reactions: Allergies Allergy/AdvReac Type Severity Reaction Status Date / Time No Known Allergies Allergy Verified 01/16/22 22:10 [No Known Allergies*] <JOSE MARTIN Valle Last Filed: 01/31/22 00:54> Review of Systems Review of Systems: Constitutional: No Fever, No Chills ENT/Mouth: No Ear Pain, No Nasal Congestion, No sore throat Eyes: No Eye Pain, No Swelling, No Redness Cardiovascular: No Chest Pain, No SOB Respiratory: No Cough, No Sputum, No Dyspnea Gastrointestinal: No Nausea, No Vomiting, No Diarrhea, No Hematochezia, No Melena Genitourinary: No Dysuria, No Urinary Frequency, No Hematuria Musculoskeletal: No Myalgias Skin: No Skin Lesions, No rash Neuro: No Weakness, No Numbness, No Paresthesias, No Dizziness, No Headache Psych: positive Anxiety, positive Depression, positive SI no HI, no auditory or visual hallucinations Heme/Lymph: No Lymphadenopathy Endocrine: No Polyuria, No Polydipsia <Liv Singh NP - Last Filed: 01/31/22 00:54> Yes all other systems are reviewed and are negative <Liv Singh NP - Last Filed: 01/31/22 00:54> [facility] Past Medical History Attestation statement: The following information was validated with the patient. <Liv Singh NP - Last Filed: 01/31/22 00:54> Source: old records reviewed <Liv Singh NP - Last Filed: 01/31/22 00:54> Medical History: Medical History Atypical bipolar disorder B12 deficiency Chronic post-traumatic stress disorder (PTSD) Chronic schizophrenia Cocaine use disorder Heroin use <Liv Singh NP - Last Filed: 01/31/22 00:54> Social History Social History: Social History Household Members: Spouse Housing: Apartment Housing Other:: pt plans on living with his sister after D/C Do you presently have visiting nurse or other home services: No Alcohol intake: current Alcohol intake frequency: a few times a week Patient Tobacco Use Status: Current someday Tobacco user Tobacco use type: Cigarette Cigarette Packs Per Day: 0.5 Cigarettes Per Day: 10.0 Years Smoked: 20+ e-Cigarette/Vaping Use: Never Used Second Hand Smoke Exposure: Yes Substance Use Type: Crack/Cocaine Advance Directives: No service: No Sexual orientation: Straight/Heterosexual <Liv Singh NP - Last Filed: 01/31/22 00:54> Physical Exam Vital Signs: Vital Signs: Last Vital Signs Temp 96.8 F 01/31/22 00:24 Pulse 95 01/31/22 00:24 Resp 16 01/31/22 00:24 BP 122/100 H 01/31/22 00:24 Pulse Ox 96 01/31/22 00:24 O2 Del Method 01/31/22 00:24 BMI result Body Mass Index 30.7 <Liv Singh NP - Last Filed: 01/31/22 00:54> Vital Signs: Last Vital Signs Temp 96.8 F 01/31/22 00:24 Pulse 95 01/31/22 00:24 Resp 16 01/31/22 00:24 BP 122/100 H 01/31/22 00:24 Pulse Ox 96 01/31/22 00:24 O2 Del Method 01/31/22 00:24 BMI result Body Mass Index 30.7 <MIRIAM Suarez - Last Filed: 01/31/22 09:43> Appearance: Alert. Oriented X3. Moderate emotional distress. Eyes: Pupils equal, round and reactive to light. ENT: Pharynx normal. Neck: Normal inspection. Neck supple. CVS: Normal heart rate and rhythm. Pulses normal. Respiratory: No respiratory distress. Breath sounds normal. Abdomen: Soft and nontender. Skin: Skin warm and dry. Normal skin color. Normal skin turgor. Extremities: No lower extremity edema. Gait well balanced well coordinated. Neuro: No motor deficit. No sensory deficit. Cranial nerves 2-12 intact. <Liv Singh NP - Last Filed: 01/31/22 00:54> Course Course Course Narrative: 56-year-old male presents for suicidal ideation. States that he is having a difficult time of his cousins test. States to be suicidal but does not have a plan. Admits using heroin and alcohol today. Has been watching his game on his phone during my entire assessment. Patient is compliant with care and has no physical complaints. Order for labs, and N consult. Patient states to be anxious, order for 2 mg of p.o. Ativan. Physician observation at this time. <Liv Singh NP - Last Filed: 01/31/22 00:54> Reevaluation(s) Reevaluation #1: Physician observation continued. Patient notably hypertensive early this morning, will repeat hand monitor. Labs reviewed. Pending evaluation by N <MIRIAM Suarez - Last Filed: 01/31/22 09:43> Time: 09:42 <MIRIAM Suarez - Last Filed: 01/31/22 09:43> MDM - Psych Differential Diagnosis Differential diagnosis: Likely acute psychosis, suicidal ideation, depression, drug-induced psychotic disorder, substance abuse and alcohol intoxication <Liv Singh NP - Last Filed: 01/31/22 00:54> Medical Records Attestation: I reviewed the patient's medical records. <Liv Singh NP - Last Filed: 01/31/22 00:54> Lab Data Attestation: I reviewed the patient's lab results. <Liv Singh NP - Last Filed: 01/31/22 00:54> Labs: Lab Results 01/31/22 01/31/22 01/31/22 Range/Units 00: 00:33 00:33 Urine Color YELLOW Urine Appearance CLEAR Urine pH 6.0 (5.0-8.0) Ur Specific [place] >= 1.030 H (1.005-1.025) Urine Protein NEG (NEG-TRACE) MG/DL Urine Glucose (UA) NEG (NEG) MG/DL Urine Ketones NEG (NEG) MG/DL Urine Blood TRACE (NEG) Urine Nitrite NEG (NEG) Ur Leukocyte Esterase NEG (NEG) Urine RBC 1-4 (0) /HPF Urine WBC 1-4 (0-4) /HPF Ur Squamous Epith Cells 1+ /LPF Urine Bacteria 1+ /LPF Urine Opiates Screen POSITIVE H (Not Detect) Urine Fentanyl Screen POSITIVE H (Not Detect) Ur Barbiturates Screen Not Detected (Not Detect) Ur Phencyclidine Scrn Not Detected (Not Detect) Ur Amphetamines Screen Not Detected (Not Detect) Urine Cocaine Screen POSITIVE H (Not Detect) U Marijuana (THC) Screen Not Detected (Not Detect) COVID-19 ([place]) Negative (Negative) COVID-19 Clin Com See Note <Liv Singh NP - Last Filed: 01/31/22 00:54> Lab Results 01/31/22 01/31/22 01/31/22 Range/Units 00: 00:33 00:33 Urine Color YELLOW Urine Appearance CLEAR Urine pH 6.0 (5.0-8.0) Ur Specific [place] >= 1.030 H (1.005-1.025) Urine Protein NEG (NEG-TRACE) MG/DL Urine Glucose (UA) NEG (NEG) MG/DL Urine Ketones NEG (NEG) MG/DL Urine Blood TRACE (NEG) Urine Nitrite NEG (NEG) Ur Leukocyte Esterase NEG (NEG) Urine RBC 1-4 (0) /HPF Urine WBC 1-4 (0-4) /HPF Ur Squamous Epith Cells 1+ /LPF Urine Bacteria 1+ /LPF Urine Opiates Screen POSITIVE H (Not Detect) Urine Fentanyl Screen POSITIVE H (Not Detect) Ur Barbiturates Screen Not Detected (Not Detect) Ur Phencyclidine Scrn Not Detected (Not Detect) Ur Amphetamines Screen Not Detected (Not Detect) Urine Cocaine Screen POSITIVE H (Not Detect) U Marijuana (THC) Screen Not Detected (Not Detect) COVID-19 ([place]) Negative (Negative) COVID-19 Clin Com See Note <MIRIAM Suarez - Last Filed: 01/31/22 09:43> Discharge Plan Discharge Clinical Impression: Depressive disorder, Suicidal ideation, Schizoaffective disorder, bipolar type, Opioid use disorder, moderate, in early remission, on maintenance therapy, dependence <Liv Singh NP - Last Filed: 01/31/22 00:54> Patient Disposition: Still a Patient <Liv Singh NP - Last Filed: 01/31/22 00:54> Prescriptions: No Action multivitamin [Daily-Ty] Tablet 1 tab PO DAILY Qty: 30 0RF olanzapine 7.5 mg Tablet 15 mg PO BEDTIME Qty: 60 0RF cholecalciferol (vitamin D3) [Vitamin D3] 10 mcg (400 unit) Tablet 10 mcg PO DAILY Qty: 30 0RF buprenorphine-naloxone [Suboxone] 8-2 mg Film 1 film sublingual BID Qty: 0 0RF buprenorphine-naloxone [Suboxone] 4-1 mg Film 1 film sublingual DAILY@1300 Qty: 0 0RF cyanocobalamin (vitamin B-12) [Vitamin B-12] 100 mcg Tablet 100 mcg PO DAILY 30 Days Qty: 30 0RF folic acid 1 mg tablet 1 tab PO DAILY Qty: 30 0RF fluoxetine 20 mg Capsule 40 mg PO DAILY 30 Days Qty: 60 0RF prazosin 5 mg capsule 5 mg PO BEDTIME Qty: 30 0RF nicotine 21 mg/24 hr Patch 24 Hour 21 mg transdermal DAILY Qty: 30 0RF <Liv Singh NP - Last Filed: 01/31/22 00:54>
[2022-01-31 00:24] VITALS: BP 122/100; PULSE 95; RESP 16; TEMP 36; O2SAT 96; BMI 30.7
[2022-01-31] MEDS: LORazepam 1 MG TABLET 2 MG PO (00:41)
[2022-01-31 00:42] LABS: Appearance Urine CLEAR; Color Urine YELLOW; Glucose Urine UA NEG (NEG); Leukocyte Esterase Urine NEG (NEG); Nitrite Urine NEG (NEG); Specific Gravity - Urine >= 1.030 (1.005-1.025); Urine Blood TRACE (NEG); Urine Ketones NEG (NEG); Urine Protein NEG (NEG-TRACE)
[2022-01-31 00:46] LABS: Bacteria Urine 1+ /LPF; Squamous Epithelial Cell Urine 1+ /LPF
[2022-01-31 00:53] LABS: Fentanyl, urine POSITIVE (Not Detect)
[2022-01-31 00:54] LABS: Amphetamine Screen Urine Not Detected (Not Detect); Barbiturates, Urine Not Detected (Not Detect); Cannabinoid Screen Urine Not Detected (Not Detect); Cocaine Screen Urine POSITIVE (Not Detect); Opiate Screen Urine POSITIVE (Not Detect); Phencyclidine Screen Urine Not Detected (Not Detect)
[2022-01-31 00:58] LABS: COVID-19 Test Negative (Negative)
--- NOTE | 2022-01-31 06:36 | PC.NURSE ---
Patient in bed appears sleeping at this time, struggle to fall sleep due to polysubstance influence, [facility] referral completed/confirmed/pending ETA, med rec completed/confirmed/pending ETA, VSS, behavior non concerning, will continue to monitor.
--- NOTE | 2022-01-31 08:09 | PC.NURSE ---
patient appears to remain asleep at present respirations are even and unlabored patient appears in no distress
[2022-01-31 09:48] VITALS: BP 109/53; PULSE 71; RESP 18; TEMP 36.7; O2SAT 97
[2022-01-31] MEDS: Multivitamin TABLET 1 TAB PO (12:26)
[2022-01-31] MEDS: Cholecalciferol (Vitamin D3) 10 MCG TABLET PO (12:26)
[2022-01-31] MEDS: Folic Acid 1 MG TABLET PO (12:26)
[2022-01-31] MEDS: FLUoxetine HCl 20 MG CAPSULE 40 MG PO (12:27)
[2022-01-31] MEDS: Cyanocobalamin (Vitamin B-12) 100 MCG TABLET PO (12:28)
[2022-01-31] MEDS: Nicotine 21 MG PATCH.TD24 TRANSDERMA (12:29)
[2022-01-31] MEDS: Buprenorphine/Naloxone 4/1 mg FILM 1 FILM SUBLINGUAL (12:29)
[2022-01-31 16:57] LABS: MANUAL DIFF FLAG NO
[2022-01-31 17:00] LABS: Basophils Percent Auto 0.8 % (0-2); Eosinophils Absolute Auto 0.2 X10*3/uL (0.0-0.4); Hematocrit 39.4 % (42.0-52.0); Hemoglobin 13.3 g/dl (14.0-18.0); Imm Gran Abs Auto 0.01 X10*3/uL (0.00-0.03); Imm Gran Pct Auto 0.2 % (0.0-0.4); Lymphocytes Percent Auto 41.7 % (20-40); Mean Corpuscular HGB Conc 33.8 g/dl (31.0-36.0); Mean Corpuscular Hemoglobin 30.5 pg (27.0-33.0); Mean Corpuscular Volume 90.4 fL (80.0-98.0); Mean Platelet Volume 10.3 fL (9.4-12.4); Monocytes Absolute Auto 0.5 X10*3/uL (0.1-1.2); Monocytes Percent Auto 10.6 % (2-11); Neutrophils Absolute Auto 2.1 x10*3/uL (2.0-8.3); Neutrophils Percent Auto 42.7 % (45-73); Platelet Count 226 X10*3/uL (160-400); Red Blood Count 4.36 X10*6/uL (4.60-5.80); Red Cell Distribution Width 13.1 % (11.0-16.0); White Blood Count 4.8 X10*3/uL (4.8-10.8)
[2022-01-31 17:19] LABS: Alanine Aminotransferase 29 U/L (0-40); Albumin Level 3.9 g/dL (3.5-5.0); Alkaline Phosphatase 74 U/L (39-117); Anion Gap 10 (12-20); Aspartate Amino Transferase 22 U/L (5-37); Bilirubin Total 0.6 mg/dL (0.0-1.0); Blood Urea Nitrogen 24 mg/dL (9-16); Calcium 9.4 mg/dL (8.4-10.2); Carbon Dioxide 30 mmol/L (22-29); Chloride 107 mmol/L (96-108); Creatinine Clr Calc Pharmacy 85.9; Estimated Glomerular Filt Rate > 60; Glucose Random 122 mg/dL (60-115); Potassium 4.4 mmol/L (3.3-5.1); Sodium 143 mmol/L (135-145); Total Protein 7.1 g/dL (6.5-8.0)
[2022-01-31 19:00] VITALS: BP 115/79; PULSE 60; RESP 17; TEMP 36.6; O2SAT 96
[2022-01-31] MEDS: Buprenorphine/Naloxone 8/2 mg FILM 1 FILM SUBLINGUAL (21:15)
[2022-01-31] MEDS: OLANZapine 7.5 MG TABLET 15 MG PO (21:15)
[2022-01-31] MEDS: Prazosin HCL 5 MG CAPSULE PO (21:15)
[2022-01-31 23:51] VITALS: BP 118/68; PULSE 60; RESP 16; TEMP 36; O2SAT 95
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
[2022-02-01 06:39] VITALS: BP 129/70; PULSE 51; RESP 16; TEMP 35.9; O2SAT 99
[2022-02-01] MEDS: Buprenorphine/Naloxone 8/2 mg FILM 1 FILM SUBLINGUAL ×2 (07:59→20:01)
[2022-02-01] MEDS: Nicotine 21 MG PATCH.TD24 TRANSDERMA (07:59)
[2022-02-01] MEDS: FLUoxetine HCl 20 MG CAPSULE 40 MG PO (08:00)
[2022-02-01] MEDS: Cholecalciferol (Vitamin D3) 10 MCG TABLET PO (08:00)
[2022-02-01] MEDS: Cyanocobalamin (Vitamin B-12) 100 MCG TABLET PO (08:00)
[2022-02-01] MEDS: Folic Acid 1 MG TABLET PO (08:00)
[2022-02-01] MEDS: Multivitamin TABLET 1 TAB PO (08:00)
[2022-02-01 10:46] LABS: Benzodiazepines Screen Urine NOT DETECTED (Not Detect)
[2022-02-01] MEDS: Buprenorphine/Naloxone 4/1 mg FILM 1 FILM SUBLINGUAL (14:02)
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
[2022-02-01] MEDS: Ferrous Sulfate 324 MG TABLET.DR PO (18:04)
[2022-02-01 23:55] VITALS: BP 123/68; PULSE 80; TEMP 36.7
[2022-02-02] MEDS: OLANZapine 7.5 MG TABLET 15 MG PO (00:22)
[2022-02-02] MEDS: Prazosin HCL 5 MG CAPSULE PO ×2 (00:23→21:29)
[2022-02-02 06:00] VITALS: BP 117/82; PULSE 78; RESP 18; TEMP 36.6; O2SAT 98
[2022-02-02] MEDS: Ferrous Sulfate 324 MG TABLET.DR PO (08:33)
[2022-02-02] MEDS: Folic Acid 1 MG TABLET PO (08:33)
[2022-02-02] MEDS: Cyanocobalamin (Vitamin B-12) 100 MCG TABLET PO (08:33)
[2022-02-02] MEDS: Buprenorphine/Naloxone 8/2 mg FILM 1 FILM SUBLINGUAL ×2 (08:33→21:29)
[2022-02-02] MEDS: FLUoxetine HCl 20 MG CAPSULE 40 MG PO (08:33)
[2022-02-02] MEDS: Multivitamin TABLET 1 TAB PO (08:33)
[2022-02-02] MEDS: Cholecalciferol (Vitamin D3) 10 MCG TABLET PO (08:33)
[2022-02-02] MEDS: Nicotine 21 MG PATCH.TD24 TRANSDERMA (08:41)
[2022-02-02 09:00] LABS: Thyroid Stimulating Hormone 0.93 uIU/mL (0.32-4.0)
[2022-02-02 09:04] LABS: Estimated Average Glucose 105 mg/dL; Hemoglobin A1c % 5.3 %
[2022-02-02 09:06] LABS: Alanine Aminotransferase 26 U/L (0-40); Albumin Level 3.8 g/dL (3.5-5.0); Alkaline Phosphatase 71 U/L (39-117); Anion Gap 11 (12-20); Aspartate Amino Transferase 18 U/L (5-37); Bilirubin Total 0.3 mg/dL (0.0-1.0); Blood Urea Nitrogen 21 mg/dL (9-16); Calcium 9.3 mg/dL (8.4-10.2); Carbon Dioxide 31 mmol/L (22-29); Chloride 105 mmol/L (96-108); Cholesterol 155 mg/dL; Creatinine Clr Calc Pharmacy 87.5; Estimated Glomerular Filt Rate > 60; Glucose Fasting 95 mg/dL (60-99); HDL Cholesterol 42 mg/dL; LDL Cholesterol Calculated 82 mg/dl; Potassium 4.7 mmol/L (3.3-5.1); Sodium 142 mmol/L (135-145); Triglycerides 156 mg/dL
[2022-02-02] MEDS: Buprenorphine/Naloxone 4/1 mg FILM 1 FILM SUBLINGUAL (14:32)
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
[2022-02-02] MEDS: Lidocaine 4 % Patch ADH..PATCH 1 PATCH TRANSDERMA (16:06)
[2022-02-02] MEDS: diphenhydrAMINE HCL 25 MG TABLET PO ×2 (16:13→21:31)
[2022-02-02] MEDS: Clotrimazole 1 % Cream 15 GM TUBE 1 APPL TOPICAL (17:15)
[2022-02-02 18:32] VITALS: BP 130/68; PULSE 65; RESP 18; TEMP 36.7; O2SAT 97
[2022-02-02 21:26] VITALS: BP 128/64; PULSE 65
[2022-02-02] MEDS: OLANZapine 10 MG TABLET PO (21:29)
[2022-02-03 06:00] VITALS: BP 119/65; PULSE 63; TEMP 36.6; O2SAT 96
[2022-02-03] MEDS: Nicotine 21 MG PATCH.TD24 TRANSDERMA (09:09)
[2022-02-03] MEDS: Lidocaine 4 % Patch ADH..PATCH 1 PATCH TRANSDERMA (09:09)
[2022-02-03] MEDS: Buprenorphine/Naloxone 8/2 mg FILM 1 FILM SUBLINGUAL ×2 (09:09→19:57)
[2022-02-03] MEDS: Folic Acid 1 MG TABLET PO (09:10)
[2022-02-03] MEDS: Multivitamin TABLET 1 TAB PO (09:10)
[2022-02-03] MEDS: Ferrous Sulfate 324 MG TABLET.DR PO (09:10)
[2022-02-03] MEDS: Cyanocobalamin (Vitamin B-12) 100 MCG TABLET PO (09:10)
[2022-02-03] MEDS: Cholecalciferol (Vitamin D3) 10 MCG TABLET PO (09:10)
[2022-02-03] MEDS: FLUoxetine HCl 20 MG CAPSULE 40 MG PO (09:10)
[2022-02-03] MEDS: Clotrimazole 1 % Cream 15 GM TUBE 1 APPL TOPICAL ×2 (09:10→19:58)
[2022-02-03] MEDS: diphenhydrAMINE HCL 25 MG TABLET PO ×2 (09:15→22:25)
[2022-02-03] MEDS: Buprenorphine/Naloxone 4/1 mg FILM 1 FILM SUBLINGUAL (13:23)
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
[2022-02-03 18:00] VITALS: BP 124/81; PULSE 82; RESP 16; TEMP 36.6; O2SAT 98
[2022-02-03] MEDS: Prazosin HCL 5 MG CAPSULE PO (19:56)
[2022-02-03] MEDS: OLANZapine 10 MG TABLET PO (19:57)
[2022-02-04 06:42] VITALS: BP 137/78; PULSE 66; RESP 14; TEMP 36.3; O2SAT 95
[2022-02-04] MEDS: Lidocaine 4 % Patch ADH..PATCH 1 PATCH TRANSDERMA (08:13)
[2022-02-04] MEDS: Nicotine 21 MG PATCH.TD24 TRANSDERMA (08:13)
[2022-02-04] MEDS: Clotrimazole 1 % Cream 15 GM TUBE 1 APPL TOPICAL ×2 (08:13→21:21)
[2022-02-04] MEDS: Multivitamin TABLET 1 TAB PO (08:13)
[2022-02-04] MEDS: Buprenorphine/Naloxone 8/2 mg FILM 1 FILM SUBLINGUAL ×2 (08:13→21:00)
[2022-02-04] MEDS: FLUoxetine HCl 20 MG CAPSULE 40 MG PO (08:13)
[2022-02-04] MEDS: Ferrous Sulfate 324 MG TABLET.DR PO (08:14)
[2022-02-04] MEDS: Cyanocobalamin (Vitamin B-12) 100 MCG TABLET PO (08:14)
[2022-02-04] MEDS: Folic Acid 1 MG TABLET PO (08:14)
[2022-02-04] MEDS: Cholecalciferol (Vitamin D3) 10 MCG TABLET PO (08:14)
[2022-02-04] MEDS: diphenhydrAMINE HCL 25 MG TABLET PO ×2 (08:14→21:21)
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
[2022-02-04] MEDS: Buprenorphine/Naloxone 4/1 mg FILM 1 FILM SUBLINGUAL (14:09)
[2022-02-04 21:10] VITALS: BP 121/82; PULSE 74; TEMP 36.3; O2SAT 97
[2022-02-04] MEDS: OLANZapine 10 MG TABLET PO (21:21)
[2022-02-04] MEDS: Prazosin HCL 5 MG CAPSULE PO (21:21)
[2022-02-05 06:00] VITALS: BP 111/62; PULSE 61; TEMP 36.5; O2SAT 96
[2022-02-05] MEDS: Buprenorphine/Naloxone 8/2 mg FILM 1 FILM SUBLINGUAL ×2 (08:14→21:14)
[2022-02-05] MEDS: Multivitamin TABLET 1 TAB PO (08:14)
[2022-02-05] MEDS: Nicotine 21 MG PATCH.TD24 TRANSDERMA (08:14)
[2022-02-05] MEDS: Cyanocobalamin (Vitamin B-12) 100 MCG TABLET PO (08:14)
[2022-02-05] MEDS: Cholecalciferol (Vitamin D3) 10 MCG TABLET PO (08:14)
[2022-02-05] MEDS: Folic Acid 1 MG TABLET PO (08:14)
[2022-02-05] MEDS: FLUoxetine HCl 20 MG CAPSULE 40 MG PO (08:14)
[2022-02-05] MEDS: Ferrous Sulfate 324 MG TABLET.DR PO (08:14)
[2022-02-05] MEDS: Lidocaine 4 % Patch ADH..PATCH 1 PATCH TRANSDERMA (08:15)
[2022-02-05] MEDS: Clotrimazole 1 % Cream 15 GM TUBE 1 APPL TOPICAL (08:41)
[2022-02-05] MEDS: Buprenorphine/Naloxone 4/1 mg FILM 1 FILM SUBLINGUAL (12:25)
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
[2022-02-05 18:00] VITALS: BP 111/66; PULSE 72; RESP 14; TEMP 36.5
[2022-02-05] MEDS: OLANZapine 10 MG TABLET PO (21:47)
[2022-02-05] MEDS: diphenhydrAMINE HCL 25 MG TABLET PO (21:47)
[2022-02-05] MEDS: Prazosin HCL 5 MG CAPSULE PO (21:47)
[2022-02-06 06:00] VITALS: BP 118/64; PULSE 76; RESP 16; TEMP 36.4; O2SAT 97
[2022-02-06 08:32] LABS: Iron 96 mcg/dL (45-160); Percent Iron Saturation 27 % (15-50); Total Iron Binding Capacity 362 mcg/dL (228-428); Unsaturated Iron Binding 266 ug/dL
[2022-02-06] MEDS: Lidocaine 4 % Patch ADH..PATCH 1 PATCH TRANSDERMA (08:41)
[2022-02-06] MEDS: Clotrimazole 1 % Cream 15 GM TUBE 1 APPL TOPICAL ×2 (08:41→21:10)
[2022-02-06] MEDS: Nicotine 21 MG PATCH.TD24 TRANSDERMA (08:41)
[2022-02-06] MEDS: Folic Acid 1 MG TABLET PO (08:42)
[2022-02-06] MEDS: Ferrous Sulfate 324 MG TABLET.DR PO (08:42)
[2022-02-06] MEDS: Buprenorphine/Naloxone 8/2 mg FILM 1 FILM SUBLINGUAL ×2 (08:42→20:30)
[2022-02-06] MEDS: FLUoxetine HCl 20 MG CAPSULE 40 MG PO (08:42)
[2022-02-06] MEDS: Cyanocobalamin (Vitamin B-12) 100 MCG TABLET PO (08:42)
[2022-02-06] MEDS: Multivitamin TABLET 1 TAB PO (08:42)
[2022-02-06] MEDS: Cholecalciferol (Vitamin D3) 10 MCG TABLET PO (08:42)
[2022-02-06] MEDS: diphenhydrAMINE HCL 25 MG TABLET PO ×2 (08:54→21:07)
[2022-02-06] MEDS: Buprenorphine/Naloxone 4/1 mg FILM 1 FILM SUBLINGUAL (13:59)
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
[2022-02-06 18:00] VITALS: BP 109/66; PULSE 63; TEMP 36.7; O2SAT 98
[2022-02-06] MEDS: Prazosin HCL 5 MG CAPSULE PO (21:06)
[2022-02-06] MEDS: OLANZapine 10 MG TABLET PO (21:06)
[2022-02-07 06:00] VITALS: BP 103/69; PULSE 66; TEMP 36.1; O2SAT 95
[2022-02-07] MEDS: Clotrimazole 1 % Cream 15 GM TUBE 1 APPL TOPICAL (09:02)
[2022-02-07] MEDS: Nicotine 21 MG PATCH.TD24 TRANSDERMA (09:02)
[2022-02-07] MEDS: Cholecalciferol (Vitamin D3) 10 MCG TABLET PO (09:03)
[2022-02-07] MEDS: Lidocaine 4 % Patch ADH..PATCH 1 PATCH TRANSDERMA (09:03)
[2022-02-07] MEDS: Ferrous Sulfate 324 MG TABLET.DR PO (09:04)
[2022-02-07] MEDS: FLUoxetine HCl 20 MG CAPSULE 40 MG PO (09:04)
[2022-02-07] MEDS: diphenhydrAMINE HCL 25 MG TABLET PO (09:04)
[2022-02-07] MEDS: Multivitamin TABLET 1 TAB PO (09:05)
[2022-02-07] MEDS: Folic Acid 1 MG TABLET PO (09:05)
[2022-02-07] MEDS: Cyanocobalamin (Vitamin B-12) 100 MCG TABLET PO (09:06)
[2022-02-07] MEDS: Buprenorphine/Naloxone 8/2 mg FILM 1 FILM SUBLINGUAL (09:06)
[2022-02-07] MEDS: Buprenorphine/Naloxone 4/1 mg FILM 1 FILM SUBLINGUAL (13:34)
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
== END 2022-02-07 14:14 | disposition home or self-care (01) | DRG 750 ==
LOC: HO.ED 01:05 → HO.PM5 02-01 00:09
PROVIDERS: Nurse Practitioner Family; Physician Assistant; Social Worker; Admitting Provider Psychiatry & Neurology Psychiatry; Emergency Provider Emergency Medicine; Visit Provider Clinical Nurse Specialist Psychiatric/Mental Health, Adult
DX: F25.0 Schizoaffective disorder, bipolar type (principal); R45.851 Suicidal ideations; F11.20 Opioid dependence, uncomplicated; F17.210 Nicotine dependence, cigarettes, uncomplicated; B35.6 Tinea cruris; M17.11 Unilateral primary osteoarthritis, right knee; F43.12 Post-traumatic stress disorder, chronic; Z71.6 Tobacco abuse counseling; Z62.810 Personal history of physical and sexual abuse in childhood; Z20.822 Contact with and (suspected) exposure to COVID-19; Z79.899 Other long term (current) drug therapy
CPT/HCPCS: 36415; 73564; 80053; 80061; 80307; 81001; 83036; 83540; 84443; 85025; 87635; 93005; 99285; Q0163

== ENCOUNTER 2022-03-04 04:06 | Inpatient (IN) | payer MEDICAID, OTHER, SELFPAY ==
--- NOTE | 2022-03-04 04:10 | ED_ITS ---
HPI - Psych General Stated Complaint: SI Time Seen by Provider: 03/04/22 04:09 Source: patient and old records reviewed Mode of arrival: ambulatory Limitations: no limitations History of Present Illness MD complaint: suicidal ideation and feels depressed Onset (ago): day(s) (2) Duration: constant History of same: Yes Relieving factors: none Exacerbating factors: drug use Context: recent drug abuse Associated psychiatric symptoms: depression and suicidal ideation Associated symptoms: denies other symptoms Treatments prior to arrival: none Related Data Home Medications Medication Instructions Recorded Confirmed olanzapine 7.5 mg tablet 2 tab PO BEDTIME 03/04/22 03/04/22 Previous Rx's Medication Instructions Recorded buprenorphine 4 mg-naloxone 1 mg 1 film sublingual DAILY@1300 #7 ea 02/06/22 sublingual film (Suboxone) buprenorphine 8 mg-naloxone 2 mg 1 film sublingual BID #14 ea 02/06/22 sublingual film (Suboxone) capsaicin 0.025 % topical cream 1 appl topical TID PRN knee pain 02/06/22 #25 grams cholecalciferol (vitamin D3) 10 10 mcg PO DAILY #30 tabs 02/06/22 mcg (400 unit) tablet (Vitamin D3) cholecalciferol (vitamin D3) 10 10 mcg PO DAILY #30 tabs 02/06/22 mcg (400 unit) tablet (Vitamin D3) clotrimazole 1 % topical cream 1 appl topical BID #1 applicator 02/06/22 cyanocobalamin (vitamin B-12) 100 100 mcg PO DAILY 30 days #30 tabs 02/06/22 mcg tablet (Vitamin B-12) ferrous sulfate 324 mg (65 mg 324 mg PO DAILY #30 tabs 02/06/22 iron) tablet,delayed release fluoxetine 20 mg capsule 40 mg PO DAILY 30 days #60 caps 02/06/22 folic acid 1 mg tablet 1 tab PO DAILY #30 tabs 02/06/22 lidocaine 4 % topical patch 1 patch transdermal DAILY #30 ea 02/06/22 (Lidocaine Pain Relief) multivitamin (Daily-Ty tablet) 1 tab PO DAILY #30 tabs 02/06/22 nicotine 21 mg/24 hr daily 21 mg transdermal DAILY #30 ea 02/06/22 transdermal patch olanzapine 10 mg tablet 10 mg PO BEDTIME #30 tabs 02/06/22 prazosin 5 mg capsule 5 mg PO BEDTIME #30 caps 02/06/22 trazodone 50 mg tablet 50 mg PO BEDTIME PRN Insomnia #30 02/06/22 tabs Allergies Allergy/AdvReac Type Severity Reaction Status Date / Time No Known Allergies Allergy Verified 01/16/22 22:10 [No Known Allergies*] Review of Systems Review of Systems: Constitutional : No Fever, No Chills ENT/Mouth : No Ear Pain, No Nasal Congestion, No sore throat Eyes: No Eye Pain, No Swelling, No Redness Cardiovascular : No Chest Pain, No SOB Respiratory : No Cough, No Sputum, No Dyspnea Gastrointestinal : No Nausea, No Vomiting, No Diarrhea, No Hematochezia, No Melena Genitourinary : No Dysuria, No Urinary Frequency, No Hematuria Musculoskeletal : No Myalgias Skin : No Skin Lesions, No rash Neuro : No Weakness, No Numbness, No Paresthesias, No Dizziness, No Headache Psych : positive Anxiety, positive Depression, positive SI no HI Heme/Lymph: No Lymphadenopathy Endocrine : No Polyuria, No Polydipsia All other systems reviewed and are negative [facility] Past Medical History Attestation statement: The following information was validated with the patient. Source: old records reviewed Medical History Atypical bipolar disorder B12 deficiency Chronic post-traumatic stress disorder (PTSD) Chronic schizophrenia Cocaine use disorder Depressive disorder Heroin use Opioid use disorder, moderate, in early remission, on maintenance therapy, dependence Social History Social History Household Members: Spouse Household Members Other:: plans to move in with sister after discharge Housing: Apartment Housing Other:: pt plans on living with his sister after D/C Do you presently have visiting nurse or other home services: No Alcohol intake: current Alcohol intake frequency: a few times a week Patient Tobacco Use Status: Current everyday Tobacco user Tobacco use type: Cigarette Cigarette Packs Per Day: 0.5 Cigarettes Per Day: 10.0 Years Smoked: 20 e-Cigarette/Vaping Use: Never Used Second Hand Smoke Exposure: Yes Substance Use Type: Crack/Cocaine, Heroin and Opiates service: No Sexual orientation: Straight/Heterosexual Physical Exam Vital Signs: Appearance: Alert. Oriented X3. No acute distress. appears depressed Eyes: Pupils equal, round and reactive to light. ENT: Pharynx normal. Neck: Normal inspection. Neck supple. CVS: Normal heart rate and rhythm. Pulses normal. Respiratory: No respiratory distress. Breath sounds normal. Abdomen: Soft and nontender. Skin: Skin warm and dry. Normal skin color. Extremities: No lower extremity edema. Neuro: Oriented X 3. No motor deficit. No sensory deficit. CN2-12 intact Course Course Course Narrative: Physician observation started at 422am Patient placed in physician observation because the patient needed more time for [facility]N to assess the need for psych admission. At the time observation was started the patient's vitals were stable, patient is alert and oriented but slightly anxious, Neuro: nonfocal, CV RRR, Lungs clear MDM - Psych MDM Narrative Medical decision making narrative: 56 yo male with hx of schizoaffective disorder, substance abuse comes in with depression/SI and substance abuse - at this time labs and N consult ordered Discharge Plan Discharge Clinical Impression: Active substance abuse, Depression Patient Disposition: Still a Patient Prescriptions: No Action lidocaine [Lidocaine Pain Relief] 4 % Adhesive Patch,Medicated 1 patch transdermal DAILY Qty: 30 0RF Protocol: Apply to: Apply to: Right Knee trazodone 50 mg Tablet 50 mg PO BEDTIME PRN (Reason: Insomnia) Qty: 30 0RF olanzapine 10 mg Tablet 10 mg PO BEDTIME Qty: 30 0RF capsaicin 0.025 % Cream 1 appl topical TID PRN (Reason: knee pain) Qty: 25 0RF Protocol: Apply to: Apply to: R knee clotrimazole 1 % Cream 1 appl topical BID Qty: 1 0RF Protocol: Apply to: Apply to: Groin cholecalciferol (vitamin D3) [Vitamin D3] 10 mcg (400 unit) Tablet 10 mcg PO DAILY Qty: 30 0RF ferrous sulfate 324 mg (65 mg iron) Tablet,Delayed Release (Dr/Ec) 324 mg PO DAILY Qty: 30 0RF multivitamin [Daily-Ty] Tablet 1 tab PO DAILY Qty: 30 0RF cyanocobalamin (vitamin B-12) [Vitamin B-12] 100 mcg Tablet 100 mcg PO DAILY 30 Days Qty: 30 0RF prazosin 5 mg capsule 5 mg PO BEDTIME Qty: 30 0RF nicotine 21 mg/24 hr Patch 24 Hour 21 mg transdermal DAILY Qty: 30 0RF folic acid 1 mg tablet 1 tab PO DAILY Qty: 30 0RF fluoxetine 20 mg Capsule 40 mg PO DAILY 30 Days Qty: 60 0RF cholecalciferol (vitamin D3) [Vitamin D3] 10 mcg (400 unit) Tablet 10 mcg PO DAILY Qty: 30 0RF naloxone [Narcan] 4 mg/actuation spray,non-aerosol 4 mg intranasal Q2M PRN (Reason: opioid overdose) Qty: 2 0RF Rx Instructions: spray 1 dose into ONE nostril; alternate nostrils w each dose until help arrives buprenorphine-naloxone [Suboxone] 8-2 mg Film 1 film sublingual BID Qty: 14 0RF buprenorphine-naloxone [Suboxone] 4-1 mg Film 1 film sublingual DAILY@1300 Qty: 7 0RF
[2022-03-04 04:12] VITALS: BP 135/84; PULSE 90; RESP 16; TEMP 36.4; O2SAT 93; BMI 29.2
[2022-03-04 04:33] LABS: MANUAL DIFF FLAG NO
[2022-03-04 04:35] LABS: Basophils Percent Auto 0.6 % (0-2); Eosinophils Absolute Auto 0.2 X10*3/uL (0.0-0.4); Eosinophils Percent Auto 2.5 % (0-4); Hematocrit 41.4 % (42.0-52.0); Hemoglobin 14.1 g/dl (14.0-18.0); Lymphocytes Absolute Auto 1.9 X10*3/uL (1.2-4.9); Lymphocytes Percent Auto 30.1 % (20-40); Mean Corpuscular HGB Conc 34.1 g/dl (31.0-36.0); Mean Corpuscular Hemoglobin 29.5 pg (27.0-33.0); Mean Corpuscular Volume 86.6 fL (80.0-98.0); Mean Platelet Volume 10.1 fL (9.4-12.4); Monocytes Absolute Auto 0.8 X10*3/uL (0.1-1.2); Monocytes Percent Auto 13.3 % (2-11); Neutrophils Absolute Auto 3.4 x10*3/uL (2.0-8.3); Neutrophils Percent Auto 53.5 % (45-73); Platelet Count 210 X10*3/uL (160-400); Red Blood Count 4.78 X10*6/uL (4.60-5.80); Red Cell Distribution Width 12.4 % (11.0-16.0); White Blood Count 6.3 X10*3/uL (4.8-10.8)
[2022-03-04 04:51] LABS: COVID-19 Test Negative (Negative)
[2022-03-04 04:51] LABS: Alanine Aminotransferase 13 U/L (0-40); Albumin Level 4.3 g/dL (3.5-5.0); Alkaline Phosphatase 77 U/L (39-117); Anion Gap 15 (12-20); Aspartate Amino Transferase 20 U/L (5-37); Bilirubin Direct 0.5 mg/dL (0.0-0.5); Blood Urea Nitrogen 19 mg/dL (9-16); Calcium 9.3 mg/dL (8.4-10.2); Carbon Dioxide 24 mmol/L (22-29); Chloride 104 mmol/L (96-108); Creatinine Clr Calc Pharmacy 76.1; Estimated Glomerular Filt Rate > 60; Ethanol < 10 mg/dL; Glucose Random 95 mg/dL (60-115); Potassium 3.5 mmol/L (3.3-5.1); Sodium 139 mmol/L (135-145); Total Protein 7.6 g/dL (6.5-8.0)
--- NOTE | 2022-03-04 06:28 | PC.NURSE ---
Patient slept through the night, no distress observed/reported, med rec completed/MAR updated, behavior non concerning, BHN referral completed/confirmed/pending ETA, VSS, will continue to monitor.
--- NOTE | 2022-03-04 07:14 | PC.NURSE ---
patient appears to remain asleep at present respirations are even and unlabored patient appears in no distress.
--- NOTE | 2022-03-04 09:00 | PC.NURSE ---
patient being screened fo risk by Eve
[2022-03-04 19:00] VITALS: BP 118/65; PULSE 60; RESP 16; TEMP 36.1; O2SAT 96
[2022-03-04] MEDS: traZODone HCL 50 MG TABLET PO (20:42)
[2022-03-04] MEDS: Prazosin HCL 5 MG CAPSULE PO (20:42)
[2022-03-04] MEDS: OLANZapine 7.5 MG TABLET 15 MG PO (20:42)
[2022-03-04] MEDS: Buprenorphine/Naloxone 4/1 mg FILM 1 FILM SUBLINGUAL (20:51)
[2022-03-04 21:18] LABS: Amphetamine Screen Urine Not Detected (Not Detect); Barbiturates, Urine Not Detected (Not Detect); Benzodiazepines Screen Urine Not Detected (Not Detect); Cannabinoid Screen Urine Not Detected (Not Detect); Cocaine Screen Urine POSITIVE (Not Detect); Fentanyl, urine POSITIVE (Not Detect); Opiate Screen Urine POSITIVE (Not Detect); Phencyclidine Screen Urine Not Detected (Not Detect)
--- NOTE | 2022-03-05 | ECG_ITS ---
Test Reason : MED CLEARANCE Blood Pressure : / mmHG Vent. Rate : 058 BPM Atrial Rate : 058 BPM P-R Int : 182 ms QRS Dur : 098 ms QT Int : 408 ms P-R-T Axes : 065 065 044 degrees QTc Int : 400 ms Sinus bradycardia Otherwise normal ECG When compared with ECG of 31-JAN-2022 13:56, No significant change was found Referred By: Jelly Preciado Electronically Signed By:MADELINE GARCIA MD
--- NOTE | 2022-03-05 05:40 | PC.NURSE ---
Patient slept through the night, no distress observed/reported, medication compliant, patient provided urine sample for UTOX, disposition per [facility] is section 12 inpatient bed search, VSS, medication compliant, behavior non concerning, will continue to monitor.
[2022-03-05] MEDS: Buprenorphine/Naloxone 8/2 mg FILM 2 FILM SUBLINGUAL (10:30)
[2022-03-05] MEDS: Cyanocobalamin (Vitamin B-12) 100 MCG TABLET PO (10:30)
[2022-03-05] MEDS: Ferrous Sulfate 324 MG TABLET.DR PO (10:31)
[2022-03-05] MEDS: Multivitamin TABLET 1 TAB PO (10:31)
[2022-03-05] MEDS: Nicotine 21 MG PATCH.TD24 TRANSDERMA (10:32)
[2022-03-05] MEDS: Folic Acid 1 MG TABLET PO (10:32)
[2022-03-05] MEDS: FLUoxetine HCl 20 MG CAPSULE 40 MG PO (10:32)
--- NOTE | 2022-03-05 10:42 | PC.NURSE ---
PHARMACHY CALLED FOR MISSING MEDICATIONS, PT IS CALM AND COOPERATIVE AT THIS TIME
--- NOTE | 2022-03-05 12:51 | PC.NURSE ---
Late entry note, pt seen on Friday 03/02 for individual OT intervention. Pt was alert, Ox4, at time of intervention presenting as depressed, irritated, and with a flat affect. Pt received coloring pages, crayons, and a stress ball in his room as a means of structuring his time and reducing agitation while he waits in the POD. Pt was pleasant and social with this sheet writer throughout the intervention.
[2022-03-05] MEDS: Buprenorphine/Naloxone 4/1 mg FILM 1 FILM SUBLINGUAL (13:33)
[2022-03-05] MEDS: Cholecalciferol (Vitamin D3) 10 MCG TABLET PO (13:33)
[2022-03-05 15:53] VITALS: BP 139/75; PULSE 57; RESP 15; TEMP 36.8; O2SAT 97
[2022-03-05 22:05] VITALS: BP 119/57; PULSE 68; RESP 18; TEMP 36.6; O2SAT 97
[2022-03-05] MEDS: OLANZapine 7.5 MG TABLET 15 MG PO (22:35)
[2022-03-05] MEDS: Prazosin HCL 5 MG CAPSULE PO (22:35)
--- NOTE | 2022-03-06 05:57 | PC.ADMIT ---
Pt is a 56 year old male admitted to the unit after referral from N at [facility]. Arrived on unit at 2109. Legal status: CV. Substance use: Pt reported daily heroin use, last use 03/03. FRANCO positive for opiates, fentanyl and cocaine. Pt was recently on M5 January 2022. Pt presented to the ED reporting SI with a plan to shoot himself, and stated that he had made arrangements with someone on the streets to purchase a gun. He also reported auditory hallucinations that tell him to hate myself and kill myself . Pt reports being compliant with medications prior to admission, denies a specific precipitant. Pt does have a trauma history and reported having an increase in nightmares and flashbacks from childhood trauma. He reports poor sleep and appetite due to depression. At time of admission pt presented with a depressed, blunted affect. He denied suicidal thoughts, no apparent evidence of psychosis noted. Med rec was completed in the ED. Provider notified of admission and orders obtained. Treatment plan initiated. Pt placed on 15 minute safety checks, contracts for unit safety. Dx: schizoaffective d/o bipolar type, PTSD, opioid use d/o.
[2022-03-06 08:00] VITALS: BP 131/75; PULSE 67; RESP 18; TEMP 36.6; O2SAT 98
[2022-03-06] MEDS: Ferrous Sulfate 324 MG TABLET.DR PO (08:57)
[2022-03-06] MEDS: FLUoxetine HCl 20 MG CAPSULE 40 MG PO (08:57)
[2022-03-06] MEDS: Multivitamin TABLET 1 TAB PO (08:57)
[2022-03-06] MEDS: Folic Acid 1 MG TABLET PO (08:58)
[2022-03-06] MEDS: Cyanocobalamin (Vitamin B-12) 100 MCG TABLET PO (08:58)
[2022-03-06] MEDS: Cholecalciferol (Vitamin D3) 10 MCG TABLET PO (08:58)
[2022-03-06] MEDS: Buprenorphine/Naloxone 8/2 mg FILM 2 FILM SUBLINGUAL (09:00)
[2022-03-06 09:21] LABS: Estimated Average Glucose 103 mg/dL; Hemoglobin A1C 123.7515 umol/L; Hemoglobin A1c % 5.2 %
[2022-03-06] MEDS: Capsaicin 0.025% Cream 60 GM TUBE 1 APPL TOPICAL (09:35)
[2022-03-06] MEDS: Clotrimazole 1 % Cream 15 GM TUBE 1 APPL TOPICAL (09:35)
[2022-03-06 10:40] LABS: Cholesterol 122 mg/dL; HDL Cholesterol 35 mg/dL; LDL Cholesterol Calculated 56 mg/dl; Magnesium 1.8 mg/dL (1.6-2.6); Triglycerides 155 mg/dL
[2022-03-06 11:32] LABS: Folate 18.4 ng/mL (> or = 4.0); Vitamin B12 400 pg/mL (200-900)
[2022-03-06] MEDS: Buprenorphine/Naloxone 4/1 mg FILM 1 FILM SUBLINGUAL (12:31)
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
[2022-03-06 22:40] VITALS: BP 160/82; PULSE 63; RESP 16; TEMP 36.8; O2SAT 99
[2022-03-06] MEDS: Buprenorphine/Naloxone 8/2 mg FILM 1 FILM SUBLINGUAL (22:44)
[2022-03-06] MEDS: Prazosin HCL 5 MG CAPSULE PO (22:44)
[2022-03-06] MEDS: OLANZapine 7.5 MG TABLET 15 MG PO (22:45)
[2022-03-07 08:00] VITALS: BP 129/74; PULSE 62; RESP 16; TEMP 36.7; O2SAT 96
[2022-03-07] MEDS: Cholecalciferol (Vitamin D3) 10 MCG TABLET PO (08:07)
[2022-03-07] MEDS: Ferrous Sulfate 324 MG TABLET.DR PO (08:07)
[2022-03-07] MEDS: FLUoxetine HCl 20 MG CAPSULE 40 MG PO (08:07)
[2022-03-07] MEDS: Cyanocobalamin (Vitamin B-12) 100 MCG TABLET PO (08:07)
[2022-03-07] MEDS: Multivitamin TABLET 1 TAB PO (08:08)
[2022-03-07] MEDS: Buprenorphine/Naloxone 8/2 mg FILM 1 FILM SUBLINGUAL ×2 (08:08→20:43)
[2022-03-07] MEDS: Folic Acid 1 MG TABLET PO (08:08)
[2022-03-07] MEDS: Nicotine 21 MG PATCH.TD24 TRANSDERMA (08:25)
[2022-03-07] MEDS: Buprenorphine/Naloxone 4/1 mg FILM 1 FILM SUBLINGUAL (12:14)
[2022-03-07] MEDS: NaPROXEN 250 MG TABLET PO ×2 (14:12→20:42)
--- NOTE | 2022-03-07 14:18 | P.PNPSI_ITS ---
Subjective Subjective Date of Service: 03/07/22 Reason For Visit: Depression,SI Interim History: pt calm and cooperative, observed ambulating without difficulty in the [place]. c/o knee pain, chronic and worse than at last hospitalization. asks for naprosyn, which is prescribed. doing good, getting a little better. informed of saturday discharge plan, seems to accept it. per staff, not attending groups, isolative, withdrawn. brief answers. little engagement. c/o knee pain. eriberto lopez CAH. Mental Status Exam Mental Status Exam Narrative: dressed in street clothes, adequately groomed. cooperative. general PMR. speech soft, decr amount. nml rate and latency. flattened prosody. thoughts linear and logical. affect constricted. mood doing good, getting a little better. no SI/HI/AVH expressed. Diagnostics Vital Signs (24Hr): Vital Signs - 24 hr 03/06/22 22:40 03/07/22 08:00 Temperature 98.2 F 98.1 F Pulse Rate 63 62 Respiratory Rate 16 16 Blood Pressure 160/82 H 129/74 Pulse Oximetry 99 96 Oxygen Delivery Method Room Air Room Air BMI result Body Mass Index 29.2 Labs Results: 03/04/22 04:29 03/04/22 04:29 Labs: Laboratory Results - last 48 hr 03/06/22 03/06/22 03/06/22 08:47 08:47 08:47 Estimat Average Glucose 103 Hemoglobin A1c % 5.2 Magnesium 1.8 Triglycerides 155 Cholesterol 122 D LDL Cholesterol, Calc 56 HDL Cholesterol 35 Vitamin B12 400 Folate 18.4 TSH 0.50 Free T4 1.00 Medications Medications Current Medications Acetaminophen (Acetaminophen 325 Mg Tablet) 650 mg PO Q6H PRN PRN Reason: Headache/Pain Mild Scale (1-3) Al Hydroxide/Mg Hydroxide (Magnesium Hydrox/Alum Hydrox 30 Ml Oral.Susp) 30 ml PO Q6H PRN PRN Reason: Heartburn/Nausea Buprenorphine/Naloxone (Buprenorphine/Naloxone 8/2 Mg Film) 1 film SUBLINGUAL BID@0800,2000 COUNT INCLUDES [facility] Last Admin: 03/07/22 08:08 Dose: 1 film Buprenorphine/Naloxone (Buprenorphine/Naloxone 4/1 Mg Film) 1 film SUBLINGUAL DAILY@1200 COUNT INCLUDES [facility] Last Admin: 03/07/22 12:14 Dose: 1 film Capsaicin (Capsaicin 0.025% Cream 60 Gm Tube) 1 appl TOPICAL TID PRN; Protocol PRN Reason: knee pain Last Admin: 03/06/22 09:35 Dose: 1 appl Clotrimazole (Clotrimazole 1 % Cream 15 Gm Tube) 1 appl TOPICAL BID COUNT INCLUDES THE [facility]; Protocol Last Admin: 03/07/22 08:29 Dose: Not Given Cyanocobalamin (Cyanocobalamin (Vitamin B-12) 100 Mcg Tablet) 100 mcg PO DAILY COUNT INCLUDES THE [facility] Last Admin: 03/07/22 08:07 Dose: 100 mcg Ferrous Sulfate (Ferrous Sulfate 324 Mg Tablet.Dr) 324 mg PO DAILY COUNT INCLUDES THE [facility] Last Admin: 03/07/22 08:07 Dose: 324 mg Fluoxetine HCl (Fluoxetine Hcl 20 Mg Capsule) 40 mg PO DAILY COUNT INCLUDES THE [facility] Last Admin: 03/07/22 08:07 Dose: 40 mg Folic Acid (Folic Acid 1 Mg Tablet) 1 mg PO DAILY COUNT INCLUDES THE [facility] Last Admin: 03/07/22 08:08 Dose: 1 mg Hydroxyzine HCl (Hydroxyzine Hcl 25 Mg Tablet) 25 mg PO Q6H PRN PRN Reason: Anxiety Magnesium Hydroxide (Milk Of Magnesia 30 Ml Oral.Susp) 30 ml PO DAILY PRN PRN Reason: Constipation Multivitamins/Vitamin C (Multivitamin Tablet) 1 tab PO DAILY COUNT INCLUDES THE [facility] Last Admin: 03/07/22 08:08 Dose: 1 tab Naproxen (Naproxen 250 Mg Tablet) 250 mg PO BIDWM COUNT INCLUDES THE [facility] Last Admin: 03/07/22 14:12 Dose: 250 mg Nicotine (Nicotine 21 Mg Patch.Td24) 21 mg TRANSDERMA DAILY COUNT INCLUDES THE [facility] Last Admin: 03/07/22 08:25 Dose: 21 mg Nicotine Polacrilex (Nicotine Polacrilex 2 Mg Gum) 2 mg BUCCAL Q1H PRN PRN Reason: Nicotine Cravings Olanzapine (Olanzapine 7.5 Mg Tablet) 15 mg PO BEDTIME COUNT INCLUDES THE [facility] Last Admin: 03/06/22 22:45 Dose: 15 mg Prazosin HCl (Prazosin Hcl 5 Mg Capsule) 5 mg PO BEDTIME COUNT INCLUDES THE [facility]; Protocol Last Admin: 03/06/22 22:44 Dose: 5 mg Trazodone HCl (Trazodone Hcl 50 Mg Tablet) 50 mg PO BEDTIME PRN PRN Reason: Insomnia Last Admin: 03/04/22 20:42 Dose: 50 mg Vitamin D (Cholecalciferol (Vitamin D3) 10 Mcg Tablet) 10 mcg PO DAILY COUNT INCLUDES THE [facility] Last Admin: 03/07/22 08:07 Dose: 10 mcg Allergies Allergies Allergy/AdvReac Type Severity Reaction Status Date / Time No Known Allergies Allergy Verified 01/16/22 22:10 [No Known Allergies*] Assessment & Plan Assessment & Plan (1) Active substance abuse: Status: Acute Code(s): F19.10 - Other psychoactive substance abuse, uncomplicated (2) Depression: Qualifiers: Depression Type: unspecified Qualified Code(s): F32.A - Depression, unspecified Status: Acute Code(s): F32.A - Depression, unspecified (3) Chronic post-traumatic stress disorder (PTSD): Status: Acute Code(s): F43.12 - Post-traumatic stress disorder, chronic Plan 03/06: opioid use disorder - continue suboxone, restabilize. cocaine use disorder - abstain. comfort meds for detox. mood disorder - continue outpt meds - prozac 40 PTSD - continue outpt meds - prazosin 5, olanzapine 15 tobaco use - NRT 03/07: improved mood, no CAH. continue current mgmt aside from adding naprosyn 250 BID. planning for 03/09 discharge. I spent ___25___ minutes with the patient and/or on the patient floor today, greater than?50% of which was spent counseling/coordinating care. Reason for contiued inpatient stay Substantial Risk for: inability to function and rapid decompensation
[2022-03-07 21:20] VITALS: BP 133/74; PULSE 70; RESP 16; TEMP 36.6; O2SAT 99
[2022-03-07] MEDS: Prazosin HCL 5 MG CAPSULE PO (21:26)
[2022-03-07] MEDS: OLANZapine 7.5 MG TABLET 15 MG PO (21:26)
[2022-03-08 07:00] VITALS: BMI 32.6
[2022-03-08 08:00] VITALS: BP 118/70; PULSE 75; RESP 16; TEMP 36.8; O2SAT 95
[2022-03-08] MEDS: Folic Acid 1 MG TABLET PO (08:00)
[2022-03-08] MEDS: NaPROXEN 250 MG TABLET PO ×2 (08:00→16:51)
[2022-03-08] MEDS: Multivitamin TABLET 1 TAB PO (08:00)
[2022-03-08] MEDS: Buprenorphine/Naloxone 8/2 mg FILM 1 FILM SUBLINGUAL ×2 (08:00→21:18)
[2022-03-08] MEDS: FLUoxetine HCl 20 MG CAPSULE 40 MG PO (08:00)
[2022-03-08] MEDS: Cholecalciferol (Vitamin D3) 10 MCG TABLET PO (08:00)
[2022-03-08] MEDS: Ferrous Sulfate 324 MG TABLET.DR PO (08:01)
[2022-03-08] MEDS: Cyanocobalamin (Vitamin B-12) 100 MCG TABLET PO (08:03)
[2022-03-08] MEDS: Nicotine 21 MG PATCH.TD24 TRANSDERMA (08:05)
--- NOTE | 2022-03-08 12:51 | P.PNPSI_ITS ---
Subjective Subjective Date of Service: 03/08/22 Reason For Visit: Depression,SI Interim History: calm, cooperative. prepared for discharge tomorrow. states he is feeling better in general, declines any changes to mgmt. awaiting referral to suboxone clinic here. per staff, expressing incr anx/dep. flat affect. visible in the milieu, rocking at the table. napping in his room. denies SI/HI/AVH. isolative. adequate appetite. anx/edp 5-6. c/o poor sleep. CAH: kill yourself expressed to some staff, not to others. Mental Status Exam Mental Status Exam Narrative: dressed in street clothes, adequately groomed. cooperative. general PMR. speech soft, decr amount. nml rate and latency. flattened prosody. thoughts linear and logical. affect constricted. mood improved. no SI/HI/AVH expressed. Diagnostics Vital Signs (24Hr): Vital Signs - 24 hr 03/07/22 21:20 Temperature 97.8 F Pulse Rate 70 Respiratory Rate 16 Blood Pressure 133/74 Pulse Oximetry 99 Oxygen Delivery Method Room Air BMI result Body Mass Index 29.2 Labs Results: 03/04/22 04:29 03/04/22 04:29 Medications Medications Current Medications Acetaminophen (Acetaminophen 325 Mg Tablet) 650 mg PO Q6H PRN PRN Reason: Headache/Pain Mild Scale (1-3) Al Hydroxide/Mg Hydroxide (Magnesium Hydrox/Alum Hydrox 30 Ml Oral.Susp) 30 ml PO Q6H PRN PRN Reason: Heartburn/Nausea Buprenorphine/Naloxone (Buprenorphine/Naloxone 8/2 Mg Film) 1 film SUBLINGUAL BID@0800,2000 [facility] Last Admin: 03/08/22 08:00 Dose: 1 film Buprenorphine/Naloxone (Buprenorphine/Naloxone 4/1 Mg Film) 1 film SUBLINGUAL DAILY@1200 [facility] Last Admin: 03/07/22 12:14 Dose: 1 film Capsaicin (Capsaicin 0.025% Cream 60 Gm Tube) 1 appl TOPICAL TID PRN; Protocol PRN Reason: knee pain Last Admin: 03/06/22 09:35 Dose: 1 appl Clotrimazole (Clotrimazole 1 % Cream 15 Gm Tube) 1 appl TOPICAL BID [facility]; Protocol Last Admin: 03/08/22 08:05 Dose: Not Given Cyanocobalamin (Cyanocobalamin (Vitamin B-12) 100 Mcg Tablet) 100 mcg PO DAILY [facility] Last Admin: 03/08/22 08:03 Dose: 100 mcg Ferrous Sulfate (Ferrous Sulfate 324 Mg Tablet.) 324 mg PO DAILY [facility] Last Admin: 03/08/22 08:01 Dose: 324 mg Fluoxetine HCl (Fluoxetine Hcl 20 Mg Capsule) 40 mg PO DAILY [facility] Last Admin: 03/08/22 08:00 Dose: 40 mg Folic Acid (Folic Acid 1 Mg Tablet) 1 mg PO DAILY [facility] Last Admin: 03/08/22 08:00 Dose: 1 mg Hydroxyzine HCl (Hydroxyzine Hcl 25 Mg Tablet) 25 mg PO Q6H PRN PRN Reason: Anxiety Magnesium Hydroxide (Milk Of Magnesia 30 Ml Oral.Susp) 30 ml PO DAILY PRN PRN Reason: Constipation Multivitamins/Vitamin C (Multivitamin Tablet) 1 tab PO DAILY [facility] Last Admin: 03/08/22 08:00 Dose: 1 tab Naproxen (Naproxen 250 Mg Tablet) 250 mg PO BIDWM [facility] Last Admin: 03/08/22 08:00 Dose: 250 mg Nicotine (Nicotine 21 Mg Patch.Td24) 21 mg TRANSDERMA DAILY [facility] Last Admin: 03/08/22 08:05 Dose: 21 mg Nicotine Polacrilex (Nicotine Polacrilex 2 Mg Gum) 2 mg BUCCAL Q1H PRN PRN Reason: Nicotine Cravings Olanzapine (Olanzapine 7.5 Mg Tablet) 15 mg PO BEDTIME [facility] Last Admin: 03/07/22 21:26 Dose: 15 mg Prazosin HCl (Prazosin Hcl 5 Mg Capsule) 5 mg PO BEDTIME [facility]; Protocol Last Admin: 03/07/22 21:26 Dose: 5 mg Trazodone HCl (Trazodone Hcl 50 Mg Tablet) 50 mg PO BEDTIME PRN PRN Reason: Insomnia Last Admin: 03/04/22 20:42 Dose: 50 mg Vitamin D (Cholecalciferol (Vitamin D3) 10 Mcg Tablet) 10 mcg PO DAILY [facility] Last Admin: 03/08/22 08:00 Dose: 10 mcg Allergies Allergies Allergy/AdvReac Type Severity Reaction Status Date / Time No Known Allergies Allergy Verified 01/16/22 22:10 [No Known Allergies*] Assessment & Plan Assessment & Plan (1) Active substance abuse: Status: Acute Code(s): F19.10 - Other psychoactive substance abuse, uncomplicated (2) Depression: Qualifiers: Depression Type: unspecified Qualified Code(s): F32.A - Depression, unspecified Status: Acute Code(s): F32.A - Depression, unspecified (3) Chronic post-traumatic stress disorder (PTSD): Status: Acute Code(s): F43.12 - Post-traumatic stress disorder, chronic Plan 03/06: opioid use disorder - continue suboxone, restabilize. cocaine use disorder - abstain. comfort meds for detox. mood disorder - continue outpt meds - prozac 40 PTSD - continue outpt meds - prazosin 5, olanzapine 15 tobaco use - NRT 03/07: improved mood, no CAH. continue current mgmt aside from adding naprosyn 250 BID. planning for 03/09 discharge. 03/08: mood remains improved, planning for discharge tomorrow. I spent ___20___ minutes with the patient and/or on the patient floor today, greater than?50% of which was spent counseling/coordinating care. Reason for contiued inpatient stay Substantial Risk for: inability to function and rapid decompensation
[2022-03-08] MEDS: Buprenorphine/Naloxone 4/1 mg FILM 1 FILM SUBLINGUAL (13:15)
[2022-03-08] MEDS: Clotrimazole 1 % Cream 15 GM TUBE 1 APPL TOPICAL (21:27)
[2022-03-08 22:40] VITALS: BP 137/75; PULSE 70; TEMP 36.6; O2SAT 96
[2022-03-08] MEDS: Prazosin HCL 5 MG CAPSULE PO (22:42)
[2022-03-08] MEDS: OLANZapine 7.5 MG TABLET 15 MG PO (22:42)
[2022-03-09] MEDS: Nicotine 21 MG PATCH.TD24 TRANSDERMA (07:54)
[2022-03-09] MEDS: Cyanocobalamin (Vitamin B-12) 100 MCG TABLET PO (07:54)
[2022-03-09] MEDS: Buprenorphine/Naloxone 8/2 mg FILM 1 FILM SUBLINGUAL (07:54)
[2022-03-09] MEDS: FLUoxetine HCl 20 MG CAPSULE 40 MG PO (07:55)
[2022-03-09] MEDS: Cholecalciferol (Vitamin D3) 10 MCG TABLET PO (07:55)
[2022-03-09] MEDS: Folic Acid 1 MG TABLET PO (07:55)
[2022-03-09] MEDS: Ferrous Sulfate 324 MG TABLET.DR PO (07:55)
[2022-03-09] MEDS: Multivitamin TABLET 1 TAB PO (07:55)
[2022-03-09] MEDS: NaPROXEN 250 MG TABLET PO (07:55)
[2022-03-09 08:09] VITALS: BP 144/76; PULSE 73; RESP 17; TEMP 36.6; O2SAT 98
[2022-03-09] MEDS: Clotrimazole 1 % Cream 15 GM TUBE 1 APPL TOPICAL (08:29)
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
[2022-03-09] MEDS: Buprenorphine/Naloxone 4/1 mg FILM 1 FILM SUBLINGUAL (11:32)
== END 2022-03-09 11:46 | disposition home or self-care (01) | DRG 754 ==
LOC: HO.ED 03-05 21:06 → HO.PADLT16 03-05 21:10
PROVIDERS: Registered Nurse; Admitting Provider Psychiatry & Neurology Psychiatry; Emergency Provider Emergency Medicine; Visit Provider Psychiatry & Neurology Psychiatry
DX: F32.9 Major depressive disorder, single episode, unspecified (principal); R45.851 Suicidal ideations; F11.20 Opioid dependence, uncomplicated; F17.210 Nicotine dependence, cigarettes, uncomplicated; Z71.6 Tobacco abuse counseling; Z20.822 Contact with and (suspected) exposure to COVID-19; F14.10 Cocaine abuse, uncomplicated; F32.A Depression, unspecified; F43.12 Post-traumatic stress disorder, chronic; Z79.899 Other long term (current) drug therapy
CPT/HCPCS: 36415; 80048; 80061; 80076; 80307; 82077; 82607; 82746; 83036; 83735; 84439; 84443; 85025; 87635; 93005; 97161; 99285

== ENCOUNTER 2022-03-10 02:54 | Emergency (ER) | payer MEDICAID, SELFPAY ==
[2022-03-10 02:58] VITALS: BP 130/89; PULSE 99; RESP 17; TEMP 36.3; O2SAT 96; BMI 34.2
[2022-03-10 03:29] LABS: COVID-19 Test Negative (Negative)
[2022-03-10 03:31] LABS: Amphetamine Screen Urine Not Detected (Not Detect); Barbiturates, Urine Not Detected (Not Detect); Benzodiazepines Screen Urine Not Detected (Not Detect); Cannabinoid Screen Urine Not Detected (Not Detect); Cocaine Screen Urine POSITIVE (Not Detect); Fentanyl, urine POSITIVE (Not Detect); Opiate Screen Urine Not Detected (Not Detect); Phencyclidine Screen Urine Not Detected (Not Detect)
--- NOTE | 2022-03-10 06:24 | ED.PSYCH ---
HPI - Psych General Chief Complaint: Psychiatric Symptoms Stated Complaint: crisis Time Seen by Provider: 03/10/22 06:21 Source: patient and EMS Mode of arrival: EMS Limitations: no limitations History of Present Illness HPI Narrative: Patient comes emergency room complaining of suicidal ideation. Patient states that he has been unable to get his medications. Patient was discharged yesterday, patient was admitted for active substance abuse, depression, and PTSD. Related Data Home Medications Medication Instructions Recorded Confirmed olanzapine 7.5 mg tablet 2 tab PO BEDTIME 03/04/22 03/10/22 Previous Rx's Medication Instructions Recorded buprenorphine 4 mg-naloxone 1 mg 1 film sublingual DAILY@1300 #7 ea 02/06/22 sublingual film (Suboxone) capsaicin 0.025 % topical cream 1 appl topical TID PRN knee pain 02/06/22 #25 grams cholecalciferol (vitamin D3) 10 10 mcg PO DAILY #30 tabs 02/06/22 mcg (400 unit) tablet (Vitamin D3) clotrimazole 1 % topical cream 1 appl topical BID #1 applicator 02/06/22 cyanocobalamin (vitamin B-12) 100 100 mcg PO DAILY 30 days #30 tabs 02/06/22 mcg tablet (Vitamin B-12) ferrous sulfate 324 mg (65 mg 324 mg PO DAILY #30 tabs 02/06/22 iron) tablet,delayed release fluoxetine 20 mg capsule 40 mg PO DAILY 30 days #60 caps 02/06/22 folic acid 1 mg tablet 1 tab PO DAILY #30 tabs 02/06/22 multivitamin (Daily-Ty tablet) 1 tab PO DAILY #30 tabs 02/06/22 nicotine 21 mg/24 hr daily 21 mg transdermal DAILY #30 ea 02/06/22 transdermal patch prazosin 5 mg capsule 5 mg PO BEDTIME #30 caps 02/06/22 trazodone 50 mg tablet 50 mg PO BEDTIME PRN Insomnia #30 02/06/22 tabs buprenorphine 8 mg-naloxone 2 mg 1 film sublingual BID@0800,2000 3 03/09/22 sublingual film (Suboxone) days #6 ea Allergies Allergy/AdvReac Type Severity Reaction Status Date / Time No Known Allergies Allergy Verified 01/16/22 22:10 [No Known Allergies*] Review of Systems Review of Systems: Constitutional : No Weight loss, No Fever, No Chills, No Night Sweats, No Fatigue, No Malaise ENT/Mouth : No Hearing loss, No Ear Pain, No Nasal Congestion, No Sinus Pain, No Hoarseness, No sore throat, No Rhinorrhea, No Swallowing Difficulty Eyes: No Eye Pain, No Swelling, No Redness, No Foreign Body, No Discharge, No Vision Changes Cardiovascular : No Chest Pain, No SOB, No Dyspnea on Exertion, No Orthopnea, No Edema, No Palpitations Respiratory : No Cough, No Sputum, No Wheezing, No Smoke Exposure, No Dyspnea Gastrointestinal : No Nausea, No Vomiting, No Diarrhea, No Constipation, No abdominal Pain, No Hematochezia, No Melena Genitourinary : no irregular bleeding, No Dysuria, No Urinary Frequency, No Hematuria, No Urinary Incontinence, No Urgency, No Flank Pain, No Urinary Flow Changes, No Hesitancy Musculoskeletal : No joint pain, No Myalgias, No Joint Swelling Skin : No Skin Lesions, No rash Neuro : No Weakness, No Numbness, No Paresthesias, No Loss of Consciousness, No Dizziness, No Headache Psych : complaining of depression, suicidal ideation, no homicidal ideation Heme/Lymph: No Bruising, No Bleeding,No Lymphadenopathy Endocrine : No Polyuria, No Polydipsia, No Temperature Intolerance PMFSH Past Medical History Medical History Atypical bipolar disorder B12 deficiency Chronic post-traumatic stress disorder (PTSD) Chronic schizophrenia Cocaine use disorder Depressive disorder Heroin use Opioid use disorder, moderate, in early remission, on maintenance therapy, dependence Social History Social History Household Members: Significant Other Household Members Other:: plans to move in with sister after discharge Housing: Unknown / Unable to assess Housing Other:: pt plans on living with his sister after D/C Do you presently have visiting nurse or other home services: No Alcohol intake: current Alcohol intake frequency: a few times a week Patient Tobacco Use Status: Current everyday Tobacco user Tobacco use type: Cigarette Cigarette Packs Per Day: 0.5 Cigarettes Per Day: 10.0 Years Smoked: 20 e-Cigarette/Vaping Use: Never Used Second Hand Smoke Exposure: Yes Substance Use Type: Heroin Advance Directives: No service: No Sexual orientation: Straight/Heterosexual Physical Exam Vital Signs: Vital Signs: Last Vital Signs Temp 97.3 F 03/10/22 02:58 Pulse 99 03/10/22 02:58 Resp 17 03/10/22 02:58 BP 130/89 03/10/22 02:58 Pulse Ox 96 03/10/22 02:58 O2 Del Method 03/10/22 02:58 BMI result Body Mass Index 34.2 Const: Other: Appearance: Alert. Oriented X3. No acute distress. Eyes: Pupils equal, round and reactive to light. ENT: Pharynx normal. Neck: Normal inspection. Neck supple. No lymph nodes noted. No crepitus CVS: Normal heart rate and rhythm. Pulses normal. Normal S1 and S2 Respiratory: No respiratory distress. Breath sounds normal. No Wheezing. No rales Abdomen: Soft and nontender. No rigidity. No distention. Skin: Skin warm and dry. Normal skin color. Normal skin turgor. Extremities: No lower extremity edema. No Lacerations. No Rash Neuro: Oriented X 3. No motor deficit. No sensory deficit. Moving all extremities. No slurred speech. CN 2 through 12 grossly intact Psych: calm, cooperative, normal affect Course Course Course Narrative: Physician observation started at 06:25 [facility] health network consult pending [facility] - Psych Lab Data Labs: Lab Results 03/10/22 03/10/22 Range/Units 03:09 03:09 Urine Opiates Screen Not Detected (Not Detect) Urine Fentanyl Screen POSITIVE H (Not Detect) Ur Barbiturates Screen Not Detected (Not Detect) Ur Phencyclidine Scrn Not Detected (Not Detect) Ur Amphetamines Screen Not Detected (Not Detect) U Benzodiazepines Scrn Not Detected (Not Detect) Urine Cocaine Screen POSITIVE H (Not Detect) U Marijuana (THC) Screen Not Detected (Not Detect) COVID-19 ([place]) Negative (Negative) COVID-19 Clin Com See Note Discharge Plan Discharge Clinical Impression: Suicidal ideations Patient Disposition: Still a Patient Prescriptions: No Action trazodone 50 mg Tablet 50 mg PO BEDTIME PRN (Reason: Insomnia) Qty: 30 0RF capsaicin 0.025 % Cream 1 appl topical TID PRN (Reason: knee pain) Qty: 25 0RF Protocol: Apply to: Apply to: R knee clotrimazole 1 % Cream 1 appl topical BID Qty: 1 0RF Protocol: Apply to: Apply to: Groin ferrous sulfate 324 mg (65 mg iron) Tablet,Delayed Release (Dr/Ec) 324 mg PO DAILY Qty: 30 0RF multivitamin [Daily-Ty] Tablet 1 tab PO DAILY Qty: 30 0RF cyanocobalamin (vitamin B-12) [Vitamin B-12] 100 mcg Tablet 100 mcg PO DAILY 30 Days Qty: 30 0RF prazosin 5 mg capsule 5 mg PO BEDTIME Qty: 30 0RF nicotine 21 mg/24 hr Patch 24 Hour 21 mg transdermal DAILY Qty: 30 0RF folic acid 1 mg tablet 1 tab PO DAILY Qty: 30 0RF fluoxetine 20 mg Capsule 40 mg PO DAILY 30 Days Qty: 60 0RF cholecalciferol (vitamin D3) [Vitamin D3] 10 mcg (400 unit) Tablet 10 mcg PO DAILY Qty: 30 0RF buprenorphine-naloxone [Suboxone] 4-1 mg Film 1 film sublingual DAILY@1300 Qty: 7 0RF olanzapine 7.5 mg tablet 2 tab PO BEDTIME buprenorphine-naloxone [Suboxone] 8-2 mg Film 1 film sublingual BID@0800,2000 3 Days Qty: 6 0RF
--- NOTE | 2022-03-10 06:31 | PC.NURSE ---
Patient in bed appears sleeping, no distress observed/reported, behavior non concerning at this time, [facility] referral completed/confirmed/pending ETA, med rec completed/pending provider's approval, will continue to monitor.
--- NOTE | 2022-03-10 07:01 | PC.NURSE ---
patient appears to remain asleep at present respirations are even and unlabored patient appears in no distress
== END 2022-03-10 11:22 | disposition home or self-care (01) ==
PROVIDERS: Emergency Provider Emergency Medicine
DX: R45.851 Suicidal ideations (principal); F19.10 Other psychoactive substance abuse, uncomplicated; F32.A Depression, unspecified; F25.0 Schizoaffective disorder, bipolar type; F43.12 Post-traumatic stress disorder, chronic; F11.20 Opioid dependence, uncomplicated; F17.210 Nicotine dependence, cigarettes, uncomplicated; Z79.899 Other long term (current) drug therapy; Z20.822 Contact with and (suspected) exposure to COVID-19
CPT/HCPCS: 80307; 87635; 99284

== ENCOUNTER 2022-03-18 17:20 | Emergency (ER) | payer MEDICAID, SELFPAY | END 2022-03-18 21:24 | disposition left against medical advice (07) | PROVIDERS: Emergency Provider Emergency Medicine | DX: L03.019 Cellulitis of unspecified finger (principal) ==

== ENCOUNTER 2022-03-24 17:29 | Emergency (ER) | payer MEDICAID, SELFPAY ==
[2022-03-24 17:33] VITALS: BP 145/74; PULSE 80; RESP 18; TEMP 37.2; O2SAT 100; BMI 30.1
--- NOTE | 2022-03-24 17:45 | ED.PSYCH ---
HPI - Psych General Chief Complaint: Psychiatric Symptoms Stated Complaint: crisis Time Seen by Provider: 03/24/22 17:45 Source: patient Mode of arrival: ambulatory Limitations: no limitations History of Present Illness HPI Narrative: This is a 56-year-old male with a history significant for substance abuse, depression, schizoaffective disorder, PTSD, opioid use disorder who presents to the emergency department for SI with plan to OD or use a firearm. He tells me he doesnt have access to a firearm. At this time he has been hearing voices in his head that of an telling him to harm himself. He tells me that he recently lost a family member and because of these recent life stressors has relapsed on heroin. Denies homicidal ideation. Denies visual or tactile hallucinations. No medical complaints at this time MD complaint: suicidal ideation Related Data Previous Rx's Medication Instructions Recorded buprenorphine 4 mg-naloxone 1 mg 1 film sublingual DAILY@1300 #7 ea 02/06/22 sublingual film (Suboxone) capsaicin 0.025 % topical cream 1 appl topical TID PRN knee pain 02/06/22 #25 grams cholecalciferol (vitamin D3) 10 10 mcg PO DAILY #30 tabs 02/06/22 mcg (400 unit) tablet (Vitamin D3) clotrimazole 1 % topical cream 1 appl topical BID #1 applicator 02/06/22 cyanocobalamin (vitamin B-12) 100 100 mcg PO DAILY 30 days #30 tabs 02/06/22 mcg tablet (Vitamin B-12) ferrous sulfate 324 mg (65 mg 324 mg PO DAILY #30 tabs 02/06/22 iron) tablet,delayed release fluoxetine 20 mg capsule 40 mg PO DAILY 30 days #60 caps 02/06/22 folic acid 1 mg tablet 1 tab PO DAILY #30 tabs 02/06/22 multivitamin (Daily-Ty tablet) 1 tab PO DAILY #30 tabs 02/06/22 nicotine 21 mg/24 hr daily 21 mg transdermal DAILY #30 ea 02/06/22 transdermal patch prazosin 5 mg capsule 5 mg PO BEDTIME #30 caps 02/06/22 trazodone 50 mg tablet 50 mg PO BEDTIME PRN Insomnia #30 02/06/22 tabs buprenorphine 8 mg-naloxone 2 mg 1 film sublingual BID@0800,2000 3 03/09/22 sublingual film (Suboxone) days #6 ea olanzapine 15 mg tablet 15 mg PO BEDTIME #30 tabs 03/10/22 Allergies Allergy/AdvReac Type Severity Reaction Status Date / Time No Known Allergies Allergy Verified 01/16/22 22:10 [No Known Allergies*] Review of Systems Review of Systems: Constitutional : No Weight loss, No Fever, No Chills, No Fatigue, No Malaise ENT/Mouth : No sore throat, No Rhinorrhea Eyes: No Eye Pain, No Swelling, No Redness Cardiovascular : No Chest Pain, No SOB, No Dyspnea on Exertion, No Orthopnea, No Edema, No Palpitations Respiratory : No Cough, No Sputum, No Wheezing Gastrointestinal : No Nausea, No Vomiting, No Diarrhea, No Constipation, No abdominal Pain, No Hematochezia, No Melena Genitourinary : No Dysuria, No Urinary Frequency, No Hematuria, Musculoskeletal : No joint pain, No Myalgias, No Joint Swelling Skin : No Skin Lesions, No rash Neuro : No Weakness, No Numbness, No Dizziness, No Headache Psych : + Anxiety/Panic, + Depression, + SI and No HI All other systems reviewed and are negative Yes all other systems are reviewed and are negative [facility] Past Medical History Attestation statement: The following information was validated with the patient. Source: old records reviewed and nursing notes reviewed Medical History Atypical bipolar disorder B12 deficiency Chronic post-traumatic stress disorder (PTSD) Chronic schizophrenia Cocaine use disorder Depressive disorder Heroin use Opioid use disorder, moderate, in early remission, on maintenance therapy, dependence Social History Social History Household Members: Significant Other Household Members Other:: plans to move in with sister after discharge Housing: Unknown / Unable to assess Housing Other:: pt plans on living with his sister after D/C Do you presently have visiting nurse or other home services: No Alcohol intake: current Alcohol intake frequency: a few times a week Patient Tobacco Use Status: Current everyday Tobacco user Tobacco use type: Cigarette Cigarette Packs Per Day: 0.5 Cigarettes Per Day: 10.0 Years Smoked: 20 e-Cigarette/Vaping Use: Never Used Second Hand Smoke Exposure: Yes Substance Use Type: Heroin Advance Directives: No Advance Directives Information Provided: No service: No Sexual orientation: Straight/Heterosexual Physical Exam Vital Signs: Vital Signs: Last Vital Signs Temp 98.2 F 03/24/22 19:49 Pulse 61 03/24/22 19:49 Resp 15 03/24/22 19:49 BP 125/78 03/24/22 19:49 Pulse Ox 94 03/24/22 19:49 O2 Del Method 03/24/22 19:49 BMI result Body Mass Index 30.1 vss Appearance: Alert.? Oriented X3.? No acute distress.? Head: Normocephalic, atraumatic, no step-offs or deformities Eyes: Pupils equal, round and reactive to light.? ENT: Pharynx normal.? Neck: Normal inspection.? Neck supple.? CVS: Normal heart rate and rhythm.? Pulses normal.? Respiratory: No respiratory distress.? Breath sounds normal.? Abdomen: Soft and nontender.? Skin: Skin warm and dry.? Normal skin color.? Normal skin turgor.? Extremities: No lower extremity edema.? No calf ttp. 5/5 strength to bilateral upper and lower extremities Back: No midline tenderness, no C-spine tenderness, full range of motion, no CVA tenderness bilaterally Neuro: Oriented X 3.? No motor deficit.? No sensory deficit. CN 2-12 intact Course Reevaluation(s) Reevaluation #1: CBC within normal limits. Chemistry with no acute electrolyte abnormalities requiring intervention. Urine toxicology pending, ethanol 18. COVID negative. [facility] spoke to this patient and he does clarify that he does not personally have firearms himself however he says anyone could get fire arms of they wanted them however at this time he is denying suicidal or homicidal ideation. He would like to go home. Discussed w/ my attending who agrees w/ plan. Patient will be discharged home with outpatient providers,. This time I feel comfortable with discharge. Time: 20:39 MDM - Psych MDM Narrative Medical decision making narrative: 147 this is a 56-year-old male who presents to the ED with SI with plan, and auditory hallucinations x1 day. history of substance abuse, depression, Xyzal affective disorder, PTSD, opioid abuse disorder. Recent life stressors of the loss of family member and relapse on heroin. Physical exam benign. Plan at this time is to medically clear the patient to be evaluated by the behavioral health team. Patient will be placed on a Section 12. 1-[address] Medical Records Attestation: I reviewed the patient's medical records. Lab Data Attestation: I reviewed the patient's lab results. Result diagrams: 03/24/22 17:42 03/24/22 17:42 Labs: Lab Results 03/24/22 03/24/22 03/24/22 Range/Units 17:38 17:42 17:42 WBC 8.2 (4.8-10.8) X10*3/uL RBC 4.67 (4.60-5.80) X10*6/uL Hgb 14.0 (14.0-18.0) g/dl Hct 41.1 L (42.0-52.0) % MCV 88.0 (80.0-98.0) fL MCH 30.0 (27.0-33.0) pg MCHC 34.1 (31.0-36.0) g/dl RDW 12.7 (11.0-16.0) % Plt Count 278 D (160-400) X10*3/uL MPV 9.5 (9.4-12.4) fL Immature Gran % (Auto) 0.2 (0.0-0.4) % Neut % (Auto) 64.0 (45-73) % Lymph % (Auto) 21.8 (20-40) % [place] % (Auto) 11.8 H (2-11) % Eos % (Auto) 1.8 (0-4) % Baso % (Auto) 0.4 (0-2) % Lymph # (Auto) 1.8 (1.2-4.9) X10*3/uL [place] # (Auto) 1.0 (0.1-1.2) X10*3/uL Eos # (Auto) 0.2 (0.0-0.4) X10*3/uL Baso # (Auto) 0.0 (0.0-0.2) X10*3/uL Abs Immat Gran (auto) 0.02 (0.00-0.03) X10*3/uL Absolute Neuts (auto) 5.3 (2.0-8.3) x10*3/uL Absolute Nucleated RBC 0.000 (0.0-0.012) X10*3/uL Nucleated RBC % (auto) 0.0 (0.0-0.2) /100WBC Sodium 141 (135-145) mmol/L Potassium 4.1 (3.3-5.1) mmol/L Chloride 103 (96-108) mmol/L Carbon Dioxide 28 (22-29) mmol/L Anion Gap 14 (12-20) BUN 19 H (9-16) mg/dL Creatinine 1.40 (0.5-1.4) mg/dL Estim Creat Clear Calc 65.6 Estimated GFR 53 Random Glucose 96 (60-115) mg/dL Calcium 9.8 (8.4-10.2) mg/dL Total Bilirubin 0.5 (0.0-1.0) mg/dL Direct Bilirubin 0.2 (0.0-0.5) mg/dL AST 27 (5-37) U/L ALT 20 (0-40) U/L Alkaline Phosphatase 81 (39-117) U/L Total Protein 7.8 (6.5-8.0) g/dL Albumin 4.2 (3.5-5.0) g/dL Ethyl Alcohol 18 mg/dL COVID-19 ([facility]) Negative (Negative) COVID-19 Clin Com See Note Critical Care Time Critical Care Time Critical Care Time: No Discharge Plan Discharge Clinical Impression: Schizoaffective disorder, bipolar type Patient Disposition: Home, Self-Care Instructions: Schizoaffective Disorder (ED) Additional Instructions: Take your medications as prescribed. If you were prescribed antibiotics today, it is important that you take your medication to their entirety, do not skip any doses, do not finish them early. Follow-up with your primary care provider this week. Return to the emergency department with new or worsening symptoms. Such as fevers, chills, chest pain, shortness of breath, nausea, vomiting, dizziness, headache, vision changes, lethargy , suicidal and homicidal ideation. In case of emergency call 911 Prescriptions: No Action trazodone 50 mg Tablet 50 mg PO BEDTIME PRN (Reason: Insomnia) Qty: 30 0RF capsaicin 0.025 % Cream 1 appl topical TID PRN (Reason: knee pain) Qty: 25 0RF Protocol: Apply to: Apply to: R knee clotrimazole 1 % Cream 1 appl topical BID Qty: 1 0RF Protocol: Apply to: Apply to: Groin ferrous sulfate 324 mg (65 mg iron) Tablet,Delayed Release (Dr/Ec) 324 mg PO DAILY Qty: 30 0RF multivitamin [Daily-Ty] Tablet 1 tab PO DAILY Qty: 30 0RF cyanocobalamin (vitamin B-12) [Vitamin B-12] 100 mcg Tablet 100 mcg PO DAILY 30 Days Qty: 30 0RF prazosin 5 mg capsule 5 mg PO BEDTIME Qty: 30 0RF nicotine 21 mg/24 hr Patch 24 Hour 21 mg transdermal DAILY Qty: 30 0RF folic acid 1 mg tablet 1 tab PO DAILY Qty: 30 0RF fluoxetine 20 mg Capsule 40 mg PO DAILY 30 Days Qty: 60 0RF cholecalciferol (vitamin D3) [Vitamin D3] 10 mcg (400 unit) Tablet 10 mcg PO DAILY Qty: 30 0RF buprenorphine-naloxone [Suboxone] 4-1 mg Film 1 film sublingual DAILY@1300 Qty: 7 0RF olanzapine 15 mg tablet 15 mg PO BEDTIME Qty: 30 0RF buprenorphine-naloxone [Suboxone] 8-2 mg Film 1 film sublingual BID@0800,2000 3 Days Qty: 6 0RF [facility] [Provider Group] - 2 days Angel Pisano MD [Primary Care Provider] - 2 days Stand Alone Forms: Work/School Release
[2022-03-24 17:47] LABS: Basophils Percent Auto 0.4 % (0-2); Eosinophils Absolute Auto 0.2 X10*3/uL (0.0-0.4); Eosinophils Percent Auto 1.8 % (0-4); Hematocrit 41.1 % (42.0-52.0); Imm Gran Abs Auto 0.02 X10*3/uL (0.00-0.03); Imm Gran Pct Auto 0.2 % (0.0-0.4); Lymphocytes Absolute Auto 1.8 X10*3/uL (1.2-4.9); Lymphocytes Percent Auto 21.8 % (20-40); MANUAL DIFF FLAG NO; Mean Corpuscular HGB Conc 34.1 g/dl (31.0-36.0); Mean Platelet Volume 9.5 fL (9.4-12.4); Monocytes Percent Auto 11.8 % (2-11); Neutrophils Absolute Auto 5.3 x10*3/uL (2.0-8.3); Platelet Count 278 X10*3/uL (160-400); Red Blood Count 4.67 X10*6/uL (4.60-5.80); Red Cell Distribution Width 12.7 % (11.0-16.0); White Blood Count 8.2 X10*3/uL (4.8-10.8)
[2022-03-24 18:03] LABS: COVID-19 Test Negative (Negative)
[2022-03-24 18:07] LABS: Alanine Aminotransferase 20 U/L (0-40); Albumin Level 4.2 g/dL (3.5-5.0); Alkaline Phosphatase 81 U/L (39-117); Anion Gap 14 (12-20); Aspartate Amino Transferase 27 U/L (5-37); Bilirubin Direct 0.2 mg/dL (0.0-0.5); Bilirubin Total 0.5 mg/dL (0.0-1.0); Blood Urea Nitrogen 19 mg/dL (9-16); Calcium 9.8 mg/dL (8.4-10.2); Carbon Dioxide 28 mmol/L (22-29); Chloride 103 mmol/L (96-108); Creatinine Clr Calc Pharmacy 65.6; Estimated Glomerular Filt Rate 53; Ethanol 18 mg/dL; Glucose Random 96 mg/dL (60-115); Potassium 4.1 mmol/L (3.3-5.1); Sodium 141 mmol/L (135-145); Total Protein 7.8 g/dL (6.5-8.0)
[2022-03-24 19:49] VITALS: BP 125/78; PULSE 61; RESP 15; TEMP 36.8; O2SAT 94
[2022-03-24 20:53] LABS: Amphetamine Screen Urine Not Detected (Not Detect); Barbiturates, Urine Not Detected (Not Detect); Benzodiazepines Screen Urine Not Detected (Not Detect); Cannabinoid Screen Urine Not Detected (Not Detect); Cocaine Screen Urine POSITIVE (Not Detect); Fentanyl, urine POSITIVE (Not Detect); Opiate Screen Urine POSITIVE (Not Detect); Phencyclidine Screen Urine Not Detected (Not Detect)
== END 2022-03-24 20:45 | disposition home or self-care (01) ==
PROVIDERS: Emergency Provider Emergency Medicine; PCP Family Medicine
DX: F25.0 Schizoaffective disorder, bipolar type (principal); R45.851 Suicidal ideations; F19.10 Other psychoactive substance abuse, uncomplicated; F43.12 Post-traumatic stress disorder, chronic; F11.20 Opioid dependence, uncomplicated; Z79.899 Other long term (current) drug therapy; F41.9 Anxiety disorder, unspecified; F17.210 Nicotine dependence, cigarettes, uncomplicated; Z20.822 Contact with and (suspected) exposure to COVID-19
CPT/HCPCS: 80053; 80307; 82077; 82248; 85025; 87635; 99283; 99284

== ENCOUNTER 2022-07-28 10:07 | Emergency (ER) | payer MEDICAID, SELFPAY ==
[2022-07-28 10:11] VITALS: BP 132/82; PULSE 91; RESP 18; TEMP 36.8; O2SAT 100; BMI 25.0
--- NOTE | 2022-07-28 10:34 | ED.GENADULT ---
HPI - General Adult General Chief complaint: Psychiatric Symptoms <MIRIAM Villanueva - Last Filed: 07/28/22 16:33> Stated complaint: crisis <MIRIAM Villanueva - Last Filed: 07/28/22 16:33> Time Seen by Provider: 07/28/22 10:34 <MIRIAM Villanueva - Last Filed: 07/28/22 16:33> Source: patient <MIRIAM Villanueva - Last Filed: 07/28/22 16:33> Mode of arrival: ambulatory <MIRIAM Villanueva - Last Filed: 07/28/22 16:33> Limitations: no limitations <MIRIAM Villanueva - Last Filed: 07/28/22 16:33> History of Present Illness HPI narrative: Patient is a 57 year old assigned male at with a history of opiate use presenting to the emergency department today with suicidal ideation. Patient states that he wants to kill himself. Patient denies any plans on how to kill himself. Patient denies any dizziness, lightheadedness, abdominal pain, nausea, vomiting, fever, chills, blurry vision, double vision, loss of vision, chest pain, difficulty breathing, shortness of breath, back pain, night sweats, pain with urination, increased urinary frequency, increased urinary urgency, blood in his urine or stool, syncope or a near syncopal episode, recent trauma or falls, bowel incontinence, bladder incontinence, bowel retention, bladder retention, or any other complaints at this time. <MIRIAM Villanueva - Last Filed: 07/28/22 16:33> Onset (ago): minute(s) <MIRIAM Villanueva - Last Filed: 07/28/22 16:33> Severity: mild <MIRIAM Villanueva - Last Filed: 07/28/22 16:33> Severity scale (1-10): 2 <MIRIAM Villanueva - Last Filed: 07/28/22 16:33> Relieving factors: none <MIRIAM Villanueva - Last Filed: 07/28/22 16:33> Exacerbating factors: none <MIRIAM Villanueva Last Filed: 07/28/22 16:33> Associated symptoms: denies other symptoms <MIRIAM Villanueva - Last Filed: 07/28/22 16:33> Treatments prior to arrival: none <MIRIAM Villanueva - Last Filed: 07/28/22 16:33> Related Data Home medications: Previous Rx's Medication Instructions Recorded buprenorphine 4 mg-naloxone 1 mg 1 film sublingual DAILY@1300 #7 ea 02/06/22 sublingual film (Suboxone) capsaicin 0.025 % topical cream 1 appl topical TID PRN knee pain 02/06/22 #25 grams cholecalciferol (vitamin D3) 10 10 mcg PO DAILY #30 tabs 02/06/22 mcg (400 unit) tablet (Vitamin D3) clotrimazole 1 % topical cream 1 appl topical BID #1 applicator 02/06/22 cyanocobalamin (vitamin B-12) 100 100 mcg PO DAILY 30 days #30 tabs 02/06/22 mcg tablet (Vitamin B-12) ferrous sulfate 324 mg (65 mg 324 mg PO DAILY #30 tabs 02/06/22 iron) tablet,delayed release fluoxetine 20 mg capsule 40 mg PO DAILY 30 days #60 caps 02/06/22 folic acid 1 mg tablet 1 tab PO DAILY #30 tabs 02/06/22 multivitamin (Daily-Ty tablet) 1 tab PO DAILY #30 tabs 02/06/22 nicotine 21 mg/24 hr daily 21 mg transdermal DAILY #30 ea 02/06/22 transdermal patch prazosin 5 mg capsule 5 mg PO BEDTIME #30 caps 02/06/22 trazodone 50 mg tablet 50 mg PO BEDTIME PRN Insomnia #30 02/06/22 tabs buprenorphine 8 mg-naloxone 2 mg 1 film sublingual BID@0800,2000 3 03/09/22 sublingual film (Suboxone) days #6 ea olanzapine 15 mg tablet 15 mg PO BEDTIME #30 tabs 03/10/22 <MIRIAM Villanueva - Last Filed: 07/28/22 16:33> Allergies/adverse reactions: Allergies Allergy/AdvReac Type Severity Reaction Status Date / Time No Known Allergies Allergy Verified 01/16/22 22:10 [No Known Allergies*] <MIRIAM Villanueva - Last Filed: 07/28/22 16:33> Review of Systems Constitutional: Constitutional: Reports no additional constitutional complaints, Denies chills, Denies fever(s) and Denies night sweats <MIRIAM Villanueva Last Filed: 07/28/22 16:33> Eyes: Eyes: Reports no additional eye complaints, Denies blurry vision, Denies change in vision, Denies diplopia, Denies eye discharge, Denies loss of vision and Denies eye pain <MIRIAM Villanueva - Last Filed: 07/28/22 16:33> ENT: Denies dizziness <MIRIAM Villanueva Last Filed: 07/28/22 16:33> Cardiovascular: Cardiovascular: Reports no additional cardiovascular complaints, Denies chest pain, Denies lightheadedness, Denies Loss of Consciousness and Denies dyspnea <MIRIAM Villanueva Last Filed: 07/28/22 16:33> Respiratory: Respiratory: Reports no additional respiratory complaints and Denies dyspnea <MIRIAM Villanueva - Last Filed: 07/28/22 16:33> Gastrointestinal: Gastrointestinal: Reports no additional gastrointestinal complaints, Denies abdominal pain, Denies melena, Denies hematochezia, Denies change in bowel habits and Denies change in stool character <MIRIAM Villanueva - Last Filed: 07/28/22 16:33> Genitourinary: Genitourinary: Reports no additional male genitourinary complaints, Denies hematuria, Denies oliguria, Denies difficulty urinating, Denies dysuria, Denies urinary frequency, Denies urinary hesitancy, Denies urinary incontinence and Denies urinary urgency <MIRIAM Villanueva Last Filed: 07/28/22 16:33> Musculoskeletal: Musculoskeletal: Reports no additional musculoskeletal complaints, Denies numbness and Denies tingling <MIRIAM Villanueva Last Filed: 07/28/22 16:33> Neurologic: Denies dizziness, Denies loss of vision, Denies numbness and Denies tingling <MIRIAM Villanueva Last Filed: 07/28/22 16:33> Psychiatric: Psychiatric: Reports no additional psychiatric complaints and Reports suicidal ideation <MIRIAM Villanueva Last Filed: 07/28/22 16:33> Endocrine: Endocrine: Reports no additional endocrine complaints <MIRIAM Villanueva Last Filed: 07/28/22 16:33> Hematologic/Lymphatic: Hematologic/Lymphatic: Reports no additional hematologic/lymphatic complaints <MIRIAM Villanueva - Last Filed: 07/28/22 16:33> Allergic/Immunologic: Allergic/Immunologic: Reports no additional allergic/immunologic complaints <MIRIAM Villanueva - Last Filed: 07/28/22 16:33> [facility] Past Medical History Attestation statement: The following information was validated with the patient. <MIRIAM Villanueva - Last Filed: 07/28/22 16:33> Source: old records reviewed and nursing notes reviewed <MIRIAM Villanueva - Last Filed: 07/28/22 16:33> Medical History: Medical History Atypical bipolar disorder B12 deficiency Chronic post-traumatic stress disorder (PTSD) Chronic schizophrenia Cocaine use disorder Depressive disorder Heroin use Opioid use disorder, moderate, in early remission, on maintenance therapy, dependence <MIRIAM Villanueva - Last Filed: 07/28/22 16:33> Social History Social History: Social History Household Members: Significant Other Household Members Other:: plans to move in with sister after discharge Housing: Unknown / Unable to assess Housing Other:: pt plans on living with his sister after D/C Do you presently have visiting nurse or other home services: No Alcohol intake: current Alcohol intake frequency: a few times a week Patient Tobacco Use Status: Current everyday Tobacco user Tobacco use type: Cigarette Cigarette Packs Per Day: 0.5 Cigarettes Per Day: 10.0 Years Smoked: 20 e-Cigarette/Vaping Use: Never Used Second Hand Smoke Exposure: Yes Substance Use Type: Heroin Advance Directives: No Advance Directives Information Provided: No service: No Sexual orientation: Straight/Heterosexual <MIRIAM Villanueva - Last Filed: 07/28/22 16:33> Physical Exam ED Vital Signs: Vital Signs - 24 hr 07/28/22 10:11 07/28/22 17:35 Temperature 98.2 F 98.5 F Pulse Rate 91 85 Respiratory Rate 18 19 Blood Pressure 132/82 168/73 H Pulse Oximetry 100 96 Oxygen Delivery Method Room Air Room Air BMI result Body Mass Index 25.0 <MIRIAM Villanueva - Last Filed: 07/28/22 16:33> Vital Signs - 24 hr 12/24/22 10:11 07/28/22 17:35 Temperature 98.2 F 98.5 F Pulse Rate 91 85 Respiratory Rate 18 19 Blood Pressure 132/82 168/73 H Pulse Oximetry 100 96 Oxygen Delivery Method Room Air Room Air BMI result Body Mass Index 25.0 <Liv Singh NP - Last Filed: 07/28/22 23:25> Const General: cooperative, no acute distress, alert and awake <MIRIAM Villanueva - Last Filed: 07/28/22 16:33> Nutritional Appearance: well nourished <MIRIAM Villanueva - Last Filed: 07/28/22 16:33> Orientation/consciousness: patient oriented x3 <MIRIAM Villanueva - Last Filed: 07/28/22 16:33> Limitations: no limitations <MIRIAM Villanueva - Last Filed: 07/28/22 16:33> HENMT Head: Yes normal to inspection and Yes atraumatic <MIRIAM Villanueva - Last Filed: 07/28/22 16:33> Ears: hearing grossly normal bilaterally and external ears normal <MIRIAM Villanueva - Last Filed: 07/28/22 16:33> General nose exam: Normal external nose present, no nasal discharge noted and no epistaxis <MIRIAM Villanueva - Last Filed: 07/28/22 16:33> Face and sinus: Yes normal facial exam, No abrasion and No laceration <MIRIAM Villanueva - Last Filed: 07/28/22 16:33> Mouth: Normal oral and palatal mucosa present, no drooling and no muffled voice <MIRIAM Villanueva - Last Filed: 07/28/22 16:33> Eyes General: appearance normal, both eyes and all related structures <MIRIAM Villanueva - Last Filed: 07/28/22 16:33> Periorbital: periorbital findings normal <MIRIAM Villanueva - Last Filed: 07/28/22 16:33> Eyelids: Yes eyelids normal <MIRIAM Villanueva - Last Filed: 07/28/22 16:33> Conjunctivae: conjunctivae normal <MIRIAM Villanueva - Last Filed: 07/28/22 16:33> Pupils: Equal, round and reactive pupils present <Kayley Villanueva PA - Last Filed: 07/28/22 16:33> EOM: EOMs intact bilaterally <Kayley Villanueva MIRIAM - Last Filed: 07/28/22 16:33> Neck Neck: Yes normal visual inspection, Yes full ROM and Yes no lymphadenopathy <Kayley Villanueva CO - Last Filed: 07/28/22 16:33> Chest Chest palpation & inspection: normal inspection of the chest <Kayley Villanueva PA - Last Filed: 07/28/22 16:33> Resp Effort & Inspection: normal respiratory effort and able to speak in complete sentences <Kayley Villanueva CO - Last Filed: 07/28/22 16:33> Auscultation: clear to auscultation bilaterally <Kayley Villanueva CO - Last Filed: 07/28/22 16:33> Cardio Rate: regular rate <Kayley Villanueva CO - Last Filed: 07/28/22 16:33> Rhythm: regular rhythm <Kayley Villanueva CO - Last Filed: 07/28/22 16:33> GI Inspection: Yes normal to inspection <Kayley Villnaueva CO - Last Filed: 07/28/22 16:33> Palpation (GI): Soft to palpation, not firm, nontender, no guarding and not rigid <Kayley Villanueva CO - Last Filed: 07/28/22 16:33> Neuro General: patient oriented x3 and moves all extremities <Kayley Villanueva CO - Last Filed: 07/28/22 16:33> Cranial nerves: Yes Equal, round and reactive pupils present <Kayley Villanueva PA - Last Filed: 07/28/22 16:33> Cognition (Neuro): normal cognition <Kayley Villanueva PA - Last Filed: 07/28/22 16:33> Motor exam (neuro): 5/5 motor strength present throughout <Kayley Villanueva PA - Last Filed: 07/28/22 16:33> Sensory Exam: Normal double simultaneous stimulation for sensation <Kayley Villanueva PA - Last Filed: 07/28/22 16:33> Coordination: [id number] test normal <Kayley Villanueva PA - Last Filed: 07/28/22 16:33> Extrem General: Yes normal to inspection, Yes full ROM and Yes capillary refill normal <MIRIAM Villanueva - Last Filed: 07/28/22 16:33> Psych Appearance: grossly normal <MIRIAM Villanueva - Last Filed: 07/28/22 16:33> Mental Status: mental status grossly normal <MIRIAM Villanueva - Last Filed: 07/28/22 16:33> Affect: normal affect <MIRIAM Villanueva - Last Filed: 07/28/22 16:33> Attitude: cooperative <MIRIAM Villanueva - Last Filed: 07/28/22 16:33> Thought process: Normal thought process present <MIRIAM Villanueva - Last Filed: 07/28/22 16:33> Thought content: Normal thought content present <MIRIAM Villanueva - Last Filed: 07/28/22 16:33> Insight: Good insight present (Psych) <MIRIAM Villanueva - Last Filed: 07/28/22 16:33> Course Course Course Narrative: 23:15 patient is withdrawing, has nausea and vomiting. Unable to tolerate p.o. fluids or medications. Plan is for IM medications for nausea, vomiting and anxiety. This is not a behavioral restraint, this patient cannot tolerate p.o. fluids and we cannot start an IV on this patient in the psychiatric unit. <Liv Singh NP - Last Filed: 07/28/22 23:25> Medications Administered Discontinued Medications Generic Name Dose Route Start Last Admin Trade Name Freq PRN Reason Stop Dose Admin Lorazepam 2 mg 07/28/22 19:51 07/28/22 20:02 Lorazepam 1 Mg Tablet PO 07/28/22 19:52 2 mg ONCE ONE Administration <MIRIAM Villanueva - Last Filed: 07/28/22 16:33> Medications Administered Discontinued Medications Generic Name Dose Route Start Last Admin Trade Name Freq PRN Reason Stop Dose Admin Lorazepam 2 mg 07/28/22 19:51 07/28/22 20:02 Lorazepam 1 Mg Tablet PO 07/28/22 19:52 2 mg ONCE ONE Administration <Liv Singh NP - Last Filed: 07/28/22 23:25> Medical Decision Making Medical Decision Making MDM Narrative: Patient is a 57 year old assigned male at with a history of opiate use presenting to the emergency department today with vague SI. Patient's physical exam was unremarkable. Patient's blood work was unremarkable. I explained my physical exam findings as well as all test results to the patient. I answered all questions asked by the patient. Patient was evaluated by the CARE team who recommended discharge however, the patient became adamant he would kill himself if he was discharged. Patient to stay in the department overnight and be re-evaluated in the morning. Patient verbalized agreement and understanding with this treatment plan and re-evaluation in the morning. <MIRIAM Villanueva - Last Filed: 07/28/22 16:33> Differential Diagnosis Differential Diagnoses: The differential diagnosis associated with the presentation includes <MIRIAM Villanueva - Last Filed: 07/28/22 16:33> SI, depression <MIRIAM Villanueva - Last Filed: 07/28/22 16:33> Lab Data MDM Lab Attestation statement: I reviewed the patient's lab results. <MIRIAM Villanueva - Last Filed: 07/28/22 16:33> Result Diagrams: : 07/28/22 17:31 07/28/22 12:13 <MIRIAM Villanueva - Last Filed: 07/28/22 16:33> Labs: Lab Results 07/28/22 07/28/22 07/28/22 Range/Units 11:02 12:13 16:50 WBC (4.8-10.8) X10*3/uL RBC (4.60-5.80) X10*6/uL Hgb (14.0-18.0) g/dl Hct (42.0-52.0) % MCV (80.0-98.0) fL MCH (27.0-33.0) pg MCHC (31.0-36.0) g/dl RDW (11.0-16.0) % Plt Count (160-400) X10*3/uL MPV (9.4-12.4) fL Immature Gran % (Auto) (0.0-0.4) % Neut % (Auto) (45-73) % Lymph % (Auto) (20-40) % [place] % (Auto) (2-11) % Eos % (Auto) (0-4) % Baso % (Auto) (0-2) % Lymph # (Auto) (1.2-4.9) X10*3/uL [place] # (Auto) (0.1-1.2) X10*3/uL Eos # (Auto) (0.0-0.4) X10*3/uL Baso # (Auto) (0.0-0.2) X10*3/uL Abs Immat Gran (auto) (0.00-0.03) X10*3/uL Absolute Neuts (auto) (2.0-8.3) x10*3/uL Absolute Nucleated RBC (0.0-0.012) X10*3/uL Nucleated RBC % (auto) (0.0-0.2) /100WBC Sodium 139 (135-145) mmol/L Potassium 4.0 (3.3-5.1) mmol/L Chloride 107 (96-108) mmol/L Carbon Dioxide 24 (22-29) mmol/L Anion Gap 12 (12-20) BUN 17 H (9-16) mg/dL Creatinine 0.84 (0.5-1.4) mg/dL Estim Creat Clear Calc 96.1 Estimated GFR > 60 Random Glucose 93 (60-115) mg/dL Calcium 9.2 D (8.4-10.2) mg/dL Total Bilirubin 1.0 (0.0-1.0) mg/dL AST 20 (5-37) U/L ALT 16 (0-40) U/L Alkaline Phosphatase 71 (39-117) U/L Total Protein 6.7 (6.5-8.0) g/dL Albumin 3.7 (3.5-5.0) g/dL Urine Color Yellow Urine Appearance Clear Urine pH 8.0 (5.0-9.0) Ur Specific [place] 1.020 (1.005-1.025) Urine Protein Negative (Neg-Trace) mg/dL Urine Glucose (UA) Negative (Negative) mg/dL Urine Ketones 15 (Negative) mg/dL Urine Blood Negative (Negative) Urine Nitrite Negative (Negative) Ur Leukocyte Esterase Negative (Negative) Salicylates < 5.0 L (15-30) mg/dL Urine Opiates Screen (Not Detect) Urine Fentanyl Screen (Not Detect) Acetaminophen < 1 (<30) mcg/mL Ur Barbiturates Screen (Not Detect) Ur Phencyclidine Scrn (Not Detect) Ur Amphetamines Screen (Not Detect) U Benzodiazepines Scrn (Not Detect) Urine Cocaine Screen (Not Detect) U Marijuana (THC) Screen (Not Detect) Ethyl Alcohol < 10 mg/dL COVID-19 ([place]) Negative (Negative) COVID-19 Clin Com See Note 07/28/22 07/28/22 Range/Units 16:50 17:31 WBC 8.6 (4.8-10.8) X10*3/uL RBC 5.23 (4.60-5.80) X10*6/uL Hgb 15.3 (14.0-18.0) g/dl Hct 44.8 (42.0-52.0) % MCV 85.7 (80.0-98.0) fL MCH 29.3 (27.0-33.0) pg MCHC 34.2 (31.0-36.0) g/dl RDW 12.5 (11.0-16.0) % Plt Count 262 (160-400) X10*3/uL MPV 10.0 (9.4-12.4) fL Immature Gran % (Auto) 0.3 (0.0-0.4) % Neut % (Auto) 69.7 (45-73) % Lymph % (Auto) 19.9 L (20-40) % [place] % (Auto) 9.0 (2-11) % Eos % (Auto) 0.8 (0-4) % Baso % (Auto) 0.3 (0-2) % Lymph # (Auto) 1.7 (1.2-4.9) X10*3/uL [place] # (Auto) 0.8 (0.1-1.2) X10*3/uL Eos # (Auto) 0.1 (0.0-0.4) X10*3/uL Baso # (Auto) 0.0 (0.0-0.2) X10*3/uL Abs Immat Gran (auto) 0.03 (0.00-0.03) X10*3/uL Absolute Neuts (auto) 6.0 (2.0-8.3) x10*3/uL Absolute Nucleated RBC 0.000 (0.0-0.012) X10*3/uL Nucleated RBC % (auto) 0.0 (0.0-0.2) /100WBC Sodium (135-145) mmol/L Potassium (3.3-5.1) mmol/L Chloride (96-108) mmol/L Carbon Dioxide (22-29) mmol/L Anion Gap (12-20) BUN (9-16) mg/dL Creatinine (0.5-1.4) mg/dL Estim Creat Clear Calc Estimated GFR Random Glucose (60-115) mg/dL Calcium (8.4-10.2) mg/dL Total Bilirubin (0.0-1.0) mg/dL AST (5-37) U/L ALT (0-40) U/L Alkaline Phosphatase (39-117) U/L Total Protein (6.5-8.0) g/dL Albumin (3.5-5.0) g/dL Urine Color Urine Appearance Urine pH (5.0-9.0) Ur Specific [place] (1.005-1.025) Urine Protein (Neg-Trace) mg/dL Urine Glucose (UA) (Negative) mg/dL Urine Ketones (Negative) mg/dL Urine Blood (Negative) Urine Nitrite (Negative) Ur Leukocyte Esterase (Negative) Salicylates (15-30) mg/dL Urine Opiates Screen POSITIVE H (Not Detect) Urine Fentanyl Screen POSITIVE H (Not Detect) Acetaminophen (<30) mcg/mL Ur Barbiturates Screen Not Detected (Not Detect) Ur Phencyclidine Scrn Not Detected (Not Detect) Ur Amphetamines Screen Not Detected (Not Detect) U Benzodiazepines Scrn Not Detected (Not Detect) Urine Cocaine Screen POSITIVE H (Not Detect) U Marijuana (THC) Screen Not Detected (Not Detect) Ethyl Alcohol mg/dL COVID-19 ([place]) (Negative) COVID-19 Clin Com <MIRIAM Villanueva - Last Filed: 07/28/22 16:33> Lab Results 07/28/22 07/28/22 07/28/22 Range/Units 11:02 12:13 16:50 WBC (4.8-10.8) X10*3/uL RBC (4.60-5.80) X10*6/uL Hgb (14.0-18.0) g/dl Hct (42.0-52.0) % MCV (80.0-98.0) fL MCH (27.0-33.0) pg MCHC (31.0-36.0) g/dl RDW (11.0-16.0) % Plt Count (160-400) X10*3/uL MPV (9.4-12.4) fL Immature Gran % (Auto) (0.0-0.4) % Neut % (Auto) (45-73) % Lymph % (Auto) (20-40) % [place] % (Auto) (2-11) % Eos % (Auto) (0-4) % Baso % (Auto) (0-2) % Lymph # (Auto) (1.2-4.9) X10*3/uL [place] # (Auto) (0.1-1.2) X10*3/uL Eos # (Auto) (0.0-0.4) X10*3/uL Baso # (Auto) (0.0-0.2) X10*3/uL Abs Immat Gran (auto) (0.00-0.03) X10*3/uL Absolute Neuts (auto) (2.0-8.3) x10*3/uL Absolute Nucleated RBC (0.0-0.012) X10*3/uL Nucleated RBC % (auto) (0.0-0.2) /100WBC Sodium 139 (135-145) mmol/L Potassium 4.0 (3.3-5.1) mmol/L Chloride 107 (96-108) mmol/L Carbon Dioxide 24 (22-29) mmol/L Anion Gap 12 (12-20) BUN 17 H (9-16) mg/dL Creatinine 0.84 (0.5-1.4) mg/dL Estim Creat Clear Calc 96.1 Estimated GFR > 60 Random Glucose 93 (60-115) mg/dL Calcium 9.2 D (8.4-10.2) mg/dL Total Bilirubin 1.0 (0.0-1.0) mg/dL AST 20 (5-37) U/L ALT 16 (0-40) U/L Alkaline Phosphatase 71 (39-117) U/L Total Protein 6.7 (6.5-8.0) g/dL Albumin 3.7 (3.5-5.0) g/dL Urine Color Yellow Urine Appearance Clear Urine pH 8.0 (5.0-9.0) Ur Specific [place] 1.020 (1.005-1.025) Urine Protein Negative (Neg-Trace) mg/dL Urine Glucose (UA) Negative (Negative) mg/dL Urine Ketones 15 (Negative) mg/dL Urine Blood Negative (Negative) Urine Nitrite Negative (Negative) Ur Leukocyte Esterase Negative (Negative) Salicylates < 5.0 L (15-30) mg/dL Urine Opiates Screen (Not Detect) Urine Fentanyl Screen (Not Detect) Acetaminophen < 1 (<30) mcg/mL Ur Barbiturates Screen (Not Detect) Ur Phencyclidine Scrn (Not Detect) Ur Amphetamines Screen (Not Detect) U Benzodiazepines Scrn (Not Detect) Urine Cocaine Screen (Not Detect) U Marijuana (THC) Screen (Not Detect) Ethyl Alcohol < 10 mg/dL COVID-19 ([place]) Negative (Negative) COVID-19 Clin Com See Note 07/28/22 07/28/22 Range/Units 16:50 17:31 WBC 8.6 (4.8-10.8) X10*3/uL RBC 5.23 (4.60-5.80) X10*6/uL Hgb 15.3 (14.0-18.0) g/dl Hct 44.8 (42.0-52.0) % MCV 85.7 (80.0-98.0) fL MCH 29.3 (27.0-33.0) pg MCHC 34.2 (31.0-36.0) g/dl RDW 12.5 (11.0-16.0) % Plt Count 262 (160-400) X10*3/uL MPV 10.0 (9.4-12.4) fL Immature Gran % (Auto) 0.3 (0.0-0.4) % Neut % (Auto) 69.7 (45-73) % Lymph % (Auto) 19.9 L (20-40) % [place] % (Auto) 9.0 (2-11) % Eos % (Auto) 0.8 (0-4) % Baso % (Auto) 0.3 (0-2) % Lymph # (Auto) 1.7 (1.2-4.9) X10*3/uL [place] # (Auto) 0.8 (0.1-1.2) X10*3/uL Eos # (Auto) 0.1 (0.0-0.4) X10*3/uL Baso # (Auto) 0.0 (0.0-0.2) X10*3/uL Abs Immat Gran (auto) 0.03 (0.00-0.03) X10*3/uL Absolute Neuts (auto) 6.0 (2.0-8.3) x10*3/uL Absolute Nucleated RBC 0.000 (0.0-0.012) X10*3/uL Nucleated RBC % (auto) 0.0 (0.0-0.2) /100WBC Sodium (135-145) mmol/L Potassium (3.3-5.1) mmol/L Chloride (96-108) mmol/L Carbon Dioxide (22-29) mmol/L Anion Gap (12-20) BUN (9-16) mg/dL Creatinine (0.5-1.4) mg/dL Estim Creat Clear Calc Estimated GFR Random Glucose (60-115) mg/dL Calcium (8.4-10.2) mg/dL Total Bilirubin (0.0-1.0) mg/dL AST (5-37) U/L ALT (0-40) U/L Alkaline Phosphatase (39-117) U/L Total Protein (6.5-8.0) g/dL Albumin (3.5-5.0) g/dL Urine Color Urine Appearance Urine pH (5.0-9.0) Ur Specific [place] (1.005-1.025) Urine Protein (Neg-Trace) mg/dL Urine Glucose (UA) (Negative) mg/dL Urine Ketones (Negative) mg/dL Urine Blood (Negative) Urine Nitrite (Negative) Ur Leukocyte Esterase (Negative) Salicylates (15-30) mg/dL Urine Opiates Screen POSITIVE H (Not Detect) Urine Fentanyl Screen POSITIVE H (Not Detect) Acetaminophen (<30) mcg/mL Ur Barbiturates Screen Not Detected (Not Detect) Ur Phencyclidine Scrn Not Detected (Not Detect) Ur Amphetamines Screen Not Detected (Not Detect) U Benzodiazepines Scrn Not Detected (Not Detect) Urine Cocaine Screen POSITIVE H (Not Detect) U Marijuana (THC) Screen Not Detected (Not Detect) Ethyl Alcohol mg/dL COVID-19 ([place]) (Negative) COVID-19 Clin Com <Liv Singh NP - Last Filed: 07/28/22 23:25> Discharge Plan Discharge Clinical Impression: Chronic post-traumatic stress disorder (PTSD) <MIRIAM Villanueva - Last Filed: 07/28/22 16:33> Patient Disposition: Still a Patient <MIRIAM Villanueva - Last Filed: 07/28/22 16:33> Instructions: Post Traumatic Stress Disorder (ED) <MIRIAM Villanueva - Last Filed: 07/28/22 16:33> Additional Instructions: Follow up with your primary care provider. Return to the emergency department immediately if your symptoms worsen or if you develop any dizziness, shortness of breath, difficulty breathing, chest pain, blurry vision, loss of vision, nausea, vomiting, abdominal pain, fever, chills, back pain, or any other complaints. <MIRIAM Villanueva - Last Filed: 07/28/22 16:33> Prescriptions: No Action trazodone 50 mg Tablet 50 mg PO BEDTIME PRN (Reason: Insomnia) Qty: 30 0RF capsaicin 0.025 % Cream 1 appl topical TID PRN (Reason: knee pain) Qty: 25 0RF Protocol: Apply to: Apply to: R knee clotrimazole 1 % Cream 1 appl topical BID Qty: 1 0RF Protocol: Apply to: Apply to: Groin ferrous sulfate 324 mg (65 mg iron) Tablet,Delayed Release (Dr/Ec) 324 mg PO DAILY Qty: 30 0RF multivitamin [Daily-Ty] Tablet 1 tab PO DAILY Qty: 30 0RF cyanocobalamin (vitamin B-12) [Vitamin B-12] 100 mcg Tablet 100 mcg PO DAILY 30 Days Qty: 30 0RF prazosin 5 mg capsule 5 mg PO BEDTIME Qty: 30 0RF nicotine 21 mg/24 hr Patch 24 Hour 21 mg transdermal DAILY Qty: 30 0RF folic acid 1 mg tablet 1 tab PO DAILY Qty: 30 0RF fluoxetine 20 mg Capsule 40 mg PO DAILY 30 Days Qty: 60 0RF cholecalciferol (vitamin D3) [Vitamin D3] 10 mcg (400 unit) Tablet 10 mcg PO DAILY Qty: 30 0RF buprenorphine-naloxone [Suboxone] 4-1 mg Film 1 film sublingual DAILY@1300 Qty: 7 0RF olanzapine 15 mg tablet 15 mg PO BEDTIME Qty: 30 0RF buprenorphine-naloxone [Suboxone] 8-2 mg Film 1 film sublingual BID@0800,2000 3 Days Qty: 6 0RF <MIRIAM Villanueva - Last Filed: 07/28/22 16:33> Referrals: [facility] [place] Family Medicine [Provider Group] (Call to establish and follow up with a primary care provider. If you already have a primary care provider, please follow up with them. ) [facility] Primary Care, [place] [Provider Group] (Call to establish and follow up with a primary care provider. If you already have a primary care provider, please follow up with them. ) [facility] Primary Care,[facility] [Provider Group] (Call to establish and follow up with a primary care provider. If you already have a primary care provider, please follow up with them. ) <MIRIAM Villanueva - Last Filed: 07/28/22 16:33> Interventions: [place]-Suicide Risk Severity Scale Last Done: 07/28/22 10:18 <MIRIAM Villanueva - Last Filed: 07/28/22 16:33> Print Language: Faroese <MIRIAM Villanueva - Last Filed: 07/28/22 16:33>
--- NOTE | 2022-07-28 11:14 | MHC.CARE ---
Care Team completed [facility] smart sheet.
[2022-07-28 11:46] LABS: COVID-19 Test Negative (Negative); IDNOW Serial# 16C4AD1C
[2022-07-28 12:45] LABS: Acetaminophen LAB < 1 mcg/mL (<30)
[2022-07-28 12:59] LABS: Alanine Aminotransferase 16 U/L (0-40); Albumin Level 3.7 g/dL (3.5-5.0); Alkaline Phosphatase 71 U/L (39-117); Anion Gap 12 (12-20); Aspartate Amino Transferase 20 U/L (5-37); Blood Urea Nitrogen 17 mg/dL (9-16); Calcium 9.2 mg/dL (8.4-10.2); Carbon Dioxide 24 mmol/L (22-29); Chloride 107 mmol/L (96-108); Creatinine Clr Calc Pharmacy 96.1; Estimated Glomerular Filt Rate > 60; Ethanol < 10 mg/dL; Glucose Random 93 mg/dL (60-115); Salicylate < 5.0 mg/dL (15-30); Sodium 139 mmol/L (135-145); Total Protein 6.7 g/dL (6.5-8.0)
--- NOTE | 2022-07-28 14:37 | MHC.CARE ---
Pt in BH pod in room 5 is declining discharge and making SI statements. Plan discussed with Kayley PINEDA. Pt is to be re-assessed in the morning.
[2022-07-28 17:35] VITALS: BP 168/73; PULSE 85; RESP 19; TEMP 36.9; O2SAT 96
[2022-07-28 17:35] LABS: MANUAL DIFF FLAG NO
[2022-07-28 17:39] LABS: Appearance Urine Clear; Color Urine Yellow; Glucose Urine UA Negative (Negative); Leukocyte Esterase Urine Negative (Negative); Nitrite Urine Negative (Negative); Urine Blood Negative (Negative); Urine Ketones 15 mg/dL (Negative); Urine Protein Negative (Neg-Trace)
[2022-07-28 17:46] LABS: Amphetamine Screen Urine Not Detected (Not Detect); Barbiturates, Urine Not Detected (Not Detect); Benzodiazepines Screen Urine Not Detected (Not Detect); Cannabinoid Screen Urine Not Detected (Not Detect); Cocaine Screen Urine POSITIVE (Not Detect); Fentanyl, urine POSITIVE (Not Detect); Opiate Screen Urine POSITIVE (Not Detect); Phencyclidine Screen Urine Not Detected (Not Detect)
[2022-07-28 17:47] LABS: Basophils Percent Auto 0.3 % (0-2); Eosinophils Absolute Auto 0.1 X10*3/uL (0.0-0.4); Eosinophils Percent Auto 0.8 % (0-4); Hematocrit 44.8 % (42.0-52.0); Hemoglobin 15.3 g/dl (14.0-18.0); Imm Gran Abs Auto 0.03 X10*3/uL (0.00-0.03); Imm Gran Pct Auto 0.3 % (0.0-0.4); Lymphocytes Absolute Auto 1.7 X10*3/uL (1.2-4.9); Lymphocytes Percent Auto 19.9 % (20-40); Mean Corpuscular HGB Conc 34.2 g/dl (31.0-36.0); Mean Corpuscular Hemoglobin 29.3 pg (27.0-33.0); Mean Corpuscular Volume 85.7 fL (80.0-98.0); Monocytes Absolute Auto 0.8 X10*3/uL (0.1-1.2); Neutrophils Percent Auto 69.7 % (45-73); Platelet Count 262 X10*3/uL (160-400); Red Blood Count 5.23 X10*6/uL (4.60-5.80); Red Cell Distribution Width 12.5 % (11.0-16.0); White Blood Count 8.6 X10*3/uL (4.8-10.8)
--- NOTE | 2022-07-28 23:27 | PC.NURSE ---
Ativan 2 mg po was administered at 2001, patient unable to hold medication due to vomiting, patient is found vomiting intermittently, provider notified/ordered haldol 5 mg IM/administered at 2325/pending effect, will continue to monitor.
--- NOTE | 2022-07-29 06:08 | PC.NURSE ---
Patient slept through the night, + effect from Haldol 5 mg IM administered at 2326, no distress observed/reported except intermittent vomiting prior to Haldol treatment, patient was cleared for discharge by Eve but made conditional suicidal statement, patient will be revaluated by N in the morning, med rec completed/patient is off his medication for months, will continue to monitor.
--- NOTE | 2022-07-29 16:47 | MHC.CARE ---
Care Team completed [facility] smart sheet.
[2022-07-29 17:20] VITALS: BP 183/97; PULSE 59; RESP 16; TEMP 38.2; O2SAT 99
--- NOTE | 2022-07-29 17:43 | PC.NURSE ---
pt vomitted large amt of bile on the floor, febrile and medicated w apap, re assessed by MIRIAM Peck, medicated w Haldol and zofran im, haldol had worked well for the pt last night, pt is alert, c/o withdrawl from heroin, plan to swab for covid/flu/rsv and chest xray
[2022-07-29 18:47] LABS: Influenza A PCR NEGATIVE (Negative); Influenza B PCR NEGATIVE (Negative); Resp Syncy Virus RNA Qual PCR NEGATIVE (Negative); SARS COV2 PCR INHOUSE NEGATIVE (Negative)
[2022-07-29 20:38] VITALS: BP 170/98; PULSE 103; RESP 17; TEMP 37.9; O2SAT 96
[2022-07-30 03:54] VITALS: BP 160/106; PULSE 98; RESP 17; TEMP 37.2; O2SAT 100
--- NOTE | 2022-07-30 06:36 | PC.NURSE ---
Patient slept intermittently through the night, no episode of vomiting however patient was observed sneezing and spiting on multiple occasion, patient is cleared by [facility] for discharge however due to withdrawal symptoms patient is still in ED POD, patient is not eating food but fluid intake is great, patient does not have any discharge plan, VSS, will continue to monitor.
--- NOTE | 2022-07-30 11:30 | PC.NURSE ---
patient had 1 episode of vomiting, ED provider made aware. given zofran with + effect
[2022-07-30 16:08] VITALS: BP 173/96; PULSE 65; RESP 18; TEMP 37.3; O2SAT 99
[2022-07-31 00:34] VITALS: BP 163/109; PULSE 79; RESP 17; TEMP 37.4; O2SAT 100
--- NOTE | 2022-07-31 05:27 | PC.NURSE ---
Patient slept most part of the night, no distress observed/reported at this time, patient is cleared by crises for discharge twice, provider is not in agreement with discharge, patient may be reevaluated by the crises, behavior non concerning, fluid intake appropriate but food intake poor, VSS, will continue to monitor.
--- NOTE | 2022-07-31 09:03 | MHC.RECOVRN ---
Met with pt in [facility] to discuss withdrawal symptoms. Pt reports using heroin, 1-3 bundles daily, IN. Last use WAFER SLICER on 07/28 am. Pt reporting hot/cold flashes and stomach cramping. Pt appears very mildly diaphoretic, no lacrimation, no goosebumps, no rhinorrhea. Pt is requesting to restart Suboxone, has been to the [facility] in the past. Pt received 8 mg film on 07/30 am, reports it helped a little. Spoke with Alix Mckeon APRN. Plan to administer 8 mg film now and monitor for effectiveness. Appt made for 08/03/22 at 3PM at [facility] to continue care. RN and provider aware.
[2022-07-31] MEDS: Buprenorphine/Naloxone 8/2 mg FILM 1 FILM SUBLINGUAL (09:07)
--- NOTE | 2022-07-31 11:57 | MHC.RECOVRN ---
Alix Mckeon, CORPORATE SALES REPRESENTATIVE, to send Suboxone prescription to [facility] to bridge pt to appt on Saturday.
--- NOTE | 2022-07-31 13:37 | MHC.RECOVRN ---
After speaking with CARE Team pt decided to pursue ATS. Referral faxed to [facility] pt on phone completing intake.
--- NOTE | 2022-07-31 15:28 | MHC.RECOVRN ---
Pt accepted to [facility] for 6PM admission.
--- NOTE | 2022-07-31 17:37 | MHC.CARE ---
Herbert ordered for transport to [facility]. Pt discharged to waiting room to await ride.
== END 2022-07-31 17:35 | disposition other institution (70) ==
PROVIDERS: Nurse Practitioner Family; Physician Assistant Medical; Emergency Provider Student in an Organized Health Care Education/Training Program
DX: F43.12 Post-traumatic stress disorder, chronic (principal); R45.851 Suicidal ideations; R11.2 Nausea with vomiting, unspecified; Z20.828 Contact with and (suspected) exposure to other viral communicable diseases; F19.10 Other psychoactive substance abuse, uncomplicated; F41.9 Anxiety disorder, unspecified; F11.20 Opioid dependence, uncomplicated; F25.0 Schizoaffective disorder, bipolar type; F17.210 Nicotine dependence, cigarettes, uncomplicated; Z79.899 Other long term (current) drug therapy
CPT/HCPCS: 0241U; 36415; 71045; 80053; 80143; 80179; 80307; 81003; 82077; 85025; 87635; 96372; 96374; 99285; J2405

== ENCOUNTER 2022-08-31 12:12 | Emergency (ER) | payer MEDICAID, SELFPAY ==
[2022-08-31 12:21] VITALS: BP 135/86; PULSE 89; RESP 24; TEMP 36.9; O2SAT 100; BMI 32.5
--- NOTE | 2022-08-31 12:22 | PC.NURSE ---
security at bedside to search pt for contraband. pt not cooperative to pack changer at this time.
--- NOTE | 2022-08-31 13:38 | PC.NURSE ---
pt here for erratic behavior in community, alert and oriented x3 on arrival and throughout ed stay, pt is frequently ambulatory requiring redirection, has steady gait. ambulated to bathroom multiple times, escorted back by security without incident. frequently going into pt refridgerator and taking juices, tolerating po without issue. pt frequently asking to leave, ambulating to door w steady gait. denies any si/hi. provider aware of pt elopement.
--- NOTE | 2022-08-31 14:15 | ED.ALCOHOL ---
HPI - Alcohol General Chief Complaint: ETOH/Substance Use Stated Complaint: ETOH use per EMS (security requested on arrival) Time Seen by Provider: 08/31/22 12:47 Related Data Home Medications Medication Instructions Recorded Confirmed buprenorphine 8 mg-naloxone 2 mg 2 strip sublingual DAILY 07/30/22 07/30/22 sublingual film (Suboxone) Allergies Allergy/AdvReac Type Severity Reaction Status Date / Time No Known Allergies Allergy Verified 01/16/22 22:10 [No Known Allergies*] PMF Past Medical History Medical History Atypical bipolar disorder B12 deficiency Chronic post-traumatic stress disorder (PTSD) Chronic schizophrenia Cocaine use disorder Depressive disorder Heroin use Opioid use disorder, moderate, in early remission, on maintenance therapy, dependence Social History Social History Household Members: Significant Other Household Members Other:: plans to move in with sister after discharge Housing: Unknown / Unable to assess Housing Other:: pt plans on living with his sister after D/C Do you presently have visiting nurse or other home services: No Alcohol intake: current Alcohol intake frequency: a few times a week Patient Tobacco Use Status: Current everyday Tobacco user Tobacco use type: Cigarette Cigarette Packs Per Day: 0.5 Cigarettes Per Day: 10.0 Years Smoked: 20 e-Cigarette/Vaping Use: Never Used Second Hand Smoke Exposure: Yes Substance Use Type: Heroin Advance Directives: No Advance Directives Information Provided: No service: No Sexual orientation: Straight/Heterosexual Physical Exam ED Vital Signs: Vital Signs - 24 hr 08/31/22 12:21 Temperature 98.4 F Pulse Rate 89 Respiratory Rate 24 H Blood Pressure 135/86 Pulse Oximetry 100 Oxygen Delivery Method Room Air BMI result Body Mass Index 32.5 Discharge Plan Discharge Clinical Impression: Chronic post-traumatic stress disorder (PTSD) Patient Disposition: Elopement Prescriptions: No Action buprenorphine-naloxone [Suboxone] 8-2 mg film 2 strip sublingual DAILY Interventions: [place]-Suicide Risk Severity Scale Last Done: 08/31/22 13:41 ED Discharge Assessment Last Done: 08/31/22 13:41 Discharge Date/Time: 08/31/22 13:42
== END 2022-08-31 13:42 | disposition left against medical advice (07) ==
PROVIDERS: Emergency Provider Student in an Organized Health Care Education/Training Program
DX: F43.12 Post-traumatic stress disorder, chronic (principal); F19.10 Other psychoactive substance abuse, uncomplicated; F11.20 Opioid dependence, uncomplicated; F25.0 Schizoaffective disorder, bipolar type; F17.210 Nicotine dependence, cigarettes, uncomplicated
CPT/HCPCS: 99283

== ENCOUNTER 2022-10-10 16:53 | Emergency (ER) | payer MEDICAID, SELFPAY ==
--- NOTE | ~2022-10-10 | CT_ITS ---
EXAMINATION: CT BRAIN, CT CERVICAL SPINE, CT CHEST, ABDOMEN PELVIS WITHOUT CONTRAST. CLINICAL INFORMATION: Trauma. COMPARISON: CT brain and cervical spine 10/22/2021 TECHNIQUE: 5 mm thin axial and reformatted 2 mm thin sagittal and coronal images of brain were obtained. Axial 3 mm thin and reformatted 2 mm thin sagittal and coronal images of cervical spine were obtained. DLP [id number]. Lastly axial 5 mm thin and reformatted 3 mm thin sagittal and coronal images of chest, abdomen and pelvis were obtained without contrast. DLP 1623. This CT examination was performed using dose optimization technique as appropriate, variously including the following: Automated exposure control Adjustment of MA and/or KV according to patient size(this includes techniques or standardized protocols for targeted exams where dose is matched to indication/reason for exam; extremities or head. Use of iterative reconstruction techniques. FINDINGS: Brain: There is no acute intra-axial, extra-axial bleed, masses or midline shift. There is no acute infarction in evolution. There is no edema. The subramanian to white matter difference is maintained normal. The lateral ventricles are symmetrical in size and configuration without enlargement. Bone windows reveal no calvarial abnormality. There is no scalp soft tissue abnormality. Bilateral paranasal sinuses and mastoid air cells are well-aerated. Cervical spine: There is mild straightening of cervical lordosis. The vertebral heights and alignment is normal. There is unfused posterior C1 arch There is loss of C5-C6, C6-C7 disc heights with ventral spondylosis. The craniovertebral junction and the C1-C2 alignment is normal. No visible acute fracture, dislocation or subluxation seen. Mild uncovertebral hypertrophic changes results in mild narrowing of left C5-C6 neural foramina. In addition there is left posterior annular calcification. No visible acute fracture, dislocation or subluxation seen. The prevertebral and paravertebral soft tissues are normal. The lung apices are widely patent. CHEST: There are emphysematous changes of lungs with small cystic bullous changes in both upper lobes and adjacent to the mediastinum. No consolidation or contusion seen. There is no pleural effusion, thickening or pneumothorax. The thyroid lobes are symmetrical and normal. The central trachea and the bronchi are widely patent. Heart size and the great vessels are normal caliber. There is no pedicle effusion. The axilla and chest wall appears unremarkable. No bony abnormality seen. Postsurgical changes are seen in the left shoulder. ABDOMEN AND PELVIS: The liver is normal size, shape and position. No focal lesion or intrahepatic ductal dilatation. No laceration. Visualized spleen, pancreas and bilateral adrenal glands unremarkable. There are no radiopaque gallstones. There are small multiple bilateral radiopaque renal calculi and right renal cysts but no hydronephrosis seen. The bowel gas pattern is nonspecific. No free air or free fluid seen. No free air or free fluid seen. Imaging to the pelvis reveals unremarkable urinary bladder. The prostate gland is normal size with central gland calcification. There is no hernia. Bone windows reveal no aggressive lytic or sclerotic process. There is a disc prosthesis at the L5-S1 disc level. CT/CT cervical spine wo IV con IMPRESSION: No acute intracranial process seen. No acute fracture, dislocation or subluxation in cervical spine. Degenerative changes C5-C6 disc level with left para midline annular calcification. Unremarkable CT chest, abdomen pelvis. Bilateral nonobstructive renal calculi.
--- NOTE | ~2022-10-10 | XR_ITS ---
EXAMINATION: XR CHEST CLINICAL INFORMATION: Question chest trauma COMPARISON: July 29, 2022 and January 24, 2022 TECHNIQUE: AP portable view of the chest was obtained. FINDINGS: There is no evidence of acute parenchymal disease, pneumothorax, or pleural effusion. Heart normal size. No evidence of pulmonary edema. Vertical linear artifact is seen about the left chest. Patient is status post left shoulder surgery with tacks are noted. XR/XR chest 1V IMPRESSION: No acute disease.
--- NOTE | 2022-10-10 17:04 | ED.GENADULT ---
HPI - General Adult General Chief complaint: ETOH/Substance Use Stated complaint: DISORIENTED S/P TAKING PCP,[facility] PER [facility] Time Seen by Provider: 10/10/22 16:56 Source: EMS and police Mode of arrival: EMS Limitations: altered mental status History of Present Illness HPI narrative: This is a 60-year-old male with unknown medical history presents to the emergency department via EMS with police on board for suspected substance abuse. Patient was [place] [address] running his grocery cart into vehicles, with erratic behavior. Patient arrives uncooperative, hitting, not following commands, agitated, trying to jump out of the EMS stretcher, unsteady on feet. Noted to have abrasions on head however there is no reported trauma by EMS or police. Unable to obtain a history or review of systems from patient secondary to altered mental status likely secondary to substance abuse. Immediately on patient's arrival medication restraints were ordered. 10 mg of Haldol, 2 mg of Ativan and 50 mg of Benadryl IM were ordered for Behaviora restraints, patient harm to self and others. Security, police, EMS and nursing at the bedside. Related Data Allergies Allergy/AdvReac Type Severity Reaction Status Date / Time Unable to Assess Allergy Unverified 10/10/22 16:56 Review of Systems Review of Systems: Yes Unobtainable due to mental status PMFSH Past Medical History Attestation statement: The following information was validated with the patient. Source: old records reviewed and nursing notes reviewed Social History Social History Advance Directives: No Advance Directives Information Provided: No Physical Exam ED Vital Signs: Vital Signs - 24 hr 10/10/22 17:30 10/10/22 17:34 10/10/22 19:24 Temperature 98.9 F 98.7 F Pulse Rate 104 H 105 H 89 Respiratory Rate 15 20 14 Blood Pressure 100/74 159/86 H 122/69 Pulse Oximetry 66 L 100 97 Oxygen Delivery Method Room Air Nasal Cannula Nasal Cannula Oxygen Flow Rate 2 2 10/10/22 22:13 10/10/22 23:19 Temperature 97.8 F Pulse Rate 73 66 Respiratory Rate 14 8 L Blood Pressure 109/66 112/67 Pulse Oximetry 96 98 Oxygen Delivery Method Room Air Nasal Cannula Oxygen Flow Rate 2 BMI result Body Mass Index 36.6 vss Appearance: Alert.? Oriented X3.? No acute distress.? Head: Normocephalic, + healing abrasions throughout patient's head in various stages of healing, no step-offs or deformities Eyes: Pupils equal, round and reactive to light.? Bilateral pupils appear dilated reactive to light bilaterally. ENT: Pharynx normal.? Neck: Normal inspection.? Neck supple.? CVS: Normal heart rate and rhythm.? Pulses normal.? Respiratory: No respiratory distress.? Breath sounds normal.? Abdomen: Soft and nontender.? Skin: Skin warm and dry.? Normal skin color.? Normal skin turgor.? Extremities: No lower extremity edema.? No calf ttp. 5/5 strength to bilateral upper and lower extremities Neuro: Oriented X 3.? No motor deficit.? No sensory deficit. CN 2-12 intact . Ambulating with steady gait normal coordination. Course Reevaluation(s) Reevaluation #1: Patient's glucose critically low. Will give oral glucose. Time: 18:53 Reevaluation #2: CBC unremarkable. Chemistry with no acute electrolyte abnormalities requiring acute intervention. However his glucose was low, oral glucose was given as well as D10, Repeat point of care 159. CPK 367, not consistent with rhabdomyolysis, receiving fluids at this time. Ethanol negative. Urine tox and UA pending. Trauma scans pending. Time: 19:19 Reevaluation #3: CT of the head with no acute intracranial process. No acute fracture, dislocation or subluxation in the cervical spine. Degenerative changes of C5-C6. Unremarkable CT of chest, abdomen or pelvis. Nonobstructive renal calculi noted. Patient's point of care improved. Patient alert and oriented x4. Resting comfortably. Vital signs are stable. Patient's respiratory rate is not 8, I think this was entered in error by nursing patient's respiratory rate 12. Time: 23:50 Additional Reevaluation(s): To note earlier patient hypoxic episode likely secondary to medications, patient has not been hypoxic since then, he saturating 98% on room air, I do not suspect PE.. At this time patient will be placed in observation to allow more time to be evaluated by the behavioral health team in for patient to wake up more. At time observation was started patient alert and oriented x4. Will continue to monitor. UA and urine toxicology pending Medications Administered Generic Name Dose Route Start Last Admin Trade Name Freq PRN Reason Stop Dose Admin Dextrose 1,000 mls @ 50 mls/hr 10/10/22 19:00 10/10/22 19:56 D10 IVCONT 50 mls/hr .Q20H RAS Administration Discontinued Medications Generic Name Dose Route Start Last Admin Trade Name Umesh PRN Reason Stop Dose Admin Diphenhydramine HCl 50 mg 10/10/22 16:56 10/10/22 17:19 Diphenhydramine Hcl 50 Mg/Ml Vial IM 10/10/22 16:57 50 mg ONCE ONE Administration Glucose 15 gm 10/10/22 18:52 10/10/22 19:01 Glucose Gel 15 Gm Gel..Gram. PO 10/10/22 18:53 Not Given ONCE ONE Haloperidol Lactate 10 mg 10/10/22 16:56 10/10/22 17:11 Haloperidol Lactate 5 Mg/Ml Vial IM 10/10/22 16:57 10 mg ONCE ONE Administration Iohexol 100 ml 10/10/22 20:52 10/10/22 20:52 Iohexol 350 Mg/Ml 100 Ml Infus..Btl IV 10/10/22 20:53 85 ml ONCE ONE Administration Lorazepam 2 mg 10/10/22 16:56 10/10/22 17:20 Lorazepam 2 Mg/Ml Vial IM 10/10/22 16:57 2 mg STAT STA Administration Naloxone HCl 4 mg 10/10/22 17:49 10/10/22 17:49 Naloxone Hcl Nasal 4 Mg [place] NOSTRILALT 10/10/22 17:50 4 mg ONCE ONE Administration Medical Decision Making Medical Decision Making [facility] Narrative: [id number] 57-year-old male presents uncooperative with EMS and polic, suspected substance abuse. Behavioral restraints were ordered immediately on patient's arrival. Patient harm to self and others. When it Haldol, Ativan and Benadryl were given a few moments after patient became hypoxic saturating 68% on room air w/ RR of 4-6 breaths/minute, placed on a non-rebreather and saturating 98%. Narcan was also administered after narcan patient awake, alert oriented x4, well appearing. Calm & cooperative after medications. Patient now tells me that he used heroin and alcohol. Physical examination with multiple abrasions to head. Pupils appear dilated however reactive bilaterally. Patient with erratic behavior initially however after medications and Narcan patient following commands alert and oriented x4. Will rule out traumatic injuries to head, neck, chest, abdomen and pelvis. Unlikely stroke, posterior stroke. History and physical exam consistent with polysubstance abuse and possible alcohol intoxication Plan at this time medical clearance evaluation by care team. Differential Diagnosis Differential Diagnoses: The differential diagnosis associated with the presentation includes Will rule out traumatic injuries to head, neck, chest, abdomen and pelvis. Unlikely stroke, posterior stroke. History and physical exam consistent with polysubstance abuse and possible alcohol intoxication Admission/Observation Consideration of admission/observation: Escalation of care including admission/observation considered Lab Data MDM Lab Attestation statement: I reviewed the patient's lab results. 10/10/22 17:52 10/10/22 17:52 Labs: Lab Results 10/10/22 10/10/22 10/10/22 Range/Units 17:52 17:52 19:18 WBC 6.8 (4.8-10.8) X10*3/uL RBC 4.78 (4.60-5.80) X10*6/uL Hgb 14.2 (14.0-18.0) g/dl Hct 43.7 (42.0-52.0) % MCV 91.4 (80.0-98.0) fL MCH 29.7 (27.0-33.0) pg MCHC 32.5 (31.0-36.0) g/dl RDW 13.2 (11.0-16.0) % Plt Count 194 (160-400) X10*3/uL MPV 10.5 (9.4-12.4) fL Immature Gran % (Auto) 0.1 (0.0-0.4) % Neut % (Auto) 61.1 (45-73) % Lymph % (Auto) 25.6 (20-40) % [place] % (Auto) 10.7 (2-11) % Eos % (Auto) 2.1 (0-4) % Baso % (Auto) 0.4 (0-2) % Lymph # (Auto) 1.7 (1.2-4.9) X10*3/uL [place] # (Auto) 0.7 (0.1-1.2) X10*3/uL Eos # (Auto) 0.1 (0.0-0.4) X10*3/uL Baso # (Auto) 0.0 (0.0-0.2) X10*3/uL Abs Immat Gran (auto) 0.01 (0.00-0.03) X10*3/uL Absolute Neuts (auto) 4.2 (2.0-8.3) x10*3/uL Absolute Nucleated RBC 0.000 (0.0-0.012) X10*3/uL Nucleated RBC % (auto) 0.0 (0.0-0.2) /100WBC Sodium 146 H (135-145) mmol/L Potassium 4.2 (3.3-5.1) mmol/L Chloride 109 H (96-108) mmol/L Carbon Dioxide 30 H (22-29) mmol/L Anion Gap 11 L (12-20) BUN 20 H (9-16) mg/dL Creatinine 1.26 (0.5-1.4) mg/dL Estim Creat Clear Calc 72.0 Estimated GFR 59 POC Glucose 159 H (60-115) mg/dL Random Glucose 47 L* (60-115) mg/dL Calcium 9.8 (8.4-10.2) mg/dL Magnesium 1.9 (1.6-2.6) mg/dL Total Bilirubin 0.9 (0.0-1.0) mg/dL AST 22 (5-37) U/L ALT 13 (0-40) U/L Alkaline Phosphatase 77 (39-117) U/L Total Creatine Kinase 367 H (38-174) U/L Total Protein 7.3 (6.5-8.0) g/dL Albumin 4.4 (3.5-5.0) g/dL Ethyl Alcohol < 10 mg/dL 10/10/22 10/10/22 10/10/22 Range/Units 19:45 20:21 21:05 WBC (4.8-10.8) X10*3/uL RBC (4.60-5.80) X10*6/uL Hgb (14.0-18.0) g/dl Hct (42.0-52.0) % MCV (80.0-98.0) fL MCH (27.0-33.0) pg MCHC (31.0-36.0) g/dl RDW (11.0-16.0) % Plt Count (160-400) X10*3/uL MPV (9.4-12.4) fL Immature Gran % (Auto) (0.0-0.4) % Neut % (Auto) (45-73) % Lymph % (Auto) (20-40) % [place] % (Auto) (2-11) % Eos % (Auto) (0-4) % Baso % (Auto) (0-2) % Lymph # (Auto) (1.2-4.9) X10*3/uL [place] # (Auto) (0.1-1.2) X10*3/uL Eos # (Auto) (0.0-0.4) X10*3/uL Baso # (Auto) (0.0-0.2) X10*3/uL Abs Immat Gran (auto) (0.00-0.03) X10*3/uL Absolute Neuts (auto) (2.0-8.3) x10*3/uL Absolute Nucleated RBC (0.0-0.012) X10*3/uL Nucleated RBC % (auto) (0.0-0.2) /100WBC Sodium (135-145) mmol/L Potassium (3.3-5.1) mmol/L Chloride (96-108) mmol/L Carbon Dioxide (22-29) mmol/L Anion Gap (12-20) BUN (9-16) mg/dL Creatinine (0.5-1.4) mg/dL Estim Creat Clear Calc Estimated GFR POC Glucose 92 76 110 (60-115) mg/dL Random Glucose (60-115) mg/dL Calcium (8.4-10.2) mg/dL Magnesium (1.6-2.6) mg/dL Total Bilirubin (0.0-1.0) mg/dL AST (5-37) U/L ALT (0-40) U/L Alkaline Phosphatase (39-117) U/L Total Creatine Kinase (38-174) U/L Total Protein (6.5-8.0) g/dL Albumin (3.5-5.0) g/dL Ethyl Alcohol mg/dL 10/10/22 10/10/22 Range/Units 22:09 23:05 WBC (4.8-10.8) X10*3/uL RBC (4.60-5.80) X10*6/uL Hgb (14.0-18.0) g/dl Hct (42.0-52.0) % MCV (80.0-98.0) fL MCH (27.0-33.0) pg MCHC (31.0-36.0) g/dl RDW (11.0-16.0) % Plt Count (160-400) X10*3/uL MPV (9.4-12.4) fL Immature Gran % (Auto) (0.0-0.4) % Neut % (Auto) (45-73) % Lymph % (Auto) (20-40) % [place] % (Auto) (2-11) % Eos % (Auto) (0-4) % Baso % (Auto) (0-2) % Lymph # (Auto) (1.2-4.9) X10*3/uL [place] # (Auto) (0.1-1.2) X10*3/uL Eos # (Auto) (0.0-0.4) X10*3/uL Baso # (Auto) (0.0-0.2) X10*3/uL Abs Immat Gran (auto) (0.00-0.03) X10*3/uL Absolute Neuts (auto) (2.0-8.3) x10*3/uL Absolute Nucleated RBC (0.0-0.012) X10*3/uL Nucleated RBC % (auto) (0.0-0.2) /100WBC Sodium (135-145) mmol/L Potassium (3.3-5.1) mmol/L Chloride (96-108) mmol/L Carbon Dioxide (22-29) mmol/L Anion Gap (12-20) BUN (9-16) mg/dL Creatinine (0.5-1.4) mg/dL Estim Creat Clear Calc Estimated GFR POC Glucose 91 122 H (60-115) mg/dL Random Glucose (60-115) mg/dL Calcium (8.4-10.2) mg/dL Magnesium (1.6-2.6) mg/dL Total Bilirubin (0.0-1.0) mg/dL AST (5-37) U/L ALT (0-40) U/L Alkaline Phosphatase (39-117) U/L Total Creatine Kinase (38-174) U/L Total Protein (6.5-8.0) g/dL Albumin (3.5-5.0) g/dL Ethyl Alcohol mg/dL Core Measures AMI core measures followed: Yes Measure exclusions: not indicated Critical Care Time Critical Care Time Critical Care Time: No Discharge Plan Discharge Clinical Impression: Polysubstance abuse, Hypoglycemia Patient Disposition: Still a Patient
[2022-10-10] MEDS: Haloperidol Lactate 5 MG/ML VIAL 10 MG IM (17:11)
[2022-10-10] MEDS: diphenhydrAMINE HCL 50 MG/ML VIAL IM (17:19)
[2022-10-10] MEDS: LORazepam 2 MG/ML VIAL IM (17:20)
[2022-10-10 17:30] VITALS: BP 100/74; PULSE 104; RESP 15; TEMP 37.2; O2SAT 66; BMI 36.6
[2022-10-10 17:34] VITALS: BP 159/86; PULSE 105; RESP 20; O2SAT 100
[2022-10-10] MEDS: Naloxone HCl Nasal 4 MG SPRAY NOSTRILALT (17:49)
[2022-10-10 17:58] LABS: MANUAL DIFF FLAG NO
[2022-10-10 18:17] LABS: Basophils Percent Auto 0.4 % (0-2); Eosinophils Absolute Auto 0.1 X10*3/uL (0.0-0.4); Eosinophils Percent Auto 2.1 % (0-4); Hematocrit 43.7 % (42.0-52.0); Hemoglobin 14.2 g/dl (14.0-18.0); Imm Gran Abs Auto 0.01 X10*3/uL (0.00-0.03); Imm Gran Pct Auto 0.1 % (0.0-0.4); Lymphocytes Absolute Auto 1.7 X10*3/uL (1.2-4.9); Lymphocytes Percent Auto 25.6 % (20-40); Mean Corpuscular HGB Conc 32.5 g/dl (31.0-36.0); Mean Corpuscular Hemoglobin 29.7 pg (27.0-33.0); Mean Corpuscular Volume 91.4 fL (80.0-98.0); Mean Platelet Volume 10.5 fL (9.4-12.4); Monocytes Absolute Auto 0.7 X10*3/uL (0.1-1.2); Monocytes Percent Auto 10.7 % (2-11); Neutrophils Absolute Auto 4.2 x10*3/uL (2.0-8.3); Neutrophils Percent Auto 61.1 % (45-73); Platelet Count 194 X10*3/uL (160-400); Red Blood Count 4.78 X10*6/uL (4.60-5.80); Red Cell Distribution Width 13.2 % (11.0-16.0); White Blood Count 6.8 X10*3/uL (4.8-10.8)
[2022-10-10 18:44] LABS: Alanine Aminotransferase 13 U/L (0-40); Albumin Level 4.4 g/dL (3.5-5.0); Alkaline Phosphatase 77 U/L (39-117); Anion Gap 11 (12-20); Aspartate Amino Transferase 22 U/L (5-37); Bilirubin Total 0.9 mg/dL (0.0-1.0); Blood Urea Nitrogen 20 mg/dL (9-16); Calcium 9.8 mg/dL (8.4-10.2); Carbon Dioxide 30 mmol/L (22-29); Chloride 109 mmol/L (96-108); Estimated Glomerular Filt Rate 59; Ethanol < 10 mg/dL; Glucose Random 47 mg/dL (60-115); Magnesium 1.9 mg/dL (1.6-2.6); Potassium 4.2 mmol/L (3.3-5.1); Sodium 146 mmol/L (135-145); Total Protein 7.3 g/dL (6.5-8.0)
--- NOTE | 2022-10-10 19:01 | PC.NURSE ---
glucose 46, sleeping soundly and unable to wake him to eat/drink, d 10 started, pt diaphoretic, sr on monitor
[2022-10-10 19:22] LABS: Glucose, Whole Blood 159 mg/dL (60-115)
[2022-10-10 19:24] VITALS: BP 122/69; PULSE 89; RESP 14; TEMP 37.1; O2SAT 97
[2022-10-10 19:49] LABS: Glucose, Whole Blood 92 mg/dL (60-115)
[2022-10-10] MEDS: Dextrose 10 % 1,000 ML 50 ML IVCONT (19:56)
--- NOTE | 2022-10-10 20:00 | PC.NURSE ---
This writer technical publications assumed care of this Pt at 1900. POC 46. Pt appears to be sleeping, awaken with painful stimuli. Attempt made to give Glucose gel PO unsuccessful. D10 bolus running into IV. Will CTM.
[2022-10-10 20:25] LABS: Glucose, Whole Blood 76 mg/dL (60-115)
[2022-10-10] MEDS: iohexoL 350 MG/ML 100 ML INFUS..BTL IV (20:52)
[2022-10-10 21:09] LABS: Glucose, Whole Blood 110 mg/dL (60-115)
--- NOTE | 2022-10-10 21:51 | PC.NURSE ---
This lyric writer assumed care of this Pt at 1900.h Awaken with painful stimuli
--- NOTE | 2022-10-10 22:01 | PC.NURSE ---
Maria Del Carmen sister # [phone].
[2022-10-10 22:13] VITALS: BP 109/66; PULSE 73; RESP 14; TEMP 36.6; O2SAT 96
[2022-10-10 22:13] LABS: Glucose, Whole Blood 91 mg/dL (60-115)
--- NOTE | 2022-10-10 22:59 | HO.SUDE ---
CARE Team attempted- Pt is not engageable
[2022-10-10 23:08] LABS: Glucose, Whole Blood 122 mg/dL (60-115)
[2022-10-10 23:19] VITALS: BP 112/67; PULSE 66; RESP 8; O2SAT 98
[2022-10-11 00:08] VITALS: BP 124/68; PULSE 56; RESP 11; O2SAT 95
--- NOTE | 2022-10-11 00:12 | PC.NURSE ---
Pt awakens with verbal stimuli, lethargic, cant keep eyes open for more then 5 seconds, answering yes or no questions. Pt assisted to bedside for urinal use, then ambulated with shuffled gait to BR with 2 staff members, unable to stay awake for collected. 94-95% on RA. D10 paused at this time, will CTM.
[2022-10-11 00:31] LABS: COVID-19 Test Negative (Negative); IDNOW Serial# BCCEAD1C
[2022-10-11 01:11] LABS: Glucose, Whole Blood 93 mg/dL (60-115)
[2022-10-11 02:12] VITALS: BP 122/80; PULSE 58; RESP 14; O2SAT 96
[2022-10-11 05:17] LABS: Glucose, Whole Blood 85 mg/dL (60-115)
[2022-10-11 06:06] VITALS: BP 115/70; PULSE 75; RESP 12; TEMP 36.7; O2SAT 98
--- NOTE | 2022-10-11 06:26 | PC.NURSE ---
Pt appears to be sleeping at this time. RR 16. Awakens upon verbal stimuli. Denies any pain, denies SI/HI.
--- NOTE | 2022-10-11 06:37 | MHC.CARE ---
Cornell requested assistance with a Detox admission . He currently reports using 4-5 bags of Heroin along with Crack Cocaine daily. He denied PCP use or any other substances.
--- NOTE | 2022-10-11 06:42 | PC.NURSE ---
Pt changed over by security, belongings collected and placed in decon room.
[2022-10-11 07:22] VITALS: BP 115/65; PULSE 64; RESP 13; TEMP 36.9; O2SAT 97
[2022-10-11 07:29] LABS: Glucose, Whole Blood 92 mg/dL (60-115)
[2022-10-11 10:09] VITALS: BP 129/76; PULSE 62; RESP 16; TEMP 37.1; O2SAT 96
--- NOTE | 2022-10-11 10:46 | MHC.RECOVRN ---
This rfp writer attempted to meet w/ patient, patient falling asleep/sedated during this writers questions.
[2022-10-11 11:38] LABS: Glucose, Whole Blood 88 mg/dL (60-115)
--- NOTE | 2022-10-11 11:54 | MHC.RECOVRN ---
Attempted to meet with pt in ED10 to discuss substance use and desire for treatment. Pt difficult to engage, keeps eyes closed throughout conversation, does not answer all questions. Pt reports going to [facility] 3 weeks ago and would like to return to [facility]. Pt will only go to . Pt reports starting Suboxone through [facility] 2 weeks ago. Pt does not answer questions regarding substances used, amount, route, frequency. T/w attempted to call [facility] unsuccessfully multiple times. Pt encouraged to follow up from community.
--- NOTE | 2022-10-11 12:53 | MHC.RECOVRN ---
This technical report writer reviewed recovery resources at the bedside, patient given Leah contact to f/u from the community. Mary Stephenson information given and reviewed for patient to f/u for recovery supports, help with detox bedsearch, transportation to detox. Recovery Resources left at bedside.
[2022-10-11 13:48] VITALS: BP 155/78; PULSE 62; RESP 14; TEMP 37.2; O2SAT 98
== END 2022-10-11 14:24 | disposition home or self-care (01) ==
PROVIDERS: Physician Assistant; Emergency Provider Student in an Organized Health Care Education/Training Program
DX: F19.10 Other psychoactive substance abuse, uncomplicated (principal); E16.2 Hypoglycemia, unspecified; S00.91XA Abrasion of unspecified part of head, initial encounter; X58.XXXA Exposure to other specified factors, initial encounter; F11.20 Opioid dependence, uncomplicated; Y93.9 Activity, unspecified; Y92.9 Unspecified place or not applicable; Y99.9 Unspecified external cause status
CPT/HCPCS: 36415; 70450; 71045; 71260; 72125; 74177; 80053; 82077; 82550; 82947; 83735; 85025; 87635; 96365; 96366; 96372; 99285; J1200; J2060; Q9967

== ENCOUNTER 2022-10-17 18:19 | Emergency (ER) | payer MEDICAID, SELFPAY ==
[2022-10-17 18:33] VITALS: BP 129/91; PULSE 95; RESP 14; O2SAT 97; BMI 29.1
--- NOTE | 2022-10-17 19:04 | ED.GENADULT ---
HPI - General Adult General Chief complaint: ETOH/Substance Use Stated complaint: SUBSTANCE ABUSE Time Seen by Provider: 10/17/22 18:35 Source: patient and EMS Mode of arrival: EMS Limitations: no limitations History of Present Illness HPI narrative: 57-year-old male homeless brought in by EMS for a suspected substance abuse, patient admitted that he used 1 bag of heroin, no SI, no HI. Patient was found by the police banging on people cars. Patient emergency department is awake, alert, oriented x3 admitted to using heroin today, denies any auditory hallucination. Patient is asking for food and be discharged. Related Data Home Medications Medication Instructions Recorded Confirmed buprenorphine 8 mg-naloxone 2 mg 2 strip sublingual DAILY 07/30/22 07/30/22 sublingual film (Suboxone) Allergies Allergy/AdvReac Type Severity Reaction Status Date / Time No Known Allergies Allergy Verified 10/11/22 07:10 [No Known Allergies*] Review of Systems Review of Systems: All other systems are reviewed and are negative Constitutional: Reports as per HPI and Reports no additional constitutional complaints Eyes: Reports as per HPI and Reports no additional eye complaints Reports system reviewed and no additional complaints, except as documented Cardiovascular: Reports as per HPI and Reports no additional cardiovascular complaints Respiratory: Reports as per HPI and Reports no additional respiratory complaints Gastrointestinal: Reports as per HPI and Reports no additional gastrointestinal complaints Genitourinary: Reports no additional female genitourinary complaints Musculoskeletal: Reports no additional musculoskeletal complaints Skin/Breast: Reports system reviewed and no additional complaints, except as docu Psychiatric: Reports no additional psychiatric complaints Endocrine: Reports no additional endocrine complaints Hematologic/Lymphatic: Reports no additional hematologic/lymphatic complaints Allergic/Immunologic: Reports no additional allergic/immunologic complaints Reports system reviewed and no additional complaints, except as documented and Reports Abnormal speech present [facility] Past Medical History Medical History Atypical bipolar disorder B12 deficiency Chronic post-traumatic stress disorder (PTSD) Chronic schizophrenia Cocaine use disorder Depressive disorder Heroin use Opioid use disorder, moderate, in early remission, on maintenance therapy, dependence Social History Social History Household Members: Significant Other Household Members Other:: plans to move in with sister after discharge Housing: Unknown / Unable to assess Housing Other:: pt plans on living with his sister after D/C Do you presently have visiting nurse or other home services: No Alcohol intake: current Alcohol intake frequency: a few times a week Patient Tobacco Use Status: Current everyday Tobacco user Tobacco use type: Cigarette Cigarette Packs Per Day: 0.5 Cigarettes Per Day: 10.0 Years Smoked: 20 e-Cigarette/Vaping Use: Never Used Second Hand Smoke Exposure: Yes Substance Use Type: Heroin Advance Directives: No Advance Directives Information Provided: No service: No Sexual orientation: Straight/Heterosexual Physical Exam ED Vital Signs: Vital Signs - 24 hr 10/17/22 18:33 Pulse Rate 95 Respiratory Rate 14 Blood Pressure 129/91 H Pulse Oximetry 97 Oxygen Delivery Method Room Air BMI result Body Mass Index 29.1 Vital signs have been reviewed as appeared to be correct. Blood pressure normal. Heart rate normal. Respiration rate normal. Temperature normal. Oxygen saturation normal. Appearance: Alert. Oriented X3. No acute distress. Head: Normal external exam. Normocephalic. Atraumatic. No Sarah signs noted. No raccoon eyes noted Eyes: PERRLA. EOMI. Conjunctiva and sclera normal. Eyelids normal. ENT: TM's Normal. Pharynx normal. Uvula midline. Moist mucous membranes. No trismus noted. No drooling noted. No muffled voice noted. Neck: Normal inspection. Neck supple. FROM. No adenopathy. Thyroid Normal. No meningeal signs. No neck mass noted. CVS: Normal heart rate and rhythm. Heart sound normal. No murmurs noted. Pulses normal throughout. Respiratory: No respiratory distress. Painless inspiration. Breath sounds normal. No wheezes/rales/rhonchi noted. Chest nontender. No accessory muscle usage noted or decreased air movement noted. Abdomen: Soft and nontender. Bowel sounds normal in all 4 quadrants. No distention noted. No organomegaly noted. No visible injury noted. Back: No CVA tenderness. Full range of motion noted. Skin: Skin warm and dry. Normal skin color. Normal skin turgor. No rashes/lesions/lacerations noted. Extremities: No lower extremity edema. Extremities exhibit normal range of motion. Extremities nontender. Neuro: Oriented X 3. Cranial nerve exam: II-XII are grossly intact No motor deficit. No sensory deficit. Reflexes normal. Medical Decision Making Differential Diagnosis Differential Diagnoses: The differential diagnosis associated with the presentation includes (Substance abuse, SI, acute psychosis.) Discharge Plan Discharge Clinical Impression: Active substance abuse Patient Disposition: Home, Self-Care Instructions: Polysubstance Abuse (ED) Prescriptions: No Action buprenorphine-naloxone [Suboxone] 8-2 mg film 2 strip sublingual DAILY
--- NOTE | 2022-10-17 19:31 | MHC.EDTECH ---
i just took over assignment went to take vitals and remind pt he has to be in his room as he is dancing in hallway, pt went back into his room he has his dinner tray and other foods all over the floor, nurse aware pt is being dischareged
--- NOTE | 2022-10-17 19:31 | MHC.RECOVSUP ---
Reason for consult: Recovery Support o Current location: 08 o Identified substance use concern: ETOH/OPIOID <del>-</del> <del>Overdose</del> <del>-</del> <del>Withdrawal</del> <del>-</del> <del>Seeking</del> <del>ATS</del> <del>(detox)</del> - Support <del>?</del> <del>Intervention:</del> <del>o</del> <del>ATS</del> <del>bed</del> <del>search</del> <del>started/completed/in</del> <del>process</del> <del>o</del> <del>MAT</del> <del>started</del> <del>or</del> <del>to</del> <del>be</del> <del>started</del> o Community resources provided <del>o</del> <del>Harm</del> <del>reduction</del> <del>discussion</del> ? Plan: <del>o</del> <del>Referral</del> <del>to</del> <del>[facility]</del> <del>o</del> <del>Bed</del> <del>search</del> <del>in</del> <del>progress</del> <del>to</del> <del>o</del> <del>Follow</del> <del>up</del> <del>tomorrow</del> <del>o</del> <del>Patient</del> <del>awaiting</del> <del>crisis</del> <del>evaluation</del> <del>o</del> <del>Patient</del> <del>to</del> <del>follow</del> <del>up</del> <del>with</del> <del>[facility]</del> <del>after</del> <del>discharge</del> ? Additional information: I was able to speak with pt and pt was in the process of being discharged. I asked pt if he was interested in possibly going to ATS or would like for a referral to an MAT clinic and he denied any referral. pt stated having a hx of substance use and homelessness. I was able to provide him with information on [facility], ATS list and [facility]. pt encouraged to call tomorrow morning if interested in treatment.
--- NOTE | 2022-10-17 19:33 | MHC.EDTECH ---
pt refused vitals
== END 2022-10-17 19:37 | disposition home or self-care (01) ==
PROVIDERS: Emergency Provider Emergency Medicine
DX: F11.19 Opioid abuse with unspecified opioid-induced disorder (principal); Z79.899 Other long term (current) drug therapy; Z71.51 Drug abuse counseling and surveillance of drug abuser
CPT/HCPCS: 99283

== ENCOUNTER 2022-11-15 12:42 | Emergency (ER) | payer MEDICAID, SELFPAY ==
[2022-11-15 12:48] VITALS: BP 120/91; BP 165/88; PULSE 100; PULSE 106; RESP 16; TEMP 36.7; O2SAT 100; O2SAT 96; BMI 27.4
--- NOTE | 2022-11-15 13:01 | PC.NURSE ---
Pt restless, walking/dancing around room. Calm and cooperative at this time. Denies Si or HII. Security at bedside. Pt searched by security no contraband found. Snacks given
--- NOTE | 2022-11-15 13:15 | ED_ITS ---
HPI - General Adult General Chief complaint: ETOH/Substance Use Stated complaint: CRACK USE PER EMS Time Seen by Provider: 11/15/22 13:08 Source: patient Mode of arrival: EMS Limitations: no limitations History of Present Illness HPI narrative: 57-year-old male with history of PTSD, questionable bipolar disorder, polysubstance abuse presents with acute intoxication due to the use of crack cocaine. Patient admits to using crack cocaine on a daily basis. He is prior to arrival. He denies any other drugs or alcohol. He denies suicidal homicidal ideations. He was found by PD dancing on the corner of the street. The medics were contacted and brought to the emergency department where he offers no acute complaints. His symptoms are exacerbated by drug use. Patient wishes to leave at this time. Does not wish to have any consultation regarding detox or other substance abuse treatment. Related Data Home Medications Medication Instructions Recorded Confirmed buprenorphine 8 mg-naloxone 2 mg 2 strip sublingual DAILY 07/30/22 07/30/22 sublingual film (Suboxone) Allergies Allergy/AdvReac Type Severity Reaction Status Date / Time No Known Allergies Allergy Verified 10/11/22 07:10 [No Known Allergies*] [facility] Past Medical History Medical History Atypical bipolar disorder B12 deficiency Chronic post-traumatic stress disorder (PTSD) Chronic schizophrenia Cocaine use disorder Depressive disorder Heroin use Opioid use disorder, moderate, in early remission, on maintenance therapy, dependence Social History Social History Household Members: Significant Other Household Members Other:: plans to move in with sister after discharge Housing: Unknown / Unable to assess Housing Other:: pt plans on living with his sister after D/C Do you presently have visiting nurse or other home services: No Alcohol intake: unknown Patient Tobacco Use Status: Current everyday Tobacco user Tobacco use type: Cigarette Cigarette Packs Per Day: 0.5 Cigarettes Per Day: 10.0 Years Smoked: 20 e-Cigarette/Vaping Use: Never Used Second Hand Smoke Exposure: Yes Use of substances other than those prescribed or required for medical reasons: Yes Substance Use Type: Crack/Cocaine Advance Directives: No Advance Directives Information Provided: No service: No Sexual orientation: Straight/Heterosexual Physical Exam ED Vital Signs: Vital Signs - 24 hr 11/15/22 12:48 Temperature 98.1 F Pulse Rate 106 H Respiratory Rate 16 Blood Pressure 120/91 H Pulse Oximetry 96 Oxygen Delivery Method Room Air BMI result Body Mass Index 27.4 GEN: Well developed, no acute distress, alert, intoxicated appearing HEENT: Normocephalic, atraumatic, normal external ears, nose appears normal Eyes: Normal to appearance Neck: Supple, no lymphadenopathy Abdomen: Umbilical hernia Respiratory: Talks in complete sentences, no respiratory distress Extremities: No clubbing cyanosis or edema Neurologic: No focal neurologic deficits, cranial nerves 2-12 intact, gait normal Skin: No rash Course Course Course Narrative: 57-year-old male with history of crack cocaine abuse presents with acute intoxication. Patient offers no suicidal or homicidal ideation. He was brought to the emergency department for public intoxication. Patient denies any alcohol use. He does admit to crack cocaine use earlier today. He denies any physical or psychological complaints such as SI or HI. At this time, there is no indication for further testing or treatment. Patient wishes to go and be discharged home. He has decision-making capacity. He has been counseled regarding drug use. He will return for any concerning signs or symptoms. Medical Decision Making Medical Decision Making MDM Narrative: 57-year-old male with history of substance abuse, possible psychiatric history including PTSD presents with acute cocaine intoxication. Patient offers no SI or HI. Does not warrant an emergent psychiatric evaluation. Patient wishes to leave at this time. He is aware of the risks of cocaine abuse. At this time, he appears to have decision making capacity. Patient will be discharged home. He has been given strict return instructions. Differential Diagnosis Differential Diagnoses: The differential diagnosis associated with the presentation includes (Cocaine intoxication, polysubstance abuse, anxiety, depression) Cocaine use External Record Review External record reviewed: Other (Previous psychiatric record from 03/09/2022) Tests considered The following testing was considered but not selected: Drug toxicology screen Prescription Management I considered prescription management with: Other (anxiolytics) Social Determinants Patient?s care significantly limited by Social Determinants of Health including: Low income Discharge Plan Discharge Clinical Impression: Crack cocaine use Patient Disposition: Home, Self-Care Instructions: Cocaine Abuse (ED) Prescriptions: No Action buprenorphine-naloxone [Suboxone] 8-2 mg film 2 strip sublingual DAILY Referrals: [facility] [Primary Care Provider] - 1 day
== END 2022-11-15 13:53 | disposition home or self-care (01) ==
PROVIDERS: Emergency Provider Emergency Medicine
DX: F14.129 Cocaine abuse with intoxication, unspecified (principal); F17.210 Nicotine dependence, cigarettes, uncomplicated; Z71.6 Tobacco abuse counseling; Z79.899 Other long term (current) drug therapy
CPT/HCPCS: 99283; 99284

== ENCOUNTER 2022-12-02 09:06 | Emergency (ER) | payer MEDICAID, SELFPAY ==
[2022-12-02 09:12] VITALS: BP 136/86; PULSE 85
--- NOTE | 2022-12-02 09:17 | ED_ITS ---
HPI - General Adult General Chief complaint: ETOH/Substance Use Stated complaint: OVERDOSE, NARCAN GIVEN Time Seen by Provider: 12/02/22 09:15 Source: patient and EMS Mode of arrival: EMS Limitations: no limitations History of Present Illness HPI narrative: Patient is a 57 year old assigned male at with a history of substance abuse presenting to the emergency department today after an accidental overdose. Patient states that he used today but he feels fine now and does not want detox. EMS used narcan on scene. Patient denies any dizziness, lightheadedness, abdominal pain, nausea, vomiting, fever, chills, blurry vision, double vision, loss of vision, chest pain, difficulty breathing, shortness of breath, back pain, night sweats, pain with urination, increased urinary frequency, increased urinary urgency, blood in his urine or stool, syncope or a near syncopal episode, recent trauma or falls, bowel incontinence, bladder incontinence, bowel retention, bladder retention, or any other complaints at this time. Related Data Home Medications Medication Instructions Recorded Confirmed buprenorphine 8 mg-naloxone 2 mg 2 strip sublingual DAILY 07/30/22 07/30/22 sublingual film (Suboxone) Allergies Allergy/AdvReac Type Severity Reaction Status Date / Time No Known Allergies Allergy Verified 10/11/22 07:10 [No Known Allergies*] Review of Systems Constitutional: Constitutional: Reports no additional constitutional complaints, Denies chills, Denies fever(s) and Denies night sweats Eyes: Eyes: Reports no additional eye complaints, Denies blurry vision, Denies change in vision, Denies diplopia, Denies eye discharge, Denies loss of vision and Denies eye pain ENT: Denies dizziness Cardiovascular: Cardiovascular: Reports no additional cardiovascular complaints, Denies chest pain, Denies lightheadedness, Denies Loss of Consciousness and Denies dyspnea Respiratory: Respiratory: Reports no additional respiratory complaints and Denies dyspnea Gastrointestinal: Gastrointestinal: Reports no additional gastrointestinal complaints, Denies abdominal pain, Denies melena, Denies hematochezia, Denies change in bowel habits and Denies change in stool character Genitourinary: Genitourinary: Reports no additional male genitourinary complaints, Denies hematuria, Denies oliguria, Denies difficulty urinating, Denies dysuria, Denies urinary frequency, Denies urinary hesitancy, Denies urinary incontinence and Denies urinary urgency Musculoskeletal: Musculoskeletal: Reports no additional musculoskeletal complaints, Denies numbness and Denies tingling Neurologic: Denies dizziness, Denies loss of vision, Denies numbness and Denies tingling Psychiatric: Psychiatric: Reports no additional psychiatric complaints Endocrine: Endocrine: Reports no additional endocrine complaints Hematologic/Lymphatic: Hematologic/Lymphatic: Reports no additional blanca tologic/lymphatic complaints Allergic/Immunologic: Allergic/Immunologic: Reports no additional allergic/immunologic complaints PMFSH Past Medical History Attestation statement: The following information was validated with the patient. Source: old records reviewed and nursing notes reviewed Medical History Atypical bipolar disorder B12 deficiency Chronic post-traumatic stress disorder (PTSD) Chronic schizophrenia Cocaine use disorder Depressive disorder Heroin use Opioid use disorder, moderate, in early remission, on maintenance therapy, dependence Social History Social History Household Members: Significant Other Household Members Other:: plans to move in with sister after discharge Housing: Unknown / Unable to assess Housing Other:: pt plans on living with his sister after D/C Do you presently have visiting nurse or other home services: No Alcohol intake: unknown Patient Tobacco Use Status: Current everyday Tobacco user Tobacco use type: Cigarette Cigarette Packs Per Day: 0.5 Cigarettes Per Day: 10.0 Years Smoked: 20 e-Cigarette/Vaping Use: Never Used Second Hand Smoke Exposure: Yes Substance Use Type: Crack/Cocaine Advance Directives: No Advance Directives Information Provided: No service: No Sexual orientation: Straight/Heterosexual Physical Exam ED Vital Signs: Vital Signs - 24 hr 12/02/22 09:19 Temperature 98 F Pulse Rate 88 Respiratory Rate 14 Blood Pressure 153/91 H Pulse Oximetry 98 Oxygen Delivery Method Room Air BMI result Body Mass Index 26.9 Const General: cooperative, no acute distress, alert and awake Nutritional Appearance: well nourished Orientation/consciousness: patient oriented x3 Limitations: no limitations HENMT Head: Yes normal to inspection and Yes atraumatic Ears: hearing grossly normal bilaterally and external ears normal General nose exam: Normal external nose present, no nasal discharge noted and no epistaxis Face and sinus: Yes normal facial exam, No abrasion and No laceration Mouth: Normal oral and palatal mucosa present, no drooling and no muffled voice Eyes General: appearance normal, both eyes and all related structures Periorbital: periorbital findings normal Eyelids: Yes eyelids normal Conjunctivae: conjunctivae normal Pupils: Equal, round and reactive pupils present EOM: EOMs intact bilaterally Neck Neck: Yes normal visual inspection, Yes full ROM and Yes no lymphadenopathy Chest Chest palpation & inspection: normal inspection of the chest Resp Effort & Inspection: normal respiratory effort and able to speak in complete sentences Auscultation: clear to auscultation bilaterally Cardio Rate: regular rate Rhythm: regular rhythm GI Inspection: Yes normal to inspection Palpation (GI): Soft to palpation, not firm, nontender and no guarding Neuro General: patient oriented x3 and moves all extremities Cranial nerves: Yes Equal, round and reactive pupils present Cognition (Neuro): normal cognition Motor exam (neuro): 5/5 motor strength present throughout Sensory Exam: Normal double simultaneous stimulation for sensation Coordination: [id number] test normal Extrem General: Yes normal to inspection, Yes full ROM and Yes capillary refill normal Psych Appearance: grossly normal Mental Status: mental status grossly normal Affect: normal affect Attitude: cooperative Thought process: Normal thought process present Thought content: Normal thought content present Insight: Good insight present (Psych) Medical Decision Making Medical Decision Making MDM Narrative: Patient is a 57 year old assigned male at with a history of substance abuse presenting to the emergency department today after an accidental overdose. Patient's physical exam was unremarkable. Patient refused recovery services. I explained my physical exam findings to the patient. I answered all questions asked by the patient. I stressed the importance of the patient taking his medication as prescribed. I stressed the importance of the patient following up with his primary care provider. I stressed the importance of the patient returning to the emergency department immediately if his symptoms were to worsen or if he were to develop any dizziness, shortness of breath, difficulty breathing, chest pain, blurry vision, loss of vision, nausea, vomiting, abdominal pain, fever, chills, back pain, or any other complaints. Patient verbalized agreement and understanding with this treatment plan and discharge. Differential Diagnosis Differential Diagnoses: The differential diagnosis associated with the presentation includes substance abuse Independent Historian Clinical information obtained from an independent historian. History obtained from or confirmed by: EMS Discharge Plan Discharge Clinical Impression: Active substance abuse Patient Disposition: Home, Self-Care Instructions: Polysubstance Abuse (ED) Additional Instructions: Follow up with your primary care provider. Return to the emergency department immediately if your symptoms worsen or if you develop any dizziness, shortness of breath, difficulty breathing, chest pain, blurry vision, loss of vision, nausea, vomiting, abdominal pain, fever, chills, back pain, or any other complaints. Prescriptions: No Action buprenorphine-naloxone [Suboxone] 8-2 mg film 2 strip sublingual DAILY Referrals: Angel Pisano MD [Primary Care Provider] - Print Language: Ukrainian
[2022-12-02 09:19] VITALS: BP 153/91; PULSE 88; RESP 14; TEMP 36.6; O2SAT 98; BMI 26.9
--- NOTE | 2022-12-02 09:24 | HO.SUDE ---
Pt declines SUDE at this time.
--- NOTE | 2022-12-02 10:48 | PC.NURSE ---
pt is not at bedside.
== END 2022-12-02 11:41 | disposition home or self-care (01) ==
PROVIDERS: Emergency Provider Emergency Medicine; PCP Family Medicine
DX: T65.91XA Toxic effect of unspecified substance, accidental (unintentional), initial encounter (principal); Y92.9 Unspecified place or not applicable; F14.19 Cocaine abuse with unspecified cocaine-induced disorder; F11.20 Opioid dependence, uncomplicated; Z71.51 Drug abuse counseling and surveillance of drug abuser; F17.210 Nicotine dependence, cigarettes, uncomplicated; Z71.6 Tobacco abuse counseling; Z79.899 Other long term (current) drug therapy
CPT/HCPCS: 99282; 99283; 99284; 99285

== ENCOUNTER 2022-12-02 12:14 | Emergency (ER) | payer MEDICAID, SELFPAY ==
[2022-12-02 12:29] VITALS: BP 137/87; PULSE 89; RESP 18; TEMP 37; O2SAT 100; BMI 27.3
--- NOTE | 2022-12-02 12:45 | ED.GENADULT ---
HPI - General Adult General Chief complaint: General Medical Stated complaint: ETOH Time Seen by Provider: 12/02/22 12:45 Source: patient and EMS Mode of arrival: EMS Limitations: no limitations History of Present Illness HPI narrative: Patient is a 57 year old assigned male at with a history of substance abuse presenting to the emergency department today after being seen stumbling in the street. Patient states that he used and drank today but he feels fine now and does not want detox. Patient states that he just slipped off a curb and didn't fall. EMS states that PD called because they saw the patient almost fall into the street. Patient denies any dizziness, lightheadedness, abdominal pain, nausea, vomiting, fever, chills, blurry vision, double vision, loss of vision, chest pain, difficulty breathing, shortness of breath, back pain, night sweats, pain with urination, increased urinary frequency, increased urinary urgency, blood in his urine or stool, syncope or a near syncopal episode, recent trauma or falls, bowel incontinence, bladder incontinence, bowel retention, bladder retention, or any other complaints at this time. Relieving factors: none Exacerbating factors: none Associated symptoms: denies other symptoms Treatments prior to arrival: none Related Data Home Medications Medication Instructions Recorded Confirmed buprenorphine 8 mg-naloxone 2 mg 2 strip sublingual DAILY 07/30/22 07/30/22 sublingual film (Suboxone) Allergies Allergy/AdvReac Type Severity Reaction Status Date / Time No Known Allergies Allergy Verified 10/11/22 07:10 [No Known Allergies*] Review of Systems Constitutional: Constitutional: Reports no additional constitutional complaints, Denies chills, Denies fever(s) and Denies night sweats Eyes: Eyes: Reports no additional eye complaints, Denies blurry vision, Denies change in vision, Denies diplopia, Denies eye discharge, Denies loss of vision and Denies eye pain ENT: Denies dizziness Cardiovascular: Cardiovascular: Reports no additional cardiovascular complaints, Denies chest pain, Denies lightheadedness, Denies Loss of Consciousness and Denies dyspnea Respiratory: Respiratory: Reports no additional respiratory complaints and Denies dyspnea Gastrointestinal: Gastrointestinal: Reports no additional gastrointestinal complaints, Denies abdominal pain, Denies melena, Denies hematochezia, Denies change in bowel habits and Denies change in stool character Genitourinary: Genitourinary: Reports no additional male genitourinary complaints, Denies hematuria, Denies oliguria, Denies difficulty urinating, Denies dysuria, Denies urinary frequency, Denies urinary hesitancy, Denies urinary incontinence and Denies urinary urgency Musculoskeletal: Musculoskeletal: Reports no additional musculoskeletal complaints, Denies numbness and Denies tingling Neurologic: Denies dizziness, Denies loss of vision, Denies numbness and Denies tingling Psychiatric: Psychiatric: Reports no additional psychiatric complaints Endocrine: Endocrine: Reports no additional endocrine complaints Hematologic/Lymphatic: Hematologic/Lymphatic: Reports no additional hematologic/lymphatic complaints Allergic/Immunologic: Allergic/Immunologic: Reports no additional allergic/immunologic complaints PMFSH Past Medical History Attestation statement: The following information was validated with the patient. Source: old records reviewed and nursing notes reviewed Medical History Atypical bipolar disorder B12 deficiency Chronic post-traumatic stress disorder (PTSD) Chronic schizophrenia Cocaine use disorder Depressive disorder Heroin use Opioid use disorder, moderate, in early remission, on maintenance therapy, dependence Social History Social History Household Members: Significant Other Household Members Other:: plans to move in with sister after discharge Housing: Unknown / Unable to assess Housing Other:: pt plans on living with his sister after D/C Do you presently have visiting nurse or other home services: No Alcohol intake: unknown Patient Tobacco Use Status: Current everyday Tobacco user Tobacco use type: Cigarette Cigarette Packs Per Day: 0.5 Cigarettes Per Day: 10.0 Years Smoked: 20 e-Cigarette/Vaping Use: Never Used Second Hand Smoke Exposure: Yes Substance Use Type: Crack/Cocaine Advance Directives: No Advance Directives Information Provided: No service: No Sexual orientation: Straight/Heterosexual Physical Exam ED Vital Signs: Vital Signs - 24 hr 12/02/22 12:29 12/02/22 15:30 Temperature 98.6 F 97.9 F Pulse Rate 89 57 Respiratory Rate 18 16 Blood Pressure 137/87 144/76 H Pulse Oximetry 100 98 Oxygen Delivery Method Room Air Room Air BMI result Body Mass Index 27.3 Const General: cooperative, no acute distress, alert and awake Nutritional Appearance: well nourished Orientation/consciousness: patient oriented x3 Limitations: no limitations HENMT Head: Yes normal to inspection and Yes atraumatic Ears: hearing grossly normal bilaterally and external ears normal General nose exam: Normal external nose present, no nasal discharge noted and no epistaxis Face and sinus: Yes normal facial exam, No abrasion and No laceration Mouth: Normal oral and palatal mucosa present, no drooling and no muffled voice Eyes General: appearance normal, both eyes and all related structures Periorbital: periorbital findings normal Eyelids: Yes eyelids normal Conjunctivae: conjunctivae normal Pupils: Equal, round and reactive pupils present EOM: EOMs intact bilaterally Neck Neck: Yes normal visual inspection, Yes full ROM and Yes no lymphadenopathy Chest Chest palpation & inspection: normal inspection of the chest Resp Effort & Inspection: normal respiratory effort and able to speak in complete sentences Auscultation: clear to auscultation bilaterally Cardio Rate: regular rate Rhythm: regular rhythm GI Inspection: Yes normal to inspection Palpation (GI): Soft to palpation, not firm, nontender and no guarding Neuro General: patient oriented x3 and moves all extremities Cranial nerves: Yes Equal, round and reactive pupils present Cognition (Neuro): normal cognition Motor exam (neuro): 5/5 motor strength present throughout Sensory Exam: Normal double simultaneous stimulation for sensation Coordination: [id number] test normal Extrem General: Yes normal to inspection, Yes full ROM and Yes capillary refill normal Psych Appearance: grossly normal Mental Status: mental status grossly normal Affect: normal affect Attitude: cooperative Thought process: Normal thought process present Thought content: Normal thought content present Insight: Good insight present (Psych) Medical Decision Making Medical Decision Making MDM Narrative: Patient is a 57 year old assigned male at with a history of substance abuse presenting to the emergency department today after almost falling into the street. Patient's physical exam showed an obviously intoxicated male but was otherwise unremarkable. I explained my physical exam findings to the patient. I answered all questions asked by the patient. Patient to rest in the department until clinically sober or he has a sober individual to come pick him and agree to take on his well-being. I stressed the importance of the patient taking his medication as prescribed. I stressed the importance of the patient following up with his primary care provider. I stressed the importance of the patient returning to the emergency department immediately if his symptoms were to worsen or if he were to develop any dizziness, shortness of breath, difficulty breathing, chest pain, blurry vision, loss of vision, nausea, vomiting, abdominal pain, fever, chills, back pain, or any other complaints. Patient verbalized agreement and understanding with this treatment plan and resting in the department until clinically sober. Differential Diagnosis Differential Diagnoses: The differential diagnosis associated with the presentation includes intoxication Independent Historian Clinical information obtained from an independent historian. History obtained from or confirmed by: EMS Discharge Plan Discharge Clinical Impression: Alcohol intoxication Patient Disposition: Still a Patient Prescriptions: No Action buprenorphine-naloxone [Suboxone] 8-2 mg film 2 strip sublingual DAILY
[2022-12-02 15:30] VITALS: BP 144/76; PULSE 57; RESP 16; TEMP 36.6; O2SAT 98
[2022-12-02 19:00] VITALS: BP 140/78; PULSE 54; RESP 16; TEMP 36.6; O2SAT 98
== END 2022-12-02 19:58 | disposition home or self-care (01) ==
PROVIDERS: Emergency Provider Emergency Medicine; PCP Family Medicine
DX: F10.129 Alcohol abuse with intoxication, unspecified (principal); Y90.9 Presence of alcohol in blood, level not specified; F14.10 Cocaine abuse, uncomplicated; F17.210 Nicotine dependence, cigarettes, uncomplicated; Z79.899 Other long term (current) drug therapy; Z71.6 Tobacco abuse counseling
CPT/HCPCS: 99283

== ENCOUNTER 2022-12-06 09:59 | Emergency (ER) | payer MEDICAID, SELFPAY ==
[2022-12-06 10:08] VITALS: BP 104/83; BP 140/76; PULSE 112; PULSE 84; RESP 16; TEMP 36.7; O2SAT 94; O2SAT 96; BMI 26.9
--- NOTE | 2022-12-06 10:14 | MHC.EDTECH ---
Vitals completed, called security to slubber frame changer pt
--- NOTE | 2022-12-06 10:47 | ED_ITS ---
HPI - Alcohol General Chief Complaint: ETOH/Substance Use Stated Complaint: ETOH Time Seen by Provider: 12/06/22 10:21 Source: patient and EMS Mode of arrival: EMS Limitations: no limitations History of Present Illness HPI narrative: This is a 57-year-old male with a history of polysubstance use who presents to the ER after he was found sitting on the ground and [place] outside the library with concern from EMS that patient had substances on board. Patient reports that he found out just prior to EMS arrival that his sister and he was angry so he was punching the air. Patient denies any use of alcohol or substances today but states he does have a history of same. He has no complaints of SI or HI. He has no physical complaints. He is not interested in detox or any detox resources at this time. He tells me he would like to leave because he has to get home to help make arrangements for his sister. Related Data Home Medications Medication Instructions Recorded Confirmed buprenorphine 8 mg-naloxone 2 mg 2 strip sublingual DAILY 07/30/22 07/30/22 sublingual film (Suboxone) Allergies Allergy/AdvReac Type Severity Reaction Status Date / Time No Known Allergies Allergy Verified 10/11/22 07:10 [No Known Allergies*] Review of Systems Review of Systems: Yes all other systems are reviewed and are negative Constitutional: Constitutional: Reports no additional constitutional complaints, Denies body ache(s), Denies chills, Denies fever(s), Denies headache(s) and Denies weakness Eyes: Eyes: Reports no additional eye complaints and Denies change in vision ENT: Reports system reviewed and no additional complaints, except as documented, Denies dizziness, Denies headache(s), Denies nasal congestion, Denies nasal discharge and Denies neck pain Cardiovascular: Cardiovascular: Reports no additional cardiovascular complaints, Denies chest pain, Denies leg edema and Denies dyspnea Respiratory: Respiratory: Reports no additional respiratory complaints, Denies cough and Denies dyspnea Gastrointestinal: Gastrointestinal: Reports no additional gastrointestinal complaints, Denies abdominal pain, Denies diarrhea, Denies nausea and Denies vomiting Genitourinary: Genitourinary: Denies urinary incontinence Musculoskeletal: Musculoskeletal: Reports no additional musculoskeletal complaints, Denies back pain, Denies arthralgias, Denies joint swelling, Denies neck pain, Denies numbness and Denies tingling Integumentary/Breasts: Skin/Breast: Reports system reviewed and no additional complaints, except as docu and Denies rash Neurologic: Reports system reviewed and no additional complaints, except as documented, Denies dizziness, Denies headache(s), Denies numbness, Denies tingling and Denies weakness PMFSH Past Medical History Attestation statement: The following information was validated with the patient. Source: old records reviewed and nursing notes reviewed Medical History Atypical bipolar disorder B12 deficiency Chronic post-traumatic stress disorder (PTSD) Chronic schizophrenia Cocaine use disorder Depressive disorder Heroin use Opioid use disorder, moderate, in early remission, on maintenance therapy, dependence Social History Social History Household Members: Significant Other Household Members Other:: plans to move in with sister after discharge Housing: Unknown / Unable to assess Housing Other:: pt plans on living with his sister after D/C Do you presently have visiting nurse or other home services: No Alcohol intake: never Patient Tobacco Use Status: Current everyday Tobacco user Tobacco use type: Cigarette Cigarette Packs Per Day: 0.5 Cigarettes Per Day: 10.0 Years Smoked: 20 Smoked in Last 30 Days: No e-Cigarette/Vaping Use: Never Used Second Hand Smoke Exposure: Yes Use of substances other than those prescribed or required for medical reasons: No Substance Use Type: Crack/Cocaine Advance Directives: No Advance Directives Information Provided: Yes service: No Sexual orientation: Straight/Heterosexual Physical Exam ED Vital Signs: Vital Signs - 24 hr 12/06/22 10:08 Temperature 98.1 F Pulse Rate 84 Respiratory Rate 16 Blood Pressure 104/83 Pulse Oximetry 94 Oxygen Delivery Method Room Air BMI result Body Mass Index 26.9 Const General: cooperative, healthy appearing, comfortable and no acute distress Orientation/consciousness: patient oriented x3 Limitations: no limitations HENMT Head: Yes normal to inspection Ears: hearing grossly normal bilaterally Eyes General: appearance normal, both eyes and all related structures Pupils: Equal, round and reactive pupils present Neck Neck: Yes normal visual inspection and Yes full ROM Chest Chest palpation & inspection: normal inspection of the chest Resp Effort & Inspection: normal respiratory effort Auscultation: clear to auscultation bilaterally Cardio Rate: regular rate Rhythm: regular rhythm Peripheral pulses: Peripheral pulses 2+ throughout GI Inspection: Yes normal to inspection Palpation (GI): Soft to palpation and nontender General: Yes no CVA tenderness Back/Spine/Pelvis Back: no CVA tenderness Thoracic/Lumbar Spine: thoracic and lumbar spine normal to inspection Skin General skin exam: no rashes or lesions noted Neuro General: patient oriented x3 and moves all extremities Cranial nerves: Yes Equal, round and reactive pupils present Cognition (Neuro): normal cognition Gait exam (Neuro): Normal gait present Motor exam (neuro): 5/5 motor strength present throughout Sensory Exam: Normal double simultaneous stimulation for sensation Extrem General: Yes normal to inspection Medical Decision Making Medical Decision Making MDM Narrative: 57-year-old male with a history of polysubstance use presents to the ER with concern for change in behavior from EMS. patient on arrival is alert oriented x3. Normal neurological exam. Vitals are stable. He denies current substance use. However patient is a multiple visits for substance use the past. He does not want to speak to any detox team or to obtain any detox resources. He is not suicidal or homicidal. He walked with me around the ER with a steady gait. Clinically patient is sober.. Plan for discharge Differential Diagnosis Differential Diagnoses: The differential diagnosis associated with the presentation includes polysubstance Discharge Plan Discharge Clinical Impression: Polysubstance use disorder Patient Disposition: Home, Self-Care Instructions: Polysubstance Abuse (ED) Prescriptions: No Action buprenorphine-naloxone [Suboxone] 8-2 mg film 2 strip sublingual DAILY Referrals: [facility] [Primary Care Provider] - 1 week Interventions: ED Discharge Assessment Last Done: 12/06/22 11:07 Discharge Date/Time: 12/06/22 11:16
--- NOTE | 2022-12-06 11:00 | MHC.RECOVSUP ---
Pt is not interested in ATS or recovery support.
== END 2022-12-06 11:16 | disposition home or self-care (01) ==
PROVIDERS: Emergency Provider Emergency Medicine
DX: F19.10 Other psychoactive substance abuse, uncomplicated (principal); F11.20 Opioid dependence, uncomplicated; F17.210 Nicotine dependence, cigarettes, uncomplicated
CPT/HCPCS: 99283; 99284

== ENCOUNTER 2022-12-10 16:16 | Emergency (ER) | payer MEDICAID, SELFPAY ==
--- NOTE | ~2022-12-10 | CT_ITS ---
EXAMINATION: CT head/brain wo IV con CLINICAL INFORMATION: Reason for Exam acute head injury intoxication COMPARISON: CT brain 10/10/2022 TECHNIQUE: Contiguous axial imaging was performed from the skull base to vertex without intravenous contrast. Sagittal and coronal reformatted images were obtained. This CT examination was performed using dose optimization techniques as appropriate, variously including the following: * Automated exposure control * Adjustment of mA and/or kV according to patient size (this includes techniques or standardized protocols for targeted exams where dose is matched to indication/reason for exam; i.e. extremities or head) Use of iterative reconstruction technique DLP: 824 mGy-cm FINDINGS: No acute osseous or soft tissue abnormality. The mastoid air cells and visualized portions of the paranasal sinuses are well aerated. There is no evidence of acute intracranial hemorrhage or territorial infarction. No abnormal mass effect or midline shift is seen. Left parietal and right occipital foci of encephalomalacia which may reflect sequelae of remote infarct similar to prior. No extra-axial fluid collections are identified. No hydrocephalus. CT/CT head/brain wo IV con IMPRESSION: 1. No acute intracranial abnormality. 2. Left parietal and right occipital foci of encephalomalacia which may reflect sequelae of remote infarct similar to prior.
[2022-12-10 16:27] VITALS: BP 190/112; PULSE 88
[2022-12-10 16:34] VITALS: BP 115/61; PULSE 88; RESP 14; TEMP 36.6; O2SAT 94; BMI 25.8
--- NOTE | 2022-12-10 16:41 | ED_ITS ---
HPI - General Adult General Chief complaint: ETOH/Substance Use Stated complaint: UNWIT FALL,ABR TO FOREHEAD PER EMS Time Seen by Provider: 12/10/22 16:31 Source: patient and EMS Mode of arrival: EMS Limitations: other (Intoxication) History of Present Illness HPI narrative: 57-year-old male with history of schizoaffective disorder and polysubstance abuse presents with a possible head injury. Patient admits to polysubstance use today. He denies any falls or head injury. He said he he scratched his forehead with a can. He denies any headache, chest pain, nausea, vomiting. He does have a known abdominal hernia. Denies any abdominal pain, nausea, vomiting, diarrhea, constipation, failure to pass flatus. He denies suicidal homicidal ideation. His symptoms are usually exacerbated by substance use. Isabelle whyte is asking to be discharged at this time Related Data Home Medications Medication Instructions Recorded Confirmed buprenorphine 8 mg-naloxone 2 mg 2 strip sublingual DAILY 07/30/22 07/30/22 sublingual film (Suboxone) Allergies Allergy/AdvReac Type Severity Reaction Status Date / Time No Known Allergies Allergy Verified 10/11/22 07:10 [No Known Allergies*] PMFSH Past Medical History Medical History Atypical bipolar disorder B12 deficiency Chronic post-traumatic stress disorder (PTSD) Chronic schizophrenia Cocaine use disorder Depressive disorder Heroin use Opioid use disorder, moderate, in early remission, on maintenance therapy, dependence Social History Social History Household Members: Significant Other Household Members Other:: plans to move in with sister after discharge Housing: Unknown / Unable to assess Housing Other:: pt plans on living with his sister after D/C Do you presently have visiting nurse or other home services: No Alcohol intake: never Patient Tobacco Use Status: Current everyday Tobacco user Tobacco use type: Cigarette Cigarette Packs Per Day: 0.5 Cigarettes Per Day: 10.0 Years Smoked: 20 e-Cigarette/Vaping Use: Never Used Second Hand Smoke Exposure: Yes Substance Use Type: Crack/Cocaine Advance Directives: No service: No Sexual orientation: Straight/Heterosexual Physical Exam ED Vital Signs: Vital Signs - 24 hr 12/10/22 16:34 Temperature 97.9 F Pulse Rate 88 Respiratory Rate 14 Blood Pressure 115/61 Pulse Oximetry 94 Oxygen Delivery Method Room Air BMI result Body Mass Index 25.8 GEN: Well developed, no acute distress, alert, oriented HEENT: Normocephalic, atraumatic, normal external ears, nose appears normal, no oropharyngeal edema or exudates Eyes: Normal to appearance Neck: Supple, no lymphadenopathy Respiratory: Talks in complete sentences, no respiratory distress, clear to auscultation bilaterally Cardiovascular: Regular rate and rhythm, no murmurs rubs or gallops Abdomen: Soft, nontender, nondistended, no guarding, no rebound, umbilical hernia Back: No CVA tenderness Extremities: No clubbing cyanosis or edema Neurologic: No focal neurologic deficits, cranial nerves 2-12 intact, strength is 5/5 bilaterally Psych: Slight psychomotor agitation, restlessness, redirectable, no SI or HI likely intoxicated Skin: No rash Course Course Course Narrative: 57-year-old male with history of schizoaffective disorder and polysubstance use presents with intoxication head injury. He is ambulating with stable gait. This is baseline status per frequent visits to the emergency department. He denies hitting his head however there is evidence of trauma to the forehead. Will obtain a CT scan of the head to rule out intracranial bleeding. Patient is a [place] to this would like to be discharged when able. Patient denies suicidal homicidal ideation. He does not appear to pose an immediate threat to himself or others. Once his imaging studies complete with results, I do believe patient will likely be able to be discharged. Will re-evaluate at that time Medical Decision Making Medical Decision Making MDM Narrative: Male with schizoaffective disorder, polysubstance abuse presents with possible acute head injury. He has abrasion to the forehead. Otherwise, he denies any complaints. Has no headache, photophobia, phonophobia, neck pain. He admits to polysubstance use today. He denies suicidal homicidal ideation. Does have history of schizoaffective disorder. His symptoms appear to be stable in nature any of his issues appear to be substance induced. As patient poses no imminent threat to himself or others, I do believe patient could safely be discharged once his workup is complete. Will re-evaluate at that time. In the meantime, will rule out subdural hematoma, epidural hematoma, subarachnoid hemorrhage or other acute intracranial trauma. Differential Diagnosis Differential Diagnoses: The differential diagnosis associated with the presentation includes (See above) Admission/Observation Consideration of admission/observation: Escalation of care including admission/observation considered Independent Interpretation I performed an independent interpretation of an: CT Scan (HEAD: NAD) Radiology Impression Discussion of test interpretation with radiology: I have reviewed the radiologist's reading. Radiologist Impression: CT/CT head/brain wo IV con IMPRESSION: 1.? No acute intracranial abnormality. 2.? Left parietal and right occipital foci of encephalomalacia which may reflect sequelae of remote infarct similar to prior. ? Dictated By: Sabine Mackay MD Signed By: <Electronically signed by Sabine Mackay MD in OV> 12/10/22 1802 Independent Historian Clinical information obtained from an independent historian. History obtained from or confirmed by: EMS Prescription Management I considered prescription management with: Other (Psychiatric medication) Discharge Plan Discharge Clinical Impression: Acute head injury, Polysubstance abuse, Abrasion of forehead Patient Disposition: Home, Self-Care Instructions: Mood Disorders (ED), Head Injury (ED), Abrasion (ED), Polysubstance Abuse (ED) Prescriptions: No Action buprenorphine-naloxone [Suboxone] 8-2 mg film 2 strip sublingual DAILY Referrals: [facility] [Primary Care Provider] -
== END 2022-12-10 18:57 | disposition home or self-care (01) ==
PROVIDERS: Emergency Provider Emergency Medicine
DX: S09.90XA Unspecified injury of head, initial encounter (principal); S00.81XA Abrasion of other part of head, initial encounter; R51.9 Headache, unspecified; F14.10 Cocaine abuse, uncomplicated; F17.210 Nicotine dependence, cigarettes, uncomplicated; W01.0XXA Fall on same level from slipping, tripping and stumbling without subsequent striking against object, initial encounter; Y93.9 Activity, unspecified; Y92.9 Unspecified place or not applicable; Y99.9 Unspecified external cause status; Z71.6 Tobacco abuse counseling
CPT/HCPCS: 70450; 99282; 99284

== ENCOUNTER 2022-12-13 11:15 | Emergency (ER) | payer MEDICAID, SELFPAY ==
[2022-12-13 11:24] VITALS: BP 144/82; PULSE 104; O2SAT 95
[2022-12-13 11:25] VITALS: BMI 26.9
[2022-12-13 11:27] VITALS: BP 92/65; PULSE 86; RESP 19; TEMP 36.8; O2SAT 94
--- NOTE | 2022-12-13 11:27 | ED.PSYCH ---
HPI - Psych General Chief Complaint: ETOH/Substance Use Stated Complaint: crisis Time Seen by Provider: 12/13/22 11:23 Source: patient, RN notes reviewed and old records reviewed Mode of arrival: ambulatory History of Present Illness HPI Narrative: 57-year-old male with a past medical history bipolar, PTSD, schizophrenia, substance use disorder, presenting to ED via EMS s/p being found outside of [place] [employer] yelling and harassing bystanders. Per EMS mall security found heroin on patient. Patient denies illicit substance use or EtOH. Denies SI/HI, injury/trauma or fall MD complaint: substance abuse Related Data Home Medications Medication Instructions Recorded Confirmed buprenorphine 8 mg-naloxone 2 mg 2 strip sublingual DAILY 07/30/22 07/30/22 sublingual film (Suboxone) Allergies Allergy/AdvReac Type Severity Reaction Status Date / Time No Known Allergies Allergy Verified 10/11/22 07:10 [No Known Allergies*] Review of Systems Review of Systems: Constitutional: No Fever, No Chills, No Fatigue, No Malaise Cardiovascular: No Chest Pain, No SOB Respiratory: No Cough, No Sputum, No Dyspnea Gastrointestinal: No Nausea, No Vomiting, No Diarrhea, No Constipation, No Abdominal pain Musculoskeletal: No joint pain, No Myalgias, No Joint Swelling Skin: No Skin Lesions, No rash Neuro: No Weakness, No Headache Psych: No Anxiety/Panic, No Depression, No SI/HI/AH/VH, No Social Issues Yes all other systems are reviewed and are negative Constitutional: Constitutional: Reports as per HPI [facility] Past Medical History Attestation statement: The following information was validated with the patient. Source: old records reviewed Medical History Atypical bipolar disorder B12 deficiency Chronic post-traumatic stress disorder (PTSD) Chronic schizophrenia Cocaine use disorder Depressive disorder Heroin use Opioid use disorder, moderate, in early remission, on maintenance therapy, dependence Social History Social History Household Members: Significant Other Household Members Other:: plans to move in with sister after discharge Housing: Unknown / Unable to assess Housing Other:: pt plans on living with his sister after D/C Do you presently have visiting nurse or other home services: No Alcohol intake: never Patient Tobacco Use Status: Current everyday Tobacco user Tobacco use type: Cigarette Cigarette Packs Per Day: 0.5 Cigarettes Per Day: 10.0 Years Smoked: 20 e-Cigarette/Vaping Use: Never Used Second Hand Smoke Exposure: Yes Substance Use Type: Crack/Cocaine Advance Directives: No service: No Sexual orientation: Straight/Heterosexual Physical Exam Vital Signs: Vital Signs: Last Vital Signs Temp 98.3 F 12/13/22 11:27 Pulse 86 12/13/22 11:27 Resp 19 12/13/22 11:27 BP 92/65 12/13/22 11:27 Pulse Ox 94 12/13/22 11:27 O2 Del Method Room Air 12/13/22 11:27 BMI result Body Mass Index 26.9 Const: Other: Under the influence, dancing in room, pleasant General: cooperative and no acute distress Orientation/consciousness: patient oriented x3 Limitations: no limitations HEENT: Head: Yes normal to inspection and Yes atraumatic Ears: hearing grossly normal bilaterally General nose exam: Normal external nose present Face and sinus: Yes normal facial exam Eyes: General: appearance normal, both eyes and all related structures EOM: EOMs intact bilaterally Neck: Neck: Yes normal visual inspection and Yes no meningeal signs Resp: Effort & Inspection: normal respiratory effort and no respiratory distress Auscultation: clear to auscultation bilaterally Cardio: Rate: regular rate Heart sounds: S1 normal heart sound present and S2 normal heart sound present GI: Other: Periumbilical hernia noted, reducible, nontender Inspection: Yes normal to inspection Palpation (GI): Soft to palpation, nontender, no guarding and not rigid Skin: Rashes: no rashes Wounds: no wounds Neuro: General: patient oriented x3, gait normal, tone normal, moves all extremities, no meningeal signs and CN's II-XI intact bilaterally Gait exam (Neuro): Normal gait present Extrem: General: Yes normal to inspection Psych: Thought content: suicidality and no homicidality Course Course Course Narrative: -[id number]--patient ambulating in the ED with steady gait, tolerating p.o., A&O x3, safe for discharge at this time Results discussed with patient including worrisome signs and symptoms and strict return precautions, and when to return to the emergency department. They verbalized understanding and feel safe for discharge at this time. Medical Decision Making Medical Decision Making MDM Narrative: 57-year-old male with a past medical history bipolar, PTSD, schizophrenia, substance use disorder, presenting to ED via EMS s/p being found outside of [facility] yelling and harassing bystanders. On exam vital signs stable, NAD, nontoxic appearing, appears under the influence, dancing in room, common cooperative, pleasant, A&O x3, denies SI/HI. Plan: Observe and reassess Please refer to course for remaining clinical decision making, interpretation of labs/imaging results, and discussions with consultants and/or family members. Differential Diagnosis Differential Diagnoses: The differential diagnosis associated with the presentation includes As above Admission/Observation Consideration of admission/observation: Escalation of care including admission/observation considered Lab Data [facility] Lab Attestation statement: I reviewed the patient's lab results. Labs: Lab Results 12/13/22 Range/Units 12:40 Urine Opiates Screen POSITIVE H (Not Detect) Urine Fentanyl Screen POSITIVE H (Not Detect) Ur Barbiturates Screen Not Detected (Not Detect) Ur Phencyclidine Scrn Not Detected (Not Detect) Ur Amphetamines Screen Not Detected (Not Detect) U Benzodiazepines Scrn Not Detected (Not Detect) Urine Cocaine Screen POSITIVE H (Not Detect) U Marijuana (THC) Screen Not Detected (Not Detect) Radiology Impression Discussion of test interpretation with radiology: I have reviewed the radiologist's reading. External Record Review External record reviewed: Inpatient record, Office record, Outpatient record, Prior outpatient labs, Prior outpatient radiology, Primary care record and Outside ED record Tests considered The following testing was considered but not selected: As above Discharge Plan Discharge Clinical Impression: Active substance abuse Patient Disposition: Home, Self-Care Instructions: Polysubstance Abuse (ED) Additional Instructions: Please avoid alcohol and drug use, this can kill you. Follow up with your doctor Continue home medications Prescriptions: No Action buprenorphine-naloxone [Suboxone] 8-2 mg film 2 strip sublingual DAILY Referrals: [facility] [Provider Group] [facility] [Outside] [place],[facility] [Primary Care Provider] - Interventions: ED Discharge Assessment Last Done: 12/13/22 12:56 Discharge Date/Time: 12/13/22 12:56
--- NOTE | 2022-12-13 12:20 | PC.NURSE ---
patient is restless, unable to sit still. dancing in the ER treatment room. cooperative with staff
[2022-12-13 12:57] LABS: Amphetamine Screen Urine Not Detected (Not Detect); Barbiturates, Urine Not Detected (Not Detect); Benzodiazepines Screen Urine Not Detected (Not Detect); Cannabinoid Screen Urine Not Detected (Not Detect); Cocaine Screen Urine POSITIVE (Not Detect); Fentanyl, urine POSITIVE (Not Detect); Opiate Screen Urine POSITIVE (Not Detect); Phencyclidine Screen Urine Not Detected (Not Detect)
== END 2022-12-13 12:56 | disposition home or self-care (01) ==
PROVIDERS: Physician Assistant; Emergency Provider Emergency Medicine
DX: F11.129 Opioid abuse with intoxication, unspecified (principal); F14.10 Cocaine abuse, uncomplicated; F17.210 Nicotine dependence, cigarettes, uncomplicated; Z71.6 Tobacco abuse counseling; Z79.899 Other long term (current) drug therapy
CPT/HCPCS: 80307; 99283

== ENCOUNTER 2023-03-10 05:42 | Emergency (ER) | payer MEDICAID, SELFPAY ==
--- NOTE | ~2023-03-10 | CT_ITS ---
EXAMINATION: CT HEAD WITHOUT CONTRAST CLINICAL INFORMATION: Head strike. COMPARISON: Head CT scan dated 12/10/2022. TECHNIQUE: Contiguous axial imaging was performed from the skull base to vertex without intravenous administration of contrast. Coronal and sagittal reformatted images were obtained. This CT examination was performed using dose optimization techniques as appropriate, variously including the following: *Automated exposure control *Adjustment of mA and/or kV according to patient size (this includes techniques or standardized protocols for targeted exams where dose is matched to indication/reason for exam; i.e. extremities or head) *Use of iterative reconstruction technique DLP: 956 mGy-cm FINDINGS: The cortical sulci are normal. The lateral ventricles are symmetrical. The third and fourth ventricles are in their normal midline position. The basilar and prepontine cisterns are unremarkable. Focal parietal occipital areas of encephalomalacia are again seen without significant change. There is no acute intra or extracerebral abnormality. There is no mass effect or midline shift. Sections through the bony calvarium are unremarkable. The paranasal sinuses show mild mucosal thickening in the ethmoid sinuses bilaterally. The bony orbits and orbital contents are unremarkable. CT/CT head/brain wo IV con IMPRESSION: No acute intracranial pathology.
[2023-03-10 05:45] VITALS: BP 154/84; PULSE 54; O2SAT 97
[2023-03-10 06:01] VITALS: BP 125/93; PULSE 62; RESP 14; TEMP 36.4; O2SAT 96; BMI 24.0
[2023-03-10 06:36] LABS: Appearance Urine Clear; Color Urine Yellow; Glucose Urine UA Negative (Negative); Leukocyte Esterase Urine Negative (Negative); Nitrite Urine Negative (Negative); PH 5.5 (5.0-9.0); Specific Gravity - Urine 1.025 (1.005-1.025); UMIC TRIGGER UACC YES; Urine Blood Small (1+) (Negative); Urine Ketones Trace mg/dL (Negative); Urine Protein Trace mg/dL (Neg-Trace)
[2023-03-10 06:41] LABS: Bacteria Urine None Seen (None Seen); Squamous Epithelial Cell Urine 0-2 /HPF (0-2); WBC Urine 0-5 /HPF (0-5)
[2023-03-10 06:45] LABS: Amphetamine Screen Urine Not Detected (Not Detect); Barbiturates, Urine Not Detected (Not Detect); Benzodiazepines Screen Urine Not Detected (Not Detect); Cannabinoid Screen Urine Not Detected (Not Detect); Cocaine Screen Urine POSITIVE (Not Detect); Fentanyl, urine POSITIVE (Not Detect); Opiate Screen Urine POSITIVE (Not Detect); Phencyclidine Screen Urine Not Detected (Not Detect)
--- NOTE | 2023-03-10 06:46 | PC.NURSE ---
MLP at bedside.
--- NOTE | 2023-03-10 07:02 | ED.GENADULT ---
HPI - General Adult General Chief complaint: ETOH/Substance Use Stated complaint: Substance Abuse Time Seen by Provider: 03/10/23 06:38 Source: EMS Mode of arrival: EMS Limitations: other (poor historian ) History of Present Illness HPI narrative: 57-year-old male history of opiate use disorder, PTSD, schizoaffective disorder, depression presenting to the emergency department status post being found by bystanders nodding off while standing in the street, patient reported to EMS and nursing that he snorted 1 bag of heroin. He was never given Narcan. When I asked patient why he is here he states I think I fell, when I asked him if he hit his head he goes I think so. Unable to answer any more my questions, nodding off during my history and review of systems. Telling me he feels tired. Unable to obtain an accurate review of systems and history. Related Data Home Medications Medication Instructions Recorded Confirmed buprenorphine 8 mg-naloxone 2 mg 2 strip sublingual DAILY 07/30/22 07/30/22 sublingual film (Suboxone) Previous Rx's Medication Instructions Recorded naloxone 4 mg/actuation nasal 4 mg intranasal Q2M PRN opioid 03/10/23 spray (Narcan) overdose #2 ea Allergies Allergy/AdvReac Type Severity Reaction Status Date / Time No Known Allergies Allergy Verified 10/11/22 07:10 [No Known Allergies*] Review of Systems Review of Systems: Yes Unobtainable due to mental status PMFSH Past Medical History Attestation statement: The following information was validated with the patient. Source: old records reviewed and nursing notes reviewed Medical History Atypical bipolar disorder B12 deficiency Chronic post-traumatic stress disorder (PTSD) Chronic schizophrenia Cocaine use disorder Depressive disorder Heroin use Opioid use disorder, moderate, in early remission, on maintenance therapy, dependence Social History Social History Household Members: Significant Other Household Members Other:: plans to move in with sister after discharge Housing: Unknown / Unable to assess Housing Other:: pt plans on living with his sister after D/C Do you presently have visiting nurse or other home services: No Alcohol intake: never Patient Tobacco Use Status: Current everyday Tobacco user Tobacco use type: Cigarette Cigarette Packs Per Day: 0.5 Cigarettes Per Day: 10.0 Years Smoked: 20 e-Cigarette/Vaping Use: Never Used Second Hand Smoke Exposure: Yes Substance Use Type: Crack/Cocaine Advance Directives: No Advance Directives Information Provided: No service: No Sexual orientation: Straight/Heterosexual Physical Exam ED Vital Signs: Vital Signs - 24 hr 03/10/23 06:01 Temperature 97.6 F Pulse Rate 62 Respiratory Rate 14 Blood Pressure 125/93 H Pulse Oximetry 96 Oxygen Delivery Method Room Air BMI result Body Mass Index 24.0 Vital signs stable Appearance: Alert.? Oriented X3.? No acute distress.? However, noted to be nodding off during his examination Head: Normocephalic, atraumatic, no step-offs or deformities Eyes: Pupils equal, round and reactive to light.? ENT: Pharynx normal.? Neck: Normal inspection.? Neck supple.? CVS: Normal heart rate and rhythm.? Pulses normal.? Respiratory: No respiratory distress.? Breath sounds normal.? Abdomen: Soft and nontender.? Skin: Skin warm and dry.? Normal skin color.? Normal skin turgor.? Extremities: No lower extremity edema.? No calf ttp. 5/5 strength to bilateral upper and lower extremities Neuro: Oriented X 3.? No motor deficit.? No sensory deficit. CN 2-12 intact intermittently following commands and answering questions appropriately Course Reevaluation(s) Reevaluation #1: UA without infection. Urine toxicology positive for opiates, fentanyl, cocaine. Head CT basic labs pending. Time: 07:08 Reevaluation #2: Head CT no acute intracranial pathology. Labs pending however patient does not want labs. At this time patient to be placed into observation to allow more time for patient to become clinically sober. Time: 08:28 Medical Decision Making Medical Decision Making [facility] Narrative: 190 57-year-old male presents suspected opiate use disorder/polysubstance abuse. States he fell however poor historian. Not on blood thinners per chart review Upon chart review it appears the patient has been seen here multiple times for active substance abuse, polysubstance abuse, alcohol intoxication, crack cocaine use. With similar presentations. Physical exam benign. Patient intermittently answering questions appropriately. Nodding off during my examination. Respiratory rate of 16, unlabored, breath sounds clear, regular rate and rhythm. Abdomen soft nontender nondistended. Patient is alert and oriented x4 however tells me he is tired and wants to go to school History and physical exam are concerning for polysubstance abuse possible opiate use disorder. Other differentials include acute alcohol intoxication. No evidence of trauma on my exam. Low suspicion for traumatic injury to head, neck, chest, abdomen and pelvis. Unlikely metabolic derangements. Plan at this time is medical clearance, will re-evaluate patient when clinically sober, and readdress whether not he is seeking detox Differential Diagnosis Differential Diagnoses: The differential diagnosis associated with the presentation includes History and physical exam are concerning for polysubstance abuse possible opiate use disorder. Other differentials include acute alcohol intoxication. No evidence of trauma on my exam. Low suspicion for traumatic injury to head, neck, chest, abdomen and pelvis. Unlikely metabolic derangements. Admission/Observation Consideration of admission/observation: Escalation of care including admission/observation considered Unlikely Lab Data MDM Lab Attestation statement: I reviewed the patient's lab results. Labs: Lab Results 03/10/23 03/10/23 Range/Units 06:30 06:30 Urine Color Yellow Urine Appearance Clear Urine pH 5.5 (5.0-9.0) Ur Specific [place] 1.025 (1.005-1.025) Urine Protein Trace (Neg-Trace) mg/dL Urine Glucose (UA) Negative (Negative) mg/dL Urine Ketones Trace (Negative) mg/dL Urine Blood Small (1+) H (Negative) Urine Nitrite Negative (Negative) Ur Leukocyte Esterase Negative (Negative) Urine RBC 11-20 H (0-2) /HPF Urine WBC 0-5 (0-5) /HPF Ur Squamous Epith Cells 0-2 (0-2) /HPF Urine Bacteria None Seen (None Seen) Hyaline Casts 3-5 (0-2) /LPF Urine Opiates Screen POSITIVE H (Not Detect) Urine Fentanyl Screen POSITIVE H (Not Detect) Ur Barbiturates Screen Not Detected (Not Detect) Ur Phencyclidine Scrn Not Detected (Not Detect) Ur Amphetamines Screen Not Detected (Not Detect) U Benzodiazepines Scrn Not Detected (Not Detect) Urine Cocaine Screen POSITIVE H (Not Detect) U Marijuana (THC) Screen Not Detected (Not Detect) Core Measures AMI core measures followed: Yes Measure exclusions: not indicated Critical Care Time Critical Care Time Critical Care Time: No Discharge Plan Discharge Clinical Impression: Active substance abuse Patient Disposition: Home, Self-Care Instructions: Polysubstance Abuse (ED) Additional Instructions: Take your medications as prescribed. If you were prescribed antibiotics today, it is important that you take your medication to their entirety, do not skip any doses, do not finish them early. Follow-up with your primary care provider this week. Return to the emergency department with new or worsening symptoms. Such as fevers, chills, chest pain, shortness of breath, nausea, vomiting, dizziness, headache, vision changes, lethargy In case of emergency call 911 Prescriptions: New naloxone [Narcan] 4 mg/actuation spray,non-aerosol 4 mg intranasal Q2M PRN (Reason: opioid overdose) Qty: 2 0RF Rx Instructions: spray 1 dose into ONE nostril; alternate nostrils w each dose until help arrives No Action buprenorphine-naloxone [Suboxone] 8-2 mg film 2 strip sublingual DAILY Referrals: [facility] [Primary Care Provider] - 2 days
[2023-03-10 09:10] VITALS: BP 150/88; PULSE 46; RESP 16; O2SAT 100
--- NOTE | 2023-03-10 10:17 | PC.NURSE ---
skin pwd. falls asleep sitting up eating.
--- NOTE | 2023-03-10 14:07 | PC.NURSE ---
PT AWAKE AND DENIES ANY SI/HI , ANTICIPATE DISCHARGE, HE IS TOLERATING PO INTAKE
--- NOTE | 2023-03-10 14:14 | PC.NURSE ---
transfered to recliner. denies SI. falls asleep w/o interactions
== END 2023-03-10 14:32 | disposition home or self-care (01) ==
PROVIDERS: Emergency Provider Emergency Medicine
DX: F11.129 Opioid abuse with intoxication, unspecified (principal); F14.10 Cocaine abuse, uncomplicated; F17.210 Nicotine dependence, cigarettes, uncomplicated; R51.9 Headache, unspecified; Z71.6 Tobacco abuse counseling; Z79.899 Other long term (current) drug therapy
CPT/HCPCS: 70450; 80307; 81001; 99284

== ENCOUNTER 2023-09-24 10:31 | Outpatient (REF) | payer MEDICAID, SELFPAY ==
[2023-09-24 11:29] LABS: Hematocrit 49.4 % (42.0-52.0); Hemoglobin 16.5 g/dl (14.0-18.0); Mean Corpuscular HGB Conc 33.4 g/dl (31.0-36.0); Mean Corpuscular Hemoglobin 28.5 pg (27.0-33.0); Mean Corpuscular Volume 85.3 fL (80.0-98.0); Mean Platelet Volume 10.3 fL (9.4-12.4); Platelet Count 175 X10*3/uL (160-400); Red Blood Count 5.79 X10*6/uL (4.60-5.80); Red Cell Distribution Width 12.3 % (11.0-16.0); White Blood Count 5.2 X10*3/uL (4.8-10.8)
[2023-09-24 11:41] LABS: Estimated Average Glucose 114 mg/dL; Hemoglobin A1c % 5.6 % (<6.0)
[2023-09-24 12:06] LABS: Alanine Aminotransferase 28 U/L (0-40); Albumin Level 4.2 g/dL (3.5-5.0); Alkaline Phosphatase 80 U/L (39-117); Anion Gap 11 (12-20); Aspartate Amino Transferase 23 U/L (5-37); Bilirubin Total 0.4 mg/dL (0.0-1.0); Blood Urea Nitrogen 15 mg/dL (9-16); Calcium 9.7 mg/dL (8.4-10.2); Carbon Dioxide 31 mmol/L (22-29); Chloride 105 mmol/L (96-108); Cholesterol 195 mg/dL (<200); Estimated Glomerular Filt Rate > 60; Glucose Random 92 mg/dL (60-115); HDL Cholesterol 31 mg/dL (>40); LDL Cholesterol Calculated 126 mg/dL (<100); Potassium 4.1 mmol/L (3.3-5.1); Sodium 143 mmol/L (135-145); TSH reflex Free T4 1.06 uIU/mL (0.32-4.0); Total Protein 7.8 g/dL (6.5-8.0); Triglycerides 194 mg/dL (<150)
[2023-09-24 12:24] LABS: Syphilis Screen Nonreactive (Nonreactive)
[2023-09-24 12:25] LABS: HBS Num1 173.05 mIU/mL (0-7.99); HBc Num1 7.35 S/CO (0.00-0.79); HBsAGNum1 0.53 S/CO (0.00-0.99); HIV AB/AG Nonreactive (Nonreactive); HIV Num 1 0.08 S/CO (0.00-0.99); Hepatitis B Surface Antigen Negative (Negative); ~HepC Num1 0.19 S/CO (0.00-0.79); ~Hepatitis B Surface Antibody REACTIVE (Nonreactive); ~Hepatitis C Antibody Nonreactive (Nonreactive)
[2023-09-24 12:27] LABS: Creatinine Urine 79.92 mg/dL; Microalbum/Creatinine Ratio Ur 8.7 ug/mg cr (<30)
[2023-09-24 12:30] LABS: Prostate Specific Antigen 0.87 ng/mL (<0.05-4.0); Vitamin B12 453 pg/mL (200-900)
[2023-09-24 13:24] LABS: HBc Num2 7.16 S/CO; HBc Num3 7.43 S/CO; Hepatitis B Core Antibody Reactive (Nonreactive)
[2023-09-24 13:42] LABS: CT PCR NOT DETECTED (Not Detect.); NG PCR NOT DETECTED (Not Detect.)
[2023-09-27 21:04] LABS: TS Negative Control Passed; TS Panel A 0; TS Panel B 0; TS Positive Control Passed; TSpotTB Negative (Negative)
== END 2023-09-24 10:32 | disposition home or self-care (01) ==
LOC: HO.HHCL 10:31
PROVIDERS: Visit Provider Student in an Organized Health Care Education/Training Program
DX: Z00.00 Encounter for general adult medical examination without abnormal findings (principal)
CPT/HCPCS: 0353U; 36415; 80053; 80061; 82043; 82570; 82607; 82746; 83036; 84153; 84443; 85027; 86481; 86704; 86706; 86780; 86803; 87340; 87389

== ENCOUNTER → 2023-11-04 13:14 | Outpatient (REF) | payer MEDICAID, SELFPAY ==
--- NOTE | 2023-11-04 13:19 | CA_ITS ---
Transthoracic Echocardiogram Patient (Last, First, Middle): Cornell Boucher A Gender: Male Date of : 1965 Age: 58 Procedure Date: 11/04/2023 Procedure Type: Transthoracic Echocardiogram Location: OP Height: 172.72 cm Weight: 90.72 kg BSA: 2.04 m2 Heart Rate: bpm BP: 140 / 90 mmHg Secretary Book Keeper: Referring MD: Alix Santos MD Pigs Feet Cleaner: Igor Colón MD Symptoms: LOWER EXT EDEMA R06.0 Study Quality: Good ECG Rhythm: Sinus Conclusions: - 1. Normal LV ejection fraction 55-60% with mild LVH with impaired relaxation filling pattern 2. Normal cardiac valvular Doppler 3. Mildly dilated ascending aorta 3.9 cm 4. Normal RV systolic pressure 5. No pericardial effusion Findings Left Ventricle Normal left ventricular size and systolic function. There is mildly increased left ventricular wall thickness. The visually estimated ejection fraction is between 55-60%. There is no evidence of regional wall motion abnormalities. Spectral Doppler is indicative of an impaired relaxation filling pattern. E/E prime ratio is between 8 and 15 consistent with indeterminate filling pressures. Peak GLS is -17.1%, which is borderline low. Right Ventricle Normal right ventricular cavity size and systolic function. Atria The left atrium is normal in size. There is no evidence of interatrial shunt. The right atrium is normal in size. Aortic Valve Normal aortic valve structure and function. There is no aortic valve stenosis. There is no aortic valve regurgitation. Mitral Valve Normal mitral valve structure and function. There is trace mitral valve regurgitation. There is no mitral valve stenosis. Pulmonic Valve The pulmonic valve is likely normal. There is no pulmonic valve regurgitation. Tricuspid Valve Normal tricuspid valve structure. There is trace tricuspid valve regurgitation. The right ventricular systolic pressure is normal. The right ventricular systolic pressure is 18 mmHg. Normal right atrial pressure. There is no evidence of pulmonary hypertension. Great Vessels The pulmonary artery was not well visualized. There is mild dilatation of the ascending aorta measuring 3.90 cm. Venous The inferior vena cava is normal in size and collapses greater than 50% with inspiration. Pericardium/Pleural There is no evidence of pericardial effusion. Prior Study Comparison No prior study available for comparison. Measurements 2D Linear Measurements IVSd: 1.23 0.6-0.9/0.6-1.0 cm LVIDd: 4.32 3.9-5.3/4.2-5.9 cm LVIDd Index: 2.12 2.4-3.2/2.2-3.1 cm/m2 LVIDs: 2.73 2.0-3.6 cm LVPWd: 1.26 0.7-1.1 cm Ao Root: 3.50 2.1-3.5 cm LA Diam: 3.20 2.7-3.8/3.0-4.0 cm LAIDs Index: 1.57 1.5-2.3 cm/m2 LV Mass: 244.61 67-162/88-224 g LV Mass Index: 119.91 43-95/49-115 g/m2 LVOT Diam: 2.10 3.0+(-)1.3 cm 2D Systolic Function EF 4C: 54.40 >55% EF 2C: 59.60 >55% EF BiP: 57.80 >55% Mitral Valve MV Pk E: 0.45 MV PK A: 0.63 MV Decel Time: 222.00 E/A: 0.70 E'Lateral: 9.90 E'Medial: 5.98 E/E' Med: 7.60 E/E' Lat: 4.60 PHT: 65.00 MVA PHT: 3.38 Decel [place]: 2.05 Aortic Valve AoV Pk Brett: 1.23 AoV Mn Brett: 0.84 AoV VTI: 0.26 AoV Pk Grad: 6.00 Aov Mn Grad: 3.00 XIAO Cont.VTI: 2.47 LVOT LVOT Pk Brett: 0.96 LVOT Mn Brett: 0.59 LVOT VTI: 0.19 LVOT Pk Grad: 4.00 LVOT Mn Grad: 2.00 LVOT Diam: 2.10 LVOT Area: 3.46 Diastolic Function MV Pk E: 0.45 MV Pk A: 0.63 E/A: 0.70 E'Medial: 5.98 E/E' Med: 7.60 E' Laterial: 9.90 E/E' Lat: 4.60 Tricuspid Valve TR Pk Brett: 1.94 TR Pk Grad: 15.00 RA Press: 3.00 RVSP: 18.00 Great Vessels Aorta Ao Root-2D: 3.50 2.0-3.7 cm Ao Asc: 3.90 2.1-3.4 cm Pulmonary Valve PV Pk Brett: 1.21 Peak PV Grad: 6.00 Updated in Other Vendor System with Status of Final Igor Colón MD electronically signed on 11/04/2023 3:31:04 PM with status of Final
== END ==
LOC: HO.CARD 13:14
PROVIDERS: PCP Student in an Organized Health Care Education/Training Program; Visit Provider Student in an Organized Health Care Education/Training Program
DX: R60.0 Localized edema (principal)
CPT/HCPCS: 93306; 93356

== ENCOUNTER → 2023-11-04 13:19 | Outpatient (BNV) | payer MEDICAID, SELFPAY | PROVIDERS: PCP Student in an Organized Health Care Education/Training Program; Visit Provider Internal Medicine Cardiovascular Disease | DX: R60.9 Edema, unspecified (principal) | CPT/HCPCS: 93306; 93356 ==

== ENCOUNTER 2023-12-16 13:50 | Emergency (ER) | payer MEDICAID, SELFPAY ==
[2023-12-16 13:54] VITALS: BP 130/90; PULSE 127; O2SAT 96
--- NOTE | 2023-12-16 14:05 | ED.OVERDOSE ---
HPI - Overdose General Chief Complaint: Overdose Stated Complaint: OD,8 MG NARCAN GIVEN PRIOR TO EMS Time Seen by Provider: 12/16/23 14:02 Source: EMS Mode of arrival: EMS History of Present Illness HPI Narrative: This is a 58 years old patient with history of polysubstance abuse presented to the emergency department after opioid overdose. He was found unresponsive in the street he was given Narcan by police he is now awake and alert denies SI and HI complaint: accidental overdose Onset (ago): hour(s) Time: 14:05 Context: Accidental Overdose: wanted to get high Treatments Prior to Arrival: narcan Related Data Home Medications ?Medication ?Instructions ?Recorded ?Confirmed buprenorphine 8 mg-naloxone 2 mg 2 strip sublingual DAILY 07/30/22 07/30/22 sublingual film (Suboxone) albuterol sulfate 90 mcg/actuation 2 puff inhalation Q6H PRN wheezing 09/20/23 aerosol inhaler (Ventolin HFA) ammonium lactate 12 % lotion topical 09/20/23 benztropine 0.5 mg tablet 0.5 mg PO BEDTIME 09/20/23 carbamide peroxide 6.5 % ear drops drp otic (ears) 09/20/23 (Murine Ear) furosemide 40 mg tablet 40 mg PO BID 09/20/23 haloperidol 5 mg tablet 5 mg PO BEDTIME 09/20/23 losartan 25 mg tablet 50 mg PO DAILY 09/20/23 melatonin 3 mg tablet 3 mg PO BEDTIME 09/20/23 nicotine (polacrilex) 2 mg buccal 2 mg PO 09/20/23 mini lozenge nicotine 21 mg/24 hr daily 1 patch topical ONCE 09/20/23 transdermal patch potassium chloride 10 mEq 10 meq PO QAM 09/20/23 tablet,extended release sertraline 100 mg tablet 100 mg PO QAM 09/20/23 sertraline 50 mg tablet 50 mg PO QAM 09/20/23 umeclidinium 62.5 mcg/actuation 1 inh inhalation QAM 09/20/23 blister powder for inhalation (Incruse Ellipta) Previous Rx's ?Medication ?Instructions ?Recorded naloxone 4 mg/actuation nasal 4 mg intranasal Q2M PRN opioid 03/10/23 spray (Narcan) overdose #2 ea Allergies Allergy/AdvReac Type Severity Reaction Status Date / Time No Known Allergies Allergy Verified 12/16/23 14:12 [No Known Allergies*] Review of Systems Constitutional: Constitutional: Reports no additional constitutional complaints ENT: Reports system reviewed and no additional complaints, except as documented Cardiovascular: Cardiovascular: Reports no additional cardiovascular complaints Endocrine: Endocrine: Reports no additional endocrine complaints [facility] Past Medical History [facility] Narrative: Polysubstance abuse, PTSD, schizoaffective disorder Medical History Chronic schizophrenia Depressive disorder B12 deficiency Heroin use Opioid use disorder, moderate, in early remission, on maintenance therapy, dependence Atypical bipolar disorder Chronic post-traumatic stress disorder (PTSD) Cocaine use disorder Social History Social History Household Members: Significant Other Household Members Other:: plans to move in with sister after discharge Housing: Unknown / Unable to assess Housing Other:: pt plans on living with his sister after D/C Do you presently have visiting nurse or other home services: No Alcohol intake: never Comment: Patient using a cane Patient Tobacco Use Status: Current everyday Tobacco user Tobacco use type: Cigarette Cigarette Packs Per Day: 0.5 Cigarettes Per Day: 10.0 Years Smoked: 20 e-Cigarette/Vaping Use: Never Used Second Hand Smoke Exposure: Yes Substance Use Type: Crack/Cocaine Advance Directives: No Advance Directives Information Provided: No service: No Sexual orientation: Straight/Heterosexual Physical Exam Vital Signs: Vital Signs: Last Vital Signs Temp 98 F 12/16/23 14:06 Pulse 125 H 12/16/23 14:06 Resp 18 12/16/23 14:06 BP 136/74 12/16/23 14:06 Pulse Ox 97 12/16/23 14:06 O2 Del Method Room Air 12/16/23 14:06 BMI result Body Mass Index 28.9 He is awake alert in not acute distress sitting in the stretcher drinking water Const: General: cooperative and comfortable Nutritional Appearance: well nourished Orientation/consciousness: patient oriented x3 HEENT: Head: Yes normal to inspection General nose exam: Normal external nose present Face and sinus: Yes normal facial exam Mouth: Normal oral and palatal mucosa present Throat: Yes posterior oropharynx normal Neck: Neck: Yes normal visual inspection and Yes full ROM Resp: Effort & Inspection: normal respiratory effort Auscultation: clear to auscultation bilaterally Cardio: Jugular venous distension: no JVD Rate: regular rate Rhythm: regular rhythm GI: Inspection: Yes normal to inspection Palpation (GI): Soft to palpation, not firm and nontender Auscultation: normal bowel sounds Skin: General skin exam: no rashes or lesions noted and elasticity normal Lesions: no lesions Rashes: no rashes Neuro: General: patient oriented x3 Extrem: General: Yes normal to inspection Right lower extremity: normal to inspection Course Reevaluation(s) Reevaluation #1: Patient does no want to wait for the refinery operator light ends recovery he wants to be discharged now, he has no SI no HI he is clinically stable will discharge Time: 15:03 Medical Decision Making Medical Decision Making MDM Narrative: Patient presented with the opioid overdose received Narcan in the field, will observe and consult refinery operator light ends recovery Differential Diagnosis Differential Diagnoses: The differential diagnosis associated with the presentation includes Overdose of opioids/overdose of benzos/alcohol intoxication Admission/Observation Consideration of admission/observation: Escalation of care including admission/observation considered Independent Historian Clinical information obtained from an independent historian. History obtained from or confirmed by: EMS Chronic Conditions Patient?s care impacted by: Other (Polysubstance abuse) Discharge Plan Discharge Clinical Impression: Opioid overdose Qualifiers: Encounter type: initial encounter Injury intent: accidental or unintentional Qualified Code(s): T40.2X1A - Poisoning by other opioids, accidental (unintentional), initial encounter Patient Disposition: Home, Self-Care Instructions: Narcotic Use Disorder (ED) Additional Instructions: You do not want to go to detox, you told us that you are not suicidal Prescriptions: No Action buprenorphine-naloxone [Suboxone] 8-2 mg film 2 strip sublingual DAILY naloxone [Narcan] 4 mg/actuation spray,non-aerosol 4 mg intranasal Q2M PRN (Reason: opioid overdose) Qty: 2 0RF Rx Instructions: spray 1 dose into ONE nostril; alternate nostrils w each dose until help arrives Incruse Ellipta 62.5 mcg/actuation blister with device 1 inh inhalation QAM sertraline 50 mg tablet 50 mg PO QAM albuterol sulfate [Ventolin HFA] 90 mcg/actuation HFA aerosol inhaler 2 puff inhalation Q6H PRN (Reason: wheezing) sertraline 100 mg tablet 100 mg PO QAM ammonium lactate 12 % lotion topical haloperidol 5 mg tablet 5 mg PO BEDTIME benztropine 0.5 mg tablet 0.5 mg PO BEDTIME furosemide 40 mg tablet 40 mg PO BID melatonin 3 mg tablet 3 mg PO BEDTIME potassium chloride 10 mEq tablet extended release 10 meq PO QAM nicotine (polacrilex) 2 mg mini lozenge 2 mg PO Murine Ear 6.5 % drops otic (ears) nicotine 21 mg/24 hr patch 24 hour 1 patch topical ONCE losartan 25 mg tablet 50 mg PO DAILY Print Language: [place]
[2023-12-16 14:06] VITALS: BP 136/74; PULSE 125; RESP 18; TEMP 36.6; O2SAT 97; BMI 28.9
--- NOTE | 2023-12-16 14:59 | MHC.EDTECH ---
pt belongings in [place]
[2023-12-16 15:17] VITALS: BP 136/74; PULSE 99; RESP 18; TEMP 36.6; O2SAT 97
--- NOTE | 2023-12-17 11:23 | MHC.RECOVRN ---
Attempted to call pt for post overdose follow up. Both numbers listed in pts chart are inactive.
== END 2023-12-16 15:18 | disposition home or self-care (01) ==
PROVIDERS: Emergency Provider Emergency Medicine
DX: T40.2X1A Poisoning by other opioids, accidental (unintentional), initial encounter (principal); Y92.9 Unspecified place or not applicable; Z71.51 Drug abuse counseling and surveillance of drug abuser
CPT/HCPCS: 99282

== ENCOUNTER 2024-09-24 17:12 | Emergency (ER) | payer SELFPAY ==
[2024-09-24 17:42] VITALS: BP 100/81; PULSE 89; RESP 18; TEMP 36.5; O2SAT 94; BMI 25.4
--- NOTE | 2024-09-24 17:48 | ED.ALCOHOL ---
HPI - Alcohol General Chief Complaint: ETOH/Substance Use Stated Complaint: ETOH Time Seen by Provider: 09/24/24 17:47 Source: patient and EMS Mode of arrival: EMS Limitations: no limitations History of Present Illness ED Provider: HPI narrative: Patient with history of polysubstance abuse opiates fentanyl and cocaine and alcohol??? With history of schizoaffective disorder was found on the street by PD walking around erratically no signs of head injury in the ER also patient was walking no distress Related Data Home Medications ?Medication ?Instructions ?Recorded ?Confirmed buprenorphine 8 mg-naloxone 2 mg 2 strip sublingual DAILY 07/30/22 07/30/22 sublingual film (Suboxone) albuterol sulfate 90 mcg/actuation 2 puff inhalation Q6H PRN wheezing 09/20/23 aerosol inhaler (Ventolin HFA) ammonium lactate 12 % lotion topical 09/20/23 benztropine 0.5 mg tablet 0.5 mg PO BEDTIME 09/20/23 carbamide peroxide 6.5 % ear drops drp otic (ears) 09/20/23 (Murine Ear) furosemide 40 mg tablet 40 mg PO BID 09/20/23 haloperidol 5 mg tablet 5 mg PO BEDTIME 09/20/23 losartan 25 mg tablet 50 mg PO DAILY 09/20/23 melatonin 3 mg tablet 3 mg PO BEDTIME 09/20/23 nicotine (polacrilex) 2 mg buccal 2 mg PO 09/20/23 mini lozenge nicotine 21 mg/24 hr daily 1 patch topical ONCE 09/20/23 transdermal patch potassium chloride 10 mEq 10 meq PO QAM 09/20/23 tablet,extended release sertraline 100 mg tablet 100 mg PO QAM 09/20/23 sertraline 50 mg tablet 50 mg PO QAM 09/20/23 umeclidinium 62.5 mcg/actuation 1 inh inhalation QAM 09/20/23 blister powder for inhalation (Incruse Ellipta) Previous Rx's ?Medication ?Instructions ?Recorded naloxone 4 mg/actuation nasal 4 mg intranasal Q2M PRN opioid 03/10/23 spray (Narcan) overdose #2 ea Allergies Allergy/AdvReac Type Severity Reaction Status Date / Time No Known Allergies Allergy Verified 09/24/24 17:44 [No Known Allergies*] Review of Systems Review of Systems: Yes all other systems are reviewed and are negative PMFSH Past Medical History Medical History Chronic schizophrenia Depressive disorder B12 deficiency Heroin use Opioid use disorder, moderate, in early remission, on maintenance therapy, dependence Atypical bipolar disorder Chronic post-traumatic stress disorder (PTSD) Cocaine use disorder Social History Social History Household Members: Significant Other Household Members Other:: plans to move in with sister after discharge Housing: Unknown / Unable to assess Housing Other:: pt plans on living with his sister after D/C Do you presently have visiting nurse or other home services: No Alcohol intake: never Comment: Patient using a cane Patient Tobacco Use Status: Current everyday Tobacco user Tobacco use type: Cigarette Cigarette Packs Per Day: 0.5 Cigarettes Per Day: 10.0 Years Smoked: 20 e-Cigarette/Vaping Use: Never Used Second Hand Smoke Exposure: Yes Substance Use Type: Crack/Cocaine Advance Directives: No Advance Directives Information Provided: No service: No Sexual orientation: Straight/Heterosexual Physical Exam ED Vital Signs: Vital Signs - 24 hr 09/24/24 17:42 Temperature 97.7 F Pulse Rate 89 Respiratory Rate 18 Blood Pressure 100/81 Pulse Oximetry 94 Oxygen Delivery Method Room Air BMI result Body Mass Index 25.4 Appearance: Alert. Oriented X2. Intoxicated but able to ambulate in changes No acute distress. Eyes: PERRLA, No Nystagmus ENT: Pharynx normal. Oral Mucosa moist Neck: Normal inspection. Neck supple. CVS: Normal heart rate and rhythm. Pulses normal. Respiratory: No respiratory distress. Equal air entry bilateral, no wheezing/rales/rhonchi Abdomen: Soft and nontender. Bowel sounds are present, no mass palpable, no CVA tenderness Skin: Skin warm and dry. Normal skin color. Normal skin turgor. Extremities: No lower extremity edema. No calf tenderness Neuro: Oriented X 2. No motor deficit. No sensory deficit.No cerebellar signs , cranial nerves II-XII intact Medical Decision Making Medical Decision Making MDM Narrative: Patient's polysubstance abuse no signs of head injury walking in steady gait will discharge patient Discharge Plan Discharge Clinical Impression: Alcoholic intoxication Patient Disposition: Home, Self-Care Instructions: Abuse of Alcohol (ED) Additional Instructions: STOP DRINKING ALCOHOL FOLLOW UP WITH DETOX Prescriptions: No Action buprenorphine-naloxone [Suboxone] 8-2 mg film 2 strip sublingual DAILY naloxone [Narcan] 4 mg/actuation spray,non-aerosol 4 mg intranasal Q2M PRN (Reason: opioid overdose) Qty: 2 0RF Rx Instructions: spray 1 dose into ONE nostril; alternate nostrils w each dose until help arrives Incruse Ellipta 62.5 mcg/actuation blister with device 1 inh inhalation QAM sertraline 50 mg tablet 50 mg PO QAM albuterol sulfate [Ventolin HFA] 90 mcg/actuation HFA aerosol inhaler 2 puff inhalation Q6H PRN (Reason: wheezing) sertraline 100 mg tablet 100 mg PO QAM ammonium lactate 12 % lotion topical haloperidol 5 mg tablet 5 mg PO BEDTIME benztropine 0.5 mg tablet 0.5 mg PO BEDTIME furosemide 40 mg tablet 40 mg PO BID melatonin 3 mg tablet 3 mg PO BEDTIME potassium chloride 10 mEq tablet extended release 10 meq PO QAM nicotine (polacrilex) 2 mg mini lozenge 2 mg PO Murine Ear 6.5 % drops otic (ears) nicotine 21 mg/24 hr patch 24 hour 1 patch topical ONCE losartan 25 mg tablet 50 mg PO DAILY Discharge Date/Time: 09/24/24 18:04 Print Language: Georgian
--- OUTSIDE RECORDS SUMMARY | 2024-09-24 17:57 | XMS_ITS | Encounter Summary ---
Author Organization [employer] Address [address] [facility] [address] [place] [address] Care Team Providers Care Regional Sales Consultant Name Role Phone Alix Vivar MD Primary Care Pro vider Reason for Visit * Reason Comments Med Refill Encounter Details Date Type Department Care Team ([facility] st Contact Info) Description 11/18/2023 Refill [facility] [address] [place], [place] [phone] Alix Vivar MD [address] [place], [place] [phone] Social History Tobacco Use Types Packs/Day Years Used Date Smoking Tobacco: Every Day Cigarettes Smokeless Tobacco: Never Comments:Started smoking 25 y of age , 1PQT a day but now 10 cig a day , smoking for 33 years .PQT a year jeimy 24 Alcohol Use Standard Drinks/Week Comments Not Currently 0 (1 standard drink = 0.6 oz pur e alcohol) Depression Answer Date Recorded Patient Health Questionnaire-9 Score 12 07/25/2023 Patient Health Questionnaire-9 Score 12 07/25/2023 Last PHQ-9: Questionnaire Data Not on file 1 09/25/2022 Housing Stability Answer Date Recorded What is your housing situation today? I do not have housing (Staying with others, in a hotel, in a mcfp, living outside on the street, on a beach, in a car, or in a park 09/04/[address] you li ve. Do you have problems with any of the following? None of the above 09/04/2023 Food Insecurity Answer Date Recorded Within the past 12 months, y ou worried that your food would run out before you got money to buy more: Often true 09/04/2023 Within the past 12 months,th e food you bought just didn't last and you didn't have enough money to get more: Often true Transportation Answer Date Recorded In the past 12 months, has l ack of transportation kept you from medical appts, meetings, work or from getting things needed for daily living? Yes, it has kept me from non-medical meetings, work, or getting things that I need 09/04/2023 Utilities Answer Date Recorded In the past 12 months, has t he electric, gas, oil or water company threatened to shut off services in your home? No 09/04/2023 Depression Answer Date Recorded Patient Health Questionnaire-2 Score 4 07/25/2023 Sex and Gender Information Value Date Recorded Sex Assigned at Male 06/04/2022 10:36 AM EDT Legal Sex Male 10:36 AM EDT Gender Identity Male 06/04/2022 10:36 AM EDT Sexual Orientation Straight 06/04/2022 10 :36 AM EDT documented as of this encounter Plan of Treatment Not on file documented as of this encounter Visit Diagnoses Not on filedocumented in this encounter Additional Health Concerns Assessment Noted Time PHQ-9 Depression Total Score: 12 023 9:49 AM EST documented as of this encounter Care Teams Regional Sales Consultant Relationship Specialty Start Date End Date Alix Vivar MD [address] [place] [id number] PCP - General Internal Medicine 04/17/23 documented as of this encounter
--- OUTSIDE RECORDS SUMMARY | 2024-09-24 17:57 | XMS_ITS | Encounter Summary ---
Author Organization [employer] Address [address] [facility] [address] [place] [address] Care Team Providers Care Chef German Name Role Phone Alix Vivar MD Primary Care Pro vider Reason for Visit * Reason Comments Med Refill Encounter Details Date Type Department Care Team ([facility] st Contact Info) Description 11/18/2023 Refill [facility] [address] [place], [place] [phone] Marie Celaya MD [address] [place], [place] [phone] Social History Tobacco Use Types Packs/Day Years [...] documented as of this encounter Care Teams Chef German Relationship Specialty Start Date End Date Alix Vivar MD [address] [place] [id number] PCP - General Internal Medicine 04/17/23 documented as of this encounter
--- OUTSIDE RECORDS SUMMARY | 2024-09-24 17:57 | XMS_ITS | Encounter Summary ---
Author Organization [employer] Address [address] [facility] [address] [place] [address] Care Team Providers Care Finisher Special Stocks Name Role Phone Alix Vivar MD Primary Care Pro vider Reason for Visit * Reason Comments Med Change Request Encounter Details Date Type Department Care Team ([facility] st Contact Info) Description 07/25/2023 Refill [facility] [address] [place] [phone] Alix Vivar MD [address] [place] [address] Social History Tobacco Use Types Packs/Day Years [...] Questionnaire Data Not on file 1 09/25/2022 Depression Answer Date Recorded Patient Health Questionnaire-2 Score 4 07/25/2023 Sex and Gender Information Value Date Recorded Sex Assigned at Male 06/04/2022 10:36 AM EDT Legal Sex Male 10:36 AM EDT Gender Identity Male 06/04/2022 10:36 AM EDT Sexual Orientation Straight 06/04/2022 10 :36 AM EDT documented as of this encounter Miscellaneous Notes * Telephone Encounter - Alix Santos MD - 07/25/2023 4:45 PM EST Sent new mew documented in this encounter Plan of Treatment Not on file documented as of this encounter Visit Diagnoses Not on filedocumented in this encounter Additional Health Concerns Assessment Noted Time PHQ-9 Depression Total Score: 12 023 9:49 AM EST documented as of this encounter Care Teams Finisher Special Stocks Relationship Specialty Start Date End Date Alix Vivar MD [address] [place] [id number] PCP - General Internal Medicine 04/17/23 documented as of this encounter
--- NOTE | 2024-09-24 18:00 | PC.NURSE ---
pt ambulates independently with steady gait in emergency department. He is eating food and is answering questions appropriately. Denies SI/HI.
== END 2024-09-24 18:04 | disposition home or self-care (01) ==
LOC: HO.ED 17:55
PROVIDERS: Emergency Provider Internal Medicine
DX: F25.9 Schizoaffective disorder, unspecified (principal); F17.210 Nicotine dependence, cigarettes, uncomplicated; F10.129 Alcohol abuse with intoxication, unspecified; Y90.9 Presence of alcohol in blood, level not specified
CPT/HCPCS: 99281; 99282

== ENCOUNTER 2025-01-13 18:04 | Emergency (ER) | payer MEDICAID, SELFPAY ==
[2025-01-13 18:26] VITALS: BP 164/96; PULSE 100; O2SAT 98
[2025-01-13 18:27] VITALS: BP 172/104; PULSE 110; RESP 19; TEMP 36.6; O2SAT 98; BMI 26.1
--- NOTE | 2025-01-13 18:45 | ED_ITS ---
HPI - Overdose General Chief Complaint: Overdose Stated Complaint: overdose on opioids, narcanned , awake Time Seen by Provider: 01/13/25 18:15 Source: patient and EMS Mode of arrival: EMS Limitations: no limitations History of Present Illness ED Provider: gregory andersen np HPI Narrative: Patient is a 59-year-old male who presents emergency department via EMS. He was found unresponsive by bystanders who administered 12 mg of intranasal Narcan he then was awake and oriented. When asked, he states that this was an accidental overdose, reports that he used a bag apparently today, he snorts intranasally denies IV usage. Does not believe if there was any fentanyl in this. He denies additional recreational drug usage. He offers no complaints at this time but states that he does feel a bit tired. At this time he is not interested in assistance with detox services. Related Data Home Medications ?Medication ?Instructions ?Recorded ?Confirmed buprenorphine 8 mg-naloxone 2 mg 2 strip sublingual DAILY 07/30/22 07/30/22 sublingual film (Suboxone) albuterol sulfate 90 mcg/actuation 2 puff inhalation Q6H PRN wheezing 09/20/23 aerosol inhaler (Ventolin HFA) ammonium lactate 12 % lotion topical 09/20/23 benztropine 0.5 mg tablet 0.5 mg PO BEDTIME 09/20/23 carbamide peroxide 6.5 % ear drops drp otic (ears) 09/20/23 (Murine Ear) furosemide 40 mg tablet 40 mg PO BID 09/20/23 haloperidol 5 mg tablet 5 mg PO BEDTIME 09/20/23 losartan 25 mg tablet 50 mg PO DAILY 09/20/23 melatonin 3 mg tablet 3 mg PO BEDTIME 09/20/23 nicotine (polacrilex) 2 mg buccal 2 mg PO 09/20/23 mini lozenge nicotine 21 mg/24 hr daily 1 patch topical ONCE 09/20/23 transdermal patch potassium chloride 10 mEq 10 meq PO QAM 09/20/23 tablet,extended release sertraline 100 mg tablet 100 mg PO QAM 09/20/23 sertraline 50 mg tablet 50 mg PO QAM 09/20/23 umeclidinium 62.5 mcg/actuation 1 inh inhalation QAM 09/20/23 blister powder for inhalation (Incruse Ellipta) Previous Rx's ?Medication ?Instructions ?Recorded naloxone 4 mg/actuation nasal 4 mg intranasal Q2M PRN opioid 03/10/23 spray (Narcan) overdose #2 ea Allergies Allergy/AdvReac Type Severity Reaction Status Date / Time No Known Allergies Allergy Verified 01/13/25 18:31 [No Known Allergies*] Review of Systems 2 Review of Systems: Yes all other systems are reviewed and are negative [facility] Past Medical History Attestation statement: The following information was validated with the patient. Medical History Chronic schizophrenia Depressive disorder B12 deficiency Heroin use Opioid use disorder, moderate, in early remission, on maintenance therapy, dependence Atypical bipolar disorder Chronic post-traumatic stress disorder (PTSD) Cocaine use disorder Social History Social History Household Members: Significant Other Household Members Other:: plans to move in with sister after discharge Housing: Unknown / Unable to assess Housing Other:: pt plans on living with his sister after D/C Do you presently have visiting nurse or other home services: No Alcohol intake: never Comment: Patient using a cane Patient Tobacco Use Status: Current everyday Tobacco user Tobacco use type: Cigarette Cigarette Packs Per Day: 0.5 Cigarettes Per Day: 10.0 Years Smoked: 20 e-Cigarette/Vaping Use: Never Used Second Hand Smoke Exposure: Yes Substance Use Type: Crack/Cocaine Advance Directives: No Advance Directives Information Provided: No Do you have a plan to hurt others: No Plan service: No Sexual orientation: Straight/Heterosexual Physical Exam 2 Vital Signs: Vital Signs: Last Vital Signs Temp 98.1 F 01/14/25 09:20 Pulse 88 01/14/25 09:20 Resp 18 01/14/25 09:20 BP 152/92 H 01/14/25 09:20 Pulse Ox 99 01/14/25 09:20 O2 Del Method Room Air 01/14/25 09:20 BMI result Body Mass Index 26.1 Appearance: Alert.?Oriented to person, place and time. No acute distress.?Normal affect. Ill kempt Eyes: Pupils equal, round and reactive to light.? ENT: Pharynx normal.?? Neck: Normal inspection.? Neck supple.?? CVS: Heart sounds normal. Normal heart rate and rhythm.? Pulses normal.?? Respiratory: No respiratory distress.? Lung sounds clear to auscultation bilaterally?? Abdomen: Soft and non-tender. Normoactive bowel sounds. Skin: Skin warm and dry.? Normal skin color.? ? Extremities: No lower extremity edema.? No calf ttp? Neuro: Moves all extremities spontaneously. Sensation intact bilaterally. CN II- XII intact. No focal neuro deficits. Ambulates with normal steady gait. Course Course Course Narrative: Time: 07:55 Date: 01/14/25 Provider: Sandee Preciado, Patient in physician observation for psychiatric evaluation.? No acute events reported overnight. No current complaints. VS stable.? Pending addiction team evaluation. Will continue to monitor. Reevaluation(s) Reevaluation #1: Time: 08:32 Date: 01/14/25 Provider: Sandee Preciado DO Physician observation ended at 832am.. Patient has been cleared for discharge by the CARE team. DC to [facility] detox. Narcan to to go Medications Administered Discontinued Medications Generic Name Dose Route Start Last Admin Trade Name Freq PRN Reason Stop Dose Admin Naloxone HCl 8 mg 01/14/25 08:33 01/14/25 09:15 Naloxone Hcl Nasal Take Home 4 Mg [place] NOSTRILALT 01/14/25 08:34 8 mg ONCE ONE Administration Medical Decision Making Medical Decision Making [facility] Narrative: Patient is a 59-year-old male past medical history of schizoaffective disorder, prolonged QTC, depression, opioid use disorder, cocaine use disorder, vitamin B12 deficiency who presents emergency department for evaluation after accidental overdose as per HPI. He required 12 mg of intranasal Narcan administered by bystanders. Arrived to emergency department awake and alert. He offers no physical complaints at the time of my evaluation though he does admit that he feels slightly tired. He is in no respiratory distress, LS CTA, no bradypnea or hypoxia. He is calm and cooperative. Of the time my initial evaluation declines interest in assistance with detox. He will be monitored in the emergency department over the next few hours after receiving Narcan and will reassess prior to discharge if he has any interest in assistance with detox services. Differential Diagnosis Differential Diagnoses: The differential diagnosis associated with the presentation includes (Unintentional overdose, intentional overdose, opioid use disorder) Admission/Observation Consideration of admission/observation: Escalation of care including admission/observation considered 01/13/2025 18:45 patient placed in physician observation for further monitoring after reported unintentional overdose. He will require frequent observation to assess that he does not relapse into an overdose state. Lab Data MDM Lab Attestation statement: I reviewed the patient's lab results. CBC is without leukocytosis, has a mild normocytic anemia not meeting transfusion criteria, no thrombocytopenia. No significant electrolyte derangement. No PRABHJOT. LFTs unremarkable. Toxicology positive for opiates fentanyl and cocaine. 01/13/25 22:54 01/13/25 22:54 Labs: Lab Results 01/13/25 01/13/25 Range/Units 21:29 22:54 WBC 6.5 (4.8-10.8) X10*3/uL RBC 4.45 L D (4.60-5.80) X10*6/uL Hgb 13.0 L D (14.0-18.0) g/dl Hct 38.8 L D (42.0-52.0) % MCV 87.2 (80.0-98.0) fL MCH 29.2 (27.0-33.0) pg MCHC 33.5 (31.0-36.0) g/dl RDW 12.9 (11.0-16.0) % Plt Count 181 (160-400) X10*3/uL MPV 10.3 (9.4-12.4) fL Immature Gran % (Auto) 0.3 (0.0-0.4) % Neut % (Auto) 65.6 (45-73) % Lymph % (Auto) 21.7 (20-40) % [place] % (Auto) 9.1 (2-11) % Eos % (Auto) 2.8 (0-4) % Baso % (Auto) 0.5 (0-2) % Lymph # (Auto) 1.4 (1.2-4.9) X10*3/uL [place] # (Auto) 0.6 (0.1-1.2) X10*3/uL Eos # (Auto) 0.2 (0.0-0.4) X10*3/uL Baso # (Auto) 0.0 (0.0-0.2) X10*3/uL Abs Immat Gran (auto) 0.02 (0.00-0.03) X10*3/uL Absolute Neuts (auto) 4.3 (2.0-8.3) x10*3/uL Absolute Nucleated RBC 0.000 (0.0-0.012) X10*3/uL Nucleated RBC % (auto) 0.0 (0.0-0.2) /100WBC Sodium 142 (135-145) mmol/L Potassium 4.0 (3.3-5.1) mmol/L Chloride 109 H (96-108) mmol/L Carbon Dioxide 29 (22-29) mmol/L Anion Gap 8 L (12-20) BUN 20 H (9-16) mg/dL Creatinine 0.97 (0.5-1.4) mg/dL Estim Creat Clear Calc 81.2 Estimated GFR > 60 Random Glucose 97 (60-115) mg/dL Calcium 9.1 D (8.4-10.2) mg/dL Total Bilirubin 0.4 (0.0-1.0) mg/dL AST 24 (5-37) U/L ALT 14 (0-40) U/L Alkaline Phosphatase 64 (39-117) U/L Total Protein 6.6 (6.5-8.0) g/dL Albumin 3.7 (3.5-5.0) g/dL Urine Opiates Screen POSITIVE H (Not Detect) Ur Buprenorphine Scrn Not Detected (Not Detect) ng/mL Ur Oxycodone Screen Not Detected (Not Detect) ng/mL Urine Methadone Screen Not Detected (Not Detect) ng/mL Urine Fentanyl Screen POSITIVE H (Not Detect) Ur Barbiturates Screen Not Detected (Not Detect) Ur Phencyclidine Scrn Not Detected (Not Detect) Ur Amphetamines Screen Not Detected (Not Detect) U Benzodiazepines Scrn Not Detected (Not Detect) Urine Cocaine Screen POSITIVE H (Not Detect) U Marijuana (THC) Screen Not Detected (Not Detect) Ethyl Alcohol 13 mg/dL Independent Historian Clinical information obtained from an independent historian. History obtained from or confirmed by: EMS External Record Review External record reviewed: Outpatient record Chronic Conditions Patient?s care impacted by: Other (See narrative above) Discharge Plan Discharge Clinical Impression: Opioid overdose Patient Disposition: Home, Self-Care Instructions: Adult Overdose (ED) Additional Instructions: Overdose You were seen in our Emergency Department for an overdose today. You received narcan in order to reverse the effects of overdose. Narcan only lasts about 45 min to 1 hour in the system. You may have been given narcan to take home with you today, please keep it near you if you are going to use again, so others can use it if needed.? The number one risk for fatal overdose is using alone? [facility] is a 25/02 hotline where you can be on the phone with someone while you use, and they can call for help if they suspect an overdose: [phone] Things to look out for when you leave include severe vomiting or diarrhea, headaches, muscle cramps, fever, coughing, chest pain, or if you feel so short of breath you cannot walk to the bathroom. Please seek care and return any time for worsening symptoms.? You may have been provided with safer injection?items, please take time to take care of YOU and your health. Use new supplies whenever possible to lessen the chances of infections and other illnesses.? If you need more supplies, please go [facility],? [address] [place] [address] OR you can call or text to coordinate delivery of safer supplies. If you decide you want to stop or cut down on how much you?re using, please call the numbers on the list provided to you or you can come to our outpatient Addiction Treatment office [facility] (M-F 9am-5p) [address] [place] [address], [facility] [address] [place], [place]. [phone] Prescriptions: No Action buprenorphine-naloxone [Suboxone] 8-2 mg film 2 strip sublingual DAILY naloxone [Narcan] 4 mg/actuation spray,non-aerosol 4 mg intranasal Q2M PRN (Reason: opioid overdose) Qty: 2 0RF Rx Instructions: spray 1 dose into ONE nostril; alternate nostrils w each dose until help arrives Incruse Ellipta 62.5 mcg/actuation blister with device 1 inh inhalation QAM sertraline 50 mg tablet 50 mg PO QAM albuterol sulfate [Ventolin HFA] 90 mcg/actuation HFA aerosol inhaler 2 puff inhalation Q6H PRN (Reason: wheezing) sertraline 100 mg tablet 100 mg PO QAM ammonium lactate 12 % lotion topical haloperidol 5 mg tablet 5 mg PO BEDTIME benztropine 0.5 mg tablet 0.5 mg PO BEDTIME furosemide 40 mg tablet 40 mg PO BID melatonin 3 mg tablet 3 mg PO BEDTIME potassium chloride 10 mEq tablet extended release 10 meq PO QAM nicotine (polacrilex) 2 mg mini lozenge 2 mg PO Murine Ear 6.5 % drops otic (ears) nicotine 21 mg/24 hr patch 24 hour 1 patch topical ONCE losartan 25 mg tablet 50 mg PO DAILY Interventions: ED Discharge Assessment Last Done: 01/14/25 09:20 Discharge Date/Time: 01/14/25 09:22 Print Language: Syriac
--- OUTSIDE RECORDS SUMMARY | 2025-01-13 18:50 | XMS_ITS | Clinical Summary ---
Author Organization [employer] Address [address] [place] [address] Care Team Providers Care Table Games Manager Name Role Phone Alix Vivar MD Primary Care Pro vider Allergies No known active allergies Medications * This document contains information received from the source organization and may not represent a complete record from that organization. benztropine (Cogentin) 0.5 MG tablet Take 0.5 mg by mouth at bedtime. 3 Active Suboxone 8-[address] 2 FILM UNDER TONGUE ONCE A DAY 3 Active haloperidol (Haldol) 5 MG tablet Take 5 mg by mouth at bedtime. 3 Active sertraline (Zoloft) 100 MG tablet Take 100 mg by mouth in the morning. 3 Active sertraline (Zoloft) 50 MG tablet TAKE 1 TABLET BY MOUTH DAILY TAKE WITH SERTRALINE 100MG TO MAKE 150MG A DAY 3 Active melatonin 3 MG tablet Take 1 tablet (3 mg) by mouth at bedtime. 30 tablet 2 3 Active losartan (Cozaar) 50 MG tablet Take 1 tablet (50 mg) by mouth in the morning. 90 tablet 4 Active Ventolin HFA 108 (90 Base) MCG/ACT inhaler INHALE 2 PUFFS EVERY 6 HOURS IF NEEDED FOR WHEEZING OR SHORTNESS OF BREATH. 18 g 2 4 Active potassium chloride CR (Klor-Con) 10 MEQ ER tablet TAKE 1 TABLET (10 MEQ) BY MOUTH IN THE MORNING 30 tablet 1 4 Active Incruse Ellipta 62.5 MCG/ACT aerosol powder INHALE 1 PUFF BY MOUTH EVERY DAY IN THE MORNING 30 each 2 4 Active docusate sodium (Colace) 100 MG capsuleIndicati ons:Uncomplicat ed opioid dependence (CMS/HCC) TAKE 1 CAPSULE (100 MG) BY MOUTH IN THE MORNING AND AT BEDTIME NEEDED FOR CONSTIPATION 180 capsule 4 Active nicotine (Nicoderm, Step 1) 21 MG/24HR patch PLACE 1 PATCH ON THE SKIN 1 TIME EACH DAY AT THE SAME TIME. 42 patch 4 Active ammonium lactate (Lac-Hydrin) 12 % lotion APPLY TOPICALLY IF NEEDED FOR DRY SKIN 400 mL 4 Active Fluticasone-Luis meterol (Wixela Inhub) 250-50 MCG/ACT aerosol powder Inhale. Active furosemide (Lasix) 40 MG tablet Take 1 tablet (40 mg) by mouth Once per day. 90 tablet 4 Active Active Problems Problem Noted Date Diagnosed Date Ascending aorta dilation 11/29/2023 Upper respiratory symptom 11/29/2023 Lower extremity edema 07/24/2023 Umbilical hernia 07/24/2023 Polysubstance abuse 07/24/2023 Obesity (BMI 30-39.9) 07/24/2023 Health care maintenance 07/24/2023 Opioid dependence 08/27/2022 Nicotine dependence 08/27/2022 HTN (hypertension) 08/27/2022 Posttraumatic stress disorder 06/22/2020 Bipolar disorder 06/22/2020 07/22/2023 Assessment & Plan (07/25/2023 11:34 AM EST): During IBH Consult [facility] presenting with depressed mood, loss of interests/pleasure , changes in sleep restless, unsatisfying sleep, trouble concentrating, thoughts of worthlessness or guilt, fatigue/loss of energy, hopelessness, worthlessness , difficulty concentrating, Fear of abandonment, Pattern of unstable and intense interpersonal relationships, Impulsivity, Affective instability, Feelings of emptiness, Intense anger, and Disassociation, and Flashbacks, Intrusive trauma memories and thoughts, Hypervigilance, Avoidance of trauma reminders/triggers, Isolation from normal social supports, Fear of social judgement, Feelings of being out of control, and Feelings of impending doom; for a period of 6-12 mo, for all symptoms in the context of housing and long history of addiction. Lack of network and support exacerbate symptoms as well as housing instability. PLAN: (check all that apply) New/Additional Services needed PCP management Off-site services for BH, Continue with current services (defined as services in the past 12 months) . [facility] is connected with [facility] for psychiatric services and attends weekly sessions with [facility]. Resolved Problems Problem Noted Date Diagnosed Date Resolved Date Wax in ear 07/24/2023 09/05/2023 Encounters Date Type Department Care Team Description 11/04/2024 Population Health Risk Score [facility] (C[facility]) Department [address] [phone] Provider, Population Health Generic from Last 3 Months Immunizations Immunization Administration Dates Next Due Influenza Injectable Quadriv alant Preservative Free IIV4 MDCK 04/01/2019 Influenza Quadrivalent Adjuvanted 05/09/2023 Influenza injectable quadriv alent preservative free 08/25/2021,04/13/2020,11/03/2019,10/10,07/27/2016 Influenza, IIV3, injectable 05/21/2012, 0,07/12/2009 Influenza, Unspecified 06/05/2013,05/14/2008 Pneumococcal Polysaccharide PPSV23 04/06/2020 Tdap 06/23/2012 Family History Medical History Relation Name Comments DM2 Mother Relation Name Status Comments Mother Social History Tobacco Use Types Packs/Day Years Used Date Smoking Tobacco: Every Day Cigarettes Smokeless Tobacco: Never Tobacco Cessation:Ready to Q uit: Not Asked; Counseling Given: Not Answered Comments:Started smoking 25 y of age , [...] with others, in a hotel, in a correction, living outside on the street, on a [...] Orientation Straight 06/04/2022 10 :36 AM EDT Last Filed Vital Signs Vital Sign Reading Time Taken Comments Blood Pressure 130/74 11/29/2023 8:59 AM EDT Pulse 70 11/29/2023 8:59 AM EDT Temperature 36.2 ??C (97.2 ??F) 11/29/2023 8:59 AM ED T Respiratory Rate 20 11/29/2023 8:59 AM EDT Oxygen Saturation 96% 11/29/2023 8:59 AM EDT Inhaled Oxygen Concentration - - Weight 87.3 kg (192 lb 6.4 oz) 11/29/2023 8:59 A M EDT Height 170.2 cm (5' 7 ) 11/29/2023 8:59 AM EDT Body Mass Index 30.13 11/29/2023 8:59 AM EDT Plan of Treatment Health Maintenance Due Date Last Done Comments CT Colonography 1967 Colonoscopy 1967 Colorectal Cancer Screening 1967 FIT DNA/Cologuard 1967 FIT 1967 FOBT 1967 Sigmoidoscopy 1967 Disability Screening 1967 Alcohol/Substance Use Screening 1979 Hepatitis B Vaccines (1 of 3 - 19+ 3-dose series) 1986 Zoster Vaccines (1 of 2) 2017 Pneumococcal Vaccine: 50+ Years (2 of 2 - PCV) 04/06/2021 04/06/2020 DTaP/Tdap/Td Vaccines (2 - Td or Tdap) 06/23/2022 06/23/2012 Depression Monitoring 01/24/2024 07/25/2023, 023 COVID-19 Vaccine ( season) 2024 10/19/2022, 08/25/2021, 12/09/2020, Additional history exists SDOH Screening 09/04/2024 09/04/2023 Tobacco Screening 11/28/2024 11/29/2023 Influenza Vaccine (Season Ended) 2025 05/09/2023, 08/25/2021, 04/13/2020, Additional history exists Lipid Panel 09/24/2028 09/24/2023 RSV Patients and Patients Aged 60 years or older (1 - 1-dose 75+ series) 2042 HIV Screening Completed 09/24/2023 Hepatitis C Screening Completed 09/24/2023 HIB Vaccines Aged Out No longer eligi ble based on patient's age to complete this topic HPV Vaccines Aged Out No longer eligi ble based on patient's age to complete this topic Hepatitis A Vaccines Aged Out No long er eligible based on patient's age to complete this topic IPV Vaccines Aged Out No longer eligi ble based on patient's age to complete this topic Meningococcal B Vaccine Aged Out No l onger eligible based on patient's age to complete this topic Meningococcal Vaccine Aged Out No lisseth kylee eligible based on patient's age to complete this topic RSV under 20 months Aged Out No longe r eligible based on patient's age to complete this topic Rotavirus Vaccines Aged Out No longer eligible based on patient's age to complete this topic Procedures Procedure Name Priority Date/Time Associated Diagnosis Comments HEPATITIS C AB W/REFL TO HCV RNA, QN, PCR Routine 09/24/2023 10:36 AM EST Annual physical exam HIV 1/2 ANTIGEN/ANTIBODY, FOURTH GENERATION W/RFL Routine 09/24/2023 10:36 AM EST Annual physical exam LIPID PANEL, STANDARD Routine 09/24/2023 10:36 AM EST Annual physical exam from Last 3 Months or Most Recently Relevant to Health Maintenance Results * Hepatitis C Antibody with Reflex to HCV, RNA, Quantitative, Real-Time PCR (09/24/2023 10:36 AM EST) Hepatitis C Antibody Nonreactive Nonreactive [facility] Comment:Antibodies to HCV no t detected; does not exclude early acuteHCV infection. Blood Venous blood specimen / Unknown 09/24/2023 10:36 AM EST 09/24/2023 11:22 AM EST Alix Santos MD LAB BLOOD ORDERAB LES Final Result [facility] [address] [place] [phone] * HIV-1/2 Antigen and Antibodies, Fourth Generation, with Reflexes (09/24/2023 10:36 AM EST) HIV AB/AG Nonreactive Nonreactive [facility] Comment:HIV-1 p24 Ag and/or HIV-1/HIV-2 Ab not detected.A test result that is nonreactive does not exclude thepossibility of exposure to or infection with HIV-1 and/orHIV-2. Nonreactive results in this assay for individualswith prior exposure to HIV-1 and/or HIV-2 may be due toantigen and antibody levels that are below the limit ofdetection of this assay.The [employer] HIV Ag/Ab Combo assay result andsupplemental assay results should be interpreted inconjunction with the patient's clinical presentation,history and other laboratory results. If the results areinconsistent with clinical evidence, additional testing issuggested to confirm the result. Blood Venous blood specimen / Unknown 09/24/2023 10:36 AM EST 09/24/2023 11:22 AM EST us Alix Santos MD LAB BLOOD ORDERAB LES Final Result Performing Organization Address [facility] Co de Phone Number [facility] [address] [place] [address] [phone] * (ABNORMAL) Lipid Panel, Standard (09/24/2023 10:36 AM EST) Triglycerides 194(H) <150 mg/dL [facility] Comment:Desirable Triglyceri de: less than 150 mg/dLBorderline High Triglyceride 150-199 mg/dLHigh Triglyceride: 200-499 mg/dLVery High Triglyceride: greater than or equal to 5OO mg/dL Cholesterol 195 <200 mg/dL [facility] Comment:Desirable Cholestero l: less than 200 mg/dLBorderline High Cholesterol: 200-239 mg/dLHigh Cholesterol: greater than 239 mg/dL LDL Cholesterol Calculated 126(H) <100 mg/dL [facility] Comment:Desirable LDL: less than 100 mg/dLNear Optimal/Above Optimal LDL: 110- 129 mg/dLBorderline High LDL: 130-159 mg/dLHigh LDL: 160-189 mg/dLVery High LDL: greater than or equal to 190 mg/dL HDL Cholesterol 31(L) >40 mg/dL [facility] Comment:Desirable HDL: great er than 40 mg/dL Note: This HDL assay may give artificially low results in patients with liver disease. Blood Venous blood specimen / Unknown 09/24/2023 10:36 AM EST 09/24/2023 11:22 AM EST us Alix Santos MD LAB BLOOD ORDERAB LES Final Result Performing Organization Address [facility]/ZIP Co de Phone Number [facility] [address] [place] [phone] from Last 3 Months or Most Recently Relevant to Health Maintenance Insurance [place], [place] [facility] C3 Care Teams Table Games Manager Relationship Specialty Start Date End Date Alix Vivar MD [address] [place] [phone] PCP - General Internal Medicine 04/17/23
[2025-01-13 20:00] VITALS: BP 148/83; PULSE 96; RESP 16; TEMP 36.3; O2SAT 93
[2025-01-13 21:48] LABS: Amphetamine Screen Urine Not Detected (Not Detect); Barbiturates, Urine Not Detected (Not Detect); Benzodiazepines Screen Urine Not Detected (Not Detect); Buprenorphine Scr Not Detected (Not Detect); Cannabinoid Screen Urine Not Detected (Not Detect); Cocaine Screen Urine POSITIVE (Not Detect); Fentanyl, urine POSITIVE (Not Detect); Methadone Screen, Urine Not Detected (Not Detect); Opiate Screen Urine POSITIVE (Not Detect); Oxycodone Screen Urine Not Detected (Not Detect); Phencyclidine Screen Urine Not Detected (Not Detect)
[2025-01-13 22:00] VITALS: BP 142/70; PULSE 78; RESP 16; TEMP 36.2; O2SAT 98
[2025-01-13 22:58] LABS: MANUAL DIFF FLAG NO
[2025-01-13 23:02] LABS: Basophils Percent Auto 0.5 % (0-2); Eosinophils Absolute Auto 0.2 X10*3/uL (0.0-0.4); Eosinophils Percent Auto 2.8 % (0-4); Hematocrit 38.8 % (42.0-52.0); Imm Gran Abs Auto 0.02 X10*3/uL (0.00-0.03); Imm Gran Pct Auto 0.3 % (0.0-0.4); Lymphocytes Absolute Auto 1.4 X10*3/uL (1.2-4.9); Lymphocytes Percent Auto 21.7 % (20-40); Mean Corpuscular HGB Conc 33.5 g/dl (31.0-36.0); Mean Corpuscular Hemoglobin 29.2 pg (27.0-33.0); Mean Corpuscular Volume 87.2 fL (80.0-98.0); Mean Platelet Volume 10.3 fL (9.4-12.4); Monocytes Absolute Auto 0.6 X10*3/uL (0.1-1.2); Monocytes Percent Auto 9.1 % (2-11); Neutrophils Absolute Auto 4.3 x10*3/uL (2.0-8.3); Neutrophils Percent Auto 65.6 % (45-73); Platelet Count 181 X10*3/uL (160-400); Red Blood Count 4.45 X10*6/uL (4.60-5.80); Red Cell Distribution Width 12.9 % (11.0-16.0); White Blood Count 6.5 X10*3/uL (4.8-10.8)
[2025-01-13 23:15] LABS: Alanine Aminotransferase 14 U/L (0-40); Albumin Level 3.7 g/dL (3.5-5.0); Alkaline Phosphatase 64 U/L (39-117); Anion Gap 8 (12-20); Aspartate Amino Transferase 24 U/L (5-37); Bilirubin Total 0.4 mg/dL (0.0-1.0); Blood Urea Nitrogen 20 mg/dL (9-16); Calcium 9.1 mg/dL (8.4-10.2); Carbon Dioxide 29 mmol/L (22-29); Chloride 109 mmol/L (96-108); Creatinine Clr Calc Pharmacy 81.2; Estimated Glomerular Filt Rate > 60; Ethanol 13 mg/dL; Glucose Random 97 mg/dL (60-115); Sodium 142 mmol/L (135-145); Total Protein 6.6 g/dL (6.5-8.0)
--- NOTE | 2025-01-14 00:38 | MHC.CARE ---
This clinician attempted to evaluate patient who was referred for a Recovery consult. Patient came in reporting an accidental overdose and initially declined detox services. He since has requested detox. Patient asleep on the stretcher in ED8H, not easily aroused. It took sometime before he partially removed the blanket from his head after grunting several times to t/w at the call of his name. He is not agreeable to an assessment at this time, is mumbling, appears groggy and states come back. Patient not evaluated at this time and will remain pending until he is agreeable to be seen.
[2025-01-14 02:32] VITALS: RESP 16
[2025-01-14 05:12] VITALS: BP 131/81; PULSE 73; RESP 16; TEMP 36.9; O2SAT 97
--- NOTE | 2025-01-14 05:46 | PC.NURSE ---
patient changed into hospital attire. security placed belongings in [facility]. patient had 5$ in [place]. pending re eval for detox this morning.
[2025-01-14] MEDS: Naloxone HCl Nasal TAKE HOME 4 MG SPRAY 8 MG NOSTRILALT (09:15)
[2025-01-14 09:20] VITALS: BP 152/92; PULSE 88; RESP 18; TEMP 36.7; O2SAT 99
== END 2025-01-14 09:22 | disposition home or self-care (01) ==
PROVIDERS: Nurse Practitioner Family; Emergency Provider Emergency Medicine
DX: T50.901A Poisoning by unspecified drugs, medicaments and biological substances, accidental (unintentional), initial encounter (principal); R40.4 Transient alteration of awareness; F19.10 Other psychoactive substance abuse, uncomplicated; Y92.410 Unspecified street and highway as the place of occurrence of the external cause; F32.A Depression, unspecified; F25.0 Schizoaffective disorder, bipolar type; F43.12 Post-traumatic stress disorder, chronic; F11.20 Opioid dependence, uncomplicated; Z79.899 Other long term (current) drug therapy
CPT/HCPCS: 36415; 80053; 80307; 85025; 99284; S9485

== ENCOUNTER 2025-03-05 10:38 | Outpatient (REF) | payer MEDICAID, SELFPAY ==
--- OUTSIDE RECORDS SUMMARY | 2025-03-05 09:20 | XMS_ITS | Encounter Summary ---
Author Organization [employer] Address [address] [facility] 7t [place] [address] Care Team Providers Care Paperboard Box Maker Name Role Phone Alix Vivar MD Primary Care Pro vider Reason for Referral * Consultation (Routine) - Pending Review Specialty Diagnoses / Procedures Referred By Jamie belcher Referred To Contact Podiatry Diagnoses Onychomycosis Marge Salomon NP [address] [place] [address] Phone: tel: fax: Referral ID Status Reason Start Date Expiration Date Visits Requested Visits Authorized [id number] Pending Review Specialty Services Required 03/05/2025 03/05/2026 1 1 Reason for Visit * Reason Comments Leg Swelling Encounter Details Date Type Department Care Team (Late st Contact Info) Description 03/05/2025 9:20 AM EDT Office Visit [facility] [address], [place] [phone] Bilateral swelling of feet (Primary Dx); Onychomycosis; Xerosis of skin; Elevated blood pressure reading in office with diagnosis of hypertension Social History Tobacco Use Types Packs/Day Years [...] with others, in a hotel, in a group home, living outside on the street, on a [...] AM EDT documented as of this encounter Last Filed Vital Signs Vital Sign Reading Time Taken Comments Blood Pressure 132/80 03/05/2025 10:10 AM EDT Pulse 77 03/05/2025 9:25 AM EDT Temperature 36.7 C (98.1 F) 03/05/2025 9:25 AM EDT Respiratory Rate 20 03/05/2025 9:25 AM EDT Oxygen Saturation 96% 03/05/2025 9:25 AM EDT Inhaled Oxygen Concentration - - Weight 95.3 kg (210 lb) 03/05/2025 9:25 AM EDT Height - - Body Mass Index 32.89 11/29/2023 8:59 AM EDT documented in this encounter Plan of Treatment Upcoming Encounters Date Type Department Care Team (Late st Contact Info) Description 05/31/2025 10:30 AM EDT Office Visit [facility] [address] [place] [address] MikeLatosha puente, [employer] REFIN[employer]ER [address] [place] [address] Scheduled Orders Name Type Priority Associated Diagnoses Orde r Schedule Basic Metabolic Panel Lab Routine Bilateral swelling of feet Expected: 03/05/2025 (Approximate), Expires: 03/05/2026 Scheduled Referrals Name Type Priority Associated Diagnoses Orde r Schedule Referral to Podiatry Outpatient Referral Routine Onychomycosis Expected: 03/05/2025 (Approximate), Expires: 03/05/2026 documented as of this encounter Visit Diagnoses Diagnosis Bilateral swelling of feet- Primary Swelling of limb Onychomycosis Dermatophytosis of nail Xerosis of skin Elevated blood pressure reading in office with diagnosis of hypertension documented in this encounter Additional Health Concerns Assessment Noted Time PHQ-9 Depression Total Score: 12 023 9:49 AM EST documented as of this encounter Care Teams Paperboard Box Maker Relationship Specialty Start Date End Date Alix Vivar MD [address] [place] [phone] PCP - General Internal Medicine 04/17/23 documented as of this encounter
[2025-03-05 13:12] LABS: Anion Gap 10 (12-20); Blood Urea Nitrogen 30 mg/dL (9-16); Calcium 9.5 mg/dL (8.4-10.2); Carbon Dioxide 26 mmol/L (22-29); Chloride 111 mmol/L (96-108); Estimated Glomerular Filt Rate > 60; Potassium 4.2 mmol/L (3.3-5.1); Sodium 143 mmol/L (135-145)
== END 2025-03-05 10:39 | disposition home or self-care (01) ==
LOC: HO.HHCL 10:38
PROVIDERS: Visit Provider Nurse Practitioner
DX: M79.89 Other specified soft tissue disorders (principal)
CPT/HCPCS: 36415; 80048

== ENCOUNTER 2025-04-01 13:30 | Outpatient (REF) | payer MEDICAID, SELFPAY ==
--- OUTSIDE RECORDS SUMMARY | 2025-04-01 14:15 | XMS_ITS | Encounter Summary ---
Author Organization [employer] Address [address] [facility] 7t [place] [address] Care Team Providers Care Professor Of Art Name Role Phone Alix Vivar MD Primary Care Pro vider Reason for Visit * Reason Comments Med Change Request Encounter Details Date Type Department Care Team ([facility] Contact Info) Description 07/25/2023 Refill [facility] [address] [place] [address] Alix Vivar MD [address] [place] [address] Social History Tobacco Use Types Packs/Day Years [...] AM EDT documented as of this encounter Functional Status * Over the past 2 weeks, how often have you been bothered by any of the following problems? Question Answer Date of Assessment Author Patient Health Questionnaire -2 Score 4 07/25/2023 9:49 AM Irene Miles ctoria * If you checked off any problems on this questionnaire so far, Question Answer Date of Assessment Author How difficult have these problems made it for you to do your work, take care of things at home, or get along with other people? Very difficult 07/25/2023 9:49 AM Irene Miles ctoria * Over the last 2 weeks, how often have you been bothered by any of the following problems? Question Answer Date of Assessment Author Feeling nervous, anxious, or on edge 2 07/25/2023 9:49 AM Irene Miles [email or web address] Not being able to stop or control worrying 1 07/25/2023 9:49 AM Irene Miles [email or web address] Worrying too much about different things 1 07/25/2023 9:49 AM Irene Miles [email or web address] Trouble relaxing 1 07/25/2023 9:49 AM Dania Newell Being so restless that it is hard to sit still 1 07/25/2023 9:49 AM Irene Miles [email or web address] Becoming easily annoyed or irritable 2 07/25/2023 9:49 AM Irene Miles [email or web address] Feeling afraid as if somethi ng awful might happen 1 07/25/2023 9:49 AM Irene Miles [email or web address] ANGELY-7 Total Score 9 07/25/2023 9:49 AM Dania Miles * Over the past 2 weeks, how often have you been bothered by any of the following problems? Question Answer Date of Assessment Author Little interest or pleasure in doing things More than half the days 07/25/2023 9:49 AM Dania Miles Feeling down, depressed, or hopeless More than half the days 07/25/2023 9:49 AM Dania Miles Trouble falling or staying asleep, or sleeping too much More than half the days 07/25/2023 9:49 AM Dania Miles Feeling tired or having little energy More than half the days 07/25/2023 9:49 AM Dania Miles Poor appetite or overeating Several days 07/25/2023 9:49 AM Dania Miles Feeling bad about yourself - or that you are a failure or have let yourself or your family down Not at all 07/25/2023 9:49 AM Dania Miles Trouble concentrating on things, such as reading the newspaper or watching television More than half the days 07/25/2023 9:49 AM Dania Miles Moving or speaking so slowly that other people could have noticed? Or the opposite - being so fidgety or restless that you have been moving around a lot more than usual. Several days 07/25/2023 9:49 AM Dania Miles Thoughts that you would be better off or hurting yourself in some way Not at all 07/25/2023 9:49 AM Dania Miles Patient Health Questionnaire-9 Score 12 07/25/2023 9:49 AM Dania Miles documented as of this encounter Miscellaneous Notes * Telephone Encounter - Alix Santos MD - 07/25/2023 4:45 PM EST Sent new mew documented in this encounter Plan of Treatment Upcoming Encounters Date Type Department Care Team (Late st Contact Info) Description 05/21/2025 9:00 AM EDT Office Visit [facility] [address] [place] [address] Alix Vivar MD [address] [place] [address] 05/31/2025 10:30 AM EDT Office Visit [facility] [address] [place] [address] Latosha Lira FNP [address] [place] [address] documented as of this encounter Visit Diagnoses Not on filedocumented in this encounter Additional Health Concerns Assessment Noted Time PHQ-9 Depression Total Score: 12 023 9:49 AM EST documented as of this encounter Care Teams Professor Of Art Relationship Specialty Start Date End Date Alix Vivar MD [address] [place] [phone] PCP - General Internal Medicine 04/17/23 documented as of this encounter
--- OUTSIDE RECORDS SUMMARY | 2025-04-01 14:15 | XMS_ITS | Clinical Summary ---
Author Organization [employer] Address [address] [facility] 7t [place] [address] Care Team Providers Care Gate Agent Name Role Phone Alix Vivar MD Primary Care Pro vider Allergies No known active allergies Medications * This document contains information received from the source organization and may not represent a complete record from that organization. benztropine (Cogentin) 0.5 MG tablet Take 0.5 mg by mouth at bedtime. Active Suboxone 8-[address] FILM UNDER TONGUE ONCE A DAY Active haloperidol (Haldol) 5 MG tablet Take 5 mg by mouth at bedtime. Active sertraline (Zoloft) 100 MG tablet Take 100 mg by mouth in the morning. 023 Active sertraline (Zoloft) 50 MG tablet TAKE 1 TABLET BY MOUTH DAILY TAKE WITH SERTRALINE 100MG TO MAKE 150MG A DAY 023 Active melatonin 3 MG tablet Take 1 tablet (3 mg) by mouth at bedtime. 30 tablet 2 023 Active potassium chloride CR (Klor-Con) 10 MEQ ER tablet TAKE 1 TABLET (10 MEQ) BY MOUTH IN THE MORNING 30 tablet 1 024 Active docusate sodium (Colace) 100 MG capsuleIndicati ons:Uncomplicat ed opioid dependence (CMS/HCC) TAKE 1 CAPSULE (100 MG) BY MOUTH IN THE MORNING AND AT BEDTIME NEEDED FOR CONSTIPATION 180 capsule Active nicotine (Nicoderm, Step 1) 21 MG/24HR patch PLACE 1 PATCH ON THE SKIN 1 TIME EACH DAY AT THE SAME TIME. 42 patch 024 Active ammonium lactate (Lac-Hydrin) 12 % lotionIndicatio ns:Xerosis of skin APPLY TOPICALLY IF NEEDED FOR DRY SKIN 400 mL Active hydroCHLOROthia zide 12.5 MG tabletIndicatio ns:Swelling of both lower extremities,Rosa vated blood pressure reading in office with diagnosis of hypertension Take 1 tablet (12.5 mg) by mouth Once per day. 30 tablet 1 025 2024 Active mineral oil-hydrophilic petrolatum (Aquaphor) ointment Apply topically if needed for dry skin. 396 g 1 025 2025 Active losartan (Cozaar) 50 MG tabletIndicatio ns:Primary hypertension Take 1 tablet (50 mg) by mouth Once per day. 90 tablet 025 2024 Active Umeclidinium [place] (Incruse Ellipta) 62.5 MCG/ACT aerosol powderIndicatio ns:Shortness of breath Inhale 1 Act (62.5 mcg) Once daily. 30 each 2 Active Ventolin HFA 108 (90 Base) MCG/ACT inhalerIndicati ons:Shortness of breath Inhale 2 puffs every 6 (six) hours if needed for wheezing or shortness of breath. 18 g 1 025 Active Blood Pressure kitIndications: Primary hypertension 1 each 2 times daily. 1 kit 025 2025 Active nicotine polacrilex (Nicorette) 2 MG gum Chew 1 each (2 mg) if needed for smoking cessation. Every 1-2 hours 100 each 1 025 2024 Active losartan (Cozaar) 50 MG tablet Take 1 tablet (50 mg) by mouth in the morning. 90 tablet 024 2024 Discontinued(R eorder (will not trigger notification to Pharmacy)) Ventolin HFA 108 (90 Base) MCG/ACT inhaler INHALE 2 PUFFS EVERY 6 HOURS IF NEEDED FOR WHEEZING OR SHORTNESS OF BREATH. 18 g 2 024 2024 Discontinued(R eorder (will not trigger notification to Pharmacy)) Incruse Ellipta 62.5 MCG/ACT aerosol powder INHALE 1 PUFF BY MOUTH EVERY DAY IN THE MORNING 30 each 2 024 2024 Discontinued(R eorder (will not trigger notification to Pharmacy)) ammonium lactate (Lac-Hydrin) 12 % lotion APPLY TOPICALLY IF NEEDED FOR DRY SKIN 400 mL 024 2024 Discontinued(R eorder (will not trigger notification to Pharmacy)) Fluticasone-Luis meterol (Wixela Inhub) 250-50 MCG/ACT aerosol powder Inhale. 2024 Discontinued(T herapy completed) furosemide (Lasix) 40 MG tablet Take 1 tablet (40 mg) by mouth Once per day. 90 tablet 024 2024 Discontinued(M ed list cleanup (will not trigger notification to Pharmacy)) furosemide (Lasix) 20 MG tabletIndicatio ns:Swelling of both lower extremities Take 1 tablet (20 mg) by mouth Once per day for 5 days. 5 tablet 025 2024 Discontinued(E ntered in error) nicotine polacrilex (Nicorette) 2 MG gum Chew 1 each (2 mg) if needed for smoking cessation. 100 each 1 025 2024 Discontinued(R eorder (will not trigger notification to Pharmacy)) Active Problems Problem Noted Date Diagnosed Date [...] Services needed PCP management Off-site services for , Continue with current services (defined as services in the past 12 months) . Cornell is connected with [facility] for psychiatric services and attends weekly sessions with the [facility]. Resolved Problems Problem Noted Date Diagnosed Date Resolved Date Wax in ear 07/24/2023 09/05/2023 Encounters Date Type Department Care Team Description 03/22/2025 Telephone [place] [phone] Alix Vivar MD 03/19/2025 1:00 PM EDT Office Visit [address] [address] Morena Vasquez ANP Bilateral lower extremity edema (Primary Dx); Ascending aorta dilation (CMS/HCC); Primary hypertension; Shortness of breath; Screening for colon cancer; Nicotine dependence, uncomplicated, unspecified nicotine product type; Venous insufficiency of both lower extremities 03/19/2025 Travel 03/19/[address] [address] Alix Vivar MD Durable Medical Equipment 03/19/[address] [address] Alix Vivar MD ER Follow-up 03/17/2025 10:40 AM EDT Office Visit [facility] [address] [address] [place] Schreiber MD Bilateral lower extremity edema (Primary Dx); Weight gain; Tobacco dependence in remission; Hypertension, unspecified type 03/11/2025 9:20 AM EDT Office Visit [facility] [address] [address] Chloé Castellano MD Chronic obstructive pulmonary disease, unspecified COPD type ([facility]) (Primary Dx) 03/11/2025 [facility] [address] [address] Marge Salomon NP 03/11/[address] [address] Alix Vivar MD Nurse Triage 03/11/2025 Travel 03/10/[address] [address] Alix Vivar MD Med Refill 03/10/[address] [address] Alix Vivar MD Medication Question 03/08/2025 Patient Outreach [address] [address] Bebo Medina [facility] 03/05/2025 9:20 AM EDT [facility] [address] [address] Marge Salomon NP Swelling of both lower extremities (Primary Dx); Onychomycosis; Xerosis of skin; Elevated blood pressure reading in office with diagnosis of hypertension 03/05/2025 Results Follow-Up [address] [address] Marge Salomon NP Basic Metabolic Panel 03/05/2025 Travel from Last 3 Months Immunizations Immunization Administration [...] with others, in a hotel, in a skilled nursing, living outside on the street, on a [...] Sign Reading Time Taken Comments Blood Pressure 150/80 03/19/2025 1:21 PM EDT Pulse 81 03/19/2025 1:21 PM EDT Temperature 36.4 C (97.5 F) 03/17/2025 10:32 AM EDT Respiratory Rate 16 03/19/2025 1:21 PM EDT Oxygen Saturation 96% 03/17/2025 10:32 AM EDT Inhaled Oxygen Concentration - - Weight 103 kg (227 lb) 03/19/2025 1:21 PM EDT Height 170.2 cm (5' 7 ) 03/19/2025 1:21 PM EDT Body Mass Index 35.55 03/19/2025 1:21 PM EDT Plan of Treatment Upcoming Encounters Date Type Department Care Team (Late st Contact Info) Description 05/21/2025 9:00 AM EDT Office Visit [facility] [address] [place] [address] Alix Vivar MD [address] [place] [address] 05/31/2025 10:30 AM EDT Office Visit [facility] [address] [place], [place] [phone] Latosha Lira, INTERNAL CONTROLS ANALYST [address] [place] [address] Health Maintenance Due Date Last Done Comments [...] Additional history exists SDOH Screening 09/04/2024 09/04/2023 Influenza Vaccine (#1) 2025 , 08/25/2021, 04/13/2020, Additional history exists Tobacco Screening 03/19/2026 03/19/2025 Lipid Panel 09/24/2028 09/24/2023 RSV Patients and [...] Procedure Name Priority Date/Time Associated Diagnosis Comments POCT COVID-19 AG ABREU ID NOW Routine 03/11/2025 10:13 AM EDT Chronic obstructive pulmonary disease, unspecified COPD type (CMS/HCC) POCT INFLUENZA A (ID NOW RAPID MOLECULAR) Routine 03/11/2025 10:13 AM EDT Chronic obstructive pulmonary disease, unspecified COPD type (CMS/HCC) POCT INFLUENZA B (ID NOW RAPID MOLECULAR) Routine 03/11/2025 10:13 AM EDT Chronic obstructive pulmonary disease, unspecified COPD type (CMS/HCC) BASIC METABOLIC PANEL Routine 03/05/2025 10:46 AM EDT Swelling of both lower extremities HEPATITIS C AB W/REFL TO HCV RNA, QN, PCR Routine 09/24/2023 10:36 AM EST Annual physical exam HIV 1/2 ANTIGEN/ANTIBODY, FOURTH GENERATION W/RFL Routine 09/24/2023 10:36 AM EST Annual physical exam LIPID PANEL, STANDARD Routine 09/24/2023 10:36 AM EST Annual physical exam from Last 3 Months or Most Recently Relevant to Health Maintenance Results * Influenza B (ID NOW Rapid Molecular) (03/11/2025 10:13 AM EDT) Influenza B Negative Negative, Indeterminate [facility] Swab 03/11/2025 10:1 3 AM EDT Chloé Castellano MD POINT OF CARE TEST ENTER/E DIT ORDERABLES Final Result Performing Organization Address City/[facility]/ZIP Co de Phone Number [facility] [address] [place] [phone] * Influenza A (ID NOW Rapid Molecular) (03/11/2025 10:13 AM EDT) Pathologist [facility] Influenza A Negative Negative, Indeterminate [facility] Swab 03/11/2025 10:1 3 AM EDT Chloé Castellano MD POINT OF CARE TEST ENTER/E DIT ORDERABLES Final Result Performing Organization Address City/[facility]/ZIP Co de Phone Number [facility] [address] [place] [phone] * POCT COVID-19 Ag Abreu ID NOW (03/11/2025 10:13 AM EDT) Coronavirus Antigen PCR Negative Negative, Indeterminate, None Detected, Invalid, Specimen unsatisfactory for evaluation, Weakly Positive, 2+ Swab 03/11/2025 10:1 3 AM EDT Chloé Castellano MD POINT OF CARE TEST ENTER/E DIT ORDERABLES Final Result * (ABNORMAL) Basic Metabolic Panel (03/05/2025 10:46 AM EDT) Sodium 143 135 - 145 mmol/L [facility] Potassium 4.2 3.3 - 5.1 mmol/L [facility] Chloride 111(H) 96 - 108 mmol/L [facility] Carbon Dioxide 26 22 - 29 mmol/L [facility] Anion Gap 10(L) 12 - 20 [facility] Urea Nitrogen (BUN) 30(H) 9 - 16 mg/dL [facility] Creatinine, Serum 0.80 0.5 - 1.4 mg/dL [facility] Estimated Glomerular Filt Rate >60 [facility] Comment:Chronic Kidney Disea se: Estimated GFR < 60 mL/min/[id number] Kidney Disease: Estimated GFR < 15 mL/min/1.73m2 Glucose 95 60 - 115 mg/dL [facility] Calcium 9.5 8.4 - 10.2 mg/dL [facility] Blood Venous blood specimen / Unknown 03/05/2025 10:46 AM EDT 03/05/2025 12:17 PM EDT Marge Salomon NP LAB BLOOD ORDERABLES Final Resu lt [facility] [address] [place] [phone] [phone] * Hepatitis C Antibody with Reflex to HCV, RNA, Quantitative, Real-Time PCR (09/24/2023 10:36 AM EST) Hepatitis C Antibody Nonreactive Nonreactive [facility] Comment:Antibodies to HCV no t detected; does not exclude early acuteHCV infection. Blood Venous blood specimen / Unknown 09/24/2023 10:36 AM EST 09/24/2023 11:22 AM EST us Alix Santos MD LAB BLOOD ORDERAB LES Final Result Performing Organization Address [facility] Co de Phone Number [facility] [address] [place] [phone] * HIV-1/2 Antigen and Antibodies, Fourth Generation, with Reflexes (09/24/2023 10:36 AM EST) HIV AB/AG Nonreactive Nonreactive [facility] Comment:HIV-1 p24 Ag and/or HIV-1/HIV-2 Ab not detected.A test result that is nonreactive does not exclude thepossibility of exposure to or infection with HIV-1 and/orHIV-2. Nonreactive results in this assay for individualswith prior exposure to HIV-1 and/or HIV-2 may be due toantigen and antibody levels that are below the limit ofdetection of this assay.The [employer] HIV Ag/Ab Combo assay result andsupplemental assay results should be interpreted inconjunction with the patient's clinical presentation,history and other laboratory results. If the results areinconsistent with clinical evidence, additional testing issuggested to confirm the result. Blood Venous blood specimen / Unknown 09/24/2023 10:36 AM EST 09/24/2023 11:22 AM EST us Alix Santos MD LAB BLOOD ORDERAB LES Final Result Performing Organization Address [facility]/ZIP Co de Phone Number [facility] [address] [place] [phone] [phone] * (ABNORMAL) Lipid Panel, Standard (09/24/2023 10:36 AM EST) Triglycerides 194(H) <150 mg/dL [facility] Comment:Desirable Triglyceri de: less than 150 mg/dLBorderline High Triglyceride 150-199 mg/dLHigh Triglyceride: 200-499 mg/dLVery High Triglyceride: greater than or equal to 5OO mg/dL Cholesterol 195 <200 mg/dL [facility] Comment:Desirable Cholestero l: less than 200 mg/dLBorderline High Cholesterol: 200-239 mg/dLHigh Cholesterol: greater than 239 mg/dL LDL Cholesterol Calculated 126(H) <100 mg/dL [facility] Comment:Desirable LDL: less than 100 mg/dLNear Optimal/Above Optimal LDL: 110- 129 mg/dLBorderline High LDL: 130-159 mg/dLHigh LDL: 160-189 mg/dLVery High LDL: greater than or equal to 190 mg/dL HDL Cholesterol 31(L) >40 mg/dL [facility] Comment:Desirable HDL: great er than 40 mg/dL Note: This HDL assay may give artificially low results in patients with liver disease. Blood Venous blood specimen / Unknown 09/24/2023 10:36 AM EST 09/24/2023 11:22 AM EST Alix Santos MD LAB BLOOD ORDERAB LES Final Result [facility] [address] [place] [phone] from Last 3 Months or Most Recently Relevant to Health Maintenance Insurance [facility] C3 Care Teams Gate Agent Relationship Specialty Start Date End Date Alix Vivar MD [address] [place] [address] [phone] PCP - General Internal Medicine 04/17/23
--- OUTSIDE RECORDS SUMMARY | 2025-04-01 14:15 | XMS_ITS | Encounter Summary ---
Author Organization [employer] Address [address] [facility] 7t [place] [address] Care Team Providers Care Public Events Facilities Rental Manager Name Role Phone Alix Vivar MD Primary Care Pro vider Reason for Visit * Reason Comments Med Refill Encounter Details Date Type Department Care Team ([facility] st Contact Info) Description 11/18/2023 Refill [facility] [address] [place] [address] Marie Celaya MD [address] [place] [address] Social History Tobacco Use Types Packs/Day Years [...] with others, in a hotel, in a retirement, living outside on the street, on a [...] as of this encounter Plan of Treatment Upcoming Encounters Date Type Department Care Team (Late st Contact Info) Description 05/21/2025 9:00 AM EDT Office Visit [facility] [address] [place] [address] Alix Vivar MD [address] [place] [phone] 05/31/2025 10:30 AM EDT Office Visit [facility] [address] [place] [address] Latosha Lira FNP [address] [place] [address] documented as of this encounter Visit Diagnoses Not on filedocumented in this encounter Additional Health Concerns Assessment Noted Time PHQ-9 Depression Total Score: 12 023 9:49 AM EST documented as of this encounter Care Teams Public Events Facilities Rental Manager Relationship Specialty Start Date End Date Alix Vivar MD [address] [place] [phone] PCP - General Internal Medicine 04/17/23 documented as of this encounter
--- OUTSIDE RECORDS SUMMARY | 2025-04-01 14:15 | XMS_ITS | Encounter Summary ---
Author Organization [employer] Address [address] [facility] 7t [place] [address] Care Team Providers Care Buffer Copper Name Role Phone Alix Vivar MD Primary Care Pro vider Reason for Visit * Reason Comments Med Refill Encounter Details Date Type Department Care Team ([facility] st Contact Info) Description 11/18/2023 Refill [facility] [address] [place] [address] Alix Vivar MD [address] [place] [address] Social History Tobacco Use Types Packs/Day Years [...] with others, in a hotel, in a [place] [facility], living outside on the street, on a [...] Description 05/21/2025 9:00 AM EDT Office Visit [facility] [address] [place] [address] Alix Vivar MD [address] [place] [phone] 05/31/2025 10:30 AM EDT Office Visit [facility] [address] [place] [address] Latosha Lira FNP [address] [place] [address] documented as of this encounter Visit Diagnoses Not on filedocumented in this encounter Additional Health Concerns Assessment Noted Time PHQ-9 Depression Total Score: 12 023 9:49 AM EST documented as of this encounter Care Teams Buffer Copper Relationship Specialty Start Date End Date Alix Vivar MD [address] [place] [phone] PCP - General Internal Medicine 04/17/23 documented as of this encounter
--- OUTSIDE RECORDS SUMMARY | 2025-04-01 14:15 | XMS_ITS | Encounter Summary ---
Author Organization [employer] Address [address] [facility] [address] [place] [address] Care Team Providers Care Joiners Supervisor Name Role Phone Alix Vivar MD Primary Care Pro vider Reason for Visit * Reason Onset Date Comments ER Follow-up 03/19/2025 Encounter Details Date Type Department Care Team ([facility] st Contact Info) Description 03/19/2025 Telephone [facility] MEDICINE [address] [place] [address] Alix Vivar MD [address] [place] [address] ER Follow-up Social History Tobacco Use Types Packs/Day Years [...] encounter Miscellaneous Notes * Telephone Encounter - Charmaine Bartholomew RN - 03/19/2025 9:48 AM EDT Date: 03/18 Hospital: [facility] Seen for: leg swelling Symptomatic Yes *if yes message should go to Triage Called [phone]- Number not in service. Mobile number is an invalid number. Called Sarah from [facility] [phone]. Sarah states that pt. Went to [facility] walk in and Provider wantedpt. To go to to ED for possible CHF. CHF was ruled out. Pt. Had weight gain and provider was concerned. Pt. Went to [facility] ED on 03/18/25- for bilateral leg swelling and weight gain. Pt. Was DX. With venous insufficiency /Lymphedema according to Sarah from [facility]. Pt. Is currently in program there this am. Sarah states that pt. Was given a script for compression stockings but no Dx. Was put on order and it is required to have a DX. Associated with order for pt. To receive Compression stockings. Appt. Made for 1pm today to fu and to get proper orders and possible referral due to Venous insufficiency Dx. From ED. I will send this note to clinical coordinators to get [facility] ED visit into pt. Chart from 03/18/25 for 1pm appt today 03/19/25 with Morena Juarez. Protocol Used: Leg Swelling and Edema (Adult) Protocol-Based Disposition: See in Office or Video Visit Today Video visit offer not recorded Positive Triage Questions: * Moderate swelling of both ankles (e.g., swelling extends up to the knees) AND new-onset or getting worse * Patient wants to be seen * All higher-acuity triage questions were negative Care Advice Discussed: * Reassurance and Education - Heat Edema * How to Decrease Ankle and Lower Leg Swelling * Telephone Encounter - Eleanor Carreon - 03/19/2025 9:35 AM EDT Patient calling to report ED visit on : Date: 03/18 Hospital: [facility] Seen for: leg swelling Symptomatic Yes *if yes message should go to Triage Patient advised will forward to team nurse for follow up documented in this encounter Plan of Treatment Upcoming Encounters Date Type Department Care Team (Late st Contact Info) Description 05/21/2025 9:00 AM EDT Office Visit [facility] MEDICINE [address] [place] [address] Alix Vivar MD [address] [place] [address] 05/31/2025 10:30 AM EDT Office Visit [facility] [address] [place] [address] Latosha Lira, [employer] [address] [place] [address] documented as of this encounter Visit Diagnoses Not on filedocumented in this encounter Additional Health Concerns Assessment Noted Time PHQ-9 Depression Total Score: 12 07/25/ 023 9:49 AM EST documented as of this encounter Care Teams Joiners Supervisor Relationship Specialty Start Date End Date Alix Vivar MD [address] [place] [phone] PCP - General Internal Medicine 04/17/23 documented as of this encounter
[2025-04-01 16:10] LABS: MANUAL DIFF FLAG NO
[2025-04-01 16:21] LABS: Hematocrit 31.9 % (42.0-52.0); Hemoglobin 10.7 g/dl (14.0-18.0); Imm Gran Abs Auto 0.01 X10*3/uL (0.00-0.03); Imm Gran Pct Auto 0.2 % (0.0-0.4); Lymphocytes Absolute Auto 1.8 X10*3/uL (1.2-4.9); Mean Corpuscular HGB Conc 33.5 g/dl (31.0-36.0); Mean Corpuscular Hemoglobin 29.5 pg (27.0-33.0); Mean Corpuscular Volume 87.9 fL (80.0-98.0); NRBC Abs Auto 0.000 X10*3/uL (0.0-0.012); NRBC Pct Auto 0.0 /100WBC (0.0-0.2); Platelet Count 209 X10*3/uL (160-400); Red Blood Count 3.63 X10*6/uL (4.60-5.80); White Blood Count 5.3 X10*3/uL (4.8-10.8)
[2025-04-01 16:31] LABS: Alanine Aminotransferase 28 U/L (0-40); Albumin Level 3.9 g/dL (3.5-5.0); Alkaline Phosphatase 68 U/L (39-117); Anion Gap 10 (12-20); Aspartate Amino Transferase 25 U/L (5-37); Blood Urea Nitrogen 24 mg/dL (9-16); Calcium 9.1 mg/dL (8.4-10.2); Carbon Dioxide 30 mmol/L (22-29); Chloride 106 mmol/L (96-108); Cholesterol 139 mg/dL (<200); Estimated Glomerular Filt Rate > 60; HDL Cholesterol 36 mg/dL (>40); Potassium 4.0 mmol/L (3.3-5.1); Sodium 142 mmol/L (135-145); Total Protein 6.8 g/dL (6.5-8.0); Triglycerides 165 mg/dL (<150)
[2025-04-01 16:47] LABS: B Type Natriuretic Peptide 12 pg/mL (<100)
[2025-04-01 17:48] LABS: Microalbum/Creatinine Ratio Ur 12.0 ug/mg cr (<30)
== END 2025-04-01 13:31 | disposition home or self-care (01) ==
LOC: HO.HHCL 13:30
PROVIDERS: PCP Nurse Practitioner Primary Care; Visit Provider Nurse Practitioner Primary Care
DX: I10 Essential (primary) hypertension (principal); R60.0 Localized edema; R06.02 Shortness of breath
CPT/HCPCS: 36415; 80053; 80061; 82043; 82570; 83880; 85025

== ENCOUNTER 2025-04-09 11:48 | Outpatient (REF) | payer MEDICAID, SELFPAY ==
--- NOTE | ~2025-04-09 | XR_ITS ---
EXAMINATION: XR CHEST CLINICAL INFORMATION: sob ,Decrease Breath sounds COMPARISON: 10/10/2022. TECHNIQUE: 2 views of the chest were obtained. FINDINGS: The cardiac, hilar, and mediastinal contours are normal. The lungs are hyperaerated, however clear bilaterally. There is no pneumothorax or pleural effusion. There is no focal osseous or soft tissue abnormality. Surgical anchors noted in the left humeral head. XR/XR chest 2V IMPRESSION: Hyperaerated lungs suggesting COPD. No active pulmonary disease. Electronically signed by: Andry Maldonado MD 04/09/2025 12:56 PM EDT
--- OUTSIDE RECORDS SUMMARY | 2025-04-09 09:45 | XMS_ITS | Encounter Summary ---
Author Organization [employer] Address [address] [place] [address] [address] [place] [address] Care Team Providers Care Service Aide Name Role Phone Alix Vivar MD Primary Care Pro vider Reason for Referral * Imaging (Routine) - Pending Review Specialty Diagnoses / Procedures Referred By Jamie t Referred To Contact Cardiology Diagnoses Venous insufficiency of both lower extremities Procedures Vascular US lower extremity venous insufficiency bilateral Alix Vivar MD [address] [place] [address] Phone: tel: fax: [address] Phone: tel: fax: Referral ID Status Reason Start Date Expiration Date Visits Requested Visits Authorized [id number] Pending Review Perform Procedure 04/09/2025 04/09/2026 1 1 * Imaging (Routine) - Pending Review Specialty Diagnoses / Procedures Referred By Contac t Referred To Contact Cardiology Diagnoses Shortness of breath Procedures Transthoracic Echo (TTE) Complete Alix Vivar MD [address] [place] [address] Phone: tel: fax: [address] Phone: tel: fax: Referral ID Status Reason Start Date Expiration Date Visits Requested Visits Authorized [id number] Pending Review Perform Procedure 04/09/2025 04/09/2026 1 1 Encounter Details Date Type Department Care Team (Latest Contact Info) Description 04/09/2025 9:45 AM EDT Office Visit [facility] MEDICINE [address] [place] [address] Alix Vivar MD [address] [place] [address] Shortness of breath (Primary Dx); Venous insufficiency of both lower extremities; Iron deficiency anemia, unspecified iron deficiency anemia type; Uncomplicated opioid dependence (CMS/HCC); Xerosis of skin Social History Tobacco Use Types Packs/Day Years [...] Answer Date Recorded Patient Health Questionnaire-9 Score 11 04/09/2025 Patient Health Questionnaire-9 Score 11 04/09/2025 Last PHQ-9: Questionnaire Data Not on file 0 04/09/2025 Housing Stability Answer Date Recorded What is your housing situation today? I do not have housing (Staying with others, in a hotel, in a residential, living outside on the street, on a beach, in a car, or in a park 04/09/[address] you li ve. Do you have problems with any of the following? None of the above 04/09/2025 Food Insecurity Answer Date Recorded Within the past 12 months, y ou worried that your food would run out before you got money to buy more: Never True 04/09/2025 Within the past 12 months,th e food you bought just didn't last and you didn't have enough money to get more: Never True 12/2024 Transportation Answer Date Recorded In the past 12 months, has l ack of transportation kept you from medical appts, meetings, work or from getting things needed for daily living? No 04/09/2025 Utilities Answer Date Recorded In the past 12 months, has t he electric, gas, oil or water company threatened to shut off services in your home? No 04/09/2025 Depression Answer Date Recorded Patient Health Questionnaire-2 Score 1 04/09/2025 Internet Access Answer Date Recorded Internet Access Q1 Yes 04/09/2025 Internet Access Q2 Not on file 04/09/2025 Sex and Gender Information Value Date Recorded Sex Assigned at Male 06/04/2022 10:36 AM EDT Legal Sex Male 10:36 AM EDT Gender Identity Male 06/04/2022 10:36 AM EDT Sexual Orientation Straight 06/04/2022 10 :36 AM EDT documented as of this encounter Last Filed Vital Signs Vital Sign Reading Time Taken Comments Blood Pressure 124/82 04/09/2025 10:06 AM EDT Pulse 70 04/09/2025 10:06 AM EDT Temperature 36.2 C (97.1 F) 04/09/2025 10:06 AM EDT Respiratory Rate 20 04/09/2025 10:06 AM EDT Oxygen Saturation 98% 04/09/2025 10:06 AM EDT Inhaled Oxygen Concentration - - Weight 111 kg (245 lb 9.6 oz) 04/09/2025 10:06 A M EDT Height 170.2 cm (5' 7 ) 04/09/2025 10:06 AM EDT Body Mass Index 38.47 04/09/2025 10:06 AM EDT documented in this encounter Functional Status * Over the past 2 weeks, how often have you been bothered by any of the following problems? Question Answer Date of Assessment Author Patient Health Questionnaire -2 Score 1 04/09/2025 11:14 AM EDT Christina Maravilla MA * Little interest or pleasure in doing things Answer Date of Assessment Author Not at all 04/09/2025 11:14 AM EDT Christina Maravilla MA * Feeling down, depressed, or hopeless Answer Date of Assessment Author Several days 04/09/2025 11:14 AM EDT Christina Maravilla MA * Trouble falling or staying asleep, or sleeping too much Answer Date of Assessment Author Several days 04/09/2025 11:14 AM EDT Christina Maravilla MA * Feeling tired or having little energy Answer Date of Assessment Author More than half the days 04/09/2025 11:14 AM Christina Chery MA * Poor appetite or overeating Answer Date of Assessment Author More than half the days 04/09/2025 11:14 AM Christina Chery MA * Feeling bad about yourself - or that you are a failure or have let yourself or your family down Answer Date of Assessment Author Nearly every day 04/09/2025 11:14 AM Christina Chery MA * Trouble concentrating on things, such as reading the newspaper or watching television Answer Date of Assessment Author More than half the days 04/09/2025 11:14 AM Christina Chery MA * Moving or speaking so slowly that other people could have noticed? Or the opposite - being so fidgety or restless that you have been moving around a lot more than usual. Answer Date of Assessment Author Not at all 04/09/2025 11:14 AM Christina Chery MA * Thoughts that you would be better off or hurting yourself in some way Answer Date of Assessment Author Not at all 04/09/2025 11:14 AM Christina Chery MA * Patient Health Questionnaire-9 Score Answer Date of Assessment Author 11 04/09/2025 11:14 AM Christina Chery MA * Over the last 2 weeks, how often have you been bothered by any of the following problems? Question Answer Date of Assessment Author Feeling nervous, anxious, or on edge 1 04/09/2025 11:13 AM Christina Chery MA Not being able to stop or co ntrol worrying 2 04/09/2025 11:13 AM Christina Chery MA Worrying too much about diff erent things 1 04/09/2025 11:13 AM Christina Chery MA Trouble relaxing 1 04/09/2025 11:13 AM Christina Chery MA Being so restless that it is hard to sit still 1 04/09/2025 11:13 AM EDT Christina Maravilla MA Becoming easily annoyed or irritable 2 04/09/2025 11:13 AM EDT Christina Maravilla MA Feeling afraid as if somethi ng awful might happen 2 04/09/2025 11:13 AM EDT Christina Maravilla MA ANGELY-7 Total Score 10 04/09/2025 11:13 AM EDT Christina Maravilla MA documented as of this encounter Plan of Treatment Upcoming Encounters Date Type Department Care Team (Late st Contact Info) Description 04/30/2025 9:45 AM EDT Office Visit [facility] MEDICINE [address] [place] [address] Alix Vivar MD [address] [place] [address] 05/21/2025 9:00 AM EDT Office Visit [facility] MEDICINE [address] [place] [address] Alix Vivar MD [address] [place] [address] 05/31/2025 10:30 AM EDT Office Visit [facility] MED [facility] PEDS [address] [place] [address] Latosha Lira, LEAD APPLICATION ARCHITECT [address] [place] [address] Scheduled Orders Name Type Priority Associated Diagnoses Order Schedule Transthoracic Echo (TTE) Complete Echocardiography Routine Shortness of breath Expected: 04/09/2025 (Approximate), Expires: 04/09/2027 C-reactive Protein Lab Routine Iron deficiency anemia, unspecified iron deficiency anemia type Expected: 04/09/2025 (Approximate), Expires: 04/09/2026 Ferritin Lab Routine Iron deficiency anemia, unspecified iron deficiency anemia type Expected: 04/09/2025 (Approximate), Expires: 04/09/2026 Haptoglobin Lab Routine Iron deficiency anemia, unspecified iron deficiency anemia type Expected: 04/09/2025 (Approximate), Expires: 04/09/2026 Iron And Total Iron Binding Capacity Lab Routine Iron deficiency anemia, unspecified iron deficiency anemia type Expected: 04/09/2025 (Approximate), Expires: 04/09/2026 Lactate Dehydrogenase (LD) Lab Routine Iron deficiency anemia, unspecified iron deficiency anemia type Expected: 04/09/2025 (Approximate), Expires: 04/09/2026 Reticulocyte Count Lab Routine Iron deficiency anemia, unspecified iron deficiency anemia type Expected: 04/09/2025 (Approximate), Expires: 04/09/2026 Sed Rate by Modified Westergren Lab Routine Iron deficiency anemia, unspecified iron deficiency anemia type Expected: 04/09/2025 (Approximate), Expires: 04/09/2026 TSH with Reflex to Free T4 Lab Routine Iron deficiency anemia, unspecified iron deficiency anemia type Expected: 04/09/2025 (Approximate), Expires: 04/09/2026 Vitamin B12 (Cobalamin) and Folate Panel, Serum Lab Routine Iron deficiency anemia, unspecified iron deficiency anemia type Expected: 04/09/2025 (Approximate), Expires: 04/09/2026 CBC auto differential Lab Routine Iron deficiency anemia, unspecified iron deficiency anemia type Expected: 04/09/2025 (Approximate), Expires: 04/09/2026 Drug Toxicology Monitoring 9 with Confirmation, Urine Lab Routine Iron deficiency anemia, unspecified iron deficiency anemia type Expected: 04/09/2025 (Approximate), Expires: 04/09/2026 Fecal Globin By Immunochemistry Lab Routine Iron deficiency anemia, unspecified iron deficiency anemia type Expected: 04/09/2025 (Approximate), Expires: 04/09/2026 Hemoglobin A1c Lab Routine Shortness of breath Expected: 04/09/2025 (Approximate), Expires: 04/09/2026 XR Chest 2 Views Imaging Routine Shortness of breath Expected: 04/09/2025, Expires: 04/09/2026 documented as of this encounter Visit Diagnoses Diagnosis Shortness of breath- Primary Venous insufficiency of both lower extremities Iron deficiency anemia, unspecified iron deficiency anemia type Uncomplicated opioid dependence (CMS/HCC) Xerosis of skin documented in this encounter Additional Health Concerns Assessment Noted Time PHQ-9 Depression Total Score: 11 025 11:14 AM EDT documented as of this encounter Care Teams Service Aide Relationship Specialty Start Date End Date Alix Vivar MD [address] [place] [phone] PCP - General Internal Medicine 04/17/23 documented as of this encounter
--- OUTSIDE RECORDS SUMMARY | 2025-04-09 12:35 | XMS_ITS | Encounter Summary ---
Author Organization [employer] Address 75 [facility] 7 [place] [address] Care Team Providers Care Armed Security Officer Name Role Phone Alix Vivar MD Primary Care Pro vider Reason for Visit * Reason Comments Med Change Request Encounter Details Date Type Department Care Team (Late st Contact Info) Description 07/25/2023 Refill [facility] [address] [place] [address] Alix Vivar MD [address] [place] [address] Social History Tobacco Use Types Packs/Day Years [...] Very difficult 07/25/2023 9:49 AM Irene Miles [email or web address] * Over the last 2 weeks, how [...] things 1 07/25/2023 9:49 AM Irene Miles Trouble relaxing 1 07/25/2023 9:49 AM Dania [...] than half the days 07/25/2023 9:49 AM Daina Miles Feeling tired or having little energy [...] Description 04/30/2025 9:45 AM EDT Office [facility] [address] [place] [phone] Alix iVvar MD [address] [place] [phone] 05/21/2025 9:00 AM EDT Office Visit [facility] [address] [place] [address] Alix Vivar MD [address] [place] [address] 05/31/2025 10:30 AM EDT Office [facility] [address] [place], [place] [phone] Latosha Lira FNP [address] [place] [address] documented as of this encounter Visit Diagnoses Not on filedocumented in this encounter Additional Health Concerns Assessment Noted Time PHQ-9 Depression Total Score: 12 023 9:49 AM EST documented as of this encounter Care Teams Armed Security Officer Relationship Specialty Start Date End Date Alix Vivar MD [address] [place] [address] PCP - General Internal Medicine 04/17/23 documented as of this encounter
--- OUTSIDE RECORDS SUMMARY | 2025-04-09 12:35 | XMS_ITS | Encounter Summary ---
Author Organization [employer] Address 75 [facility] 7 [place] [address] Care Team Providers Care Slug Press Operator Name Role Phone Alix Vivar MD Primary Care Pro vider Reason for Visit * Reason Onset Date Comments ER Follow-up 03/19/2025 Encounter Details Date Type Department Care Team ([facility] st Contact Info) Description 03/19/2025 Telephone [facility] MEDICINE [address] [place] [address] Alix Vivar MD [address] [place] [address] ER Follow-up Social History Tobacco Use Types [...] with others, in a hotel, in a fci, living outside on the street, on a [...] 03/19/2025 9:48 AM EDT Date: 03/18 Hospital: [facility] Seen for: leg swelling Symptomatic Yes *if yes message should go to Triage Called [phone]- Number not in service. Mobile number is an invalid number. Called Sarah from [facility] [phone]. Sarah states that pt. Went to [facility] walk in and Provider wantedpt. To go to to ED for possible CHF. CHF was ruled out. Pt. Had weight gain and provider was concerned. Pt. Went to [facility] ED on 03/18/25- for bilateral leg swelling and weight gain. Pt. Was DX. With venous insufficiency /Lymphedema according to Sarah from [facility]. Pt. Is currently in program there [...] this note to clinical coordinators to get [facility] ED visit into pt. Chart from 03/18/25 [...] ED visit on : Date: 03/18 Hospital: [facility] Seen for: leg swelling Symptomatic Yes *if yes message should go to Triage Patient advised will forward to team nurse for follow up documented in this encounter Plan of Treatment Upcoming Encounters Date Type Department Care Team (Late st Contact Info) Description 04/30/2025 9:45 AM EDT Office Visit [facility] MEDICINE [address] [place] [phone] Alix Vivar MD [address] [place] [phone] 05/21/2025 9:00 AM EDT Office Visit [facility] MEDICINE [address] [place] [address] Alix Vivar MD [address] [place] [address] 05/31/2025 10:30 AM EDT Office Visit [facility] MED [facility] PEDS [address] [place] [address] Latosha Lira FNP [address] [place] [address] documented as of this encounter Visit Diagnoses Not on filedocumented in this encounter Additional Health Concerns Assessment Noted Time PHQ-9 Depression Total Score: 12 023 9:49 AM EST documented as of this encounter Care Teams Slug Press Operator Relationship Specialty Start Date End Date Alix Vivar MD [address] [place] [address] PCP - General Internal Medicine 04/17/23 documented as of this encounter
--- OUTSIDE RECORDS SUMMARY | 2025-04-09 12:35 | XMS_ITS | Encounter Summary ---
Author Organization [employer] Address 75 [facility] 7 [place] [address] Care Team Providers Care Airplane Tester Name Role Phone Alix Vivar MD Primary Care Pro vider Reason for Visit * Reason Onset Date Comments Call Back Request 04/02/2025 Encounter Details Date Type Department Care Team ([facility] st Contact Info) Description 04/02/2025 Telephone [facility] MEDICINE [address] [place] [address] Alix Vivar MD [address] [place] [address] Call Back Request Social History Tobacco Use Types Packs/Day Years [...] with others, in a hotel, in a detention, living outside on the street, on a [...] the past 12 months, has t he [employer], gas, oil or water [employer] threatened to shut off services in your [...] encounter Miscellaneous Notes * Telephone Encounter - Emily Kline RN - 04/07/2025 3:12 PM EDT Return call from Miladis at [facility] who states that the pt has had significant gains in weight over the past few weeks. Pt was last seen in office by Morena Vasquez on 03/19 and weight was recorded at 227 Lbs. Today the pt weight is up to 244 Lbs. The pt was recently in the [facility] ED on 03/17 for BLE swelling. At that time the pt also had a significant weight gain of 20 pounds in two weeks. Pt was given IV lasix and discharged on hydrochlorothiazide. The pt has been taking this medication as prescribed since discharge and is still gaining weight. Pt still reports shortness of breath. Miladis was agreeable to scheduling the pt with PCP on Monday 04/09 for a sick onsite. The pt is also out of hydrochlorothi azide and will need a refill is diuretics are still recommended by provider. * Telephone Encounter - Emily Kline RN - 04/07/2025 2:59 PM EDT Return call placed to Sarah at [facility] and a VM was left to call back the office * Telephone Encounter - Eleanor Carreon - 04/07/2025 11:35 AM EDT Tc from Miladis at [facility] requesting a call back regarding prior message. Contact Miladis [phone] * Telephone Encounter - Emily Kline RN - 04/06/2025 11:02 AM EDT TC placed to Sarah at [facility] at LVM to call back the office * Telephone Encounter - Eleanor Carreon - 04/02/2025 2:39 PM EDT Tc from Sarah at [facility] requesting a call back to discuss last apt on 03/19 , as pt continues to gain weight and she is concerned. Contact Sarah at [phone] documented in this encounter Plan of Treatment Upcoming Encounters Date Type Department Care Team (Late st Contact Info) Description 04/30/2025 9:45 AM EDT Office Visit [facility] MEDICINE [address] [place] [address] Alix Vivar MD [address] [place] [address] 05/21/2025 9:00 AM EDT Office Visit [facility] MEDICINE [address] [place] [address] Alix Vivar MD [address] [place] [address] 05/31/2025 10:30 AM EDT Office Visit [facility]S [address] [place] [address] Latosha Lira FNP [address] [place] [address] documented as of this encounter Visit Diagnoses Not on filedocumented in this encounter Additional Health Concerns Assessment Noted Time PHQ-9 Depression Total Score: 12 023 9:49 AM EST documented as of this encounter Care Teams Airplane Tester Relationship Specialty Start Date End Date Alix Vivar MD [address] [place] [address] PCP - General Internal Medicine 04/17/23 documented as of this encounter
--- OUTSIDE RECORDS SUMMARY | 2025-04-09 12:35 | XMS_ITS | Clinical Summary ---
Author Organization [employer] Address [address] [facility] [address] [place] [address] Care Team Providers Care Copywriting Intern Name Role Phone Alix Vivar MD Primary Care Pro vider Allergies No known active allergies Medications * This document contains information received from the source organization and may not represent a complete record from that organization. Blood Pressure kitIndications: Primary hypertension 1 each 2 times daily. 1 kit 025 2025 Active furosemide (Lasix) 20 MG tablet Take 1 tablet (20 mg) by mouth Once per day. 90 tablet 025 2025 Active losartan (Cozaar) 25 MG tablet Take 1 tablet (25 mg) by mouth Once per day. 90 tablet 025 2025 Active Fluticasone-Ume clidin-Vilant (Trelegy Ellipta) 200-62.5-25 MCG/ACT aerosol powder Inhale 1 Inhalation Once per day. 1 each 5 Active Ventolin HFA 108 (90 Base) MCG/ACT inhalerIndicati ons:Shortness of breath Inhale 2 puffs every 6 (six) hours if needed for wheezing or shortness of breath. 18 g 5 Active docusate sodium (Colace) 100 MG capsuleIndicati ons:Uncomplicat ed opioid dependence (CMS/HCC) Take 1 capsule (100 mg) by mouth if needed in the morning and at bedtime for constipation. 180 capsule Active ammonium lactate (Lac-Hydrin) 12 % lotionIndicatio ns:Xerosis of skin APPLY TOPICALLY IF NEEDED FOR DRY SKIN 400 mL 025 Active nicotine polacrilex (Nicorette) 2 MG gum Chew 1 each (2 mg) if needed for smoking cessation. Every 1-2 hours 100 each 1 025 2024 Active benztropine (Cogentin) 0.5 MG tablet Take 0.5 mg by mouth at bedtime. 023 2024 Discontinued(O ther) Suboxone 8-[address] 2 FILM UNDER TONGUE ONCE A DAY 2024 Discontinued(O ther) haloperidol (Haldol) 5 MG tablet Take 5 mg by mouth at bedtime. 2024 Discontinued(O ther) sertraline (Zoloft) 100 MG tablet Take 100 mg by mouth in the morning. 2024 Discontinued(O ther) sertraline (Zoloft) 50 MG tablet TAKE 1 TABLET BY MOUTH DAILY TAKE WITH SERTRALINE 100MG TO MAKE 150MG A DAY 023 2024 Discontinued(O ther) melatonin 3 MG tablet Take 1 tablet (3 mg) by mouth at bedtime. 30 tablet 2 023 2024 Discontinued losartan (Cozaar) 50 MG tablet Take 1 tablet (50 mg) by mouth in the morning. 90 tablet 024 2024 Discontinued(R eorder (will not trigger notification to Pharmacy)) Ventolin HFA 108 (90 Base) MCG/ACT inhaler INHALE 2 PUFFS EVERY 6 HOURS IF NEEDED FOR WHEEZING OR SHORTNESS OF BREATH. 18 g 2 024 2024 Discontinued(R eorder (will not trigger notification to Pharmacy)) potassium chloride CR (Klor-Con) 10 MEQ ER tablet TAKE 1 TABLET (10 MEQ) BY MOUTH IN THE MORNING 30 tablet 1 024 2024 Discontinued(O ther) Incruse Ellipta 62.5 MCG/ACT aerosol powder INHALE 1 PUFF BY MOUTH EVERY DAY IN THE MORNING 30 each 2 024 2024 Discontinued(R eorder (will not trigger notification to Pharmacy)) docusate sodium (Colace) 100 MG capsuleIndicati ons:Uncomplicat ed opioid dependence (CMS/HCC) TAKE 1 CAPSULE (100 MG) BY MOUTH IN THE MORNING AND AT BEDTIME NEEDED FOR CONSTIPATION 180 capsule 024 2024 Discontinued(R eorder (will not trigger notification to Pharmacy)) nicotine (Nicoderm, Step 1) 21 MG/24HR patch PLACE 1 PATCH ON THE SKIN 1 TIME EACH DAY AT THE SAME TIME. 42 patch 024 2024 Discontinued(O ther) Fluticasone-Luis meterol (Wixela Inhub) 250-50 MCG/ACT aerosol powder Inhale. 2024 Discontinued(T herapy completed) ammonium lactate (Lac-Hydrin) 12 % lotionIndicatio ns:Xerosis of skin APPLY TOPICALLY IF NEEDED FOR DRY SKIN 400 mL 2024 Discontinued(R eorder (will not trigger notification to Pharmacy)) hydroCHLOROthia zide 12.5 MG tabletIndicatio ns:Swelling of both lower extremities,Rosa vated blood pressure reading in office with diagnosis of hypertension Take 1 tablet (12.5 mg) by mouth Once per day. 30 tablet 1 025 2024 Discontinued mineral oil-hydrophilic petrolatum (Aquaphor) ointment Apply topically if needed for dry skin. 396 g 1 025 2024 Discontinued(O ther) nicotine polacrilex (Nicorette) 2 MG gum Chew 1 each (2 mg) if needed for smoking cessation. 100 each 1 025 2024 Discontinued(R eorder (will not trigger notification to Pharmacy)) losartan (Cozaar) 50 MG tabletIndicatio ns:Primary hypertension Take 1 tablet (50 mg) by mouth Once per day. 90 tablet 025 2024 Discontinued Umeclidinium Chelsea (Incruse Ellipta) 62.5 MCG/ACT aerosol powderIndicatio ns:Shortness of breath Inhale 1 Act (62.5 mcg) Once daily. 30 each 2 025 2024 Discontinued(O ther) Ventolin HFA 108 (90 Base) MCG/ACT inhalerIndicati ons:Shortness of breath Inhale 2 puffs every 6 (six) hours if needed for wheezing or shortness of breath. 18 g 1 025 2024 Discontinued(R eorder (will not trigger notification to Pharmacy)) nicotine polacrilex (Nicorette) 2 MG gum Chew 1 each (2 mg) if needed for smoking cessation. Every 1-2 hours 100 each 1 025 2024 Discontinued(R eorder (will not trigger notification to Pharmacy)) hydroCHLOROthia zide 12.5 MG tabletIndicatio ns:Swelling of both lower extremities,Rosa vated blood pressure reading in office with diagnosis of hypertension TAKE 1 TABLET BY MOUTH ONCE PER DAY. 30 tablet 1 025 2024 Discontinued(O ther) Active Problems Problem Noted Date Diagnosed Date [...] 12 months) . Cornell is connected with [facility] for psychiatric services and attends weekly sessions with the [facility]. Resolved Problems Problem Noted Date Diagnosed Date Resolved Date Wax in ear 07/24/2023 09/05/2023 Encounters * This document contains information received from the source organization and may not represent a complete record from that organization. Date Type Department Care Team Description 04/09/2025 9:45 [place] [address] Alix Vivar MD Shortness of breath (Primary Dx); Venous insufficiency of both lower extremities; Iron deficiency anemia, unspecified iron deficiency anemia type; Uncomplicated opioid dependence (CMS/HCC); Xerosis of skin 04/09/2025 Travel 04/06/2025 Refill [facility] [address] [place] [address] Marge Salomon NP Swelling of both lower extremities; Elevated blood pressure reading in office with diagnosis of hypertension 04/02/[address] [address] Alix Vivar MD Call Back Request 04/01/2025 [place] [address] Morena Vasquez ANP Lipid Panel, Standard, Comprehensive Metabolic Panel, CBC auto differential, B Type Natriuretic Peptide (BNP) 03/22/[address] [address] Alix Vivar MD 03/19/2025 1:00 PM EDT Office Visit [address] [address] Morena Vasquez ANP Bilateral lower extremity edema (Primary Dx); Ascending aorta dilation (CMS/HCC); Primary hypertension; Shortness of breath; Screening for colon cancer; Nicotine dependence, uncomplicated, unspecified nicotine product type; Venous insufficiency of both lower extremities 03/19/2025 Travel 03/19/[address] [address] Alix Vivar MD Durable Medical Equipment 03/19/[address] [address] Alix Vivar MD ER Follow-up 03/17/2025 10:40 AM EDT Office Visit [facility] [address] [address] [place] Schreiber MD Bilateral lower extremity edema (Primary Dx); Weight gain; Tobacco dependence in remission; Hypertension, unspecified type 03/11/2025 9:20 AM EDT [facility] [address] [address] Chloé Castellano MD Chronic obstructive pulmonary disease, unspecified COPD type (CMS/HCC) (Primary Dx) 03/11/2025 Telephone [facility] [address] [address] Marge Salomon NP 03/11/[address] [address] Alix Vivar MD Nurse Triage 03/11/2025 Travel 03/10/[address] [address] Alix Vivar MD Med Refill 03/10/[address] [address] Alix Vivar MD Medication Question 03/08/2025 Patient Outreach [address] [address] Bebo Medina Recovery Supports 03/05/2025 9:20 AM EDT Office Visit [facility] [address] [address] Marge Salomon NP Swelling of both lower extremities (Primary Dx); Onychomycosis; Xerosis of skin; Elevated blood pressure reading in office with diagnosis of hypertension 03/05/2025 Results Follow-Up [facility] [address] [address] Marge Salomon NP Basic Metabolic Panel 03/05/2025 [...] Mass Index 38.47 04/09/2025 10:06 AM EDT Plan of Treatment Upcoming Encounters Date Type Department Care Team (Late st Contact Info) Description 04/30/2025 9:45 AM EDT Office Visit [facility] [address] [place] [address] Alix Vivar MD [address] [place] [phone] 05/21/2025 9:00 AM EDT Office Visit [facility] [address] [place] [address] Alix Vivar MD [address] [place] [address] 05/31/2025 10:30 AM EDT Office Visit [facility] [address] [place] [address] Latosha Lira, GUSSET MAKER [address] [place] [address] Health Maintenance Due Date Last Done Comments CT Colonography 1967 Colonoscopy 1967 Colorectal Cancer Screening 1967 FIT DNA/Cologuard 1967 FIT 1967 FOBT 1967 Sigmoidoscopy 1967 Hepatitis B Vaccines (1 of 3 - 19+ 3-dose series) 1986 Zoster Vaccines (1 of 2) 2017 Pneumococcal Vaccine: 50+ Years (2 of 2 - PCV) 04/06/2021 04/06/2020 DTaP/Tdap/Td Vaccines (2 - Td or Tdap) 06/23/2022 06/23/2012 COVID-19 Vaccine ( season) 2025 10/19/2022, 08/25/2021, 12/09/2020, Additional history exists Influenza Vaccine (#1) 2025 , 08/25/2021, 04/13/2020, Additional history exists Depression Monitoring 10/07/2025 04/09/2025, 025 Tobacco Screening 03/19/2026 03/19/2025 Alcohol/Substance Use Screening 04/09/2026 04/09/2025 Disability Screening 04/09/2026 04/09/2025 SDOH Screening 04/09/2026 04/09/2025 Lipid Panel 04/01/2030 04/01/2025, 09/24/2023 RSV Patients and Patients Aged 60 [...] Procedure Name Priority Date/Time Associated Diagnosis Comments CBC WITH AUTO DIFFERENTIAL Routine 04/01/2025 1:37 PM EDT Shortness of breath ALBUMIN, RANDOM URINE W/CREATININE Routine 04/01/2025 1:37 PM EDT Primary hypertension B TYPE NATRIURETIC PEPTIDE (BNP) Routine 04/01/2025 1:37 PM EDT Primary hypertension COMPREHENSIVE METABOLIC PANEL Routine 04/01/2025 1:37 PM EDT Bilateral lower extremity edema LIPID PANEL, STANDARD Routine 04/01/2025 1:37 PM EDT Primary hypertension POCT COVID-19 AG ABREU ID NOW Routine [...] Recently Relevant to Health Maintenance Results * Albumin, Random Urine W/Creatinine (04/01/2025 1:37 PM EDT) Creatinine, Urine 166.32 mg/dL [facility] Microalbumin Urine 20.0 mg/L H [facility] Microalbum Creatinine Ratio Ur 12.0 <30 ug/mg cr [facility] Comment:Albumin/Creatinine R atio Reference Ranges: Normal: < 30 ug/mg creatinine Microalbuminuria: 30 - 300 ug/mg creatinineClinical Albuminuria: > 300 ug/mg creatinine Urine (Urine, Random) 04/01/2025 1:37 PM EDT 04/01/2025 4:11 PM EDT [facility] LAB URINE ORDERABLES Final Resul t [facility] [address] [place] [phone] * (ABNORMAL) CBC auto differential (04/01/2025 1:37 PM EDT) White Blood Count 5.3 4.8 - 10.8 X10*3/uL [facility] Red Blood Count 3.63(L) 4.60 - 5.80 X10*6/uL [facility] Hemoglobin 10.7(L) 14.0 - 18.0 g/dl [facility] Hematocrit 31.9(L) 42.0 - 52.0 % [facility] Mean Corpuscular Volume 87.9 80.0 - 98.0 fL [facility] Mean Corpuscular Hemoglobin 29.5 27.0 - 33.0 pg [facility] Mean Corpuscular HGB Conc 33.5 31.0 - 36.0 g/dl [facility] Red Cell Distribution Width 12.8 11.0 - 16.0 % [facility] Platelet Count 209 160 - 400 X10*3/uL [facility] Mean Platelet Volume 10.3 9.4 - 12.4 fL [facility] Neutrophils Percent Auto 44.9(L) 45 - 73 % [facility] Imm Gran Pct Auto 0.2 0.0 - 0.4 % [facility] Lymphocytes Percent Auto 34.2 20 - 40 % [facility] Monocytes Percent Auto 14.6(H) 2 - 11 % [facility] Eosinophils Percent Auto 5.7(H) 0 - 4 % [facility] Basophils Percent Auto 0.4 0 - 2 % [facility] NRBC Pct Auto 0.0 0.0 - 0.2 /100WBC [facility] Neutrophils Absolute Auto 2.4 2.0 - 8.3 x10*3/uL [facility] Imm Gran Abs Auto 0.01 0.00 - 0.03 X10*3/uL [facility] Lymphocytes Absolute Auto 1.8 1.2 - 4.9 X10*3/uL [facility] Monocytes Absolute Auto 0.8 0.1 - 1.2 X10*3/uL [facility] Eosinophils Absolute Auto 0.3 0.0 - 0.4 X10*3/uL [facility] Basophils Absolute Auto 0.0 0.0 - 0.2 X10*3/uL [facility] NRBC Abs Auto 0.000 0.0 - 0.012 X10*3/uL [facility] Blood Venous blood specimen / Unknown 04/01/2025 1:37 PM EDT 04/01/2025 4:06 PM EDT us Morena Vasquez ANP LAB BLOOD ORDERABLES Final Resul t [facility] [address] [place] [phone] * B Type Natriuretic Peptide (BNP) (04/01/2025 1:37 PM EDT) B Type Natriuretic Peptide 12 <100 pg/mL [facility] Blood Venous blood specimen / Unknown 04/01/2025 1:37 PM EDT 04/01/2025 4:06 PM EDT Morena Vasquez ANP LAB BLOOD ORDERABLES Final Resul t Performing Organization Address [facility] de Phone Number [facility] [address] [place] [phone] * (ABNORMAL) Lipid Panel, Standard (04/01/2025 1:37 PM EDT) Triglycerides 165(H) <150 mg/dL [facility] Comment:Desirable Triglyceri de: less than 150 mg/dLBorderline High Triglyceride 150-199 mg/dLHigh Triglyceride: 200-499 mg/dLVery High Triglyceride: greater than or equal to 5OO mg/dL Cholesterol 139 <200 mg/dL [facility] Comment:Desirable Cholestero l: less than 200 mg/dLBorderline High Cholesterol: 200-239 mg/dLHigh Cholesterol: greater than 239 mg/dL LDL Cholesterol Calculated 70 <100 mg/dL [facility] Comment:Desirable LDL: less than 100 mg/dLNear Optimal/Above Optimal LDL: 110- 129 mg/dLBorderline High LDL: 130-159 mg/dLHigh LDL: 160-189 mg/dLVery High LDL: greater than or equal to 190 mg/dL HDL Cholesterol 36(L) >40 mg/dL [facility] Comment:Desirable HDL: great er than 40 mg/dL Note: This HDL assay may give artificially low results in patients with liver disease. Blood Venous blood specimen / Unknown 04/01/2025 1:37 PM EDT 04/01/2025 4:11 PM EDT us Morena Vasquez ANP LAB BLOOD ORDERABLES Final Resul t Performing Organization Address [facility] Co de Phone Number [facility] [address] [place] [phone] * (ABNORMAL) Comprehensive Metabolic Panel (04/01/2025 1:37 PM EDT) Sodium 142 135 - 145 mmol/L [facility] Potassium 4.0 3.3 - 5.1 mmol/L [facility] Chloride 106 96 - 108 mmol/L [facility] Carbon Dioxide 30(H) 22 - 29 mmol/L [facility] Anion Gap 10(L) 12 - 20 [facility] Urea Nitrogen (BUN) 24(H) 9 - 16 mg/dL [facility] Creatinine, Serum 0.96 0.5 - 1.4 mg/dL [facility] Estimated Glomerular Filt Rate >60 [facility] Comment:Chronic Kidney Disea se: Estimated GFR < 60 mL/min/1.37m2Pdxmkp Kidney Disease: Estimated GFR < 15 mL/min/1.73m2 Glucose 91 60 - 115 mg/dL [facility] Calcium 9.1 8.4 - 10.2 mg/dL [facility] Bilirubin, Total 0.4 0.0 - 1.0 mg/dL [facility] Aspartate Amino Transferase 25 5 - 37 U/L [facility] Alanine Aminotransferase 28 0 - 40 U/L [facility] Total Protein 6.8 6.5 - 8.0 g/dL [facility] Albumin Level 3.9 3.5 - 5.0 g/dL [facility] Alkaline Phosphatase 68 39 - 117 U/L [facility] Blood Venous blood specimen / Unknown 04/01/2025 1:37 PM EDT 04/01/2025 4:11 PM EDT us Morena [facility] LAB BLOOD ORDERABLES Final Resul t [facility] [address], [place] [phone] * Influenza B (ID NOW Rapid Molecular) (03/11/2025 10:13 AM EDT) Influenza B Negative Negative, Indeterminate [facility] Swab 03/11/2025 10:1 3 AM EDT Chloé Castellano MD POINT OF CARE TEST ENTER/E DIT ORDERABLES Final Result Performing Organization Address [facility]/ZIP Co de Phone Number [facility] [address] [place] [phone] * Influenza A (ID NOW Rapid Molecular) (03/11/2025 10:13 AM EDT) Pathologist [facility] Influenza A Negative Negative, Indeterminate [facility] Swab 03/11/2025 10:1 3 AM EDT Chloé Castellano MD POINT OF CARE TEST ENTER/E DIT ORDERABLES Final Result Performing Organization Address [facility]/ZIP Co de Phone Number [facility] [address] [place] [phone] * POCT COVID-19 Ag Abreu ID NOW (03/11/2025 10:13 AM EDT) Pathologist [facility] Coronavirus Antigen PCR Negative Negative, Indeterminate, None Detected, Invalid, Specimen unsatisfactory for evaluation, Weakly Positive, 2+ Swab 03/11/2025 10:1 3 AM EDT Chloé Castellano MD POINT OF CARE TEST ENTER/E DIT ORDERABLES Final Result * (ABNORMAL) Basic Metabolic Panel (03/05/2025 10:46 AM EDT) Pathologist [facility] Sodium 143 135 - 145 mmol/L [facility] Potassium 4.2 3.3 - 5.1 mmol/L [facility] Chloride 111(H) 96 - 108 mmol/L [facility] Carbon Dioxide 26 22 - 29 mmol/L [facility] Anion Gap 10(L) 12 - 20 [facility] Urea Nitrogen (BUN) 30(H) 9 - 16 mg/dL [facility] Creatinine, Serum 0.80 0.5 - 1.4 mg/dL [facility] Estimated Glomerular Filt Rate >60 [facility] Comment:Chronic Kidney Disea se: Estimated GFR < 60 mL/min/[id number] Kidney Disease: Estimated GFR < 15 mL/min/1.73m2 Glucose 95 60 - 115 mg/dL [facility] Calcium 9.5 8.4 - 10.2 mg/dL [facility] Blood Venous blood specimen / Unknown 03/05/2025 10:46 AM EDT 03/05/2025 12:17 PM EDT us Marge Salomon SNOWBOARD INSTRUCTOR LAB BLOOD ORDERABLES Final Resu lt Performing Organization Address [facility]/ZIP Co de Phone Number [facility] [address] [place] [phone] * Hepatitis C Antibody with Reflex to HCV, RNA, Quantitative, Real-Time PCR (09/24/2023 10:36 AM EST) Hepatitis C Antibody Nonreactive Nonreactive [facility] Comment:Antibodies to HCV no t detected; does not exclude early acuteHCV infection. Blood Venous blood specimen / Unknown 09/24/2023 10:36 AM EST 09/24/2023 11:22 AM EST us Alix Santos MD LAB BLOOD ORDERAB LES Final Result Performing Organization Address [facility]/ZIP Co de Phone Number [facility] [address] [place] [phone] * HIV-1/2 Antigen and Antibodies, Fourth Generation, with Reflexes (09/24/2023 10:36 AM EST) HIV AB/AG Nonreactive Nonreactive [facility] Comment:HIV-1 p24 Ag and/or HIV-1/HIV-2 Ab not detected.A test result that is nonreactive does not exclude thepossibility of exposure to or infection with HIV-1 and/orHIV-2. Nonreactive results in this assay for individualswith prior exposure to HIV-1 and/or HIV-2 may be due toantigen and antibody levels that are below the limit ofdetection of this assay.The [facility] HIV Ag/Ab Combo assay result andsupplemental assay results should be interpreted inconjunction with the patient's clinical presentation,history and other laboratory results. If the results areinconsistent with clinical evidence, additional testing issuggested to confirm the result. Blood Venous blood specimen / Unknown 09/24/2023 10:36 AM EST 09/24/2023 11:22 AM EST us Alix Santos MD LAB BLOOD ORDERAB LES Final Result [facility] [address] [place] [phone] from Last 3 Months or Most Recently Relevant to Health Maintenance [facility] Care Teams Copywriting Intern Relationship Specialty Start Date End Date Alix Vivar MD [address] [place] [phone] PCP - General Internal Medicine 04/17/23
--- OUTSIDE RECORDS SUMMARY | 2025-04-09 12:35 | XMS_ITS | Encounter Summary ---
Author Organization [employer] Address [address] [facility] [address] [place] [address] Care Team Providers Care Vibration Analyst Name Role Phone Alix Vivar MD Primary Care Pro vider Reason for Visit * Reason Comments Med Refill Encounter Details Date Type Department Care Team (Late st Contact Info) Description 04/06/2025 Refill [facility] [address] [place] [address] Marge Salomon NP [address] [place] [address] Swelling of both lower extremities; Elevated blood [...] with others, in a hotel, in a halfway, living outside on the street, on a [...] Description 04/30/2025 9:45 AM EDT Office Visit [facility] [address] [place] [phone] Alix Vivar MD [address] [place] [address] 05/21/2025 9:00 AM EDT Office Visit [facility] [address] [place] [address] Alix Vivar MD [address] [place] [address] 05/31/2025 10:30 AM EDT Office Visit [facility] [address] [place], [place] [phone] Latosha Lira, ORNAMENT SETTER [address] [place] [address] documented as of this encounter Visit Diagnoses Diagnosis Swelling of both lower extremities Elevated blood pressure reading in office with diagnosis of hypertension documented in this encounter Additional Health Concerns Assessment Noted Time PHQ-9 Depression Total Score: 12 023 9:49 AM EST documented as of this encounter Care Teams Vibration Analyst Relationship Specialty Start Date End Date Alix Vivar MD [address] [place] [phone] PCP - General Internal Medicine 04/17/23 documented as of this encounter
--- OUTSIDE RECORDS SUMMARY | 2025-04-09 12:35 | XMS_ITS | Encounter Summary ---
Author Organization [employer] Address [address] [facility] 7t [place] [address] Care Team Providers Care Yarn Comber Name Role Phone Alix Vivar MD Primary Care Pro vider Reason for Visit * Reason Comments Med Refill Encounter Details Date Type Department Care Team (Late st Contact Info) Description 11/18/2023 Refill [facility] [address] [place], [place] [phone] Marie Celaya MD [address] [place] [address] Social History Tobacco Use Types Packs/Day Years [...] with others, in a hotel, in a prison, living outside on the street, on a [...] the past 12 months, has t he [employer], gas, oil or water company threatened to [...] Description 04/30/2025 9:45 AM EDT Office Visit [facility] [address] [place] [phone] Alix Vivar MD [address] [place] [phone] 05/21/2025 9:00 AM EDT Office Visit [facility] [address] [place] [phone] Alix Vivar MD [address] [place] [address] 05/31/2025 10:30 AM EDT Office Visit [facility] [address] [place], [place] [phone] Latosha Lira FNP [address] [place], [place] [phone] documented as of this encounter Visit Diagnoses Not on filedocumented in this encounter Additional Health Concerns Assessment Noted Time PHQ-9 Depression Total Score: 12 023 9:49 AM EST documented as of this encounter Care Teams Yarn Comber Relationship Specialty Start Date End Date Alix Vivar MD [address] [place] [phone] PCP - General Internal Medicine 04/17/23 documented as of this encounter
--- OUTSIDE RECORDS SUMMARY | 2025-04-09 12:35 | XMS_ITS | Encounter Summary ---
Author Organization [employer] Address [address] [facility] 7 [place] [address] Care Team Providers Care Systems Project Manager Name Role Phone Alix Vivar MD Primary Care Pro vider Reason for Visit * Reason Comments Med Refill Encounter Details Date Type Department Care Team (Late st Contact Info) Description 11/18/2023 Refill [facility] [address] [place] [address] Ailx Vivar MD [address] [place] [address] Social History Tobacco Use Types Packs/Day Years [...] with others, in a hotel, in a custodial, living outside on the street, on a [...] the past 12 months, has t he [employer] gas, oil or water company threatened to [...] Description 04/30/2025 9:45 AM EDT Office Visit [facility] [address] [place] [phone] Alix Vivar MD [address] [place] [phone] 05/21/2025 9:00 AM EDT Office Visit [facility] [address] [place] [phone] Alix Vivar MD [address] [place] [address] 05/31/2025 10:30 AM EDT Office Visit [facility] [address] [place], [place] [phone] Latosha Lira FNP [address] [place], [place] [phone] documented as of this encounter Visit Diagnoses Not on filedocumented in this encounter Additional Health Concerns Assessment Noted Time PHQ-9 Depression Total Score: 12 023 9:49 AM EST documented as of this encounter Care Teams Systems Project Manager Relationship Specialty Start Date End Date Alix Vivar MD [address] [place] [phone] PCP - General Internal Medicine 04/17/23 documented as of this encounter
--- OUTSIDE RECORDS SUMMARY | 2025-04-09 12:35 | XMS_ITS | Encounter Summary ---
Author Organization [employer] Address [address] [facility] [address] [place] [address] Care Team Providers Care Php Consultant Name Role Phone Alix Vivar MD Primary Care Pro vider Encounter Details Date Type Department Care Team (Latest Contact Info) Description 04/09/2025 Travel Social History Tobacco Use Types Packs/Day Years [...] Author Not at all 04/09/2025 11:14 AM MOOT Christina Maravilla MA * Feeling down, depressed, or hopeless Answer Date of Assessment Author Several days 04/09/2025 11:14 AM Christina Chery MA * Trouble falling or staying asleep, or sleeping too much Answer Date of Assessment Author Several days 04/09/2025 11:14 AM Christina Chery MA * Feeling tired or having little [...] than half the days 04/09/2025 11:14 AM MOOT Christina Maravilla MA * Moving or speaking so slowly that other people could have noticed? Or the opposite - being so fidgety or restless that you have been moving around a lot more than usual. Answer Date of Assessment Author Not at all 04/09/2025 11:14 AM MOOT Christina Maravilla MA * Thoughts that you would be better off or hurting yourself in some way Answer Date of Assessment Author Not at all 04/09/2025 11:14 AM MOOT Christina Maravilla MA * Patient Health Questionnaire-9 Score Answer Date of Assessment Author 11 04/09/2025 11:14 AM MOOT Christina Maravilla MA * Over the last 2 weeks, how often have you been bothered by any of the following problems? Question Answer Date of Assessment Author Feeling nervous, anxious, or on edge 1 04/09/2025 11:13 AM EDT Christina Maravilla MA Not being able to stop or co ntrol worrying 2 04/09/2025 11:13 AM MOOT Christina Maravilla MA Worrying too much about diff erent things 1 04/09/2025 11:13 AM MOOT Christina Maravilla MA Trouble relaxing 1 04/09/2025 11:13 AM MOOT Christina Maravilla MA Being so restless that it is hard to sit still 1 04/09/2025 11:13 AM Christina Chery MA Becoming easily annoyed or irritable 2 04/09/2025 11:13 AM MOOT Christina Maravilla MA Feeling afraid as if somethi ng awful might happen 2 04/09/2025 11:13 AM Christina Chery MA ANGELY-7 Total Score 10 04/09/2025 11:13 AM Christina Chery MA documented as of this encounter Plan of Treatment Upcoming Encounters Date Type Department Care Team (Late st Contact Info) Description 04/30/2025 9:45 AM EDT Office Visit [facility] [address] [place] [phone] Alix Vivar MD [address] [place] [address] 05/21/2025 9:00 AM EDT Office Visit [facility] [address] [place] [address] Alix Vivar MD [address] [place] [address] 05/31/2025 10:30 AM EDT Office Visit [facility] [address] [place], [place] [phone] Latosha Lira FNP [address] [place], [place] [phone] documented as of this encounter Visit Diagnoses Not on filedocumented in this encounter Additional Health Concerns Assessment Noted Time PHQ-9 Depression Total Score: 11 025 11:14 AM EDT documented as of this encounter Care Teams Php Consultant Relationship Specialty Start Date End Date Alix Vviar MD [address] [place] [address] [phone] PCP - General Internal Medicine 04/17/23 documented as of this encounter
[2025-04-09 13:08] LABS: MANUAL DIFF FLAG NO
[2025-04-09 13:28] LABS: Hematocrit 30.8 % (42.0-52.0); Hemoglobin 10.2 g/dl (14.0-18.0); Imm Gran Abs Auto 0.01 X10*3/uL (0.00-0.03); Imm Gran Pct Auto 0.2 % (0.0-0.4); Lymphocytes Absolute Auto 1.2 X10*3/uL (1.2-4.9); Mean Corpuscular HGB Conc 33.1 g/dl (31.0-36.0); Mean Corpuscular Hemoglobin 29.5 pg (27.0-33.0); Mean Corpuscular Volume 89.0 fL (80.0-98.0); NRBC Abs Auto 0.000 X10*3/uL (0.0-0.012); NRBC Pct Auto 0.0 /100WBC (0.0-0.2); Platelet Count 187 X10*3/uL (160-400); Red Blood Count 3.46 X10*6/uL (4.60-5.80); Reticulocytes Absolute 0.061 X10*6/uL (0.026-0.095); White Blood Count 4.8 X10*3/uL (4.8-10.8)
[2025-04-09 13:46] LABS: Hemoglobin A1C 101.8304 umol/L; Total Hemoglobin (HGBA1C) 2712.3574 umol/L
[2025-04-09 16:27] LABS: Iron 77 mcg/dL (45-160); Percent Iron Saturation 31 % (15-50); Total Iron Binding Capacity 248 mcg/dL (228-428); Unsaturated Iron Binding 171 ug/dL
[2025-04-09 16:51] LABS: Ferritin 102 ng/mL (20-250)
[2025-04-09 16:58] LABS: Folate 13.5 ng/mL (> or = 4.0); Vitamin B12 260 pg/mL (200-900)
== END 2025-04-09 11:49 | disposition home or self-care (01) ==
LOC: HO.HHCL 11:48
PROVIDERS: PCP Student in an Organized Health Care Education/Training Program; Visit Provider Student in an Organized Health Care Education/Training Program
DX: R06.02 Shortness of breath (principal); D50.9 Iron deficiency anemia, unspecified
CPT/HCPCS: 36415; 71046; 82607; 82728; 82746; 83010; 83036; 83540; 83615; 84443; 85025; 85045; 85652; 86140

== ENCOUNTER → 2025-04-09 12:28 | Outpatient (BNV) | payer MEDICAID, SELFPAY | PROVIDERS: PCP Student in an Organized Health Care Education/Training Program; Visit Provider Radiology Diagnostic Radiology | DX: R06.02 Shortness of breath (principal) | CPT/HCPCS: 71046 ==